=== PATIENT | male | born 1950 | race Native Hawaiian/Other Pacific Islander ===

== ENCOUNTER 2017-07-02 14:35 | Inpatient (IN) | payer MEDICARE ==
[2017-07-02] MEDS ORDERED: Enalaprilat 2.5 MG/2 ML ONE (14:59)
[2017-07-02] MEDS ORDERED: Enalaprilat 2.5 MG/2 ML IVP STA (15:03)
[2017-07-02 15:20] LABS: BASO % 0.3 % (0.0-2.0); EOS # 0.1 K/uL (0.0-0.7); HEMATOCRIT 36.4 % (35.0-51.0); LYMPH # 1.5 K/uL (1.0-4.3); LYMPH % 13.2 % (20.0-40.0); MEAN CELL VOLUME 86.8 fL (80.0-94.0); MEAN CORPUSCULAR HEMOGLOBIN 27.5 pg (27.0-31.0); MEAN CORPUSCULAR HGB CONC 31.7 g/dL (33.0-37.0); MEAN PLATELET VOLUME 8.4 fL (7.2-11.7); MONO # 0.5 K/uL (0.0-0.8); MONO % 4.7 % (0.0-10.0); NRBC % 0.1 % (0.0-2.0)
[2017-07-02 15:27] LABS: INR 1.1; POTASSIUM 4.2 mmol/L (3.6-5.2)
[2017-07-02 15:29] LABS: ALB/GLOB RATIO 0.9 (1.0-2.1); BILIRUBIN,TOTAL 0.6 mg/dL (0.2-1.3); TOTAL PROTEIN 7.6 g/dL (6.3-8.3)
[2017-07-02 15:30] LABS: CALCIUM 8.3 mg/dl (8.6-10.4)
--- NOTE | 2017-07-02 15:38 | RAD ---
HISTORY: SOB COMPARISON: None available. TECHNIQUE: Chest, one view. FINDINGS: Examination limited by habitus, hypoinflation, and patient obliquity. LUNGS: Interstitial prominence may reflect infection or edema. Mild biapical pleural thickening. Please note that chest x-ray has limited sensitivity for the detection of pulmonary masses. PLEURA: Small bilateral pleural effusions. No definite pneumothorax . CARDIOVASCULAR: Enlargement of the cardiomediastinal silhouette. Ectatic aorta. Atherosclerotic calcifications. Median sternotomy wires with evidence of CABG. OSSEOUS STRUCTURES: Degenerative changes. VISUALIZED UPPER ABDOMEN: Unremarkable. OTHER FINDINGS: None. IMPRESSION: Interstitial prominence may reflect infection or edema. Small bilateral pleural effusions. Mild biapical pleural thickening. Enlarged of the cardiomediastinal silhouette. Ectatic aorta. Atherosclerotic calcifications. Median sternotomy wires with evidence of CABG.
[2017-07-02 15:43] LABS: TROPONIN I 0.11 ng/mL (0.00-0.120)
[2017-07-02 16:46] LABS: DRAW SITE RB
[2017-07-02] MEDS ORDERED: Dextrose 50% SYRINGE Inj (50 ml) IV STA ×2 (16:51→21:29)
[2017-07-02] MEDS ORDERED: Dextrose 50% SYRINGE Inj (50 ml) ONE ×3 (16:56→21:26)
[2017-07-02] MEDS ORDERED: Nitroglycerin 2% Ointment Foilpak UD TOP STA (17:00)
[2017-07-02] MEDS ORDERED: Nitroglycerin 2% Ointment Foilpak UD TOP ONE ×2 (17:04→17:09)
[2017-07-02 18:45] LABS: ABG ALLEN TEST POS; DRAW SITE RR
[2017-07-02] MEDS ORDERED: Dextrose 50% SYRINGE Inj (50 ml) IVP STA (18:56)
--- NOTE | 2017-07-02 20:47 | C.PDOC ---
Time Seen by Provider: 07/02/17 14:49 Chief Complaint (Nursing): Respiratory Distress History Per: Patient, Family () History/Exam Limitations: clinical condition Onset/Duration Of Symptoms: Days (about 1 week) Current Symptoms Are (Timing): Worse Current Respiratory Medications: See Home Med List Severity: Severe Associated Symptoms: Chest Pain, Ankle/Leg Swelling, Light-headedness Reports Recently: Treated By A Physician Additional History Per: Prior Records Past Medical History Reviewed: Historical Data, Nursing Documentation, Vital Signs Vital Signs: Last Vital Signs Temp 97.8 F 07/02/17 15:12 Pulse 78 07/02/17 18:57 Resp 26 H 07/02/17 15:52 BP 157/95 H 07/02/17 15:52 Pulse Ox 100 07/02/17 15:52 - Medical History PMH: CHF, Diabetes, HTN, Hypercholesterolemia Other PMH: Cerebral aneurysm Family History: States: Unknown Family Hx - Social History Hx Alcohol Use: No Hx Substance Use: No - Immunization History Hx Tetanus Toxoid Vaccination: No Hx Influenza Vaccination: No Hx Pneumococcal Vaccination: Yes Review Of Systems Constitutional: Positive for: Weakness. Negative for: Fever Cardiovascular: Positive for: Chest Pain, Edema Respiratory: Positive for: Shortness of Breath. Negative for: Hemoptysis Gastrointestinal: Negative for: Vomiting, Abdominal Pain Musculoskeletal: Negative for: Neck Pain Skin: Negative for: Rash Neurological: Positive for: Altered Mental Status. Negative for: Weakness, Seizures, Headache Physical Exam - Physical Exam Appears: In Acute Distress, Chronically Ill Skin: Normal Color, Warm, Dry Head: Atraumatic, Normacephalic Eye(s): bilateral: PERRL Neck: Normal ROM, Supple Cardiovascular: Rhythm Regular Respiratory: Rales Gastrointestinal/Abdominal: Soft, No Tenderness, Distention Extremity: Normal ROM, Pedal Edema Neurological/Psych: Eyes Open With Command, Slow To Respond With Command, Other (Moving all extremities) ED Course And Treatment - Laboratory Results Result Diagrams: 07/02/17 15:14 07/02/17 15:14 Lab Interpretation: Abnormal Interpretation Of Abnormal: Elevated Bun/Cr and BNP ECG: Interpreted By Me, Viewed By Me ECG Rhythm: Sinus Rhythm, R BBB, PVC ECG Interpretation: Abnormal Rate From EC O2 Sat by Pulse Oximetry: 85 Pulse Ox Interpretation: Abnormal Interpretation Of Abnormal: Hypoxia on RA - Radiology CXR: Viewed By Me, Read By Radiologist CXR Interpretation: Yes: Other (CHF) Progress Note: Pt had two hypoglycemic episodes while in the ED that were treated with D50 IV. Pt was also found to be retaining CO2 and was started on BiPAP. - Physician Consult Information Physician Contacted: Cedrick Geronimo (ICU) Outcome Of Conversation: He evaluated pt in the ED and admitted to ICU. Progress - Interventions Interventions:: Observation, Oxygen - Medications Administered Intravenous: Antihypertensive, Diuretic, Other (D50) - Data Reviewed Data Reviewed: Lab, Diagnostic imaging, EKG, Old records - Patient Status Patient status: Partially improved - Critical Care Citical Care: Excluding Proc Time Critical Care Time: 60 minutes - Continuity of Care Discussed patient case with:: Patient, Family-HIPPA compliant, ED Nurse, PMD Discussed pt. case with senior professional services consultant/specialty: Pulmonary/Crit. Care - Patient Plan Patient Plan: Admission, ICU Disposition Discussed With : Paola Adams Comment: She accepted pt on her service. Doctor Will See Patient In The: Hospital Counseled Patient/Family Regarding: Studies Performed, Diagnosis - Disposition Disposition: HOSPITALIZED Disposition Time: 20:51 Condition: SERIOUS - Clinical Impression Clinical Impression: Pulmonary edema, Anasarca, Hypoglycemia
[2017-07-02 21:33] LABS: RBC URINE < 1 /hpf (0-3); URINE BACTERIA RARE (<OCC); URINE BILIRUBIN NEGATIVE (NEGATIVE); URINE BLOOD 1+ (NEGATIVE); URINE COLOR Yellow (YELLOW); URINE GLUCOSE (UA) NORMAL (Normal); URINE HYALINE CAST 0-2 /lpf (0-2); URINE KETONE NEGATIVE (NEGATIVE); URINE LEUKOCYTE ESTERASE NEG Leu/uL (Negative); URINE PROTEIN 3+ mg/dL (NEGATIVE); URINE UROBILINOGEN NORMAL mg/dL (0.2-1.0); WBC URINE < 1 /hpf (0-5)
--- NOTE | 2017-07-02 21:42 | CP.PCM.HP ---
History of Present Illness - History of Present Illness History of Present Illness: 67 yo with IDDM2, Hypertension, CAD s/p CABG ,TIA [place], [place], was sent to ER due to abnormal breathing, low sugar, change in mental status reports that patient has injected insulin more than usual dose today, and sugar went low and had brief change in mental status but patient refused ER , patient came to senses and came to clinic ambulatory, and patient was found to have fluid overload, uncontrolled hypertension and was advised to go to ER . in ER patient CXR confirmed fluid overload and was placed on BIPAP, given D50 for hypoglycemia, and patient was admitted to ICU for further evaluation and management Present on Admission - Present on Admission Any Indicators Present on Admission: Yes History of DVT/PE: No History of Uncontrolled Diabetes: Yes Urinary Catheter: No Decubitus Ulcer Present: No Review of Systems - Review of Systems Systems not reviewed;Unavailable: Respiratory Distress - Constitutional Constitutional: Lethargy, Weakness - EENT Eyes: Other Visual Disturbances Nose/Mouth/Throat: Epistaxis, Nasal Congestion - Cardiovascular Cardiovascular: Dyspnea, Dyspnea on Exertion - Respiratory Respiratory: absent: Cough, Hemoptysis, Wheezing - Gastrointestinal Gastrointestinal: absent: Abdominal Pain, Diarrhea, Vomiting - Genitourinary Genitourinary: absent: Dysuria - Integumentary Integumentary: absent: Rash, Unusual Bruising - Psychiatric Psychiatric: Behavioral Changes, Confusion. absent: Hallucinations - Endocrine Endocrine: Fatigue. absent: Polydipsia, Polyphagia, Polyuria - Hematologic/Lymphatic Hematologic: absent: Easy Bleeding, Easy Bruising Past Patient History - Infectious Disease Hx of Infectious Diseases: None - Past Medical History & Family History Past Medical History?: Yes - Past Social History Smoking Status: Never Smoked - CARDIAC Hx Cardiac Disorders: Yes Hx Congestive Heart Failure: Yes Hx Hypercholesterolemia: Yes Hx Hypertension: Yes - NEUROLOGICAL Other/Comment: stroke 2011 - ENDOCRINE/METABOLIC Hx Diabetes Mellitus Type 2: Yes - PSYCHIATRIC Hx Substance Use: No - SURGICAL HISTORY Other/Comment: triple by pass 2005 - ANESTHESIA Hx Anesthesia: Yes Meds Allergies/Adverse Reactions: Allergies Allergy/AdvReac Type Severity Reaction Status Date / Time No Known Allergies Allergy Verified 07/02/17 14:39 Physical Exam - Constitutional Appears: In Acute Distress (when seen initially was breathng though mouth episodically but is conversant and ambulatory) - Head Exam Head Exam: ATRAUMATIC, NORMOCEPHALIC - Eye Exam Eye Exam: Normal appearance. absent: Nystagmus - ENT Exam ENT Exam: Mucous Membranes Moist - Respiratory Exam Respiratory Exam: Decreased Breath Sounds, NORMAL BREATHING PATTERN. absent: Wheezes - Cardiovascular Exam Cardiovascular Exam: REGULAR RHYTHM - GI/Abdominal Exam GI & Abdominal Exam: Normal Bowel Sounds, Soft. absent: Tenderness - Extremities Exam Extremities exam: Positive for: full ROM, pedal edema (pitting no redness non tender), pedal pulses present (hard to feel due to edema ) - Back Exam Back exam: absent: rash noted, tenderness - Neurological Exam Neurological exam: Alert (with alternating altered mental status ), Normal Gait , Oriented x3 - Psychiatric Exam Psychiatric exam: Normal Affect (quiet follows command) - Skin Skin Exam: Intact, Normal Color Results - Vital Signs Recent Vital Signs: Last Vital Signs Temp 97.6 F 07/02/17 21:18 Pulse 67 07/02/17 21:18 Resp 26 H 07/02/17 15:52 BP 151/99 H 07/02/17 21:18 Pulse Ox 18 L 07/02/17 21:18 - Labs Result Diagrams: 07/03/17 06:04 07/03/17 06:04 Labs: Laboratory Results - last 24 hr 07/02/17 07/02/17 07/02/17 15:14 15:14 15:14 WBC 11.0 H RBC 4.19 L Hgb 11.5 L Hct 36.4 MCV 86.8 MCH 27.5 MCHC 31.7 L RDW 18.0 H Plt Count 249 MPV 8.4 Neut % (Auto) 80.8 H Lymph % (Auto) 13.2 L [place] % (Auto) 4.7 Eos % (Auto) 1.0 Baso % (Auto) 0.3 Neut # 8.9 H Lymph # 1.5 [place] # 0.5 Eos # 0.1 Baso # 0.0 PT 12.4 H INR 1.1 APTT 34 Puncture Site pCO2 pO2 HCO3 ABG pH ABG Total CO2 ABG O2 Saturation ABG Base Excess [place] Test ABG Potassium A-a O2 Difference Respiratory Index Glucose Lactate Liter Flow FiO2 Inspiratory BiPAP Expiratory BiPAP Sodium 135 Potassium 4.2 Chloride 99 Carbon Dioxide 28 Anion Gap 12 BUN 33 H Creatinine 1.9 H Est GFR ( Amer) 43 Est GFR (Non-Af Amer) 36 POC Glucose (mg/dL) Random Glucose 93 Calcium 8.3 L Magnesium 2.0 Total Bilirubin 0.6 AST 46 ALT 72 Alkaline Phosphatase 108 Troponin I 0.1100 NT-Pro-B Natriuret Pep 6460 H Total Protein 7.6 Albumin 3.5 Globulin 4.1 H Albumin/Globulin Ratio 0.9 L Arterial Blood Potassium Urine Color Urine Clarity Urine pH Ur Specific [place] Urine Protein Urine Glucose (UA) Urine Ketones Urine Blood Urine Nitrate Urine Bilirubin Urine Urobilinogen Ur Leukocyte Esterase Urine WBC (Auto) Urine RBC (Auto) Urine Bacteria Hyaline Casts 07/02/17 07/02/17 07/02/17 16:40 17:32 18:36 WBC RBC Hgb Hct MCV MCH MCHC RDW Plt Count MPV Neut % (Auto) Lymph % (Auto) [place] % (Auto) Eos % (Auto) Baso % (Auto) Neut # Lymph # [place] # Eos # Baso # PT INR APTT Puncture Site Rb Rr pCO2 64 H 61 H pO2 88 140 H HCO3 25.6 25.4 ABG pH 7.27 L 7.28 L ABG Total CO2 31.4 H 30.6 H ABG O2 Saturation 96.9 99.3 H ABG Base Excess 0.9 0.5 [place] Test Na Pos ABG Potassium 4.1 4.3 A-a O2 Difference 60.0 69.0 Respiratory Index 0.7 0.5 Glucose 60 L 53 L Lactate 0.5 L 0.6 L Liter Flow 3.0 FiO2 32.0 40.0 Inspiratory BiPAP 12 Expiratory BiPAP 6 Sodium 139.0 136.0 Potassium Chloride 108.0 H 108.0 H Carbon Dioxide Anion Gap BUN Creatinine Est GFR ( Amer) Est GFR (Non-Af Amer) POC Glucose (mg/dL) 110 Random Glucose Calcium Magnesium Total Bilirubin AST ALT Alkaline Phosphatase Troponin I NT-Pro-B Natriuret Pep Total Protein Albumin Globulin Albumin/Globulin Ratio Arterial Blood Potassium 4.1 4.3 Urine Color Urine Clarity Urine pH Ur Specific [place] Urine Protein Urine Glucose (UA) Urine Ketones Urine Blood Urine Nitrate Urine Bilirubin Urine Urobilinogen Ur Leukocyte Esterase Urine WBC (Auto) Urine RBC (Auto) Urine Bacteria Hyaline Casts 07/02/17 07/02/17 07/02/17 18:55 20:01 21:12 WBC RBC Hgb Hct MCV MCH MCHC RDW Plt Count MPV Neut % (Auto) Lymph % (Auto) [place] % (Auto) Eos % (Auto) Baso % (Auto) Neut # Lymph # [place] # Eos # Baso # PT INR APTT Puncture Site pCO2 pO2 HCO3 ABG pH ABG Total CO2 ABG O2 Saturation ABG Base Excess [place] Test ABG Potassium A-a O2 Difference Respiratory Index Glucose Lactate Liter Flow FiO2 Inspiratory BiPAP Expiratory BiPAP Sodium Potassium Chloride Carbon Dioxide Anion Gap BUN Creatinine Est GFR ( Amer) Est GFR (Non-Af Amer) POC Glucose (mg/dL) 47 L 92 Random Glucose Calcium Magnesium Total Bilirubin AST ALT Alkaline Phosphatase Troponin I NT-Pro-B Natriuret Pep Total Protein Albumin Globulin Albumin/Globulin Ratio Arterial Blood Potassium Urine Color Yellow Urine Clarity Clear Urine pH 5.0 Ur Specific [place] 1.011 Urine Protein 3+ H Urine Glucose (UA) Normal Urine Ketones Negative Urine Blood 1+ H Urine Nitrate Negative Urine Bilirubin Negative Urine Urobilinogen Normal Ur Leukocyte Esterase Neg Urine WBC (Auto) < 1 Urine RBC (Auto) < 1 Urine Bacteria Rare Hyaline Casts 0-2 07/02/17 21:20 WBC RBC Hgb Hct MCV MCH MCHC RDW Plt Count MPV Neut % (Auto) Lymph % (Auto) [place] % (Auto) Eos % (Auto) Baso % (Auto) Neut # Lymph # [place] # Eos # Baso # PT INR APTT Puncture Site pCO2 pO2 HCO3 ABG pH ABG Total CO2 ABG O2 Saturation ABG Base Excess [place] Test ABG Potassium A-a O2 Difference Respiratory Index Glucose Lactate Liter Flow FiO2 Inspiratory BiPAP Expiratory BiPAP Sodium Potassium Chloride Carbon Dioxide Anion Gap BUN Creatinine Est GFR ( Amer) Est GFR (Non-Af Amer) POC Glucose (mg/dL) 48 L Random Glucose Calcium Magnesium Total Bilirubin AST ALT Alkaline Phosphatase Troponin I NT-Pro-B Natriuret Pep Total Protein Albumin Globulin Albumin/Globulin Ratio Arterial Blood Potassium Urine Color Urine Clarity Urine pH Ur Specific [place] Urine Protein Urine Glucose (UA) Urine Ketones Urine Blood Urine Nitrate Urine Bilirubin Urine Urobilinogen Ur Leukocyte Esterase Urine WBC (Auto) Urine RBC (Auto) Urine Bacteria Hyaline Casts Assessment & Plan - Assessment and Plan (Free Text) Assessment: Patient with Chronic Uncontrolled IDDM2- with poor compliance to food and medications- had injected extra dose of insulin with brief altered mental status Pulmonary Edema/fluid overload, ICU care, cardiac consult Altered mental status- most likely metabolic-and from hypoglycemia-from Insulin overdose , rule out neuro further evaluation IDDM with hypoglycemia dus to extra insulin dose Respiratory distress- ICU care ,Pulmonary Dr Alves notified History of TIA -further neuro evaluation CAD,CRI-renal, with fluid overload- will consult renal ZOFIA to check further evaluation and management - Date & Time Date: 07/02/17 Time: 09:00
[2017-07-02] MEDS ORDERED: Dexamethasone 4 mg/1 ml IVP ONE (21:45)
--- NOTE | 2017-07-02 22:05 | CT ---
EXAM: CT Head Without Intravenous Contrast CLINICAL HISTORY: 67 years old, male; Signs and symptoms; Other: Lethargy TECHNIQUE: Axial computed tomography images of the head/brain without intravenous contrast. All CT scans at this facility use one or more dose reduction techniques, viz.: automated exposure control; ma/kV adjustment per patient size (including targeted exams where dose is matched to indication; i.e. head); or iterative reconstruction technique. Coronal and sagittal reformatted images were created and reviewed. COMPARISON: No relevant prior studies available. FINDINGS: Limitations: Motion artifact - mild. Brain: Mild atrophy. No definite intracranial hemorrhage. No mass. Few scattered foci of decreased attenuation within periventricular/subcortical white matter. Probable chronic lacunar infarct within LEFT frontal region. Chronic lacunar infarct within RIGHT thalamus. No definite edema. Ventricles: No hydrocephalus. Bones/joints: No acute fracture. Soft tissues: Unremarkable. Vasculature: Atherosclerotic disease of intracranial arteries. Sinuses: Scattered mild mucosal thickening. Mastoid air cells: No mastoid effusion. Orbits: Unremarkable as visualized. Dental: Dental crystal. Other findings: Probable sebaceous cyst within posterior neck. IMPRESSION: 1. Nonspecific white matter changes. Acute infarction may be CT occult within first 24 hours. If a focal deficit persists, consider followup CT or MRI for further evaluation. 2. Incidental/non-acute findings are described above.
--- NOTE | 2017-07-02 22:21 | CT ---
EXAM: CT Chest Without Intravenous Contrast CLINICAL HISTORY: 67 years old, male; Signs and symptoms; Bloating; Shortness of breath; Additional info: Anasarca, possible right infiltrate, SOB TECHNIQUE: Axial computed tomography images of the chest without intravenous contrast. All CT scans at this facility use one or more dose reduction techniques, viz.: automated exposure control; ma/kV adjustment per patient size (including targeted exams where dose is matched to indication; i.e. head); or iterative reconstruction technique. Coronal and sagittal reformatted images were created and reviewed. COMPARISON: No relevant prior studies available. FINDINGS: Limitations: Motion artifact - mild. Lack of intravenous contrast. Lungs: Mild peripheral consolidation with associated volume loss within LEFT lower lobe. Mild mosaic pattern of lung parenchyma. Scattered mild groundglass opacities. Mild interlobular septal thickening. Mild linear atelectasis/scarring. Pleural space: Small RIGHT pleural effusion. Small to moderate LEFT pleural effusion. No pneumothorax. Heart: Moderate to severe cardiomegaly. No significant pericardial effusion. Coronary artery calcifications. Bones/joints: Median sternotomy. Several chronic RIGHT rib deformities. Postsurgical changes of upper thoracic spine with fusion. Soft tissues: Mild stranding within subcutaneous tissues. Vasculature: Ectasia of ascending thoracic aorta, up to 4.2 cm in diameter. Moderate atherosclerotic disease. Lymph nodes: No pathologically enlarged lymph nodes. IMPRESSION: 1. Findings compatible with pulmonary edema. Superimposed pneumonia not excluded. Clinical correlation is needed. 2. Incidental/non-acute findings are described above. EXAM: CT Abdomen and Pelvis Without Intravenous Contrast CLINICAL HISTORY: 67 years old, male; Signs and symptoms; Bloating; Shortness of breath; Additional info: Anasarca, possible right infiltrate, SOB TECHNIQUE: Axial computed tomography images of the abdomen and pelvis without intravenous contrast. All CT scans at this facility use one or more dose reduction techniques, viz.: automated exposure control; ma/kV adjustment per patient size (including targeted exams where dose is matched to indication; i.e. head); or iterative reconstruction technique. Coronal and sagittal reformatted images were created and reviewed. COMPARISON: No relevant prior studies available. FINDINGS: Limitations: Motion artifact - mild. Lack of intravenous contrast. ABDOMEN: Liver: Unremarkable. Gallbladder and bile ducts: Calcified gallstone. No ductal dilation. Pancreas: Unremarkable. No ductal dilation. Spleen: No splenomegaly. Adrenals: Mild hypertrophy of adrenal glands. Kidneys and ureters: Few probable renal cysts. No renal calculi. No hydronephrosis. Stomach and bowel: No definite mural thickening. No obstruction. Appendix: Normal caliber. No inflammation. PELVIS: Bladder: Unremarkable. No stones. Reproductive: Mildly enlarged prostate. ABDOMEN and PELVIS: Intraperitoneal space: No significant fluid collection. No free air. Bones/joints: Mild degenerative changes of spine. Chronic L5 pars defects. Soft tissues: Mild stranding within subcutaneous tissues. Mild skin thickening about umbilicus. Tiny umbilical hernia containing fat. Vasculature: Moderate atherosclerotic disease. No aneurysm. Lymph nodes: No pathologically enlarged lymph nodes. IMPRESSION: 1. Cholelithiasis. 2. Incidental/non-acute findings are described above.
--- NOTE | 2017-07-02 22:58 | CP.PCM.CON ---
History of Present Illness - History of Present Illness History of Present Illness: 67 M with h/o CAD, CABG, stroke about 5 yrs back, ? h/o aneurysm with attempt to treat in [facility], labile DM on OHA/insulin both long and short acting, CRI vs DAWN, gout was noticed by for last 3 days had been lethargic, gradually worsening edema in the body, irratic way of breathing, and refusing to be seen by physician. Patient was brought to PMD office noticed above and referred urgent to ER. He was found hyptensive, lethargic hypoglycemic , with retaining CO2, needing very minimal O2. Patient needed dextrose 50% 3 times, iv enalpril, subq ntg, iv lasix in ER. Patient at the time of eval sleepy but arosable with moving all ext on command, trying to remove bipap mask. provided above information. As per the he might have taken extra insulin, has not been eating enough. PMH as above Allergies NKDA Family history not contributory Meds reviewed including Jardiance, metformin, arb, plavix, asa, metoprolol, glipizide, it's unclear if patient took all the meds today Social history lives with , retired, has 5 children 4 live with family, denied any smoking, occasional wine, denied any drugs BOU[facility] CT ordered by me including Head, chest/abd/pelvis Head CT shows old left and right basal ganglia strokes, Chest, interstitial edema, area of alveolar infiltrates, b/l effusion, CMG, abd CT shows skin edema , calcified artery, gb stone. Review of Systems - Review of Systems All systems: reviewed and no additional remarkable complaints except (HPI) Past Patient History - Infectious Disease Hx of Infectious Diseases: None - Past Medical History & Family History Past Medical History?: Yes - Past Social History Smoking Status: Never Smoked Alcohol: Occasional Home Situation {Lives}: With Family Domestic Violence: Negative - CARDIAC Hx Cardiac Disorders: Yes Hx Congestive Heart Failure: Yes Hx Hypercholesterolemia: Yes Hx Hypertension: Yes - NEUROLOGICAL Other/Comment: stroke 2011 - ENDOCRINE/METABOLIC Hx Diabetes Mellitus Type 2: Yes - PSYCHIATRIC Hx Substance Use: No - SURGICAL HISTORY Other/Comment: triple by pass 2006 - ANESTHESIA Hx Anesthesia: Yes Meds Allergies/Adverse Reactions: Allergies Allergy/AdvReac Type Severity Reaction Status Date / Time No Known Allergies Allergy Verified 07/02/17 14:39 - Medications Medications: Current Medications Dextrose (Dextrose 10% In Water) 1,000 mls @ 100 mls/hr IV .Q10H RANDOLPH Last Admin: 07/02/17 21:44 Dose: 100 mls/hr Pantoprazole Sodium (Protonix Ec Tab) 40 mg PO DAILY RANDOLPH Physical Exam - Additional Findings Additional findings: * HEENT slow reacting pupils * Neck short, wide * Chest reduced air entry in both basis * CVS regular, no gallop or rub * PA soft, distended, non tender, bs present * Ext cold all 4, reduced pulses, edema 3+ both lower legs up till mid thigh, arms skin edematous * RN BABY arouasble, moving all ext on command, does not other tran communicate, plantar down going * skin increased turgur suggesting volume overload. Results - Vital Signs Recent Vital Signs: Last Vital Signs Temp 97.6 F 07/02/17 21:18 Pulse 80 07/02/17 22:09 Resp 26 H 07/02/17 15:52 BP 151/99 H 07/02/17 21:18 Pulse Ox 18 L 07/02/17 21:18 - Labs Result Diagrams: 07/02/17 15:14 07/02/17 15:14 Labs: Laboratory Results - last 24 hr 07/02/17 07/02/17 07/02/17 15:14 15:14 15:14 WBC 11.0 H RBC 4.19 L Hgb 11.5 L Hct 36.4 MCV 86.8 MCH 27.5 MCHC 31.7 L RDW 18.0 H Plt Count 249 MPV 8.4 Neut % (Auto) 80.8 H Lymph % (Auto) 13.2 L Winkler % (Auto) 4.7 Eos % (Auto) 1.0 Baso % (Auto) 0.3 Neut # 8.9 H Lymph # 1.5 Winkler # 0.5 Eos # 0.1 Baso # 0.0 PT 12.4 H INR 1.1 APTT 34 Puncture Site pCO2 pO2 HCO3 ABG pH ABG Total CO2 ABG O2 Saturation ABG Base Excess Luis [place] Test ABG Potassium A-a O2 Difference Respiratory Index Glucose Lactate Liter Flow FiO2 Inspiratory BiPAP Expiratory BiPAP Sodium 135 Potassium 4.2 Chloride 99 Carbon Dioxide 28 Anion Gap 12 BUN 33 H Creatinine 1.9 H Est GFR ( Amer) 43 Est GFR (Non-Af Amer) 36 POC Glucose (mg/dL) Random Glucose 93 Calcium 8.3 L Magnesium 2.0 Total Bilirubin 0.6 AST 46 ALT 72 Alkaline Phosphatase 108 Troponin I 0.1100 NT-Pro-B Natriuret Pep 6460 H Total Protein 7.6 Albumin 3.5 Globulin 4.1 H Albumin/Globulin Ratio 0.9 L Arterial Blood Potassium Urine Color Urine Clarity Urine pH Ur Specific [place] Urine Protein Urine Glucose (UA) Urine Ketones Urine Blood Urine Nitrate Urine Bilirubin Urine Urobilinogen Ur Leukocyte Esterase Urine WBC (Auto) Urine RBC (Auto) Urine Bacteria Hyaline Casts 07/02/17 07/02/17 07/02/17 16:40 17:32 18:36 WBC RBC Hgb Hct MCV MCH MCHC RDW Plt Count MPV Neut % (Auto) Lymph % (Auto) Winkler % (Auto) Eos % (Auto) Baso % (Auto) Neut # Lymph # Winkler # Eos # Baso # PT INR APTT Puncture Site Rb Rr pCO2 64 H 61 H pO2 88 140 H HCO3 25.6 25.4 ABG pH 7.27 L 7.28 L ABG Total CO2 31.4 H 30.6 H ABG O2 Saturation 96.9 99.3 H ABG Base Excess 0.9 0.5 Luis Carlos Test Na Pos ABG Potassium 4.1 4.3 A-a O2 Difference 60.0 69.0 Respiratory Index 0.7 0.5 Glucose 60 L 53 L Lactate 0.5 L 0.6 L Liter Flow 3.0 FiO2 32.0 40.0 Inspiratory BiPAP 12 Expiratory BiPAP 6 Sodium 139.0 136.0 Potassium Chloride 108.0 H 108.0 H Carbon Dioxide Anion Gap BUN Creatinine Est GFR ( Amer) Est GFR (Non-Af Amer) POC Glucose (mg/dL) 110 Random Glucose Calcium Magnesium Total Bilirubin AST ALT Alkaline Phosphatase Troponin I NT-Pro-B Natriuret Pep Total Protein Albumin Globulin Albumin/Globulin Ratio Arterial Blood Potassium 4.1 4.3 Urine Color Urine Clarity Urine pH Ur Specific [place] Urine Protein Urine Glucose (UA) Urine Ketones Urine Blood Urine Nitrate Urine Bilirubin Urine Urobilinogen Ur Leukocyte Esterase Urine WBC (Auto) Urine RBC (Auto) Urine Bacteria Hyaline Casts 07/02/17 07/02/17 07/02/17 18:55 20:01 21:12 WBC RBC Hgb Hct MCV MCH MCHC RDW Plt Count MPV Neut % (Auto) Lymph % (Auto) Winkler % (Auto) Eos % (Auto) Baso % (Auto) Neut # Lymph # Winkler # Eos # Baso # PT INR APTT Puncture Site pCO2 pO2 HCO3 ABG pH ABG Total CO2 ABG O2 Saturation ABG Base Excess [place] Test ABG Potassium A-a O2 Difference Respiratory Index Glucose Lactate Liter Flow FiO2 Inspiratory BiPAP Expiratory BiPAP Sodium Potassium Chloride Carbon Dioxide Anion Gap BUN Creatinine Est GFR ( Amer) Est GFR (Non-Af Amer) POC Glucose (mg/dL) 47 L 92 Random Glucose Calcium Magnesium Total Bilirubin AST ALT Alkaline Phosphatase Troponin I NT-Pro-B Natriuret Pep Total Protein Albumin Globulin Albumin/Globulin Ratio Arterial Blood Potassium Urine Color Yellow Urine Clarity Clear Urine pH 5.0 Ur Specific [place] 1.011 Urine Protein 3+ H Urine Glucose (UA) Normal Urine Ketones Negative Urine Blood 1+ H Urine Nitrate Negative Urine Bilirubin Negative Urine Urobilinogen Normal Ur Leukocyte Esterase Neg Urine WBC (Auto) < 1 Urine RBC (Auto) < 1 Urine Bacteria Rare Hyaline Casts 0-2 07/02/17 07/02/17 07/02/17 21:20 21:27 22:29 WBC RBC Hgb Hct MCV MCH MCHC RDW Plt Count MPV Neut % (Auto) Lymph % (Auto) Winkler % (Auto) Eos % (Auto) Baso % (Auto) Neut # Lymph # Winkler # Eos # Baso # PT INR APTT Puncture Site pCO2 pO2 HCO3 ABG pH ABG Total CO2 ABG O2 Saturation ABG Base Excess [place] Test ABG Potassium A-a O2 Difference Respiratory Index Glucose Lactate Liter Flow FiO2 Inspiratory BiPAP Expiratory BiPAP Sodium Potassium Chloride Carbon Dioxide Anion Gap BUN Creatinine Est GFR ( Amer) Est GFR (Non-Af Amer) POC Glucose (mg/dL) 48 L 49 L 105 Random Glucose Calcium Magnesium Total Bilirubin AST ALT Alkaline Phosphatase Troponin I NT-Pro-B Natriuret Pep Total Protein Albumin Globulin Albumin/Globulin Ratio Arterial Blood Potassium Urine Color Urine Clarity Urine pH Ur Specific [place] Urine Protein Urine Glucose (UA) Urine Ketones Urine Blood Urine Nitrate Urine Bilirubin Urine Urobilinogen Ur Leukocyte Esterase Urine WBC (Auto) Urine RBC (Auto) Urine Bacteria Hyaline Casts Assessment & Plan - Assessment and Plan (Free Text) Assessment: 67 M with h/o CAD, CABG, stroke about 5 yrs back, ? h/o aneurysm with attempt to treat in [facility], labile DM on OHA/insulin both long and short acting, CRI vs DAWN, gout was noticed by for last 3 days had been lethargic, gradually worsening edema in the body, irratic way of breathing, and refusing to be seen by physician. Patient was brought to PMD office noticed above and referred urgent to ER. He was found hyptensive, lethargic hypoglycemic , with retaining CO2, needing very minimal O2. Patient needed dextrose 50% 3 times, iv enalpril, subq ntg, iv lasix in ER. * Lethargy probably form acute metabolic ecephalopathy from prolonged and/or recurrent hypoglycemia * HTN urgency likely due to above from sympathetic response * DAWN vs CRI will need prior chemistries will obtain from PMD, UA does not show significant RBC, 3+ protien is noticed which could be acute as serum protein still 3.5 in normal range * CHF likely the cause of anasraca more of right side then left, with htn urgency * Plan: * Monitor, maintain euglycemia on D10 at 100ml/hr, given a dose of iv decadron to increase glyconeogensis * Continue BIPAP monitory ph and CO2, needing minimum o2 currently 25%FIO2 * IV diuresis, control bp * Monitor renal function, prot/creat ordered for spot urine but could be from acute stress as well, hold ACEI/ARB, metformin, OHA, prn control of bp with hydralazine, metoprolol, nitrates, glucose control mainly by insulin * Echo * Prior records * Emperic abx, blood cultures ordered, procalcitonin ordered, could be discontinued if further test lean towards pulm/interstitial edema * GI/DVT prophylaxis * See orders for detail.
[2017-07-02 23:10] LABS: VENOUS BLOOD GAS BASE EXCESS 0.1 mmol/L (0.0-2.0); VENOUS BLOOD GAS PCO2 58 mmHg (40-60); VENOUS BLOOD PH 7.29 (7.32-7.43)
[2017-07-03 06:13] LABS: BASO % 0.3 % (0.0-2.0); EOS % 0.1 % (0.0-4.0); HEMATOCRIT 35.8 % (35.0-51.0); LYMPH # 0.6 K/uL (1.0-4.3); LYMPH % 5.8 % (20.0-40.0); MEAN CELL VOLUME 87.6 fL (80.0-94.0); MEAN CORPUSCULAR HEMOGLOBIN 27.6 pg (27.0-31.0); MEAN CORPUSCULAR HGB CONC 31.5 g/dL (33.0-37.0); MEAN PLATELET VOLUME 8.4 fL (7.2-11.7); MONO # 0.2 K/uL (0.0-0.8); MONO % 1.5 % (0.0-10.0); NRBC % 0.2 % (0.0-2.0); PLATELET COUNT 246 K/uL (130-400); RED CELL DISTRIBUTION WIDTH 18.3 % (11.5-14.5); WHITE BLOOD COUNT 10.3 K/uL (4.8-10.8)
[2017-07-03 06:43] LABS: POTASSIUM 4.3 mmol/L (3.6-5.2)
[2017-07-03 06:45] LABS: ALB/GLOB RATIO 0.8 (1.0-2.1); BILIRUBIN,TOTAL 0.6 mg/dL (0.2-1.3); TOTAL PROTEIN 7.6 g/dL (6.3-8.3)
[2017-07-03 06:46] LABS: CALCIUM 8.6 mg/dl (8.6-10.4); MAGNESIUM 2.1 mg/dL (1.6-2.3)
[2017-07-03 07:17] LABS: THYROID STIMULATING HORMONE 0.65 mIU/L (0.46-4.68)
--- NOTE | 2017-07-03 07:17 | CP.PCM.PN ---
Subjective - Date & Time of Evaluation Date of Evaluation: 07/03/17 Time of Evaluation: 09:00 - Subjective Subjective: Patient seen- in ICU by bedside, further discussion of patient's condition patient seems lethargic Laboratory noted- fortROMI slightly elevated afebrile no cough discussion with ICU staff on D10 drip for prolonged hypoglycemia Objective - Vital Signs/Intake and Output Vital Signs (last 24 hours): Temp Pulse Resp BP Pulse Ox 97.6 F 77 23 132/79 99 07/03/17 01:00 07/03/17 06:01 07/03/17 06:01 07/03/17 06:01 07/03/17 06:00 Intake and Output: 07/03/17 07/03/17 06:59 18:59 Intake Total 700 Output Total 800 Balance -100 - Medications Medications: Current Medications Allopurinol (Zyloprim) 100 mg PO DAILY RANDOLPH Furosemide (Lasix) 40 mg IVP Q12 RANDOLPH Heparin Sodium (Porcine) (Heparin) 5,000 units SC Q12 RANDOLPH Hydralazine HCl (Apresoline) 10 mg IVP Q6H RANDOLPH Last Admin: 07/03/17 05:50 Dose: 10 mg Dextrose (Dextrose 10% In Water) 1,000 mls @ 100 mls/hr IV .Q10H RANDOLPH Last Admin: 07/03/17 03:00 Dose: 100 mls/hr Insulin Human Regular (Novolin R) 0 unit SC ACHS [facility] PRN Reason: Protocol Metoprolol Tartrate (Lopressor) 25 mg PO BID RANDOLPH Pantoprazole Sodium (Protonix Ec Tab) 40 mg PO DAILY RANDOLPH - Labs Labs: 07/03/17 06:04 07/03/17 06:04 PT 12.4 SECONDS (9.7-12.2) H 07/02/17 15:14 INR 1.1 07/02/17 15:14 APTT 34 SECONDS (21-34) 07/02/17 15:14 - Constitutional Appears: Other (lethargic, opens eyes and falls back to sleep , not intubated) - Head Exam Head Exam: ATRAUMATIC, NORMOCEPHALIC - Eye Exam Eye Exam: Normal appearance. absent: Nystagmus - ENT Exam ENT Exam: Mucous Membranes Moist - Neck Exam Neck Exam: absent: Meningismus - Respiratory Exam Respiratory Exam: Decreased Breath Sounds, NORMAL BREATHING PATTERN. absent: Wheezes - Cardiovascular Exam Cardiovascular Exam: REGULAR RHYTHM - GI/Abdominal Exam GI & Abdominal Exam: Soft (obese), Normal Bowel Sounds. absent: Tenderness - Extremities Exam Extremities Exam: Pedal Edema - Neurological Exam Neurological Exam: Altered (no paralysis) - Skin Skin Exam: Intact, Normal Color Assessment and Plan - Assessment and Plan (Free Text) Plan: Patient with history of Hypertension CAD s/p CABG CRI, Stroke admitted for Fluid overload, altered mental status with persistent hypoglycemia , respiratory distress on ICU care, no electrolyte abnormality slight ZOFIA elevation further evalution and ICU care
--- NOTE | 2017-07-03 07:29 | CP.PCM.CON ---
History of Present Illness - History of Present Illness History of Present Illness: CONSULT DICTATED BILATERAL CEREBRAL DYSFUNCTION ?? PARTIAL COMPLEX SEIZURE TOXIC Vs METABOLIC OHS/MARCIE TO BE WORKED UP WOURK UP PER ORDER Past Patient History - Infectious Disease Hx of Infectious Diseases: None - Past Medical History & Family History Past Medical History?: Yes - Past Social History Smoking Status: Never Smoked - CARDIAC Hx Cardiac Disorders: Yes Hx Congestive Heart Failure: Yes Hx Hypercholesterolemia: Yes Hx Hypertension: Yes - PULMONARY Hx Respiratory Disorders: No - NEUROLOGICAL Other/Comment: stroke 2011 - HEENT Hx HEENT Problems: No - RENAL Hx Chronic Kidney Disease: Yes Other/Comment: CRI - ENDOCRINE/METABOLIC Hx Diabetes Mellitus Type 2: Yes - HEMATOLOGICAL/ONCOLOGICAL Hx Blood Disorders: No - INTEGUMENTARY Hx Dermatological Problems: No - MUSCULOSKELETAL/RHEUMATOLOGICAL Hx Musculoskeletal Disorders: No Hx Falls: Yes - GASTROINTESTINAL Hx Gastrointestinal Disorders: No - GENITOURINARY/GYNECOLOGICAL Hx Genitourinary Disorders: No - PSYCHIATRIC Hx Substance Use: No - SURGICAL HISTORY Other/Comment: triple by pass 2005 - ANESTHESIA Hx Anesthesia: Yes Meds Allergies/Adverse Reactions: Allergies Allergy/AdvReac Type Severity Reaction Status Date / Time No Known Allergies Allergy Verified 07/02/17 14:39 - Medications Medications: Current Medications Allopurinol (Zyloprim) 100 mg PO DAILY [facility] Furosemide (Lasix) 40 mg IVP Q12 [facility] Heparin Sodium (Porcine) (Heparin) 5,000 units SC Q12 [facility] Hydralazine HCl (Apresoline) 10 mg IVP Q6H [facility] Last Admin: 07/03/17 05:50 Dose: 10 mg Dextrose (Dextrose 10% In Water) 1,000 mls @ 100 mls/hr IV .Q10H [facility] Last Admin: 07/03/17 03:00 Dose: 100 mls/hr Insulin Human Regular (Novolin R) 0 unit SC ACHS [facility] PRN Reason: Protocol Metoprolol Tartrate (Lopressor) 25 mg PO BID [facility] Pantoprazole Sodium (Protonix Ec Tab) 40 mg PO DAILY [facility] Results - Vital Signs Recent Vital Signs: Last Vital Signs Temp 97.6 F 07/03/17 01:00 Pulse 77 07/03/17 06:01 Resp 23 07/03/17 06:01 BP 132/79 07/03/17 06:01 Pulse Ox 99 07/03/17 06:00 - Labs Result Diagrams: 07/03/17 06:04 07/03/17 06:04 Labs: Laboratory Results - last 24 hr 07/02/17 07/02/17 07/02/17 15:14 15:14 15:14 WBC 11.0 H RBC 4.19 L Hgb 11.5 L Hct 36.4 MCV 86.8 MCH 27.5 MCHC 31.7 L RDW 18.0 H Plt Count 249 MPV 8.4 Neut % (Auto) 80.8 H Lymph % (Auto) 13.2 L [place] % (Auto) 4.7 Eos % (Auto) 1.0 Baso % (Auto) 0.3 Neut # 8.9 H Lymph # 1.5 [place] # 0.5 Eos # 0.1 Baso # 0.0 PT 12.4 H INR 1.1 APTT 34 Puncture Site pCO2 pO2 HCO3 ABG pH ABG Total CO2 ABG O2 Saturation ABG Base Excess [place] Test ABG Potassium VBG pH VBG pCO2 VBG HCO3 VBG Total CO2 VBG O2 Sat (Calc) VBG Base Excess VBG Potassium A-a O2 Difference Respiratory Index Glucose Lactate Liter Flow FiO2 Inspiratory BiPAP Expiratory BiPAP Crit Value Called To Crit Value Called By Crit Value Read Back Blood Gas Notified Time Sodium 135 Potassium 4.2 Chloride 99 Carbon Dioxide 28 Anion Gap 12 BUN 33 H Creatinine 1.9 H Est GFR ( Amer) 43 Est GFR (Non-Af Amer) 36 POC Glucose (mg/dL) Random Glucose 93 Hemoglobin A1c Calcium 8.3 L Magnesium 2.0 Total Bilirubin 0.6 AST 46 ALT 72 Alkaline Phosphatase 108 Total Creatine Kinase CK-MB (Mass) Troponin I 0.1100 Troponin I, Quant NT-Pro-B Natriuret Pep 6460 H Total Protein 7.6 Albumin 3.5 Globulin 4.1 H Albumin/Globulin Ratio 0.9 L TSH 3rd Generation Arterial Blood Potassium Venous Blood Potassium Urine Color Urine Clarity Urine pH Ur Specific [place] Urine Protein Urine Glucose (UA) Urine Ketones Urine Blood Urine Nitrate Urine Bilirubin Urine Urobilinogen Ur Leukocyte Esterase Urine WBC (Auto) Urine RBC (Auto) Urine Bacteria Hyaline Casts Ur Random Creatinine U Random Total Protein 07/02/17 07/02/17 07/02/17 16:40 17:32 18:36 WBC RBC Hgb Hct MCV MCH MCHC RDW Plt Count MPV Neut % (Auto) Lymph % (Auto) [place] % (Auto) Eos % (Auto) Baso % (Auto) Neut # Lymph # [place] # Eos # Baso # PT INR APTT Puncture Site Rb Rr pCO2 64 H 61 H pO2 88 140 H HCO3 25.6 25.4 ABG pH 7.27 L 7.28 L ABG Total CO2 31.4 H 30.6 H ABG O2 Saturation 96.9 99.3 H ABG Base Excess 0.9 0.5 Luis Carlos Test Na Pos ABG Potassium 4.1 4.3 VBG pH VBG pCO2 VBG HCO3 VBG Total CO2 VBG O2 Sat (Calc) VBG Base Excess VBG Potassium A-a O2 Difference 60.0 69.0 Respiratory Index 0.7 0.5 Glucose 60 L 53 L Lactate 0.5 L 0.6 L Liter Flow 3.0 FiO2 32.0 40.0 Inspiratory BiPAP 12 Expiratory BiPAP 6 Crit Value Called To Crit Value Called By Crit Value Read Back Blood Gas Notified Time Sodium 139.0 136.0 Potassium Chloride 108.0 H 108.0 H Carbon Dioxide Anion Gap BUN Creatinine Est GFR ( Amer) Est GFR (Non-Af Amer) POC Glucose (mg/dL) 110 Random Glucose Hemoglobin A1c Calcium Magnesium Total Bilirubin AST ALT Alkaline Phosphatase Total Creatine Kinase CK-MB (Mass) Troponin I Troponin I, Quant NT-Pro-B Natriuret Pep Total Protein Albumin Globulin Albumin/Globulin Ratio TSH 3rd Generation Arterial Blood Potassium 4.1 4.3 Venous Blood Potassium Urine Color Urine Clarity Urine pH Ur Specific [place] Urine Protein Urine Glucose (UA) Urine Ketones Urine Blood Urine Nitrate Urine Bilirubin Urine Urobilinogen Ur Leukocyte Esterase Urine WBC (Auto) Urine RBC (Auto) Urine Bacteria Hyaline Casts Ur Random Creatinine U Random Total Protein 07/02/17 07/02/17 07/02/17 18:55 20:01 21:12 WBC RBC Hgb Hct MCV MCH MCHC RDW Plt Count MPV Neut % (Auto) Lymph % (Auto) [place] % (Auto) Eos % (Auto) Baso % (Auto) Neut # Lymph # [place] # Eos # Baso # PT INR APTT Puncture Site pCO2 pO2 HCO3 ABG pH ABG Total CO2 ABG O2 Saturation ABG Base Excess [place] Test ABG Potassium VBG pH VBG pCO2 VBG HCO3 VBG Total CO2 VBG O2 Sat (Calc) VBG Base Excess VBG Potassium A-a O2 Difference Respiratory Index Glucose Lactate Liter Flow FiO2 Inspiratory BiPAP Expiratory BiPAP Crit Value Called To Crit Value Called By Crit Value Read Back Blood Gas Notified Time Sodium Potassium Chloride Carbon Dioxide Anion Gap BUN Creatinine Est GFR ( Amer) Est GFR (Non-Af Amer) POC Glucose (mg/dL) 47 L 92 Random Glucose Hemoglobin A1c Calcium Magnesium Total Bilirubin AST ALT Alkaline Phosphatase Total Creatine Kinase CK-MB (Mass) Troponin I Troponin I, Quant NT-Pro-B Natriuret Pep Total Protein Albumin Globulin Albumin/Globulin Ratio TSH 3rd Generation Arterial Blood Potassium Venous Blood Potassium Urine Color Yellow Urine Clarity Clear Urine pH 5.0 Ur Specific [place] 1.011 Urine Protein 3+ H Urine Glucose (UA) Normal Urine Ketones Negative Urine Blood 1+ H Urine Nitrate Negative Urine Bilirubin Negative Urine Urobilinogen Normal Ur Leukocyte Esterase Neg Urine WBC (Auto) < 1 Urine RBC (Auto) < 1 Urine Bacteria Rare Hyaline Casts 0-2 Ur Random Creatinine U Random Total Protein 07/02/17 07/02/17 07/02/17 21:20 21:27 22:29 WBC RBC Hgb Hct MCV MCH MCHC RDW Plt Count MPV Neut % (Auto) Lymph % (Auto) [place] % (Auto) Eos % (Auto) Baso % (Auto) Neut # Lymph # [place] # Eos # Baso # PT INR APTT Puncture Site pCO2 pO2 HCO3 ABG pH ABG Total CO2 ABG O2 Saturation ABG Base Excess [place] Test ABG Potassium VBG pH VBG pCO2 VBG HCO3 VBG Total CO2 VBG O2 Sat (Calc) VBG Base Excess VBG Potassium A-a O2 Difference Respiratory Index Glucose Lactate Liter Flow FiO2 Inspiratory BiPAP Expiratory BiPAP Crit Value Called To Crit Value Called By Crit Value Read Back Blood Gas Notified Time Sodium Potassium Chloride Carbon Dioxide Anion Gap BUN Creatinine Est GFR ( Amer) Est GFR (Non-Af Amer) POC Glucose (mg/dL) 48 L 49 L 105 Random Glucose Hemoglobin A1c Calcium Magnesium Total Bilirubin AST ALT Alkaline Phosphatase Total Creatine Kinase CK-MB (Mass) Troponin I Troponin I, Quant NT-Pro-B Natriuret Pep Total Protein Albumin Globulin Albumin/Globulin Ratio TSH 3rd Generation Arterial Blood Potassium Venous Blood Potassium Urine Color Urine Clarity Urine pH Ur Specific [place] Urine Protein Urine Glucose (UA) Urine Ketones Urine Blood Urine Nitrate Urine Bilirubin Urine Urobilinogen Ur Leukocyte Esterase Urine WBC (Auto) Urine RBC (Auto) Urine Bacteria Hyaline Casts Ur Random Creatinine U Random Total Protein 07/02/17 07/02/17 07/02/17 22:57 23:22 23:22 WBC RBC Hgb Hct MCV MCH MCHC RDW Plt Count MPV Neut % (Auto) Lymph % (Auto) [place] % (Auto) Eos % (Auto) Baso % (Auto) Neut # Lymph # [place] # Eos # Baso # PT INR APTT Puncture Site pCO2 pO2 27 L HCO3 ABG pH ABG Total CO2 ABG O2 Saturation ABG Base Excess [place] Test ABG Potassium VBG pH 7.29 L VBG pCO2 58 VBG HCO3 23.5 VBG Total CO2 29.7 H VBG O2 Sat (Calc) 58.3 VBG Base Excess 0.1 VBG Potassium 4.1 A-a O2 Difference Respiratory Index Glucose > 750 H* D Lactate 1.0 Liter Flow FiO2 Inspiratory BiPAP Expiratory BiPAP Crit Value Called To Richard ipnto icu Crit Value Called By Kathleen Crit Value Read Back N Blood Gas Notified Time 2308 Sodium 129.0 L Potassium Chloride 92.0 L Carbon Dioxide Anion Gap BUN Creatinine Est GFR ( Amer) Est GFR (Non-Af Amer) POC Glucose (mg/dL) Random Glucose Hemoglobin A1c 6.8 H Calcium Magnesium Total Bilirubin AST ALT Alkaline Phosphatase Total Creatine Kinase 131 CK-MB (Mass) 3.66 H Troponin I Troponin I, Quant 0.1250 H* NT-Pro-B Natriuret Pep Total Protein Albumin Globulin Albumin/Globulin Ratio TSH 3rd Generation Arterial Blood Potassium Venous Blood Potassium 4.1 Urine Color Urine Clarity Urine pH Ur Specific [place] Urine Protein Urine Glucose (UA) Urine Ketones Urine Blood Urine Nitrate Urine Bilirubin Urine Urobilinogen Ur Leukocyte Esterase Urine WBC (Auto) Urine RBC (Auto) Urine Bacteria Hyaline Casts Ur Random Creatinine U Random Total Protein 07/02/17 07/02/17 07/02/17 23:23 23:23 23:42 WBC RBC Hgb Hct MCV MCH MCHC RDW Plt Count MPV Neut % (Auto) Lymph % (Auto) [place] % (Auto) Eos % (Auto) Baso % (Auto) Neut # Lymph # [place] # Eos # Baso # PT INR APTT Puncture Site pCO2 pO2 HCO3 ABG pH ABG Total CO2 ABG O2 Saturation ABG Base Excess [place] Test ABG Potassium VBG pH VBG pCO2 VBG HCO3 VBG Total CO2 VBG O2 Sat (Calc) VBG Base Excess VBG Potassium A-a O2 Difference Respiratory Index Glucose Lactate Liter Flow FiO2 Inspiratory BiPAP Expiratory BiPAP Crit Value Called To Crit Value Called By Crit Value Read Back Blood Gas Notified Time Sodium Potassium Chloride Carbon Dioxide Anion Gap BUN Creatinine Est GFR ( Amer) Est GFR (Non-Af Amer) POC Glucose (mg/dL) 75 Random Glucose Hemoglobin A1c Calcium Magnesium Total Bilirubin AST ALT Alkaline Phosphatase Total Creatine Kinase CK-MB (Mass) Troponin I Troponin I, Quant NT-Pro-B Natriuret Pep Total Protein Albumin Globulin Albumin/Globulin Ratio TSH 3rd Generation Arterial Blood Potassium Venous Blood Potassium Urine Color Urine Clarity Urine pH Ur Specific [place] Urine Protein Urine Glucose (UA) Urine Ketones Urine Blood Urine Nitrate Urine Bilirubin Urine Urobilinogen Ur Leukocyte Esterase Urine WBC (Auto) Urine RBC (Auto) Urine Bacteria Hyaline Casts Ur Random Creatinine 118.6 U Random Total Protein Cancelled 434.0 H 07/03/17 07/03/17 07/03/17 02:17 04:18 06:04 WBC RBC Hgb Hct MCV MCH MCHC RDW Plt Count MPV Neut % (Auto) Lymph % (Auto) [place] % (Auto) Eos % (Auto) Baso % (Auto) Neut # Lymph # [place] # Eos # Baso # PT INR APTT Puncture Site pCO2 pO2 HCO3 ABG pH ABG Total CO2 ABG O2 Saturation ABG Base Excess [place] Test ABG Potassium VBG pH VBG pCO2 VBG HCO3 VBG Total CO2 VBG O2 Sat (Calc) VBG Base Excess VBG Potassium A-a O2 Difference Respiratory Index Glucose Lactate Liter Flow FiO2 Inspiratory BiPAP Expiratory BiPAP Crit Value Called To Crit Value Called By Crit Value Read Back Blood Gas Notified Time Sodium Potassium Chloride Carbon Dioxide Anion Gap BUN Creatinine Est GFR ( Amer) Est GFR (Non-Af Amer) POC Glucose (mg/dL) 89 123 H Random Glucose Hemoglobin A1c Calcium Magnesium Total Bilirubin AST ALT Alkaline Phosphatase Total Creatine Kinase 107 CK-MB (Mass) 3.76 H Troponin I Troponin I, Quant 0.1030 NT-Pro-B Natriuret Pep Total Protein Albumin Globulin Albumin/Globulin Ratio TSH 3rd Generation Arterial Blood Potassium Venous Blood Potassium Urine Color Urine Clarity Urine pH Ur Specific [place] Urine Protein Urine Glucose (UA) Urine Ketones Urine Blood Urine Nitrate Urine Bilirubin Urine Urobilinogen Ur Leukocyte Esterase Urine WBC (Auto) Urine RBC (Auto) Urine Bacteria Hyaline Casts Ur Random Creatinine U Random Total Protein 07/03/17 07/03/17 07/03/17 06:04 06:04 06:17 WBC 10.3 RBC 4.09 L Hgb 11.3 L Hct 35.8 MCV 87.6 MCH 27.6 MCHC 31.5 L RDW 18.3 H Plt Count 246 MPV 8.4 Neut % (Auto) 92.3 H Lymph % (Auto) 5.8 L [place] % (Auto) 1.5 Eos % (Auto) 0.1 Baso % (Auto) 0.3 Neut # 9.5 H Lymph # 0.6 L [place] # 0.2 Eos # 0.0 Baso # 0.0 PT INR APTT Puncture Site pCO2 pO2 HCO3 ABG pH ABG Total CO2 ABG O2 Saturation ABG Base Excess [place] Test ABG Potassium VBG pH VBG pCO2 VBG HCO3 VBG Total CO2 VBG O2 Sat (Calc) VBG Base Excess VBG Potassium A-a O2 Difference Respiratory Index Glucose Lactate Liter Flow FiO2 Inspiratory BiPAP Expiratory BiPAP Crit Value Called To Crit Value Called By Crit Value Read Back Blood Gas Notified Time Sodium 137 Potassium 4.3 Chloride 99 Carbon Dioxide 28 Anion Gap 14 BUN 29 H Creatinine 1.8 H Est GFR ( Amer) 46 Est GFR (Non-Af Amer) 38 POC Glucose (mg/dL) 131 H Random Glucose 121 H Hemoglobin A1c Calcium 8.6 Magnesium 2.1 Total Bilirubin 0.6 AST 33 ALT 70 Alkaline Phosphatase 95 Total Creatine Kinase CK-MB (Mass) Troponin I Troponin I, Quant NT-Pro-B Natriuret Pep Total Protein 7.6 Albumin 3.3 L Globulin 4.2 H Albumin/Globulin Ratio 0.8 L TSH 3rd Generation 0.65 Arterial Blood Potassium Venous Blood Potassium Urine Color Urine Clarity Urine pH Ur Specific [place] Urine Protein Urine Glucose (UA) Urine Ketones Urine Blood Urine Nitrate Urine Bilirubin Urine Urobilinogen Ur Leukocyte Esterase Urine WBC (Auto) Urine RBC (Auto) Urine Bacteria Hyaline Casts Ur Random Creatinine U Random Total Protein
--- NOTE | 2017-07-03 08:03 | CP.PCM.CON ---
Addendum entered and electronically signed by Maurilio Lr DO 07/03/17 14 :35: Mildly Elevated Troponin 2nd ZOFIA elevated likely secondarily due to CHF exacerbation. No ST segment changes appreciated in contiguous leads. 3rd decreased EKG showed occasional PVCs with bundle branch blocks. 2nd EKG rhythm was sinus rhythm Cont to monitor Original Note: <Maurilio Lr - Last Filed: 07/03/17 13:29> History of Present Illness - History of Present Illness History of Present Illness: Cardiology Consult Note- Dr. Butler's service Information provided by patient's : Leigha العراقي. She can be reached at [phone] CC: Dyspnea and increased leg swelling HPI: 67 year old male with past medical history significant for Diabetes, CAD, CABG, Hypercholesterolemia, and TIA presents after a hypoglycemic event at home earlier. Per , patient recently returned from [facility] in April; but has been jet-lagged since then. reported that patient has been taking more than the needed antihyperglycemic medications without necessarily correlating with glucometer readings. Patient had a brief period of altered mentation but then became more alert later on. also concerned because patient's legs have been swelling over the past couple of weeks. An ROS could not be obtained because of patient's somnolence. 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 Allergies- NKDA Review of Systems - Review of Systems Systems not reviewed;Unavailable: Other Review of Systems: could not be obtained due to somnolence Past Patient History - Infectious Disease Hx of Infectious Diseases: None - Past Medical History & Family History Past Medical History?: Yes - Past Social History Smoking Status: Never Smoked - CARDIAC Hx Cardiac Disorders: Yes Hx Congestive Heart Failure: Yes Hx Hypercholesterolemia: Yes Hx Hypertension: Yes - PULMONARY Hx Respiratory Disorders: No - NEUROLOGICAL Other/Comment: stroke 2012 - HEENT Hx HEENT Problems: No - RENAL Hx Chronic Kidney Disease: Yes Other/Comment: CRI - ENDOCRINE/METABOLIC Hx Diabetes Mellitus Type 2: Yes - HEMATOLOGICAL/ONCOLOGICAL Hx Blood Disorders: No - INTEGUMENTARY Hx Dermatological Problems: No - MUSCULOSKELETAL/RHEUMATOLOGICAL Hx Musculoskeletal Disorders: No Hx Falls: Yes - GASTROINTESTINAL Hx Gastrointestinal Disorders: No - GENITOURINARY/GYNECOLOGICAL Hx Genitourinary Disorders: No - PSYCHIATRIC Hx Substance Use: No - SURGICAL HISTORY Other/Comment: triple by pass 2006 - ANESTHESIA Hx Anesthesia: Yes Meds Allergies/Adverse Reactions: Allergies Allergy/AdvReac Type Severity Reaction Status Date / Time No Known Allergies Allergy Verified 07/02/17 14:39 - Medications Medications: Current Medications Allopurinol (Zyloprim) 100 mg PO DAILY [facility] Furosemide (Lasix) 40 mg IVP Q12 [facility] Heparin Sodium (Porcine) (Heparin) 5,000 units SC Q12 [facility] Hydralazine HCl (Apresoline) 10 mg IVP Q6H [facility] Last Admin: 07/03/17 05:50 Dose: 10 mg Dextrose (Dextrose 10% In Water) 1,000 mls @ 100 mls/hr IV .Q10H [facility] Last Admin: 07/03/17 03:00 Dose: 100 mls/hr Insulin Human Regular (Novolin R) 0 unit SC ACHS [facility] PRN Reason: Protocol Metoprolol Tartrate (Lopressor) 25 mg PO BID [facility] Pantoprazole Sodium (Protonix Ec Tab) 40 mg PO DAILY [facility] Physical Exam - Constitutional Appears: Non-toxic, No Acute Distress - Head Exam Head Exam: ATRAUMATIC - Eye Exam Eye Exam: EOMI, Normal appearance Pupil Exam: PERRL - ENT Exam ENT Exam: Mucous Membranes Moist - Respiratory Exam Respiratory Exam: NORMAL BREATHING PATTERN - Cardiovascular Exam Cardiovascular Exam: JVD, +S1, +S2 - GI/Abdominal Exam GI & Abdominal Exam: Soft - Extremities Exam Extremities exam: Positive for: full ROM, pedal edema - Psychiatric Exam Psychiatric exam: Flat Affect - Skin Skin Exam: Dry, Normal Color, Warm Results - Vital Signs Recent Vital Signs: Last Vital Signs Temp 97.6 F 07/03/17 01:00 Pulse 86 07/03/17 08:02 Resp 22 07/03/17 08:02 BP 141/89 07/03/17 08:02 Pulse Ox 98 07/03/17 08:02 - Labs Result Diagrams: 07/03/17 06:04 07/03/17 06:04 Labs: Laboratory Results - last 24 hr 10/12/17 10/12/17 10/12/17 15:14 15:14 15:14 WBC 11.0 H RBC 4.19 L Hgb 11.5 L Hct 36.4 MCV 86.8 MCH 27.5 MCHC 31.7 L RDW 18.0 H Plt Count 249 MPV 8.4 Neut % (Auto) 80.8 H Lymph % (Auto) 13.2 L Ford % (Auto) 4.7 Eos % (Auto) 1.0 Baso % (Auto) 0.3 Neut # 8.9 H Lymph # 1.5 Ford # 0.5 Eos # 0.1 Baso # 0.0 PT 12.4 H INR 1.1 APTT 34 Puncture Site pCO2 pO2 HCO3 ABG pH ABG Total CO2 ABG O2 Saturation ABG Base Excess Luis Carlos Test ABG Potassium VBG pH VBG pCO2 VBG HCO3 VBG Total CO2 VBG O2 Sat (Calc) VBG Base Excess VBG Potassium A-a O2 Difference Respiratory Index Glucose Lactate Liter Flow FiO2 Inspiratory BiPAP Expiratory BiPAP Crit Value Called To Crit Value Called By Crit Value Read Back Blood Gas Notified Time Sodium 135 Potassium 4.2 Chloride 99 Carbon Dioxide 28 Anion Gap 12 BUN 33 H Creatinine 1.9 H Est GFR ( Amer) 43 Est GFR (Non-Af Amer) 36 POC Glucose (mg/dL) Random Glucose 93 Hemoglobin A1c Calcium 8.3 L Magnesium 2.0 Total Bilirubin 0.6 AST 46 ALT 72 Alkaline Phosphatase 108 Total Creatine Kinase CK-MB (Mass) Troponin I 0.1100 Troponin I, Quant NT-Pro-B Natriuret Pep 6460 H Total Protein 7.6 Albumin 3.5 Globulin 4.1 H Albumin/Globulin Ratio 0.9 L Vitamin B12 TSH 3rd Generation Arterial Blood Potassium Venous Blood Potassium Urine Color Urine Clarity Urine pH Ur Specific [place] Urine Protein Urine Glucose (UA) Urine Ketones Urine Blood Urine Nitrate Urine Bilirubin Urine Urobilinogen Ur Leukocyte Esterase Urine WBC (Auto) Urine RBC (Auto) Urine Bacteria Hyaline Casts Ur Random Creatinine U Random Total Protein 07/02/17 07/02/17 07/02/17 16:40 17:32 18:36 WBC RBC Hgb Hct MCV MCH MCHC RDW Plt Count MPV Neut % (Auto) Lymph % (Auto) Ford % (Auto) Eos % (Auto) Baso % (Auto) Neut # Lymph # Ford # Eos # Baso # PT INR APTT Puncture Site Rb Rr pCO2 64 H 61 H pO2 88 140 H HCO3 25.6 25.4 ABG pH 7.27 L 7.28 L ABG Total CO2 31.4 H 30.6 H ABG O2 Saturation 96.9 99.3 H ABG Base Excess 0.9 0.5 Luis Carlos Test Na Pos ABG Potassium 4.1 4.3 VBG pH VBG pCO2 VBG HCO3 VBG Total CO2 VBG O2 Sat (Calc) VBG Base Excess VBG Potassium A-a O2 Difference 60.0 69.0 Respiratory Index 0.7 0.5 Glucose 60 L 53 L Lactate 0.5 L 0.6 L Liter Flow 3.0 FiO2 32.0 40.0 Inspiratory BiPAP 12 Expiratory BiPAP 6 Crit Value Called To Crit Value Called By Crit Value Read Back Blood Gas Notified Time Sodium 139.0 136.0 Potassium Chloride 108.0 H 108.0 H Carbon Dioxide Anion Gap BUN Creatinine Est GFR ( Amer) Est GFR (Non-Af Amer) POC Glucose (mg/dL) 110 Random Glucose Hemoglobin A1c Calcium Magnesium Total Bilirubin AST ALT Alkaline Phosphatase Total Creatine Kinase CK-MB (Mass) Troponin I Troponin I, Quant NT-Pro-B Natriuret Pep Total Protein Albumin Globulin Albumin/Globulin Ratio Vitamin B12 TSH 3rd Generation Arterial Blood Potassium 4.1 4.3 Venous Blood Potassium Urine Color Urine Clarity Urine pH Ur Specific [place] Urine Protein Urine Glucose (UA) Urine Ketones Urine Blood Urine Nitrate Urine Bilirubin Urine Urobilinogen Ur Leukocyte Esterase Urine WBC (Auto) Urine RBC (Auto) Urine Bacteria Hyaline Casts Ur Random Creatinine U Random Total Protein 07/02/17 07/02/17 07/02/17 18:55 20:01 21:12 WBC RBC Hgb Hct MCV MCH MCHC RDW Plt Count MPV Neut % (Auto) Lymph % (Auto) Ford % (Auto) Eos % (Auto) Baso % (Auto) Neut # Lymph # Ford # Eos # Baso # PT INR APTT Puncture Site pCO2 pO2 HCO3 ABG pH ABG Total CO2 ABG O2 Saturation ABG Base Excess Luis Carlos Test ABG Potassium VBG pH VBG pCO2 VBG HCO3 VBG Total CO2 VBG O2 Sat (Calc) VBG Base Excess VBG Potassium A-a O2 Difference Respiratory Index Glucose Lactate Liter Flow FiO2 Inspiratory BiPAP Expiratory BiPAP Crit Value Called To Crit Value Called By Crit Value Read Back Blood Gas Notified Time Sodium Potassium Chloride Carbon Dioxide Anion Gap BUN Creatinine Est GFR ( Amer) Est GFR (Non-Af Amer) POC Glucose (mg/dL) 47 L 92 Random Glucose Hemoglobin A1c Calcium Magnesium Total Bilirubin AST ALT Alkaline Phosphatase Total Creatine Kinase CK-MB (Mass) Troponin I Troponin I, Quant NT-Pro-B Natriuret Pep Total Protein Albumin Globulin Albumin/Globulin Ratio Vitamin B12 TSH 3rd Generation Arterial Blood Potassium Venous Blood Potassium Urine Color Yellow Urine Clarity Clear Urine pH 5.0 Ur Specific [place] 1.011 Urine Protein 3+ H Urine Glucose (UA) Normal Urine Ketones Negative Urine Blood 1+ H Urine Nitrate Negative Urine Bilirubin Negative Urine Urobilinogen Normal Ur Leukocyte Esterase Neg Urine WBC (Auto) < 1 Urine RBC (Auto) < 1 Urine Bacteria Rare Hyaline Casts 0-2 Ur Random Creatinine U Random Total Protein 07/02/17 07/02/17 07/02/17 21:20 21:27 22:29 WBC RBC Hgb Hct MCV MCH MCHC RDW Plt Count MPV Neut % (Auto) Lymph % (Auto) Ford % (Auto) Eos % (Auto) Baso % (Auto) Neut # Lymph # Ford # Eos # Baso # PT INR APTT Puncture Site pCO2 pO2 HCO3 ABG pH ABG Total CO2 ABG O2 Saturation ABG Base Excess Luis Carlos Test ABG Potassium VBG pH VBG pCO2 VBG HCO3 VBG Total CO2 VBG O2 Sat (Calc) VBG Base Excess VBG Potassium A-a O2 Difference Respiratory Index Glucose Lactate Liter Flow FiO2 Inspiratory BiPAP Expiratory BiPAP Crit Value Called To Crit Value Called By Crit Value Read Back Blood Gas Notified Time Sodium Potassium Chloride Carbon Dioxide Anion Gap BUN Creatinine Est GFR ( Amer) Est GFR (Non-Af Amer) POC Glucose (mg/dL) 48 L 49 L 105 Random Glucose Hemoglobin A1c Calcium Magnesium Total Bilirubin AST ALT Alkaline Phosphatase Total Creatine Kinase CK-MB (Mass) Troponin I Troponin I, Quant NT-Pro-B Natriuret Pep Total Protein Albumin Globulin Albumin/Globulin Ratio Vitamin B12 TSH 3rd Generation Arterial Blood Potassium Venous Blood Potassium Urine Color Urine Clarity Urine pH Ur Specific [place] Urine Protein Urine Glucose (UA) Urine Ketones Urine Blood Urine Nitrate Urine Bilirubin Urine Urobilinogen Ur Leukocyte Esterase Urine WBC (Auto) Urine RBC (Auto) Urine Bacteria Hyaline Casts Ur Random Creatinine U Random Total Protein 07/02/17 07/02/17 07/02/17 22:57 23:22 23:22 WBC RBC Hgb Hct MCV MCH MCHC RDW Plt Count MPV Neut % (Auto) Lymph % (Auto) Ford % (Auto) Eos % (Auto) Baso % (Auto) Neut # Lymph # Ford # Eos # Baso # PT INR APTT Puncture Site pCO2 pO2 27 L HCO3 ABG pH ABG Total CO2 ABG O2 Saturation ABG Base Excess Luis Carlos Test ABG Potassium VBG pH 7.29 L VBG pCO2 58 VBG HCO3 23.5 VBG Total CO2 29.7 H VBG O2 Sat (Calc) 58.3 VBG Base Excess 0.1 VBG Potassium 4.1 A-a O2 Difference Respiratory Index Glucose > 750 H* D Lactate 1.0 Liter Flow FiO2 Inspiratory BiPAP Expiratory BiPAP Crit Value Called To Richard pinto icu Crit Value Called By Kathleen Crit Value Read Back N Blood Gas Notified Time 2308 Sodium 129.0 L Potassium Chloride 92.0 L Carbon Dioxide Anion Gap BUN Creatinine Est GFR ( Amer) Est GFR (Non-Af Amer) POC Glucose (mg/dL) Random Glucose Hemoglobin A1c 6.8 H Calcium Magnesium Total Bilirubin AST ALT Alkaline Phosphatase Total Creatine Kinase 131 CK-MB (Mass) 3.66 H Troponin I Troponin I, Quant 0.1250 H* NT-Pro-B Natriuret Pep Total Protein Albumin Globulin Albumin/Globulin Ratio Vitamin B12 TSH 3rd Generation Arterial Blood Potassium Venous Blood Potassium 4.1 Urine Color Urine Clarity Urine pH Ur Specific [place] Urine Protein Urine Glucose (UA) Urine Ketones Urine Blood Urine Nitrate Urine Bilirubin Urine Urobilinogen Ur Leukocyte Esterase Urine WBC (Auto) Urine RBC (Auto) Urine Bacteria Hyaline Casts Ur Random Creatinine U Random Total Protein 07/02/17 07/02/17 07/02/17 23:23 23:23 23:42 WBC RBC Hgb Hct MCV MCH MCHC RDW Plt Count MPV Neut % (Auto) Lymph % (Auto) Ford % (Auto) Eos % (Auto) Baso % (Auto) Neut # Lymph # Ford # Eos # Baso # PT INR APTT Puncture Site pCO2 pO2 HCO3 ABG pH ABG Total CO2 ABG O2 Saturation ABG Base Excess Luis Carlos Test ABG Potassium VBG pH VBG pCO2 VBG HCO3 VBG Total CO2 VBG O2 Sat (Calc) VBG Base Excess VBG Potassium A-a O2 Difference Respiratory Index Glucose Lactate Liter Flow FiO2 Inspiratory BiPAP Expiratory BiPAP Crit Value Called To Crit Value Called By Crit Value Read Back Blood Gas Notified Time Sodium Potassium Chloride Carbon Dioxide Anion Gap BUN Creatinine Est GFR ( Amer) Est GFR (Non-Af Amer) POC Glucose (mg/dL) 75 Random Glucose Hemoglobin A1c Calcium Magnesium Total Bilirubin AST ALT Alkaline Phosphatase Total Creatine Kinase CK-MB (Mass) Troponin I Troponin I, Quant NT-Pro-B Natriuret Pep Total Protein Albumin Globulin Albumin/Globulin Ratio Vitamin B12 TSH 3rd Generation Arterial Blood Potassium Venous Blood Potassium Urine Color Urine Clarity Urine pH Ur Specific [place] Urine Protein Urine Glucose (UA) Urine Ketones Urine Blood Urine Nitrate Urine Bilirubin Urine Urobilinogen Ur Leukocyte Esterase Urine WBC (Auto) Urine RBC (Auto) Urine Bacteria Hyaline Casts Ur Random Creatinine 118.6 U Random Total Protein Cancelled 434.0 H 07/03/17 07/03/17 07/03/17 02:17 04:18 06:04 WBC RBC Hgb Hct MCV MCH MCHC RDW Plt Count MPV Neut % (Auto) Lymph % (Auto) Ford % (Auto) Eos % (Auto) Baso % (Auto) Neut # Lymph # Ford # Eos # Baso # PT INR APTT Puncture Site pCO2 pO2 HCO3 ABG pH ABG Total CO2 ABG O2 Saturation ABG Base Excess Luis Carlos Test ABG Potassium VBG pH VBG pCO2 VBG HCO3 VBG Total CO2 VBG O2 Sat (Calc) VBG Base Excess VBG Potassium A-a O2 Difference Respiratory Index Glucose Lactate Liter Flow FiO2 Inspiratory BiPAP Expiratory BiPAP Crit Value Called To Crit Value Called By Crit Value Read Back Blood Gas Notified Time Sodium Potassium Chloride Carbon Dioxide Anion Gap BUN Creatinine Est GFR ( Amer) Est GFR (Non-Af Amer) POC Glucose (mg/dL) 89 123 H Random Glucose Hemoglobin A1c Calcium Magnesium Total Bilirubin AST ALT Alkaline Phosphatase Total Creatine Kinase 107 CK-MB (Mass) 3.76 H Troponin I Troponin I, Quant 0.1030 NT-Pro-B Natriuret Pep Total Protein Albumin Globulin Albumin/Globulin Ratio Vitamin B12 TSH 3rd Generation Arterial Blood Potassium Venous Blood Potassium Urine Color Urine Clarity Urine pH Ur Specific [place] Urine Protein Urine Glucose (UA) Urine Ketones Urine Blood Urine Nitrate Urine Bilirubin Urine Urobilinogen Ur Leukocyte Esterase Urine WBC (Auto) Urine RBC (Auto) Urine Bacteria Hyaline Casts Ur Random Creatinine U Random Total Protein 07/03/17 07/03/17 07/03/17 06:04 06:04 06:17 WBC 10.3 RBC 4.09 L Hgb 11.3 L Hct 35.8 MCV 87.6 MCH 27.6 MCHC 31.5 L RDW 18.3 H Plt Count 246 MPV 8.4 Neut % (Auto) 92.3 H Lymph % (Auto) 5.8 L Ford % (Auto) 1.5 Eos % (Auto) 0.1 Baso % (Auto) 0.3 Neut # 9.5 H Lymph # 0.6 L Ford # 0.2 Eos # 0.0 Baso # 0.0 PT INR APTT Puncture Site pCO2 pO2 HCO3 ABG pH ABG Total CO2 ABG O2 Saturation ABG Base Excess Luis Carlos Test ABG Potassium VBG pH VBG pCO2 VBG HCO3 VBG Total CO2 VBG O2 Sat (Calc) VBG Base Excess VBG Potassium A-a O2 Difference Respiratory Index Glucose Lactate Liter Flow FiO2 Inspiratory BiPAP Expiratory BiPAP Crit Value Called To Crit Value Called By Crit Value Read Back Blood Gas Notified Time Sodium 137 Potassium 4.3 Chloride 99 Carbon Dioxide 28 Anion Gap 14 BUN 29 H Creatinine 1.8 H Est GFR ( Amer) 46 Est GFR (Non-Af Amer) 38 POC Glucose (mg/dL) 131 H Random Glucose 121 H Hemoglobin A1c Calcium 8.6 Magnesium 2.1 Total Bilirubin 0.6 AST 33 ALT 70 Alkaline Phosphatase 95 Total Creatine Kinase CK-MB (Mass) Troponin I Troponin I, Quant NT-Pro-B Natriuret Pep Total Protein 7.6 Albumin 3.3 L Globulin 4.2 H Albumin/Globulin Ratio 0.8 L Vitamin B12 478 TSH 3rd Generation 0.65 Arterial Blood Potassium Venous Blood Potassium Urine Color Urine Clarity Urine pH Ur Specific [place] Urine Protein Urine Glucose (UA) Urine Ketones Urine Blood Urine Nitrate Urine Bilirubin Urine Urobilinogen Ur Leukocyte Esterase Urine WBC (Auto) Urine RBC (Auto) Urine Bacteria Hyaline Casts Ur Random Creatinine U Random Total Protein 07/03/17 07:42 WBC RBC Hgb Hct MCV MCH MCHC RDW Plt Count MPV Neut % (Auto) Lymph % (Auto) Ford % (Auto) Eos % (Auto) Baso % (Auto) Neut # Lymph # Ford # Eos # Baso # PT INR APTT Puncture Site pCO2 pO2 HCO3 ABG pH ABG Total CO2 ABG O2 Saturation ABG Base Excess Luis Carlos Test ABG Potassium VBG pH VBG pCO2 VBG HCO3 VBG Total CO2 VBG O2 Sat (Calc) VBG Base Excess VBG Potassium A-a O2 Difference Respiratory Index Glucose Lactate Liter Flow FiO2 Inspiratory BiPAP Expiratory BiPAP Crit Value Called To Crit Value Called By Crit Value Read Back Blood Gas Notified Time Sodium Potassium Chloride Carbon Dioxide Anion Gap BUN Creatinine Est GFR ( Amer) Est GFR (Non-Af Amer) POC Glucose (mg/dL) 238 H Random Glucose Hemoglobin A1c Calcium Magnesium Total Bilirubin AST ALT Alkaline Phosphatase Total Creatine Kinase CK-MB (Mass) Troponin I Troponin I, Quant NT-Pro-B Natriuret Pep Total Protein Albumin Globulin Albumin/Globulin Ratio Vitamin B12 TSH 3rd Generation Arterial Blood Potassium Venous Blood Potassium Urine Color Urine Clarity Urine pH Ur Specific [place] Urine Protein Urine Glucose (UA) Urine Ketones Urine Blood Urine Nitrate Urine Bilirubin Urine Urobilinogen Ur Leukocyte Esterase Urine WBC (Auto) Urine RBC (Auto) Urine Bacteria Hyaline Casts Ur Random Creatinine U Random Total Protein Assessment & Plan (1) CHF exacerbation Assessment and Plan: CXR- Interstitial prominence may reflect inection or edema; Small b/l pleural effusions. Mild biapical pleural thickening; cardiomegaly, ectatic aorta. On Lasix IV BID F/U ECHO. BNP 6460 Monitor Ins and outs and measure daily weights Status: Acute (2) Hypertension Assessment and Plan: On Metoprolol and Hydralazine Elevated overnight. Cont to monitor. Avoid IVF Status: Chronic (3) History of coronary artery bypass graft Assessment and Plan: Started Crestor 10 mg PO HS On Metoprolol BID Diet and exercise strongly encouraged Status: Chronic (4) Hypoglycemia Assessment and Plan: Likely the source of altered mentation Patient will need to be counseled on medication administration Parameters in place with sliding scale Status: Acute (5) History of diabetes mellitus Assessment and Plan: Accuchecks Sliding scale Hold Parameters in place A1c 6.8 Status: Chronic (6) History of TIA (transient ischemic attack) Assessment and Plan: Head CT- Refer to report Neuro on the case Cont to monitor Status: Acute (7) Hypercholesteremia Assessment and Plan: On Crestor Would benefit from diet and exercise Status: Chronic (8) Family history of cerebral aneurysm Assessment and Plan: Strong family history. Patient's counseled on the importance of testing children to rule out aneursyms. Head CT did not appear to show signs of aneurysmal disease. Neuro on case for AMS Status: Acute (9) Prophylactic measure Assessment and Plan: SCDs contraindicated due to swelling Heparin SC Q12 Pepcid 20 mg IV daily Status: Acute <Corey Butler - Last Filed: 07/03/17 23:22> Meds - Medications Medications: Current Medications Allopurinol (Zyloprim) 100 mg PO DAILY [facility] Last Admin: 07/03/17 12:13 Dose: Not Given Famotidine (Pepcid) 20 mg IVP DAILY [facility] Last Admin: 07/03/17 11:09 Dose: 20 mg Furosemide (Lasix) 40 mg IVP Q12 [facility] Last Admin: 07/03/17 21:04 Dose: 40 mg Heparin Sodium (Porcine) (Heparin) 5,000 units SC Q12 [facility] Last Admin: 07/03/17 21:04 Dose: 5,000 units Hydralazine HCl (Apresoline) 10 mg IVP Q6H [facility] Last Admin: 07/03/17 22:20 Dose: 10 mg Dextrose (Dextrose 10% In Water) 1,000 mls @ 50 mls/hr IV .Q20H [facility] Last Admin: 07/03/17 22:22 Dose: Not Given Insulin Human Regular (Novolin R) 0 unit SC ACHS [facility] PRN Reason: Protocol Last Admin: 07/03/17 17:37 Dose: Not Given Metoprolol Tartrate (Lopressor) 25 mg PO BID [facility] Last Admin: 07/03/17 18:11 Dose: Not Given Rosuvastatin Calcium (Crestor) 10 mg PO HS [facility] Last Admin: 07/03/17 21:04 Dose: 10 mg Results - Vital Signs Recent Vital Signs: Last Vital Signs Temp 97.4 F L 07/03/17 08:00 Pulse 83 07/03/17 22:18 Resp 19 07/03/17 21:02 BP 118/73 07/03/17 21:04 Pulse Ox 97 07/03/17 21:02 - Labs Result Diagrams: 07/03/17 06:04 07/03/17 06:04 Labs: Laboratory Results - last 24 hr 07/02/17 07/02/17 07/02/17 23:22 23:22 23:22 WBC RBC Hgb Hct MCV MCH MCHC RDW Plt Count MPV Neut % (Auto) Lymph % (Auto) Ford % (Auto) Eos % (Auto) Baso % (Auto) Neut # Lymph # Ford # Eos # Baso # Neutrophils % (Manual) Band Neutrophils % Lymphocytes % (Manual) Monocytes % (Manual) Platelet Estimate Large Platelets Giant Platelets Hypochromasia (manual) Poikilocytosis (manual Anisocytosis (manual) Puncture Site pCO2 pO2 HCO3 ABG pH ABG Total CO2 ABG O2 Saturation ABG Base Excess ABG Hemoglobin ABG Carboxyhemoglobin POC ABG HHb (Measured) ABG Methemoglobin Luis Carlos Test ABG Potassium A-a O2 Difference Respiratory Index Hgb O2 Saturation Glucose Lactate Liter Flow Vent Mode FiO2 Inspiratory BiPAP Expiratory BiPAP Sodium Potassium Chloride Carbon Dioxide Anion Gap BUN Creatinine Est GFR ( Amer) Est GFR (Non-Af Amer) POC Glucose (mg/dL) Random Glucose Hemoglobin A1c 6.8 H Calcium Magnesium Total Bilirubin AST ALT Alkaline Phosphatase Total Creatine Kinase 131 CK-MB (Mass) 3.66 H Troponin I, Quant 0.1250 H* Total Protein Albumin Globulin Albumin/Globulin Ratio Vitamin B12 Procalcitonin 0.22 TSH 3rd Generation Prolactin Arterial Blood Potassium Ur Random Creatinine U Random Total Protein RPR 07/02/17 07/02/17 07/02/17 23:23 23:23 23:42 WBC RBC Hgb Hct MCV MCH MCHC RDW Plt Count MPV Neut % (Auto) Lymph % (Auto) Ford % (Auto) Eos % (Auto) Baso % (Auto) Neut # Lymph # Ford # Eos # Baso # Neutrophils % (Manual) Band Neutrophils % Lymphocytes % (Manual) Monocytes % (Manual) Platelet Estimate Large Platelets Giant Platelets Hypochromasia (manual) Poikilocytosis (manual Anisocytosis (manual) Puncture Site pCO2 pO2 HCO3 ABG pH ABG Total CO2 ABG O2 Saturation ABG Base Excess ABG Hemoglobin ABG Carboxyhemoglobin POC ABG HHb (Measured) ABG Methemoglobin Luis Carlos Test ABG Potassium A-a O2 Difference Respiratory Index Hgb O2 Saturation Glucose Lactate Liter Flow Vent Mode FiO2 Inspiratory BiPAP Expiratory BiPAP Sodium Potassium Chloride Carbon Dioxide Anion Gap BUN Creatinine Est GFR ( Amer) Est GFR (Non-Af Amer) POC Glucose (mg/dL) 75 Random Glucose Hemoglobin A1c Calcium Magnesium Total Bilirubin AST ALT Alkaline Phosphatase Total Creatine Kinase CK-MB (Mass) Troponin I, Quant Total Protein Albumin Globulin Albumin/Globulin Ratio Vitamin B12 Procalcitonin TSH 3rd Generation Prolactin Arterial Blood Potassium Ur Random Creatinine 118.6 U Random Total Protein Cancelled 434.0 H RPR 07/03/17 07/03/17 07/03/17 02:17 04:18 06:04 WBC RBC Hgb Hct MCV MCH MCHC RDW Plt Count MPV Neut % (Auto) Lymph % (Auto) Ford % (Auto) Eos % (Auto) Baso % (Auto) Neut # Lymph # Ford # Eos # Baso # Neutrophils % (Manual) Band Neutrophils % Lymphocytes % (Manual) Monocytes % (Manual) Platelet Estimate Large Platelets Giant Platelets Hypochromasia (manual) Poikilocytosis (manual Anisocytosis (manual) Puncture Site pCO2 pO2 HCO3 ABG pH ABG Total CO2 ABG O2 Saturation ABG Base Excess ABG Hemoglobin ABG Carboxyhemoglobin POC ABG HHb (Measured) ABG Methemoglobin Luis Carlos Test ABG Potassium A-a O2 Difference Respiratory Index Hgb O2 Saturation Glucose Lactate Liter Flow Vent Mode FiO2 Inspiratory BiPAP Expiratory BiPAP Sodium Potassium Chloride Carbon Dioxide Anion Gap BUN Creatinine Est GFR ( Amer) Est GFR (Non-Af Amer) POC Glucose (mg/dL) 89 123 H Random Glucose Hemoglobin A1c Calcium Magnesium Total Bilirubin AST ALT Alkaline Phosphatase Total Creatine Kinase 107 CK-MB (Mass) 3.76 H Troponin I, Quant 0.1030 Total Protein Albumin Globulin Albumin/Globulin Ratio Vitamin B12 Procalcitonin TSH 3rd Generation Prolactin Arterial Blood Potassium Ur Random Creatinine U Random Total Protein RPR 07/03/17 07/03/17 07/03/17 06:04 06:04 06:17 WBC 10.3 RBC 4.09 L Hgb 11.3 L Hct 35.8 MCV 87.6 MCH 27.6 MCHC 31.5 L RDW 18.3 H Plt Count 246 MPV 8.4 Neut % (Auto) 92.3 H Lymph % (Auto) 5.8 L Ford % (Auto) 1.5 Eos % (Auto) 0.1 Baso % (Auto) 0.3 Neut # 9.5 H Lymph # 0.6 L Ford # 0.2 Eos # 0.0 Baso # 0.0 Neutrophils % (Manual) 90 H Band Neutrophils % 5 H Lymphocytes % (Manual) 4 L Monocytes % (Manual) 1 Platelet Estimate Normal Large Platelets Present Giant Platelets Present Hypochromasia (manual) Slight Poikilocytosis (manual Slight Anisocytosis (manual) Slight Puncture Site pCO2 pO2 HCO3 ABG pH ABG Total CO2 ABG O2 Saturation ABG Base Excess ABG Hemoglobin ABG Carboxyhemoglobin POC ABG HHb (Measured) ABG Methemoglobin Luis Carlos Test ABG Potassium A-a O2 Difference Respiratory Index Hgb O2 Saturation Glucose Lactate Liter Flow Vent Mode FiO2 Inspiratory BiPAP Expiratory BiPAP Sodium 137 Potassium 4.3 Chloride 99 Carbon Dioxide 28 Anion Gap 14 BUN 29 H Creatinine 1.8 H Est GFR ( Amer) 46 Est GFR (Non-Af Amer) 38 POC Glucose (mg/dL) 131 H Random Glucose 121 H Hemoglobin A1c Calcium 8.6 Magnesium 2.1 Total Bilirubin 0.6 AST 33 ALT 70 Alkaline Phosphatase 95 Total Creatine Kinase CK-MB (Mass) Troponin I, Quant Total Protein 7.6 Albumin 3.3 L Globulin 4.2 H Albumin/Globulin Ratio 0.8 L Vitamin B12 478 Procalcitonin TSH 3rd Generation 0.65 Prolactin Arterial Blood Potassium Ur Random Creatinine U Random Total Protein RPR 07/03/17 07/03/17 07/03/17 07:42 08:07 08:14 WBC RBC Hgb Hct MCV MCH MCHC RDW Plt Count MPV Neut % (Auto) Lymph % (Auto) Ford % (Auto) Eos % (Auto) Baso % (Auto) Neut # Lymph # Ford # Eos # Baso # Neutrophils % (Manual) Band Neutrophils % Lymphocytes % (Manual) Monocytes % (Manual) Platelet Estimate Large Platelets Giant Platelets Hypochromasia (manual) Poikilocytosis (manual Anisocytosis (manual) Puncture Site Rr pCO2 55 H pO2 85 HCO3 26.4 ABG pH 7.33 L ABG Total CO2 30.7 H ABG O2 Saturation 97.2 ABG Base Excess 1.9 ABG Hemoglobin ABG Carboxyhemoglobin POC ABG HHb (Measured) ABG Methemoglobin Luis Carlos Test Pos ABG Potassium 4.3 A-a O2 Difference 39.0 Respiratory Index 0.5 Hgb O2 Saturation Glucose 232 H Lactate 0.5 L Liter Flow 2.0 Vent Mode FiO2 27.0 Inspiratory BiPAP Expiratory BiPAP Sodium 135.0 Potassium Chloride 106.0 Carbon Dioxide Anion Gap BUN Creatinine Est GFR ( Amer) Est GFR (Non-Af Amer) POC Glucose (mg/dL) 238 H Random Glucose Hemoglobin A1c Calcium Magnesium Total Bilirubin AST ALT Alkaline Phosphatase Total Creatine Kinase CK-MB (Mass) Troponin I, Quant Total Protein Albumin Globulin Albumin/Globulin Ratio Vitamin B12 Procalcitonin TSH 3rd Generation Prolactin 7.1 Arterial Blood Potassium 4.3 Ur Random Creatinine U Random Total Protein RPR 07/03/17 07/03/17 07/03/17 08:14 12:15 15:23 WBC RBC Hgb Hct MCV MCH MCHC RDW Plt Count MPV Neut % (Auto) Lymph % (Auto) Ford % (Auto) Eos % (Auto) Baso % (Auto) Neut # Lymph # Ford # Eos # Baso # Neutrophils % (Manual) Band Neutrophils % Lymphocytes % (Manual) Monocytes % (Manual) Platelet Estimate Large Platelets Giant Platelets Hypochromasia (manual) Poikilocytosis (manual Anisocytosis (manual) Puncture Site pCO2 pO2 HCO3 ABG pH ABG Total CO2 ABG O2 Saturation ABG Base Excess ABG Hemoglobin ABG Carboxyhemoglobin POC ABG HHb (Measured) ABG Methemoglobin Luis Carlos Test ABG Potassium A-a O2 Difference Respiratory Index Hgb O2 Saturation Glucose Lactate Liter Flow Vent Mode FiO2 Inspiratory BiPAP Expiratory BiPAP Sodium Potassium Chloride Carbon Dioxide Anion Gap BUN Creatinine Est GFR ( Amer) Est GFR (Non-Af Amer) POC Glucose (mg/dL) 273 H Random Glucose Hemoglobin A1c Calcium Magnesium Total Bilirubin AST ALT Alkaline Phosphatase Total Creatine Kinase 105 CK-MB (Mass) 3.22 Troponin I, Quant 0.1320 H* Total Protein Albumin Globulin Albumin/Globulin Ratio Vitamin B12 Procalcitonin TSH 3rd Generation Prolactin Arterial Blood Potassium Ur Random Creatinine U Random Total Protein RPR Nonreactive 07/03/17 07/03/17 07/03/17 16:34 17:06 21:30 WBC RBC Hgb Hct MCV MCH MCHC RDW Plt Count MPV Neut % (Auto) Lymph % (Auto) Ford % (Auto) Eos % (Auto) Baso % (Auto) Neut # Lymph # Ford # Eos # Baso # Neutrophils % (Manual) Band Neutrophils % Lymphocytes % (Manual) Monocytes % (Manual) Platelet Estimate Large Platelets Giant Platelets Hypochromasia (manual) Poikilocytosis (manual Anisocytosis (manual) Puncture Site Rr pCO2 48 H pO2 96 HCO3 28.8 H ABG pH 7.41 ABG Total CO2 31.9 H ABG O2 Saturation 98.7 H ABG Base Excess 5.0 H ABG Hemoglobin 10.5 L ABG Carboxyhemoglobin 2.8 H POC ABG HHb (Measured) 1.2 ABG Methemoglobin 1.2 Luis Carlos Test Po ABG Potassium A-a O2 Difference 22.0 Respiratory Index 0.2 Hgb O2 Saturation 94.7 L Glucose Lactate Liter Flow Vent Mode Bipap FiO2 25.0 Inspiratory BiPAP 14 Expiratory BiPAP 6 Sodium Potassium Chloride Carbon Dioxide Anion Gap BUN Creatinine Est GFR ( Amer) Est GFR (Non-Af Amer) POC Glucose (mg/dL) 177 H 120 H Random Glucose Hemoglobin A1c Calcium Magnesium Total Bilirubin AST ALT Alkaline Phosphatase Total Creatine Kinase CK-MB (Mass) Troponin I, Quant Total Protein Albumin Globulin Albumin/Globulin Ratio Vitamin B12 Procalcitonin TSH 3rd Generation Prolactin Arterial Blood Potassium Ur Random Creatinine U Random Total Protein RPR Assessment & Plan - Assessment and Plan (Free Text) Assessment: Patient seen and evaluated with the medical authorization specialist Plan of care as documenetd
[2017-07-03 08:10] LABS: ABG ALLEN TEST POS; DRAW SITE RR
[2017-07-03] MEDS: (Novolin R) Insulin Human Regular 100 units/ml vial SC SCH ×3 (08:49→17:37)
[2017-07-03 08:54] LABS: TOTAL CELLS COUNTED 100
[2017-07-03 08:55] LABS: NEUTROPHIL 90 % (50-75)
[2017-07-03 08:56] LABS: LARGE PLATELETS PRESENT
[2017-07-03 09:02] LABS: GIANT PLATELETS PRESENT
[2017-07-03] MEDS ORDERED: Pantoprazole 40 mg EC Tab PO SCH (10:00)
--- NOTE | 2017-07-03 10:07 | CP.CCUPN ---
<Gwen Rodriguez E - Last Filed: 07/03/17 17:25> CCU Subjective - Physician Review Subjective (Free Text): Patient was seen and examined at bedside. Patient was very lethargic and waxing and waning. Patient's was at bedside. CCU Objective - Vital Signs / Intake & Output Vital Signs (Last 4 hours): Vital Signs Pulse Resp BP Pulse Ox 07/03/17 09:17 143/74 07/03/17 09:01 83 24 143/74 97 07/03/17 09:00 84 24 96 07/03/17 08:02 86 22 141/89 98 07/03/17 08:00 88 23 97 07/03/17 07:02 87 27 H 141/86 97 07/03/17 07:00 82 20 99 Intake and Output (Last 8hrs): Intake & Output 07/02/17 07/03/17 07/03/17 22:59 06:59 14:59 Intake Total 700 300 Output Total 800 100 Balance -100 200 Weight 206 lb Intake: Intake, IV Amount 700 300 Right Antecubital 700 300 Oral 0 0 Output: Urine 800 100 Urine, Voided 800 100 Other: # Voids Urine, Voided 1 # Bowel Movements 0 - Physical Exam Head: Positive for: Atraumatic Respiratory/Chest: Positive for: Rales. Negative for: Good Air Exchange, Accessory Muscle Use Cardiovascular: Positive for: Regular Rate and Rhythm, Normal S1, S2 Abdomen: Positive for: Distention, Normal Bowel Sounds. Negative for: Tenderness Upper Extremity: Positive for: Normal Inspection Lower Extremity: Positive for: Edema Skin: Positive for: Normal Color Psychiatric: Negative for: Alert - Medications Active Medications: Active Medications Generic Name Dose Route Start Last Admin Trade Name Claudioq PRN Reason Stop Dose Admin Allopurinol 100 mg 07/03/17 10:00 Zyloprim PO DAILY RANDOLPH Furosemide 40 mg 07/03/17 10:00 07/03/17 09:17 Lasix IVP 40 mg Q12 RANDOLPH Administration Heparin Sodium (Porcine) 5,000 units 07/03/17 10:00 07/03/17 09:19 Heparin SC 5,000 units Q12 RANDOLPH Administration Hydralazine HCl 10 mg 07/02/17 23:00 07/03/17 05:50 Apresoline IVP 10 mg Q6H RANDOLPH Administration Dextrose 1,000 mls @ 100 mls/hr 07/02/17 21:44 07/03/17 09:04 Dextrose 10% In Water IV Not Given .Q10H [facility] Insulin Human Regular 0 unit 07/03/17 07:30 07/03/17 08:49 Novolin R SC Not Given ACHS [facility] Protocol Metoprolol Tartrate 25 mg 07/03/17 10:00 Lopressor PO BID RANDOLPH Pantoprazole Sodium 40 mg 07/03/17 10:00 Protonix Ec Tab PO DAILY RANDOLPH - Patient Studies Lab Studies: Lab Studies 07/03/17 07/03/17 07/03/17 Range/Units 08:14 08:07 07:42 WBC (4.8-10.8) K/uL RBC (4.40-5.90) Mil/uL Hgb (12.0-18.0) g/dL Hct (35.0-51.0) % MCV (80.0-94.0) fL MCH (27.0-31.0) pg MCHC (33.0-37.0) g/dL RDW (11.5-14.5) % Plt Count (130-400) K/uL MPV (7.2-11.7) fL Neut % (Auto) (50.0-75.0) % Lymph % (Auto) (20.0-40.0) % [place] % (Auto) (0.0-10.0) % Eos % (Auto) (0.0-4.0) % Baso % (Auto) (0.0-2.0) % Neut # (1.8-7.0) K/uL Lymph # (1.0-4.3) K/uL [place] # (0.0-0.8) K/uL Eos # (0.0-0.7) K/uL Baso # (0.0-0.2) K/uL Neutrophils % (Manual) (50-75) % Band Neutrophils % (0-2) % Lymphocytes % (Manual) (20-40) % Monocytes % (Manual) (0-10) % Platelet Estimate (NORMAL) Large Platelets Giant Platelets Hypochromasia (manual) Poikilocytosis (manual Anisocytosis (manual) PT (9.7-12.2) SECONDS INR APTT (21-34) SECONDS Puncture Site Rr pCO2 55 H (35-45) mm/Hg pO2 85 (80-100) mm/Hg HCO3 26.4 (21-28) mmol/L ABG pH 7.33 L (7.35-7.45) ABG Total CO2 30.7 H (22-28) mmol/L ABG O2 Saturation 97.2 (95-98) % ABG Base Excess 1.9 (-2.0-3.0) mmol/L Luis Carlos Test Pos ABG Potassium 4.3 (3.6-5.2) mmol/L VBG pH (7.32-7.43) VBG pCO2 (40-60) mmHg VBG HCO3 mmol/L VBG Total CO2 (22-28) mmol/L VBG O2 Sat (Calc) (40-65) % VBG Base Excess (0.0-2.0) mmol/L VBG Potassium (3.6-5.2) mmol/L A-a O2 Difference 39.0 mm/Hg Respiratory Index 0.5 Glucose 232 H (75-110) mg/dl Lactate 0.5 L (0.7-2.1) mmol/L Liter Flow 2.0 FiO2 27.0 % Inspiratory BiPAP Expiratory BiPAP Crit Value Called To Crit Value Called By Crit Value Read Back Blood Gas Notified Time Sodium 135.0 (132-148) mmol/L Potassium (3.6-5.2) mmol/L Chloride 106.0 (98-107) mmol/L Carbon Dioxide (22-30) mmol/L Anion Gap (10-20) BUN (9-20) mg/dL Creatinine (0.8-1.5) mg/dL Est GFR ( Amer) Est GFR (Non-Af Amer) POC Glucose (mg/dL) 238 H (65-110) mg/dL Random Glucose (75-110) mg/dL Hemoglobin A1c (4.2-6.5) % Calcium (8.6-10.4) mg/dl Magnesium (1.6-2.3) mg/dL Total Bilirubin (0.2-1.3) mg/dL AST (17-59) U/L ALT (21-72) U/L Alkaline Phosphatase (38-126) U/L Total Creatine Kinase (55-170) U/L CK-MB (Mass) (0.0-3.38) ng/mL Troponin I (0.00-0.120) ng/mL Troponin I, Quant (0.00-0.120) ng/mL NT-Pro-B Natriuret Pep (0-900) pg/mL Total Protein (6.3-8.3) g/dL Albumin (3.5-5.0) g/dL Globulin (2.2-3.9) gm/dL Albumin/Globulin Ratio (1.0-2.1) Vitamin B12 (239-931) pg/mL TSH 3rd Generation (0.46-4.68) mIU/L Prolactin 7.1 (3.7-17.9) ng/mL Arterial Blood Potassium 4.3 (3.6-5.2) mmol/L Venous Blood Potassium (3.6-5.2) mmol/L Urine Color (YELLOW) Urine Clarity (Clear) Urine pH (5.0-8.0) Ur Specific [place] (1.003-1.030) Urine Protein (NEGATIVE) mg/dL Urine Glucose (UA) (Normal) mg/dL Urine Ketones (NEGATIVE) mg/dL Urine Blood (NEGATIVE) Urine Nitrate (NEGATIVE) Urine Bilirubin (NEGATIVE) Urine Urobilinogen (0.2-1.0) mg/dL Ur Leukocyte Esterase (Negative) Edy/uL Urine WBC (Auto) (0-5) /hpf Urine RBC (Auto) (0-3) /hpf Urine Bacteria (<OCC) Hyaline Casts (0-2) /lpf Ur Random Creatinine mg/dL U Random Total Protein 07/03/17 07/03/17 07/03/17 Range/Units 06:17 06:04 06:04 WBC 10.3 (4.8-10.8) K/uL RBC 4.09 L (4.40-5.90) Mil/uL Hgb 11.3 L (12.0-18.0) g/dL Hct 35.8 (35.0-51.0) % MCV 87.6 (80.0-94.0) fL MCH 27.6 (27.0-31.0) pg MCHC 31.5 L (33.0-37.0) g/dL RDW 18.3 H (11.5-14.5) % Plt Count 246 (130-400) K/uL MPV 8.4 (7.2-11.7) fL Neut % (Auto) 92.3 H (50.0-75.0) % Lymph % (Auto) 5.8 L (20.0-40.0) % [place] % (Auto) 1.5 (0.0-10.0) % Eos % (Auto) 0.1 (0.0-4.0) % Baso % (Auto) 0.3 (0.0-2.0) % Neut # 9.5 H (1.8-7.0) K/uL Lymph # 0.6 L (1.0-4.3) K/uL [place] # 0.2 (0.0-0.8) K/uL Eos # 0.0 (0.0-0.7) K/uL Baso # 0.0 (0.0-0.2) K/uL Neutrophils % (Manual) 90 H (50-75) % Band Neutrophils % 5 H (0-2) % Lymphocytes % (Manual) 4 L (20-40) % Monocytes % (Manual) 1 (0-10) % Platelet Estimate Normal (NORMAL) Large Platelets Present Giant Platelets Present Hypochromasia (manual) Slight Poikilocytosis (manual Slight Anisocytosis (manual) Slight PT (9.7-12.2) SECONDS INR APTT (21-34) SECONDS Puncture Site pCO2 (35-45) mm/Hg pO2 (80-100) mm/Hg HCO3 (21-28) mmol/L ABG pH (7.35-7.45) ABG Total CO2 (22-28) mmol/L ABG O2 Saturation (95-98) % ABG Base Excess (-2.0-3.0) mmol/L Luis Carlos Test ABG Potassium (3.6-5.2) mmol/L VBG pH (7.32-7.43) VBG pCO2 (40-60) mmHg VBG HCO3 mmol/L VBG Total CO2 (22-28) mmol/L VBG O2 Sat (Calc) (40-65) % VBG Base Excess (0.0-2.0) mmol/L VBG Potassium (3.6-5.2) mmol/L A-a O2 Difference mm/Hg Respiratory Index Glucose (75-110) mg/dl Lactate (0.7-2.1) mmol/L Liter Flow FiO2 % Inspiratory BiPAP Expiratory BiPAP Crit Value Called To Crit Value Called By Crit Value Read Back Blood Gas Notified Time Sodium 137 (132-148) mmol/L Potassium 4.3 (3.6-5.2) mmol/L Chloride 99 (98-107) mmol/L Carbon Dioxide 28 (22-30) mmol/L Anion Gap 14 (10-20) BUN 29 H (9-20) mg/dL Creatinine 1.8 H (0.8-1.5) mg/dL Est GFR ( Amer) 46 Est GFR (Non-Af Amer) 38 POC Glucose (mg/dL) 131 H (65-110) mg/dL Random Glucose 121 H (75-110) mg/dL Hemoglobin A1c (4.2-6.5) % Calcium 8.6 (8.6-10.4) mg/dl Magnesium 2.1 (1.6-2.3) mg/dL Total Bilirubin 0.6 (0.2-1.3) mg/dL AST 33 (17-59) U/L ALT 70 (21-72) U/L Alkaline Phosphatase 95 (38-126) U/L Total Creatine Kinase (55-170) U/L CK-MB (Mass) (0.0-3.38) ng/mL Troponin I (0.00-0.120) ng/mL Troponin I, Quant (0.00-0.120) ng/mL NT-Pro-B Natriuret Pep (0-900) pg/mL Total Protein 7.6 (6.3-8.3) g/dL Albumin 3.3 L (3.5-5.0) g/dL Globulin 4.2 H (2.2-3.9) gm/dL Albumin/Globulin Ratio 0.8 L (1.0-2.1) Vitamin B12 478 (239-931) pg/mL TSH 3rd Generation 0.65 (0.46-4.68) mIU/L Prolactin (3.7-17.9) ng/mL Arterial Blood Potassium (3.6-5.2) mmol/L Venous Blood Potassium (3.6-5.2) mmol/L Urine Color (YELLOW) Urine Clarity (Clear) Urine pH (5.0-8.0) Ur Specific [place] (1.003-1.030) Urine Protein (NEGATIVE) mg/dL Urine Glucose (UA) (Normal) mg/dL Urine Ketones (NEGATIVE) mg/dL Urine Blood (NEGATIVE) Urine Nitrate (NEGATIVE) Urine Bilirubin (NEGATIVE) Urine Urobilinogen (0.2-1.0) mg/dL Ur Leukocyte Esterase (Negative) Edy/uL Urine WBC (Auto) (0-5) /hpf Urine RBC (Auto) (0-3) /hpf Urine Bacteria (<OCC) Hyaline Casts (0-2) /lpf Ur Random Creatinine mg/dL U Random Total Protein 07/03/17 07/03/17 07/03/17 Range/Units 06:04 04:18 02:17 WBC (4.8-10.8) K/uL RBC (4.40-5.90) Mil/uL Hgb (12.0-18.0) g/dL Hct (35.0-51.0) % MCV (80.0-94.0) fL MCH (27.0-31.0) pg MCHC (33.0-37.0) g/dL RDW (11.5-14.5) % Plt Count (130-400) K/uL MPV (7.2-11.7) fL Neut % (Auto) (50.0-75.0) % Lymph % (Auto) (20.0-40.0) % [place] % (Auto) (0.0-10.0) % Eos % (Auto) (0.0-4.0) % Baso % (Auto) (0.0-2.0) % Neut # (1.8-7.0) K/uL Lymph # (1.0-4.3) K/uL [place] # (0.0-0.8) K/uL Eos # (0.0-0.7) K/uL Baso # (0.0-0.2) K/uL Neutrophils % (Manual) (50-75) % Band Neutrophils % (0-2) % Lymphocytes % (Manual) (20-40) % Monocytes % (Manual) (0-10) % Platelet Estimate (NORMAL) Large Platelets Giant Platelets Hypochromasia (manual) Poikilocytosis (manual Anisocytosis (manual) PT (9.7-12.2) SECONDS INR APTT (21-34) SECONDS Puncture Site pCO2 (35-45) mm/Hg pO2 (80-100) mm/Hg HCO3 (21-28) mmol/L ABG pH (7.35-7.45) ABG Total CO2 (22-28) mmol/L ABG O2 Saturation (95-98) % ABG Base Excess (-2.0-3.0) mmol/L Luis Carlos Test ABG Potassium (3.6-5.2) mmol/L VBG pH (7.32-7.43) VBG pCO2 (40-60) mmHg VBG HCO3 mmol/L VBG Total CO2 (22-28) mmol/L VBG O2 Sat (Calc) (40-65) % VBG Base Excess (0.0-2.0) mmol/L VBG Potassium (3.6-5.2) mmol/L A-a O2 Difference mm/Hg Respiratory Index Glucose (75-110) mg/dl Lactate (0.7-2.1) mmol/L Liter Flow FiO2 % Inspiratory BiPAP Expiratory BiPAP Crit Value Called To Crit Value Called By Crit Value Read Back Blood Gas Notified Time Sodium (132-148) mmol/L Potassium (3.6-5.2) mmol/L Chloride (98-107) mmol/L Carbon Dioxide (22-30) mmol/L Anion Gap (10-20) BUN (9-20) mg/dL Creatinine (0.8-1.5) mg/dL Est GFR ( Amer) Est GFR (Non-Af Amer) POC Glucose (mg/dL) 123 H 89 (65-110) mg/dL Random Glucose (75-110) mg/dL Hemoglobin A1c (4.2-6.5) % Calcium (8.6-10.4) mg/dl Magnesium (1.6-2.3) mg/dL Total Bilirubin (0.2-1.3) mg/dL AST (17-59) U/L ALT (21-72) U/L Alkaline Phosphatase (38-126) U/L Total Creatine Kinase 107 (55-170) U/L CK-MB (Mass) 3.76 H (0.0-3.38) ng/mL Troponin I (0.00-0.120) ng/mL Troponin I, Quant 0.1030 (0.00-0.120) ng/mL NT-Pro-B Natriuret Pep (0-900) pg/mL Total Protein (6.3-8.3) g/dL Albumin (3.5-5.0) g/dL Globulin (2.2-3.9) gm/dL Albumin/Globulin Ratio (1.0-2.1) Vitamin B12 (239-931) pg/mL TSH 3rd Generation (0.46-4.68) mIU/L Prolactin (3.7-17.9) ng/mL Arterial Blood Potassium (3.6-5.2) mmol/L Venous Blood Potassium (3.6-5.2) mmol/L Urine Color (YELLOW) Urine Clarity (Clear) Urine pH (5.0-8.0) Ur Specific [place] (1.003-1.030) Urine Protein (NEGATIVE) mg/dL Urine Glucose (UA) (Normal) mg/dL Urine Ketones (NEGATIVE) mg/dL Urine Blood (NEGATIVE) Urine Nitrate (NEGATIVE) Urine Bilirubin (NEGATIVE) Urine Urobilinogen (0.2-1.0) mg/dL Ur Leukocyte Esterase (Negative) Edy/uL Urine WBC (Auto) (0-5) /hpf Urine RBC (Auto) (0-3) /hpf Urine Bacteria (<OCC) Hyaline Casts (0-2) /lpf Ur Random Creatinine mg/dL U Random Total Protein 07/02/17 07/02/17 07/02/17 Range/Units 23:42 23:23 23:23 WBC (4.8-10.8) K/uL RBC (4.40-5.90) Mil/uL Hgb (12.0-18.0) g/dL Hct (35.0-51.0) % MCV (80.0-94.0) fL MCH (27.0-31.0) pg MCHC (33.0-37.0) g/dL RDW (11.5-14.5) % Plt Count (130-400) K/uL MPV (7.2-11.7) fL Neut % (Auto) (50.0-75.0) % Lymph % (Auto) (20.0-40.0) % [place] % (Auto) (0.0-10.0) % Eos % (Auto) (0.0-4.0) % Baso % (Auto) (0.0-2.0) % Neut # (1.8-7.0) K/uL Lymph # (1.0-4.3) K/uL [place] # (0.0-0.8) K/uL Eos # (0.0-0.7) K/uL Baso # (0.0-0.2) K/uL Neutrophils % (Manual) (50-75) % Band Neutrophils % (0-2) % Lymphocytes % (Manual) (20-40) % Monocytes % (Manual) (0-10) % Platelet Estimate (NORMAL) Large Platelets Giant Platelets Hypochromasia (manual) Poikilocytosis (manual Anisocytosis (manual) PT (9.7-12.2) SECONDS INR APTT (21-34) SECONDS Puncture Site pCO2 (35-45) mm/Hg pO2 (80-100) mm/Hg HCO3 (21-28) mmol/L ABG pH (7.35-7.45) ABG Total CO2 (22-28) mmol/L ABG O2 Saturation (95-98) % ABG Base Excess (-2.0-3.0) mmol/L Luis Carlos Test ABG Potassium (3.6-5.2) mmol/L VBG pH (7.32-7.43) VBG pCO2 (40-60) mmHg VBG HCO3 mmol/L VBG Total CO2 (22-28) mmol/L VBG O2 Sat (Calc) (40-65) % VBG Base Excess (0.0-2.0) mmol/L VBG Potassium (3.6-5.2) mmol/L A-a O2 Difference mm/Hg Respiratory Index Glucose (75-110) mg/dl Lactate (0.7-2.1) mmol/L Liter Flow FiO2 % Inspiratory BiPAP Expiratory BiPAP Crit Value Called To Crit Value Called By Crit Value Read Back Blood Gas Notified Time Sodium (132-148) mmol/L Potassium (3.6-5.2) mmol/L Chloride (98-107) mmol/L Carbon Dioxide (22-30) mmol/L Anion Gap (10-20) BUN (9-20) mg/dL Creatinine (0.8-1.5) mg/dL Est GFR ( Amer) Est GFR (Non-Af Amer) POC Glucose (mg/dL) 75 (65-110) mg/dL Random Glucose (75-110) mg/dL Hemoglobin A1c (4.2-6.5) % Calcium (8.6-10.4) mg/dl Magnesium (1.6-2.3) mg/dL Total Bilirubin (0.2-1.3) mg/dL AST (17-59) U/L ALT (21-72) U/L Alkaline Phosphatase (38-126) U/L Total Creatine Kinase (55-170) U/L CK-MB (Mass) (0.0-3.38) ng/mL Troponin I (0.00-0.120) ng/mL Troponin I, Quant (0.00-0.120) ng/mL NT-Pro-B Natriuret Pep (0-900) pg/mL Total Protein (6.3-8.3) g/dL Albumin (3.5-5.0) g/dL Globulin (2.2-3.9) gm/dL Albumin/Globulin Ratio (1.0-2.1) Vitamin B12 (239-931) pg/mL TSH 3rd Generation (0.46-4.68) mIU/L Prolactin (3.7-17.9) ng/mL Arterial Blood Potassium (3.6-5.2) mmol/L Venous Blood Potassium (3.6-5.2) mmol/L Urine Color (YELLOW) Urine Clarity (Clear) Urine pH (5.0-8.0) Ur Specific [place] (1.003-1.030) Urine Protein (NEGATIVE) mg/dL Urine Glucose (UA) (Normal) mg/dL Urine Ketones (NEGATIVE) mg/dL Urine Blood (NEGATIVE) Urine Nitrate (NEGATIVE) Urine Bilirubin (NEGATIVE) Urine Urobilinogen (0.2-1.0) mg/dL Ur Leukocyte Esterase (Negative) Edy/uL Urine WBC (Auto) (0-5) /hpf Urine RBC (Auto) (0-3) /hpf Urine Bacteria (<OCC) Hyaline Casts (0-2) /lpf Ur Random Creatinine 118.6 mg/dL U Random Total Protein 434.0 H Cancelled 10/12/17 10/12/17 10/12/17 Range/Units 23:22 23:22 22:57 WBC (4.8-10.8) K/uL RBC (4.40-5.90) Mil/uL Hgb (12.0-18.0) g/dL Hct (35.0-51.0) % MCV (80.0-94.0) fL MCH (27.0-31.0) pg MCHC (33.0-37.0) g/dL RDW (11.5-14.5) % Plt Count (130-400) K/uL MPV (7.2-11.7) fL Neut % (Auto) (50.0-75.0) % Lymph % (Auto) (20.0-40.0) % [place] % (Auto) (0.0-10.0) % Eos % (Auto) (0.0-4.0) % Baso % (Auto) (0.0-2.0) % Neut # (1.8-7.0) K/uL Lymph # (1.0-4.3) K/uL [place] # (0.0-0.8) K/uL Eos # (0.0-0.7) K/uL Baso # (0.0-0.2) K/uL Neutrophils % (Manual) (50-75) % Band Neutrophils % (0-2) % Lymphocytes % (Manual) (20-40) % Monocytes % (Manual) (0-10) % Platelet Estimate (NORMAL) Large Platelets Giant Platelets Hypochromasia (manual) Poikilocytosis (manual Anisocytosis (manual) PT (9.7-12.2) SECONDS INR APTT (21-34) SECONDS Puncture Site pCO2 (35-45) mm/Hg pO2 27 L (80-100) mm/Hg HCO3 (21-28) mmol/L ABG pH (7.35-7.45) ABG Total CO2 (22-28) mmol/L ABG O2 Saturation (95-98) % ABG Base Excess (-2.0-3.0) mmol/L Luis Carlos Test ABG Potassium (3.6-5.2) mmol/L VBG pH 7.29 L (7.32-7.43) VBG pCO2 58 (40-60) mmHg VBG HCO3 23.5 mmol/L VBG Total CO2 29.7 H (22-28) mmol/L VBG O2 Sat (Calc) 58.3 (40-65) % VBG Base Excess 0.1 (0.0-2.0) mmol/L VBG Potassium 4.1 (3.6-5.2) mmol/L A-a O2 Difference mm/Hg Respiratory Index Glucose > 750 H* D (75-110) mg/dl Lactate 1.0 (0.7-2.1) mmol/L Liter Flow FiO2 % Inspiratory BiPAP Expiratory BiPAP Crit Value Called To Richard pinto icu Crit Value Called By Kathleen Crit Value Read Back N Blood Gas Notified Time 2308 Sodium 129.0 L (132-148) mmol/L Potassium (3.6-5.2) mmol/L Chloride 92.0 L (98-107) mmol/L Carbon Dioxide (22-30) mmol/L Anion Gap (10-20) BUN (9-20) mg/dL Creatinine (0.8-1.5) mg/dL Est GFR ( Amer) Est GFR (Non-Af Amer) POC Glucose (mg/dL) (65-110) mg/dL Random Glucose (75-110) mg/dL Hemoglobin A1c 6.8 H (4.2-6.5) % Calcium (8.6-10.4) mg/dl Magnesium (1.6-2.3) mg/dL Total Bilirubin (0.2-1.3) mg/dL AST (17-59) U/L ALT (21-72) U/L Alkaline Phosphatase (38-126) U/L Total Creatine Kinase 131 (55-170) U/L CK-MB (Mass) 3.66 H (0.0-3.38) ng/mL Troponin I (0.00-0.120) ng/mL Troponin I, Quant 0.1250 H* (0.00-0.120) ng/mL NT-Pro-B Natriuret Pep (0-900) pg/mL Total Protein (6.3-8.3) g/dL Albumin (3.5-5.0) g/dL Globulin (2.2-3.9) gm/dL Albumin/Globulin Ratio (1.0-2.1) Vitamin B12 (239-931) pg/mL TSH 3rd Generation (0.46-4.68) mIU/L Prolactin (3.7-17.9) ng/mL Arterial Blood Potassium (3.6-5.2) mmol/L Venous Blood Potassium 4.1 (3.6-5.2) mmol/L Urine Color (YELLOW) Urine Clarity (Clear) Urine pH (5.0-8.0) Ur Specific [place] (1.003-1.030) Urine Protein (NEGATIVE) mg/dL Urine Glucose (UA) (Normal) mg/dL Urine Ketones (NEGATIVE) mg/dL Urine Blood (NEGATIVE) Urine Nitrate (NEGATIVE) Urine Bilirubin (NEGATIVE) Urine Urobilinogen (0.2-1.0) mg/dL Ur Leukocyte Esterase (Negative) Edy/uL Urine WBC (Auto) (0-5) /hpf Urine RBC (Auto) (0-3) /hpf Urine Bacteria (<OCC) Hyaline Casts (0-2) /lpf Ur Random Creatinine mg/dL U Random Total Protein 07/02/17 07/02/17 07/02/17 Range/Units 22:29 21:27 21:20 WBC (4.8-10.8) K/uL RBC (4.40-5.90) Mil/uL Hgb (12.0-18.0) g/dL Hct (35.0-51.0) % MCV (80.0-94.0) fL MCH (27.0-31.0) pg MCHC (33.0-37.0) g/dL RDW (11.5-14.5) % Plt Count (130-400) K/uL MPV (7.2-11.7) fL Neut % (Auto) (50.0-75.0) % Lymph % (Auto) (20.0-40.0) % [place] % (Auto) (0.0-10.0) % Eos % (Auto) (0.0-4.0) % Baso % (Auto) (0.0-2.0) % Neut # (1.8-7.0) K/uL Lymph # (1.0-4.3) K/uL [place] # (0.0-0.8) K/uL Eos # (0.0-0.7) K/uL Baso # (0.0-0.2) K/uL Neutrophils % (Manual) (50-75) % Band Neutrophils % (0-2) % Lymphocytes % (Manual) (20-40) % Monocytes % (Manual) (0-10) % Platelet Estimate (NORMAL) Large Platelets Giant Platelets Hypochromasia (manual) Poikilocytosis (manual Anisocytosis (manual) PT (9.7-12.2) SECONDS INR APTT (21-34) SECONDS Puncture Site pCO2 (35-45) mm/Hg pO2 (80-100) mm/Hg HCO3 (21-28) mmol/L ABG pH (7.35-7.45) ABG Total CO2 (22-28) mmol/L ABG O2 Saturation (95-98) % ABG Base Excess (-2.0-3.0) mmol/L Luis Carlos Test ABG Potassium (3.6-5.2) mmol/L VBG pH (7.32-7.43) VBG pCO2 (40-60) mmHg VBG HCO3 mmol/L VBG Total CO2 (22-28) mmol/L VBG O2 Sat (Calc) (40-65) % VBG Base Excess (0.0-2.0) mmol/L VBG Potassium (3.6-5.2) mmol/L A-a O2 Difference mm/Hg Respiratory Index Glucose (75-110) mg/dl Lactate (0.7-2.1) mmol/L Liter Flow FiO2 % Inspiratory BiPAP Expiratory BiPAP Crit Value Called To Crit Value Called By Crit Value Read Back Blood Gas Notified Time Sodium (132-148) mmol/L Potassium (3.6-5.2) mmol/L Chloride (98-107) mmol/L Carbon Dioxide (22-30) mmol/L Anion Gap (10-20) BUN (9-20) mg/dL Creatinine (0.8-1.5) mg/dL Est GFR ( Amer) Est GFR (Non-Af Amer) POC Glucose (mg/dL) 105 49 L 48 L (65-110) mg/dL Random Glucose (75-110) mg/dL Hemoglobin A1c (4.2-6.5) % Calcium (8.6-10.4) mg/dl Magnesium (1.6-2.3) mg/dL Total Bilirubin (0.2-1.3) mg/dL AST (17-59) U/L ALT (21-72) U/L Alkaline Phosphatase (38-126) U/L Total Creatine Kinase (55-170) U/L CK-MB (Mass) (0.0-3.38) ng/mL Troponin I (0.00-0.120) ng/mL Troponin I, Quant (0.00-0.120) ng/mL NT-Pro-B Natriuret Pep (0-900) pg/mL Total Protein (6.3-8.3) g/dL Albumin (3.5-5.0) g/dL Globulin (2.2-3.9) gm/dL Albumin/Globulin Ratio (1.0-2.1) Vitamin B12 (239-931) pg/mL TSH 3rd Generation (0.46-4.68) mIU/L Prolactin (3.7-17.9) ng/mL Arterial Blood Potassium (3.6-5.2) mmol/L Venous Blood Potassium (3.6-5.2) mmol/L Urine Color (YELLOW) Urine Clarity (Clear) Urine pH (5.0-8.0) Ur Specific [place] (1.003-1.030) Urine Protein (NEGATIVE) mg/dL Urine Glucose (UA) (Normal) mg/dL Urine Ketones (NEGATIVE) mg/dL Urine Blood (NEGATIVE) Urine Nitrate (NEGATIVE) Urine Bilirubin (NEGATIVE) Urine Urobilinogen (0.2-1.0) mg/dL Ur Leukocyte Esterase (Negative) Edy/uL Urine WBC (Auto) (0-5) /hpf Urine RBC (Auto) (0-3) /hpf Urine Bacteria (<OCC) Hyaline Casts (0-2) /lpf Ur Random Creatinine mg/dL U Random Total Protein 07/02/17 07/02/17 07/02/17 Range/Units 21:12 20:01 18:55 WBC (4.8-10.8) K/uL RBC (4.40-5.90) Mil/uL Hgb (12.0-18.0) g/dL Hct (35.0-51.0) % MCV (80.0-94.0) fL MCH (27.0-31.0) pg MCHC (33.0-37.0) g/dL RDW (11.5-14.5) % Plt Count (130-400) K/uL MPV (7.2-11.7) fL Neut % (Auto) (50.0-75.0) % Lymph % (Auto) (20.0-40.0) % [place] % (Auto) (0.0-10.0) % Eos % (Auto) (0.0-4.0) % Baso % (Auto) (0.0-2.0) % Neut # (1.8-7.0) K/uL Lymph # (1.0-4.3) K/uL [place] # (0.0-0.8) K/uL Eos # (0.0-0.7) K/uL Baso # (0.0-0.2) K/uL Neutrophils % (Manual) (50-75) % Band Neutrophils % (0-2) % Lymphocytes % (Manual) (20-40) % Monocytes % (Manual) (0-10) % Platelet Estimate (NORMAL) Large Platelets Giant Platelets Hypochromasia (manual) Poikilocytosis (manual Anisocytosis (manual) PT (9.7-12.2) SECONDS INR APTT (21-34) SECONDS Puncture Site pCO2 (35-45) mm/Hg pO2 (80-100) mm/Hg HCO3 (21-28) mmol/L ABG pH (7.35-7.45) ABG Total CO2 (22-28) mmol/L ABG O2 Saturation (95-98) % ABG Base Excess (-2.0-3.0) mmol/L Luis Carlos Test ABG Potassium (3.6-5.2) mmol/L VBG pH (7.32-7.43) VBG pCO2 (40-60) mmHg VBG HCO3 mmol/L VBG Total CO2 (22-28) mmol/L VBG O2 Sat (Calc) (40-65) % VBG Base Excess (0.0-2.0) mmol/L VBG Potassium (3.6-5.2) mmol/L A-a O2 Difference mm/Hg Respiratory Index Glucose (75-110) mg/dl Lactate (0.7-2.1) mmol/L Liter Flow FiO2 % Inspiratory BiPAP Expiratory BiPAP Crit Value Called To Crit Value Called By Crit Value Read Back Blood Gas Notified Time Sodium (132-148) mmol/L Potassium (3.6-5.2) mmol/L Chloride (98-107) mmol/L Carbon Dioxide (22-30) mmol/L Anion Gap (10-20) BUN (9-20) mg/dL Creatinine (0.8-1.5) mg/dL Est GFR ( Amer) Est GFR (Non-Af Amer) POC Glucose (mg/dL) 92 47 L (65-110) mg/dL Random Glucose (75-110) mg/dL Hemoglobin A1c (4.2-6.5) % Calcium (8.6-10.4) mg/dl Magnesium (1.6-2.3) mg/dL Total Bilirubin (0.2-1.3) mg/dL AST (17-59) U/L ALT (21-72) U/L Alkaline Phosphatase (38-126) U/L Total Creatine Kinase (55-170) U/L CK-MB (Mass) (0.0-3.38) ng/mL Troponin I (0.00-0.120) ng/mL Troponin I, Quant (0.00-0.120) ng/mL NT-Pro-B Natriuret Pep (0-900) pg/mL Total Protein (6.3-8.3) g/dL Albumin (3.5-5.0) g/dL Globulin (2.2-3.9) gm/dL Albumin/Globulin Ratio (1.0-2.1) Vitamin B12 (239-931) pg/mL TSH 3rd Generation (0.46-4.68) mIU/L Prolactin (3.7-17.9) ng/mL Arterial Blood Potassium (3.6-5.2) mmol/L Venous Blood Potassium (3.6-5.2) mmol/L Urine Color Yellow (YELLOW) Urine Clarity Clear (Clear) Urine pH 5.0 (5.0-8.0) Ur Specific [place] 1.011 (1.003-1.030) Urine Protein 3+ H (NEGATIVE) mg/dL Urine Glucose (UA) Normal (Normal) mg/dL Urine Ketones Negative (NEGATIVE) mg/dL Urine Blood 1+ H (NEGATIVE) Urine Nitrate Negative (NEGATIVE) Urine Bilirubin Negative (NEGATIVE) Urine Urobilinogen Normal (0.2-1.0) mg/dL Ur Leukocyte Esterase Neg (Negative) Edy/uL Urine WBC (Auto) < 1 (0-5) /hpf Urine RBC (Auto) < 1 (0-3) /hpf Urine Bacteria Rare (<OCC) Hyaline Casts 0-2 (0-2) /lpf Ur Random Creatinine mg/dL U Random Total Protein 07/02/17 07/02/17 07/02/17 Range/Units 18:36 17:32 16:40 WBC (4.8-10.8) K/uL RBC (4.40-5.90) Mil/uL Hgb (12.0-18.0) g/dL Hct (35.0-51.0) % MCV (80.0-94.0) fL MCH (27.0-31.0) pg MCHC (33.0-37.0) g/dL RDW (11.5-14.5) % Plt Count (130-400) K/uL MPV (7.2-11.7) fL Neut % (Auto) (50.0-75.0) % Lymph % (Auto) (20.0-40.0) % [place] % (Auto) (0.0-10.0) % Eos % (Auto) (0.0-4.0) % Baso % (Auto) (0.0-2.0) % Neut # (1.8-7.0) K/uL Lymph # (1.0-4.3) K/uL [place] # (0.0-0.8) K/uL Eos # (0.0-0.7) K/uL Baso # (0.0-0.2) K/uL Neutrophils % (Manual) (50-75) % Band Neutrophils % (0-2) % Lymphocytes % (Manual) (20-40) % Monocytes % (Manual) (0-10) % Platelet Estimate (NORMAL) Large Platelets Giant Platelets Hypochromasia (manual) Poikilocytosis (manual Anisocytosis (manual) PT (9.7-12.2) SECONDS INR APTT (21-34) SECONDS Puncture Site Rr Rb pCO2 61 H 64 H (35-45) mm/Hg pO2 140 H 88 (80-100) mm/Hg HCO3 25.4 25.6 (21-28) mmol/L ABG pH 7.28 L 7.27 L (7.35-7.45) ABG Total CO2 30.6 H 31.4 H (22-28) mmol/L ABG O2 Saturation 99.3 H 96.9 (95-98) % ABG Base Excess 0.5 0.9 (-2.0-3.0) mmol/L Luis Carlos Test Pos Na ABG Potassium 4.3 4.1 (3.6-5.2) mmol/L VBG pH (7.32-7.43) VBG pCO2 (40-60) mmHg VBG HCO3 mmol/L VBG Total CO2 (22-28) mmol/L VBG O2 Sat (Calc) (40-65) % VBG Base Excess (0.0-2.0) mmol/L VBG Potassium (3.6-5.2) mmol/L A-a O2 Difference 69.0 60.0 mm/Hg Respiratory Index 0.5 0.7 Glucose 53 L 60 L (75-110) mg/dl Lactate 0.6 L 0.5 L (0.7-2.1) mmol/L Liter Flow 3.0 FiO2 40.0 32.0 % Inspiratory BiPAP 12 Expiratory BiPAP 6 Crit Value Called To Crit Value Called By Crit Value Read Back Blood Gas Notified Time Sodium 136.0 139.0 (132-148) mmol/L Potassium (3.6-5.2) mmol/L Chloride 108.0 H 108.0 H (98-107) mmol/L Carbon Dioxide (22-30) mmol/L Anion Gap (10-20) BUN (9-20) mg/dL Creatinine (0.8-1.5) mg/dL Est GFR ( Amer) Est GFR (Non-Af Amer) POC Glucose (mg/dL) 110 (65-110) mg/dL Random Glucose (75-110) mg/dL Hemoglobin A1c (4.2-6.5) % Calcium (8.6-10.4) mg/dl Magnesium (1.6-2.3) mg/dL Total Bilirubin (0.2-1.3) mg/dL AST (17-59) U/L ALT (21-72) U/L Alkaline Phosphatase (38-126) U/L Total Creatine Kinase (55-170) U/L CK-MB (Mass) (0.0-3.38) ng/mL Troponin I (0.00-0.120) ng/mL Troponin I, Quant (0.00-0.120) ng/mL NT-Pro-B Natriuret Pep (0-900) pg/mL Total Protein (6.3-8.3) g/dL Albumin (3.5-5.0) g/dL Globulin (2.2-3.9) gm/dL Albumin/Globulin Ratio (1.0-2.1) Vitamin B12 (239-931) pg/mL TSH 3rd Generation (0.46-4.68) mIU/L Prolactin (3.7-17.9) ng/mL Arterial Blood Potassium 4.3 4.1 (3.6-5.2) mmol/L Venous Blood Potassium (3.6-5.2) mmol/L Urine Color (YELLOW) Urine Clarity (Clear) Urine pH (5.0-8.0) Ur Specific [place] (1.003-1.030) Urine Protein (NEGATIVE) mg/dL Urine Glucose (UA) (Normal) mg/dL Urine Ketones (NEGATIVE) mg/dL Urine Blood (NEGATIVE) Urine Nitrate (NEGATIVE) Urine Bilirubin (NEGATIVE) Urine Urobilinogen (0.2-1.0) mg/dL Ur Leukocyte Esterase (Negative) Edy/uL Urine WBC (Auto) (0-5) /hpf Urine RBC (Auto) (0-3) /hpf Urine Bacteria (<OCC) Hyaline Casts (0-2) /lpf Ur Random Creatinine mg/dL U Random Total Protein 07/02/17 07/02/17 07/02/17 Range/Units 15:14 15:14 15:14 WBC 11.0 H (4.8-10.8) K/uL RBC 4.19 L (4.40-5.90) Mil/uL Hgb 11.5 L (12.0-18.0) g/dL Hct 36.4 (35.0-51.0) % MCV 86.8 (80.0-94.0) fL MCH 27.5 (27.0-31.0) pg MCHC 31.7 L (33.0-37.0) g/dL RDW 18.0 H (11.5-14.5) % Plt Count 249 (130-400) K/uL MPV 8.4 (7.2-11.7) fL Neut % (Auto) 80.8 H (50.0-75.0) % Lymph % (Auto) 13.2 L (20.0-40.0) % [place] % (Auto) 4.7 (0.0-10.0) % Eos % (Auto) 1.0 (0.0-4.0) % Baso % (Auto) 0.3 (0.0-2.0) % Neut # 8.9 H (1.8-7.0) K/uL Lymph # 1.5 (1.0-4.3) K/uL [place] # 0.5 (0.0-0.8) K/uL Eos # 0.1 (0.0-0.7) K/uL Baso # 0.0 (0.0-0.2) K/uL Neutrophils % (Manual) (50-75) % Band Neutrophils % (0-2) % Lymphocytes % (Manual) (20-40) % Monocytes % (Manual) (0-10) % Platelet Estimate (NORMAL) Large Platelets Giant Platelets Hypochromasia (manual) Poikilocytosis (manual Anisocytosis (manual) PT 12.4 H (9.7-12.2) SECONDS INR 1.1 APTT 34 (21-34) SECONDS Puncture Site pCO2 (35-45) mm/Hg pO2 (80-100) mm/Hg HCO3 (21-28) mmol/L ABG pH (7.35-7.45) ABG Total CO2 (22-28) mmol/L ABG O2 Saturation (95-98) % ABG Base Excess (-2.0-3.0) mmol/L Luis Carlos Test ABG Potassium (3.6-5.2) mmol/L VBG pH (7.32-7.43) VBG pCO2 (40-60) mmHg VBG HCO3 mmol/L VBG Total CO2 (22-28) mmol/L VBG O2 Sat (Calc) (40-65) % VBG Base Excess (0.0-2.0) mmol/L VBG Potassium (3.6-5.2) mmol/L A-a O2 Difference mm/Hg Respiratory Index Glucose (75-110) mg/dl Lactate (0.7-2.1) mmol/L Liter Flow FiO2 % Inspiratory BiPAP Expiratory BiPAP Crit Value Called To Crit Value Called By Crit Value Read Back Blood Gas Notified Time Sodium 135 (132-148) mmol/L Potassium 4.2 (3.6-5.2) mmol/L Chloride 99 (98-107) mmol/L Carbon Dioxide 28 (22-30) mmol/L Anion Gap 12 (10-20) BUN 33 H (9-20) mg/dL Creatinine 1.9 H (0.8-1.5) mg/dL Est GFR ( Amer) 43 Est GFR (Non-Af Amer) 36 POC Glucose (mg/dL) (65-110) mg/dL Random Glucose 93 (75-110) mg/dL Hemoglobin A1c (4.2-6.5) % Calcium 8.3 L (8.6-10.4) mg/dl Magnesium 2.0 (1.6-2.3) mg/dL Total Bilirubin 0.6 (0.2-1.3) mg/dL AST 46 (17-59) U/L ALT 72 (21-72) U/L Alkaline Phosphatase 108 (38-126) U/L Total Creatine Kinase (55-170) U/L CK-MB (Mass) (0.0-3.38) ng/mL Troponin I 0.1100 (0.00-0.120) ng/mL Troponin I, Quant (0.00-0.120) ng/mL NT-Pro-B Natriuret Pep 6460 H (0-900) pg/mL Total Protein 7.6 (6.3-8.3) g/dL Albumin 3.5 (3.5-5.0) g/dL Globulin 4.1 H (2.2-3.9) gm/dL Albumin/Globulin Ratio 0.9 L (1.0-2.1) Vitamin B12 (239-931) pg/mL TSH 3rd Generation (0.46-4.68) mIU/L Prolactin (3.7-17.9) ng/mL Arterial Blood Potassium (3.6-5.2) mmol/L Venous Blood Potassium (3.6-5.2) mmol/L Urine Color (YELLOW) Urine Clarity (Clear) Urine pH (5.0-8.0) Ur Specific [place] (1.003-1.030) Urine Protein (NEGATIVE) mg/dL Urine Glucose (UA) (Normal) mg/dL Urine Ketones (NEGATIVE) mg/dL Urine Blood (NEGATIVE) Urine Nitrate (NEGATIVE) Urine Bilirubin (NEGATIVE) Urine Urobilinogen (0.2-1.0) mg/dL Ur Leukocyte Esterase (Negative) Edy/uL Urine WBC (Auto) (0-5) /hpf Urine RBC (Auto) (0-3) /hpf Urine Bacteria (<OCC) Hyaline Casts (0-2) /lpf Ur Random Creatinine mg/dL U Random Total Protein Laboratory Results - last 24 hr 07/02/17 07/02/17 07/02/17 15:14 15:14 15:14 WBC 11.0 H RBC 4.19 L Hgb 11.5 L Hct 36.4 MCV 86.8 MCH 27.5 MCHC 31.7 L RDW 18.0 H Plt Count 249 MPV 8.4 Neut % (Auto) 80.8 H Lymph % (Auto) 13.2 L [place] % (Auto) 4.7 Eos % (Auto) 1.0 Baso % (Auto) 0.3 Neut # 8.9 H Lymph # 1.5 [place] # 0.5 Eos # 0.1 Baso # 0.0 Neutrophils % (Manual) Band Neutrophils % Lymphocytes % (Manual) Monocytes % (Manual) Platelet Estimate Large Platelets Giant Platelets Hypochromasia (manual) Poikilocytosis (manual Anisocytosis (manual) PT 12.4 H INR 1.1 APTT 34 Puncture Site pCO2 pO2 HCO3 ABG pH ABG Total CO2 ABG O2 Saturation ABG Base Excess Luis Carlos Test ABG Potassium VBG pH VBG pCO2 VBG HCO3 VBG Total CO2 VBG O2 Sat (Calc) VBG Base Excess VBG Potassium A-a O2 Difference Respiratory Index Glucose Lactate Liter Flow FiO2 Inspiratory BiPAP Expiratory BiPAP Crit Value Called To Crit Value Called By Crit Value Read Back Blood Gas Notified Time Sodium 135 Potassium 4.2 Chloride 99 Carbon Dioxide 28 Anion Gap 12 BUN 33 H Creatinine 1.9 H Est GFR ( Amer) 43 Est GFR (Non-Af Amer) 36 POC Glucose (mg/dL) Random Glucose 93 Hemoglobin A1c Calcium 8.3 L Magnesium 2.0 Total Bilirubin 0.6 AST 46 ALT 72 Alkaline Phosphatase 108 Total Creatine Kinase CK-MB (Mass) Troponin I 0.1100 Troponin I, Quant NT-Pro-B Natriuret Pep 6460 H Total Protein 7.6 Albumin 3.5 Globulin 4.1 H Albumin/Globulin Ratio 0.9 L Vitamin B12 TSH 3rd Generation Prolactin Arterial Blood Potassium Venous Blood Potassium Urine Color Urine Clarity Urine pH Ur Specific [place] Urine Protein Urine Glucose (UA) Urine Ketones Urine Blood Urine Nitrate Urine Bilirubin Urine Urobilinogen Ur Leukocyte Esterase Urine WBC (Auto) Urine RBC (Auto) Urine Bacteria Hyaline Casts Ur Random Creatinine U Random Total Protein 07/02/17 07/02/17 07/02/17 16:40 17:32 18:36 WBC RBC Hgb Hct MCV MCH MCHC RDW Plt Count MPV Neut % (Auto) Lymph % (Auto) [place] % (Auto) Eos % (Auto) Baso % (Auto) Neut # Lymph # [place] # Eos # Baso # Neutrophils % (Manual) Band Neutrophils % Lymphocytes % (Manual) Monocytes % (Manual) Platelet Estimate Large Platelets Giant Platelets Hypochromasia (manual) Poikilocytosis (manual Anisocytosis (manual) PT INR APTT Puncture Site Rb Rr pCO2 64 H 61 H pO2 88 140 H HCO3 25.6 25.4 ABG pH 7.27 L 7.28 L ABG Total CO2 31.4 H 30.6 H ABG O2 Saturation 96.9 99.3 H ABG Base Excess 0.9 0.5 Luis Carlos Test Na Pos ABG Potassium 4.1 4.3 VBG pH VBG pCO2 VBG HCO3 VBG Total CO2 VBG O2 Sat (Calc) VBG Base Excess VBG Potassium A-a O2 Difference 60.0 69.0 Respiratory Index 0.7 0.5 Glucose 60 L 53 L Lactate 0.5 L 0.6 L Liter Flow 3.0 FiO2 32.0 40.0 Inspiratory BiPAP 12 Expiratory BiPAP 6 Crit Value Called To Crit Value Called By Crit Value Read Back Blood Gas Notified Time Sodium 139.0 136.0 Potassium Chloride 108.0 H 108.0 H Carbon Dioxide Anion Gap BUN Creatinine Est GFR ( Amer) Est GFR (Non-Af Amer) POC Glucose (mg/dL) 110 Random Glucose Hemoglobin A1c Calcium Magnesium Total Bilirubin AST ALT Alkaline Phosphatase Total Creatine Kinase CK-MB (Mass) Troponin I Troponin I, Quant NT-Pro-B Natriuret Pep Total Protein Albumin Globulin Albumin/Globulin Ratio Vitamin B12 TSH 3rd Generation Prolactin Arterial Blood Potassium 4.1 4.3 Venous Blood Potassium Urine Color Urine Clarity Urine pH Ur Specific [place] Urine Protein Urine Glucose (UA) Urine Ketones Urine Blood Urine Nitrate Urine Bilirubin Urine Urobilinogen Ur Leukocyte Esterase Urine WBC (Auto) Urine RBC (Auto) Urine Bacteria Hyaline Casts Ur Random Creatinine U Random Total Protein 07/02/17 07/02/17 07/02/17 18:55 20:01 21:12 WBC RBC Hgb Hct MCV MCH MCHC RDW Plt Count MPV Neut % (Auto) Lymph % (Auto) [place] % (Auto) Eos % (Auto) Baso % (Auto) Neut # Lymph # [place] # Eos # Baso # Neutrophils % (Manual) Band Neutrophils % Lymphocytes % (Manual) Monocytes % (Manual) Platelet Estimate Large Platelets Giant Platelets Hypochromasia (manual) Poikilocytosis (manual Anisocytosis (manual) PT INR APTT Puncture Site pCO2 pO2 HCO3 ABG pH ABG Total CO2 ABG O2 Saturation ABG Base Excess Luis Carlos Test ABG Potassium VBG pH VBG pCO2 VBG HCO3 VBG Total CO2 VBG O2 Sat (Calc) VBG Base Excess VBG Potassium A-a O2 Difference Respiratory Index Glucose Lactate Liter Flow FiO2 Inspiratory BiPAP Expiratory BiPAP Crit Value Called To Crit Value Called By Crit Value Read Back Blood Gas Notified Time Sodium Potassium Chloride Carbon Dioxide Anion Gap BUN Creatinine Est GFR ( Amer) Est GFR (Non-Af Amer) POC Glucose (mg/dL) 47 L 92 Random Glucose Hemoglobin A1c Calcium Magnesium Total Bilirubin AST ALT Alkaline Phosphatase Total Creatine Kinase CK-MB (Mass) Troponin I Troponin I, Quant NT-Pro-B Natriuret Pep Total Protein Albumin Globulin Albumin/Globulin Ratio Vitamin B12 TSH 3rd Generation Prolactin Arterial Blood Potassium Venous Blood Potassium Urine Color Yellow Urine Clarity Clear Urine pH 5.0 Ur Specific [place] 1.011 Urine Protein 3+ H Urine Glucose (UA) Normal Urine Ketones Negative Urine Blood 1+ H Urine Nitrate Negative Urine Bilirubin Negative Urine Urobilinogen Normal Ur Leukocyte Esterase Neg Urine WBC (Auto) < 1 Urine RBC (Auto) < 1 Urine Bacteria Rare Hyaline Casts 0-2 Ur Random Creatinine U Random Total Protein 07/02/17 07/02/17 07/02/17 21:20 21:27 22:29 WBC RBC Hgb Hct MCV MCH MCHC RDW Plt Count MPV Neut % (Auto) Lymph % (Auto) [place] % (Auto) Eos % (Auto) Baso % (Auto) Neut # Lymph # [place] # Eos # Baso # Neutrophils % (Manual) Band Neutrophils % Lymphocytes % (Manual) Monocytes % (Manual) Platelet Estimate Large Platelets Giant Platelets Hypochromasia (manual) Poikilocytosis (manual Anisocytosis (manual) PT INR APTT Puncture Site pCO2 pO2 HCO3 ABG pH ABG Total CO2 ABG O2 Saturation ABG Base Excess Luis Carlos Test ABG Potassium VBG pH VBG pCO2 VBG HCO3 VBG Total CO2 VBG O2 Sat (Calc) VBG Base Excess VBG Potassium A-a O2 Difference Respiratory Index Glucose Lactate Liter Flow FiO2 Inspiratory BiPAP Expiratory BiPAP Crit Value Called To Crit Value Called By Crit Value Read Back Blood Gas Notified Time Sodium Potassium Chloride Carbon Dioxide Anion Gap BUN Creatinine Est GFR ( Amer) Est GFR (Non-Af Amer) POC Glucose (mg/dL) 48 L 49 L 105 Random Glucose Hemoglobin A1c Calcium Magnesium Total Bilirubin AST ALT Alkaline Phosphatase Total Creatine Kinase CK-MB (Mass) Troponin I Troponin I, Quant NT-Pro-B Natriuret Pep Total Protein Albumin Globulin Albumin/Globulin Ratio Vitamin B12 TSH 3rd Generation Prolactin Arterial Blood Potassium Venous Blood Potassium Urine Color Urine Clarity Urine pH Ur Specific [place] Urine Protein Urine Glucose (UA) Urine Ketones Urine Blood Urine Nitrate Urine Bilirubin Urine Urobilinogen Ur Leukocyte Esterase Urine WBC (Auto) Urine RBC (Auto) Urine Bacteria Hyaline Casts Ur Random Creatinine U Random Total Protein 07/02/17 07/02/17 07/02/17 22:57 23:22 23:22 WBC RBC Hgb Hct MCV MCH MCHC RDW Plt Count MPV Neut % (Auto) Lymph % (Auto) [place] % (Auto) Eos % (Auto) Baso % (Auto) Neut # Lymph # [place] # Eos # Baso # Neutrophils % (Manual) Band Neutrophils % Lymphocytes % (Manual) Monocytes % (Manual) Platelet Estimate Large Platelets Giant Platelets Hypochromasia (manual) Poikilocytosis (manual Anisocytosis (manual) PT INR APTT Puncture Site pCO2 pO2 27 L HCO3 ABG pH ABG Total CO2 ABG O2 Saturation ABG Base Excess Luis Carlos Test ABG Potassium VBG pH 7.29 L VBG pCO2 58 VBG HCO3 23.5 VBG Total CO2 29.7 H VBG O2 Sat (Calc) 58.3 VBG Base Excess 0.1 VBG Potassium 4.1 A-a O2 Difference Respiratory Index Glucose > 750 H* D Lactate 1.0 Liter Flow FiO2 Inspiratory BiPAP Expiratory BiPAP Crit Value Called To Richard pinto icu Crit Value Called By Kathleen Crit Value Read Back N Blood Gas Notified Time 2308 Sodium 129.0 L Potassium Chloride 92.0 L Carbon Dioxide Anion Gap BUN Creatinine Est GFR ( Amer) Est GFR (Non-Af Amer) POC Glucose (mg/dL) Random Glucose Hemoglobin A1c 6.8 H Calcium Magnesium Total Bilirubin AST ALT Alkaline Phosphatase Total Creatine Kinase 131 CK-MB (Mass) 3.66 H Troponin I Troponin I, Quant 0.1250 H* NT-Pro-B Natriuret Pep Total Protein Albumin Globulin Albumin/Globulin Ratio Vitamin B12 TSH 3rd Generation Prolactin Arterial Blood Potassium Venous Blood Potassium 4.1 Urine Color Urine Clarity Urine pH Ur Specific [place] Urine Protein Urine Glucose (UA) Urine Ketones Urine Blood Urine Nitrate Urine Bilirubin Urine Urobilinogen Ur Leukocyte Esterase Urine WBC (Auto) Urine RBC (Auto) Urine Bacteria Hyaline Casts Ur Random Creatinine U Random Total Protein 07/02/17 07/02/17 07/02/17 23:23 23:23 23:42 WBC RBC Hgb Hct MCV MCH MCHC RDW Plt Count MPV Neut % (Auto) Lymph % (Auto) [place] % (Auto) Eos % (Auto) Baso % (Auto) Neut # Lymph # [place] # Eos # Baso # Neutrophils % (Manual) Band Neutrophils % Lymphocytes % (Manual) Monocytes % (Manual) Platelet Estimate Large Platelets Giant Platelets Hypochromasia (manual) Poikilocytosis (manual Anisocytosis (manual) PT INR APTT Puncture Site pCO2 pO2 HCO3 ABG pH ABG Total CO2 ABG O2 Saturation ABG Base Excess Luis Carlos Test ABG Potassium VBG pH VBG pCO2 VBG HCO3 VBG Total CO2 VBG O2 Sat (Calc) VBG Base Excess VBG Potassium A-a O2 Difference Respiratory Index Glucose Lactate Liter Flow FiO2 Inspiratory BiPAP Expiratory BiPAP Crit Value Called To Crit Value Called By Crit Value Read Back Blood Gas Notified Time Sodium Potassium Chloride Carbon Dioxide Anion Gap BUN Creatinine Est GFR ( Amer) Est GFR (Non-Af Amer) POC Glucose (mg/dL) 75 Random Glucose Hemoglobin A1c Calcium Magnesium Total Bilirubin AST ALT Alkaline Phosphatase Total Creatine Kinase CK-MB (Mass) Troponin I Troponin I, Quant NT-Pro-B Natriuret Pep Total Protein Albumin Globulin Albumin/Globulin Ratio Vitamin B12 TSH 3rd Generation Prolactin Arterial Blood Potassium Venous Blood Potassium Urine Color Urine Clarity Urine pH Ur Specific [place] Urine Protein Urine Glucose (UA) Urine Ketones Urine Blood Urine Nitrate Urine Bilirubin Urine Urobilinogen Ur Leukocyte Esterase Urine WBC (Auto) Urine RBC (Auto) Urine Bacteria Hyaline Casts Ur Random Creatinine 118.6 U Random Total Protein Cancelled 434.0 H 07/03/17 07/03/17 07/03/17 02:17 04:18 06:04 WBC RBC Hgb Hct MCV MCH MCHC RDW Plt Count MPV Neut % (Auto) Lymph % (Auto) [place] % (Auto) Eos % (Auto) Baso % (Auto) Neut # Lymph # [place] # Eos # Baso # Neutrophils % (Manual) Band Neutrophils % Lymphocytes % (Manual) Monocytes % (Manual) Platelet Estimate Large Platelets Giant Platelets Hypochromasia (manual) Poikilocytosis (manual Anisocytosis (manual) PT INR APTT Puncture Site pCO2 pO2 HCO3 ABG pH ABG Total CO2 ABG O2 Saturation ABG Base Excess Luis Carlos Test ABG Potassium VBG pH VBG pCO2 VBG HCO3 VBG Total CO2 VBG O2 Sat (Calc) VBG Base Excess VBG Potassium A-a O2 Difference Respiratory Index Glucose Lactate Liter Flow FiO2 Inspiratory BiPAP Expiratory BiPAP Crit Value Called To Crit Value Called By Crit Value Read Back Blood Gas Notified Time Sodium Potassium Chloride Carbon Dioxide Anion Gap BUN Creatinine Est GFR ( Amer) Est GFR (Non-Af Amer) POC Glucose (mg/dL) 89 123 H Random Glucose Hemoglobin A1c Calcium Magnesium Total Bilirubin AST ALT Alkaline Phosphatase Total Creatine Kinase 107 CK-MB (Mass) 3.76 H Troponin I Troponin I, Quant 0.1030 NT-Pro-B Natriuret Pep Total Protein Albumin Globulin Albumin/Globulin Ratio Vitamin B12 TSH 3rd Generation Prolactin Arterial Blood Potassium Venous Blood Potassium Urine Color Urine Clarity Urine pH Ur Specific [place] Urine Protein Urine Glucose (UA) Urine Ketones Urine Blood Urine Nitrate Urine Bilirubin Urine Urobilinogen Ur Leukocyte Esterase Urine WBC (Auto) Urine RBC (Auto) Urine Bacteria Hyaline Casts Ur Random Creatinine U Random Total Protein 07/03/17 07/03/17 07/03/17 06:04 06:04 06:17 WBC 10.3 RBC 4.09 L Hgb 11.3 L Hct 35.8 MCV 87.6 MCH 27.6 MCHC 31.5 L RDW 18.3 H Plt Count 246 MPV 8.4 Neut % (Auto) 92.3 H Lymph % (Auto) 5.8 L [place] % (Auto) 1.5 Eos % (Auto) 0.1 Baso % (Auto) 0.3 Neut # 9.5 H Lymph # 0.6 L [place] # 0.2 Eos # 0.0 Baso # 0.0 Neutrophils % (Manual) 90 H Band Neutrophils % 5 H Lymphocytes % (Manual) 4 L Monocytes % (Manual) 1 Platelet Estimate Normal Large Platelets Present Giant Platelets Present Hypochromasia (manual) Slight Poikilocytosis (manual Slight Anisocytosis (manual) Slight PT INR APTT Puncture Site pCO2 pO2 HCO3 ABG pH ABG Total CO2 ABG O2 Saturation ABG Base Excess Luis Carlos Test ABG Potassium VBG pH VBG pCO2 VBG HCO3 VBG Total CO2 VBG O2 Sat (Calc) VBG Base Excess VBG Potassium A-a O2 Difference Respiratory Index Glucose Lactate Liter Flow FiO2 Inspiratory BiPAP Expiratory BiPAP Crit Value Called To Crit Value Called By Crit Value Read Back Blood Gas Notified Time Sodium 137 Potassium 4.3 Chloride 99 Carbon Dioxide 28 Anion Gap 14 BUN 29 H Creatinine 1.8 H Est GFR ( Amer) 46 Est GFR (Non-Af Amer) 38 POC Glucose (mg/dL) 131 H Random Glucose 121 H Hemoglobin A1c Calcium 8.6 Magnesium 2.1 Total Bilirubin 0.6 AST 33 ALT 70 Alkaline Phosphatase 95 Total Creatine Kinase CK-MB (Mass) Troponin I Troponin I, Quant NT-Pro-B Natriuret Pep Total Protein 7.6 Albumin 3.3 L Globulin 4.2 H Albumin/Globulin Ratio 0.8 L Vitamin B12 478 TSH 3rd Generation 0.65 Prolactin Arterial Blood Potassium Venous Blood Potassium Urine Color Urine Clarity Urine pH Ur Specific [place] Urine Protein Urine Glucose (UA) Urine Ketones Urine Blood Urine Nitrate Urine Bilirubin Urine Urobilinogen Ur Leukocyte Esterase Urine WBC (Auto) Urine RBC (Auto) Urine Bacteria Hyaline Casts Ur Random Creatinine U Random Total Protein 07/03/17 07/03/17 07/03/17 07:42 08:07 08:14 WBC RBC Hgb Hct MCV MCH MCHC RDW Plt Count MPV Neut % (Auto) Lymph % (Auto) [place] % (Auto) Eos % (Auto) Baso % (Auto) Neut # Lymph # [place] # Eos # Baso # Neutrophils % (Manual) Band Neutrophils % Lymphocytes % (Manual) Monocytes % (Manual) Platelet Estimate Large Platelets Giant Platelets Hypochromasia (manual) Poikilocytosis (manual Anisocytosis (manual) PT INR APTT Puncture Site Rr pCO2 55 H pO2 85 HCO3 26.4 ABG pH 7.33 L ABG Total CO2 30.7 H ABG O2 Saturation 97.2 ABG Base Excess 1.9 Luis Carlos Test Pos ABG Potassium 4.3 VBG pH VBG pCO2 VBG HCO3 VBG Total CO2 VBG O2 Sat (Calc) VBG Base Excess VBG Potassium A-a O2 Difference 39.0 Respiratory Index 0.5 Glucose 232 H Lactate 0.5 L Liter Flow 2.0 FiO2 27.0 Inspiratory BiPAP Expiratory BiPAP Crit Value Called To Crit Value Called By Crit Value Read Back Blood Gas Notified Time Sodium 135.0 Potassium Chloride 106.0 Carbon Dioxide Anion Gap BUN Creatinine Est GFR ( Amer) Est GFR (Non-Af Amer) POC Glucose (mg/dL) 238 H Random Glucose Hemoglobin A1c Calcium Magnesium Total Bilirubin AST ALT Alkaline Phosphatase Total Creatine Kinase CK-MB (Mass) Troponin I Troponin I, Quant NT-Pro-B Natriuret Pep Total Protein Albumin Globulin Albumin/Globulin Ratio Vitamin B12 TSH 3rd Generation Prolactin 7.1 Arterial Blood Potassium 4.3 Venous Blood Potassium Urine Color Urine Clarity Urine pH Ur Specific [place] Urine Protein Urine Glucose (UA) Urine Ketones Urine Blood Urine Nitrate Urine Bilirubin Urine Urobilinogen Ur Leukocyte Esterase Urine WBC (Auto) Urine RBC (Auto) Urine Bacteria Hyaline Casts Ur Random Creatinine U Random Total Protein EKG/Cardiology Studies: Cardiology / EKG Studies 07/02/17 14:57 ELECTROCARDIOGRAM Stat Comment: Mode Of Transportation: BED Reason For Exam: SOB 07/03/17 00:35 EKG [ELECTROCARDIOGRAM] Routine Comment: Mode Of Transportation: PORTABLE Reason For Exam: CHEST PAIN Fingerstick Blood Sugar Results: 238 Review of Systems - Review of Systems Review of Systems: Unable to evaluate as patient is very lethargic and waxing and waning. Critical Care Progress Note - Nutrition Nutrition: Nutrition Category Date Time Status Diabetic [Consistent Carbohydrate] [DIET] Diets 07/03/17 Breakfast Active Assessment/Plan - Assessment and Plan (Free Text) Assessment: 67 M with past medical history of for Diabetes, CAD, CABG, Hypercholesterolemia , and TIA, who was noted by his to be lethargic, peripheral edema, difficulty with breathing. Patient was seen by his PMD, who referred him to an urgent care or ER. Patient was found to be hypertensive, lethargic hypoglycemic , with retaining CO2, needing very minimal O2. Today: Plan: Aspiration precautions and bipap Plan: Neuro: Lethargic Cardio: Hypertensive, CHF exacerbation, Hx of CAD/CABG, HLD Mildly elevated Troponin I: 0.1250--->0.1030--->0.1320 Supervisor Ditching Consult, Dr. Butler----> Help appreciated Medication/Management: * Lopressor 25mg PO BID * Hydralazine 10mg IVP Q6H (Hold with SBP <120mm Hg) * Crestor 10mg PO HS Pulm: Respiratory distress secondary to possible CHF exacerbatio n Chest X-ray (07/02/17): Interstitial prominence may reflect infection or edema. Small bilateral pleural effusions. Mild biapical pleural thickening. Medication/Management: * Bipap * Lasix 40mg IVP Q12 GI: No acute issues Endo: Hx of Diabetes Medication/Management: * Accuchecks * ISS (Medium dose protocol) MSK: Hx of Gout Medication/Management: * Allopurinol 100mg PO daily Prophylaxis: DVT: SCDS contraindicated due to B/L LE edema. Heparin 5,000 units SC Q12H GI: Pepcid 20mg IVP daily NPO Aspiration precautions <Hever Dorantes - Last Filed: 07/08/17 00:20> CCU Objective - Vital Signs / Intake & Output Vital Signs (Last 4 hours): Vital Signs Temp Pulse BP Pulse Ox 07/08/17 00:00 98.6 F 85 100 07/07/17 23:48 78 111/60 99 07/07/17 23:00 77 100 07/07/17 22:48 73 113/65 100 10/17/17 22:00 77 100 07/07/17 21:49 75 110/64 07/07/17 21:00 76 100 07/07/17 20:49 75 129/69 100 Intake and Output (Last 8hrs): Intake & Output 07/07/17 07/07/17 07/08/17 14:59 22:59 06:59 Intake Total 527.6 444.4 223.6 Output Total 435 335 40 Balance 92.6 109.4 183.6 Intake: IV 200 100 100 Intake, IV Amount 167.6 184.4 83.6 Left hand # 2 167.6 16.8 Right Distal Port 117.6 33.6 Internal Jugular Right Medial Port 50 50 Internal Jugular Tube Feeding 160 160 40 Output: Urine 435 335 40 Urethral ([place]) 435 335 40 - Medications Active Medications: Active Medications Generic Name Dose Route Start Last Admin Trade Name Freq PRN Reason Stop Dose Admin Acetaminophen 650 mg 07/05/17 16:02 07/06/17 11:58 Tylenol 650mg/20.3ml Solution Ud PO 650 mg Q6 PRN Administration Fever 100.6 and above Aspirin 81 mg 07/07/17 10:00 07/07/17 10:16 Aspirin Chewable PO 81 mg DAILY RANDOLPH Administration Epoetin Pieter 10,000 unit 07/07/17 10:00 07/07/17 10:20 Procrit SC 10,000 unit TTS RANDOLPH Administration Famotidine 20 mg 07/03/17 11:00 07/07/17 10:17 Pepcid IVP 20 mg DAILY RANDOLPH Administration Ferric Sodium Gluconate Complex 125 mg 07/07/17 23:20 07/07/17 23:52 Ferrlecit IVPB 07/15/17 23:21 125 mg DAILY RANDOLPH Administration Heparin Sodium (Porcine) 5,000 units 07/05/17 22:00 07/07/17 21:35 Heparin SC 5,000 units Q12 RANDOLPH Administration Hydralazine HCl 10 mg 07/03/17 11:04 07/07/17 22:48 Apresoline IVP 10 mg Q6H RANDOLPH Administration Piperacillin Sod/Tazobactam Sod 2.25 gm in 50 mls @ 100 mls/hr 07/05/17 17:15 07/07/17 22:48 Zosyn 2.25 Gm Iv Premix IVPB 100 mls/hr Q6H RANDOLPH Administration Propofol 1,000 mg in 100 mls @ 2.79 mls/hr 07/06/17 16:13 07/07/17 23:53 Diprivan IV 30 mcg/kg/min .Q24H PRN 16.737 mls/hr TITRATE PER MD ORDER Administration Protocol 5 MCG/KG/MIN Insulin Human Regular 0 unit 07/05/17 18:00 07/07/17 23:53 Novolin R SC 1 unit Q6H RANDOLPH Administration Protocol Losartan Potassium 50 mg 07/05/17 10:00 07/06/17 09:34 Cozaar PO 50 mg BID RANDOLPH Administration Metoprolol Tartrate 25 mg 07/03/17 10:00 07/07/17 18:13 Lopressor PO 25 mg BID RANDOLPH Administration Rosuvastatin Calcium 10 mg 07/03/17 22:00 07/07/17 22:48 Crestor PO 10 mg HS RANDOLPH Administration Vitamin B Complex/Vit C/Folic Acid 1 tab 07/07/17 10:00 07/07/17 12:41 Nephro-Lc PO 1 tab 0800 RANDOLPH Administration - Patient Studies Lab Studies: Microbiology Studies 07/02/17 23:00 Blood Culture - Final Blood-Venous NO GROWTH AFTER 5 DAYS Gram Stain - Final TEST NOT PERFORMED 07/02/17 22:45 Blood Culture - Final Blood-Venous NO GROWTH AFTER 5 DAYS Gram Stain - Final TEST NOT PERFORMED 07/05/17 16:00 Blood Culture - Preliminary Blood-Venous NO GROWTH AFTER 48 HOURS 07/05/17 15:45 Blood Culture - Preliminary Blood-Venous NO GROWTH AFTER 48 HOURS 07/05/17 16:04 Urine Culture - Preliminary Urine,[place] Gram Positive Cocci 07/05/17 16:04 Gram Stain - Final Trachasp Sputum Culture - Final NORMAL ORAL RICK Lab Studies 07/07/17 07/07/17 07/07/17 Range/Units 23:41 17:43 15:07 WBC (4.8-10.8) K/uL RBC (4.40-5.90) Mil/uL Hgb (12.0-18.0) g/dL Hct (35.0-51.0) % MCV (80.0-94.0) fL MCH (27.0-31.0) pg MCHC (33.0-37.0) g/dL RDW (11.5-14.5) % Plt Count (130-400) K/uL MPV (7.2-11.7) fL Neut % (Auto) (50.0-75.0) % Lymph % (Auto) (20.0-40.0) % [place] % (Auto) (0.0-10.0) % Eos % (Auto) (0.0-4.0) % Baso % (Auto) (0.0-2.0) % Neut # (1.8-7.0) K/uL Lymph # (1.0-4.3) K/uL [place] # (0.0-0.8) K/uL Eos # (0.0-0.7) K/uL Baso # (0.0-0.2) K/uL Neutrophils % (Manual) (50-75) % Lymphocytes % (Manual) (20-40) % Monocytes % (Manual) (0-10) % Eosinophils % (Manual) (0-4) % Platelet Estimate (NORMAL) Polychromasia Hypochromasia (manual) Anisocytosis (manual) Puncture Site pCO2 (35-45) mm/Hg pO2 (80-100) mm/Hg HCO3 (21-28) mmol/L ABG pH (7.35-7.45) ABG Total CO2 (22-28) mmol/L ABG O2 Saturation (95-98) % ABG Base Excess (-2.0-3.0) mmol/L ABG Hemoglobin (11.7-17.4) g/dL ABG Carboxyhemoglobin (0.5-1.5) % POC ABG HHb (Measured) (0.0-5.0) % ABG Methemoglobin (0.0-3.0) % Luis Carlos Test A-a O2 Difference mm/Hg Respiratory Index Hgb O2 Saturation (95.0-98.0) % Vent Mode Mechanical Rate FiO2 % Tidal Volume PEEP Crit Value Called To Crit Value Called By Crit Value Read Back Blood Gas Notified Time Sodium (132-148) mmol/L Potassium (3.6-5.2) mmol/L Chloride (98-107) mmol/L Carbon Dioxide (22-30) mmol/L Anion Gap (10-20) BUN (9-20) mg/dL Creatinine (0.8-1.5) mg/dL Est GFR ( Amer) Est GFR (Non-Af Amer) POC Glucose (mg/dL) 155 H 141 H (65-110) mg/dL Random Glucose (75-110) mg/dL Calcium (8.6-10.4) mg/dl Phosphorus (2.5-4.5) mg/dL Magnesium (1.6-2.3) mg/dL Iron (49-181) ug/dL TIBC (250-450) ug/dL % Saturation (20-55) Ferritin ng/mL Total Bilirubin (0.2-1.3) mg/dL AST (17-59) U/L ALT (21-72) U/L Alkaline Phosphatase (38-126) U/L Total Protein (6.3-8.3) g/dL Albumin (3.5-5.0) g/dL Globulin (2.2-3.9) gm/dL Albumin/Globulin Ratio Jhssq-7-Zwdgdkekv Relative % Peivi-7-Cstglniia Relative % Beta Globulins Relative % Gamma Globulins Relative % Ur Random Creatinine (20-370) mg/dL U Random Total Protein (22-128) mg/g creat Urine Chloride (32-290) mmol/L Urine Albumin (PEP) Relative % Ur Protein Fractions Blood Type B POSITIVE Antibody Screen Negative 07/07/17 07/07/17 07/07/17 Range/Units 15:07 15:07 11:40 WBC (4.8-10.8) K/uL RBC (4.40-5.90) Mil/uL Hgb (12.0-18.0) g/dL Hct (35.0-51.0) % MCV (80.0-94.0) fL MCH (27.0-31.0) pg MCHC (33.0-37.0) g/dL RDW (11.5-14.5) % Plt Count (130-400) K/uL MPV (7.2-11.7) fL Neut % (Auto) (50.0-75.0) % Lymph % (Auto) (20.0-40.0) % [place] % (Auto) (0.0-10.0) % Eos % (Auto) (0.0-4.0) % Baso % (Auto) (0.0-2.0) % Neut # (1.8-7.0) K/uL Lymph # (1.0-4.3) K/uL [place] # (0.0-0.8) K/uL Eos # (0.0-0.7) K/uL Baso # (0.0-0.2) K/uL Neutrophils % (Manual) (50-75) % Lymphocytes % (Manual) (20-40) % Monocytes % (Manual) (0-10) % Eosinophils % (Manual) (0-4) % Platelet Estimate (NORMAL) Polychromasia Hypochromasia (manual) Anisocytosis (manual) Puncture Site Rr pCO2 39 (35-45) mm/Hg pO2 184 H (80-100) mm/Hg HCO3 30.1 H (21-28) mmol/L ABG pH 7.50 H (7.35-7.45) ABG Total CO2 31.6 H (22-28) mmol/L ABG O2 Saturation 99.2 H (95-98) % ABG Base Excess 6.7 H (-2.0-3.0) mmol/L ABG Hemoglobin 10.4 L (11.7-17.4) g/dL ABG Carboxyhemoglobin 2.1 H (0.5-1.5) % POC ABG HHb (Measured) 0.8 (0.0-5.0) % ABG Methemoglobin 1.3 (0.0-3.0) % Luis Carlos Test Pos A-a O2 Difference 124.0 mm/Hg Respiratory Index 0.7 Hgb O2 Saturation 95.8 (95.0-98.0) % Vent Mode Prvc Mechanical Rate 12 FiO2 50.0 % Tidal Volume 450 PEEP 5 Crit Value Called To Crit Value Called By Crit Value Read Back Blood Gas Notified Time Sodium (132-148) mmol/L Potassium (3.6-5.2) mmol/L Chloride (98-107) mmol/L Carbon Dioxide (22-30) mmol/L Anion Gap (10-20) BUN (9-20) mg/dL Creatinine (0.8-1.5) mg/dL Est GFR ( Amer) Est GFR (Non-Af Amer) POC Glucose (mg/dL) (65-110) mg/dL Random Glucose (75-110) mg/dL Calcium (8.6-10.4) mg/dl Phosphorus (2.5-4.5) mg/dL Magnesium (1.6-2.3) mg/dL Iron 12 L (49-181) ug/dL TIBC 208 L (250-450) ug/dL % Saturation 6 L (20-55) Ferritin 368.0 ng/mL Total Bilirubin (0.2-1.3) mg/dL AST (17-59) U/L ALT (21-72) U/L Alkaline Phosphatase (38-126) U/L Total Protein (6.3-8.3) g/dL Albumin (3.5-5.0) g/dL Globulin (2.2-3.9) gm/dL Albumin/Globulin Ratio Yiuvi-6-Fyyontvrk Relative % Rymol-7-Vwpoupgnw Relative % Beta Globulins Relative % Gamma Globulins Relative % Ur Random Creatinine (20-370) mg/dL U Random Total Protein (22-128) mg/g creat Urine Chloride (32-290) mmol/L Urine Albumin (PEP) Relative % Ur Protein Fractions Blood Type Antibody Screen 07/07/17 07/07/17 07/07/17 Range/Units 11:21 06:20 06:20 WBC 9.6 (4.8-10.8) K/uL RBC 3.20 L (4.40-5.90) Mil/uL Hgb 8.8 L (12.0-18.0) g/dL Hct 27.5 L (35.0-51.0) % MCV 86.0 (80.0-94.0) fL MCH 27.6 (27.0-31.0) pg MCHC 32.1 L (33.0-37.0) g/dL RDW 18.7 H (11.5-14.5) % Plt Count 190 (130-400) K/uL MPV 8.6 (7.2-11.7) fL Neut % (Auto) 84.9 H (50.0-75.0) % Lymph % (Auto) 8.5 L (20.0-40.0) % [place] % (Auto) 5.0 (0.0-10.0) % Eos % (Auto) 1.4 (0.0-4.0) % Baso % (Auto) 0.2 (0.0-2.0) % Neut # 8.1 H (1.8-7.0) K/uL Lymph # 0.8 L (1.0-4.3) K/uL [place] # 0.5 (0.0-0.8) K/uL Eos # 0.1 (0.0-0.7) K/uL Baso # 0.0 (0.0-0.2) K/uL Neutrophils % (Manual) 90 H (50-75) % Lymphocytes % (Manual) 5 L (20-40) % Monocytes % (Manual) 4 (0-10) % Eosinophils % (Manual) 1 (0-4) % Platelet Estimate Normal (NORMAL) Polychromasia Slight Hypochromasia (manual) Slight Anisocytosis (manual) Slight Puncture Site pCO2 (35-45) mm/Hg pO2 (80-100) mm/Hg HCO3 (21-28) mmol/L ABG pH (7.35-7.45) ABG Total CO2 (22-28) mmol/L ABG O2 Saturation (95-98) % ABG Base Excess (-2.0-3.0) mmol/L ABG Hemoglobin (11.7-17.4) g/dL ABG Carboxyhemoglobin (0.5-1.5) % POC ABG HHb (Measured) (0.0-5.0) % ABG Methemoglobin (0.0-3.0) % Luis Carlos Test A-a O2 Difference mm/Hg Respiratory Index Hgb O2 Saturation (95.0-98.0) % Vent Mode Mechanical Rate FiO2 % Tidal Volume PEEP Crit Value Called To Crit Value Called By Crit Value Read Back Blood Gas Notified Time Sodium 135 (132-148) mmol/L Potassium 3.5 L (3.6-5.2) mmol/L Chloride 99 (98-107) mmol/L Carbon Dioxide 27 (22-30) mmol/L Anion Gap 13 (10-20) BUN 45 H (9-20) mg/dL Creatinine 2.6 H (0.8-1.5) mg/dL Est GFR ( Amer) 30 Est GFR (Non-Af Amer) 25 POC Glucose (mg/dL) 155 H (65-110) mg/dL Random Glucose 143 H (75-110) mg/dL Calcium 7.9 L (8.6-10.4) mg/dl Phosphorus 4.4 (2.5-4.5) mg/dL Magnesium 2.4 H (1.6-2.3) mg/dL Iron (49-181) ug/dL TIBC (250-450) ug/dL % Saturation (20-55) Ferritin ng/mL Total Bilirubin 0.9 (0.2-1.3) mg/dL AST 16 L D (17-59) U/L ALT 27 (21-72) U/L Alkaline Phosphatase 87 (38-126) U/L Total Protein 6.2 L (6.3-8.3) g/dL Albumin 2.6 L (3.5-5.0) g/dL Globulin 3.6 (2.2-3.9) gm/dL Albumin/Globulin Ratio 0.7 L Nfrij-8-Tlrwfqkay Relative % [place]-9-Ruqnwajcj Relative % Beta Globulins Relative % Gamma Globulins Relative % Ur Random Creatinine (20-370) mg/dL U Random Total Protein (22-128) mg/g creat Urine Chloride (32-290) mmol/L Urine Albumin (PEP) Relative % Ur Protein Fractions Blood Type Antibody Screen 07/07/17 07/07/17 07/07/17 Range/Units 05:55 05:29 00:09 WBC (4.8-10.8) K/uL RBC (4.40-5.90) Mil/uL Hgb (12.0-18.0) g/dL Hct (35.0-51.0) % MCV (80.0-94.0) fL MCH (27.0-31.0) pg MCHC (33.0-37.0) g/dL RDW (11.5-14.5) % Plt Count (130-400) K/uL MPV (7.2-11.7) fL Neut % (Auto) (50.0-75.0) % Lymph % (Auto) (20.0-40.0) % [place] % (Auto) (0.0-10.0) % Eos % (Auto) (0.0-4.0) % Baso % (Auto) (0.0-2.0) % Neut # (1.8-7.0) K/uL Lymph # (1.0-4.3) K/uL [place] # (0.0-0.8) K/uL Eos # (0.0-0.7) K/uL Baso # (0.0-0.2) K/uL Neutrophils % (Manual) (50-75) % Lymphocytes % (Manual) (20-40) % Monocytes % (Manual) (0-10) % Eosinophils % (Manual) (0-4) % Platelet Estimate (NORMAL) Polychromasia Hypochromasia (manual) Anisocytosis (manual) Puncture Site R rad pCO2 19 L* (35-45) mm/Hg pO2 181 H (80-100) mm/Hg HCO3 20.3 L (21-28) mmol/L ABG pH 7.54 H (7.35-7.45) ABG Total CO2 16.8 L (22-28) mmol/L ABG O2 Saturation 99.6 H (95-98) % ABG Base Excess -6.0 L (-2.0-3.0) mmol/L ABG Hemoglobin 5.3 L (11.7-17.4) g/dL ABG Carboxyhemoglobin 2.1 H (0.5-1.5) % POC ABG HHb (Measured) 0.4 (0.0-5.0) % ABG Methemoglobin 1.2 (0.0-3.0) % Luis Carlos Test Pos A-a O2 Difference 152.0 mm/Hg Respiratory Index 0.8 Hgb O2 Saturation 96.3 (95.0-98.0) % Vent Mode Prvc Mechanical Rate 16 FiO2 50.0 % Tidal Volume 500 PEEP 5 Crit Value Called To Jacklyn mari agricultural engineering technician Crit Value Called By Tiffanie benito rt Crit Value Read Back Y Blood Gas Notified Time 545 Sodium (132-148) mmol/L Potassium (3.6-5.2) mmol/L Chloride (98-107) mmol/L Carbon Dioxide (22-30) mmol/L Anion Gap (10-20) BUN (9-20) mg/dL Creatinine (0.8-1.5) mg/dL Est GFR ( Amer) Est GFR (Non-Af Amer) POC Glucose (mg/dL) 163 H 137 H (65-110) mg/dL Random Glucose (75-110) mg/dL Calcium (8.6-10.4) mg/dl Phosphorus (2.5-4.5) mg/dL Magnesium (1.6-2.3) mg/dL Iron (49-181) ug/dL TIBC (250-450) ug/dL % Saturation (20-55) Ferritin ng/mL Total Bilirubin (0.2-1.3) mg/dL AST (17-59) U/L ALT (21-72) U/L Alkaline Phosphatase (38-126) U/L Total Protein (6.3-8.3) g/dL Albumin (3.5-5.0) g/dL Globulin (2.2-3.9) gm/dL Albumin/Globulin Ratio Frqrk-4-Mbidxikzh Relative % Skdjb-4-Lmpselxyk Relative % Beta Globulins Relative % Gamma Globulins Relative % Ur Random Creatinine (20-370) mg/dL U Random Total Protein (22-128) mg/g creat Urine Chloride (32-290) mmol/L Urine Albumin (PEP) Relative % Ur Protein Fractions Blood Type Antibody Screen 07/05/17 07/05/17 Range/Units 06:26 06:26 WBC (4.8-10.8) K/uL RBC (4.40-5.90) Mil/uL Hgb (12.0-18.0) g/dL Hct (35.0-51.0) % MCV (80.0-94.0) fL MCH (27.0-31.0) pg MCHC (33.0-37.0) g/dL RDW (11.5-14.5) % Plt Count (130-400) K/uL MPV (7.2-11.7) fL Neut % (Auto) (50.0-75.0) % Lymph % (Auto) (20.0-40.0) % [place] % (Auto) (0.0-10.0) % Eos % (Auto) (0.0-4.0) % Baso % (Auto) (0.0-2.0) % Neut # (1.8-7.0) K/uL Lymph # (1.0-4.3) K/uL [place] # (0.0-0.8) K/uL Eos # (0.0-0.7) K/uL Baso # (0.0-0.2) K/uL Neutrophils % (Manual) (50-75) % Lymphocytes % (Manual) (20-40) % Monocytes % (Manual) (0-10) % Eosinophils % (Manual) (0-4) % Platelet Estimate (NORMAL) Polychromasia Hypochromasia (manual) Anisocytosis (manual) Puncture Site pCO2 (35-45) mm/Hg pO2 (80-100) mm/Hg HCO3 (21-28) mmol/L ABG pH (7.35-7.45) ABG Total CO2 (22-28) mmol/L ABG O2 Saturation (95-98) % ABG Base Excess (-2.0-3.0) mmol/L ABG Hemoglobin (11.7-17.4) g/dL ABG Carboxyhemoglobin (0.5-1.5) % POC ABG HHb (Measured) (0.0-5.0) % ABG Methemoglobin (0.0-3.0) % Luis Carlos Test A-a O2 Difference mm/Hg Respiratory Index Hgb O2 Saturation (95.0-98.0) % Vent Mode Mechanical Rate FiO2 % Tidal Volume PEEP Crit Value Called To Crit Value Called By Crit Value Read Back Blood Gas Notified Time Sodium (132-148) mmol/L Potassium (3.6-5.2) mmol/L Chloride (98-107) mmol/L Carbon Dioxide (22-30) mmol/L Anion Gap (10-20) BUN (9-20) mg/dL Creatinine (0.8-1.5) mg/dL Est GFR ( Amer) Est GFR (Non-Af Amer) POC Glucose (mg/dL) (65-110) mg/dL Random Glucose (75-110) mg/dL Calcium (8.6-10.4) mg/dl Phosphorus (2.5-4.5) mg/dL Magnesium (1.6-2.3) mg/dL Iron (49-181) ug/dL TIBC (250-450) ug/dL % Saturation (20-55) Ferritin ng/mL Total Bilirubin (0.2-1.3) mg/dL AST (17-59) U/L ALT (21-72) U/L Alkaline Phosphatase (38-126) U/L Total Protein (6.3-8.3) g/dL Albumin (3.5-5.0) g/dL Globulin (2.2-3.9) gm/dL Albumin/Globulin Ratio 1.50 Vasct-5-Wdpuvvlye 6.4 Relative % Pjfmw-6-Kvpoxdrum 7.1 Relative % Beta Globulins 12.7 Relative % Gamma Globulins 13.8 Relative % Ur Random Creatinine 66 (20-370) mg/dL U Random Total Protein 1641 H (22-128) mg/g creat Urine Chloride 79 (32-290) mmol/L Urine Albumin (PEP) 60.1 Relative % Ur Protein Fractions See note Blood Type Antibody Screen Laboratory Results - last 24 hr 07/05/17 07/05/17 07/07/17 06:26 06:26 00:09 WBC RBC Hgb Hct MCV MCH MCHC RDW Plt Count MPV Neut % (Auto) Lymph % (Auto) [place] % (Auto) Eos % (Auto) Baso % (Auto) Neut # Lymph # [place] # Eos # Baso # Neutrophils % (Manual) Lymphocytes % (Manual) Monocytes % (Manual) Eosinophils % (Manual) Platelet Estimate Polychromasia Hypochromasia (manual) Anisocytosis (manual) Puncture Site pCO2 pO2 HCO3 ABG pH ABG Total CO2 ABG O2 Saturation ABG Base Excess ABG Hemoglobin ABG Carboxyhemoglobin POC ABG HHb (Measured) ABG Methemoglobin Luis Carlos Test A-a O2 Difference Respiratory Index Hgb O2 Saturation Vent Mode Mechanical Rate FiO2 Tidal Volume PEEP Crit Value Called To Crit Value Called By Crit Value Read Back Blood Gas Notified Time Sodium Potassium Chloride Carbon Dioxide Anion Gap BUN Creatinine Est GFR ( Amer) Est GFR (Non-Af Amer) POC Glucose (mg/dL) 137 H Random Glucose Calcium Phosphorus Magnesium Iron TIBC % Saturation Ferritin Total Bilirubin AST ALT Alkaline Phosphatase Total Protein Albumin Globulin Albumin/Globulin Ratio 1.50 Vewhe-3-Xsbbfuqut 6.4 Mrwyt-0-Ortyfhibu 7.1 Beta Globulins 12.7 Gamma Globulins 13.8 Ur Random Creatinine 66 U Random Total Protein 1641 H Urine Chloride 79 Urine Albumin (PEP) 60.1 Ur Protein Fractions See note Blood Type Antibody Screen 07/07/17 07/07/17 07/07/17 05:29 05:55 06:20 WBC 9.6 RBC 3.20 L Hgb 8.8 L Hct 27.5 L MCV 86.0 MCH 27.6 MCHC 32.1 L RDW 18.7 H Plt Count 190 MPV 8.6 Neut % (Auto) 84.9 H Lymph % (Auto) 8.5 L [place] % (Auto) 5.0 Eos % (Auto) 1.4 Baso % (Auto) 0.2 Neut # 8.1 H Lymph # 0.8 L [place] # 0.5 Eos # 0.1 Baso # 0.0 Neutrophils % (Manual) 90 H Lymphocytes % (Manual) 5 L Monocytes % (Manual) 4 Eosinophils % (Manual) 1 Platelet Estimate Normal Polychromasia Slight Hypochromasia (manual) Slight Anisocytosis (manual) Slight Puncture Site R rad pCO2 19 L* pO2 181 H HCO3 20.3 L ABG pH 7.54 H ABG Total CO2 16.8 L ABG O2 Saturation 99.6 H ABG Base Excess -6.0 L ABG Hemoglobin 5.3 L ABG Carboxyhemoglobin 2.1 H POC ABG HHb (Measured) 0.4 ABG Methemoglobin 1.2 Luis Carlos Test Pos A-a O2 Difference 152.0 Respiratory Index 0.8 Hgb O2 Saturation 96.3 Vent Mode Prvc Mechanical Rate 16 FiO2 50.0 Tidal Volume 500 PEEP 5 Crit Value Called To Jacklyn mari agricultural engineering technician Crit Value Called By Tiffanie benito rt Crit Value Read Back Y Blood Gas Notified Time 545 Sodium Potassium Chloride Carbon Dioxide Anion Gap BUN Creatinine Est GFR ( Amer) Est GFR (Non-Af Amer) POC Glucose (mg/dL) 163 H Random Glucose Calcium Phosphorus Magnesium Iron TIBC % Saturation Ferritin Total Bilirubin AST ALT Alkaline Phosphatase Total Protein Albumin Globulin Albumin/Globulin Ratio Jgnrg-5-Zhaxmlueo Ufykm-2-Zfjutbbzs Beta Globulins Gamma Globulins Ur Random Creatinine U Random Total Protein Urine Chloride Urine Albumin (PEP) Ur Protein Fractions Blood Type Antibody Screen 07/07/17 07/07/17 07/07/17 06:20 11:21 11:40 WBC RBC Hgb Hct MCV MCH MCHC RDW Plt Count MPV Neut % (Auto) Lymph % (Auto) [place] % (Auto) Eos % (Auto) Baso % (Auto) Neut # Lymph # [place] # Eos # Baso # Neutrophils % (Manual) Lymphocytes % (Manual) Monocytes % (Manual) Eosinophils % (Manual) Platelet Estimate Polychromasia Hypochromasia (manual) Anisocytosis (manual) Puncture Site Rr pCO2 39 pO2 184 H HCO3 30.1 H ABG pH 7.50 H ABG Total CO2 31.6 H ABG O2 Saturation 99.2 H ABG Base Excess 6.7 H ABG Hemoglobin 10.4 L ABG Carboxyhemoglobin 2.1 H POC ABG HHb (Measured) 0.8 ABG Methemoglobin 1.3 Luis Carlos Test Pos A-a O2 Difference 124.0 Respiratory Index 0.7 Hgb O2 Saturation 95.8 Vent Mode Prvc Mechanical Rate 12 FiO2 50.0 Tidal Volume 450 PEEP 5 Crit Value Called To Crit Value Called By Crit Value Read Back Blood Gas Notified Time Sodium 135 Potassium 3.5 L Chloride 99 Carbon Dioxide 27 Anion Gap 13 BUN 45 H Creatinine 2.6 H Est GFR ( Amer) 30 Est GFR (Non-Af Amer) 25 POC Glucose (mg/dL) 155 H Random Glucose 143 H Calcium 7.9 L Phosphorus 4.4 Magnesium 2.4 H Iron TIBC % Saturation Ferritin Total Bilirubin 0.9 AST 16 L D ALT 27 Alkaline Phosphatase 87 Total Protein 6.2 L Albumin 2.6 L Globulin 3.6 Albumin/Globulin Ratio 0.7 L Egiox-0-Kjgqwtkhd Yfhaq-2-Nqgaeaurs Beta Globulins Gamma Globulins Ur Random Creatinine U Random Total Protein Urine Chloride Urine Albumin (PEP) Ur Protein Fractions Blood Type Antibody Screen 07/07/17 07/07/17 07/07/17 15:07 15:07 15:07 WBC RBC Hgb Hct MCV MCH MCHC RDW Plt Count MPV Neut % (Auto) Lymph % (Auto) [place] % (Auto) Eos % (Auto) Baso % (Auto) Neut # Lymph # [place] # Eos # Baso # Neutrophils % (Manual) Lymphocytes % (Manual) Monocytes % (Manual) Eosinophils % (Manual) Platelet Estimate Polychromasia Hypochromasia (manual) Anisocytosis (manual) Puncture Site pCO2 pO2 HCO3 ABG pH ABG Total CO2 ABG O2 Saturation ABG Base Excess ABG Hemoglobin ABG Carboxyhemoglobin POC ABG HHb (Measured) ABG Methemoglobin Luis Carlos Test A-a O2 Difference Respiratory Index Hgb O2 Saturation Vent Mode Mechanical Rate FiO2 Tidal Volume PEEP Crit Value Called To Crit Value Called By Crit Value Read Back Blood Gas Notified Time Sodium Potassium Chloride Carbon Dioxide Anion Gap BUN Creatinine Est GFR ( Amer) Est GFR (Non-Af Amer) POC Glucose (mg/dL) Random Glucose Calcium Phosphorus Magnesium Iron 12 L TIBC 208 L % Saturation 6 L Ferritin 368.0 Total Bilirubin AST ALT Alkaline Phosphatase Total Protein Albumin Globulin Albumin/Globulin Ratio [place]-2-Hgfbwzycq Ibldg-9-Idykuedrr Beta Globulins Gamma Globulins Ur Random Creatinine U Random Total Protein Urine Chloride Urine Albumin (PEP) Ur Protein Fractions Blood Type B POSITIVE Antibody Screen Negative 07/07/17 07/07/17 17:43 23:41 WBC RBC Hgb Hct MCV MCH MCHC RDW Plt Count MPV Neut % (Auto) Lymph % (Auto) [place] % (Auto) Eos % (Auto) Baso % (Auto) Neut # Lymph # [place] # Eos # Baso # Neutrophils % (Manual) Lymphocytes % (Manual) Monocytes % (Manual) Eosinophils % (Manual) Platelet Estimate Polychromasia Hypochromasia (manual) Anisocytosis (manual) Puncture Site pCO2 pO2 HCO3 ABG pH ABG Total CO2 ABG O2 Saturation ABG Base Excess ABG Hemoglobin ABG Carboxyhemoglobin POC ABG HHb (Measured) ABG Methemoglobin Luis Carlos Test A-a O2 Difference Respiratory Index Hgb O2 Saturation Vent Mode Mechanical Rate FiO2 Tidal Volume PEEP Crit Value Called To Crit Value Called By Crit Value Read Back Blood Gas Notified Time Sodium Potassium Chloride Carbon Dioxide Anion Gap BUN Creatinine Est GFR ( Amer) Est GFR (Non-Af Amer) POC Glucose (mg/dL) 141 H 155 H Random Glucose Calcium Phosphorus Magnesium Iron TIBC % Saturation Ferritin Total Bilirubin AST ALT Alkaline Phosphatase Total Protein Albumin Globulin Albumin/Globulin Ratio [place]-0-Swnlbtjud Jmgzr-9-Uqclnsvrx Beta Globulins Gamma Globulins Ur Random Creatinine U Random Total Protein Urine Chloride Urine Albumin (PEP) Ur Protein Fractions Blood Type Antibody Screen Critical Care Progress Note - Nutrition Nutrition: Nutrition Category Date Time Status NPO Diet [DIET] Diets 07/06/17 Breakfast Active Attending/Attestation - Attestation I have personally seen and examined this patient.: Yes I have fully participated in the care of the patient.: Yes I have reviewed all pertinent clinical information: Yes Notes (Text): 07/03/17 Today: Monday, July 03, 2017 The Patient was seen and examined at the bedside, Medical records reviewed, and management issues were discussed and formulated with the house staff. I have reviewed all the relevant clinical, laboratory, hemodynamic, radiographic data and medications Pain issues, skin care, head of the bed elevation, glycemic control were addressed. Continue current ICU management and hemodynamic monitoring. Antibiotics, steroids BIPAP, repeat ABG Cardiology and Pulmonary consult Diuresis B sugar control GI/DVT PPX Code status: Full code I concur with resident's assessment and plan of care as transcribed in Dr. Rodriguez note.
[2017-07-03 17:09] LABS: ABG ALLEN TEST PO; ARTERIAL BLOOD GAS MODE BiPAP; ARTERIAL BLOOD HGB O2 SAT 94.7 % (95.0-98.0); CARBOXYHEMOGLOBIN 2.8 % (0.5-1.5); DRAW SITE RR; HHB 1.2 % (0.0-5.0); METHEMOGLOBIN 1.2 % (0.0-3.0)
--- NOTE | 2017-07-03 18:23 | CP.PCM.CON ---
History of Present Illness - History of Present Illness History of Present Illness: Reason for consultation: Shortness of breath and change in mental status 67-year-old male with history of CVA, history of coronary artery disease status post CABG, diabetes, chronic renal insufficiency was brought in to ER for shortness of breath, generalized swelling and increasing lethargy. In the emergency room patient was found to be hypoglycemic, hypercapnic and hypotensive. Patient was placed on BiPAP and started on dextrose. Chest x-ray showed pulmonary edema. Patient was admitted to intensive care unit. Repeat ABG showed improving hypercapnia. Review of Systems - Review of Systems All systems: reviewed and no additional remarkable complaints except (Shortness of breath and change in mental status, generalized edema) Past Patient History - Infectious Disease Hx of Infectious Diseases: None - Past Medical History & Family History Past Medical History?: Yes - Past Social History Smoking Status: Never Smoked - CARDIAC Hx Cardiac Disorders: Yes Hx Congestive Heart Failure: Yes Hx Hypercholesterolemia: Yes Hx Hypertension: Yes - PULMONARY Hx Respiratory Disorders: No - NEUROLOGICAL Other/Comment: stroke 2012 - HEENT Hx HEENT Problems: No - RENAL Hx Chronic Kidney Disease: Yes Other/Comment: CRI - ENDOCRINE/METABOLIC Hx Diabetes Mellitus Type 2: Yes - HEMATOLOGICAL/ONCOLOGICAL Hx Blood Disorders: No - INTEGUMENTARY Hx Dermatological Problems: No - MUSCULOSKELETAL/RHEUMATOLOGICAL Hx Musculoskeletal Disorders: No Hx Falls: Yes - GASTROINTESTINAL Hx Gastrointestinal Disorders: No - GENITOURINARY/GYNECOLOGICAL Hx Genitourinary Disorders: No - PSYCHIATRIC Hx Substance Use: No - SURGICAL HISTORY Other/Comment: triple by pass 2006 - ANESTHESIA Hx Anesthesia: Yes Meds Allergies/Adverse Reactions: Allergies Allergy/AdvReac Type Severity Reaction Status Date / Time No Known Allergies Allergy Verified 07/02/17 14:39 - Medications Medications: Current Medications Allopurinol (Zyloprim) 100 mg PO DAILY [facility] Last Admin: 07/03/17 12:13 Dose: Not Given Famotidine (Pepcid) 20 mg IVP DAILY [facility] Last Admin: 07/03/17 11:09 Dose: 20 mg Furosemide (Lasix) 40 mg IVP Q12 [facility] Last Admin: 07/03/17 09:17 Dose: 40 mg Heparin Sodium (Porcine) (Heparin) 5,000 units SC Q12 [facility] Last Admin: 07/03/17 09:19 Dose: 5,000 units Hydralazine HCl (Apresoline) 10 mg IVP Q6H [facility] Last Admin: 07/03/17 17:34 Dose: 10 mg Dextrose (Dextrose 10% In Water) 1,000 mls @ 50 mls/hr IV .Q20H [facility] Last Admin: 07/03/17 14:12 Dose: 50 mls/hr Insulin Human Regular (Novolin R) 0 unit SC ACHS [facility] PRN Reason: Protocol Last Admin: 07/03/17 17:37 Dose: Not Given Metoprolol Tartrate (Lopressor) 25 mg PO BID [facility] Last Admin: 07/03/17 18:11 Dose: Not Given Rosuvastatin Calcium (Crestor) 10 mg PO HS [facility] Physical Exam - Head Exam Head Exam: ATRAUMATIC, NORMOCEPHALIC - Eye Exam Eye Exam: PERRL - ENT Exam ENT Exam: Mucous Membranes Moist - Neck Exam Neck exam: Positive for: Normal Inspection - Respiratory Exam Respiratory Exam: Decreased Breath Sounds - Cardiovascular Exam Cardiovascular Exam: REGULAR RHYTHM - GI/Abdominal Exam GI & Abdominal Exam: Normal Bowel Sounds, Soft - Extremities Exam Extremities exam: Positive for: pedal edema - Neurological Exam Neurological exam: Alert Results - Vital Signs Recent Vital Signs: Last Vital Signs Temp 97.4 F L 07/03/17 08:00 Pulse 88 07/03/17 18:01 Resp 23 07/03/17 18:01 BP 124/68 07/03/17 18:01 Pulse Ox 99 07/03/17 18:01 - Labs Result Diagrams: 07/03/17 06:04 07/03/17 06:04 Labs: Laboratory Results - last 24 hr 07/02/17 07/02/17 07/02/17 18:36 18:55 20:01 WBC RBC Hgb Hct MCV MCH MCHC RDW Plt Count MPV Neut % (Auto) Lymph % (Auto) [place] % (Auto) Eos % (Auto) Baso % (Auto) Neut # Lymph # [place] # Eos # Baso # Neutrophils % (Manual) Band Neutrophils % Lymphocytes % (Manual) Monocytes % (Manual) Platelet Estimate Large Platelets Giant Platelets Hypochromasia (manual) Poikilocytosis (manual Anisocytosis (manual) Puncture Site Rr pCO2 61 H pO2 140 H HCO3 25.4 ABG pH 7.28 L ABG Total CO2 30.6 H ABG O2 Saturation 99.3 H ABG Base Excess 0.5 ABG Hemoglobin ABG Carboxyhemoglobin POC ABG HHb (Measured) ABG Methemoglobin Luis Carlos Test Pos ABG Potassium 4.3 VBG pH VBG pCO2 VBG HCO3 VBG Total CO2 VBG O2 Sat (Calc) VBG Base Excess VBG Potassium A-a O2 Difference 69.0 Respiratory Index 0.5 Hgb O2 Saturation Sodium 136.0 Chloride 108.0 H Glucose 53 L Lactate 0.6 L Liter Flow Vent Mode FiO2 40.0 Inspiratory BiPAP 12 Expiratory BiPAP 6 Crit Value Called To Crit Value Called By Crit Value Read Back Blood Gas Notified Time Potassium Carbon Dioxide Anion Gap BUN Creatinine Est GFR ( Amer) Est GFR (Non-Af Amer) POC Glucose (mg/dL) 47 L 92 Random Glucose Hemoglobin A1c Calcium Magnesium Total Bilirubin AST ALT Alkaline Phosphatase Total Creatine Kinase CK-MB (Mass) Troponin I, Quant Total Protein Albumin Globulin Albumin/Globulin Ratio Vitamin B12 Procalcitonin TSH 3rd Generation Prolactin Arterial Blood Potassium 4.3 Venous Blood Potassium Urine Color Urine Clarity Urine pH Ur Specific [place] Urine Protein Urine Glucose (UA) Urine Ketones Urine Blood Urine Nitrate Urine Bilirubin Urine Urobilinogen Ur Leukocyte Esterase Urine WBC (Auto) Urine RBC (Auto) Urine Bacteria Hyaline Casts Ur Random Creatinine U Random Total Protein RPR 07/02/17 07/02/17 07/02/17 21:12 21:20 21:27 WBC RBC Hgb Hct MCV MCH MCHC RDW Plt Count MPV Neut % (Auto) Lymph % (Auto) [place] % (Auto) Eos % (Auto) Baso % (Auto) Neut # Lymph # [place] # Eos # Baso # Neutrophils % (Manual) Band Neutrophils % Lymphocytes % (Manual) Monocytes % (Manual) Platelet Estimate Large Platelets Giant Platelets Hypochromasia (manual) Poikilocytosis (manual Anisocytosis (manual) Puncture Site pCO2 pO2 HCO3 ABG pH ABG Total CO2 ABG O2 Saturation ABG Base Excess ABG Hemoglobin ABG Carboxyhemoglobin POC ABG HHb (Measured) ABG Methemoglobin Luis Carlos Test ABG Potassium VBG pH VBG pCO2 VBG HCO3 VBG Total CO2 VBG O2 Sat (Calc) VBG Base Excess VBG Potassium A-a O2 Difference Respiratory Index Hgb O2 Saturation Sodium Chloride Glucose Lactate Liter Flow Vent Mode FiO2 Inspiratory BiPAP Expiratory BiPAP Crit Value Called To Crit Value Called By Crit Value Read Back Blood Gas Notified Time Potassium Carbon Dioxide Anion Gap BUN Creatinine Est GFR ( Amer) Est GFR (Non-Af Amer) POC Glucose (mg/dL) 48 L 49 L Random Glucose Hemoglobin A1c Calcium Magnesium Total Bilirubin AST ALT Alkaline Phosphatase Total Creatine Kinase CK-MB (Mass) Troponin I, Quant Total Protein Albumin Globulin Albumin/Globulin Ratio Vitamin B12 Procalcitonin TSH 3rd Generation Prolactin Arterial Blood Potassium Venous Blood Potassium Urine Color Yellow Urine Clarity Clear Urine pH 5.0 Ur Specific [place] 1.011 Urine Protein 3+ H Urine Glucose (UA) Normal Urine Ketones Negative Urine Blood 1+ H Urine Nitrate Negative Urine Bilirubin Negative Urine Urobilinogen Normal Ur Leukocyte Esterase Neg Urine WBC (Auto) < 1 Urine RBC (Auto) < 1 Urine Bacteria Rare Hyaline Casts 0-2 Ur Random Creatinine U Random Total Protein RPR 07/02/17 07/02/17 07/02/17 22:29 22:57 23:22 WBC RBC Hgb Hct MCV MCH MCHC RDW Plt Count MPV Neut % (Auto) Lymph % (Auto) [place] % (Auto) Eos % (Auto) Baso % (Auto) Neut # Lymph # [place] # Eos # Baso # Neutrophils % (Manual) Band Neutrophils % Lymphocytes % (Manual) Monocytes % (Manual) Platelet Estimate Large Platelets Giant Platelets Hypochromasia (manual) Poikilocytosis (manual Anisocytosis (manual) Puncture Site pCO2 pO2 27 L HCO3 ABG pH ABG Total CO2 ABG O2 Saturation ABG Base Excess ABG Hemoglobin ABG Carboxyhemoglobin POC ABG HHb (Measured) ABG Methemoglobin Luis Carlos Test ABG Potassium VBG pH 7.29 L VBG pCO2 58 VBG HCO3 23.5 VBG Total CO2 29.7 H VBG O2 Sat (Calc) 58.3 VBG Base Excess 0.1 VBG Potassium 4.1 A-a O2 Difference Respiratory Index Hgb O2 Saturation Sodium 129.0 L Chloride 92.0 L Glucose > 750 H* D Lactate 1.0 Liter Flow Vent Mode FiO2 Inspiratory BiPAP Expiratory BiPAP Crit Value Called To Richard pinto icu Crit Value Called By Kathleen Crit Value Read Back N Blood Gas Notified Time 2308 Potassium Carbon Dioxide Anion Gap BUN Creatinine Est GFR ( Amer) Est GFR (Non-Af Amer) POC Glucose (mg/dL) 105 Random Glucose Hemoglobin A1c Calcium Magnesium Total Bilirubin AST ALT Alkaline Phosphatase Total Creatine Kinase 131 CK-MB (Mass) 3.66 H Troponin I, Quant 0.1250 H* Total Protein Albumin Globulin Albumin/Globulin Ratio Vitamin B12 Procalcitonin TSH 3rd Generation Prolactin Arterial Blood Potassium Venous Blood Potassium 4.1 Urine Color Urine Clarity Urine pH Ur Specific [place] Urine Protein Urine Glucose (UA) Urine Ketones Urine Blood Urine Nitrate Urine Bilirubin Urine Urobilinogen Ur Leukocyte Esterase Urine WBC (Auto) Urine RBC (Auto) Urine Bacteria Hyaline Casts Ur Random Creatinine U Random Total Protein RPR 07/02/17 07/02/17 07/02/17 23:22 23:22 23:23 WBC RBC Hgb Hct MCV MCH MCHC RDW Plt Count MPV Neut % (Auto) Lymph % (Auto) [place] % (Auto) Eos % (Auto) Baso % (Auto) Neut # Lymph # [place] # Eos # Baso # Neutrophils % (Manual) Band Neutrophils % Lymphocytes % (Manual) Monocytes % (Manual) Platelet Estimate Large Platelets Giant Platelets Hypochromasia (manual) Poikilocytosis (manual Anisocytosis (manual) Puncture Site pCO2 pO2 HCO3 ABG pH ABG Total CO2 ABG O2 Saturation ABG Base Excess ABG Hemoglobin ABG Carboxyhemoglobin POC ABG HHb (Measured) ABG Methemoglobin Luis Carlos Test ABG Potassium VBG pH VBG pCO2 VBG HCO3 VBG Total CO2 VBG O2 Sat (Calc) VBG Base Excess VBG Potassium A-a O2 Difference Respiratory Index Hgb O2 Saturation Sodium Chloride Glucose Lactate Liter Flow Vent Mode FiO2 Inspiratory BiPAP Expiratory BiPAP Crit Value Called To Crit Value Called By Crit Value Read Back Blood Gas Notified Time Potassium Carbon Dioxide Anion Gap BUN Creatinine Est GFR ( Amer) Est GFR (Non-Af Amer) POC Glucose (mg/dL) Random Glucose Hemoglobin A1c 6.8 H Calcium Magnesium Total Bilirubin AST ALT Alkaline Phosphatase Total Creatine Kinase CK-MB (Mass) Troponin I, Quant Total Protein Albumin Globulin Albumin/Globulin Ratio Vitamin B12 Procalcitonin 0.22 TSH 3rd Generation Prolactin Arterial Blood Potassium Venous Blood Potassium Urine Color Urine Clarity Urine pH Ur Specific [place] Urine Protein Urine Glucose (UA) Urine Ketones Urine Blood Urine Nitrate Urine Bilirubin Urine Urobilinogen Ur Leukocyte Esterase Urine WBC (Auto) Urine RBC (Auto) Urine Bacteria Hyaline Casts Ur Random Creatinine 118.6 U Random Total Protein Cancelled RPR 07/02/17 07/02/17 07/03/17 23:23 23:42 02:17 WBC RBC Hgb Hct MCV MCH MCHC RDW Plt Count MPV Neut % (Auto) Lymph % (Auto) [place] % (Auto) Eos % (Auto) Baso % (Auto) Neut # Lymph # [place] # Eos # Baso # Neutrophils % (Manual) Band Neutrophils % Lymphocytes % (Manual) Monocytes % (Manual) Platelet Estimate Large Platelets Giant Platelets Hypochromasia (manual) Poikilocytosis (manual Anisocytosis (manual) Puncture Site pCO2 pO2 HCO3 ABG pH ABG Total CO2 ABG O2 Saturation ABG Base Excess ABG Hemoglobin ABG Carboxyhemoglobin POC ABG HHb (Measured) ABG Methemoglobin Luis Carlos Test ABG Potassium VBG pH VBG pCO2 VBG HCO3 VBG Total CO2 VBG O2 Sat (Calc) VBG Base Excess VBG Potassium A-a O2 Difference Respiratory Index Hgb O2 Saturation Sodium Chloride Glucose Lactate Liter Flow Vent Mode FiO2 Inspiratory BiPAP Expiratory BiPAP Crit Value Called To Crit Value Called By Crit Value Read Back Blood Gas Notified Time Potassium Carbon Dioxide Anion Gap BUN Creatinine Est GFR ( Amer) Est GFR (Non-Af Amer) POC Glucose (mg/dL) 75 89 Random Glucose Hemoglobin A1c Calcium Magnesium Total Bilirubin AST ALT Alkaline Phosphatase Total Creatine Kinase CK-MB (Mass) Troponin I, Quant Total Protein Albumin Globulin Albumin/Globulin Ratio Vitamin B12 Procalcitonin TSH 3rd Generation Prolactin Arterial Blood Potassium Venous Blood Potassium Urine Color Urine Clarity Urine pH Ur Specific [place] Urine Protein Urine Glucose (UA) Urine Ketones Urine Blood Urine Nitrate Urine Bilirubin Urine Urobilinogen Ur Leukocyte Esterase Urine WBC (Auto) Urine RBC (Auto) Urine Bacteria Hyaline Casts Ur Random Creatinine U Random Total Protein 434.0 H RPR 07/03/17 07/03/17 07/03/17 04:18 06:04 06:04 WBC 10.3 RBC 4.09 L Hgb 11.3 L Hct 35.8 MCV 87.6 MCH 27.6 MCHC 31.5 L RDW 18.3 H Plt Count 246 MPV 8.4 Neut % (Auto) 92.3 H Lymph % (Auto) 5.[address] [place] % (Auto) 1.5 Eos % (Auto) 0.1 Baso % (Auto) 0.3 Neut # 9.5 H Lymph # 0.[address] [place] # 0.2 Eos # 0.0 Baso # 0.0 Neutrophils % (Manual) 90 H Band Neutrophils % 5 H Lymphocytes % (Manual) 4 L Monocytes % (Manual) 1 Platelet Estimate Normal Large Platelets Present Giant Platelets Present Hypochromasia (manual) Slight Poikilocytosis (manual Slight Anisocytosis (manual) Slight Puncture Site pCO2 pO2 HCO3 ABG pH ABG Total CO2 ABG O2 Saturation ABG Base Excess ABG Hemoglobin ABG Carboxyhemoglobin POC ABG HHb (Measured) ABG Methemoglobin Luis Carlos Test ABG Potassium VBG pH VBG pCO2 VBG HCO3 VBG Total CO2 VBG O2 Sat (Calc) VBG Base Excess VBG Potassium A-a O2 Difference Respiratory Index Hgb O2 Saturation Sodium Chloride Glucose Lactate Liter Flow Vent Mode FiO2 Inspiratory BiPAP Expiratory BiPAP Crit Value Called To Crit Value Called By Crit Value Read Back Blood Gas Notified Time Potassium Carbon Dioxide Anion Gap BUN Creatinine Est GFR ( Amer) Est GFR (Non-Af Amer) POC Glucose (mg/dL) 123 H Random Glucose Hemoglobin A1c Calcium Magnesium Total Bilirubin AST ALT Alkaline Phosphatase Total Creatine Kinase 107 CK-MB (Mass) 3.76 H Troponin I, Quant 0.1030 Total Protein Albumin Globulin Albumin/Globulin Ratio Vitamin B12 Procalcitonin TSH 3rd Generation Prolactin Arterial Blood Potassium Venous Blood Potassium Urine Color Urine Clarity Urine pH Ur Specific [place] Urine Protein Urine Glucose (UA) Urine Ketones Urine Blood Urine Nitrate Urine Bilirubin Urine Urobilinogen Ur Leukocyte Esterase Urine WBC (Auto) Urine RBC (Auto) Urine Bacteria Hyaline Casts Ur Random Creatinine U Random Total Protein RPR 07/03/17 07/03/17 07/03/17 06:04 06:17 07:42 WBC RBC Hgb Hct MCV MCH MCHC RDW Plt Count MPV Neut % (Auto) Lymph % (Auto) [place] % (Auto) Eos % (Auto) Baso % (Auto) Neut # Lymph # [place] # Eos # Baso # Neutrophils % (Manual) Band Neutrophils % Lymphocytes % (Manual) Monocytes % (Manual) Platelet Estimate Large Platelets Giant Platelets Hypochromasia (manual) Poikilocytosis (manual Anisocytosis (manual) Puncture Site pCO2 pO2 HCO3 ABG pH ABG Total CO2 ABG O2 Saturation ABG Base Excess ABG Hemoglobin ABG Carboxyhemoglobin POC ABG HHb (Measured) ABG Methemoglobin Luis Carlos Test ABG Potassium VBG pH VBG pCO2 VBG HCO3 VBG Total CO2 VBG O2 Sat (Calc) VBG Base Excess VBG Potassium A-a O2 Difference Respiratory Index Hgb O2 Saturation Sodium 137 Chloride 99 Glucose Lactate Liter Flow Vent Mode FiO2 Inspiratory BiPAP Expiratory BiPAP Crit Value Called To Crit Value Called By Crit Value Read Back Blood Gas Notified Time Potassium 4.3 Carbon Dioxide 28 Anion Gap 14 BUN 29 H Creatinine 1.8 H Est GFR ( Amer) 46 Est GFR (Non-Af Amer) 38 POC Glucose (mg/dL) 131 H 238 H Random Glucose 121 H Hemoglobin A1c Calcium 8.6 Magnesium 2.1 Total Bilirubin 0.6 AST 33 ALT 70 Alkaline Phosphatase 95 Total Creatine Kinase CK-MB (Mass) Troponin I, Quant Total Protein 7.6 Albumin 3.3 L Globulin 4.2 H Albumin/Globulin Ratio 0.8 L Vitamin B12 478 Procalcitonin TSH 3rd Generation 0.65 Prolactin Arterial Blood Potassium Venous Blood Potassium Urine Color Urine Clarity Urine pH Ur Specific [place] Urine Protein Urine Glucose (UA) Urine Ketones Urine Blood Urine Nitrate Urine Bilirubin Urine Urobilinogen Ur Leukocyte Esterase Urine WBC (Auto) Urine RBC (Auto) Urine Bacteria Hyaline Casts Ur Random Creatinine U Random Total Protein RPR 07/03/17 07/03/17 07/03/17 08:07 08:14 08:14 WBC RBC Hgb Hct MCV MCH MCHC RDW Plt Count MPV Neut % (Auto) Lymph % (Auto) [place] % (Auto) Eos % (Auto) Baso % (Auto) Neut # Lymph # [place] # Eos # Baso # Neutrophils % (Manual) Band Neutrophils % Lymphocytes % (Manual) Monocytes % (Manual) Platelet Estimate Large Platelets Giant Platelets Hypochromasia (manual) Poikilocytosis (manual Anisocytosis (manual) Puncture Site Rr pCO2 55 H pO2 85 HCO3 26.4 ABG pH 7.33 L ABG Total CO2 30.7 H ABG O2 Saturation 97.2 ABG Base Excess 1.9 ABG Hemoglobin ABG Carboxyhemoglobin POC ABG HHb (Measured) ABG Methemoglobin Luis Carlos Test Pos ABG Potassium 4.3 VBG pH VBG pCO2 VBG HCO3 VBG Total CO2 VBG O2 Sat (Calc) VBG Base Excess VBG Potassium A-a O2 Difference 39.0 Respiratory Index 0.5 Hgb O2 Saturation Sodium 135.0 Chloride 106.0 Glucose 232 H Lactate 0.5 L Liter Flow 2.0 Vent Mode FiO2 27.0 Inspiratory BiPAP Expiratory BiPAP Crit Value Called To Crit Value Called By Crit Value Read Back Blood Gas Notified Time Potassium Carbon Dioxide Anion Gap BUN Creatinine Est GFR ( Amer) Est GFR (Non-Af Amer) POC Glucose (mg/dL) Random Glucose Hemoglobin A1c Calcium Magnesium Total Bilirubin AST ALT Alkaline Phosphatase Total Creatine Kinase CK-MB (Mass) Troponin I, Quant Total Protein Albumin Globulin Albumin/Globulin Ratio Vitamin B12 Procalcitonin TSH 3rd Generation Prolactin 7.1 Arterial Blood Potassium 4.3 Venous Blood Potassium Urine Color Urine Clarity Urine pH Ur Specific [place] Urine Protein Urine Glucose (UA) Urine Ketones Urine Blood Urine Nitrate Urine Bilirubin Urine Urobilinogen Ur Leukocyte Esterase Urine WBC (Auto) Urine RBC (Auto) Urine Bacteria Hyaline Casts Ur Random Creatinine U Random Total Protein RPR Nonreactive 07/03/17 07/03/17 07/03/17 12:15 15:23 16:34 WBC RBC Hgb Hct MCV MCH MCHC RDW Plt Count MPV Neut % (Auto) Lymph % (Auto) [place] % (Auto) Eos % (Auto) Baso % (Auto) Neut # Lymph # [place] # Eos # Baso # Neutrophils % (Manual) Band Neutrophils % Lymphocytes % (Manual) Monocytes % (Manual) Platelet Estimate Large Platelets Giant Platelets Hypochromasia (manual) Poikilocytosis (manual Anisocytosis (manual) Puncture Site pCO2 pO2 HCO3 ABG pH ABG Total CO2 ABG O2 Saturation ABG Base Excess ABG Hemoglobin ABG Carboxyhemoglobin POC ABG HHb (Measured) ABG Methemoglobin Luis Carlos Test ABG Potassium VBG pH VBG pCO2 VBG HCO3 VBG Total CO2 VBG O2 Sat (Calc) VBG Base Excess VBG Potassium A-a O2 Difference Respiratory Index Hgb O2 Saturation Sodium Chloride Glucose Lactate Liter Flow Vent Mode FiO2 Inspiratory BiPAP Expiratory BiPAP Crit Value Called To Crit Value Called By Crit Value Read Back Blood Gas Notified Time Potassium Carbon Dioxide Anion Gap BUN Creatinine Est GFR ( Amer) Est GFR (Non-Af Amer) POC Glucose (mg/dL) 273 H 177 H Random Glucose Hemoglobin A1c Calcium Magnesium Total Bilirubin AST ALT Alkaline Phosphatase Total Creatine Kinase 105 CK-MB (Mass) 3.22 Troponin I, Quant 0.1320 H* Total Protein Albumin Globulin Albumin/Globulin Ratio Vitamin B12 Procalcitonin TSH 3rd Generation Prolactin Arterial Blood Potassium Venous Blood Potassium Urine Color Urine Clarity Urine pH Ur Specific [place] Urine Protein Urine Glucose (UA) Urine Ketones Urine Blood Urine Nitrate Urine Bilirubin Urine Urobilinogen Ur Leukocyte Esterase Urine WBC (Auto) Urine RBC (Auto) Urine Bacteria Hyaline Casts Ur Random Creatinine U Random Total Protein RPR 07/03/17 17:06 WBC RBC Hgb Hct MCV MCH MCHC RDW Plt Count MPV Neut % (Auto) Lymph % (Auto) [place] % (Auto) Eos % (Auto) Baso % (Auto) Neut # Lymph # [place] # Eos # Baso # Neutrophils % (Manual) Band Neutrophils % Lymphocytes % (Manual) Monocytes % (Manual) Platelet Estimate Large Platelets Giant Platelets Hypochromasia (manual) Poikilocytosis (manual Anisocytosis (manual) Puncture Site Rr pCO2 48 H pO2 96 HCO3 28.8 H ABG pH 7.41 ABG Total CO2 31.9 H ABG O2 Saturation 98.7 H ABG Base Excess 5.0 H ABG Hemoglobin 10.5 L ABG Carboxyhemoglobin 2.8 H POC ABG HHb (Measured) 1.2 ABG Methemoglobin 1.2 Luis Carlos Test Po ABG Potassium VBG pH VBG pCO2 VBG HCO3 VBG Total CO2 VBG O2 Sat (Calc) VBG Base Excess VBG Potassium A-a O2 Difference 22.0 Respiratory Index 0.2 Hgb O2 Saturation 94.7 L Sodium Chloride Glucose Lactate Liter Flow Vent Mode Bipap FiO2 25.0 Inspiratory BiPAP 14 Expiratory BiPAP 6 Crit Value Called To Crit Value Called By Crit Value Read Back Blood Gas Notified Time Potassium Carbon Dioxide Anion Gap BUN Creatinine Est GFR ( Amer) Est GFR (Non-Af Amer) POC Glucose (mg/dL) Random Glucose Hemoglobin A1c Calcium Magnesium Total Bilirubin AST ALT Alkaline Phosphatase Total Creatine Kinase CK-MB (Mass) Troponin I, Quant Total Protein Albumin Globulin Albumin/Globulin Ratio Vitamin B12 Procalcitonin TSH 3rd Generation Prolactin Arterial Blood Potassium Venous Blood Potassium Urine Color Urine Clarity Urine pH Ur Specific [place] Urine Protein Urine Glucose (UA) Urine Ketones Urine Blood Urine Nitrate Urine Bilirubin Urine Urobilinogen Ur Leukocyte Esterase Urine WBC (Auto) Urine RBC (Auto) Urine Bacteria Hyaline Casts Ur Random Creatinine U Random Total Protein RPR Assessment & Plan (1) Hypercapnic respiratory failure, chronic Status: Acute Comment: Secondary to CHF, obstructive sleep apnea/obesity hypoventilation syndrome. Continue BiPAP. Continue Lasix. Follow-up ABG. Seen by neurology (2) Pulmonary edema Status: Acute
--- NOTE | 2017-07-03 19:11 | CON ---
DATE: ATTENDING PHYSICIAN: Paola Adams MD. LOCATION: The patient is in room number ICU, bed 18. REASON FOR THE CONSULTATION: Change in mental status. CHIEF COMPLAINT: The patient was brought in to [facility] as per the advice from his primary care physician because of change in mental status and blood sugar was too low with respiratory distress. From neurological point of view, I was called in to evaluate him for change in mental status. HISTORY OF PRESENTING ILLNESS: Mr. Haris Flowers is a 67-year-old right-handed moderately obese [place] male. Since March, he is noncompliant with his medications for his blood pressure as well as his sugar while he was in [facility]. He came to [place] in April, still he was not taking any medication as the way he should. noted for the last 2 weeks he has been increasing his sleepiness, not responding the way he should. Sometimes, he becomes disoriented also. No history of loss of consciousness. No history of involuntary movements or bowel and bladder incontinence. No history of focal weakness being documented or witnessed. PAST MEDICAL HISTORY: Significant for coronary artery disease status post bypass surgery 5 years ago, history of aneurysm, been attempted to get treatment in [place]. History of uncontrolled diabetes mellitus, chronic renal failure, gouty arthritis. ALLERGIES: NO KNOWN ALLERGIES. FAMILY HISTORY: Noncontributory. MEDICATIONS: Jardiance, metformin, angiotensin receptor blockers, Plavix, aspirin, metoprolol, glipizide. REVIEW OF SYSTEMS: 12-point system being reviewed; from neuro, change in mental status. PHYSICAL EXAMINATION: VITAL SIGNS: Blood pressure 132/79, mean arterial pressure of 104, respiratory rate 23, temperature afebrile, pulse rate 77. NECK: Supple. No carotid bruit. HEART: Sounds normal. Mild systolic murmur heard. EXTREMITIES: Both extremities are 1+ pitting edema. NEUROLOGIC EXAMINATION: The patient is examined in the presence of his . He is awake, alert, oriented to person, place and time. No sign of confusion. He is complaining he is hungry since yesterday morning, he has not taken any food. No right and left confusion. He follows 2-step commands. Cranial Nerve Examination: Visual field responds to visual threat. Pupils reactive to light. Extraocular movement markedly decreased in all direction. No facial sensory deficit. Mild facial asymmetry noted in both sides. Hearing is normal. Tongue is midline. Good gag. Motor Examination: On outstretched hand with eyes closed, no drift noted. Power asymmetric on either side. Subjective weakness noted in both upper extremities as well as lower extremities. Deep Tendon Reflexes: Absent in both upper and lower extremities shows withdrawal response. Sensory Examination: Responds to pain symmetrically on both sides. No cortical sensory loss. He is presenting with significant bilateral distal symmetric sensory motor neuropathy, which is probably secondary to his underlying metabolic causes. Coordination: [id number] test is intact. Gait is deferred at this time. LABORATORY DATA: Workup: CT of the head is reviewed. No acute pathology is noted. 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 EKG normal sinus rhythm. Blood workup: WBC 10.3, hemoglobin 11.3, hematocrit 35.8, platelet 246, PT 12.4, INR 1.1. PTT 34. The blood gas on room air, pH was 7.28, PCO2 is 61, PO2 140, bicarbonate 30.6 with oxygen saturation of 99.3. Sodium 137, potassium 4.4, chloride 99, bicarbonate is 28, BUN 29, creatinine 1.8. GFR 38. Glucose 131. Calcium 8.6, troponin 0.1030. BMP at the time of admission 6460. Urine shows 3+ proteinuria, 1+ blood. CONCLUSION: Mr. Haris Croweague been presenting with fluctuant change in mental status, this all probably secondary to metabolic causes presenting hypoglycemia versus hypoperfusion stage. From neurological point of view, other possible process including partial complex seizures should be worked up. Considering his physical structure as well as morbid risk factors, the patient definitely has sleep related breathing disorder including mixed sleep apnea versus obesity hypoventilation syndrome. The patient also presenting with bilateral distal asymmetric sensory motor neuropathy. RECOMMENDATIONS: 1. Dementia workup as recommended. 2. MRI of the brain to rule out any structural related causes. 3. Intensive program to rule out electrographic abnormalities. 4. Blood pressure and diabetes should be controlled. 5. The patient definitely need polysomnogram, which can be done as an outpatient to treat his hidden sleep related breathing problem. 6. The patient will be followed closely while he is in the hospital. Arslan Carl MD AMRLON
[2017-07-04 06:26] LABS: BASO # 0.1 K/uL (0.0-0.2); BASO % 0.7 % (0.0-2.0); EOS # 0.1 K/uL (0.0-0.7); EOS % 1.4 % (0.0-4.0); HEMATOCRIT 33.2 % (35.0-51.0); LYMPH % 9.7 % (20.0-40.0); MEAN CELL VOLUME 87.4 fL (80.0-94.0); MEAN CORPUSCULAR HEMOGLOBIN 27.8 pg (27.0-31.0); MEAN CORPUSCULAR HGB CONC 31.8 g/dL (33.0-37.0); MEAN PLATELET VOLUME 8.5 fL (7.2-11.7); MONO # 0.5 K/uL (0.0-0.8); MONO % 5.1 % (0.0-10.0); PLATELET COUNT 264 K/uL (130-400); RED CELL DISTRIBUTION WIDTH 18.1 % (11.5-14.5); WHITE BLOOD COUNT 10.5 K/uL (4.8-10.8)
[2017-07-04 06:32] LABS: POTASSIUM 4.3 mmol/L (3.6-5.2)
[2017-07-04 06:34] LABS: BILIRUBIN,TOTAL 0.8 mg/dL (0.2-1.3)
[2017-07-04 06:35] LABS: ALB/GLOB RATIO 0.7 (1.0-2.1); PHOSPHOROUS 3.8 mg/dL (2.5-4.5); TOTAL PROTEIN 6.6 g/dL (6.3-8.3)
[2017-07-04] MEDS: (Novolin R) Insulin Human Regular 100 units/ml vial SC SCH ×4 (08:03→22:07)
[2017-07-04 08:50] LABS: EOSINOPHIL 3 % (0-4)
[2017-07-04 08:51] LABS: NEUTROPHIL 80 % (50-75); TOTAL CELLS COUNTED 100
[2017-07-04 10:06] LABS: ABG ALLEN TEST POS; ARTERIAL BLOOD HGB O2 SAT 93.7 % (95.0-98.0); CARBOXYHEMOGLOBIN 2.9 % (0.5-1.5); DRAW SITE RR; HHB 2.2 % (0.0-5.0); METHEMOGLOBIN 1.2 % (0.0-3.0)
[2017-07-04 13:07] LABS: INR 1.1
[2017-07-04] MEDS: Heparin25000 units/250ml 1/2NS 25,000 UNITS/250 ML BAG IV PRN (13:45)
--- NOTE | 2017-07-04 14:02 | CP.CCUPN ---
CCU Subjective - Physician Review Events Since Last Encounter (Free Text): 07/04/17 13:52 Patient seen and examined in the intensive care unit. Case discussed with house staff in the morning rounds. breathing much improved Currently on BiPAP for shortness of breath Patient is much more awake and responsive able to swallow Dextrose fluid reduced to 30 mL an hour Awaiting cardiology evaluation for elevated troponins CCU Objective - Vital Signs / Intake & Output Vital Signs (Last 4 hours): Vital Signs Pulse Resp BP Pulse Ox 07/04/17 12:30 89 07/04/17 12:02 77 22 134/77 96 07/04/17 12:00 81 22 97 07/04/17 11:01 81 25 H 143/83 99 07/04/17 11:00 85 23 99 07/04/17 10:02 83 25 H 143/92 H 96 07/04/17 10:00 83 22 98 Intake and Output (Last 8hrs): Intake & Output 07/03/17 07/04/17 07/04/17 22:59 06:59 14:59 Intake Total 400 400 440 Output Total 595 530 490 Balance -195 -130 -50 Weight 207 lb 11.2 oz Intake: Intake, IV Amount 400 400 240 Right Antecubital 400 400 240 Oral 0 200 Output: Urine 595 530 490 Urethral ([place]) 595 530 490 Other: # Bowel Movements 1 - Physical Exam Head: Positive for: Atraumatic, Normocephalic Conjunctiva: Positive for: Normal Mouth: Positive for: Moist Mucous Membranes Neck: Positive for: Normal Range of Motion Respiratory/Chest: Positive for: Rales. Negative for: Good Air Exchange, Accessory Muscle Use Cardiovascular: Positive for: Regular Rate and Rhythm, Normal S1, S2 Abdomen: Positive for: Distention, Normal Bowel Sounds. Negative for: Tenderness Upper Extremity: Positive for: Normal Inspection Lower Extremity: Positive for: Edema Skin: Positive for: Normal Color Psychiatric: Negative for: Alert - Medications Active Medications: Active Medications Generic Name Dose Route Start Last Admin Trade Name Freq PRN Reason Stop Dose Admin Allopurinol 100 mg 07/03/17 10:00 07/04/17 09:09 Zyloprim PO 100 mg DAILY RANDOLPH Administration Aspirin 81 mg 07/04/17 12:30 Ecotrin PO DAILY RANDOLPH Famotidine 20 mg 07/03/17 11:00 07/04/17 09:08 Pepcid IVP 20 mg DAILY RANDOLPH Administration Furosemide 40 mg 07/03/17 10:00 07/04/17 09:09 Lasix IVP 40 mg Q12 RANDOLPH Administration Hydralazine HCl 10 mg 07/03/17 11:04 07/04/17 11:36 Apresoline IVP 10 mg Q6H RANDOLPH Administration Dextrose 1,000 mls @ 30 mls/hr 07/04/17 10:00 07/04/17 10:29 Dextrose 10% In Water IV 30 mls/hr .Q24H RANDOLPH Administration Heparin Sodium/Sodium Chloride 25,000 units in 250 mls @ 11.213 mls/hr 12:23 Heparin 57116 Units/250ml 1/2 Normal Saline IV .[id number] PRN ADJUST RATE PER PROTOCOL Protocol 12 UNITS/KG/HR Insulin Human Regular 0 unit 07/03/17 07:30 07/04/17 12:02 Novolin R SC 1 unit ACHS RANDOLPH Administration Protocol Metoprolol Tartrate 25 mg 07/03/17 10:00 07/04/17 09:09 Lopressor PO 25 mg BID RANDOLPH Administration Rosuvastatin Calcium 10 mg 07/03/17 22:00 07/03/17 21:04 Crestor PO 10 mg HS RANDOLPH Administration - Patient Studies Lab Studies: Microbiology Studies 07/02/17 08:30 MRSA Culture (Admit) - Final Naris MRSA NOT DETECTED 07/02/17 23:00 Blood Culture - Preliminary Blood-Venous NO GROWTH AFTER 24 HOURS 07/02/17 22:45 Blood Culture - Preliminary Blood-Venous NO GROWTH AFTER 24 HOURS Lab Studies 07/04/17 07/04/17 07/04/17 Range/Units 12:46 12:21 11:07 WBC (4.8-10.8) K/uL RBC (4.40-5.90) Mil/uL Hgb (12.0-18.0) g/dL Hct (35.0-51.0) % MCV (80.0-94.0) fL MCH (27.0-31.0) pg MCHC (33.0-37.0) g/dL RDW (11.5-14.5) % Plt Count (130-400) K/uL MPV (7.2-11.7) fL Neut % (Auto) (50.0-75.0) % Lymph % (Auto) (20.0-40.0) % [place] % (Auto) (0.0-10.0) % Eos % (Auto) (0.0-4.0) % Baso % (Auto) (0.0-2.0) % Neut # (1.8-7.0) K/uL Lymph # (1.0-4.3) K/uL [place] # (0.0-0.8) K/uL Eos # (0.0-0.7) K/uL Baso # (0.0-0.2) K/uL Neutrophils % (Manual) (50-75) % Band Neutrophils % (0-2) % Lymphocytes % (Manual) (20-40) % Monocytes % (Manual) (0-10) % Eosinophils % (Manual) (0-4) % Platelet Estimate (NORMAL) Polychromasia Hypochromasia (manual) Poikilocytosis (manual Anisocytosis (manual) Microcytosis (manual) Macrocytosis (manual) Ovalocytes PT 12.0 (9.7-12.2) SECONDS INR 1.1 APTT 31 (21-34) SECONDS Puncture Site pCO2 (35-45) mm/Hg pO2 (80-100) mm/Hg HCO3 (21-28) mmol/L ABG pH (7.35-7.45) ABG Total CO2 (22-28) mmol/L ABG O2 Saturation (95-98) % ABG Base Excess (-2.0-3.0) mmol/L ABG Hemoglobin (11.7-17.4) g/dL ABG Carboxyhemoglobin (0.5-1.5) % POC ABG HHb (Measured) (0.0-5.0) % ABG Methemoglobin (0.0-3.0) % Luis Carlos Test A-a O2 Difference mm/Hg Respiratory Index Hgb O2 Saturation (95.0-98.0) % Liter Flow Vent Mode FiO2 % Inspiratory BiPAP Expiratory BiPAP Sodium (132-148) mmol/L Potassium (3.6-5.2) mmol/L Chloride (98-107) mmol/L Carbon Dioxide (22-30) mmol/L Anion Gap (10-20) BUN (9-20) mg/dL Creatinine (0.8-1.5) mg/dL Est GFR ( Amer) Est GFR (Non-Af Amer) POC Glucose (mg/dL) 197 H (65-110) mg/dL Random Glucose (75-110) mg/dL Calcium (8.6-10.4) mg/dl Phosphorus (2.5-4.5) mg/dL Magnesium (1.6-2.3) mg/dL Total Bilirubin (0.2-1.3) mg/dL AST (17-59) U/L ALT (21-72) U/L Alkaline Phosphatase (38-126) U/L Total Creatine Kinase (55-170) U/L CK-MB (Mass) (0.0-3.38) ng/mL Troponin I, Quant (0.00-0.120) ng/mL Total Protein (6.3-8.3) g/dL Albumin (3.5-5.0) g/dL Globulin (2.2-3.9) gm/dL Albumin/Globulin Ratio (1.0-2.1) Urine Osmolality 322 (300-1000) mosm/kg Ur Random Sodium 32 mmol/L Ur Random Potassium 26.6 mmol/L RPR (NONREACTIVE) 07/04/17 07/04/17 07/04/17 Range/Units 10:00 07:22 06:13 WBC (4.8-10.8) K/uL RBC (4.40-5.90) Mil/uL Hgb (12.0-18.0) g/dL Hct (35.0-51.0) % MCV (80.0-94.0) fL MCH (27.0-31.0) pg MCHC (33.0-37.0) g/dL RDW (11.5-14.5) % Plt Count (130-400) K/uL MPV (7.2-11.7) fL Neut % (Auto) (50.0-75.0) % Lymph % (Auto) (20.0-40.0) % [place] % (Auto) (0.0-10.0) % Eos % (Auto) (0.0-4.0) % Baso % (Auto) (0.0-2.0) % Neut # (1.8-7.0) K/uL Lymph # (1.0-4.3) K/uL [place] # (0.0-0.8) K/uL Eos # (0.0-0.7) K/uL Baso # (0.0-0.2) K/uL Neutrophils % (Manual) (50-75) % Band Neutrophils % (0-2) % Lymphocytes % (Manual) (20-40) % Monocytes % (Manual) (0-10) % Eosinophils % (Manual) (0-4) % Platelet Estimate (NORMAL) Polychromasia Hypochromasia (manual) Poikilocytosis (manual Anisocytosis (manual) Microcytosis (manual) Macrocytosis (manual) Ovalocytes PT (9.7-12.2) SECONDS INR APTT (21-34) SECONDS Puncture Site Rr pCO2 53 H (35-45) mm/Hg pO2 86 (80-100) mm/Hg HCO3 28.1 H (21-28) mmol/L ABG pH 7.37 (7.35-7.45) ABG Total CO2 32.2 H (22-28) mmol/L ABG O2 Saturation 97.7 (95-98) % ABG Base Excess 4.2 H (-2.0-3.0) mmol/L ABG Hemoglobin 12.4 (11.7-17.4) g/dL ABG Carboxyhemoglobin 2.9 H (0.5-1.5) % POC ABG HHb (Measured) 2.2 (0.0-5.0) % ABG Methemoglobin 1.2 (0.0-3.0) % Luis Carlos Test Pos A-a O2 Difference 83.0 mm/Hg Respiratory Index 1.0 Hgb O2 Saturation 93.7 L (95.0-98.0) % Liter Flow 3.0 Vent Mode FiO2 33.0 % Inspiratory BiPAP Expiratory BiPAP Sodium 133 (132-148) mmol/L Potassium 4.3 (3.6-5.2) mmol/L Chloride 99 (98-107) mmol/L Carbon Dioxide 25 (22-30) mmol/L Anion Gap 13 (10-20) BUN 31 H (9-20) mg/dL Creatinine 1.9 H (0.8-1.5) mg/dL Est GFR ( Amer) 43 Est GFR (Non-Af Amer) 36 POC Glucose (mg/dL) 169 H (65-110) mg/dL Random Glucose 199 H (75-110) mg/dL Calcium 8.0 L (8.6-10.4) mg/dl Phosphorus 3.8 (2.5-4.5) mg/dL Magnesium 2.0 (1.6-2.3) mg/dL Total Bilirubin 0.8 (0.2-1.3) mg/dL AST 31 (17-59) U/L ALT 52 (21-72) U/L Alkaline Phosphatase 64 (38-126) U/L Total Creatine Kinase 74 (55-170) U/L CK-MB (Mass) 2.27 (0.0-3.38) ng/mL Troponin I, Quant 0.3280 H* (0.00-0.120) ng/mL Total Protein 6.6 (6.3-8.3) g/dL Albumin 2.8 L (3.5-5.0) g/dL Globulin 3.9 (2.2-3.9) gm/dL Albumin/Globulin Ratio 0.7 L (1.0-2.1) Urine Osmolality (300-1000) mosm/kg Ur Random Sodium mmol/L Ur Random Potassium mmol/L RPR (NONREACTIVE) 07/04/17 07/03/17 07/03/17 Range/Units 06:13 21:30 17:06 WBC 10.5 (4.8-10.8) K/uL RBC 3.79 L (4.40-5.90) Mil/uL Hgb 10.5 L (12.0-18.0) g/dL Hct 33.2 L (35.0-51.0) % MCV 87.4 (80.0-94.0) fL MCH 27.8 (27.0-31.0) pg MCHC 31.8 L (33.0-37.0) g/dL RDW 18.1 H (11.5-14.5) % Plt Count 264 (130-400) K/uL MPV 8.5 (7.2-11.7) fL Neut % (Auto) 83.1 H (50.0-75.0) % Lymph % (Auto) 9.7 L (20.0-40.0) % [place] % (Auto) 5.1 (0.0-10.0) % Eos % (Auto) 1.4 (0.0-4.0) % Baso % (Auto) 0.7 (0.0-2.0) % Neut # 8.8 H (1.8-7.0) K/uL Lymph # 1.0 (1.0-4.3) K/uL [place] # 0.5 (0.0-0.8) K/uL Eos # 0.1 (0.0-0.7) K/uL Baso # 0.1 (0.0-0.2) K/uL Neutrophils % (Manual) 80 H (50-75) % Band Neutrophils % 1 (0-2) % Lymphocytes % (Manual) 10 L (20-40) % Monocytes % (Manual) 6 (0-10) % Eosinophils % (Manual) 3 (0-4) % Platelet Estimate Normal (NORMAL) Polychromasia Slight Hypochromasia (manual) Slight Poikilocytosis (manual Slight Anisocytosis (manual) Slight Microcytosis (manual) Slight Macrocytosis (manual) Slight Ovalocytes Slight PT (9.7-12.2) SECONDS INR APTT (21-34) SECONDS Puncture Site Rr pCO2 48 H (35-45) mm/Hg pO2 96 (80-100) mm/Hg HCO3 28.8 H (21-28) mmol/L ABG pH 7.41 (7.35-7.45) ABG Total CO2 31.9 H (22-28) mmol/L ABG O2 Saturation 98.7 H (95-98) % ABG Base Excess 5.0 H (-2.0-3.0) mmol/L ABG Hemoglobin 10.5 L (11.7-17.4) g/dL ABG Carboxyhemoglobin 2.8 H (0.5-1.5) % POC ABG HHb (Measured) 1.2 (0.0-5.0) % ABG Methemoglobin 1.2 (0.0-3.0) % Luis Carlos Test Po A-a O2 Difference 22.0 mm/Hg Respiratory Index 0.2 Hgb O2 Saturation 94.7 L (95.0-98.0) % Liter Flow Vent Mode Bipap FiO2 25.0 % Inspiratory BiPAP 14 Expiratory BiPAP 6 Sodium (132-148) mmol/L Potassium (3.6-5.2) mmol/L Chloride (98-107) mmol/L Carbon Dioxide (22-30) mmol/L Anion Gap (10-20) BUN (9-20) mg/dL Creatinine (0.8-1.5) mg/dL Est GFR ( Amer) Est GFR (Non-Af Amer) POC Glucose (mg/dL) 120 H (65-110) mg/dL Random Glucose (75-110) mg/dL Calcium (8.6-10.4) mg/dl Phosphorus (2.5-4.5) mg/dL Magnesium (1.6-2.3) mg/dL Total Bilirubin (0.2-1.3) mg/dL AST (17-59) U/L ALT (21-72) U/L Alkaline Phosphatase (38-126) U/L Total Creatine Kinase (55-170) U/L CK-MB (Mass) (0.0-3.38) ng/mL Troponin I, Quant (0.00-0.120) ng/mL Total Protein (6.3-8.3) g/dL Albumin (3.5-5.0) g/dL Globulin (2.2-3.9) gm/dL Albumin/Globulin Ratio (1.0-2.1) Urine Osmolality (300-1000) mosm/kg Ur Random Sodium mmol/L Ur Random Potassium mmol/L RPR (NONREACTIVE) 07/03/17 07/03/17 07/03/17 Range/Units 16:34 15:23 08:14 WBC (4.8-10.8) K/uL RBC (4.40-5.90) Mil/uL Hgb (12.0-18.0) g/dL Hct (35.0-51.0) % MCV (80.0-94.0) fL MCH (27.0-31.0) pg MCHC (33.0-37.0) g/dL RDW (11.5-14.5) % Plt Count (130-400) K/uL MPV (7.2-11.7) fL Neut % (Auto) (50.0-75.0) % Lymph % (Auto) (20.0-40.0) % [place] % (Auto) (0.0-10.0) % Eos % (Auto) (0.0-4.0) % Baso % (Auto) (0.0-2.0) % Neut # (1.8-7.0) K/uL Lymph # (1.0-4.3) K/uL [place] # (0.0-0.8) K/uL Eos # (0.0-0.7) K/uL Baso # (0.0-0.2) K/uL Neutrophils % (Manual) (50-75) % Band Neutrophils % (0-2) % Lymphocytes % (Manual) (20-40) % Monocytes % (Manual) (0-10) % Eosinophils % (Manual) (0-4) % Platelet Estimate (NORMAL) Polychromasia Hypochromasia (manual) Poikilocytosis (manual Anisocytosis (manual) Microcytosis (manual) Macrocytosis (manual) Ovalocytes PT (9.7-12.2) SECONDS INR APTT (21-34) SECONDS Puncture Site pCO2 (35-45) mm/Hg pO2 (80-100) mm/Hg HCO3 (21-28) mmol/L ABG pH (7.35-7.45) ABG Total CO2 (22-28) mmol/L ABG O2 Saturation (95-98) % ABG Base Excess (-2.0-3.0) mmol/L ABG Hemoglobin (11.7-17.4) g/dL ABG Carboxyhemoglobin (0.5-1.5) % POC ABG HHb (Measured) (0.0-5.0) % ABG Methemoglobin (0.0-3.0) % Luis Carlos Test A-a O2 Difference mm/Hg Respiratory Index Hgb O2 Saturation (95.0-98.0) % Liter Flow Vent Mode FiO2 % Inspiratory BiPAP Expiratory BiPAP Sodium (132-148) mmol/L Potassium (3.6-5.2) mmol/L Chloride (98-107) mmol/L Carbon Dioxide (22-30) mmol/L Anion Gap (10-20) BUN (9-20) mg/dL Creatinine (0.8-1.5) mg/dL Est GFR ( Amer) Est GFR (Non-Af Amer) POC Glucose (mg/dL) 177 H (65-110) mg/dL Random Glucose (75-110) mg/dL Calcium (8.6-10.4) mg/dl Phosphorus (2.5-4.5) mg/dL Magnesium (1.6-2.3) mg/dL Total Bilirubin (0.2-1.3) mg/dL AST (17-59) U/L ALT (21-72) U/L Alkaline Phosphatase (38-126) U/L Total Creatine Kinase 105 (55-170) U/L CK-MB (Mass) 3.22 (0.0-3.38) ng/mL Troponin I, Quant 0.1320 H* (0.00-0.120) ng/mL Total Protein (6.3-8.3) g/dL Albumin (3.5-5.0) g/dL Globulin (2.2-3.9) gm/dL Albumin/Globulin Ratio (1.0-2.1) Urine Osmolality (300-1000) mosm/kg Ur Random Sodium mmol/L Ur Random Potassium mmol/L RPR Nonreactive (NONREACTIVE) Laboratory Results - last 24 hr 07/03/17 07/03/17 07/03/17 08:14 15:23 16:34 WBC RBC Hgb Hct MCV MCH MCHC RDW Plt Count MPV Neut % (Auto) Lymph % (Auto) [place] % (Auto) Eos % (Auto) Baso % (Auto) Neut # Lymph # [place] # Eos # Baso # Neutrophils % (Manual) Band Neutrophils % Lymphocytes % (Manual) Monocytes % (Manual) Eosinophils % (Manual) Platelet Estimate Polychromasia Hypochromasia (manual) Poikilocytosis (manual Anisocytosis (manual) Microcytosis (manual) Macrocytosis (manual) Ovalocytes PT INR APTT Puncture Site pCO2 pO2 HCO3 ABG pH ABG Total CO2 ABG O2 Saturation ABG Base Excess ABG Hemoglobin ABG Carboxyhemoglobin POC ABG HHb (Measured) ABG Methemoglobin Luis Carlos Test A-a O2 Difference Respiratory Index Hgb O2 Saturation Liter Flow Vent Mode FiO2 Inspiratory BiPAP Expiratory BiPAP Sodium Potassium Chloride Carbon Dioxide Anion Gap BUN Creatinine Est GFR ( Amer) Est GFR (Non-Af Amer) POC Glucose (mg/dL) 177 H Random Glucose Calcium Phosphorus Magnesium Total Bilirubin AST ALT Alkaline Phosphatase Total Creatine Kinase 105 CK-MB (Mass) 3.22 Troponin I, Quant 0.1320 H* Total Protein Albumin Globulin Albumin/Globulin Ratio Urine Osmolality Ur Random Sodium Ur Random Potassium RPR Nonreactive 07/03/17 07/03/17 07/04/17 17:06 21:30 06:13 WBC 10.5 RBC 3.79 L Hgb 10.5 L Hct 33.2 L MCV 87.4 MCH 27.8 MCHC 31.8 L RDW 18.1 H Plt Count 264 MPV 8.5 Neut % (Auto) 83.1 H Lymph % (Auto) 9.7 L [place] % (Auto) 5.1 Eos % (Auto) 1.4 Baso % (Auto) 0.7 Neut # 8.8 H Lymph # 1.0 [place] # 0.5 Eos # 0.1 Baso # 0.1 Neutrophils % (Manual) 80 H Band Neutrophils % 1 Lymphocytes % (Manual) 10 L Monocytes % (Manual) 6 Eosinophils % (Manual) 3 Platelet Estimate Normal Polychromasia Slight Hypochromasia (manual) Slight Poikilocytosis (manual Slight Anisocytosis (manual) Slight Microcytosis (manual) Slight Macrocytosis (manual) Slight Ovalocytes Slight PT INR APTT Puncture Site Rr pCO2 48 H pO2 96 HCO3 28.8 H ABG pH 7.41 ABG Total CO2 31.9 H ABG O2 Saturation 98.7 H ABG Base Excess 5.0 H ABG Hemoglobin 10.5 L ABG Carboxyhemoglobin 2.8 H POC ABG HHb (Measured) 1.2 ABG Methemoglobin 1.2 Luis Carlos Test Po A-a O2 Difference 22.0 Respiratory Index 0.2 Hgb O2 Saturation 94.7 L Liter Flow Vent Mode Bipap FiO2 25.0 Inspiratory BiPAP 14 Expiratory BiPAP 6 Sodium Potassium Chloride Carbon Dioxide Anion Gap BUN Creatinine Est GFR ( Amer) Est GFR (Non-Af Amer) POC Glucose (mg/dL) 120 H Random Glucose Calcium Phosphorus Magnesium Total Bilirubin AST ALT Alkaline Phosphatase Total Creatine Kinase CK-MB (Mass) Troponin I, Quant Total Protein Albumin Globulin Albumin/Globulin Ratio Urine Osmolality Ur Random Sodium Ur Random Potassium RPR 07/04/17 07/04/17 07/04/17 06:13 07:22 10:00 WBC RBC Hgb Hct MCV MCH MCHC RDW Plt Count MPV Neut % (Auto) Lymph % (Auto) [place] % (Auto) Eos % (Auto) Baso % (Auto) Neut # Lymph # [place] # Eos # Baso # Neutrophils % (Manual) Band Neutrophils % Lymphocytes % (Manual) Monocytes % (Manual) Eosinophils % (Manual) Platelet Estimate Polychromasia Hypochromasia (manual) Poikilocytosis (manual Anisocytosis (manual) Microcytosis (manual) Macrocytosis (manual) Ovalocytes PT INR APTT Puncture Site Rr pCO2 53 H pO2 86 HCO3 28.1 H ABG pH 7.37 ABG Total CO2 32.2 H ABG O2 Saturation 97.7 ABG Base Excess 4.2 H ABG Hemoglobin 12.4 ABG Carboxyhemoglobin 2.9 H POC ABG HHb (Measured) 2.2 ABG Methemoglobin 1.2 Luis Carlos Test Pos A-a O2 Difference 83.0 Respiratory Index 1.0 Hgb O2 Saturation 93.7 L Liter Flow 3.0 Vent Mode FiO2 33.0 Inspiratory BiPAP Expiratory BiPAP Sodium 133 Potassium 4.3 Chloride 99 Carbon Dioxide 25 Anion Gap 13 BUN 31 H Creatinine 1.9 H Est GFR ( Amer) 43 Est GFR (Non-Af Amer) 36 POC Glucose (mg/dL) 169 H Random Glucose 199 H Calcium 8.0 L Phosphorus 3.8 Magnesium 2.0 Total Bilirubin 0.8 AST 31 ALT 52 Alkaline Phosphatase 64 Total Creatine Kinase 74 CK-MB (Mass) 2.27 Troponin I, Quant 0.3280 H* Total Protein 6.6 Albumin 2.8 L Globulin 3.9 Albumin/Globulin Ratio 0.7 L Urine Osmolality Ur Random Sodium Ur Random Potassium RPR 07/04/17 07/04/17 07/04/17 11:07 12:21 12:46 WBC RBC Hgb Hct MCV MCH MCHC RDW Plt Count MPV Neut % (Auto) Lymph % (Auto) [place] % (Auto) Eos % (Auto) Baso % (Auto) Neut # Lymph # [place] # Eos # Baso # Neutrophils % (Manual) Band Neutrophils % Lymphocytes % (Manual) Monocytes % (Manual) Eosinophils % (Manual) Platelet Estimate Polychromasia Hypochromasia (manual) Poikilocytosis (manual Anisocytosis (manual) Microcytosis (manual) Macrocytosis (manual) Ovalocytes PT 12.0 INR 1.1 APTT 31 Puncture Site pCO2 pO2 HCO3 ABG pH ABG Total CO2 ABG O2 Saturation ABG Base Excess ABG Hemoglobin ABG Carboxyhemoglobin POC ABG HHb (Measured) ABG Methemoglobin [place] Test A-a O2 Difference Respiratory Index Hgb O2 Saturation Liter Flow Vent Mode FiO2 Inspiratory BiPAP Expiratory BiPAP Sodium Potassium Chloride Carbon Dioxide Anion Gap BUN Creatinine Est GFR ( Amer) Est GFR (Non-Af Amer) POC Glucose (mg/dL) 197 H Random Glucose Calcium Phosphorus Magnesium Total Bilirubin AST ALT Alkaline Phosphatase Total Creatine Kinase CK-MB (Mass) Troponin I, Quant Total Protein Albumin Globulin Albumin/Globulin Ratio Urine Osmolality 322 Ur Random Sodium 32 Ur Random Potassium 26.6 RPR Fingerstick Blood Sugar Results: 197 Review of Systems - Review of Systems All systems: reviewed and no additional remarkable complaints except Critical Care Progress Note - Nutrition Nutrition: Nutrition Category Date Time Status Heart Healthy Diet [DIET] Diets 07/04/17 Breakfast Active Assessment/Plan (1) Hypercapnic respiratory failure, chronic Assessment and plan: Continue to monitor the ABG BiPAP as needed and at night Sleep study as outpatient Continue Lasix for CHF Cardiology evaluation Renal insufficiency noted Insulin sliding scale Reduce dextrose fluid to 30 mL an hour Swallowing evaluation Case discussed with family at length Current Visit: Yes Status: Acute (2) Pulmonary edema Current Visit: Yes Status: Acute
[2017-07-04] MEDS ORDERED: Labetalol 25mg/5ml Syringe IVP STA (15:21)
--- NOTE | 2017-07-04 15:34 | CP.PCM.PN ---
Subjective - Date & Time of Evaluation Date of Evaluation: 07/04/17 Time of Evaluation: 08:30 - Subjective Subjective: Patient seen, still in ICU on BIPAP, now conversant and oriented tmes 3 at bedside discussion of DM- starting from zero patient aware troponins elevated- discussed Objective - Vital Signs/Intake and Output Vital Signs (last 24 hours): Temp Pulse Resp BP Pulse Ox 98 F 89 22 134/77 96 07/04/17 08:00 07/04/17 12:30 07/04/17 12:02 07/04/17 12:02 07/04/17 12:02 Intake and Output: 07/04/17 07/04/17 06:59 18:59 Intake Total 600 440 Output Total 700 490 Balance -100 -50 - Medications Medications: Current Medications Allopurinol (Zyloprim) 100 mg PO DAILY [facility] Last Admin: 07/04/17 09:09 Dose: 100 mg Aspirin (Ecotrin) 81 mg PO DAILY [facility] Last Admin: 07/04/17 13:58 Dose: 81 mg Famotidine (Pepcid) 20 mg IVP DAILY [facility] Last Admin: 07/04/17 09:08 Dose: 20 mg Furosemide (Lasix) 40 mg IVP Q12 [facility] Last Admin: 07/04/17 09:09 Dose: 40 mg Hydralazine HCl (Apresoline) 10 mg IVP Q6H [facility] Last Admin: 07/04/17 11:36 Dose: 10 mg Dextrose (Dextrose 10% In Water) 1,000 mls @ 30 mls/hr IV .Q24H [facility] Last Admin: 07/04/17 10:29 Dose: 30 mls/hr Heparin Sodium/Sodium Chloride (Heparin 59692 Units/250ml 1/2 Normal Saline) 25 ,000 units in 250 mls @ 11.213 mls/hr IV .[id number] PRN; Protocol; 12 UNITS/KG/HR PRN Reason: ADJUST RATE PER PROTOCOL Last Admin: 07/04/17 13:45 Dose: 12 units/kg/hr, 11.213 mls/hr Insulin Human Regular (Novolin R) 0 unit SC ACHS [facility] PRN Reason: Protocol Last Admin: 07/04/17 12:02 Dose: 1 unit Metoprolol Tartrate (Lopressor) 25 mg PO BID [facility] Last Admin: 10/14/17 09:09 Dose: 25 mg Rosuvastatin Calcium (Crestor) 10 mg PO HS [facility] Last Admin: 07/03/17 21:04 Dose: 10 mg - Labs Labs: 07/04/17 06:13 07/04/17 06:13 PT 12.0 SECONDS (9.7-12.2) 07/04/17 12:46 INR 1.1 07/04/17 12:46 APTT 31 SECONDS (21-34) 07/04/17 12:46 - Constitutional Appears: Other (awake. alert oriented now, ) - Head Exam Head Exam: ATRAUMATIC, NORMOCEPHALIC - Eye Exam Eye Exam: Normal appearance - ENT Exam ENT Exam: Mucous Membranes Moist - Respiratory Exam Respiratory Exam: Clear to Ausculation Bilateral - Cardiovascular Exam Cardiovascular Exam: REGULAR RHYTHM - GI/Abdominal Exam GI & Abdominal Exam: Soft, Normal Bowel Sounds. absent: Tenderness - Back Exam Back Exam: NORMAL INSPECTION - Neurological Exam Neurological Exam: Alert, Awake, Oriented x3 (in ICU bed) - Psychiatric Exam Psychiatric exam: Normal Affect, Normal Mood - Skin Skin Exam: Intact, Normal Color Assessment and Plan - Assessment and Plan (Free Text) Assessment: Patient with IDDM with Hypoglycemia with Pulmonary Edema=lasix fluid control Hypertension Respiratory distress-on BIPAP with improvement CRI - CAD S.p CABG with elevated troponinsfurther evaluation patient and aware of condition and further plan may start feeding continue close monitoring
--- NOTE | 2017-07-04 16:49 | CP.PCM.CON ---
History of Present Illness - History of Present Illness History of Present Illness: pt is seen and examined, full consult is dictated #[id number] Past Patient History - Infectious Disease Hx of Infectious Diseases: None - Past Medical History & Family History Past Medical History?: Yes - Past Social History Smoking Status: Never Smoked - CARDIAC Hx Cardiac Disorders: Yes Hx Congestive Heart Failure: Yes Hx Hypercholesterolemia: Yes Hx Hypertension: Yes - PULMONARY Hx Respiratory Disorders: No - NEUROLOGICAL Other/Comment: stroke 2012 - HEENT Hx HEENT Problems: No - RENAL Hx Chronic Kidney Disease: Yes Other/Comment: CRI - ENDOCRINE/METABOLIC Hx Diabetes Mellitus Type 2: Yes - HEMATOLOGICAL/ONCOLOGICAL Hx Blood Disorders: No - INTEGUMENTARY Hx Dermatological Problems: No - MUSCULOSKELETAL/RHEUMATOLOGICAL Hx Musculoskeletal Disorders: No Hx Falls: Yes - GASTROINTESTINAL Hx Gastrointestinal Disorders: No - GENITOURINARY/GYNECOLOGICAL Hx Genitourinary Disorders: No - PSYCHIATRIC Hx Substance Use: No - SURGICAL HISTORY Other/Comment: triple by pass 2006 - ANESTHESIA Hx Anesthesia: Yes Meds Allergies/Adverse Reactions: Allergies Allergy/AdvReac Type Severity Reaction Status Date / Time No Known Allergies Allergy Verified 07/02/17 14:39 - Medications Medications: Current Medications Allopurinol (Zyloprim) 100 mg PO DAILY [facility] Last Admin: 07/04/17 09:09 Dose: 100 mg Aspirin (Ecotrin) 81 mg PO DAILY [facility] Last Admin: 07/04/17 13:58 Dose: 81 mg Famotidine (Pepcid) 20 mg IVP DAILY [facility] Last Admin: 07/04/17 09:08 Dose: 20 mg Furosemide (Lasix) 40 mg IVP Q12 [facility] Last Admin: 07/04/17 09:09 Dose: 40 mg Hydralazine HCl (Apresoline) 10 mg IVP Q6H [facility] Last Admin: 07/04/17 11:36 Dose: 10 mg Dextrose (Dextrose 10% In Water) 1,000 mls @ 30 mls/hr IV .Q24H [facility] Last Admin: 07/04/17 10:29 Dose: 30 mls/hr Heparin Sodium/Sodium Chloride (Heparin 88484 Units/250ml 1/2 Normal Saline) 25 ,000 units in 250 mls @ 11.213 mls/hr IV .[id number] PRN; Protocol; 12 UNITS/KG/HR PRN Reason: ADJUST RATE PER PROTOCOL Last Admin: 07/04/17 13:45 Dose: 12 units/kg/hr, 11.213 mls/hr Insulin Human Regular (Novolin R) 0 unit SC ACHS [facility] PRN Reason: Protocol Last Admin: 07/04/17 12:02 Dose: 1 unit Metoprolol Tartrate (Lopressor) 25 mg PO BID [facility] Last Admin: 07/04/17 09:09 Dose: 25 mg Rosuvastatin Calcium (Crestor) 10 mg PO HS [facility] Last Admin: 07/03/17 21:04 Dose: 10 mg Results - Vital Signs Recent Vital Signs: Last Vital Signs Temp 98 F 07/04/17 08:00 Pulse 88 07/04/17 15:40 Resp 18 07/04/17 15:40 BP 152/93 H 07/04/17 15:40 Pulse Ox 98 07/04/17 15:40 - Labs Result Diagrams: 07/04/17 06:13 07/04/17 06:13 Labs: Laboratory Results - last 24 hr 07/03/17 07/03/17 07/03/17 08:14 17:06 21:30 WBC RBC Hgb Hct MCV MCH MCHC RDW Plt Count MPV Neut % (Auto) Lymph % (Auto) [place] % (Auto) Eos % (Auto) Baso % (Auto) Neut # Lymph # [place] # Eos # Baso # Neutrophils % (Manual) Band Neutrophils % Lymphocytes % (Manual) Monocytes % (Manual) Eosinophils % (Manual) Platelet Estimate Polychromasia Hypochromasia (manual) Poikilocytosis (manual Anisocytosis (manual) Microcytosis (manual) Macrocytosis (manual) Ovalocytes PT INR APTT Puncture Site Rr pCO2 48 H pO2 96 HCO3 28.8 H ABG pH 7.41 ABG Total CO2 31.9 H ABG O2 Saturation 98.7 H ABG Base Excess 5.0 H ABG Hemoglobin 10.5 L ABG Carboxyhemoglobin 2.8 H POC ABG HHb (Measured) 1.2 ABG Methemoglobin 1.2 [place] Test Po A-a O2 Difference 22.0 Respiratory Index 0.2 Hgb O2 Saturation 94.7 L Liter Flow Vent Mode Bipap FiO2 25.0 Inspiratory BiPAP 14 Expiratory BiPAP 6 Sodium Potassium Chloride Carbon Dioxide Anion Gap BUN Creatinine Est GFR ( Amer) Est GFR (Non-Af Amer) POC Glucose (mg/dL) 120 H Random Glucose Calcium Phosphorus Magnesium Total Bilirubin AST ALT Alkaline Phosphatase Total Creatine Kinase CK-MB (Mass) Troponin I, Quant Total Protein Albumin Globulin Albumin/Globulin Ratio Urine Osmolality Ur Random Sodium Ur Random Potassium RPR Nonreactive 07/04/17 07/04/17 07/04/17 06:13 06:13 07:22 WBC 10.5 RBC 3.79 L Hgb 10.5 L Hct 33.2 L MCV 87.4 MCH 27.8 MCHC 31.8 L RDW 18.1 H Plt Count 264 MPV 8.5 Neut % (Auto) 83.1 H Lymph % (Auto) 9.7 L [place] % (Auto) 5.1 Eos % (Auto) 1.4 Baso % (Auto) 0.7 Neut # 8.8 H Lymph # 1.0 [place] # 0.5 Eos # 0.1 Baso # 0.1 Neutrophils % (Manual) 80 H Band Neutrophils % 1 Lymphocytes % (Manual) 10 L Monocytes % (Manual) 6 Eosinophils % (Manual) 3 Platelet Estimate Normal Polychromasia Slight Hypochromasia (manual) Slight Poikilocytosis (manual Slight Anisocytosis (manual) Slight Microcytosis (manual) Slight Macrocytosis (manual) Slight Ovalocytes Slight PT INR APTT Puncture Site pCO2 pO2 HCO3 ABG pH ABG Total CO2 ABG O2 Saturation ABG Base Excess ABG Hemoglobin ABG Carboxyhemoglobin POC ABG HHb (Measured) ABG Methemoglobin [place] Test A-a O2 Difference Respiratory Index Hgb O2 Saturation Liter Flow Vent Mode FiO2 Inspiratory BiPAP Expiratory BiPAP Sodium 133 Potassium 4.3 Chloride 99 Carbon Dioxide 25 Anion Gap 13 BUN 31 H Creatinine 1.9 H Est GFR ( Amer) 43 Est GFR (Non-Af Amer) 36 POC Glucose (mg/dL) 169 H Random Glucose 199 H Calcium 8.0 L Phosphorus 3.8 Magnesium 2.0 Total Bilirubin 0.8 AST 31 ALT 52 Alkaline Phosphatase 64 Total Creatine Kinase 74 CK-MB (Mass) 2.27 Troponin I, Quant 0.3280 H* Total Protein 6.6 Albumin 2.8 L Globulin 3.9 Albumin/Globulin Ratio 0.7 L Urine Osmolality Ur Random Sodium Ur Random Potassium RPR 07/04/17 07/04/17 07/04/17 10:00 11:07 12:21 WBC RBC Hgb Hct MCV MCH MCHC RDW Plt Count MPV Neut % (Auto) Lymph % (Auto) [place] % (Auto) Eos % (Auto) Baso % (Auto) Neut # Lymph # [place] # Eos # Baso # Neutrophils % (Manual) Band Neutrophils % Lymphocytes % (Manual) Monocytes % (Manual) Eosinophils % (Manual) Platelet Estimate Polychromasia Hypochromasia (manual) Poikilocytosis (manual Anisocytosis (manual) Microcytosis (manual) Macrocytosis (manual) Ovalocytes PT INR APTT Puncture Site Rr pCO2 53 H pO2 86 HCO3 28.1 H ABG pH 7.37 ABG Total CO2 32.2 H ABG O2 Saturation 97.7 ABG Base Excess 4.2 H ABG Hemoglobin 12.4 ABG Carboxyhemoglobin 2.9 H POC ABG HHb (Measured) 2.2 ABG Methemoglobin 1.2 [place] Test Pos A-a O2 Difference 83.0 Respiratory Index 1.0 Hgb O2 Saturation 93.7 L Liter Flow 3.0 Vent Mode FiO2 33.0 Inspiratory BiPAP Expiratory BiPAP Sodium Potassium Chloride Carbon Dioxide Anion Gap BUN Creatinine Est GFR ( Amer) Est GFR (Non-Af Amer) POC Glucose (mg/dL) 197 H Random Glucose Calcium Phosphorus Magnesium Total Bilirubin AST ALT Alkaline Phosphatase Total Creatine Kinase CK-MB (Mass) Troponin I, Quant Total Protein Albumin Globulin Albumin/Globulin Ratio Urine Osmolality 322 Ur Random Sodium 32 Ur Random Potassium 26.6 RPR 07/04/17 07/04/17 12:46 16:32 WBC RBC Hgb Hct MCV MCH MCHC RDW Plt Count MPV Neut % (Auto) Lymph % (Auto) [place] % (Auto) Eos % (Auto) Baso % (Auto) Neut # Lymph # [place] # Eos # Baso # Neutrophils % (Manual) Band Neutrophils % Lymphocytes % (Manual) Monocytes % (Manual) Eosinophils % (Manual) Platelet Estimate Polychromasia Hypochromasia (manual) Poikilocytosis (manual Anisocytosis (manual) Microcytosis (manual) Macrocytosis (manual) Ovalocytes PT 12.0 INR 1.1 APTT 31 Puncture Site pCO2 pO2 HCO3 ABG pH ABG Total CO2 ABG O2 Saturation ABG Base Excess ABG Hemoglobin ABG Carboxyhemoglobin POC ABG HHb (Measured) ABG Methemoglobin [place] Test A-a O2 Difference Respiratory Index Hgb O2 Saturation Liter Flow Vent Mode FiO2 Inspiratory BiPAP Expiratory BiPAP Sodium Potassium Chloride Carbon Dioxide Anion Gap BUN Creatinine Est GFR ( Amer) Est GFR (Non-Af Amer) POC Glucose (mg/dL) 217 H Random Glucose Calcium Phosphorus Magnesium Total Bilirubin AST ALT Alkaline Phosphatase Total Creatine Kinase CK-MB (Mass) Troponin I, Quant Total Protein Albumin Globulin Albumin/Globulin Ratio Urine Osmolality Ur Random Sodium Ur Random Potassium RPR
--- NOTE | 2017-07-04 19:03 | RAD ---
HISTORY: SHORTNESS OF BREATH COMPARISON: Comparison is made to 07/02/2017 FINDINGS: LUNGS: Again seen are patchy opacities in both lungs. The right lung appears smaller than the left which could be due to partial atelectasis. PLEURA: Blunting of the right costophrenic angle suggestive of small pleural effusion CARDIOVASCULAR: The cardiac silhouette is moderately enlarged. Post sternotomy changes are again seen. OSSEOUS STRUCTURES: No significant abnormalities. VISUALIZED UPPER ABDOMEN: Normal. OTHER FINDINGS: None. IMPRESSION: Cardiomegaly. Patchy opacities in the lungs could be due to pulmonary congestion. The possibility of pneumonia is not totally excluded. Small right pleural effusion.
[2017-07-04 20:31] LABS: MEAN CELL VOLUME 87.3 fL (80.0-94.0); MEAN CORPUSCULAR HEMOGLOBIN 27.3 pg (27.0-31.0); MEAN CORPUSCULAR HGB CONC 31.3 g/dL (33.0-37.0); MEAN PLATELET VOLUME 8.5 fL (7.2-11.7); RED CELL DISTRIBUTION WIDTH 19.1 % (11.5-14.5); WHITE BLOOD COUNT 12.1 K/uL (4.8-10.8)
--- NOTE | 2017-07-04 21:00 | CP.PCM.PN ---
Subjective - Date & Time of Evaluation Date of Evaluation: 07/04/17 Time of Evaluation: 16:05 - Subjective Subjective: Patient with abnormal Troponin CAD h/o CABG admitted for chest pain ACS on IV Heparin Cath Thursday Needs renal clearance Physical Exam - Constitutional Appears: Non-toxic, No Acute Distress - Head Exam Head Exam: ATRAUMATIC - Eye Exam Eye Exam: EOMI, Normal appearance Pupil Exam: PERRL - ENT Exam ENT Exam: Mucous Membranes Moist - Respiratory Exam Respiratory Exam: NORMAL BREATHING PATTERN - Cardiovascular Exam Cardiovascular Exam: JVD, +S1, +S2 - GI/Abdominal Exam GI & Abdominal Exam: Soft - Extremities Exam Extremities exam: Positive for: full ROM, pedal edema - Psychiatric Exam Psychiatric exam: Flat Affect - Skin Skin Exam: Dry, Normal Color, Warm Objective - Vital Signs/Intake and Output Vital Signs (last 24 hours): Temp Pulse Resp BP Pulse Ox 98 F 92 H 27 H 163/90 H 98 07/04/17 08:00 07/04/17 20:40 07/04/17 20:40 07/04/17 20:40 07/04/17 20:40 Intake and Output: 07/04/17 07/05/17 18:59 06:59 Intake Total 976.0 82.4 Output Total 770 75 Balance 206.0 7.4 - Medications Medications: Current Medications Allopurinol (Zyloprim) 100 mg PO DAILY [facility] Last Admin: 07/04/17 09:09 Dose: 100 mg Aspirin (Ecotrin) 81 mg PO DAILY [facility] Last Admin: 07/04/17 13:58 Dose: 81 mg Famotidine (Pepcid) 20 mg IVP DAILY [facility] Last Admin: 07/04/17 09:08 Dose: 20 mg Furosemide (Lasix) 40 mg IVP Q12 [facility] Last Admin: 07/04/17 09:09 Dose: 40 mg Hydralazine HCl (Apresoline) 10 mg IVP Q6H [facility] Last Admin: 07/04/17 17:16 Dose: 10 mg Dextrose (Dextrose 10% In Water) 1,000 mls @ 30 mls/hr IV .Q24H [facility] Last Admin: 07/04/17 10:29 Dose: 30 mls/hr Heparin Sodium/Sodium Chloride (Heparin 14300 Units/250ml 1/2 Normal Saline) 25 ,000 units in 250 mls @ 11.213 mls/hr IV .[id number] PRN; Protocol; 12 UNITS/KG/HR PRN Reason: ADJUST RATE PER PROTOCOL Last Admin: 07/04/17 13:45 Dose: 12 units/kg/hr, 11.213 mls/hr Insulin Human Regular (Novolin R) 0 unit SC ACHS [facility] PRN Reason: Protocol Last Admin: 07/04/17 17:15 Dose: 3 unit Metoprolol Tartrate (Lopressor) 25 mg PO BID [facility] Last Admin: 07/04/17 17:19 Dose: 25 mg Rosuvastatin Calcium (Crestor) 10 mg PO HS [facility] Last Admin: 07/03/17 21:04 Dose: 10 mg - Labs Labs: 07/04/17 20:28 07/04/17 06:13 PT 12.0 SECONDS (9.7-12.2) 07/04/17 12:46 INR 1.1 07/04/17 12:46 APTT 31 SECONDS (21-34) 07/04/17 12:46 Assessment and Plan - Assessment and Plan (Free Text) Assessment: (1) CHF exacerbation Assessment and Plan: CXR- Interstitial prominence may reflect inection or edema; Small b/l pleural effusions. Mild biapical pleural thickening; cardiomegaly, ectatic aorta. On Lasix IV BID F/U ECHO. BNP 6460 Monitor Ins and outs and measure daily weights Status: Acute (2) Hypertension Assessment and Plan: On Metoprolol and Hydralazine Elevated overnight. Cont to monitor. Avoid IVF Status: Chronic (3) History of coronary artery bypass graft Assessment and Plan: Started Crestor 10 mg PO HS On Metoprolol BID Diet and exercise strongly encouraged Status: Chronic (4) Hypoglycemia Assessment and Plan: Likely the source of altered mentation Patient will need to be counseled on medication administration Parameters in place with sliding scale Status: Acute (5) History of diabetes mellitus Assessment and Plan: Accuchecks Sliding scale Hold Parameters in place A1c 6.8 Status: Chronic (6) History of TIA (transient ischemic attack) Assessment and Plan: Head CT- Refer to report Neuro on the case Cont to monitor Status: Acute (7) Hypercholesteremia Assessment and Plan: On Crestor Would benefit from diet and exercise Status: Chronic (8) Family history of cerebral aneurysm Assessment and Plan: Strong family history. Patient's counseled on the importance of testing children to rule out aneursyms. Head CT did not appear to show signs of aneurysmal disease. Neuro on case for AMS Status: Acute (9) Prophylactic measure Assessment and Plan: SCDs contraindicated due to swelling Heparin SC Q12 Pepcid 20 mg IV daily Status: Acute
--- NOTE | 2017-07-04 23:01 | PN ---
DATE: 07/04/2017 NEUROLOGIC PROBLEM: Toxic versus metabolic encephalopathy. PHYSICAL EXAMINATION: VITAL SIGNS: Blood pressure 170/95, mean arterial pressure of 118, pulse rate 78, on BiPAP very comfortable. NEUROLOGIC: The patient's mentation is much improved than yesterday. He follows commands. No long tract sign at present. His electroencephalogram have been reviewed, bilateral slow activities without any paroxysmal activities or focal slowing noted. RECOMMENDATION: Continue the present management. I will be followed closely with you. Arslan Carl MD
--- NOTE | 2017-07-05 05:13 | CON ---
DATE: RENAL CONSULTATION: REQUESTED BY: Paola Adams MD REASON FOR CONSULTATION: Increased BUN, creatinine, proteinuria, and CHF. HISTORY OF PRESENT ILLNESS: Mr. Flowers is a 67-year-old obese elderly [place] male with past medical history significant for diabetes, hypertension, hyperlipidemia for more than 20 years, coronary artery disease, status post CABG on 11/06/2005, history of TIA about 5 years ago, history of questionable aneurysm, was admitted with the chief complaints of congestive heart failure and fluid overload. As per the patient, prior to the admission, he was taking insulin overdose and became hypoglycemic, subsequently he regained mental status and went to the PMD office and PMD office was found the patient in fluid overload and sent to the emergency room for further evaluation and the patient was confirmed fluid overload and also hypoglycemic. The patient was given D50 and subsequently admitted to ICU for further management. The patient is receiving IV Lasix since admission and the patient is on BiPAP at this time. Complains feeling much better now, not in distress. Denies any chest pain, palpitation. Denies any fever, cough. Denies any abdominal pain. Denies any nausea, vomiting, diarrhea. Denies any dysuria or frequency. The patient has complaints of generalized body swelling for 2 weeks. As per the patient and the patient's , he was given fluids for the last 2 to 3 weeks, and his previous weight used to be 180 pounds and in the PMD office and in the hospital about 205 to 207 pounds on admission. PAST MEDICAL HISTORY: Significant for longstanding diabetes, hypertension for more than 20 years, hyperlipidemia, TIA and coronary artery disease. PAST SURGICAL HISTORY: Status post CABG on 11/06/2005. ALLERGIES: NO KNOWN DRUG ALLERGIES. FAMILY HISTORY: His father, mother and brother with intracranial aneurysm and 2 aunts on his mother's side and 1 nephew was treated for aneurysm. The patient is following with [facility] for possible aneurysm, no yearly MRI. SOCIAL HISTORY: The patient was a smoker for about 1 year, quit in 1972 and alcohol abuse. He denies any drug abuse. PERSONAL HISTORY: He is and he has 3 sons. CURRENT MEDICATIONS: His current medications include hydralazine 10 mg IV q.6 hours, Crestor 10 mg at bedtime, D10 at 30 mL per hour and aspirin 81 mg daily, IV heparin 12 units per hour and Lasix 40 mg IV q.12 hours, metoprolol 25 mg p.o. b.i.d., and Novolin as per sliding scale and Pepcid 20 mg IV daily, and allopurinol 100 mg p.o. daily. REVIEW OF SYSTEMS: Significant for hypoglycemia, shortness of breath, and fluid overload, weight gain about 25 to 26 pounds. PHYSICAL EXAMINATION: GENERAL: As follows, Mr. Flowers is a 67-year-old obese elderly [place] male, well-built, well-nourished, not in distress, on BiPAP. VITAL SIGNS: Blood pressure 152/93, pulse 88, respirations 18, temperature is 98, saturation is 98%, height 5 feet 6 inches, and weight is 207 pounds. BMI 33. HEENT: Pupils are normal and reactive to light and accommodation. Conjunctiva pink. Sclera anicteric. Tongue is moist. Trachea is midline. On BiPAP. No thyroid enlargement. LUNGS: Symmetric on both sides. Bilateral breath sounds present. Clear on auscultation. CVS: [place] at the fifth intercostal space, midclavicular line. S1 and S2 audible. No murmur or gallop. ABDOMEN: Normal in appearance, protuberant, soft, tympanic. No guarding. No rigidity. No hepatosplenomegaly. No abdominal bruit and the patient had midsternal scar from the previous CABG also. 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 Nonfocal on examination. Cranial nerves II through XII grossly intact. Sensory and motor system is within normal limits. EXTREMITIES: No cyanosis. No clubbing. The patient has trace edema in both lower extremities. Motor and sensory systems is grossly within normal limits. Deep tendon reflexes are normal. LABORATORY DATA: Include as follows as of 07/04/2017; WBC 10.5, hemoglobin 10.5, hematocrit is 33.2 and platelets 264, and pH is 7.37, pCO2 of 53, pO2 is 86, bicarb is 28 and saturation of 97.7. Sodium 133, potassium 4.3, chloride 99, CO2 of 25, BUN 31, creatinine 1.9, glucose 199, calcium 8, phosphorus 3.8, magnesium is 2, total bilirubin 0.8, AST 31, ALT 52, alkaline phosphatase 64, CK-MB 2.27, troponin 0.32, total protein 6.6, albumin is 3.8. Urine osmolality 322. Urine sodium is 32. Urine potassium 26.6. As of 07/03/2017, BUN and creatinine 29/1.8 and troponin 0.103 and also 0.132. CPK is 107 and 105 and RPR was negative. As of 07/02/2017, hemoglobin A1c 6.8 and CPK 131, and troponin 0.125, proBNP was 6460. As of 07/02/2017; BUN and creatinine 33/1.9. Sodium 135, potassium 4.2, chloride 99, CO2 of 28, glucose 93, calcium 8.3, magnesium 2.0. Urinalysis; yellow, clear, pH 5, specific gravity 1.011 and protein 3+ and glucose normal, ketones negative, blood 1+, nitrites negative, bilirubin negative, urobilinogen normal. Leukocyte esterase is negative. Wbc less than 1. Rbc less than 1, bacteria rare, and urine creatinine 118 and urine protein is 434. ASSESSMENT: In summary, Mr. Flowers is a 67-year-old elderly [place] male, obese with hypertension, diabetes, hyperlipidemia, coronary artery disease, questionable aneurysm, intracranial, followed in [facility], who was admitted for shortness of breath and fluid overload, hypoglycemia after taking insulin and increased ProBNP, and also proteinuria and increased BUN and creatinine, on BiPAP. 1. Chronic kidney disease, stage III, mostly likely secondary to diabetic nephropathy, cannot rule out underlying hypertensive nephrosclerosis versus chronic glomerulonephritis. 2. Hypertension. Blood pressure is stable. 3. Fluid overload. 4. Congestive heart failure. 5. Diabetes type 2. Sugars are under control. PLAN: Continue diuretics, continue his current medication, metoprolol and hydralazine. We will check hepatitis B and C serology, JOSY, compliment level C3 and C4, 24-hour urine protein and creatinine and creatinine clearance and also UPEP and ultrasound of the kidneys for size, restrict fluids to 1 liter per day. We will follow with you. Thank you for allowing me to participate in your patient's care. We will consider YOLANDA inhibitors after the workup. Thank you for allowing me to participate in your patient's care. Susana Jones MD [facility]
[2017-07-05 06:42] LABS: BASO % 0.4 % (0.0-2.0); EOS # 0.2 K/uL (0.0-0.7); EOS % 1.9 % (0.0-4.0); HEMATOCRIT 33.6 % (35.0-51.0); LYMPH # 0.9 K/uL (1.0-4.3); LYMPH % 9.2 % (20.0-40.0); MEAN CELL VOLUME 86.7 fL (80.0-94.0); MEAN CORPUSCULAR HEMOGLOBIN 27.2 pg (27.0-31.0); MEAN CORPUSCULAR HGB CONC 31.4 g/dL (33.0-37.0); MEAN PLATELET VOLUME 8.9 fL (7.2-11.7); MONO # 0.6 K/uL (0.0-0.8); MONO % 6.4 % (0.0-10.0); PLATELET COUNT 236 K/uL (130-400); RED CELL DISTRIBUTION WIDTH 18.8 % (11.5-14.5); WHITE BLOOD COUNT 10.1 K/uL (4.8-10.8)
[2017-07-05 06:53] LABS: CHLORIDE 97 mmol/L (98-107); POTASSIUM 3.8 mmol/L (3.6-5.2); SODIUM 132 mmol/L (132-148)
[2017-07-05 06:55] LABS: ALB/GLOB RATIO 0.7 (1.0-2.1); ALKALINE PHOSPHATASE 78 U/L (38-126); AST/SGOT 19 U/L (17-59); CARBON DIOXIDE 28 mmol/L (22-30); GFR AFRICAN-AMERICAN 53; TOTAL PROTEIN 7.2 g/dL (6.3-8.3)
[2017-07-05 06:56] LABS: ALT/SGPT 27 U/L (21-72); BLOOD UREA NITROGEN 29 mg/dL (9-20); CALCIUM 8.2 mg/dl (8.6-10.4); GLUCOSE,RANDOM 255 mg/dL (75-110); PHOSPHOROUS 4.3 mg/dL (2.5-4.5)
[2017-07-05] MEDS: (Novolin R) Insulin Human Regular 100 units/ml vial SC SCH ×4 (07:34→17:54)
--- NOTE | 2017-07-05 08:47 | CP.PCM.PN ---
Subjective - Date & Time of Evaluation Date of Evaluation: 07/05/17 Time of Evaluation: 09:30 - Subjective Subjective: patient seen,feeding self conversant awake alert reports constipation no BM for days, agreed to suppository on lasix , fluid restriction further renal and cardio evaluation Nurse repors BP on the high side Objective - Vital Signs/Intake and Output Vital Signs (last 24 hours): Temp Pulse Resp BP Pulse Ox 98.5 F 98 H 15 170/96 H 97 07/05/17 08:00 07/05/17 08:00 07/05/17 08:00 07/05/17 05:50 07/05/17 08:00 Intake and Output: 07/05/17 07/05/17 06:59 18:59 Intake Total 535.6 41.2 Output Total 1880 100 Balance -1344.4 -58.8 - Medications Medications: Current Medications Allopurinol (Zyloprim) 100 mg PO DAILY [facility] Last Admin: 07/04/17 09:09 Dose: 100 mg Aspirin (Ecotrin) 81 mg PO DAILY [facility] Last Admin: 07/04/17 13:58 Dose: 81 mg Famotidine (Pepcid) 20 mg IVP DAILY [facility] Last Admin: 07/04/17 09:08 Dose: 20 mg Furosemide (Lasix) 40 mg IVP Q12 [facility] Last Admin: 07/04/17 22:10 Dose: 40 mg Hydralazine HCl (Apresoline) 10 mg IVP Q6H [facility] Last Admin: 07/05/17 05:43 Dose: 10 mg Dextrose (Dextrose 10% In Water) 1,000 mls @ 30 mls/hr IV .Q24H [facility] Last Admin: 07/04/17 10:29 Dose: 30 mls/hr Heparin Sodium/Sodium Chloride (Heparin 66510 Units/250ml 1/2 Normal Saline) 25 ,000 units in 250 mls @ 11.213 mls/hr IV .[id number] PRN; Protocol; 12 UNITS/KG/HR PRN Reason: ADJUST RATE PER PROTOCOL Last Admin: 07/04/17 13:45 Dose: 12 units/kg/hr, 11.213 mls/hr Insulin Human Regular (Novolin R) 0 unit SC ACHS [facility] PRN Reason: Protocol Last Admin: 07/05/17 07:34 Dose: 2 unit Metoprolol Tartrate (Lopressor) 25 mg PO BID [facility] Last Admin: 07/04/17 17:19 Dose: 25 mg Rosuvastatin Calcium (Crestor) 10 mg PO HS [facility] Last Admin: 07/04/17 22:09 Dose: 10 mg - Labs Labs: 07/05/17 06:33 07/05/17 06:33 PT 12.0 SECONDS (9.7-12.2) 07/04/17 12:46 INR 1.1 07/04/17 12:46 APTT 93 SECONDS (21-34) H D 07/05/17 03:24 - Constitutional Appears: Well, No Acute Distress (alert awake oriented x 3) - Head Exam Head Exam: ATRAUMATIC, NORMOCEPHALIC - Eye Exam Eye Exam: Normal appearance - ENT Exam ENT Exam: Mucous Membranes Moist - Respiratory Exam Respiratory Exam: Clear to Ausculation Bilateral, NORMAL BREATHING PATTERN - GI/Abdominal Exam GI & Abdominal Exam: Soft, Normal Bowel Sounds. 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
[2017-07-05 08:52] LABS: EOSINOPHIL 1 % (0-4); NEUTROPHIL 81 % (50-75); TOTAL CELLS COUNTED 100
[2017-07-05 11:30] LABS: ABG ALLEN TEST POS; ARTERIAL BLOOD HGB O2 SAT 95.1 % (95.0-98.0); CARBOXYHEMOGLOBIN 2.9 % (0.5-1.5); DRAW SITE RR; HHB 1.2 % (0.0-5.0); METHEMOGLOBIN 0.8 % (0.0-3.0)
[2017-07-05] MEDS: Heparin25000 units/250ml 1/2NS 25,000 UNITS/250 ML BAG IV PRN (11:57)
--- NOTE | 2017-07-05 11:59 | CP.CCUPN ---
CCU Subjective - Physician Review Events Since Last Encounter (Free Text): 07/05/17 11:52 Patient seen and examined in the intensive care unit. Case discussed with house staff in the morning. Patient is alert oriented with periods of confusion Remains on BiPAP Afebrile Good urine output Good appetite CCU Objective - Vital Signs / Intake & Output Vital Signs (Last 4 hours): Vital Signs Temp Pulse Resp BP Pulse Ox 07/05/17 11:00 98 H 94 L 07/05/17 10:51 97 H 24 168/96 H 99 07/05/17 10:00 88 29 H 97 07/05/17 09:38 96 H 30 H 157/93 H 99 07/05/17 09:12 180/96 H 07/05/17 09:11 100 H 20 180/96 H 99 07/05/17 09:00 103 H 16 96 07/05/17 08:38 94 H 24 180/99 H 98 07/05/17 08:00 98.5 F 98 H 15 97 Intake and Output (Last 8hrs): Intake & Output 07/04/17 07/05/17 07/05/17 22:59 06:59 14:59 Intake Total 429.6 370.8 454.8 Output Total 375 1675 640 Balance 54.6 -1304.2 -185.2 Weight 201 lb 204 lb 12.8 oz Intake: Intake, IV Amount 329.6 370.8 104.8 Right Antecubital 89.6 100.8 44.8 right hand 240 270 60 Oral 100 350 Output: Urine 375 1675 640 Urethral ([place]) 375 1675 640 Other: # Bowel Movements 0 - Physical Exam Head: Positive for: Atraumatic, Normocephalic Conjunctiva: Positive for: Normal Mouth: Positive for: Moist Mucous Membranes Neck: Positive for: Normal Range of Motion Respiratory/Chest: Positive for: Rales. Negative for: Good Air Exchange, Accessory Muscle Use Cardiovascular: Positive for: Regular Rate and Rhythm, Normal S1, S2 Abdomen: Positive for: Distention, Normal Bowel Sounds. Negative for: Tenderness Upper Extremity: Positive for: Normal Inspection Lower Extremity: Positive for: Edema Skin: Positive for: Normal Color Psychiatric: Negative for: Alert - Medications Active Medications: Active Medications Generic Name Dose Route Start Last Admin Trade Name Freq PRN Reason Stop Dose Admin Allopurinol 100 mg 07/03/17 10:00 07/05/17 09:08 Zyloprim PO 100 mg DAILY RANDOLPH Administration Aspirin 81 mg 07/04/17 12:30 07/05/17 09:08 Ecotrin PO 81 mg DAILY RANDOLPH Administration Famotidine 20 mg 07/03/17 11:00 07/05/17 09:07 Pepcid IVP 20 mg DAILY RANDOLPH Administration Furosemide 40 mg 07/03/17 10:00 07/05/17 09:12 Lasix IVP 40 mg Q12 RANDOLPH Administration Hydralazine HCl 10 mg 07/03/17 11:04 07/05/17 05:43 Apresoline IVP 10 mg Q6H RANDOLPH Administration Heparin Sodium/Sodium Chloride 25,000 units in 250 mls @ 11.213 mls/hr 12:23 07/04/17 13:45 Heparin 60794 Units/250ml 1/2 Normal Saline IV 12 units/kg/hr .[id number] PRN 11.213 mls/hr ADJUST RATE PER PROTOCOL Administration Protocol 12 UNITS/KG/HR Insulin Human Regular 0 unit 07/03/17 07:30 07/05/17 07:34 Novolin R SC 2 unit ACHS RANDOLPH Administration Protocol Losartan Potassium 50 mg 07/05/17 10:00 07/05/17 09:33 Cozaar PO 50 mg BID RANDOLPH Administration Metoprolol Tartrate 25 mg 07/03/17 10:00 07/05/17 09:12 Lopressor PO 25 mg BID RANDOLPH Administration Rosuvastatin Calcium 10 mg 07/03/17 22:00 07/04/17 22:09 Crestor PO 10 mg HS RANDOLPH Administration - Patient Studies Lab Studies: Microbiology Studies 07/02/17 23:00 Blood Culture - Preliminary Blood-Venous NO GROWTH AFTER 48 HOURS 07/02/17 22:45 Blood Culture - Preliminary Blood-Venous NO GROWTH AFTER 48 HOURS 07/02/17 08:30 MRSA Culture (Admit) - Final Naris MRSA NOT DETECTED Lab Studies 07/05/17 07/05/17 07/05/17 Range/Units 11:26 07:18 06:33 WBC (4.8-10.8) K/uL RBC (4.40-5.90) Mil/uL Hgb (12.0-18.0) g/dL Hct (35.0-51.0) % MCV (80.0-94.0) fL MCH (27.0-31.0) pg MCHC (33.0-37.0) g/dL RDW (11.5-14.5) % Plt Count (130-400) K/uL MPV (7.2-11.7) fL Neut % (Auto) (50.0-75.0) % Lymph % (Auto) (20.0-40.0) % [place] % (Auto) (0.0-10.0) % Eos % (Auto) (0.0-4.0) % Baso % (Auto) (0.0-2.0) % Neut # (1.8-7.0) K/uL Lymph # (1.0-4.3) K/uL [place] # (0.0-0.8) K/uL Eos # (0.0-0.7) K/uL Baso # (0.0-0.2) K/uL Neutrophils % (Manual) (50-75) % Band Neutrophils % (0-2) % Lymphocytes % (Manual) (20-40) % Monocytes % (Manual) (0-10) % Eosinophils % (Manual) (0-4) % Platelet Estimate (NORMAL) Polychromasia Hypochromasia (manual) Poikilocytosis (manual Anisocytosis (manual) Microcytosis (manual) Macrocytosis (manual) Ovalocytes PT (9.7-12.2) SECONDS INR APTT (21-34) SECONDS Puncture Site Rr pCO2 54 H (35-45) mm/Hg pO2 124 H (80-100) mm/Hg HCO3 28.6 H (21-28) mmol/L ABG pH 7.37 (7.35-7.45) ABG Total CO2 32.9 H (22-28) mmol/L ABG O2 Saturation 98.8 H (95-98) % ABG Base Excess 4.8 H (-2.0-3.0) mmol/L ABG Hemoglobin 11.1 L (11.7-17.4) g/dL ABG Carboxyhemoglobin 2.9 H (0.5-1.5) % POC ABG HHb (Measured) 1.2 (0.0-5.0) % ABG Methemoglobin 0.8 (0.0-3.0) % Luis Carlos Test Pos A-a O2 Difference 44.0 mm/Hg Respiratory Index 0.4 Hgb O2 Saturation 95.1 (95.0-98.0) % Liter Flow 4.0 FiO2 33.0 % Sodium (132-148) mmol/L Potassium (3.6-5.2) mmol/L Chloride (98-107) mmol/L Carbon Dioxide (22-30) mmol/L Anion Gap (10-20) BUN (9-20) mg/dL Creatinine (0.8-1.5) mg/dL Est GFR ( Amer) Est GFR (Non-Af Amer) POC Glucose (mg/dL) 188 H (65-110) mg/dL Random Glucose (75-110) mg/dL Calcium (8.6-10.4) mg/dl Phosphorus (2.5-4.5) mg/dL Magnesium (1.6-2.3) mg/dL Total Bilirubin (0.2-1.3) mg/dL AST (17-59) U/L ALT (21-72) U/L Alkaline Phosphatase (38-126) U/L Total Creatine Kinase (55-170) U/L CK-MB (Mass) (0.0-3.38) ng/mL Troponin I, Quant (0.00-0.120) ng/mL Total Protein (6.3-8.3) g/dL Albumin (3.5-5.0) g/dL Globulin (2.2-3.9) gm/dL Albumin/Globulin Ratio (1.0-2.1) Urine Osmolality (300-1000) mosm/kg Ur Random Sodium mmol/L Ur Random Potassium mmol/L Complement C3 129.0 (88.0-165.0) mg/dL Complement C4 22.8 (14.0-44.0) mg/dL Hep Bs Antigen (NEGATIVE) 07/05/17 07/05/17 07/05/17 Range/Units 06:33 06:33 03:24 WBC 10.1 (4.8-10.8) K/uL RBC 3.88 L (4.40-5.90) Mil/uL Hgb 10.6 L (12.0-18.0) g/dL Hct 33.6 L (35.0-51.0) % MCV 86.7 (80.0-94.0) fL MCH 27.2 (27.0-31.0) pg MCHC 31.4 L (33.0-37.0) g/dL RDW 18.8 H (11.5-14.5) % Plt Count 236 (130-400) K/uL MPV 8.9 (7.2-11.7) fL Neut % (Auto) 82.1 H (50.0-75.0) % Lymph % (Auto) 9.2 L (20.0-40.0) % [place] % (Auto) 6.4 (0.0-10.0) % Eos % (Auto) 1.9 (0.0-4.0) % Baso % (Auto) 0.4 (0.0-2.0) % Neut # 8.3 H (1.8-7.0) K/uL Lymph # 0.9 L (1.0-4.3) K/uL [place] # 0.6 (0.0-0.8) K/uL Eos # 0.2 (0.0-0.7) K/uL Baso # 0.0 (0.0-0.2) K/uL Neutrophils % (Manual) 81 H (50-75) % Band Neutrophils % 1 (0-2) % Lymphocytes % (Manual) 11 L (20-40) % Monocytes % (Manual) 6 (0-10) % Eosinophils % (Manual) 1 (0-4) % Platelet Estimate Normal (NORMAL) Polychromasia Slight Hypochromasia (manual) Slight Poikilocytosis (manual Slight Anisocytosis (manual) Slight Microcytosis (manual) Slight Macrocytosis (manual) Slight Ovalocytes Slight PT (9.7-12.2) SECONDS INR APTT 93 H D (21-34) SECONDS Puncture Site pCO2 (35-45) mm/Hg pO2 (80-100) mm/Hg HCO3 (21-28) mmol/L ABG pH (7.35-7.45) ABG Total CO2 (22-28) mmol/L ABG O2 Saturation (95-98) % ABG Base Excess (-2.0-3.0) mmol/L ABG Hemoglobin (11.7-17.4) g/dL ABG Carboxyhemoglobin (0.5-1.5) % POC ABG HHb (Measured) (0.0-5.0) % ABG Methemoglobin (0.0-3.0) % Luis Carlos Test A-a O2 Difference mm/Hg Respiratory Index Hgb O2 Saturation (95.0-98.0) % Liter Flow FiO2 % Sodium 132 (132-148) mmol/L Potassium 3.8 (3.6-5.2) mmol/L Chloride 97 L (98-107) mmol/L Carbon Dioxide 28 (22-30) mmol/L Anion Gap 11 (10-20) BUN 29 H (9-20) mg/dL Creatinine 1.6 H (0.8-1.5) mg/dL Est GFR ( Amer) 53 Est GFR (Non-Af Amer) 44 POC Glucose (mg/dL) (65-110) mg/dL Random Glucose 255 H (75-110) mg/dL Calcium 8.2 L (8.6-10.4) mg/dl Phosphorus 4.3 (2.5-4.5) mg/dL Magnesium 2.0 (1.6-2.3) mg/dL Total Bilirubin 1.0 (0.2-1.3) mg/dL AST 19 (17-59) U/L ALT 27 (21-72) U/L Alkaline Phosphatase 78 (38-126) U/L Total Creatine Kinase (55-170) U/L CK-MB (Mass) (0.0-3.38) ng/mL Troponin I, Quant (0.00-0.120) ng/mL Total Protein 7.2 (6.3-8.3) g/dL Albumin 3.0 L (3.5-5.0) g/dL Globulin 4.2 H (2.2-3.9) gm/dL Albumin/Globulin Ratio 0.7 L (1.0-2.1) Urine Osmolality (300-1000) mosm/kg Ur Random Sodium mmol/L Ur Random Potassium mmol/L Complement C3 (88.0-165.0) mg/dL Complement C4 (14.0-44.0) mg/dL Hep Bs Antigen Negative (NEGATIVE) 07/04/17 07/04/17 07/04/17 Range/Units 22:37 21:38 20:28 WBC (4.8-10.8) K/uL RBC (4.40-5.90) Mil/uL Hgb (12.0-18.0) g/dL Hct (35.0-51.0) % MCV (80.0-94.0) fL MCH (27.0-31.0) pg MCHC (33.0-37.0) g/dL RDW (11.5-14.5) % Plt Count (130-400) K/uL MPV (7.2-11.7) fL Neut % (Auto) (50.0-75.0) % Lymph % (Auto) (20.0-40.0) % [place] % (Auto) (0.0-10.0) % Eos % (Auto) (0.0-4.0) % Baso % (Auto) (0.0-2.0) % Neut # (1.8-7.0) K/uL Lymph # (1.0-4.3) K/uL [place] # (0.0-0.8) K/uL Eos # (0.0-0.7) K/uL Baso # (0.0-0.2) K/uL Neutrophils % (Manual) (50-75) % Band Neutrophils % (0-2) % Lymphocytes % (Manual) (20-40) % Monocytes % (Manual) (0-10) % Eosinophils % (Manual) (0-4) % Platelet Estimate (NORMAL) Polychromasia Hypochromasia (manual) Poikilocytosis (manual Anisocytosis (manual) Microcytosis (manual) Macrocytosis (manual) Ovalocytes PT (9.7-12.2) SECONDS INR APTT 86 H D (21-34) SECONDS Puncture Site pCO2 (35-45) mm/Hg pO2 (80-100) mm/Hg HCO3 (21-28) mmol/L ABG pH (7.35-7.45) ABG Total CO2 (22-28) mmol/L ABG O2 Saturation (95-98) % ABG Base Excess (-2.0-3.0) mmol/L ABG Hemoglobin (11.7-17.4) g/dL ABG Carboxyhemoglobin (0.5-1.5) % POC ABG HHb (Measured) (0.0-5.0) % ABG Methemoglobin (0.0-3.0) % Luis Carlos Test A-a O2 Difference mm/Hg Respiratory Index Hgb O2 Saturation (95.0-98.0) % Liter Flow FiO2 % Sodium (132-148) mmol/L Potassium (3.6-5.2) mmol/L Chloride (98-107) mmol/L Carbon Dioxide (22-30) mmol/L Anion Gap (10-20) BUN (9-20) mg/dL Creatinine (0.8-1.5) mg/dL Est GFR ( Amer) Est GFR (Non-Af Amer) POC Glucose (mg/dL) 194 H (65-110) mg/dL Random Glucose (75-110) mg/dL Calcium (8.6-10.4) mg/dl Phosphorus (2.5-4.5) mg/dL Magnesium (1.6-2.3) mg/dL Total Bilirubin (0.2-1.3) mg/dL AST (17-59) U/L ALT (21-72) U/L Alkaline Phosphatase (38-126) U/L Total Creatine Kinase 77 (55-170) U/L CK-MB (Mass) 1.76 (0.0-3.38) ng/mL Troponin I, Quant 0.2310 H* (0.00-0.120) ng/mL Total Protein (6.3-8.3) g/dL Albumin (3.5-5.0) g/dL Globulin (2.2-3.9) gm/dL Albumin/Globulin Ratio (1.0-2.1) Urine Osmolality (300-1000) mosm/kg Ur Random Sodium mmol/L Ur Random Potassium mmol/L Complement C3 (88.0-165.0) mg/dL Complement C4 (14.0-44.0) mg/dL Hep Bs Antigen (NEGATIVE) 07/04/17 07/04/17 07/04/17 Range/Units 20:28 16:32 12:46 WBC 12.1 H (4.8-10.8) K/uL RBC 3.90 L (4.40-5.90) Mil/uL Hgb 10.6 L (12.0-18.0) g/dL Hct 34.0 L (35.0-51.0) % MCV 87.3 (80.0-94.0) fL MCH 27.3 (27.0-31.0) pg MCHC 31.3 L (33.0-37.0) g/dL RDW 19.1 H (11.5-14.5) % Plt Count 191 (130-400) K/uL MPV 8.5 (7.2-11.7) fL Neut % (Auto) (50.0-75.0) % Lymph % (Auto) (20.0-40.0) % [place] % (Auto) (0.0-10.0) % Eos % (Auto) (0.0-4.0) % Baso % (Auto) (0.0-2.0) % Neut # (1.8-7.0) K/uL Lymph # (1.0-4.3) K/uL [place] # (0.0-0.8) K/uL Eos # (0.0-0.7) K/uL Baso # (0.0-0.2) K/uL Neutrophils % (Manual) (50-75) % Band Neutrophils % (0-2) % Lymphocytes % (Manual) (20-40) % Monocytes % (Manual) (0-10) % Eosinophils % (Manual) (0-4) % Platelet Estimate (NORMAL) Polychromasia Hypochromasia (manual) Poikilocytosis (manual Anisocytosis (manual) Microcytosis (manual) Macrocytosis (manual) Ovalocytes PT 12.0 (9.7-12.2) SECONDS INR 1.1 APTT 31 (21-34) SECONDS Puncture Site pCO2 (35-45) mm/Hg pO2 (80-100) mm/Hg HCO3 (21-28) mmol/L ABG pH (7.35-7.45) ABG Total CO2 (22-28) mmol/L ABG O2 Saturation (95-98) % ABG Base Excess (-2.0-3.0) mmol/L ABG Hemoglobin (11.7-17.4) g/dL ABG Carboxyhemoglobin (0.5-1.5) % POC ABG HHb (Measured) (0.0-5.0) % ABG Methemoglobin (0.0-3.0) % Luis Carlos Test A-a O2 Difference mm/Hg Respiratory Index Hgb O2 Saturation (95.0-98.0) % Liter Flow FiO2 % Sodium (132-148) mmol/L Potassium (3.6-5.2) mmol/L Chloride (98-107) mmol/L Carbon Dioxide (22-30) mmol/L Anion Gap (10-20) BUN (9-20) mg/dL Creatinine (0.8-1.5) mg/dL Est GFR ( Amer) Est GFR (Non-Af Amer) POC Glucose (mg/dL) 217 H (65-110) mg/dL Random Glucose (75-110) mg/dL Calcium (8.6-10.4) mg/dl Phosphorus (2.5-4.5) mg/dL Magnesium (1.6-2.3) mg/dL Total Bilirubin (0.2-1.3) mg/dL AST (17-59) U/L ALT (21-72) U/L Alkaline Phosphatase (38-126) U/L Total Creatine Kinase (55-170) U/L CK-MB (Mass) (0.0-3.38) ng/mL Troponin I, Quant (0.00-0.120) ng/mL Total Protein (6.3-8.3) g/dL Albumin (3.5-5.0) g/dL Globulin (2.2-3.9) gm/dL Albumin/Globulin Ratio (1.0-2.1) Urine Osmolality (300-1000) mosm/kg Ur Random Sodium mmol/L Ur Random Potassium mmol/L Complement C3 (88.0-165.0) mg/dL Complement C4 (14.0-44.0) mg/dL Hep Bs Antigen (NEGATIVE) 07/04/17 Range/Units 12:21 WBC (4.8-10.8) K/uL RBC (4.40-5.90) Mil/uL Hgb (12.0-18.0) g/dL Hct (35.0-51.0) % MCV (80.0-94.0) fL MCH (27.0-31.0) pg MCHC (33.0-37.0) g/dL RDW (11.5-14.5) % Plt Count (130-400) K/uL MPV (7.2-11.7) fL Neut % (Auto) (50.0-75.0) % Lymph % (Auto) (20.0-40.0) % [place] % (Auto) (0.0-10.0) % Eos % (Auto) (0.0-4.0) % Baso % (Auto) (0.0-2.0) % Neut # (1.8-7.0) K/uL Lymph # (1.0-4.3) K/uL [place] # (0.0-0.8) K/uL Eos # (0.0-0.7) K/uL Baso # (0.0-0.2) K/uL Neutrophils % (Manual) (50-75) % Band Neutrophils % (0-2) % Lymphocytes % (Manual) (20-40) % Monocytes % (Manual) (0-10) % Eosinophils % (Manual) (0-4) % Platelet Estimate (NORMAL) Polychromasia Hypochromasia (manual) Poikilocytosis (manual Anisocytosis (manual) Microcytosis (manual) Macrocytosis (manual) Ovalocytes PT (9.7-12.2) SECONDS INR APTT (21-34) SECONDS Puncture Site pCO2 (35-45) mm/Hg pO2 (80-100) mm/Hg HCO3 (21-28) mmol/L ABG pH (7.35-7.45) ABG Total CO2 (22-28) mmol/L ABG O2 Saturation (95-98) % ABG Base Excess (-2.0-3.0) mmol/L ABG Hemoglobin (11.7-17.4) g/dL ABG Carboxyhemoglobin (0.5-1.5) % POC ABG HHb (Measured) (0.0-5.0) % ABG Methemoglobin (0.0-3.0) % Luis Carlos Test A-a O2 Difference mm/Hg Respiratory Index Hgb O2 Saturation (95.0-98.0) % Liter Flow FiO2 % Sodium (132-148) mmol/L Potassium (3.6-5.2) mmol/L Chloride (98-107) mmol/L Carbon Dioxide (22-30) mmol/L Anion Gap (10-20) BUN (9-20) mg/dL Creatinine (0.8-1.5) mg/dL Est GFR ( Amer) Est GFR (Non-Af Amer) POC Glucose (mg/dL) (65-110) mg/dL Random Glucose (75-110) mg/dL Calcium (8.6-10.4) mg/dl Phosphorus (2.5-4.5) mg/dL Magnesium (1.6-2.3) mg/dL Total Bilirubin (0.2-1.3) mg/dL AST (17-59) U/L ALT (21-72) U/L Alkaline Phosphatase (38-126) U/L Total Creatine Kinase (55-170) U/L CK-MB (Mass) (0.0-3.38) ng/mL Troponin I, Quant (0.00-0.120) ng/mL Total Protein (6.3-8.3) g/dL Albumin (3.5-5.0) g/dL Globulin (2.2-3.9) gm/dL Albumin/Globulin Ratio (1.0-2.1) Urine Osmolality 322 (300-1000) mosm/kg Ur Random Sodium 32 mmol/L Ur Random Potassium 26.6 mmol/L Complement C3 (88.0-165.0) mg/dL Complement C4 (14.0-44.0) mg/dL Hep Bs Antigen (NEGATIVE) Laboratory Results - last 24 hr 07/04/17 07/04/17 07/04/17 12:21 12:46 16:32 WBC RBC Hgb Hct MCV MCH MCHC RDW Plt Count MPV Neut % (Auto) Lymph % (Auto) [place] % (Auto) Eos % (Auto) Baso % (Auto) Neut # Lymph # [place] # Eos # Baso # Neutrophils % (Manual) Band Neutrophils % Lymphocytes % (Manual) Monocytes % (Manual) Eosinophils % (Manual) Platelet Estimate Polychromasia Hypochromasia (manual) Poikilocytosis (manual Anisocytosis (manual) Microcytosis (manual) Macrocytosis (manual) Ovalocytes PT 12.0 INR 1.1 APTT 31 Puncture Site pCO2 pO2 HCO3 ABG pH ABG Total CO2 ABG O2 Saturation ABG Base Excess ABG Hemoglobin ABG Carboxyhemoglobin POC ABG HHb (Measured) ABG Methemoglobin Luis Carlos Test A-a O2 Difference Respiratory Index Hgb O2 Saturation Liter Flow FiO2 Sodium Potassium Chloride Carbon Dioxide Anion Gap BUN Creatinine Est GFR ( Amer) Est GFR (Non-Af Amer) POC Glucose (mg/dL) 217 H Random Glucose Calcium Phosphorus Magnesium Total Bilirubin AST ALT Alkaline Phosphatase Total Creatine Kinase CK-MB (Mass) Troponin I, Quant Total Protein Albumin Globulin Albumin/Globulin Ratio Urine Osmolality 322 Ur Random Sodium 32 Ur Random Potassium 26.6 Complement C3 Complement C4 Hep Bs Antigen 07/04/17 07/04/17 07/04/17 20:28 20:28 21:38 WBC 12.1 H RBC 3.90 L Hgb 10.6 L Hct 34.0 L MCV 87.3 MCH 27.3 MCHC 31.3 L RDW 19.1 H Plt Count 191 MPV 8.5 Neut % (Auto) Lymph % (Auto) [place] % (Auto) Eos % (Auto) Baso % (Auto) Neut # Lymph # [place] # Eos # Baso # Neutrophils % (Manual) Band Neutrophils % Lymphocytes % (Manual) Monocytes % (Manual) Eosinophils % (Manual) Platelet Estimate Polychromasia Hypochromasia (manual) Poikilocytosis (manual Anisocytosis (manual) Microcytosis (manual) Macrocytosis (manual) Ovalocytes PT INR APTT 86 H D Puncture Site pCO2 pO2 HCO3 ABG pH ABG Total CO2 ABG O2 Saturation ABG Base Excess ABG Hemoglobin ABG Carboxyhemoglobin POC ABG HHb (Measured) ABG Methemoglobin Luis Carlos Test A-a O2 Difference Respiratory Index Hgb O2 Saturation Liter Flow FiO2 Sodium Potassium Chloride Carbon Dioxide Anion Gap BUN Creatinine Est GFR ( Amer) Est GFR (Non-Af Amer) POC Glucose (mg/dL) 194 H Random Glucose Calcium Phosphorus Magnesium Total Bilirubin AST ALT Alkaline Phosphatase Total Creatine Kinase CK-MB (Mass) Troponin I, Quant Total Protein Albumin Globulin Albumin/Globulin Ratio Urine Osmolality Ur Random Sodium Ur Random Potassium Complement C3 Complement C4 Hep Bs Antigen 07/04/17 07/05/17 07/05/17 22:37 03:24 06:33 WBC RBC Hgb Hct MCV MCH MCHC RDW Plt Count MPV Neut % (Auto) Lymph % (Auto) [place] % (Auto) Eos % (Auto) Baso % (Auto) Neut # Lymph # [place] # Eos # Baso # Neutrophils % (Manual) Band Neutrophils % Lymphocytes % (Manual) Monocytes % (Manual) Eosinophils % (Manual) Platelet Estimate Polychromasia Hypochromasia (manual) Poikilocytosis (manual Anisocytosis (manual) Microcytosis (manual) Macrocytosis (manual) Ovalocytes PT INR APTT 93 H D Puncture Site pCO2 pO2 HCO3 ABG pH ABG Total CO2 ABG O2 Saturation ABG Base Excess ABG Hemoglobin ABG Carboxyhemoglobin POC ABG HHb (Measured) ABG Methemoglobin Luis Carlos Test A-a O2 Difference Respiratory Index Hgb O2 Saturation Liter Flow FiO2 Sodium 132 Potassium 3.8 Chloride 97 L Carbon Dioxide 28 Anion Gap 11 BUN 29 H Creatinine 1.6 H Est GFR ( Amer) 53 Est GFR (Non-Af Amer) 44 POC Glucose (mg/dL) Random Glucose 255 H Calcium 8.2 L Phosphorus 4.3 Magnesium 2.0 Total Bilirubin 1.0 AST 19 ALT 27 Alkaline Phosphatase 78 Total Creatine Kinase 77 CK-MB (Mass) 1.76 Troponin I, Quant 0.2310 H* Total Protein 7.2 Albumin 3.0 L Globulin 4.2 H Albumin/Globulin Ratio 0.7 L Urine Osmolality Ur Random Sodium Ur Random Potassium Complement C3 Complement C4 Hep Bs Antigen Negative 07/05/17 07/05/17 07/05/17 06:33 06:33 07:18 WBC 10.1 RBC 3.88 L Hgb 10.6 L Hct 33.6 L MCV 86.7 MCH 27.2 MCHC 31.4 L RDW 18.8 H Plt Count 236 MPV 8.9 Neut % (Auto) 82.1 H Lymph % (Auto) 9.2 L [place] % (Auto) 6.4 Eos % (Auto) 1.9 Baso % (Auto) 0.4 Neut # 8.3 H Lymph # 0.9 L [place] # 0.6 Eos # 0.2 Baso # 0.0 Neutrophils % (Manual) 81 H Band Neutrophils % 1 Lymphocytes % (Manual) 11 L Monocytes % (Manual) 6 Eosinophils % (Manual) 1 Platelet Estimate Normal Polychromasia Slight Hypochromasia (manual) Slight Poikilocytosis (manual Slight Anisocytosis (manual) Slight Microcytosis (manual) Slight Macrocytosis (manual) Slight Ovalocytes Slight PT INR APTT Puncture Site pCO2 pO2 HCO3 ABG pH ABG Total CO2 ABG O2 Saturation ABG Base Excess ABG Hemoglobin ABG Carboxyhemoglobin POC ABG HHb (Measured) ABG Methemoglobin [place] Test A-a O2 Difference Respiratory Index Hgb O2 Saturation Liter Flow FiO2 Sodium Potassium Chloride Carbon Dioxide Anion Gap BUN Creatinine Est GFR ( Amer) Est GFR (Non-Af Amer) POC Glucose (mg/dL) 188 H Random Glucose Calcium Phosphorus Magnesium Total Bilirubin AST ALT Alkaline Phosphatase Total Creatine Kinase CK-MB (Mass) Troponin I, Quant Total Protein Albumin Globulin Albumin/Globulin Ratio Urine Osmolality Ur Random Sodium Ur Random Potassium Complement C3 129.0 Complement C4 22.8 Hep Bs Antigen 07/05/17 11:26 WBC RBC Hgb Hct MCV MCH MCHC RDW Plt Count MPV Neut % (Auto) Lymph % (Auto) [place] % (Auto) Eos % (Auto) Baso % (Auto) Neut # Lymph # [place] # Eos # Baso # Neutrophils % (Manual) Band Neutrophils % Lymphocytes % (Manual) Monocytes % (Manual) Eosinophils % (Manual) Platelet Estimate Polychromasia Hypochromasia (manual) Poikilocytosis (manual Anisocytosis (manual) Microcytosis (manual) Macrocytosis (manual) Ovalocytes PT INR APTT Puncture Site Rr pCO2 54 H pO2 124 H HCO3 28.6 H ABG pH 7.37 ABG Total CO2 32.9 H ABG O2 Saturation 98.8 H ABG Base Excess 4.8 H ABG Hemoglobin 11.1 L ABG Carboxyhemoglobin 2.9 H POC ABG HHb (Measured) 1.2 ABG Methemoglobin 0.8 [place] Test Pos A-a O2 Difference 44.0 Respiratory Index 0.4 Hgb O2 Saturation 95.1 Liter Flow 4.0 FiO2 33.0 Sodium Potassium Chloride Carbon Dioxide Anion Gap BUN Creatinine Est GFR ( Amer) Est GFR (Non-Af Amer) POC Glucose (mg/dL) Random Glucose Calcium Phosphorus Magnesium Total Bilirubin AST ALT Alkaline Phosphatase Total Creatine Kinase CK-MB (Mass) Troponin I, Quant Total Protein Albumin Globulin Albumin/Globulin Ratio Urine Osmolality Ur Random Sodium Ur Random Potassium Complement C3 Complement C4 Hep Bs Antigen Fingerstick Blood Sugar Results: 188 Critical Care Progress Note - Nutrition Nutrition: Nutrition Category Date Time Status Heart Healthy Diet [DIET] Diets 07/04/17 Breakfast Active Assessment/Plan (1) Hypercapnic respiratory failure, chronic Assessment and plan: Continue to monitor the ABG BiPAP as needed and at night Sleep study as outpatient Continue Lasix for CHF Cardiology evaluation Renal insufficiency noted Insulin sliding scale Reduce dextrose fluid to 30 mL an hour Swallowing evaluation Case discussed with family at length Current Visit: Yes Status: Acute Comment: Hypercapnic respiratory failure secondary to CHF and obstructive sleep apnea Continue Lasix and BiPAP Started on heparin drip by cardiology for elevated troponins Discontinue IV fluid Follow-up ABG and chest x-ray (2) Elevated troponin Current Visit: Yes Status: Acute (3) Pulmonary edema Current Visit: Yes Status: Acute (4) Hypoglycemia Current Visit: Yes Status: Acute
--- NOTE | 2017-07-05 12:31 | US ---
PROCEDURE: Ultrasound of the Kidneys HISTORY: ckd, proteinuria, for kidney size, r/o hydro COMPARISON: None available. TECHNIQUE: Sonogram of the kidneys. FINDINGS: RIGHT KIDNEY: Measures: 9.5 x 5.5 x 5.7 cm. The right kidney is echogenic. No stone, solid mass lesion or hydronephrosis visualized. There are at least 2 large cystic lesions at the right kidney with the largest cyst seen at the upper pole measures 1.6 x 1.2 x 1.4 centimeter. LEFT KIDNEY: Measures: 9.5 x 5.8 x 4.7 cm. The left kidney is also echogenic. No stone, solid mass lesion or hydronephrosis visualized. There is a cyst exophytic from the lower pole of the left kidney measures approximately 2 centimeter in the largest diameter. OTHER FINDINGS: None. IMPRESSION: Echogenic kidneys suggestive of chronic kidney disease. No evidence of hydro nephrosis. An anechoic simple cysts seen in both kidneys
[2017-07-05] MEDS ORDERED: Labetalol 25mg/5ml Syringe ONE (13:30)
[2017-07-05] MEDS ORDERED: Labetalol 25mg/5ml Syringe IV ONE (13:30)
[2017-07-05 14:20] LABS: ABG ALLEN TEST POS; ARTERIAL BLOOD GAS MODE BiPAP; ARTERIAL BLOOD HGB O2 SAT 92.2 % (95.0-98.0); CARBOXYHEMOGLOBIN 3.2 % (0.5-1.5); DRAW SITE RR; HHB 3.6 % (0.0-5.0); METHEMOGLOBIN 1.1 % (0.0-3.0)
[2017-07-05] MEDS: Propofol 10 mg/ml 1,000 MG/100 ML VIAL IV PRN ×2 (15:05→22:00)
[2017-07-05] MEDS ORDERED: Etomidate 20 mg/10ml Inj IV ONE (15:12)
[2017-07-05] MEDS ORDERED: Propofol 10 mg/ml Inj (20 ML) IV ONE (15:18)
--- NOTE | 2017-07-05 15:24 | PCM.PROC ---
Procedures Attestation:: I certify that I have explained the specified Operation(s) or Procedure(s), risks, benefits and reasonable alternatives to the Patient and/or other person responsible. The opportunity was given to ask questions and all questions answered - Intubation Time Out Performed: Yes Sedative: Etomidate, Other (propofol) Mg Given: 20 Laryngoscope: Grecia ET Tube Size: 8.0 ET Tube Secured at Depth: 23 ET Tube Secured [place]: Lips ET Tube Placement Confirmation: Visualized Passing Through Cords, Breath Sounds Equal Bilaterally, No Breath Sounds Over Epigastrum, Confirmation w/Capnometry Patient Tolerated Procedure: Well Procedure Immediate Complications: None
[2017-07-05] MEDS: Acetaminophen 650mg/20.3ml solution UD PO PRN (16:28)
[2017-07-05 16:43] LABS: ABG MECHANICAL RATE 14; ARTERIAL BLOOD GAS MODE PRVC; ARTERIAL BLOOD HGB O2 SAT 96.2 % (95.0-98.0); ATERIAL BLOOD GAS PEEP 5; CARBOXYHEMOGLOBIN 2.5 % (0.5-1.5); DRAW SITE RRA; HHB 0.1 % (0.0-5.0); METHEMOGLOBIN 1.1 % (0.0-3.0)
[2017-07-05] MEDS ORDERED: Vancomycin 1 gm/NS 200 ml 1 GM/200 ML BAG IVPB STA (17:14)
--- NOTE | 2017-07-05 17:26 | RAD ---
HISTORY: s/p intubation COMPARISON: Comparison is made to 07/04/2017 FINDINGS: LUNGS: The patient is status post intubation. The ET tube is seen at appropriate position with the tip at the level of the clavicles. No significant interval change in the lungs noted since the previous exam. PLEURA: Blunting of the right costophrenic angle is noted. CARDIOVASCULAR: Cardiomegaly is again seen. OSSEOUS STRUCTURES: Deformity in the right chest wall is again noted. VISUALIZED UPPER ABDOMEN: Normal. OTHER FINDINGS: None. IMPRESSION: Status post intubation. Otherwise no significant interval change.
[2017-07-05] MEDS: Nitroglycerin 50mg in D5W 50 MG/250 ML BOTTLE IV SCH (17:31)
[2017-07-05] MEDS: Piperacill/Tazo 2.25gm in Dex 2.25 GM/50 ML BAG IVPB SCH ×2 (17:53→22:42)
--- NOTE | 2017-07-05 18:24 | CARD ---
APPROVED REPORT EKG Measurement Heart [id number] [id number] <Conclusion> Sinus rhythm with occasional premature ventricular complexes Right bundle branch block Left anterior fascicular block Bifascicular block Moderate voltage criteria for LVH, may be normal variant Cannot rule out Inferior infarct (masked by fascicular block?), age undetermined Abnormal ECG
[2017-07-05] MEDS ORDERED: Sodium Chloride 0.9% 500 ML IV ONE (18:56)
[2017-07-05 19:11] LABS: RBC URINE 621 /hpf (0-3); URINE BACTERIA MOD (<OCC); URINE BILIRUBIN NEGATIVE (NEGATIVE); URINE BLOOD 3+ (NEGATIVE); URINE COLOR Yellow (YELLOW); URINE GLUCOSE (UA) 1+ mg/dL (Normal); URINE KETONE NEGATIVE (NEGATIVE); URINE LEUKOCYTE ESTERASE TRACE Leu/uL (Negative); URINE PROTEIN 2+ mg/dL (NEGATIVE); URINE UROBILINOGEN NORMAL mg/dL (0.2-1.0); WBC URINE 9 /hpf (0-5)
--- NOTE | 2017-07-05 20:08 | CP.PCM.PN ---
Subjective - Date & Time of Evaluation Date of Evaluation: 07/05/17 Time of Evaluation: 12:05 - Subjective Subjective: Patient seen and evaluated On BiPAP due to hypoxemia Slightly lethargic Physical examination - Constitutional Appears: Well, No Acute Distress (alert awake oriented x 3) - Head Exam Head Exam: ATRAUMATIC, NORMOCEPHALIC - Eye Exam Eye Exam: Normal appearance - ENT Exam ENT Exam: Mucous Membranes Moist - Respiratory Exam Respiratory Exam: Clear to Ausculation Bilateral, NORMAL BREATHING PATTERN - GI/Abdominal Exam GI & Abdominal Exam: Soft, Normal Bowel Sounds. absent: Tenderness - Extremities Exam Extremities Exam: Full ROM, Normal Capillary Refill, Normal Inspection, Pedal Edema (improved) - Back Exam Back Exam: absent: tenderness - Neurological Exam Neurological Exam: Alert, Awake, Oriented x3 - Psychiatric Exam Psychiatric exam: Normal Affect, Normal Mood - Skin Skin Exam: Intact, Normal Color Objective - Vital Signs/Intake and Output Vital Signs (last 24 hours): Temp Pulse Resp BP Pulse Ox 99.4 F 82 15 103/53 L 100 07/05/17 17:28 07/05/17 19:16 07/05/17 19:16 07/05/17 19:17 07/05/17 19:16 Intake and Output: 07/05/17 07/06/17 18:59 06:59 Intake Total 991.2 211.2 Output Total 1580 30 Balance -588.8 181.2 - Medications Medications: Current Medications Acetaminophen (Tylenol 650mg/20.3ml Solution Ud) 650 mg PO Q6 PRN PRN Reason: Fever 100.6 and above Last Admin: 07/05/17 16:28 Dose: 650 mg Allopurinol (Zyloprim) 100 mg PO DAILY [facility] Last Admin: 07/05/17 09:08 Dose: 100 mg Aspirin (Ecotrin) 81 mg PO DAILY [facility] Last Admin: 07/05/17 09:08 Dose: 81 mg Clopidogrel Bisulfate (Plavix) 75 mg PO DAILY [facility] Last Admin: 07/05/17 17:53 Dose: 75 mg Famotidine (Pepcid) 20 mg IVP DAILY [facility] Last Admin: 07/05/17 09:07 Dose: 20 mg Furosemide (Lasix) 40 mg IVP Q12 [facility] Last Admin: 07/05/17 09:12 Dose: 40 mg Heparin Sodium (Porcine) (Heparin) 5,000 units SC Q12 [facility] Hydralazine HCl (Apresoline) 10 mg IVP Q6H [facility] Last Admin: 07/05/17 17:30 Dose: Not Given Nitroglycerin/Dextrose (Nitroglycerin 50 Mg/250 Ml D5w) 50 mg in 250 mls @ 9 mls/hr IV .Q24H [facility]; 30 MCG/MIN PRN Reason: Protocol Last Admin: 07/05/17 17:31 Dose: Not Given Propofol (Diprivan) 1,000 mg in 100 mls @ 2.787 mls/hr IV .Q24H PRN; Protocol; 5 MCG/KG/MIN PRN Reason: TITRATE PER MD ORDER Last Titration: 07/05/17 16:01 Dose: 20 mcg/kg/min, 11.148 mls/hr Piperacillin Sod/Tazobactam Sod (Zosyn 2.25 Gm Iv Premix) 2.25 gm in 50 mls @ 100 mls/hr IVPB Q6H [facility] Last Admin: 07/05/17 17:53 Dose: 100 mls/hr Insulin Human Regular (Novolin R) 0 unit SC Q6H [facility] PRN Reason: Protocol Last Admin: 07/05/17 17:54 Dose: Not Given Losartan Potassium (Cozaar) 50 mg PO BID [facility] Last Admin: 07/05/17 18:26 Dose: Not Given Metoprolol Tartrate (Lopressor) 25 mg PO BID [facility] Last Admin: 07/05/17 18:26 Dose: Not Given Rosuvastatin Calcium (Crestor) 10 mg PO HS [facility] Last Admin: 07/04/17 22:09 Dose: 10 mg - Labs Labs: 07/05/17 06:33 07/05/17 19:01 PT 12.0 SECONDS (9.7-12.2) 07/04/17 12:46 INR 1.1 07/04/17 12:46 APTT 93 SECONDS (21-34) H D 07/05/17 03:24 Assessment and Plan - Assessment and Plan (Free Text) Assessment: (1) CHF exacerbation Assessment and Plan: On IV Lasix and BiPAP now Status: Acute (2) Hypertension Assessment and Plan: On Metoprolol and Hydralazine Elevated overnight. Cont to monitor. Avoid IVF Status: Chronic (3) History of coronary artery bypass graft Assessment and Plan: Started Crestor 10 mg PO HS On Metoprolol BID Status: Chronic (4) History of diabetes mellitus Assessment and Plan: Accuchecks Sliding scale Hold Parameters in place A1c 6.8 Status: Chronic (6) History of TIA (transient ischemic attack) Assessment and Plan: Head CT- Refer to report Neuro on the case Cont to monitor Status: Acute (7) Hypercholesteremia Assessment and Plan: On Crestor Would benefit from diet and exercise Status: Chronic (8) Family history of cerebral aneurysm Assessment and Plan: Strong family history. Patient's counseled on the importance of testing children to rule out aneursyms. Head CT did not appear to show signs of aneurysmal disease. Neuro on case for AMS Status: Acute (9) Prophylactic measure Assessment and Plan: SCDs contraindicated due to swelling Heparin SC Q12 Pepcid 20 mg IV daily Status: Acute
--- NOTE | 2017-07-05 21:40 | CARD ---
APPROVED REPORT EXAM: Two-dimensional and M-mode echocardiogram with Doppler and color Doppler. Other Information Quality : GoodRhythm : NSR INDICATION Congestive Heart Failure PT ON VENT RISK FACTORS Hypertension Hyperlipidemia M-Mode DIMENSIONS RVDd1.81 (2.1-3.2cm)Left Atrium (MM)3.64 (2.5-4.0cm) IVSd1.69 (0.7-1.1cm)Aortic Root4.30 (2.2-3.7cm) LVDd5.36 (4.0-5.6cm)Aortic Cusp Exc.2.17 (1.5-2.0cm) PWd1.52 (0.7-1.1cm)FS (%) 39 % LVDs3.26 (2.0-3.8cm)LVEF (%)69 (>50%) Aortic Valve AI P 1/2 [id number] Mitral Valve MV E Cxhrolqm04.4cm/sMV A Ejdahwms46.4cm/sE/A ratio1.1 TDI E/Lateral E'0.0E/Medial E'0.0 Tricuspid Valve TR Peak Buofscuz126da/sTR Peak Gr.[id number] <Conclusion> Suboptimal study Left ventricle: thickness:mild concentric; size: normal; overall ejection fraction: 65%: diastolic filling pressures: normal Mitral valve: annulus: normal: leaflets: normal: excursion: normal; no significant trans-mitral gradient: no significant incompetence: left atrium: normal Aortic valve: leaflets:mild calcified thickening: excursion: normal; no significant trans-aortic gradient: mild incompetence: aortic root: normal Right sided Structures: Pulmonary valve: normal; no significant incompetence; Tricuspid valve: normal;moderate incompetence: Intra-cardiac hemodynamics: pulmonary systolic pressures: 60mmHg; central venous pressures: normal No pericardial effusion
[2017-07-06] MEDS: (Novolin R) Insulin Human Regular 100 units/ml vial SC SCH ×4 (00:58→18:17)
[2017-07-06] MEDS: Piperacill/Tazo 2.25gm in Dex 2.25 GM/50 ML BAG IVPB SCH ×4 (05:26→22:56)
[2017-07-06 05:44] LABS: ABG ALLEN TEST POS; ABG MECHANICAL RATE 16; ARTERIAL BLOOD GAS MODE PRVC; ATERIAL BLOOD GAS PEEP 5; CARBOXYHEMOGLOBIN 2.2 % (0.5-1.5); DRAW SITE R RAD; HHB 0.6 % (0.0-5.0); METHEMOGLOBIN 1.2 % (0.0-3.0)
[2017-07-06 06:44] LABS: BASO % 0.3 % (0.0-2.0); EOS # 0.1 K/uL (0.0-0.7); EOS % 1.3 % (0.0-4.0); HEMATOCRIT 29.4 % (35.0-51.0); LYMPH % 11.4 % (20.0-40.0); MEAN CELL VOLUME 85.8 fL (80.0-94.0); MEAN CORPUSCULAR HGB CONC 32.7 g/dL (33.0-37.0); MEAN PLATELET VOLUME 8.6 fL (7.2-11.7); MONO # 0.6 K/uL (0.0-0.8); MONO % 6.5 % (0.0-10.0); RED CELL DISTRIBUTION WIDTH 18.5 % (11.5-14.5); WHITE BLOOD COUNT 8.8 K/uL (4.8-10.8)
[2017-07-06 06:45] LABS: INR 1.2
[2017-07-06] MEDS: Propofol 10 mg/ml 1,000 MG/100 ML VIAL IV PRN ×3 (06:55→23:47)
[2017-07-06 07:01] LABS: POTASSIUM 3.7 mmol/L (3.6-5.2)
[2017-07-06 07:03] LABS: ALB/GLOB RATIO 0.7 (1.0-2.1); BILIRUBIN,TOTAL 0.9 mg/dL (0.2-1.3); TOTAL PROTEIN 6.1 g/dL (6.3-8.3)
[2017-07-06 07:04] LABS: CALCIUM 8.1 mg/dl (8.6-10.4); PHOSPHOROUS 3.9 mg/dL (2.5-4.5)
[2017-07-06 07:16] LABS: TROPONIN I 0.256 ng/mL (0.00-0.120)
--- NOTE | 2017-07-06 08:49 | RAD ---
Chest x-ray single frontal view History: Intubated. Comparison: 07/05/2017 Findings: Lines and tubes in stable position. Moderate to severe venous congestion with prominent confluent bibasilar airspace opacities and small bilateral pleural effusions. Cardiomegaly. Status post median sternotomy and CABG. Nodular consolidative changes at the right lung base. Several right-sided rib deformities. Impression: Moderate to severe venous congestion with prominent confluent bibasilar airspace opacities and small bilateral pleural effusions. Cardiomegaly. Status post median sternotomy and CABG. Nodular consolidative changes at the right lung base. Several right-sided rib deformities.
[2017-07-06] MEDS ORDERED: Influenza Vaccine 60 mcg/0.5 mL SYR (4YR UP) IM ONE (10:00)
--- NOTE | 2017-07-06 10:03 | CP.PCM.PN ---
<Maurilio Lr - Last Filed: 07/06/17 15:17> Subjective - Date & Time of Evaluation Date of Evaluation: 07/06/17 Time of Evaluation: 09:45 - Subjective Subjective: Cardiology Progress Note- Dr. Butler's service Pt seen and examined in no acute distress. Patient is s/p intubation yesterday after witnessed increased respiratory distress. Patient spiked a fever yesterday which decreased. Patient was stable overnight with no additional new events per nursing. Patient's present bedside with concerns regarding cath that was to be performed today. She states that patient has a coiled vessel which prevented prior procedures from being performed in the past. An ROS could not be obtained due to patient's clinical status. Objective - Vital Signs/Intake and Output Vital Signs (last 24 hours): Temp Pulse Resp BP Pulse Ox 99.5 F 96 H 13 135/84 100 07/06/17 08:46 07/06/17 09:48 07/06/17 09:48 07/06/17 09:48 07/06/17 09:48 Intake and Output: 07/06/17 07/06/17 06:59 18:59 Intake Total 504.4 63.6 Output Total 400 80 Balance 104.4 -16.4 - Medications Medications: Current Medications Acetaminophen (Tylenol 650mg/20.3ml Solution Ud) 650 mg PO Q6 PRN PRN Reason: Fever 100.6 and above Last Admin: 07/05/17 16:28 Dose: 650 mg Allopurinol (Zyloprim) 100 mg PO DAILY [facility] Last Admin: 07/06/17 09:33 Dose: 100 mg Aspirin (Ecotrin) 81 mg PO DAILY [facility] Last Admin: 07/06/17 09:33 Dose: 81 mg Clopidogrel Bisulfate (Plavix) 75 mg PO DAILY [facility] Last Admin: 07/06/17 09:33 Dose: 75 mg Famotidine (Pepcid) 20 mg IVP DAILY [facility] Last Admin: 07/06/17 09:33 Dose: 20 mg Furosemide (Lasix) 40 mg IVP Q12 [facility] Last Admin: 07/05/17 22:41 Dose: 40 mg Heparin Sodium (Porcine) (Heparin) 5,000 units SC Q12 [facility] Last Admin: 07/06/17 09:33 Dose: 5,000 units Hydralazine HCl (Apresoline) 10 mg IVP Q6H [facility] Last Admin: 07/06/17 05:24 Dose: Not Given Nitroglycerin/Dextrose (Nitroglycerin 50 Mg/250 Ml D5w) 50 mg in 250 mls @ 9 mls/hr IV .Q24H [facility]; 30 MCG/MIN PRN Reason: Protocol Last Admin: 07/05/17 17:31 Dose: Not Given Propofol (Diprivan) 1,000 mg in 100 mls @ 2.787 mls/hr IV .Q24H PRN; Protocol; 5 MCG/KG/MIN PRN Reason: TITRATE PER MD ORDER Last Admin: 07/06/17 06:55 Dose: 20 mcg/kg/min, 11.148 mls/hr Piperacillin Sod/Tazobactam Sod (Zosyn 2.25 Gm Iv Premix) 2.25 gm in 50 mls @ 100 mls/hr IVPB Q6H [facility] Last Admin: 07/06/17 05:26 Dose: 100 mls/hr Insulin Human Regular (Novolin R) 0 unit SC Q6H [facility] PRN Reason: Protocol Last Admin: 07/06/17 05:24 Dose: Not Given Losartan Potassium (Cozaar) 50 mg PO BID [facility] Last Admin: 07/06/17 09:34 Dose: 50 mg Metoprolol Tartrate (Lopressor) 25 mg PO BID [facility] Last Admin: 07/06/17 09:33 Dose: 25 mg Rosuvastatin Calcium (Crestor) 10 mg PO HS [facility] Last Admin: 07/05/17 22:41 Dose: 10 mg - Labs Labs: 07/06/17 06:28 07/06/17 06:28 PT 13.6 SECONDS (9.7-12.2) H 07/06/17 06:28 INR 1.2 07/06/17 06:28 APTT 33 SECONDS (21-34) D 07/06/17 06:28 - Constitutional Appears: Non-toxic, No Acute Distress - Head Exam Head Exam: ATRAUMATIC, NORMAL INSPECTION, NORMOCEPHALIC - Eye Exam Additional comments: eyes were closed - ENT Exam ENT Exam: Mucous Membranes Moist - Neck Exam Neck Exam: Full ROM Additional comments: JVD - Respiratory Exam Respiratory Exam: NORMAL BREATHING PATTERN - Cardiovascular Exam Cardiovascular Exam: JVD, +S1, +S2 - GI/Abdominal Exam GI & Abdominal Exam: Soft, Normal Bowel Sounds - Extremities Exam Extremities Exam: Full ROM, Normal Capillary Refill. absent: Pedal Edema - Neurological Exam Neurological Exam: absent: Alert, Awake - Skin Skin Exam: Dry, Normal Color, Warm Assessment and Plan (1) CHF exacerbation Status: Acute (2) Hypertension Status: Chronic (3) History of coronary artery bypass graft Status: Chronic (4) Hypoglycemia Status: Acute (5) History of diabetes mellitus Status: Chronic (6) History of TIA (transient ischemic attack) Status: Acute (7) Hypercholesteremia Status: Chronic (8) Family history of cerebral aneurysm Status: Acute (9) Prophylactic measure Status: Acute - Assessment and Plan (Free Text) Assessment: Elevated Troponin Assessment and Plan: Mildly elevated but trending down: May be secondarily due to ischemic changes but may also be due to CHF exacerbation as well No ST segment changes appreciated on EKG 07/06 Cont to monitor Status: Acute CHF exacerbation Assessment and Plan: S/P intubation due to resp distress on 07/05 On IV Lasix 40 IV Q12 ECHO: EF 65%, mild calcified thickening of aortic valve. Refer to complete report Status: Acute Hypertension Assessment and Plan: On Metoprolol, Cozaar and Hydralazine Elevated overnight. Cont to monitor. Avoid IVF Status: Chronic History of coronary artery bypass graft Assessment and Plan: Crestor 10 mg PO HS On Metoprolol BID, ASA daily. Stop Plavix Would like Neuro clearance before before cardiac cath is performed. Status: Chronic History of diabetes mellitus Assessment and Plan: Accuchecks Sliding scale Hold Parameters in place A1c 6.8 Status: Chronic History of TIA (transient ischemic attack) Assessment and Plan: 07/[address]- Intracranial arterial calcifications; stable chronic infarcts noted. Refer to full report. Would benefit from MRI of brain. EEG reviewed by Neuro- Slow wave activity noted w/o paroxysmal activity or focal slowing Neuro on the case Cont to monitor Status: Acute Hypercholesterolemia Assessment and Plan: On Crestor Would benefit from diet and exercise modifications following current hospital course Status: Chronic Family history of cerebral aneurysm Assessment and Plan: Strong family history. Patient's counseled on the importance of imaging for children to rule out aneurysms. Head CT did not appear to show signs of aneurysmal disease. Neuro on case for AMS Status: Acute Prophylactic measure Assessment and Plan: SCDs contraindicated due to swelling Heparin SC Q12 Pepcid 20 mg IV daily Status: Acute Discussed with attending. Management and Planning per Dr. Butler. <Corey Butler - Last Filed: 07/06/17 21:22> Objective - Vital Signs/Intake and Output Vital Signs (last 24 hours): Temp Pulse Resp BP Pulse Ox 100 F H 73 16 125/69 100 07/06/17 20:00 07/06/17 20:49 07/06/17 20:49 07/06/17 20:49 07/06/17 20:49 Intake and Output: 07/06/17 07/07/17 18:59 06:59 Intake Total 394.4 112.4 Output Total 365 30 Balance 29.4 82.4 - Medications Medications: Current Medications Acetaminophen (Tylenol 650mg/20.3ml Solution Ud) 650 mg PO Q6 PRN PRN Reason: Fever 100.6 and above Last Admin: 07/06/17 11:58 Dose: 650 mg Aspirin (Ecotrin) 81 mg PO DAILY [facility] Last Admin: 07/06/17 09:33 Dose: 81 mg Famotidine (Pepcid) 20 mg IVP DAILY [facility] Last Admin: 07/06/17 09:33 Dose: 20 mg Furosemide (Lasix) 40 mg IVP Q12 [facility] Last Admin: 07/06/17 10:43 Dose: Not Given Heparin Sodium (Porcine) (Heparin) 5,000 units SC Q12 [facility] Last Admin: 07/06/17 09:33 Dose: 5,000 units Hydralazine HCl (Apresoline) 10 mg IVP Q6H [facility] Last Admin: 07/06/17 17:27 Dose: 10 mg Nitroglycerin/Dextrose (Nitroglycerin 50 Mg/250 Ml D5w) 50 mg in 250 mls @ 9 mls/hr IV .Q24H [facility]; 30 MCG/MIN PRN Reason: Protocol Last Admin: 07/06/17 15:23 Dose: Not Given Piperacillin Sod/Tazobactam Sod (Zosyn 2.25 Gm Iv Premix) 2.25 gm in 50 mls @ 100 mls/hr IVPB Q6H [facility] Last Admin: 07/06/17 17:28 Dose: 100 mls/hr Propofol (Diprivan) 1,000 mg in 100 mls @ 2.79 mls/hr IV .Q24H PRN; Protocol; 5 MCG/KG/MIN PRN Reason: TITRATE PER MD ORDER Last Admin: 07/06/17 16:39 Dose: 20 mcg/kg/min, 11.158 mls/hr Insulin Human Regular (Novolin R) 0 unit SC Q6H [facility] PRN Reason: Protocol Last Admin: 07/06/17 18:17 Dose: 1 unit Losartan Potassium (Cozaar) 50 mg PO BID [facility] Last Admin: 07/06/17 09:34 Dose: 50 mg Metoprolol Tartrate (Lopressor) 25 mg PO BID [facility] Last Admin: 07/06/17 17:27 Dose: 25 mg Rosuvastatin Calcium (Crestor) 10 mg PO HS [facility] Last Admin: 07/05/17 22:41 Dose: 10 mg - Labs Labs: 07/06/17 06:28 07/06/17 06:28 PT 13.6 SECONDS (9.7-12.2) H 07/06/17 06:28 INR 1.2 07/06/17 06:28 APTT 33 SECONDS (21-34) D 07/06/17 06:28 Assessment and Plan - Assessment and Plan (Free Text) Assessment: Patient seen and evaluated with the medical transport specialist Plan of care as documented
--- NOTE | 2017-07-06 10:31 | CP.CCUPN ---
CCU Subjective - Physician Review Subjective (Free Text): Patient was seen and examined at bedside. Patient is currently intubated and on sedation. Patient is responsive to touch stimuli. Patient's was at bedside. Unable to evaluate adequate ROS due to patient's current clinical status. CCU Objective - Vital Signs / Intake & Output Vital Signs (Last 4 hours): Vital Signs Temp Pulse Resp BP Pulse Ox 07/06/17 09:48 96 H 13 135/84 100 07/06/17 09:45 93 H 17 100 07/06/17 09:33 137/83 07/06/17 09:30 85 16 100 07/06/17 09:29 81 16 137/83 100 07/06/17 09:15 82 16 100 07/06/17 09:00 77 16 100 07/06/17 08:48 79 15 120/68 100 07/06/17 08:46 99.5 F 100 07/06/17 08:45 82 16 100 07/06/17 08:30 80 16 100 07/06/17 08:15 84 16 100 07/06/17 08:00 100.3 F H 84 16 100 07/06/17 07:48 86 16 112/69 100 07/06/17 07:45 87 16 100 07/06/17 07:30 91 H 16 117/74 100 07/06/17 07:15 97 H 16 100 07/06/17 07:06 109 H 21 100 Intake and Output (Last 8hrs): Intake & Output 07/05/17 07/06/17 07/06/17 22:59 06:59 14:59 Intake Total 567.6 189.6 63.6 Output Total 440 240 80 Balance 127.6 -50.4 -16.4 Intake: IV 100 100 Intake, IV Amount 367.6 89.6 33.6 Left Hand 250 0 Right Antecubital 44.8 33.6 right hand 72.8 89.6 0 Oral 100 30 Output: Urine 440 240 80 Urethral ([place]) 440 240 80 Other: # Bowel Movements 0 0 - Physical Exam Head: Positive for: Atraumatic, Normocephalic Mouth: Positive for: Moist Mucous Membranes Respiratory/Chest: Positive for: Good Air Exchange, Rales, Other (Currently intubated ). Negative for: Accessory Muscle Use Cardiovascular: Positive for: Regular Rate and Rhythm, Normal S1, S2 Abdomen: Positive for: Distention, Normal Bowel Sounds. Negative for: Tenderness Upper Extremity: Positive for: Normal Inspection Lower Extremity: Positive for: Swelling Neurological: Negative for: GCS=15, Speech Normal Skin: Positive for: Normal Color Psychiatric: Negative for: Alert, Oriented x 3 - Medications Active Medications: Active Medications Generic Name Dose Route Start Last Admin Trade Name Freq PRN Reason Stop Dose Admin Acetaminophen 650 mg 07/05/17 16:02 07/05/17 16:28 Tylenol 650mg/20.3ml Solution Ud PO 650 mg Q6 PRN Administration Fever 100.6 and above Aspirin 81 mg 07/04/17 12:30 07/06/17 09:33 Ecotrin PO 81 mg DAILY RANDOLPH Administration Clopidogrel Bisulfate 75 mg 07/05/17 17:30 07/06/17 09:33 Plavix PO 75 mg DAILY RANDOLPH Administration Colchicine 0.6 mg 07/06/17 11:00 Colocrys PO 07/06/17 11:01 ONCE ONE Famotidine 20 mg 07/03/17 11:00 07/06/17 09:33 Pepcid IVP 20 mg DAILY RANDOLPH Administration Furosemide 40 mg 07/03/17 10:00 07/05/17 22:41 Lasix IVP 40 mg Q12 RANDOLPH Administration Heparin Sodium (Porcine) 5,000 units 07/05/17 22:00 07/06/17 09:33 Heparin SC 5,000 units Q12 RANDOLPH Administration Hydralazine HCl 10 mg 07/03/17 11:04 07/06/17 05:24 Apresoline IVP Not Given Q6H RANDOLPH Nitroglycerin/Dextrose 50 mg in 250 mls @ 9 mls/hr 07/05/17 15:00 07/05/17 17 :31 Nitroglycerin 50 Mg/250 Ml D5w IV Not Given .Q24H RANDOLPH Protocol 30 MCG/MIN Propofol 1,000 mg in 100 mls @ 2.787 mls/hr 07/05/17 14:56 07/06/17 06:55 Diprivan IV 20 mcg/kg/min .Q24H PRN 11.148 mls/hr TITRATE PER MD ORDER Administration Protocol 5 MCG/KG/MIN Piperacillin Sod/Tazobactam Sod 2.25 gm in 50 mls @ 100 mls/hr 07/05/17 17:15 07/06/17 05:26 Zosyn 2.25 Gm Iv Premix IVPB 100 mls/hr Q6H RANDOLPH Administration Insulin Human Regular 0 unit 07/05/17 18:00 07/06/17 05:24 Novolin R SC Not Given Q6H [facility] Protocol Losartan Potassium 50 mg 07/05/17 10:00 07/06/17 09:34 Cozaar PO 50 mg BID RANDOLPH Administration Metoprolol Tartrate 25 mg 07/03/17 10:00 07/06/17 09:33 Lopressor PO 25 mg BID RANDOLPH Administration Rosuvastatin Calcium 10 mg 07/03/17 22:00 07/05/17 22:41 Crestor PO 10 mg HS RANDOLPH Administration - Patient Studies Lab Studies: Microbiology Studies 07/02/17 23:00 Blood Culture - Preliminary Blood-Venous NO GROWTH AFTER 3 DAYS 07/02/17 22:45 Blood Culture - Preliminary Blood-Venous NO GROWTH AFTER 3 DAYS Lab Studies 07/06/17 07/06/17 07/06/17 Range/Units 06:28 06:28 06:28 WBC 8.8 (4.8-10.8) K/uL RBC 3.42 L (4.40-5.90) Mil/uL Hgb 9.6 L (12.0-18.0) g/dL Hct 29.4 L (35.0-51.0) % MCV 85.8 (80.0-94.0) fL MCH 28.0 (27.0-31.0) pg MCHC 32.7 L (33.0-37.0) g/dL RDW 18.5 H (11.5-14.5) % Plt Count 178 (130-400) K/uL MPV 8.6 (7.2-11.7) fL Neut % (Auto) 80.5 H (50.0-75.0) % Lymph % (Auto) 11.4 L (20.0-40.0) % [place] % (Auto) 6.5 (0.0-10.0) % Eos % (Auto) 1.3 (0.0-4.0) % Baso % (Auto) 0.3 (0.0-2.0) % Neut # 7.1 H (1.8-7.0) K/uL Lymph # 1.0 (1.0-4.3) K/uL [place] # 0.6 (0.0-0.8) K/uL Eos # 0.1 (0.0-0.7) K/uL Baso # 0.0 (0.0-0.2) K/uL PT 13.6 H (9.7-12.2) SECONDS INR 1.2 APTT 33 D (21-34) SECONDS Puncture Site pCO2 (35-45) mm/Hg pO2 (80-100) mm/Hg HCO3 (21-28) mmol/L ABG pH (7.35-7.45) ABG Total CO2 (22-28) mmol/L ABG O2 Saturation (95-98) % ABG Base Excess (-2.0-3.0) mmol/L ABG Hemoglobin (11.7-17.4) g/dL ABG Carboxyhemoglobin (0.5-1.5) % POC ABG HHb (Measured) (0.0-5.0) % ABG Methemoglobin (0.0-3.0) % [place] Test A-a O2 Difference mm/Hg Respiratory Index Hgb O2 Saturation (95.0-98.0) % Liter Flow Vent Mode Mechanical Rate FiO2 % Tidal Volume PEEP Inspiratory BiPAP Expiratory BiPAP Sodium 135 (132-148) mmol/L Potassium 3.7 (3.6-5.2) mmol/L Chloride 98 (98-107) mmol/L Carbon Dioxide 30 (22-30) mmol/L Anion Gap 11 (10-20) BUN 35 H (9-20) mg/dL Creatinine 2.3 H (0.8-1.5) mg/dL Est GFR ( Amer) 35 Est GFR (Non-Af Amer) 29 POC Glucose (mg/dL) (65-110) mg/dL Random Glucose 133 H (75-110) mg/dL Calcium 8.1 L (8.6-10.4) mg/dl Phosphorus 3.9 (2.5-4.5) mg/dL Magnesium 2.0 (1.6-2.3) mg/dL Total Bilirubin 0.9 (0.2-1.3) mg/dL AST 11 L D (17-59) U/L ALT 35 (21-72) U/L Alkaline Phosphatase 66 (38-126) U/L Total Creatine Kinase 57 (55-170) U/L CK-MB (Mass) 0.57 (0.0-3.38) ng/mL Troponin I 0.2560 H* (0.00-0.120) ng/mL Troponin I, Quant 0.2560 H* (0.00-0.120) ng/mL NT-Pro-B Natriuret Pep 4360 H (0-900) pg/mL Total Protein 6.1 L (6.3-8.3) g/dL Albumin 2.5 L (3.5-5.0) g/dL Globulin 3.6 (2.2-3.9) gm/dL Albumin/Globulin Ratio 0.7 L (1.0-2.1) Urine Color (YELLOW) Urine Clarity (Clear) Urine pH (5.0-8.0) Ur Specific [place] (1.003-1.030) Urine Protein (NEGATIVE) mg/dL Urine Glucose (UA) (Normal) mg/dL Urine Ketones (NEGATIVE) mg/dL Urine Blood (NEGATIVE) Urine Nitrate (NEGATIVE) Urine Bilirubin (NEGATIVE) Urine Urobilinogen (0.2-1.0) mg/dL Ur Leukocyte Esterase (Negative) Edy/uL Urine WBC (Auto) (0-5) /hpf Urine RBC (Auto) (0-3) /hpf Ur Squamous Epith Cells (0-5) /hpf Urine Bacteria (<OCC) Urine Collection Time HRS Urine Total Volume mL Ur Creatinine 24 Hour (800-2800) mg/24hr Creatinine Clearance (107-139) mL/min Ur Protein 24 Hr Calc (42-225) mg/24hr Hep Bs Antibody (NEGATIVE) Hepatitis C Antibody (NEGATIVE) 07/06/17 07/06/17 07/05/17 Range/Units 05:56 05:30 19:01 WBC (4.8-10.8) K/uL RBC (4.40-5.90) Mil/uL Hgb (12.0-18.0) g/dL Hct (35.0-51.0) % MCV (80.0-94.0) fL MCH (27.0-31.0) pg MCHC (33.0-37.0) g/dL RDW (11.5-14.5) % Plt Count (130-400) K/uL MPV (7.2-11.7) fL Neut % (Auto) (50.0-75.0) % Lymph % (Auto) (20.0-40.0) % [place] % (Auto) (0.0-10.0) % Eos % (Auto) (0.0-4.0) % Baso % (Auto) (0.0-2.0) % Neut # (1.8-7.0) K/uL Lymph # (1.0-4.3) K/uL [place] # (0.0-0.8) K/uL Eos # (0.0-0.7) K/uL Baso # (0.0-0.2) K/uL PT (9.7-12.2) SECONDS INR APTT (21-34) SECONDS Puncture Site R rad pCO2 38 (35-45) mm/Hg pO2 140 H (80-100) mm/Hg HCO3 32.8 H (21-28) mmol/L ABG pH 7.55 H (7.35-7.45) ABG Total CO2 34.4 H (22-28) mmol/L ABG O2 Saturation 99.4 H (95-98) % ABG Base Excess 10.1 H (-2.0-3.0) mmol/L ABG Hemoglobin 9.5 L (11.7-17.4) g/dL ABG Carboxyhemoglobin 2.2 H (0.5-1.5) % POC ABG HHb (Measured) 0.6 (0.0-5.0) % ABG Methemoglobin 1.2 (0.0-3.0) % [place] Test Pos A-a O2 Difference 169.0 mm/Hg Respiratory Index 1.2 Hgb O2 Saturation 96.0 (95.0-98.0) % Liter Flow Vent Mode Prvc Mechanical Rate 16 FiO2 50.0 % Tidal Volume 500 PEEP 5 Inspiratory BiPAP Expiratory BiPAP Sodium (132-148) mmol/L Potassium (3.6-5.2) mmol/L Chloride (98-107) mmol/L Carbon Dioxide (22-30) mmol/L Anion Gap (10-20) BUN (9-20) mg/dL Creatinine (0.8-1.5) mg/dL Est GFR ( Amer) Est GFR (Non-Af Amer) POC Glucose (mg/dL) 151 H (65-110) mg/dL Random Glucose (75-110) mg/dL Calcium (8.6-10.4) mg/dl Phosphorus (2.5-4.5) mg/dL Magnesium (1.6-2.3) mg/dL Total Bilirubin (0.2-1.3) mg/dL AST (17-59) U/L ALT (21-72) U/L Alkaline Phosphatase (38-126) U/L Total Creatine Kinase (55-170) U/L CK-MB (Mass) (0.0-3.38) ng/mL Troponin I (0.00-0.120) ng/mL Troponin I, Quant (0.00-0.120) ng/mL NT-Pro-B Natriuret Pep (0-900) pg/mL Total Protein (6.3-8.3) g/dL Albumin (3.5-5.0) g/dL Globulin (2.2-3.9) gm/dL Albumin/Globulin Ratio (1.0-2.1) Urine Color Yellow (YELLOW) Urine Clarity Hazy (Clear) Urine pH 5.0 (5.0-8.0) Ur Specific [place] 1.012 (1.003-1.030) Urine Protein 2+ H (NEGATIVE) mg/dL Urine Glucose (UA) 1+ H (Normal) mg/dL Urine Ketones Negative (NEGATIVE) mg/dL Urine Blood 3+ H (NEGATIVE) Urine Nitrate Negative (NEGATIVE) Urine Bilirubin Negative (NEGATIVE) Urine Urobilinogen Normal (0.2-1.0) mg/dL Ur Leukocyte Esterase Trace (Negative) Edy/uL Urine WBC (Auto) 9 H (0-5) /hpf Urine RBC (Auto) 621 H (0-3) /hpf Ur Squamous Epith Cells < 1 (0-5) /hpf Urine Bacteria Mod H (<OCC) Urine Collection Time HRS Urine Total Volume mL Ur Creatinine 24 Hour (800-2800) mg/24hr Creatinine Clearance (107-139) mL/min Ur Protein 24 Hr Calc (42-225) mg/24hr Hep Bs Antibody (NEGATIVE) Hepatitis C Antibody (NEGATIVE) 10/15/17 10/15/17 10/15/17 Range/Units 19:01 17:52 16:39 WBC (4.8-10.8) K/uL RBC (4.40-5.90) Mil/uL Hgb (12.0-18.0) g/dL Hct (35.0-51.0) % MCV (80.0-94.0) fL MCH (27.0-31.0) pg MCHC (33.0-37.0) g/dL RDW (11.5-14.5) % Plt Count (130-400) K/uL MPV (7.2-11.7) fL Neut % (Auto) (50.0-75.0) % Lymph % (Auto) (20.0-40.0) % [place] % (Auto) (0.0-10.0) % Eos % (Auto) (0.0-4.0) % Baso % (Auto) (0.0-2.0) % Neut # (1.8-7.0) K/uL Lymph # (1.0-4.3) K/uL [place] # (0.0-0.8) K/uL Eos # (0.0-0.7) K/uL Baso # (0.0-0.2) K/uL PT (9.7-12.2) SECONDS INR APTT (21-34) SECONDS Puncture Site Rra pCO2 58 H (35-45) mm/Hg pO2 321 H (80-100) mm/Hg HCO3 29.8 H (21-28) mmol/L ABG pH 7.37 (7.35-7.45) ABG Total CO2 35.3 H (22-28) mmol/L ABG O2 Saturation 99.9 H (95-98) % ABG Base Excess 6.3 H (-2.0-3.0) mmol/L ABG Hemoglobin 14.3 (11.7-17.4) g/dL ABG Carboxyhemoglobin 2.5 H (0.5-1.5) % POC ABG HHb (Measured) 0.1 (0.0-5.0) % ABG Methemoglobin 1.1 (0.0-3.0) % [place] Test Na A-a O2 Difference 320.0 mm/Hg Respiratory Index 1.0 Hgb O2 Saturation 96.2 (95.0-98.0) % Liter Flow Vent Mode Prvc Mechanical Rate 14 FiO2 100.0 % Tidal Volume 500 PEEP 5 Inspiratory BiPAP Expiratory BiPAP Sodium (132-148) mmol/L Potassium (3.6-5.2) mmol/L Chloride (98-107) mmol/L Carbon Dioxide (22-30) mmol/L Anion Gap (10-20) BUN (9-20) mg/dL Creatinine 1.6 H (0.8-1.5) mg/dL Est GFR ( Amer) Est GFR (Non-Af Amer) POC Glucose (mg/dL) 170 H (65-110) mg/dL Random Glucose (75-110) mg/dL Calcium (8.6-10.4) mg/dl Phosphorus (2.5-4.5) mg/dL Magnesium (1.6-2.3) mg/dL Total Bilirubin (0.2-1.3) mg/dL AST (17-59) U/L ALT (21-72) U/L Alkaline Phosphatase (38-126) U/L Total Creatine Kinase (55-170) U/L CK-MB (Mass) (0.0-3.38) ng/mL Troponin I (0.00-0.120) ng/mL Troponin I, Quant (0.00-0.120) ng/mL NT-Pro-B Natriuret Pep (0-900) pg/mL Total Protein (6.3-8.3) g/dL Albumin (3.5-5.0) g/dL Globulin (2.2-3.9) gm/dL Albumin/Globulin Ratio (1.0-2.1) Urine Color (YELLOW) Urine Clarity (Clear) Urine pH (5.0-8.0) Ur Specific [place] (1.003-1.030) Urine Protein (NEGATIVE) mg/dL Urine Glucose (UA) (Normal) mg/dL Urine Ketones (NEGATIVE) mg/dL Urine Blood (NEGATIVE) Urine Nitrate (NEGATIVE) Urine Bilirubin (NEGATIVE) Urine Urobilinogen (0.2-1.0) mg/dL Ur Leukocyte Esterase (Negative) Edy/uL Urine WBC (Auto) (0-5) /hpf Urine RBC (Auto) (0-3) /hpf Ur Squamous Epith Cells (0-5) /hpf Urine Bacteria (<OCC) Urine Collection Time 24 HRS Urine Total Volume 3700 mL Ur Creatinine 24 Hour 1239.5 (800-2800) mg/24hr Creatinine Clearance 52.0 L (107-139) mL/min Ur Protein 24 Hr Calc 2553.0 H (42-225) mg/24hr Hep Bs Antibody (NEGATIVE) Hepatitis C Antibody (NEGATIVE) 07/05/17 07/05/17 07/05/17 Range/Units 14:16 12:02 11:26 WBC (4.8-10.8) K/uL RBC (4.40-5.90) Mil/uL Hgb (12.0-18.0) g/dL Hct (35.0-51.0) % MCV (80.0-94.0) fL MCH (27.0-31.0) pg MCHC (33.0-37.0) g/dL RDW (11.5-14.5) % Plt Count (130-400) K/uL MPV (7.2-11.7) fL Neut % (Auto) (50.0-75.0) % Lymph % (Auto) (20.0-40.0) % [place] % (Auto) (0.0-10.0) % Eos % (Auto) (0.0-4.0) % Baso % (Auto) (0.0-2.0) % Neut # (1.8-7.0) K/uL Lymph # (1.0-4.3) K/uL [place] # (0.0-0.8) K/uL Eos # (0.0-0.7) K/uL Baso # (0.0-0.2) K/uL PT (9.7-12.2) SECONDS INR APTT (21-34) SECONDS Puncture Site Rr Rr pCO2 52 H 54 H (35-45) mm/Hg pO2 73 L 124 H (80-100) mm/Hg HCO3 30.4 H 28.6 H (21-28) mmol/L ABG pH 7.41 7.37 (7.35-7.45) ABG Total CO2 34.6 H 32.9 H (22-28) mmol/L ABG O2 Saturation 96.2 98.8 H (95-98) % ABG Base Excess 7.1 H 4.8 H (-2.0-3.0) mmol/L ABG Hemoglobin 11.5 L 11.1 L (11.7-17.4) g/dL ABG Carboxyhemoglobin 3.2 H 2.9 H (0.5-1.5) % POC ABG HHb (Measured) 3.6 1.2 (0.0-5.0) % ABG Methemoglobin 1.1 0.8 (0.0-3.0) % [place] Test Pos Pos A-a O2 Difference 40.0 44.0 mm/Hg Respiratory Index 0.5 0.4 Hgb O2 Saturation 92.2 L 95.1 (95.0-98.0) % Liter Flow 4.0 Vent Mode Bipap Mechanical Rate FiO2 25.0 33.0 % Tidal Volume PEEP Inspiratory BiPAP 14 Expiratory BiPAP 6 Sodium (132-148) mmol/L Potassium (3.6-5.2) mmol/L Chloride (98-107) mmol/L Carbon Dioxide (22-30) mmol/L Anion Gap (10-20) BUN (9-20) mg/dL Creatinine (0.8-1.5) mg/dL Est GFR ( Amer) Est GFR (Non-Af Amer) POC Glucose (mg/dL) 283 H (65-110) mg/dL Random Glucose (75-110) mg/dL Calcium (8.6-10.4) mg/dl Phosphorus (2.5-4.5) mg/dL Magnesium (1.6-2.3) mg/dL Total Bilirubin (0.2-1.3) mg/dL AST (17-59) U/L ALT (21-72) U/L Alkaline Phosphatase (38-126) U/L Total Creatine Kinase (55-170) U/L CK-MB (Mass) (0.0-3.38) ng/mL Troponin I (0.00-0.120) ng/mL Troponin I, Quant (0.00-0.120) ng/mL NT-Pro-B Natriuret Pep (0-900) pg/mL Total Protein (6.3-8.3) g/dL Albumin (3.5-5.0) g/dL Globulin (2.2-3.9) gm/dL Albumin/Globulin Ratio (1.0-2.1) Urine Color (YELLOW) Urine Clarity (Clear) Urine pH (5.0-8.0) Ur Specific [place] (1.003-1.030) Urine Protein (NEGATIVE) mg/dL Urine Glucose (UA) (Normal) mg/dL Urine Ketones (NEGATIVE) mg/dL Urine Blood (NEGATIVE) Urine Nitrate (NEGATIVE) Urine Bilirubin (NEGATIVE) Urine Urobilinogen (0.2-1.0) mg/dL Ur Leukocyte Esterase (Negative) Edy/uL Urine WBC (Auto) (0-5) /hpf Urine RBC (Auto) (0-3) /hpf Ur Squamous Epith Cells (0-5) /hpf Urine Bacteria (<OCC) Urine Collection Time HRS Urine Total Volume mL Ur Creatinine 24 Hour (800-2800) mg/24hr Creatinine Clearance (107-139) mL/min Ur Protein 24 Hr Calc (42-225) mg/24hr Hep Bs Antibody (NEGATIVE) Hepatitis C Antibody (NEGATIVE) 07/05/17 07/05/17 Range/Units 06:33 06:33 WBC (4.8-10.8) K/uL RBC (4.40-5.90) Mil/uL Hgb (12.0-18.0) g/dL Hct (35.0-51.0) % MCV (80.0-94.0) fL MCH (27.0-31.0) pg MCHC (33.0-37.0) g/dL RDW (11.5-14.5) % Plt Count (130-400) K/uL MPV (7.2-11.7) fL Neut % (Auto) (50.0-75.0) % Lymph % (Auto) (20.0-40.0) % [place] % (Auto) (0.0-10.0) % Eos % (Auto) (0.0-4.0) % Baso % (Auto) (0.0-2.0) % Neut # (1.8-7.0) K/uL Lymph # (1.0-4.3) K/uL [place] # (0.0-0.8) K/uL Eos # (0.0-0.7) K/uL Baso # (0.0-0.2) K/uL PT (9.7-12.2) SECONDS INR APTT (21-34) SECONDS Puncture Site pCO2 (35-45) mm/Hg pO2 (80-100) mm/Hg HCO3 (21-28) mmol/L ABG pH (7.35-7.45) ABG Total CO2 (22-28) mmol/L ABG O2 Saturation (95-98) % ABG Base Excess (-2.0-3.0) mmol/L ABG Hemoglobin (11.7-17.4) g/dL ABG Carboxyhemoglobin (0.5-1.5) % POC ABG HHb (Measured) (0.0-5.0) % ABG Methemoglobin (0.0-3.0) % [place] Test A-a O2 Difference mm/Hg Respiratory Index Hgb O2 Saturation (95.0-98.0) % Liter Flow Vent Mode Mechanical Rate FiO2 % Tidal Volume PEEP Inspiratory BiPAP Expiratory BiPAP Sodium (132-148) mmol/L Potassium (3.6-5.2) mmol/L Chloride (98-107) mmol/L Carbon Dioxide (22-30) mmol/L Anion Gap (10-20) BUN (9-20) mg/dL Creatinine (0.8-1.5) mg/dL Est GFR ( Amer) Est GFR (Non-Af Amer) POC Glucose (mg/dL) (65-110) mg/dL Random Glucose (75-110) mg/dL Calcium (8.6-10.4) mg/dl Phosphorus (2.5-4.5) mg/dL Magnesium (1.6-2.3) mg/dL Total Bilirubin (0.2-1.3) mg/dL AST (17-59) U/L ALT (21-72) U/L Alkaline Phosphatase (38-126) U/L Total Creatine Kinase (55-170) U/L CK-MB (Mass) (0.0-3.38) ng/mL Troponin I (0.00-0.120) ng/mL Troponin I, Quant (0.00-0.120) ng/mL NT-Pro-B Natriuret Pep (0-900) pg/mL Total Protein (6.3-8.3) g/dL Albumin (3.5-5.0) g/dL Globulin (2.2-3.9) gm/dL Albumin/Globulin Ratio (1.0-2.1) Urine Color (YELLOW) Urine Clarity (Clear) Urine pH (5.0-8.0) Ur Specific [place] (1.003-1.030) Urine Protein (NEGATIVE) mg/dL Urine Glucose (UA) (Normal) mg/dL Urine Ketones (NEGATIVE) mg/dL Urine Blood (NEGATIVE) Urine Nitrate (NEGATIVE) Urine Bilirubin (NEGATIVE) Urine Urobilinogen (0.2-1.0) mg/dL Ur Leukocyte Esterase (Negative) Edy/uL Urine WBC (Auto) (0-5) /hpf Urine RBC (Auto) (0-3) /hpf Ur Squamous Epith Cells (0-5) /hpf Urine Bacteria (<OCC) Urine Collection Time HRS Urine Total Volume mL Ur Creatinine 24 Hour (800-2800) mg/24hr Creatinine Clearance (107-139) mL/min Ur Protein 24 Hr Calc (42-225) mg/24hr Hep Bs Antibody Negative (NEGATIVE) Hepatitis C Antibody Negative (NEGATIVE) Laboratory Results - last 24 hr 07/05/17 07/05/17 07/05/17 06:33 06:33 11:26 WBC RBC Hgb Hct MCV MCH MCHC RDW Plt Count MPV Neut % (Auto) Lymph % (Auto) [place] % (Auto) Eos % (Auto) Baso % (Auto) Neut # Lymph # [place] # Eos # Baso # PT INR APTT Puncture Site Rr pCO2 54 H pO2 124 H HCO3 28.6 H ABG pH 7.37 ABG Total CO2 32.9 H ABG O2 Saturation 98.8 H ABG Base Excess 4.8 H ABG Hemoglobin 11.1 L ABG Carboxyhemoglobin 2.9 H POC ABG HHb (Measured) 1.2 ABG Methemoglobin 0.8 [place] Test Pos A-a O2 Difference 44.0 Respiratory Index 0.4 Hgb O2 Saturation 95.1 Liter Flow 4.0 Vent Mode Mechanical Rate FiO2 33.0 Tidal Volume PEEP Inspiratory BiPAP Expiratory BiPAP Sodium Potassium Chloride Carbon Dioxide Anion Gap BUN Creatinine Est GFR ( Amer) Est GFR (Non-Af Amer) POC Glucose (mg/dL) Random Glucose Calcium Phosphorus Magnesium Total Bilirubin AST ALT Alkaline Phosphatase Total Creatine Kinase CK-MB (Mass) Troponin I Troponin I, Quant NT-Pro-B Natriuret Pep Total Protein Albumin Globulin Albumin/Globulin Ratio Urine Color Urine Clarity Urine pH Ur Specific [place] Urine Protein Urine Glucose (UA) Urine Ketones Urine Blood Urine Nitrate Urine Bilirubin Urine Urobilinogen Ur Leukocyte Esterase Urine WBC (Auto) Urine RBC (Auto) Ur Squamous Epith Cells Urine Bacteria Urine Collection Time Urine Total Volume Ur Creatinine 24 Hour Creatinine Clearance Ur Protein 24 Hr Calc Hep Bs Antibody Negative Hepatitis C Antibody Negative 07/05/17 07/05/17 07/05/17 12:02 14:16 16:39 WBC RBC Hgb Hct MCV MCH MCHC RDW Plt Count MPV Neut % (Auto) Lymph % (Auto) [place] % (Auto) Eos % (Auto) Baso % (Auto) Neut # Lymph # [place] # Eos # Baso # PT INR APTT Puncture Site Rr Rra pCO2 52 H 58 H pO2 73 L 321 H HCO3 30.4 H 29.8 H ABG pH 7.41 7.37 ABG Total CO2 34.6 H 35.3 H ABG O2 Saturation 96.2 99.9 H ABG Base Excess 7.1 H 6.3 H ABG Hemoglobin 11.5 L 14.3 ABG Carboxyhemoglobin 3.2 H 2.5 H POC ABG HHb (Measured) 3.6 0.1 ABG Methemoglobin 1.1 1.1 [place] Test Pos Na A-a O2 Difference 40.0 320.0 Respiratory Index 0.5 1.0 Hgb O2 Saturation 92.2 L 96.2 Liter Flow Vent Mode Bipap Prvc Mechanical Rate 14 FiO2 25.0 100.0 Tidal Volume 500 PEEP 5 Inspiratory BiPAP 14 Expiratory BiPAP 6 Sodium Potassium Chloride Carbon Dioxide Anion Gap BUN Creatinine Est GFR ( Amer) Est GFR (Non-Af Amer) POC Glucose (mg/dL) 283 H Random Glucose Calcium Phosphorus Magnesium Total Bilirubin AST ALT Alkaline Phosphatase Total Creatine Kinase CK-MB (Mass) Troponin I Troponin I, Quant NT-Pro-B Natriuret Pep Total Protein Albumin Globulin Albumin/Globulin Ratio Urine Color Urine Clarity Urine pH Ur Specific [place] Urine Protein Urine Glucose (UA) Urine Ketones Urine Blood Urine Nitrate Urine Bilirubin Urine Urobilinogen Ur Leukocyte Esterase Urine WBC (Auto) Urine RBC (Auto) Ur Squamous Epith Cells Urine Bacteria Urine Collection Time Urine Total Volume Ur Creatinine 24 Hour Creatinine Clearance Ur Protein 24 Hr Calc Hep Bs Antibody Hepatitis C Antibody 07/05/17 07/05/17 07/05/17 17:52 19:01 19:01 WBC RBC Hgb Hct MCV MCH MCHC RDW Plt Count MPV Neut % (Auto) Lymph % (Auto) [place] % (Auto) Eos % (Auto) Baso % (Auto) Neut # Lymph # [place] # Eos # Baso # PT INR APTT Puncture Site pCO2 pO2 HCO3 ABG pH ABG Total CO2 ABG O2 Saturation ABG Base Excess ABG Hemoglobin ABG Carboxyhemoglobin POC ABG HHb (Measured) ABG Methemoglobin [place] Test A-a O2 Difference Respiratory Index Hgb O2 Saturation Liter Flow Vent Mode Mechanical Rate FiO2 Tidal Volume PEEP Inspiratory BiPAP Expiratory BiPAP Sodium Potassium Chloride Carbon Dioxide Anion Gap BUN Creatinine 1.6 H Est GFR ( Amer) Est GFR (Non-Af Amer) POC Glucose (mg/dL) 170 H Random Glucose Calcium Phosphorus Magnesium Total Bilirubin AST ALT Alkaline Phosphatase Total Creatine Kinase CK-MB (Mass) Troponin I Troponin I, Quant NT-Pro-B Natriuret Pep Total Protein Albumin Globulin Albumin/Globulin Ratio Urine Color Yellow Urine Clarity Hazy Urine pH 5.0 Ur Specific [place] 1.012 Urine Protein 2+ H Urine Glucose (UA) 1+ H Urine Ketones Negative Urine Blood 3+ H Urine Nitrate Negative Urine Bilirubin Negative Urine Urobilinogen Normal Ur Leukocyte Esterase Trace Urine WBC (Auto) 9 H Urine RBC (Auto) 621 H Ur Squamous Epith Cells < 1 Urine Bacteria Mod H Urine Collection Time 24 Urine Total Volume 3700 Ur Creatinine 24 Hour 1239.5 Creatinine Clearance 52.0 L Ur Protein 24 Hr Calc 2553.0 H Hep Bs Antibody Hepatitis C Antibody 07/06/17 07/06/17 07/06/17 05:30 05:56 06:28 WBC 8.8 RBC 3.42 L Hgb 9.6 L Hct 29.4 L MCV 85.8 MCH 28.0 MCHC 32.7 L RDW 18.5 H Plt Count 178 MPV 8.6 Neut % (Auto) 80.5 H Lymph % (Auto) 11.4 L [place] % (Auto) 6.5 Eos % (Auto) 1.3 Baso % (Auto) 0.3 Neut # 7.1 H Lymph # 1.0 [place] # 0.6 Eos # 0.1 Baso # 0.0 PT INR APTT Puncture Site R rad pCO2 38 pO2 140 H HCO3 32.8 H ABG pH 7.55 H ABG Total CO2 34.4 H ABG O2 Saturation 99.4 H ABG Base Excess 10.1 H ABG Hemoglobin 9.5 L ABG Carboxyhemoglobin 2.2 H POC ABG HHb (Measured) 0.6 ABG Methemoglobin 1.2 [place] Test Pos A-a O2 Difference 169.0 Respiratory Index 1.2 Hgb O2 Saturation 96.0 Liter Flow Vent Mode Prvc Mechanical Rate 16 FiO2 50.0 Tidal Volume 500 PEEP 5 Inspiratory BiPAP Expiratory BiPAP Sodium Potassium Chloride Carbon Dioxide Anion Gap BUN Creatinine Est GFR ( Amer) Est GFR (Non-Af Amer) POC Glucose (mg/dL) 151 H Random Glucose Calcium Phosphorus Magnesium Total Bilirubin AST ALT Alkaline Phosphatase Total Creatine Kinase CK-MB (Mass) Troponin I Troponin I, Quant NT-Pro-B Natriuret Pep Total Protein Albumin Globulin Albumin/Globulin Ratio Urine Color Urine Clarity Urine pH Ur Specific [place] Urine Protein Urine Glucose (UA) Urine Ketones Urine Blood Urine Nitrate Urine Bilirubin Urine Urobilinogen Ur Leukocyte Esterase Urine WBC (Auto) Urine RBC (Auto) Ur Squamous Epith Cells Urine Bacteria Urine Collection Time Urine Total Volume Ur Creatinine 24 Hour Creatinine Clearance Ur Protein 24 Hr Calc Hep Bs Antibody Hepatitis C Antibody 07/06/17 07/06/17 06:28 06:28 WBC RBC Hgb Hct MCV MCH MCHC RDW Plt Count MPV Neut % (Auto) Lymph % (Auto) [place] % (Auto) Eos % (Auto) Baso % (Auto) Neut # Lymph # [place] # Eos # Baso # PT 13.6 H INR 1.2 APTT 33 D Puncture Site pCO2 pO2 HCO3 ABG pH ABG Total CO2 ABG O2 Saturation ABG Base Excess ABG Hemoglobin ABG Carboxyhemoglobin POC ABG HHb (Measured) ABG Methemoglobin [place] Test A-a O2 Difference Respiratory Index Hgb O2 Saturation Liter Flow Vent Mode Mechanical Rate FiO2 [place] Volume PEEP Inspiratory BiPAP Expiratory BiPAP Sodium 135 Potassium 3.7 Chloride 98 Carbon Dioxide 30 Anion Gap 11 BUN 35 H Creatinine 2.3 H Est GFR ( Amer) 35 Est GFR (Non-Af Amer) 29 POC Glucose (mg/dL) Random Glucose 133 H Calcium 8.1 L Phosphorus 3.9 Magnesium 2.0 Total Bilirubin 0.9 AST 11 L D ALT 35 Alkaline Phosphatase 66 Total Creatine Kinase 57 CK-MB (Mass) 0.57 Troponin I 0.2560 H* Troponin I, Quant 0.2560 H* NT-Pro-B Natriuret Pep 4360 H Total Protein 6.1 L Albumin 2.5 L Globulin 3.6 Albumin/Globulin Ratio 0.7 L Urine Color Urine Clarity Urine pH Ur Specific [place] Urine Protein Urine Glucose (UA) Urine Ketones Urine Blood Urine Nitrate Urine Bilirubin Urine Urobilinogen Ur Leukocyte Esterase Urine WBC (Auto) Urine RBC (Auto) Ur Squamous Epith Cells Urine Bacteria Urine Collection Time Urine Total Volume Ur Creatinine 24 Hour Creatinine Clearance Ur Protein 24 Hr Calc Hep Bs Antibody Hepatitis C Antibody EKG/Cardiology Studies: Cardiology / EKG Studies 07/05/17 17:24 ELECTROCARDIOGRAM Routine Comment: Mode Of Transportation: PORTABLE Reason For Exam: R/O OR 07/06/17 08:00 ELECTROCARDIOGRAM Routine Comment: Mode Of Transportation: PORTABLE Reason For Exam: R/O OR Fingerstick Blood Sugar Results: 170 Review of Systems - Review of Systems Review of Systems: Unable to evaluate adequate ROS due to patient's current clinical status Critical Care Progress Note - Ventilator Checklist Daily Sedation Vacation: Yes Daily Assessment of Readiness to Wean: No Daily Spontaneous Breathing Trial: No PUD Prophalyxis: Yes DVT Prophylaxis: Yes - Nutrition Nutrition: Nutrition Category Date Time Status NPO Diet [DIET] Diets 07/06/17 Breakfast Active Assessment/Plan - Assessment and Plan (Free Text) Assessment: 67 M with past medical history of for Diabetes, CAD, CABG, Hypercholesterolemia , and TIA, who was noted by his to be lethargic, peripheral edema, difficulty with breathing. Patient was seen by his PMD, who referred him to an urgent care or ER. Patient was found to be hypertensive, lethargic hypoglycemic , with retaining CO2, needing very minimal O2. 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 Butler----> Help appreciated Medication/Management: * Lopressor 25mg PO BID * Hydralazine 10mg IVP Q6H (Hold with SBP <120mm Hg) * Crestor 10mg PO HS * Aspirin 81mg PO daily Pulm: Respiratory distress secondary to possible CHF exacerbation Chest X-ray (07/06/17): Moderate to severe venous congestion with prominent confluent bibasilar airspace opacities and small bilateral pleural effusions and Nodular consolidative changes at the right lung base Medication/Management: * Intubated * Lasix 40mg IVP Q12 ( held due to acute GOUT exacerbation) GI: No acute issues Endo: Hx of Diabetes Medication/Management: * Accuchecks * ISS (Medium dose protocol) MSK: Acute gout exacerbation, hx of GOUT Medication/Management: * Allopurinol 100mg PO daily ( Discontinued 07/06/17) * Colchicine 0.6mg PO ONCE ID: Fever (Tmax: 100.6), No leukocytosis Sputum culture: Gram stain ( Few Gram Positive Cocci), pending culture Chest X-ray (07/06/17): Moderate to severe venous congestion with prominent confluent bibasilar airspace opacities and small bilateral pleural effusions and Nodular consolidative changes at the right lung base Medication/Management: * Zosyn 2.25 gm IV premix Q6H (started 07/05/17) * Tylenol 650mg PO Q6 prn for fever> 100.6 Prophylaxis: DVT: SCDS contraindicated due to B/L LE edema. Heparin 5,000 units SC Q12H GI: Pepcid 20mg IVP daily NPO Aspiration precautions
[2017-07-06 10:44] LABS: ANA TITER 1:40
--- NOTE | 2017-07-06 11:50 | CP.PCM.PN ---
Objective - Vital Signs/Intake and Output Vital Signs (last 24 hours): Temp Pulse Resp BP Pulse Ox 99.5 F 96 H 13 135/84 100 07/06/17 08:46 07/06/17 09:48 07/06/17 09:48 07/06/17 09:48 07/06/17 09:48 Intake and Output: 07/06/17 07/06/17 06:59 18:59 Intake Total 504.4 63.6 Output Total 400 80 Balance 104.4 -16.4 - Medications Medications: Current Medications Acetaminophen (Tylenol 650mg/20.3ml Solution Ud) 650 mg PO Q6 PRN PRN Reason: Fever 100.6 and above Last Admin: 07/05/17 16:28 Dose: 650 mg Aspirin (Ecotrin) [address] [facility] Last Admin: 07/06/17 09:33 Dose: 81 mg Clopidogrel Bisulfate (Plavix) [address] [facility] Last Admin: 07/06/17 09:33 Dose: 75 mg Famotidine (Pepcid) [address] [facility] Last Admin: 07/06/17 09:33 Dose: 20 mg Furosemide (Lasix) 40 mg IVP Q12 [facility] Last Admin: 07/06/17 10:43 Dose: Not Given Heparin Sodium (Porcine) (Heparin) 5,000 units SC Q12 [facility] Last Admin: 07/06/17 09:33 Dose: 5,000 units Hydralazine HCl (Apresoline) 10 mg IVP Q6H [facility] Last Admin: 07/06/17 10:47 Dose: 10 mg Nitroglycerin/Dextrose (Nitroglycerin 50 Mg/250 Ml D5w) 50 mg in 250 mls @ 9 mls/hr IV .Q24H [facility]; 30 MCG/MIN PRN Reason: Protocol Last Admin: 07/05/17 17:31 Dose: Not Given Propofol (Diprivan) 1,000 mg in 100 mls @ 2.787 mls/hr IV .Q24H PRN; Protocol; 5 MCG/KG/MIN PRN Reason: TITRATE PER MD ORDER Last Admin: 07/06/17 06:55 Dose: 20 mcg/kg/min, 11.148 mls/hr Piperacillin Sod/Tazobactam Sod (Zosyn 2.25 Gm Iv Premix) 2.25 gm in 50 mls @ 100 mls/hr IVPB Q6H [facility] Last Admin: 07/06/17 10:47 Dose: 100 mls/hr Insulin Human Regular (Novolin R) [address] [facility] PRN Reason: Protocol Last Admin: 07/06/17 05:24 Dose: Not Given Losartan Potassium (Cozaar) [address] [facility] Last Admin: 07/06/17 09:34 Dose: 50 mg Metoprolol Tartrate (Lopressor) [address] [facility] Last Admin: 07/06/17 09:33 Dose: 25 mg Rosuvastatin Calcium (Crestor) [address] [facility] Last Admin: 07/05/17 22:41 Dose: 10 mg - Labs Labs: 07/06/17 06:28 07/06/17 06:28 PT 13.6 SECONDS (9.7-12.2) H 07/06/17 06:28 INR 1.2 07/06/17 06:28 APTT 33 SECONDS (21-34) D 07/06/17 06:28 Assessment and Plan (1) Hypercapnic respiratory failure, chronic Status: Acute (2) Elevated troponin Status: Acute (3) Pulmonary edema Status: Acute (4) Hypoglycemia Status: Acute
--- NOTE | 2017-07-06 11:53 | CT ---
PROCEDURE: CT HEAD WITHOUT CONTRAST. HISTORY: Altered mental status COMPARISON: None available. TECHNIQUE: Axial computed tomography images were obtained through the head/brain without intravenous contrast. Radiation dose: Total exam DLP = 1208 mGy-cm. This CT exam was performed using one or more of the following dose reduction techniques: Automated exposure control, adjustment of the mA and/or kV according to patient size, and/or use of iterative reconstruction technique. FINDINGS: HEMORRHAGE: No intracranial hemorrhage. BRAIN: Scattered focal lucencies in the subcortical and periventricular white matter suggestive for chronic microvascular ischemic change. Stable focal hypodensity in the anterior left frontal periventricular region measuring 6.7 millimeters which may represent chronic lacunar infarct. Additional stable chronic thalamic infarct measuring 5.4 millimeters. Stable chronic infarct in the lateral right cerebellum measuring 8 millimeters. VENTRICLES: Unremarkable. No hydrocephalus. CALVARIUM: Unremarkable. PARANASAL SINUSES: Mucosal thickening of the ethmoid air cells. MASTOID AIR CELLS: Unremarkable as visualized. No inflammatory changes. OTHER FINDINGS: Intracranial arterial calcifications. IMPRESSION: No acute intracranial abnormality. 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 If focal neurologic deficit persists, consider MRI.
[2017-07-06] MEDS: Acetaminophen 650mg/20.3ml solution UD PO PRN (11:58)
--- NOTE | 2017-07-06 12:33 | CARD ---
APPROVED REPORT EKG Measurement Heart [id number] <Conclusion> Normal sinus rhythm with sinus arrhythmia Right bundle branch block Left anterior fascicular block Bifascicular block Abnormal ECG
--- NOTE | 2017-07-06 14:56 | CP.PCM.PN ---
Subjective - Date & Time of Evaluation Date of Evaluation: 07/06/17 Time of Evaluation: 08:45 - Subjective Subjective: patient seen Intubated yesterday for respiratory distress currently sedated intubated, no ther unussual event no bleeding had blood cultures that are negative at bedside -further discussion , reports caoritd stenosis- will follow up Objective - Vital Signs/Intake and Output Vital Signs (last 24 hours): Temp Pulse Resp BP Pulse Ox 100.6 F H 79 16 94/48 L 100 07/06/17 12:00 07/06/17 13:00 07/06/17 13:00 07/06/17 12:49 07/06/17 13:00 Intake and Output: 07/06/17 07/06/17 06:59 18:59 Intake Total 504.4 208.4 Output Total 400 185 Balance 104.4 23.4 - Medications Medications: Current Medications Acetaminophen (Tylenol 650mg/20.3ml Solution Ud) 650 mg PO Q6 PRN PRN Reason: Fever 100.6 and above Last Admin: 07/06/17 11:58 Dose: 650 mg Aspirin (Ecotrin) 81 mg PO DAILY [facility] Last Admin: 07/06/17 09:33 Dose: 81 mg Clopidogrel Bisulfate (Plavix) 75 mg PO DAILY [facility] Last Admin: 07/06/17 09:33 Dose: 75 mg Famotidine (Pepcid) 20 mg IVP DAILY [facility] Last Admin: 07/06/17 09:33 Dose: 20 mg Furosemide (Lasix) 40 mg IVP Q12 [facility] Last Admin: 07/06/17 10:43 Dose: Not Given Heparin Sodium (Porcine) (Heparin) 5,000 units SC Q12 [facility] Last Admin: 07/06/17 09:33 Dose: 5,000 units Hydralazine HCl (Apresoline) 10 mg IVP Q6H [facility] Last Admin: 07/06/17 10:47 Dose: 10 mg Nitroglycerin/Dextrose (Nitroglycerin 50 Mg/250 Ml D5w) 50 mg in 250 mls @ 9 mls/hr IV .Q24H [facility]; 30 MCG/MIN PRN Reason: Protocol Last Admin: 07/05/17 17:31 Dose: Not Given Propofol (Diprivan) 1,000 mg in 100 mls @ 2.787 mls/hr IV .Q24H PRN; Protocol; 5 MCG/KG/MIN PRN Reason: TITRATE PER MD ORDER Last Admin: 07/06/17 06:55 Dose: 20 mcg/kg/min, 11.148 mls/hr Piperacillin Sod/Tazobactam Sod (Zosyn 2.25 Gm Iv Premix) 2.25 gm in 50 mls @ 100 mls/hr IVPB Q6H [facility] Last Admin: 07/06/17 10:47 Dose: 100 mls/hr Insulin Human Regular (Novolin R) 0 unit SC Q6H [facility] PRN Reason: Protocol Last Admin: 07/06/17 11:58 Dose: Not Given Losartan Potassium (Cozaar) 50 mg PO BID [facility] Last Admin: 07/06/17 09:34 Dose: 50 mg Metoprolol Tartrate (Lopressor) 25 mg PO BID [facility] Last Admin: 07/06/17 09:33 Dose: 25 mg Rosuvastatin Calcium (Crestor) 10 mg PO HS [facility] Last Admin: 07/05/17 22:41 Dose: 10 mg - Labs Labs: 07/06/17 06:28 07/06/17 06:28 PT 13.6 SECONDS (9.7-12.2) H 07/06/17 06:28 INR 1.2 07/06/17 06:28 APTT 33 SECONDS (21-34) D 07/06/17 06:28 - Constitutional Appears: Other (sedated intubated ) - Head Exam Head Exam: ATRAUMATIC, NORMOCEPHALIC - Eye Exam Eye Exam: absent: Nystagmus, Periorbital swelling - ENT Exam ENT Exam: Mucous Membranes Moist - Neck Exam Neck Exam: absent: Meningismus - Respiratory Exam Respiratory Exam: Decreased Breath Sounds, NORMAL BREATHING PATTERN. absent: Wheezes - Cardiovascular Exam Cardiovascular Exam: REGULAR RHYTHM - GI/Abdominal Exam GI & Abdominal Exam: Soft, Normal Bowel Sounds - Extremities Exam Extremities Exam: Pedal Edema (but much less than admission) - Neurological Exam Neurological Exam: Altered (sedated) - Skin Skin Exam: Intact, Normal Color Assessment and Plan - Assessment and Plan (Free Text) Assessment: Patient with Pulmonary Edema, elevated troponins CAD, improved sugar , went into respiratory distress-intubated, worsened CRI, Anemia with no grss bleeding , further evaluation and ICU care
[2017-07-06] MEDS: Nitroglycerin 50mg in D5W 50 MG/250 ML BOTTLE IV SCH (15:23)
--- NOTE | 2017-07-06 18:42 | PN ---
DATE: 07/06/2017 NEUROLOGIC PROBLEM: Metabolic encephalopathy, superimposed respiratory failure. PHYSICAL EXAMINATION: VITAL SIGNS: Blood pressure 128/71, mean artery pressure of 86, respiratory rate is 16, temperature afebrile with a pulse rate of 80. The patient is under sedation with intubation. On forcibly opening eyelids, pupils are reactive to light. Good corneal reflex. Gag is present on manipulating the ET tube. Mild response to the noxious stimuli. The patient had hypoxic insult from respiratory failure. Continue the present management. If any change in neuro status, the patient may need repeat CT of the head and intensive program to be done again. We will follow closely. Arslan Carl MD
[2017-07-07] MEDS: (Novolin R) Insulin Human Regular 100 units/ml vial SC SCH ×5 (00:13→23:53)
[2017-07-07 04:25] LABS: CREATININE, RANDOM URINE 66 mg/dL (20-370)
[2017-07-07] MEDS: Piperacill/Tazo 2.25gm in Dex 2.25 GM/50 ML BAG IVPB SCH ×4 (05:17→22:48)
[2017-07-07 05:44] LABS: ABG ALLEN TEST POS; ABG MECHANICAL RATE 16; ARTERIAL BLOOD GAS MODE PRVC; ARTERIAL BLOOD HGB O2 SAT 96.3 % (95.0-98.0); ATERIAL BLOOD GAS PEEP 5; CARBOXYHEMOGLOBIN 2.1 % (0.5-1.5); DRAW SITE R RAD; HHB 0.4 % (0.0-5.0); METHEMOGLOBIN 1.2 % (0.0-3.0)
[2017-07-07 06:36] LABS: BASO % 0.2 % (0.0-2.0); EOS # 0.1 K/uL (0.0-0.7); EOS % 1.4 % (0.0-4.0); HEMATOCRIT 27.5 % (35.0-51.0); LYMPH # 0.8 K/uL (1.0-4.3); LYMPH % 8.5 % (20.0-40.0); MEAN CORPUSCULAR HEMOGLOBIN 27.6 pg (27.0-31.0); MEAN CORPUSCULAR HGB CONC 32.1 g/dL (33.0-37.0); MEAN PLATELET VOLUME 8.6 fL (7.2-11.7); MONO # 0.5 K/uL (0.0-0.8); PLATELET COUNT 190 K/uL (130-400); RED CELL DISTRIBUTION WIDTH 18.7 % (11.5-14.5); WHITE BLOOD COUNT 9.6 K/uL (4.8-10.8)
[2017-07-07 06:37] LABS: POTASSIUM 3.5 mmol/L (3.6-5.2)
[2017-07-07 06:40] LABS: ALB/GLOB RATIO 0.7 (1.0-2.1); BILIRUBIN,TOTAL 0.9 mg/dL (0.2-1.3); CALCIUM 7.9 mg/dl (8.6-10.4); PHOSPHOROUS 4.4 mg/dL (2.5-4.5); TOTAL PROTEIN 6.2 g/dL (6.3-8.3)
[2017-07-07 06:41] LABS: MAGNESIUM 2.4 mg/dL (1.6-2.3)
--- NOTE | 2017-07-07 07:50 | CP.PCM.PN ---
Subjective - Date & Time of Evaluation Date of Evaluation: 07/07/17 Time of Evaluation: 09:00 - Subjective Subjective: patient remained intubated by bedside disussed drop in H/h- no gross bleeding -for further bleeding evaluation type and cross and transfusion discussed no unusual event Renal by bedside discussion Objective - Vital Signs/Intake and Output Vital Signs (last 24 hours): Temp Pulse Resp BP Pulse Ox 97.5 F L 69 16 125/66 100 07/07/17 04:00 07/07/17 06:00 07/07/17 06:00 07/07/17 04:48 07/07/17 06:00 Intake and Output: 07/07/17 07/07/17 06:59 18:59 Intake Total 524.4 Output Total 370 Balance 154.4 - Medications Medications: Current Medications Acetaminophen (Tylenol 650mg/20.3ml Solution Ud) 650 mg PO Q6 PRN PRN Reason: Fever 100.6 and above Last Admin: 07/06/17 11:58 Dose: 650 mg Aspirin (Ecotrin) 81 mg PO DAILY [facility] Last Admin: 07/06/17 09:33 Dose: 81 mg Famotidine (Pepcid) 20 mg IVP DAILY [facility] Last Admin: 07/06/17 09:33 Dose: 20 mg Furosemide (Lasix) 40 mg IVP Q12 [facility] Last Admin: 07/06/17 10:43 Dose: Not Given Heparin Sodium (Porcine) (Heparin) 5,000 units SC Q12 [facility] Last Admin: 07/06/17 21:56 Dose: 5,000 units Hydralazine HCl (Apresoline) 10 mg IVP Q6H [facility] Last Admin: 07/07/17 05:17 Dose: 10 mg Nitroglycerin/Dextrose (Nitroglycerin 50 Mg/250 Ml D5w) 50 mg in 250 mls @ 9 mls/hr IV .Q24H [facility]; 30 MCG/MIN PRN Reason: Protocol Last Admin: 07/06/17 15:23 Dose: Not Given Piperacillin Sod/Tazobactam Sod (Zosyn 2.25 Gm Iv Premix) 2.25 gm in 50 mls @ 100 mls/hr IVPB Q6H [facility] Last Admin: 07/07/17 05:17 Dose: 100 mls/hr Propofol (Diprivan) 1,000 mg in 100 mls @ 2.79 mls/hr IV .Q24H PRN; Protocol; 5 MCG/KG/MIN PRN Reason: TITRATE PER MD ORDER Last Admin: 07/06/17 23:47 Dose: 20 mcg/kg/min, 11.158 mls/hr Insulin Human Regular (Novolin R) 0 unit SC Q6H [facility] PRN Reason: Protocol Last Admin: 07/07/17 06:30 Dose: Not Given Losartan Potassium (Cozaar) 50 mg PO BID [facility] Last Admin: 07/06/17 09:34 Dose: 50 mg Metoprolol Tartrate (Lopressor) 25 mg PO BID [facility] Last Admin: 07/06/17 17:27 Dose: 25 mg Rosuvastatin Calcium (Crestor) 10 mg PO HS [facility] Last Admin: 07/06/17 21:57 Dose: 10 mg - Labs Labs: 07/07/17 06:20 07/07/17 06:20 PT 13.6 SECONDS (9.7-12.2) H 07/06/17 06:28 INR 1.2 07/06/17 06:28 APTT 33 SECONDS (21-34) D 07/06/17 06:28 - Constitutional Appears: Other (intubated sedated) - Head Exam Head Exam: ATRAUMATIC, NORMOCEPHALIC - Eye Exam Eye Exam: absent: Periorbital swelling - ENT Exam ENT Exam: Mucous Membranes Moist - Neck Exam Neck Exam: absent: Meningismus - Respiratory Exam Respiratory Exam: Decreased Breath Sounds, NORMAL BREATHING PATTERN. absent: Wheezes - Cardiovascular Exam Cardiovascular Exam: REGULAR RHYTHM - GI/Abdominal Exam GI & Abdominal Exam: Soft, Normal Bowel Sounds - Extremities Exam Extremities Exam: Pedal Edema (but is better than admission) - Neurological Exam Neurological Exam: Altered (due to sedation /intubation, episodes of communication with ) - Skin Skin Exam: Intact, Normal Color Assessment and Plan - Assessment and Plan (Free Text) Assessment: Patient with Pulmonary Edema,fluid overload ,CAD with respiratory distress- intubated elevated Troponins plan for further cardiac eval with dropp in H/H- on PPI, bleeding eval ongoing transfusion accordingly, discussed with Hypokalemia in the setting of CRI and patient will receive transfusion- check labs after
[2017-07-07 07:55] LABS: EOSINOPHIL 1 % (0-4); NEUTROPHIL 90 % (50-75); TOTAL CELLS COUNTED 100
[2017-07-07] MEDS: Propofol 10 mg/ml 1,000 MG/100 ML VIAL IV PRN ×4 (08:01→23:53)
--- NOTE | 2017-07-07 08:48 | RAD ---
Chest x-ray single frontal view History: Intubation. Comparison: 07/06/2017 Findings: Lines and tubes stable position. Moderate to severe venous congestion. Confluent airspace opacification in the mid to lower lung zones bilaterally with associated moderate bilateral pleural effusions. Cardiomegaly. Enlarged ectatic aorta. Status post median sternotomy and CABG. Degenerative changes in the spine and shoulders. Impression: Lines and tubes stable position. Moderate to severe venous congestion. Confluent airspace opacification in the mid to lower lung zones bilaterally with associated moderate bilateral pleural effusions. Cardiomegaly. Enlarged ectatic aorta. Status post median sternotomy and CABG.
--- NOTE | 2017-07-07 09:05 | CP.PCM.PN ---
Subjective - Date & Time of Evaluation Date of Evaluation: 07/07/17 Time of Evaluation: 09:03 - Subjective Subjective: pt is seen and examined, follow up consult is dictated #[id number] 1. Acute resp. alkalosis sec to hyperventilation 2. Jean Carlos on ckd 3. anemia 4. chf try to adjust vent settings, add epogen [id number] units sc tiw, check fe,tibc, ferritin level, consider gentle diuresis once vent setting is adjusted Objective - Vital Signs/Intake and Output Vital Signs (last 24 hours): Temp Pulse Resp BP Pulse Ox 97.5 F L 69 16 125/66 100 07/07/17 04:00 07/07/17 06:00 07/07/17 06:00 07/07/17 04:48 07/07/17 06:00 Intake and Output: 07/07/17 07/07/17 06:59 18:59 Intake Total 524.4 100 Output Total 370 Balance 154.4 100 - Medications Medications: Current Medications Acetaminophen (Tylenol 650mg/20.3ml Solution Ud) 650 mg PO Q6 PRN PRN Reason: Fever 100.6 and above Last Admin: 07/06/17 11:58 Dose: 650 mg Aspirin (Ecotrin) 81 mg PO DAILY [facility] Last Admin: 07/06/17 09:33 Dose: 81 mg Famotidine (Pepcid) 20 mg IVP DAILY [facility] Last Admin: 07/06/17 09:33 Dose: 20 mg Heparin Sodium (Porcine) (Heparin) 5,000 units SC Q12 [facility] Last Admin: 07/06/17 21:56 Dose: 5,000 units Hydralazine HCl (Apresoline) 10 mg IVP Q6H [facility] Last Admin: 07/07/17 05:17 Dose: 10 mg Nitroglycerin/Dextrose (Nitroglycerin 50 Mg/250 Ml D5w) 50 mg in 250 mls @ 9 mls/hr IV .Q24H [facility]; 30 MCG/MIN PRN Reason: Protocol Last Admin: 07/06/17 15:23 Dose: Not Given Piperacillin Sod/Tazobactam Sod (Zosyn 2.25 Gm Iv Premix) 2.25 gm in 50 mls @ 100 mls/hr IVPB Q6H [facility] Last Admin: 07/07/17 05:17 Dose: 100 mls/hr Propofol (Diprivan) 1,000 mg in 100 mls @ 2.79 mls/hr IV .Q24H PRN; Protocol; 5 MCG/KG/MIN PRN Reason: TITRATE PER MD ORDER Last Admin: 07/07/17 08:01 Dose: 20 mcg/kg/min, 11.158 mls/hr Potassium Chloride (Potassium Chloride 20 Meq/100 Ml) 20 meq in 100 mls @ 50 mls/hr IVPB ONCE ONE Stop: 07/07/17 11:00 Insulin Human Regular (Novolin R) 0 unit SC Q6H [facility] PRN Reason: Protocol Last Admin: 07/07/17 06:30 Dose: Not Given Losartan Potassium (Cozaar) 50 mg PO BID [facility] Last Admin: 07/06/17 09:34 Dose: 50 mg Metoprolol Tartrate (Lopressor) 25 mg PO BID [facility] Last Admin: 07/06/17 17:27 Dose: 25 mg Rosuvastatin Calcium (Crestor) 10 mg PO HS [facility] Last Admin: 07/06/17 21:57 Dose: 10 mg - Labs Labs: 07/07/17 06:20 07/07/17 06:20 PT 13.6 SECONDS (9.7-12.2) H 07/06/17 06:28 INR 1.2 07/06/17 06:28 APTT 33 SECONDS (21-34) D 07/06/17 06:28
[2017-07-07] MEDS ORDERED: Potassium Chloride 20 mEq ER Tab PO ONE (09:37)
[2017-07-07] MEDS ORDERED: Potassium Chloride 20 mEq/15 ml LIQ UD PO ONE (09:49)
[2017-07-07] MEDS: EPOETIN ALFA 10,000 UNIT/ML ML SC SCH (10:20)
[2017-07-07 10:40] LABS: CHLORIDE URINE 79 mmol/L (32-290)
[2017-07-07 11:43] LABS: ABG ALLEN TEST POS; ABG MECHANICAL RATE 12; ARTERIAL BLOOD GAS MODE PRVC; ARTERIAL BLOOD HGB O2 SAT 95.8 % (95.0-98.0); ATERIAL BLOOD GAS PEEP 5; CARBOXYHEMOGLOBIN 2.1 % (0.5-1.5); DRAW SITE RR; HHB 0.8 % (0.0-5.0); METHEMOGLOBIN 1.3 % (0.0-3.0)
[2017-07-07] MEDS: Multivitamin Vitamin B Complex (Nephro-Vite) Tab PO SCH (12:41)
--- NOTE | 2017-07-07 12:59 | PN ---
DATE: 07/07/2017 SUBJECTIVE: The patient is comfortably sleeping. The patient is intubated. VITAL SIGNS: 125/66, mean arterial pressure of 82, respiratory rate of 16, temperature afebrile with pulse rate of 69 and regular. The patient is sedated. On noxious stimuli, he shows appropriate movement. He moves all 4 extremities. Eyes are forcibly closed, did have significant blepharospasm. On forcibly opening d eyelid, rowing conjugate gaze noted. The patient has been presenting with hypoxic encephalopathy secondary to respiratory failure. The patient is under sedation. When medically stable, the patient definitely needs MRI of the brain which can be done after extubation. The patient will be followed closely with you. Please continue the current treatment. Arslan Carl MD [facility]
[2017-07-07 14:38] LABS: GAMMA GLOBULIN 13.8 Relative %
--- NOTE | 2017-07-07 15:06 | RAD ---
HISTORY: s/p triple lumen catheter venous access COMPARISON: Portable chest 07/07/2017 07:02 a.m.. FINDINGS: Endotracheal tube and nasogastric tube are unchanged in position in the interval. A right center venous lines in place by an apparent right internal jugular approach with the tip terminating at the superior vena cava. Sternotomy wires again evident. LUNGS: Limited medial basilar airspace disease is stable bilaterally. PLEURA: Trace right pleural effusions not excluded. No prominent left pleural effusion is evident however the left costophrenic sulcus is excluded from this exam. No pneumothorax bilaterally. CARDIOVASCULAR: Cardiomegaly appears stable. Significantly diminished pulmonary vascular congestion is noted. Aortic ectasis again evident. Rotation of the patient to the right limits evaluation of the mediastinal anatomy including the thoracic aorta. OSSEOUS STRUCTURES: No significant abnormalities. VISUALIZED UPPER ABDOMEN: Normal. OTHER FINDINGS: None. IMPRESSION: 1. Diminishing CHF pattern. 2. Persistent bilateral medial basilar airspace disease without significant interval change. Trace right pleural effusion question. None is clearly evident the left. 3. Interval right central venous line placement. No pneumothorax bilaterally.
--- NOTE | 2017-07-07 15:27 | CP.CCUPN ---
<Gwen Rodriguez E - Last Filed: 07/07/17 15:27> CCU Subjective - Physician Review Subjective (Free Text): Patient was seen and examined at bedside. Patient is currently intubated and on sedation. Patient is responsive to touch stimuli. Patient's was at bedside. Unable to evaluate adequate ROS due to patient's current clinical status. CCU Objective - Vital Signs / Intake & Output Vital Signs (Last 4 hours): Vital Signs Temp Pulse Resp BP Pulse Ox 07/07/17 15:00 69 18 100 07/07/17 14:48 74 16 129/81 100 07/07/17 13:48 79 13 130/72 100 07/07/17 12:48 72 20 132/70 100 07/07/17 12:28 77 16 119/78 100 07/07/17 12:00 99.1 F 78 15 100 07/07/17 11:49 79 19 122/89 98 Intake and Output (Last 8hrs): Intake & Output 07/07/17 07/07/17 07/07/17 06:59 14:59 22:59 Intake Total 349.6 527.6 36.8 Output Total 250 435 30 Balance 99.6 92.6 6.8 Intake: IV 100 200 Intake, IV Amount 89.6 167.6 16.8 Left hand # 2 89.6 167.6 16.8 right hand 0 Tube Feeding 160 160 20 Output: Urine 250 435 30 Urethral ([place]) 250 435 30 - Physical Exam Head: Positive for: Atraumatic, Normocephalic Conjunctiva: Positive for: Normal Mouth: Positive for: Moist Mucous Membranes Neck: Positive for: Normal Range of Motion Respiratory/Chest: Positive for: Good Air Exchange, Rales, Other (Currently intubated ). Negative for: Accessory Muscle Use Cardiovascular: Positive for: Regular Rate and Rhythm, Normal S1, S2 Abdomen: Positive for: Distention, Normal Bowel Sounds. Negative for: Tenderness Upper Extremity: Positive for: Normal Inspection Lower Extremity: Positive for: Swelling Neurological: Negative for: GCS=15, Speech Normal Skin: Positive for: Normal Color Psychiatric: Negative for: Alert, Oriented x 3 - Medications Active Medications: Active Medications Generic Name Dose Route Start Last Admin Trade Name Freq PRN Reason Stop Dose Admin Acetaminophen 650 mg 07/05/17 16:02 07/06/17 11:58 Tylenol 650mg/20.3ml Solution Ud PO 650 mg Q6 PRN Administration Fever 100.6 and above Aspirin 81 mg 07/07/17 10:00 07/07/17 10:16 Aspirin Chewable PO 81 mg DAILY RANDOLPH Administration Epoetin Pieter 10,000 unit 07/07/17 10:00 07/07/17 10:20 Procrit SC 10,000 unit TTS RANDOLPH Administration Famotidine 20 mg 07/03/17 11:00 07/07/17 10:17 Pepcid IVP 20 mg DAILY RANDOLPH Administration Heparin Sodium (Porcine) 5,000 units 07/05/17 22:00 07/07/17 10:16 Heparin SC 5,000 units Q12 RANDOLPH Administration Hydralazine HCl 10 mg 07/03/17 11:04 07/07/17 10:15 Apresoline IVP 10 mg Q6H RANDOLPH Administration Piperacillin Sod/Tazobactam Sod 2.25 gm in 50 mls @ 100 mls/hr 07/05/17 17:15 07/07/17 10:17 Zosyn 2.25 Gm Iv Premix IVPB 100 mls/hr Q6H RANDOLPH Administration Propofol 1,000 mg in 100 mls @ 2.79 mls/hr 07/06/17 16:13 07/07/17 12:43 Diprivan IV 30 mcg/kg/min .Q24H PRN 16.737 mls/hr TITRATE PER MD ORDER Titration Protocol 5 MCG/KG/MIN Insulin Human Regular 0 unit 07/05/17 18:00 07/07/17 12:41 Novolin R SC 1 unit Q6H RANDOLPH Administration Protocol Losartan Potassium 50 mg 07/05/17 10:00 07/06/17 09:34 Cozaar PO 50 mg BID RANDOLPH Administration Metoprolol Tartrate 25 mg 07/03/17 10:00 07/07/17 10:16 Lopressor PO 25 mg BID RANDOLPH Administration Rosuvastatin Calcium 10 mg 07/03/17 22:00 07/06/17 21:57 Crestor PO 10 mg HS RANDOLPH Administration Vitamin B Complex/Vit C/Folic Acid 1 tab 07/07/17 10:00 07/07/17 12:41 Nephro-Lc PO 1 tab 0800 RANDOLPH Administration - Patient Studies Lab Studies: Microbiology Studies 07/05/17 16:04 Urine Culture - Preliminary Urine,[place] Gram Positive Cocci 07/05/17 16:04 Gram Stain - Final Trachasp Sputum Culture - Final NORMAL ORAL RICK 07/02/17 23:00 Blood Culture - Preliminary Blood-Venous NO GROWTH AFTER 4 DAYS 07/02/17 22:45 Blood Culture - Preliminary Blood-Venous NO GROWTH AFTER 4 DAYS 07/05/17 16:00 Blood Culture - Preliminary Blood-Venous NO GROWTH AFTER 24 HOURS 07/05/17 15:45 Blood Culture - Preliminary Blood-Venous NO GROWTH AFTER 24 HOURS Lab Studies 07/07/17 07/07/17 07/07/17 Range/Units 11:40 11:21 06:20 WBC (4.8-10.8) K/uL RBC (4.40-5.90) Mil/uL Hgb (12.0-18.0) g/dL Hct (35.0-51.0) % MCV (80.0-94.0) fL MCH (27.0-31.0) pg MCHC (33.0-37.0) g/dL RDW (11.5-14.5) % Plt Count (130-400) K/uL MPV (7.2-11.7) fL Neut % (Auto) (50.0-75.0) % Lymph % (Auto) (20.0-40.0) % [place] % (Auto) (0.0-10.0) % Eos % (Auto) (0.0-4.0) % Baso % (Auto) (0.0-2.0) % Neut # (1.8-7.0) K/uL Lymph # (1.0-4.3) K/uL [place] # (0.0-0.8) K/uL Eos # (0.0-0.7) K/uL Baso # (0.0-0.2) K/uL Neutrophils % (Manual) (50-75) % Lymphocytes % (Manual) (20-40) % Monocytes % (Manual) (0-10) % Eosinophils % (Manual) (0-4) % Platelet Estimate (NORMAL) Polychromasia Hypochromasia (manual) Anisocytosis (manual) Puncture Site Rr pCO2 39 (35-45) mm/Hg pO2 184 H (80-100) mm/Hg HCO3 30.1 H (21-28) mmol/L ABG pH 7.50 H (7.35-7.45) ABG Total CO2 31.6 H (22-28) mmol/L ABG O2 Saturation 99.2 H (95-98) % ABG Base Excess 6.7 H (-2.0-3.0) mmol/L ABG Hemoglobin 10.4 L (11.7-17.4) g/dL ABG Carboxyhemoglobin 2.1 H (0.5-1.5) % POC ABG HHb (Measured) 0.8 (0.0-5.0) % ABG Methemoglobin 1.3 (0.0-3.0) % Luis Carlos Test Pos A-a O2 Difference 124.0 mm/Hg Respiratory Index 0.7 Hgb O2 Saturation 95.8 (95.0-98.0) % Vent Mode Prvc Mechanical Rate 12 FiO2 50.0 % Tidal Volume 450 PEEP 5 Crit Value Called To Crit Value Called By Crit Value Read Back Blood Gas Notified Time Sodium 135 (132-148) mmol/L Potassium 3.5 L (3.6-5.2) mmol/L Chloride 99 (98-107) mmol/L Carbon Dioxide 27 (22-30) mmol/L Anion Gap 13 (10-20) BUN 45 H (9-20) mg/dL Creatinine 2.6 H (0.8-1.5) mg/dL Est GFR ( Amer) 30 Est GFR (Non-Af Amer) 25 POC Glucose (mg/dL) 155 H (65-110) mg/dL Random Glucose 143 H (75-110) mg/dL Calcium 7.9 L (8.6-10.4) mg/dl Phosphorus 4.4 (2.5-4.5) mg/dL Magnesium 2.4 H (1.6-2.3) mg/dL Total Bilirubin 0.9 (0.2-1.3) mg/dL AST 16 L D (17-59) U/L ALT 27 (21-72) U/L Alkaline Phosphatase 87 (38-126) U/L Total Protein 6.2 L (6.3-8.3) g/dL Albumin 2.6 L (3.5-5.0) g/dL Globulin 3.6 (2.2-3.9) gm/dL Albumin/Globulin Ratio 0.7 L Ohgsz-3-Crzegpgjo Relative % Jkpki-1-Xpkhjlcdd Relative % Beta Globulins Relative % Gamma Globulins Relative % Ur Random Creatinine (20-370) mg/dL U Random Total Protein (22-128) mg/g creat Urine Chloride (32-290) mmol/L Urine Albumin (PEP) Relative % Ur Protein Fractions 07/07/17 07/07/17 07/07/17 Range/Units 06:20 05:55 05:29 WBC 9.6 (4.8-10.8) K/uL RBC 3.20 L (4.40-5.90) Mil/uL Hgb 8.8 L (12.0-18.0) g/dL Hct 27.5 L (35.0-51.0) % MCV 86.0 (80.0-94.0) fL MCH 27.6 (27.0-31.0) pg MCHC 32.1 L (33.0-37.0) g/dL RDW 18.7 H (11.5-14.5) % Plt Count 190 (130-400) K/uL MPV 8.6 (7.2-11.7) fL Neut % (Auto) 84.9 H (50.0-75.0) % Lymph % (Auto) 8.5 L (20.0-40.0) % [place] % (Auto) 5.0 (0.0-10.0) % Eos % (Auto) 1.4 (0.0-4.0) % Baso % (Auto) 0.2 (0.0-2.0) % Neut # 8.1 H (1.8-7.0) K/uL Lymph # 0.8 L (1.0-4.3) K/uL [place] # 0.5 (0.0-0.8) K/uL Eos # 0.1 (0.0-0.7) K/uL Baso # 0.0 (0.0-0.2) K/uL Neutrophils % (Manual) 90 H (50-75) % Lymphocytes % (Manual) 5 L (20-40) % Monocytes % (Manual) 4 (0-10) % Eosinophils % (Manual) 1 (0-4) % Platelet Estimate Normal (NORMAL) Polychromasia Slight Hypochromasia (manual) Slight Anisocytosis (manual) Slight Puncture Site R rad pCO2 19 L* (35-45) mm/Hg pO2 181 H (80-100) mm/Hg HCO3 20.3 L (21-28) mmol/L ABG pH 7.54 H (7.35-7.45) ABG Total CO2 16.8 L (22-28) mmol/L ABG O2 Saturation 99.6 H (95-98) % ABG Base Excess -6.0 L (-2.0-3.0) mmol/L ABG Hemoglobin 5.3 L (11.7-17.4) g/dL ABG Carboxyhemoglobin 2.1 H (0.5-1.5) % POC ABG HHb (Measured) 0.4 (0.0-5.0) % ABG Methemoglobin 1.2 (0.0-3.0) % Luis Carlos Test Pos A-a O2 Difference 152.0 mm/Hg Respiratory Index 0.8 Hgb O2 Saturation 96.3 (95.0-98.0) % Vent Mode Prvc Mechanical Rate 16 FiO2 50.0 % Tidal Volume 500 PEEP 5 Crit Value Called To Jacklyn mari agricultural research engineer Crit Value Called By Tiffanie benito rt Crit Value Read Back Y Blood Gas Notified Time 545 Sodium (132-148) mmol/L Potassium (3.6-5.2) mmol/L Chloride (98-107) mmol/L Carbon Dioxide (22-30) mmol/L Anion Gap (10-20) BUN (9-20) mg/dL Creatinine (0.8-1.5) mg/dL Est GFR ( Amer) Est GFR (Non-Af Amer) POC Glucose (mg/dL) 163 H (65-110) mg/dL Random Glucose (75-110) mg/dL Calcium (8.6-10.4) mg/dl Phosphorus (2.5-4.5) mg/dL Magnesium (1.6-2.3) mg/dL Total Bilirubin (0.2-1.3) mg/dL AST (17-59) U/L ALT (21-72) U/L Alkaline Phosphatase (38-126) U/L Total Protein (6.3-8.3) g/dL Albumin (3.5-5.0) g/dL Globulin (2.2-3.9) gm/dL Albumin/Globulin Ratio Vnszq-0-Aevpevmkj Relative % Ewero-4-Uyxmtrwjw Relative % Beta Globulins Relative % Gamma Globulins Relative % Ur Random Creatinine (20-370) mg/dL U Random Total Protein (22-128) mg/g creat Urine Chloride (32-290) mmol/L Urine Albumin (PEP) Relative % Ur Protein Fractions 07/07/17 07/06/17 07/05/17 Range/Units 00:09 17:57 06:26 WBC (4.8-10.8) K/uL RBC (4.40-5.90) Mil/uL Hgb (12.0-18.0) g/dL Hct (35.0-51.0) % MCV (80.0-94.0) fL MCH (27.0-31.0) pg MCHC (33.0-37.0) g/dL RDW (11.5-14.5) % Plt Count (130-400) K/uL MPV (7.2-11.7) fL Neut % (Auto) (50.0-75.0) % Lymph % (Auto) (20.0-40.0) % [place] % (Auto) (0.0-10.0) % Eos % (Auto) (0.0-4.0) % Baso % (Auto) (0.0-2.0) % Neut # (1.8-7.0) K/uL Lymph # (1.0-4.3) K/uL [place] # (0.0-0.8) K/uL Eos # (0.0-0.7) K/uL Baso # (0.0-0.2) K/uL Neutrophils % (Manual) (50-75) % Lymphocytes % (Manual) (20-40) % Monocytes % (Manual) (0-10) % Eosinophils % (Manual) (0-4) % Platelet Estimate (NORMAL) Polychromasia Hypochromasia (manual) Anisocytosis (manual) Puncture Site pCO2 (35-45) mm/Hg pO2 (80-100) mm/Hg HCO3 (21-28) mmol/L ABG pH (7.35-7.45) ABG Total CO2 (22-28) mmol/L ABG O2 Saturation (95-98) % ABG Base Excess (-2.0-3.0) mmol/L ABG Hemoglobin (11.7-17.4) g/dL ABG Carboxyhemoglobin (0.5-1.5) % POC ABG HHb (Measured) (0.0-5.0) % ABG Methemoglobin (0.0-3.0) % Luis Carlos Test A-a O2 Difference mm/Hg Respiratory Index Hgb O2 Saturation (95.0-98.0) % Vent Mode Mechanical Rate FiO2 % Tidal Volume PEEP Crit Value Called To Crit Value Called By Crit Value Read Back Blood Gas Notified Time Sodium (132-148) mmol/L Potassium (3.6-5.2) mmol/L Chloride (98-107) mmol/L Carbon Dioxide (22-30) mmol/L Anion Gap (10-20) BUN (9-20) mg/dL Creatinine (0.8-1.5) mg/dL Est GFR ( Amer) Est GFR (Non-Af Amer) POC Glucose (mg/dL) 137 H 153 H (65-110) mg/dL Random Glucose (75-110) mg/dL Calcium (8.6-10.4) mg/dl Phosphorus (2.5-4.5) mg/dL Magnesium (1.6-2.3) mg/dL Total Bilirubin (0.2-1.3) mg/dL AST (17-59) U/L ALT (21-72) U/L Alkaline Phosphatase (38-126) U/L Total Protein (6.3-8.3) g/dL Albumin (3.5-5.0) g/dL Globulin (2.2-3.9) gm/dL Albumin/Globulin Ratio 1.50 Hstfx-8-Atxrihrrt 6.4 Relative % Zipdv-4-Hkhjspdwb 7.1 Relative % Beta Globulins 12.7 Relative % Gamma Globulins 13.8 Relative % Ur Random Creatinine 66 (20-370) mg/dL U Random Total Protein 1641 H (22-128) mg/g creat Urine Chloride (32-290) mmol/L Urine Albumin (PEP) 60.1 Relative % Ur Protein Fractions See note 07/05/17 Range/Units 06:26 WBC (4.8-10.8) K/uL RBC (4.40-5.90) Mil/uL Hgb (12.0-18.0) g/dL Hct (35.0-51.0) % MCV (80.0-94.0) fL MCH (27.0-31.0) pg MCHC (33.0-37.0) g/dL RDW (11.5-14.5) % Plt Count (130-400) K/uL MPV (7.2-11.7) fL Neut % (Auto) (50.0-75.0) % Lymph % (Auto) (20.0-40.0) % [place] % (Auto) (0.0-10.0) % Eos % (Auto) (0.0-4.0) % Baso % (Auto) (0.0-2.0) % Neut # (1.8-7.0) K/uL Lymph # (1.0-4.3) K/uL [place] # (0.0-0.8) K/uL Eos # (0.0-0.7) K/uL Baso # (0.0-0.2) K/uL Neutrophils % (Manual) (50-75) % Lymphocytes % (Manual) (20-40) % Monocytes % (Manual) (0-10) % Eosinophils % (Manual) (0-4) % Platelet Estimate (NORMAL) Polychromasia Hypochromasia (manual) Anisocytosis (manual) Puncture Site pCO2 (35-45) mm/Hg pO2 (80-100) mm/Hg HCO3 (21-28) mmol/L ABG pH (7.35-7.45) ABG Total CO2 (22-28) mmol/L ABG O2 Saturation (95-98) % ABG Base Excess (-2.0-3.0) mmol/L ABG Hemoglobin (11.7-17.4) g/dL ABG Carboxyhemoglobin (0.5-1.5) % POC ABG HHb (Measured) (0.0-5.0) % ABG Methemoglobin (0.0-3.0) % Luis Carlos Test A-a O2 Difference mm/Hg Respiratory Index Hgb O2 Saturation (95.0-98.0) % Vent Mode Mechanical Rate FiO2 % Tidal Volume PEEP Crit Value Called To Crit Value Called By Crit Value Read Back Blood Gas Notified Time Sodium (132-148) mmol/L Potassium (3.6-5.2) mmol/L Chloride (98-107) mmol/L Carbon Dioxide (22-30) mmol/L Anion Gap (10-20) BUN (9-20) mg/dL Creatinine (0.8-1.5) mg/dL Est GFR ( Amer) Est GFR (Non-Af Amer) POC Glucose (mg/dL) (65-110) mg/dL Random Glucose (75-110) mg/dL Calcium (8.6-10.4) mg/dl Phosphorus (2.5-4.5) mg/dL Magnesium (1.6-2.3) mg/dL Total Bilirubin (0.2-1.3) mg/dL AST (17-59) U/L ALT (21-72) U/L Alkaline Phosphatase (38-126) U/L Total Protein (6.3-8.3) g/dL Albumin (3.5-5.0) g/dL Globulin (2.2-3.9) gm/dL Albumin/Globulin Ratio Gogpe-6-Yrqgzbmtm Relative % Bmakz-5-Qhtwywlkx Relative % Beta Globulins Relative % Gamma Globulins Relative % Ur Random Creatinine (20-370) mg/dL U Random Total Protein (22-128) mg/g creat Urine Chloride 79 (32-290) mmol/L Urine Albumin (PEP) Relative % Ur Protein Fractions Laboratory Results - last 24 hr 07/05/17 07/05/17 07/06/17 06:26 06:26 17:57 WBC RBC Hgb Hct MCV MCH MCHC RDW Plt Count MPV Neut % (Auto) Lymph % (Auto) [place] % (Auto) Eos % (Auto) Baso % (Auto) Neut # Lymph # [place] # Eos # Baso # Neutrophils % (Manual) Lymphocytes % (Manual) Monocytes % (Manual) Eosinophils % (Manual) Platelet Estimate Polychromasia Hypochromasia (manual) Anisocytosis (manual) Puncture Site pCO2 pO2 HCO3 ABG pH ABG Total CO2 ABG O2 Saturation ABG Base Excess ABG Hemoglobin ABG Carboxyhemoglobin POC ABG HHb (Measured) ABG Methemoglobin Luis Carlos Test A-a O2 Difference Respiratory Index Hgb O2 Saturation Vent Mode Mechanical Rate FiO2 Tidal Volume PEEP Crit Value Called To Crit Value Called By Crit Value Read Back Blood Gas Notified Time Sodium Potassium Chloride Carbon Dioxide Anion Gap BUN Creatinine Est GFR ( Amer) Est GFR (Non-Af Amer) POC Glucose (mg/dL) 153 H Random Glucose Calcium Phosphorus Magnesium Total Bilirubin AST ALT Alkaline Phosphatase Total Protein Albumin Globulin Albumin/Globulin Ratio 1.50 Fckhb-9-Oiwelqgsy 6.4 Xdbag-3-Tgjjzgcvf 7.1 Beta Globulins 12.7 Gamma Globulins 13.8 Ur Random Creatinine 66 U Random Total Protein 1641 H Urine Chloride 79 Urine Albumin (PEP) 60.1 Ur Protein Fractions See note 07/07/17 07/07/17 07/07/17 00:09 05:29 05:55 WBC RBC Hgb Hct MCV MCH MCHC RDW Plt Count MPV Neut % (Auto) Lymph % (Auto) [place] % (Auto) Eos % (Auto) Baso % (Auto) Neut # Lymph # [place] # Eos # Baso # Neutrophils % (Manual) Lymphocytes % (Manual) Monocytes % (Manual) Eosinophils % (Manual) Platelet Estimate Polychromasia Hypochromasia (manual) Anisocytosis (manual) Puncture Site R rad pCO2 19 L* pO2 181 H HCO3 20.3 L ABG pH 7.54 H ABG Total CO2 16.8 L ABG O2 Saturation 99.6 H ABG Base Excess -6.0 L ABG Hemoglobin 5.3 L ABG Carboxyhemoglobin 2.1 H POC ABG HHb (Measured) 0.4 ABG Methemoglobin 1.2 Luis Carlos Test Pos A-a O2 Difference 152.0 Respiratory Index 0.8 Hgb O2 Saturation 96.3 Vent Mode Prvc Mechanical Rate 16 FiO2 50.0 Tidal Volume 500 PEEP 5 Crit Value Called To Jacklyn mari agricultural research engineer Crit Value Called By Tiffanie benito rt Crit Value Read Back Y Blood Gas Notified Time 545 Sodium Potassium Chloride Carbon Dioxide Anion Gap BUN Creatinine Est GFR ( Amer) Est GFR (Non-Af Amer) POC Glucose (mg/dL) 137 H 163 H Random Glucose Calcium Phosphorus Magnesium Total Bilirubin AST ALT Alkaline Phosphatase Total Protein Albumin Globulin Albumin/Globulin Ratio Syqjy-9-Txbziwzfo Obndr-3-Ntvxklftt Beta Globulins Gamma Globulins Ur Random Creatinine U Random Total Protein Urine Chloride Urine Albumin (PEP) Ur Protein Fractions 07/07/17 07/07/17 07/07/17 06:20 06:20 11:21 WBC 9.6 RBC 3.20 L Hgb 8.8 L Hct 27.5 L MCV 86.0 MCH 27.6 MCHC 32.1 L RDW 18.7 H Plt Count 190 MPV 8.6 Neut % (Auto) 84.9 H Lymph % (Auto) 8.5 L [place] % (Auto) 5.0 Eos % (Auto) 1.4 Baso % (Auto) 0.2 Neut # 8.1 H Lymph # 0.8 L [place] # 0.5 Eos # 0.1 Baso # 0.0 Neutrophils % (Manual) 90 H Lymphocytes % (Manual) 5 L Monocytes % (Manual) 4 Eosinophils % (Manual) 1 Platelet Estimate Normal Polychromasia Slight Hypochromasia (manual) Slight Anisocytosis (manual) Slight Puncture Site pCO2 pO2 HCO3 ABG pH ABG Total CO2 ABG O2 Saturation ABG Base Excess ABG Hemoglobin ABG Carboxyhemoglobin POC ABG HHb (Measured) ABG Methemoglobin Luis Carlos Test A-a O2 Difference Respiratory Index Hgb O2 Saturation Vent Mode Mechanical Rate FiO2 Tidal Volume PEEP Crit Value Called To Crit Value Called By Crit Value Read Back Blood Gas Notified Time Sodium 135 Potassium 3.5 L Chloride 99 Carbon Dioxide 27 Anion Gap 13 BUN 45 H Creatinine 2.6 H Est GFR ( Amer) 30 Est GFR (Non-Af Amer) 25 POC Glucose (mg/dL) 155 H Random Glucose 143 H Calcium 7.9 L Phosphorus 4.4 Magnesium 2.4 H Total Bilirubin 0.9 AST 16 L D ALT 27 Alkaline Phosphatase 87 Total Protein 6.2 L Albumin 2.6 L Globulin 3.6 Albumin/Globulin Ratio 0.7 L Luybi-7-Ueebhkqgr Iihth-2-Yjyiesgiq Beta Globulins Gamma Globulins Ur Random Creatinine U Random Total Protein Urine Chloride Urine Albumin (PEP) Ur Protein Fractions 07/07/17 11:40 WBC RBC Hgb Hct MCV MCH MCHC RDW Plt Count MPV Neut % (Auto) Lymph % (Auto) [place] % (Auto) Eos % (Auto) Baso % (Auto) Neut # Lymph # [place] # Eos # Baso # Neutrophils % (Manual) Lymphocytes % (Manual) Monocytes % (Manual) Eosinophils % (Manual) Platelet Estimate Polychromasia Hypochromasia (manual) Anisocytosis (manual) Puncture Site Rr pCO2 39 pO2 184 H HCO3 30.1 H ABG pH 7.50 H ABG Total CO2 31.6 H ABG O2 Saturation 99.2 H ABG Base Excess 6.7 H ABG Hemoglobin 10.4 L ABG Carboxyhemoglobin 2.1 H POC ABG HHb (Measured) 0.8 ABG Methemoglobin 1.3 Luis Carlos Test Pos A-a O2 Difference 124.0 Respiratory Index 0.7 Hgb O2 Saturation 95.8 Vent Mode Prvc Mechanical Rate 12 FiO2 50.0 Tidal Volume 450 PEEP 5 Crit Value Called To Crit Value Called By Crit Value Read Back Blood Gas Notified Time Sodium Potassium Chloride Carbon Dioxide Anion Gap BUN Creatinine Est GFR ( Amer) Est GFR (Non-Af Amer) POC Glucose (mg/dL) Random Glucose Calcium Phosphorus Magnesium Total Bilirubin AST ALT Alkaline Phosphatase Total Protein Albumin Globulin Albumin/Globulin Ratio Jvoxi-3-Fqhvhpfwv Ndlcy-6-Ctmqmoopd Beta Globulins Gamma Globulins Ur Random Creatinine U Random Total Protein Urine Chloride Urine Albumin (PEP) Ur Protein Fractions Fingerstick Blood Sugar Results: 155 Critical Care Progress Note - Nutrition Nutrition: Nutrition Category Date Time Status NPO Diet [DIET] Diets 07/06/17 Breakfast Active <Atul Alves S - Last Filed: 07/07/17 18:31> CCU Objective - Vital Signs / Intake & Output Vital Signs (Last 4 hours): Vital Signs Temp Pulse Resp BP Pulse Ox 07/07/17 18:13 143/76 07/07/17 17:48 78 15 143/76 100 07/07/17 16:49 79 19 140/79 100 07/07/17 16:00 99.5 F 78 15 100 07/07/17 15:48 75 16 143/83 100 07/07/17 15:00 69 18 100 07/07/17 14:48 74 16 129/81 100 Intake and Output (Last 8hrs): Intake & Output 07/07/17 07/07/17 07/07/17 06:59 14:59 22:59 Intake Total 349.6 527.6 297.2 Output Total 250 435 195 Balance 99.6 92.6 102.2 Intake: IV 100 200 100 Intake, IV Amount 89.6 167.6 117.2 Left hand # 2 89.6 167.6 16.8 Right Distal Port 50.4 Internal Jugular Right Medial Port 50 Internal Jugular right hand 0 Tube Feeding 160 160 80 Output: Urine 250 435 195 Urethral ([place]) 250 435 195 - Medications Active Medications: Active Medications Generic Name Dose Route Start Last Admin Trade Name Freq PRN Reason Stop Dose Admin Acetaminophen 650 mg 07/05/17 16:02 07/06/17 11:58 Tylenol 650mg/20.3ml Solution Ud PO 650 mg Q6 PRN Administration Fever 100.6 and above Aspirin 81 mg 07/07/17 10:00 07/07/17 10:16 Aspirin Chewable PO 81 mg DAILY RANDOLPH Administration Epoetin Pieter 10,000 unit 07/07/17 10:00 07/07/17 10:20 Procrit SC 10,000 unit TTS RANDOLPH Administration Famotidine 20 mg 07/03/17 11:00 07/07/17 10:17 Pepcid IVP 20 mg DAILY RANDOLPH Administration Heparin Sodium (Porcine) 5,000 units 07/05/17 22:00 07/07/17 10:16 Heparin SC 5,000 units Q12 RANDOLPH Administration Hydralazine HCl 10 mg 07/03/17 11:04 07/07/17 18:12 Apresoline IVP 10 mg Q6H RANDOLPH Administration Piperacillin Sod/Tazobactam Sod 2.25 gm in 50 mls @ 100 mls/hr 07/05/17 17:15 07/07/17 18:14 Zosyn 2.25 Gm Iv Premix IVPB 100 mls/hr Q6H RANDOLPH Administration Propofol 1,000 mg in 100 mls @ 2.79 mls/hr 07/06/17 16:13 07/07/17 18:17 Diprivan IV 30 mcg/kg/min .Q24H PRN 16.737 mls/hr TITRATE PER MD ORDER Administration Protocol 5 MCG/KG/MIN Insulin Human Regular 0 unit 07/05/17 18:00 07/07/17 18:09 Novolin R SC Not Given Q6H RANDOLPH Protocol Losartan Potassium 50 mg 07/05/17 10:00 07/06/17 09:34 Cozaar PO 50 mg BID RANDOLPH Administration Metoprolol Tartrate 25 mg 07/03/17 10:00 07/07/17 18:13 Lopressor PO 25 mg BID RANDOLPH Administration Rosuvastatin Calcium 10 mg 07/03/17 22:00 07/06/17 21:57 Crestor PO 10 mg HS RANDOLPH Administration Vitamin B Complex/Vit C/Folic Acid 1 tab 07/07/17 10:00 07/07/17 12:41 Nephro-Lc PO 1 tab 0800 RANDOLPH Administration - Patient Studies Lab Studies: Microbiology Studies 07/05/17 16:00 Blood Culture - Preliminary Blood-Venous NO GROWTH AFTER 48 HOURS 07/05/17 15:45 Blood Culture - Preliminary Blood-Venous NO GROWTH AFTER 48 HOURS 07/05/17 16:04 Urine Culture - Preliminary Urine,[place] Gram Positive Cocci 07/05/17 16:04 Gram Stain - Final Trachasp Sputum Culture - Final NORMAL ORAL RICK 07/02/17 23:00 Blood Culture - Preliminary Blood-Venous NO GROWTH AFTER 4 DAYS 07/02/17 22:45 Blood Culture - Preliminary Blood-Venous NO GROWTH AFTER 4 DAYS Lab Studies 07/07/17 07/07/17 07/07/17 Range/Units 17:43 15:07 15:07 WBC (4.8-10.8) K/uL RBC (4.40-5.90) Mil/uL Hgb (12.0-18.0) g/dL Hct (35.0-51.0) % MCV (80.0-94.0) fL MCH (27.0-31.0) pg MCHC (33.0-37.0) g/dL RDW (11.5-14.5) % Plt Count (130-400) K/uL MPV (7.2-11.7) fL Neut % (Auto) (50.0-75.0) % Lymph % (Auto) (20.0-40.0) % [place] % (Auto) (0.0-10.0) % Eos % (Auto) (0.0-4.0) % Baso % (Auto) (0.0-2.0) % Neut # (1.8-7.0) K/uL Lymph # (1.0-4.3) K/uL [place] # (0.0-0.8) K/uL Eos # (0.0-0.7) K/uL Baso # (0.0-0.2) K/uL Neutrophils % (Manual) (50-75) % Lymphocytes % (Manual) (20-40) % Monocytes % (Manual) (0-10) % Eosinophils % (Manual) (0-4) % Platelet Estimate (NORMAL) Polychromasia Hypochromasia (manual) Anisocytosis (manual) Puncture Site pCO2 (35-45) mm/Hg pO2 (80-100) mm/Hg HCO3 (21-28) mmol/L ABG pH (7.35-7.45) ABG Total CO2 (22-28) mmol/L ABG O2 Saturation (95-98) % ABG Base Excess (-2.0-3.0) mmol/L ABG Hemoglobin (11.7-17.4) g/dL ABG Carboxyhemoglobin (0.5-1.5) % POC ABG HHb (Measured) (0.0-5.0) % ABG Methemoglobin (0.0-3.0) % [place] Test A-a O2 Difference mm/Hg Respiratory Index Hgb O2 Saturation (95.0-98.0) % Vent Mode Mechanical Rate FiO2 % Tidal Volume PEEP Crit Value Called To Crit Value Called By Crit Value Read Back Blood Gas Notified Time Sodium (132-148) mmol/L Potassium (3.6-5.2) mmol/L Chloride (98-107) mmol/L Carbon Dioxide (22-30) mmol/L Anion Gap (10-20) BUN (9-20) mg/dL Creatinine (0.8-1.5) mg/dL Est GFR ( Amer) Est GFR (Non-Af Amer) POC Glucose (mg/dL) 141 H (65-110) mg/dL Random Glucose (75-110) mg/dL Calcium (8.6-10.4) mg/dl Phosphorus (2.5-4.5) mg/dL Magnesium (1.6-2.3) mg/dL Iron (49-181) ug/dL TIBC (250-450) ug/dL % Saturation (20-55) Ferritin 368.0 ng/mL Total Bilirubin (0.2-1.3) mg/dL AST (17-59) U/L ALT (21-72) U/L Alkaline Phosphatase (38-126) U/L Total Protein (6.3-8.3) g/dL Albumin (3.5-5.0) g/dL Globulin (2.2-3.9) gm/dL Albumin/Globulin Ratio [id number] Relative % [id number] Relative % Beta Globulins Relative % Gamma Globulins Relative % Ur Random Creatinine (20-370) mg/dL U Random Total Protein (22-128) mg/g creat Urine Chloride (32-290) mmol/L Urine Albumin (PEP) Relative % Ur Protein Fractions Blood Type B POSITIVE Antibody Screen Negative 07/07/17 07/07/17 07/07/17 Range/Units 15:07 11:40 11:21 WBC (4.8-10.8) K/uL RBC (4.40-5.90) Mil/uL Hgb (12.0-18.0) g/dL Hct (35.0-51.0) % MCV (80.0-94.0) fL MCH (27.0-31.0) pg MCHC (33.0-37.0) g/dL RDW (11.5-14.5) % Plt Count (130-400) K/uL MPV (7.2-11.7) fL Neut % (Auto) (50.0-75.0) % Lymph % (Auto) (20.0-40.0) % [place] % (Auto) (0.0-10.0) % Eos % (Auto) (0.0-4.0) % Baso % (Auto) (0.0-2.0) % Neut # (1.8-7.0) K/uL Lymph # (1.0-4.3) K/uL [place] # (0.0-0.8) K/uL Eos # (0.0-0.7) K/uL Baso # (0.0-0.2) K/uL Neutrophils % (Manual) (50-75) % Lymphocytes % (Manual) (20-40) % Monocytes % (Manual) (0-10) % Eosinophils % (Manual) (0-4) % Platelet Estimate (NORMAL) Polychromasia Hypochromasia (manual) Anisocytosis (manual) Puncture Site Rr pCO2 39 (35-45) mm/Hg pO2 184 H (80-100) mm/Hg HCO3 30.1 H (21-28) mmol/L ABG pH 7.50 H (7.35-7.45) ABG Total CO2 31.6 H (22-28) mmol/L ABG O2 Saturation 99.2 H (95-98) % ABG Base Excess 6.7 H (-2.0-3.0) mmol/L ABG Hemoglobin 10.4 L (11.7-17.4) g/dL ABG Carboxyhemoglobin 2.1 H (0.5-1.5) % POC ABG HHb (Measured) 0.8 (0.0-5.0) % ABG Methemoglobin 1.3 (0.0-3.0) % Luis Carlos Test Pos A-a O2 Difference 124.0 mm/Hg Respiratory Index 0.7 Hgb O2 Saturation 95.8 (95.0-98.0) % Vent Mode Prvc Mechanical Rate 12 FiO2 50.0 % Tidal Volume 450 PEEP 5 Crit Value Called To Crit Value Called By Crit Value Read Back Blood Gas Notified Time Sodium (132-148) mmol/L Potassium (3.6-5.2) mmol/L Chloride (98-107) mmol/L Carbon Dioxide (22-30) mmol/L Anion Gap (10-20) BUN (9-20) mg/dL Creatinine (0.8-1.5) mg/dL Est GFR ( Amer) Est GFR (Non-Af Amer) POC Glucose (mg/dL) 155 H (65-110) mg/dL Random Glucose (75-110) mg/dL Calcium (8.6-10.4) mg/dl Phosphorus (2.5-4.5) mg/dL Magnesium (1.6-2.3) mg/dL Iron 12 L (49-181) ug/dL TIBC 208 L (250-450) ug/dL % Saturation 6 L (20-55) Ferritin ng/mL Total Bilirubin (0.2-1.3) mg/dL AST (17-59) U/L ALT (21-72) U/L Alkaline Phosphatase (38-126) U/L Total Protein (6.3-8.3) g/dL Albumin (3.5-5.0) g/dL Globulin (2.2-3.9) gm/dL Albumin/Globulin Ratio Hbgkk-4-Xkgffzgfx Relative % Pjczb-3-Zphsnicqv Relative % Beta Globulins Relative % Gamma Globulins Relative % Ur Random Creatinine (20-370) mg/dL U Random Total Protein (22-128) mg/g creat Urine Chloride (32-290) mmol/L Urine Albumin (PEP) Relative % Ur Protein Fractions Blood Type Antibody Screen 07/07/17 07/07/17 07/07/17 Range/Units 06:20 06:20 05:55 WBC 9.6 (4.8-10.8) K/uL RBC 3.20 L (4.40-5.90) Mil/uL Hgb 8.8 L (12.0-18.0) g/dL Hct 27.5 L (35.0-51.0) % MCV 86.0 (80.0-94.0) fL MCH 27.6 (27.0-31.0) pg MCHC 32.1 L (33.0-37.0) g/dL RDW 18.7 H (11.5-14.5) % Plt Count 190 (130-400) K/uL MPV 8.6 (7.2-11.7) fL Neut % (Auto) 84.9 H (50.0-75.0) % Lymph % (Auto) 8.5 L (20.0-40.0) % [place] % (Auto) 5.0 (0.0-10.0) % Eos % (Auto) 1.4 (0.0-4.0) % Baso % (Auto) 0.2 (0.0-2.0) % Neut # 8.1 H (1.8-7.0) K/uL Lymph # 0.8 L (1.0-4.3) K/uL [place] # 0.5 (0.0-0.8) K/uL Eos # 0.1 (0.0-0.7) K/uL Baso # 0.0 (0.0-0.2) K/uL Neutrophils % (Manual) 90 H (50-75) % Lymphocytes % (Manual) 5 L (20-40) % Monocytes % (Manual) 4 (0-10) % Eosinophils % (Manual) 1 (0-4) % Platelet Estimate Normal (NORMAL) Polychromasia Slight Hypochromasia (manual) Slight Anisocytosis (manual) Slight Puncture Site pCO2 (35-45) mm/Hg pO2 (80-100) mm/Hg HCO3 (21-28) mmol/L ABG pH (7.35-7.45) ABG Total CO2 (22-28) mmol/L ABG O2 Saturation (95-98) % ABG Base Excess (-2.0-3.0) mmol/L ABG Hemoglobin (11.7-17.4) g/dL ABG Carboxyhemoglobin (0.5-1.5) % POC ABG HHb (Measured) (0.0-5.0) % ABG Methemoglobin (0.0-3.0) % Luis Carlos Test A-a O2 Difference mm/Hg Respiratory Index Hgb O2 Saturation (95.0-98.0) % Vent Mode Mechanical Rate FiO2 % Tidal Volume PEEP Crit Value Called To Crit Value Called By Crit Value Read Back Blood Gas Notified Time Sodium 135 (132-148) mmol/L Potassium 3.5 L (3.6-5.2) mmol/L Chloride 99 (98-107) mmol/L Carbon Dioxide 27 (22-30) mmol/L Anion Gap 13 (10-20) BUN 45 H (9-20) mg/dL Creatinine 2.6 H (0.8-1.5) mg/dL Est GFR ( Amer) 30 Est GFR (Non-Af Amer) 25 POC Glucose (mg/dL) 163 H (65-110) mg/dL Random Glucose 143 H (75-110) mg/dL Calcium 7.9 L (8.6-10.4) mg/dl Phosphorus 4.4 (2.5-4.5) mg/dL Magnesium 2.4 H (1.6-2.3) mg/dL Iron (49-181) ug/dL TIBC (250-450) ug/dL % Saturation (20-55) Ferritin ng/mL Total Bilirubin 0.9 (0.2-1.3) mg/dL AST 16 L D (17-59) U/L ALT 27 (21-72) U/L Alkaline Phosphatase 87 (38-126) U/L Total Protein 6.2 L (6.3-8.3) g/dL Albumin 2.6 L (3.5-5.0) g/dL Globulin 3.6 (2.2-3.9) gm/dL Albumin/Globulin Ratio 0.7 L Kcvio-5-Ogdnymjev Relative % Drtgj-9-Veibtrvww Relative % Beta Globulins Relative % Gamma Globulins Relative % Ur Random Creatinine (20-370) mg/dL U Random Total Protein (22-128) mg/g creat Urine Chloride (32-290) mmol/L Urine Albumin (PEP) Relative % Ur Protein Fractions Blood Type Antibody Screen 07/07/17 07/07/17 07/05/17 Range/Units 05:29 00:09 06:26 WBC (4.8-10.8) K/uL RBC (4.40-5.90) Mil/uL Hgb (12.0-18.0) g/dL Hct (35.0-51.0) % MCV (80.0-94.0) fL MCH (27.0-31.0) pg MCHC (33.0-37.0) g/dL RDW (11.5-14.5) % Plt Count (130-400) K/uL MPV (7.2-11.7) fL Neut % (Auto) (50.0-75.0) % Lymph % (Auto) (20.0-40.0) % [place] % (Auto) (0.0-10.0) % Eos % (Auto) (0.0-4.0) % Baso % (Auto) (0.0-2.0) % Neut # (1.8-7.0) K/uL Lymph # (1.0-4.3) K/uL [place] # (0.0-0.8) K/uL Eos # (0.0-0.7) K/uL Baso # (0.0-0.2) K/uL Neutrophils % (Manual) (50-75) % Lymphocytes % (Manual) (20-40) % Monocytes % (Manual) (0-10) % Eosinophils % (Manual) (0-4) % Platelet Estimate (NORMAL) Polychromasia Hypochromasia (manual) Anisocytosis (manual) Puncture Site R rad pCO2 19 L* (35-45) mm/Hg pO2 181 H (80-100) mm/Hg HCO3 20.3 L (21-28) mmol/L ABG pH 7.54 H (7.35-7.45) ABG Total CO2 16.8 L (22-28) mmol/L ABG O2 Saturation 99.6 H (95-98) % ABG Base Excess -6.0 L (-2.0-3.0) mmol/L ABG Hemoglobin 5.3 L (11.7-17.4) g/dL ABG Carboxyhemoglobin 2.1 H (0.5-1.5) % POC ABG HHb (Measured) 0.4 (0.0-5.0) % ABG Methemoglobin 1.2 (0.0-3.0) % Luis Carlos Test Pos A-a O2 Difference 152.0 mm/Hg Respiratory Index 0.8 Hgb O2 Saturation 96.3 (95.0-98.0) % Vent Mode Prvc Mechanical Rate 16 FiO2 50.0 % Tidal Volume 500 PEEP 5 Crit Value Called To Jacklyn mari agricultural research engineer Crit Value Called By Tiffanie benito rt Crit Value Read Back Y Blood Gas Notified Time 545 Sodium (132-148) mmol/L Potassium (3.6-5.2) mmol/L Chloride (98-107) mmol/L Carbon Dioxide (22-30) mmol/L Anion Gap (10-20) BUN (9-20) mg/dL Creatinine (0.8-1.5) mg/dL Est GFR ( Amer) Est GFR (Non-Af Amer) POC Glucose (mg/dL) 137 H (65-110) mg/dL Random Glucose (75-110) mg/dL Calcium (8.6-10.4) mg/dl Phosphorus (2.5-4.5) mg/dL Magnesium (1.6-2.3) mg/dL Iron (49-181) ug/dL TIBC (250-450) ug/dL % Saturation (20-55) Ferritin ng/mL Total Bilirubin (0.2-1.3) mg/dL AST (17-59) U/L ALT (21-72) U/L Alkaline Phosphatase (38-126) U/L Total Protein (6.3-8.3) g/dL Albumin (3.5-5.0) g/dL Globulin (2.2-3.9) gm/dL Albumin/Globulin Ratio 1.50 Ixqap-0-Zkndvzyik 6.4 Relative % Labnm-3-Lyxpltzhc 7.1 Relative % Beta Globulins 12.7 Relative % Gamma Globulins 13.8 Relative % Ur Random Creatinine 66 (20-370) mg/dL U Random Total Protein 1641 H (22-128) mg/g creat Urine Chloride (32-290) mmol/L Urine Albumin (PEP) 60.1 Relative % Ur Protein Fractions See note Blood Type Antibody Screen 07/05/17 Range/Units 06:26 WBC (4.8-10.8) K/uL RBC (4.40-5.90) Mil/uL Hgb (12.0-18.0) g/dL Hct (35.0-51.0) % MCV (80.0-94.0) fL MCH (27.0-31.0) pg MCHC (33.0-37.0) g/dL RDW (11.5-14.5) % Plt Count (130-400) K/uL MPV (7.2-11.7) fL Neut % (Auto) (50.0-75.0) % Lymph % (Auto) (20.0-40.0) % [place] % (Auto) (0.0-10.0) % Eos % (Auto) (0.0-4.0) % Baso % (Auto) (0.0-2.0) % Neut # (1.8-7.0) K/uL Lymph # (1.0-4.3) K/uL [place] # (0.0-0.8) K/uL Eos # (0.0-0.7) K/uL Baso # (0.0-0.2) K/uL Neutrophils % (Manual) (50-75) % Lymphocytes % (Manual) (20-40) % Monocytes % (Manual) (0-10) % Eosinophils % (Manual) (0-4) % Platelet Estimate (NORMAL) Polychromasia Hypochromasia (manual) Anisocytosis (manual) Puncture Site pCO2 (35-45) mm/Hg pO2 (80-100) mm/Hg HCO3 (21-28) mmol/L ABG pH (7.35-7.45) ABG Total CO2 (22-28) mmol/L ABG O2 Saturation (95-98) % ABG Base Excess (-2.0-3.0) mmol/L ABG Hemoglobin (11.7-17.4) g/dL ABG Carboxyhemoglobin (0.5-1.5) % POC ABG HHb (Measured) (0.0-5.0) % ABG Methemoglobin (0.0-3.0) % Luis Carlos Test A-a O2 Difference mm/Hg Respiratory Index Hgb O2 Saturation (95.0-98.0) % Vent Mode Mechanical Rate FiO2 % Tidal Volume PEEP Crit Value Called To Crit Value Called By Crit Value Read Back Blood Gas Notified Time Sodium (132-148) mmol/L Potassium (3.6-5.2) mmol/L Chloride (98-107) mmol/L Carbon Dioxide (22-30) mmol/L Anion Gap (10-20) BUN (9-20) mg/dL Creatinine (0.8-1.5) mg/dL Est GFR ( Amer) Est GFR (Non-Af Amer) POC Glucose (mg/dL) (65-110) mg/dL Random Glucose (75-110) mg/dL Calcium (8.6-10.4) mg/dl Phosphorus (2.5-4.5) mg/dL Magnesium (1.6-2.3) mg/dL Iron (49-181) ug/dL TIBC (250-450) ug/dL % Saturation (20-55) Ferritin ng/mL Total Bilirubin (0.2-1.3) mg/dL AST (17-59) U/L ALT (21-72) U/L Alkaline Phosphatase (38-126) U/L Total Protein (6.3-8.3) g/dL Albumin (3.5-5.0) g/dL Globulin (2.2-3.9) gm/dL Albumin/Globulin Ratio Uixkj-1-Iobqyzuaw Relative % Gqzva-9-Ennfxqepc Relative % Beta Globulins Relative % Gamma Globulins Relative % Ur Random Creatinine (20-370) mg/dL U Random Total Protein (22-128) mg/g creat Urine Chloride 79 (32-290) mmol/L Urine Albumin (PEP) Relative % Ur Protein Fractions Blood Type Antibody Screen Laboratory Results - last 24 hr 07/05/17 07/05/17 07/07/17 06:26 06:26 00:09 WBC RBC Hgb Hct MCV MCH MCHC RDW Plt Count MPV Neut % (Auto) Lymph % (Auto) [place] % (Auto) Eos % (Auto) Baso % (Auto) Neut # Lymph # [place] # Eos # Baso # Neutrophils % (Manual) Lymphocytes % (Manual) Monocytes % (Manual) Eosinophils % (Manual) Platelet Estimate Polychromasia Hypochromasia (manual) Anisocytosis (manual) Puncture Site pCO2 pO2 HCO3 ABG pH ABG Total CO2 ABG O2 Saturation ABG Base Excess ABG Hemoglobin ABG Carboxyhemoglobin POC ABG HHb (Measured) ABG Methemoglobin Luis Carlos Test A-a O2 Difference Respiratory Index Hgb O2 Saturation Vent Mode Mechanical Rate FiO2 Tidal Volume PEEP Crit Value Called To Crit Value Called By Crit Value Read Back Blood Gas Notified Time Sodium Potassium Chloride Carbon Dioxide Anion Gap BUN Creatinine Est GFR ( Amer) Est GFR (Non-Af Amer) POC Glucose (mg/dL) 137 H Random Glucose Calcium Phosphorus Magnesium Iron TIBC % Saturation Ferritin Total Bilirubin AST ALT Alkaline Phosphatase Total Protein Albumin Globulin Albumin/Globulin Ratio 1.50 Snudh-6-Dtgsxeatr 6.4 Dkogu-4-Bxyzclnzb 7.1 Beta Globulins 12.7 Gamma Globulins 13.8 Ur Random Creatinine 66 U Random Total Protein 1641 H Urine Chloride 79 Urine Albumin (PEP) 60.1 Ur Protein Fractions See note Blood Type Antibody Screen 07/07/17 07/07/17 07/07/17 05:29 05:55 06:20 WBC 9.6 RBC 3.20 L Hgb 8.8 L Hct 27.5 L MCV 86.0 MCH 27.6 MCHC 32.1 L RDW 18.7 H Plt Count 190 MPV 8.6 Neut % (Auto) 84.9 H Lymph % (Auto) 8.5 L [place] % (Auto) 5.0 Eos % (Auto) 1.4 Baso % (Auto) 0.2 Neut # 8.1 H Lymph # 0.8 L [place] # 0.5 Eos # 0.1 Baso # 0.0 Neutrophils % (Manual) 90 H Lymphocytes % (Manual) 5 L Monocytes % (Manual) 4 Eosinophils % (Manual) 1 Platelet Estimate Normal Polychromasia Slight Hypochromasia (manual) Slight Anisocytosis (manual) Slight Puncture Site R rad pCO2 19 L* pO2 181 H HCO3 20.3 L ABG pH 7.54 H ABG Total CO2 16.8 L ABG O2 Saturation 99.6 H ABG Base Excess -6.0 L ABG Hemoglobin 5.3 L ABG Carboxyhemoglobin 2.1 H POC ABG HHb (Measured) 0.4 ABG Methemoglobin 1.2 Luis Carlos Test Pos A-a O2 Difference 152.0 Respiratory Index 0.8 Hgb O2 Saturation 96.3 Vent Mode Prvc Mechanical Rate 16 FiO2 50.0 Tidal Volume 500 PEEP 5 Crit Value Called To Jacklyn mari agricultural research engineer Crit Value Called By Tiffanie benito rt Crit Value Read Back Y Blood Gas Notified Time 545 Sodium Potassium Chloride Carbon Dioxide Anion Gap BUN Creatinine Est GFR ( Amer) Est GFR (Non-Af Amer) POC Glucose (mg/dL) 163 H Random Glucose Calcium Phosphorus Magnesium Iron TIBC % Saturation Ferritin Total Bilirubin AST ALT Alkaline Phosphatase Total Protein Albumin Globulin Albumin/Globulin Ratio Nnovn-9-Nreiazafy Jvtlh-1-Pupqnewyc Beta Globulins Gamma Globulins Ur Random Creatinine U Random Total Protein Urine Chloride Urine Albumin (PEP) Ur Protein Fractions Blood Type Antibody Screen 07/07/17 07/07/17 07/07/17 06:20 11:21 11:40 WBC RBC Hgb Hct MCV MCH MCHC RDW Plt Count MPV Neut % (Auto) Lymph % (Auto) [place] % (Auto) Eos % (Auto) Baso % (Auto) Neut # Lymph # [place] # Eos # Baso # Neutrophils % (Manual) Lymphocytes % (Manual) Monocytes % (Manual) Eosinophils % (Manual) Platelet Estimate Polychromasia Hypochromasia (manual) Anisocytosis (manual) Puncture Site Rr pCO2 39 pO2 184 H HCO3 30.1 H ABG pH 7.50 H ABG Total CO2 31.6 H ABG O2 Saturation 99.2 H ABG Base Excess 6.7 H ABG Hemoglobin 10.4 L ABG Carboxyhemoglobin 2.1 H POC ABG HHb (Measured) 0.8 ABG Methemoglobin 1.3 Luis Carlos Test Pos A-a O2 Difference 124.0 Respiratory Index 0.7 Hgb O2 Saturation 95.8 Vent Mode Prvc Mechanical Rate 12 FiO2 50.0 Tidal Volume 450 PEEP 5 Crit Value Called To Crit Value Called By Crit Value Read Back Blood Gas Notified Time Sodium 135 Potassium 3.5 L Chloride 99 Carbon Dioxide 27 Anion Gap 13 BUN 45 H Creatinine 2.6 H Est GFR ( Amer) 30 Est GFR (Non-Af Amer) 25 POC Glucose (mg/dL) 155 H Random Glucose 143 H Calcium 7.9 L Phosphorus 4.4 Magnesium 2.4 H Iron TIBC % Saturation Ferritin Total Bilirubin 0.9 AST 16 L D ALT 27 Alkaline Phosphatase 87 Total Protein 6.2 L Albumin 2.6 L Globulin 3.6 Albumin/Globulin Ratio 0.7 L Azjpw-2-Zarwpgsgn Zgvar-6-Yaaelyego Beta Globulins Gamma Globulins Ur Random Creatinine U Random Total Protein Urine Chloride Urine Albumin (PEP) Ur Protein Fractions Blood Type Antibody Screen 07/07/17 07/07/17 07/07/17 15:07 15:07 15:07 WBC RBC Hgb Hct MCV MCH MCHC RDW Plt Count MPV Neut % (Auto) Lymph % (Auto) [place] % (Auto) Eos % (Auto) Baso % (Auto) Neut # Lymph # [place] # Eos # Baso # Neutrophils % (Manual) Lymphocytes % (Manual) Monocytes % (Manual) Eosinophils % (Manual) Platelet Estimate Polychromasia Hypochromasia (manual) Anisocytosis (manual) Puncture Site pCO2 pO2 HCO3 ABG pH ABG Total CO2 ABG O2 Saturation ABG Base Excess ABG Hemoglobin ABG Carboxyhemoglobin POC ABG HHb (Measured) ABG Methemoglobin Luis Carlos Test A-a O2 Difference Respiratory Index Hgb O2 Saturation Vent Mode Mechanical Rate FiO2 Tidal Volume PEEP Crit Value Called To Crit Value Called By Crit Value Read Back Blood Gas Notified Time Sodium Potassium Chloride Carbon Dioxide Anion Gap BUN Creatinine Est GFR ( Amer) Est GFR (Non-Af Amer) POC Glucose (mg/dL) Random Glucose Calcium Phosphorus Magnesium Iron 12 L TIBC 208 L % Saturation 6 L Ferritin 368.0 Total Bilirubin AST ALT Alkaline Phosphatase Total Protein Albumin Globulin Albumin/Globulin Ratio Fyodi-1-Pxsrgonaj Lpwzz-7-Rqvmzmews Beta Globulins Gamma Globulins Ur Random Creatinine U Random Total Protein Urine Chloride Urine Albumin (PEP) Ur Protein Fractions Blood Type B POSITIVE Antibody Screen Negative 07/07/17 17:43 WBC RBC Hgb Hct MCV MCH MCHC RDW Plt Count MPV Neut % (Auto) Lymph % (Auto) [place] % (Auto) Eos % (Auto) Baso % (Auto) Neut # Lymph # [place] # Eos # Baso # Neutrophils % (Manual) Lymphocytes % (Manual) Monocytes % (Manual) Eosinophils % (Manual) Platelet Estimate Polychromasia Hypochromasia (manual) Anisocytosis (manual) Puncture Site pCO2 pO2 HCO3 ABG pH ABG Total CO2 ABG O2 Saturation ABG Base Excess ABG Hemoglobin ABG Carboxyhemoglobin POC ABG HHb (Measured) ABG Methemoglobin [place] Test A-a O2 Difference Respiratory Index Hgb O2 Saturation Vent Mode Mechanical Rate FiO2 Tidal Volume PEEP Crit Value Called To Crit Value Called By Crit Value Read Back Blood Gas Notified Time Sodium Potassium Chloride Carbon Dioxide Anion Gap BUN Creatinine Est GFR ( Amer) Est GFR (Non-Af Amer) POC Glucose (mg/dL) 141 H Random Glucose Calcium Phosphorus Magnesium Iron TIBC % Saturation Ferritin Total Bilirubin AST ALT Alkaline Phosphatase Total Protein Albumin Globulin Albumin/Globulin Ratio Jjkfv-5-Xuqwikfcb Nusap-4-Kgdztwvsy Beta Globulins Gamma Globulins Ur Random Creatinine U Random Total Protein Urine Chloride Urine Albumin (PEP) Ur Protein Fractions Blood Type Antibody Screen Critical Care Progress Note - Nutrition Nutrition: Nutrition Category Date Time Status NPO Diet [DIET] Diets 07/06/17 Breakfast Active Assessment/Plan (1) Hypercapnic respiratory failure, chronic Current Visit: Yes Status: Acute Comment: Hypercapnic respiratory failure secondary to CHF and obstructive sleep apnea Continue Lasix and BiPAP Started on heparin drip by cardiology for elevated troponins Discontinue IV fluid Follow-up ABG and chest x-ray (2) Elevated troponin Current Visit: Yes Status: Acute (3) Pulmonary edema Current Visit: Yes Status: Acute (4) Hypoglycemia Current Visit: Yes Status: Acute Attending/Attestation - Attestation I have personally seen and examined this patient.: Yes Notes (Text): 07/07/17 18:29 patient seen and examined in the intensive care unit. Case discussed with house staff in the morning. Patient remains intubated on ventilatory support and sedated on Diprivan FiO2 reduced to 50% saturation 100% On Lasix ABG consistent with respiratory alkalosis, vent changes made with improving ABG On antibiotics Seen by neurology Triple-lumen catheter inserted and right internal jugular vein under aseptic condition
--- NOTE | 2017-07-07 15:32 | VASCLAB ---
PROCEDURE: Lower Extremity Venous Duplex Exam. HISTORY: LE pain PRIORS: None. TECHNIQUE: Bilateral common femoral, femoral, popliteal and posterior tibial, peroneal and great saphenous veins were evaluated. Flow was assessed with color Doppler, compressibility, assessment of phasic flow and augmentation response. Report prepared by NORTH Banda, RVT FINDINGS: RIGHT: 1. Common Femoral Vein: 1.1. Compressibility - Fully compressible: Thrombus - None : Flow - Phasic: Augmentation -Normal: Reflux - None. 2. Femoral Vein: 2.1. Compressibility - Fully compressible: Thrombus - None : Flow - Phasic: Augmentation -Normal: Reflux - None. 3. Popliteal Vein: 3.1. Compressibility - Fully compressible: Thrombus - None : Flow - Phasic: Augmentation -Normal: Reflux - None. 4. Posterior Tibial Vein: 4.1. Compressibility - Fully compressible: Thrombus - None: Flow - Phasic: Augmentation -Normal: Reflux - None. 5. Peroneal Vein: 5.1. Compressibility - Fully compressible: Thrombus - None: Flow - Phasic: Augmentation -Normal: Reflux - None. 6. Great Saphenous Vein: 6.1. Compressibility - Fully compressible: Thrombus - None: Flow - Phasic: Augmentation - Normal: Reflux - None. LEFT: 1. Common Femoral Vein: 1.1. Compressibility - Fully compressible: Thrombus - None: Flow - Phasic: Augmentation -Normal: Reflux - None. 2. Femoral Vein: 2.1. Compressibility - Fully compressible: Thrombus - None: Flow - Phasic: Augmentation -Normal: Reflux - None. 3. Popliteal Vein: 3.1. Compressibility - Fully compressible: Thrombus - None : Flow - Phasic: Augmentation -Normal: Reflux - None. 4. Posterior Tibial Vein: 4.1. Compressibility - Fully compressible: Thrombus - None: Flow - Phasic: Augmentation -Normal: Reflux - None. 5. Peroneal Vein: 5.1. Compressibility - Fully compressible: Thrombus - None: Flow - Phasic: Augmentation -Normal: Reflux - None. 6. Great Saphenous Vein: 6.1. Compressibility - Fully compressible: Thrombus - None: Flow - Phasic: Augmentation - Normal: Reflux - None. OTHER FINDINGS: Right: None significant. Left: None significant. IMPRESSION: Right: No evidence of deep or superficial vein thrombosis of the right lower extremity. Normal valve function noted of the right side. Left: No evidence of deep or superficial vein thrombosis of the left lower extremity. Normal valve function noted of the left side.
[2017-07-07 15:39] LABS: IRON 12 ug/dL (49-181)
--- NOTE | 2017-07-07 19:13 | CARD ---
APPROVED REPORT EKG Measurement Heart [id number] <Conclusion> Sinus rhythm with premature atrial complexes Right bundle branch block Left anterior fascicular block Bifascicular block Abnormal ECG
--- NOTE | 2017-07-07 21:22 | CP.PCM.PN ---
Subjective - Date & Time of Evaluation Date of Evaluation: 07/07/17 Time of Evaluation: 16:10 - Subjective Subjective: Pt seen and examined in no acute distress. Patient on Mechanical ventilation Physical Examination - Constitutional Appears: Non-toxic, No Acute Distress - Head Exam Head Exam: ATRAUMATIC, NORMAL INSPECTION, NORMOCEPHALIC - Eye Exam Additional comments: PERRLA - ENT Exam ENT Exam: Mucous Membranes Moist - Neck Exam Neck Exam: Full ROM Additional comments: JVD - Respiratory Exam Respiratory Exam: NORMAL BREATHING PATTERN - Cardiovascular Exam Cardiovascular Exam: JVD, +S1, +S2 - GI/Abdominal Exam GI & Abdominal Exam: Soft, Normal Bowel Sounds - Extremities Exam Extremities Exam: Full ROM, Normal Capillary Refill. absent: Pedal Edema - Neurological Exam Neurological Exam: absent: Alert, Awake - Skin Skin Exam: Dry, Normal Color, Warm Objective - Vital Signs/Intake and Output Vital Signs (last 24 hours): Temp Pulse Resp BP Pulse Ox 99.5 F 72 16 137/76 100 07/07/17 20:00 07/07/17 20:00 07/07/17 20:00 07/07/17 19:48 07/07/17 20:00 Intake and Output: 07/07/17 07/08/17 18:59 06:59 Intake Total 824.8 73.6 Output Total 630 60 Balance 194.8 13.6 - Medications Medications: Current Medications Acetaminophen (Tylenol 650mg/20.3ml Solution Ud) 650 mg PO Q6 PRN PRN Reason: Fever 100.6 and above Last Admin: 07/06/17 11:58 Dose: 650 mg Aspirin (Aspirin Chewable) 81 mg PO DAILY [facility] Last Admin: 07/07/17 10:16 Dose: 81 mg Epoetin Pieter (Procrit) 10,000 unit SC TTS [facility] Last Admin: 07/07/17 10:20 Dose: 10,000 unit Famotidine (Pepcid) 20 mg IVP DAILY [facility] Last Admin: 07/07/17 10:17 Dose: 20 mg Heparin Sodium (Porcine) (Heparin) 5,000 units SC Q12 [facility] Last Admin: 07/07/17 10:16 Dose: 5,000 units Hydralazine HCl (Apresoline) 10 mg IVP Q6H [facility] Last Admin: 07/07/17 18:12 Dose: 10 mg Piperacillin Sod/Tazobactam Sod (Zosyn 2.25 Gm Iv Premix) 2.25 gm in 50 mls @ 100 mls/hr IVPB Q6H [facility] Last Admin: 07/07/17 18:14 Dose: 100 mls/hr Propofol (Diprivan) 1,000 mg in 100 mls @ 2.79 mls/hr IV .Q24H PRN; Protocol; 5 MCG/KG/MIN PRN Reason: TITRATE PER MD ORDER Last Admin: 07/07/17 18:17 Dose: 30 mcg/kg/min, 16.737 mls/hr Insulin Human Regular (Novolin R) 0 unit SC Q6H [facility] PRN Reason: Protocol Last Admin: 07/07/17 18:09 Dose: Not Given Losartan Potassium (Cozaar) 50 mg PO BID [facility] Last Admin: 07/06/17 09:34 Dose: 50 mg Metoprolol Tartrate (Lopressor) 25 mg PO BID [facility] Last Admin: 07/07/17 18:13 Dose: 25 mg Rosuvastatin Calcium (Crestor) 10 mg PO HS [facility] Last Admin: 07/06/17 21:57 Dose: 10 mg Vitamin B Complex/Vit C/Folic Acid (Nephro-Lc) 1 tab PO 0800 [facility] Last Admin: 07/07/17 12:41 Dose: 1 tab - Labs Labs: 07/07/17 06:20 07/07/17 06:20 PT 13.6 SECONDS (9.7-12.2) H 07/06/17 06:28 INR 1.2 07/06/17 06:28 APTT 33 SECONDS (21-34) D 07/06/17 06:28 Assessment and Plan - Assessment and Plan (Free Text) Assessment: Elevated Troponin Assessment and Plan: Mildly elevated but trending down: May be secondarily due to ischemic changes but may also be due to CHF exacerbation as well No ST segment changes appreciated on EKG 07/06 Cont to monitor Status: Acute CHF exacerbation Assessment and Plan: S/P intubation due to resp distress on 07/05 On IV Lasix 40 IV Q12 ECHO: EF 65%, mild calcified thickening of aortic valve. Refer to complete report Status: Acute Hypertension Assessment and Plan: On Metoprolol, Cozaar and Hydralazine Elevated overnight. Cont to monitor. Avoid IVF Status: Chronic History of coronary artery bypass graft Assessment and Plan: Crestor 10 mg PO HS On Metoprolol BID, ASA daily. Stop Plavix Would like Neuro clearance before before cardiac cath is performed. Status: Chronic History of diabetes mellitus Assessment and Plan: Accuchecks Sliding scale Hold Parameters in place A1c 6.8 Status: Chronic History of TIA (transient ischemic attack) Assessment and Plan: 07/[address]- Intracranial arterial calcifications; stable chronic infarcts noted. Refer to full report. Would benefit from MRI of brain. EEG reviewed by Neuro- Slow wave activity noted w/o paroxysmal activity or focal slowing Neuro on the case Cont to monitor Status: Acute Hypercholesterolemia Assessment and Plan: On Crestor Would benefit from diet and exercise modifications following current hospital course Status: Chronic Family history of cerebral aneurysm Assessment and Plan: Strong family history. Patient's counseled on the importance of imaging for children to rule out aneurysms. Head CT did not appear to show signs of aneurysmal disease. Neuro on case for AMS Status: Acute Prophylactic measure Assessment and Plan: SCDs contraindicated due to swelling Heparin SC Q12 Pepcid 20 mg IV daily
[2017-07-07] MEDS: Ferric Sodium Gluconat Complex 62.5 mg/5 ml Vial IVPB SCH (23:52)
[2017-07-08 04:15] LABS: ABG MECHANICAL RATE 12; ARTERIAL BLOOD GAS MODE PRVC; ARTERIAL BLOOD HGB O2 SAT 96.9 % (95.0-98.0); ATERIAL BLOOD GAS PEEP 5; CARBOXYHEMOGLOBIN 1.8 % (0.5-1.5); DRAW SITE RBA; HHB 0.4 % (0.0-5.0); METHEMOGLOBIN 0.9 % (0.0-3.0)
[2017-07-08] MEDS: Piperacill/Tazo 2.25gm in Dex 2.25 GM/50 ML BAG IVPB SCH ×4 (04:52→22:40)
[2017-07-08] MEDS: (Novolin R) Insulin Human Regular 100 units/ml vial SC SCH ×3 (06:09→18:15)
[2017-07-08 06:23] LABS: BASO % 0.6 % (0.0-2.0); EOS # 0.2 K/uL (0.0-0.7); EOS % 3.3 % (0.0-4.0); HEMATOCRIT 28.7 % (35.0-51.0); LYMPH # 0.8 K/uL (1.0-4.3); LYMPH % 11.3 % (20.0-40.0); MEAN CELL VOLUME 87.7 fL (80.0-94.0); MEAN CORPUSCULAR HEMOGLOBIN 27.2 pg (27.0-31.0); MEAN PLATELET VOLUME 8.7 fL (7.2-11.7); MONO # 0.4 K/uL (0.0-0.8); MONO % 5.6 % (0.0-10.0); RED CELL DISTRIBUTION WIDTH 18.7 % (11.5-14.5); WHITE BLOOD COUNT 7.2 K/uL (4.8-10.8)
[2017-07-08 06:41] LABS: POTASSIUM 3.8 mmol/L (3.6-5.2)
[2017-07-08 06:43] LABS: ALB/GLOB RATIO 0.7 (1.0-2.1); BILIRUBIN,TOTAL 0.7 mg/dL (0.2-1.3); TOTAL PROTEIN 6.6 g/dL (6.3-8.3)
[2017-07-08 06:44] LABS: CALCIUM 8.2 mg/dl (8.6-10.4); MAGNESIUM 2.9 mg/dL (1.6-2.3); PHOSPHOROUS 5.8 mg/dL (2.5-4.5)
--- NOTE | 2017-07-08 07:44 | RAD ---
HISTORY: Intubation COMPARISON: Frontal chest radiograph 07/07/2017. FINDINGS: Endotracheal tube is unchanged in position as well as right central venous line and nasogastric tube. Sternotomy wires are again identified. LUNGS: Medial basilar airspace disease is stable bilaterally head remain somewhat more prominent the left and right sides. PLEURA: No significant pleural effusion identified, no pneumothorax apparent. CARDIOVASCULAR: Cardiomegaly stable with a mild increase in pulmonary vascular congestion. OSSEOUS STRUCTURES: No significant abnormalities. VISUALIZED UPPER ABDOMEN: Normal. OTHER FINDINGS: None. IMPRESSION: Mild worsening in pulmonary vascular congestion. Medial bibasilar airspace disease is unchanged remaining greater the left and right sides.
--- NOTE | 2017-07-08 08:34 | PN ---
DATE: 07/08/2017 NEUROLOGICAL PROBLEM: Metabolic encephalopathy, status post respiratory failure. PHYSICAL EXAMINATION: VITAL SIGNS: Blood pressure 123/71, mean arterial pressure of 86, respiratory rate 18 on vent, and pulse rate 80 and regular. NEUROLOGICAL EXAMINATION: The patient is examined in the presence of his . The patient is sedated. Not arousable calling his name. Response appropriately to noxious stimuli on either side. He moves all four extremities on noxious stimuli. On forcibly opening the eyelids, pupils reactive to light, rolling conjugate gaze noted. Good corneal reflex. The patient is neurologically stable. Continue present management. Arslan Carl MD
--- NOTE | 2017-07-08 08:38 | CON ---
RENAL CONSULTATION DATE: LOCATION: The patient is located in ICU, bed 18 in [facility] REQUESTED BY: Paola Adams MD SUBJECTIVE: Mr. Flowers is a 67-year-old elderly obese [place]ian male with a past medical history significant for long-standing hypertension, diabetes, hyperlipidemia, chronic kidney disease, proteinuria, CABG, and questionable aneurysm intracranial, who was admitted with chief complaints of weight gain about 20 to 25 pounds in the last few weeks and shortness of breath and hypoglycemia. After taking excess amount of insulin in the house, the patient was having respiratory difficulty on Thursday, and the patient was intubated, now the patient is on ventilator. The patient is under sedation, arousable, not in distress. PHYSICAL EXAMINATION: His vital signs and physical exam this morning as follows; VITAL SIGNS: Blood pressure 138/76, pulse 60, respirations 16, temperature 98.7, saturations 100%, height 5 feet 6 inches, and weight is 205 pounds. GENERAL: Mr. Flowers is a 67-year-old elderly [place] male, well-built, well-nourished, on ventilator, under sedation. HEENT: Pupils are normally reactive to light and accommodation. Conjunctivae are pink. Sclerae are anicteric. Trachea is midline. No thyroid enlargement. LUNGS: Symmetric on both sides. Bilateral breath sounds present. Bilateral basal crackles present. CARDIOVASCULAR: [place] at the fifth intercostal space, midclavicular line, S1 and S2 audible. No murmur. No gallop. The patient has a midsternal scar present from the previous CABG. ABDOMEN: Slightly protuberant. Soft and tympanic. No guarding, no rigidity, and no hepatosplenomegaly. PROJECT CONTROLLER: The patient is on ventilator under sedation. Moving all extremities. Sensory and motor system is grossly within normal limits, able to move all the extremities with painful stimuli. EXTREMITIES: No cyanosis. No clubbing. The patient has 1 to 2+ edema in both lower extremities. CURRENT MEDICATIONS: Include as follows; hydralazine 10 mg IV q. 6 hours p.r.n., aspirin 81 mg daily, Cozaar 50 mg b.i.d., Crestor 10 mg at bedtime, propofol, heparin 5000 units subcutaneous q. 12 hours, metoprolol 25 mg p.o. b.i.d., Nephro-Lc one tablet daily, NovoLog on sliding scale, Pepcid 20 mg IV daily, Procrit 10,000 units three times a week subcutaneous, Tylenol, and Zosyn 2.25 g IV q. 6 hours. LABORATORY DATA: Includes as follows; as of 07/07/2017, WBC 9.6, hemoglobin 8.8, hematocrit is 27.5, and platelets 190. ABG: pH 7.54, pCO2 of 19, pO2 of 181, bicarbonate is 20.3, and saturation 99.6. Ventilator settings, AC 16, tidal volume 500, FiO2 of 50%, PEEP of 5. Chem 7: Sodium 135, potassium 3.5, chloride 99, CO2 of 27, BUN 45, creatinine 2.6 and glucose 123. Calcium 7.9, phosphorus 4.4, and magnesium 2.4, total bilirubin 0.9, AST 16, ALT 29, and alkaline phosphatase 87. Iron is 12, TIBC 208, saturation is 6%, and serum ferritin is 368. Chest x-ray as of 07/07/2017; impression, diminishing CHF pattern, persistent bilateral medial basilar airspace disease without significant interval change, trace right pleural effusion question, none is clearly evident on the left, interval right central venous line placement, no pneumothorax bilaterally. ASSESSMENT AND PLAN: In summary, Mr. Flowers is a 67-year-old obese elderly [place]ian male with a history of hypertension, diabetes, proteinuria, coronary artery disease status post coronary artery bypass graft. Negative serology, hepatitis B and C, and RPR, JOSY 1:40 homogenous and the complement levels are normal, C3, C4. A 24-hour urine protein about 2.5 grams and the creatinine clearance about 52 mL on admission 07/05/2017 with the serum creatinine 1.6. 1. [id number] kidney disease, most likely secondary to vigorous diuresis. 2. Proteinuria, most likely secondary to diabetic nephropathy. 3. Congestive heart failure. 4. Pneumonia. 5. Acute respiratory failure. 6. Anemia secondary to chronic kidney disease and gastrointestinal bleed and also iron-deficiency anemia. We will continue Procrit and Nephrocaps, and also we will add Venofer and Ferrlecit daily times total 1 gram in multiple doses. 7. Acute respiratory alkalosis secondary to hyperventilation. Case discussed with Dr. Mathias, who is planning to adjust the vent settings as per the ABG. We will follow with you. Thank you for allowing me to participate in your patient's care, and also case discussed with Dr. Paola Adams in rounds this morning at the patient's bedside. Susana Jones MD MTDColleen
[2017-07-08] MEDS: Ferric Sodium Gluconat Complex 62.5 mg/5 ml Vial IVPB SCH (09:28)
[2017-07-08] MEDS: Multivitamin Vitamin B Complex (Nephro-Vite) Tab PO SCH (09:29)
--- NOTE | 2017-07-08 11:42 | CP.PCM.PN ---
<Maurilio Lr - Last Filed: 07/08/17 17:39> Subjective - Date & Time of Evaluation Date of Evaluation: 07/08/17 Time of Evaluation: 10:02 - Subjective Subjective: Cardiology Progress Note- Dr. Butler's service Pt seen and examined in no acute distress. Patient is intubated but off sedation. He is able to shake his head no denying chest pain, palpitations, headaches at this time. Objective - Vital Signs/Intake and Output Vital Signs (last 24 hours): Temp Pulse Resp BP Pulse Ox 98.6 F 77 19 136/80 100 07/08/17 08:00 07/08/17 11:00 07/08/17 04:00 07/08/17 10:48 07/08/17 11:00 Intake and Output: 07/08/17 07/08/17 06:59 18:59 Intake Total 784.8 40 Output Total 550 170 Balance 234.8 -130 - Medications Medications: Current Medications Acetaminophen (Tylenol 650mg/20.3ml Solution Ud) 650 mg PO Q6 PRN PRN Reason: Fever 100.6 and above Last Admin: 07/06/17 11:58 Dose: 650 mg Aspirin (Aspirin Chewable) 81 mg PO DAILY [facility] Last Admin: 07/08/17 09:27 Dose: 81 mg Epoetin Pieter (Procrit) 10,000 unit SC TTS [facility] Last Admin: 07/07/17 10:20 Dose: 10,000 unit Famotidine (Pepcid) 20 mg IVP DAILY [facility] Last Admin: 07/08/17 09:29 Dose: 20 mg Ferric Sodium Gluconate Complex (Ferrlecit) 125 mg IVPB DAILY [facility] Stop: 07/15/17 23:21 Last Admin: 07/08/17 09:28 Dose: 125 mg Heparin Sodium (Porcine) (Heparin) 5,000 units SC Q12 [facility] Last Admin: 07/08/17 09:28 Dose: 5,000 units Hydralazine HCl (Apresoline) 10 mg IVP Q6H [facility] Last Admin: 07/08/17 10:35 Dose: 10 mg Piperacillin Sod/Tazobactam Sod (Zosyn 2.25 Gm Iv Premix) 2.25 gm in 50 mls @ 100 mls/hr IVPB Q6H [facility] Last Admin: 07/08/17 10:34 Dose: 100 mls/hr Propofol (Diprivan) 1,000 mg in 100 mls @ 2.79 mls/hr IV .Q24H PRN; Protocol; 5 MCG/KG/MIN PRN Reason: TITRATE PER MD ORDER Last Titration: 07/08/17 01:00 Dose: 20 mcg/kg/min, 11.158 mls/hr Insulin Human Regular (Novolin R) 0 unit SC Q6H [facility] PRN Reason: Protocol Last Admin: 07/08/17 06:09 Dose: Not Given Losartan Potassium (Cozaar) 50 mg PO BID [facility] Last Admin: 07/06/17 09:34 Dose: 50 mg Metoprolol Tartrate (Lopressor) 25 mg PO BID [facility] Last Admin: 07/08/17 09:28 Dose: 25 mg Rosuvastatin Calcium (Crestor) 10 mg PO HS [facility] Last Admin: 07/07/17 22:48 Dose: 10 mg Vitamin B Complex/Vit C/Folic Acid (Nephro-Lc) 1 tab PO 0800 [facility] Last Admin: 07/08/17 09:29 Dose: 1 tab - Labs Labs: 07/08/17 06:14 07/08/17 06:14 PT 13.6 SECONDS (9.7-12.2) H 07/06/17 06:28 INR 1.2 07/06/17 06:28 APTT 33 SECONDS (21-34) D 07/06/17 06:28 - Constitutional Appears: Non-toxic, No Acute Distress, Other (large body habitus) - Head Exam Head Exam: ATRAUMATIC, NORMAL INSPECTION - Eye Exam Eye Exam: EOMI, Normal appearance, PERRL - ENT Exam ENT Exam: Mucous Membranes Moist - Neck Exam Neck Exam: Full ROM - Respiratory Exam Respiratory Exam: NORMAL BREATHING PATTERN. absent: Wheezes - Cardiovascular Exam Cardiovascular Exam: +S1, +S2 - GI/Abdominal Exam GI & Abdominal Exam: Soft, Normal Bowel Sounds - Extremities Exam Extremities Exam: Full ROM. absent: Pedal Edema - Back Exam Back Exam: Full ROM - Neurological Exam Neurological Exam: Alert, Awake - Psychiatric Exam Psychiatric exam: Normal Affect, Normal Mood - Skin Skin Exam: Dry, Normal Color, Warm Assessment and Plan (1) CHF exacerbation Status: Acute (2) Hypertension Status: Chronic (3) History of coronary artery bypass graft Status: Chronic (4) Hypoglycemia Status: Acute (5) History of diabetes mellitus Status: Chronic (6) History of TIA (transient ischemic attack) Status: Acute (7) Hypercholesteremia Status: Chronic (8) Family history of cerebral aneurysm Status: Acute (9) Prophylactic measure Status: Acute - Assessment and Plan (Free Text) Assessment: Elevated Troponin Assessment and Plan: Mildly elevated but later trended down: It could have been due to ischemic changes but may also be due to CHF exacerbation as well No ST segment changes appreciated on EKG 07/06 Cont to monitor Status: Acute CHF exacerbation Assessment and Plan: S/P intubation due to resp distress on 07/05. Will likely be extubated soon. On IV Lasix 40 IV Q12 ECHO: EF 65%, mild calcified thickening of aortic valve. Refer to complete report Status: Acute Hypertension Assessment and Plan: On Metoprolol, Cozaar and Hydralazine Elevated overnight. Cont to monitor. Avoid IVF Status: Chronic History of coronary artery bypass graft Assessment and Plan: Crestor 10 mg PO HS On Metoprolol BID, ASA daily. Would like Neuro clearance before cardiac cath is performed. Patient would benefit from MRI/MRA to visualize cerebral vasculature. Status: Chronic History of diabetes mellitus Assessment and Plan: Accuchecks Sliding scale Hold Parameters in place A1c 6.8 Status: Chronic History of TIA (transient ischemic attack) Assessment and Plan: 07/[address]- Intracranial arterial calcifications; stable chronic infarcts noted. Refer to full report. Would benefit from MRI of brain. EEG reviewed by Neuro- Slow wave activity noted w/o paroxysmal activity or focal slowing Neuro on the case. See above. Cont to monitor Status: Acute Hypercholesterolemia Assessment and Plan: On Crestor Would benefit from diet and exercise modifications following current hospital course Status: Chronic Family history of cerebral aneurysm Assessment and Plan: Strong family history. Patient's counseled on the importance of imaging for children to rule out aneurysms. Head CT did not appear to show signs of aneurysmal disease. Neuro on case for AMS Status: Acute Prophylactic measure Assessment and Plan: SCDs contraindicated due to swelling Heparin SC Q12 Pepcid 20 mg IV daily Status: Acute Discussed with attending. Management and Planning per Dr. Butler. <Corey Butler - Last Filed: 07/08/17 20:19> Objective - Vital Signs/Intake and Output Vital Signs (last 24 hours): Temp Pulse Resp BP Pulse Ox 98.7 F 88 23 161/96 H 88 L 07/08/17 20:00 07/08/17 20:00 07/08/17 20:00 07/08/17 19:48 07/08/17 20:00 Intake and Output: 07/08/17 07/09/17 18:59 06:59 Intake Total 280 Output Total 785 150 Balance -505 -150 - Medications Medications: Current Medications Acetaminophen (Tylenol 650mg/20.3ml Solution Ud) 650 mg PO Q6 PRN PRN Reason: Fever 100.6 and above Last Admin: 07/06/17 11:58 Dose: 650 mg Aspirin (Aspirin Chewable) 81 mg PO DAILY [facility] Last Admin: 07/08/17 09:27 Dose: 81 mg Epoetin Pieter (Procrit) 10,000 unit SC TTS [facility] Last Admin: 07/07/17 10:20 Dose: 10,000 unit Famotidine (Pepcid) 20 mg IVP DAILY [facility] Last Admin: 07/08/17 09:29 Dose: 20 mg Ferric Sodium Gluconate Complex (Ferrlecit) 125 mg IVPB DAILY [facility] Stop: 07/15/17 23:21 Last Admin: 07/08/17 09:28 Dose: 125 mg Furosemide (Lasix) 40 mg IVP Q12 [facility] Last Admin: 07/08/17 12:56 Dose: 40 mg Heparin Sodium (Porcine) (Heparin) 5,000 units SC Q12 [facility] Last Admin: 07/08/17 09:28 Dose: 5,000 units Hydralazine HCl (Apresoline) 10 mg IVP Q6H [facility] Last Admin: 07/08/17 17:01 Dose: 10 mg Piperacillin Sod/Tazobactam Sod (Zosyn 2.25 Gm Iv Premix) 2.25 gm in 50 mls @ 100 mls/hr IVPB Q6H [facility] Last Admin: 07/08/17 17:02 Dose: 100 mls/hr Propofol (Diprivan) 1,000 mg in 100 mls @ 2.79 mls/hr IV .Q24H PRN; Protocol; 5 MCG/KG/MIN PRN Reason: TITRATE PER MD ORDER Last Titration: 07/08/17 08:00 Dose: 0 mcg/kg/min, 0 mls/hr Insulin Human Regular (Novolin R) 0 unit SC Q6H [facility] PRN Reason: Protocol Last Admin: 07/08/17 18:15 Dose: Not Given Losartan Potassium (Cozaar) 50 mg PO BID [facility] Last Admin: 07/06/17 09:34 Dose: 50 mg Metoprolol Tartrate (Lopressor) 25 mg PO BID [facility] Last Admin: 07/08/17 18:17 Dose: 25 mg Rosuvastatin Calcium (Crestor) 10 mg PO HS [facility] Last Admin: 07/07/17 22:48 Dose: 10 mg Vitamin B Complex/Vit C/Folic Acid (Nephro-Lc) 1 tab PO 0800 [facility] Last Admin: 07/08/17 09:29 Dose: 1 tab - Labs Labs: 07/08/17 06:14 07/08/17 06:14 PT 13.6 SECONDS (9.7-12.2) H 07/06/17 06:28 INR 1.2 07/06/17 06:28 APTT 33 SECONDS (21-34) D 07/06/17 06:28 Assessment and Plan - Assessment and Plan (Free Text) Assessment: Patient seen and evaluated with the medical receptionist medical assistant Plan of care as documented Possible cath prior to discharge
--- NOTE | 2017-07-08 12:03 | CP.PCM.PN ---
Subjective - Date & Time of Evaluation Date of Evaluation: 07/08/17 Time of Evaluation: 12:30 - Subjective Subjective: Patient seen- patient is intubated but awake, follows command, moves extremeties - discusssion with ICU- for extubation today clarification of lasix discussed with Renal and ICU currently no unususal events Objective - Vital Signs/Intake and Output Vital Signs (last 24 hours): Temp Pulse Resp BP Pulse Ox 98.6 F 77 19 136/80 100 07/08/17 08:00 07/08/17 11:00 07/08/17 04:00 07/08/17 10:48 07/08/17 11:00 Intake and Output: 07/08/17 07/08/17 06:59 18:59 Intake Total 784.8 40 Output Total 550 170 Balance 234.8 -130 - Medications Medications: Current Medications Acetaminophen (Tylenol 650mg/20.3ml Solution Ud) 650 mg PO Q6 PRN PRN Reason: Fever 100.6 and above Last Admin: 07/06/17 11:58 Dose: 650 mg Aspirin (Aspirin Chewable) 81 mg PO DAILY [facility] Last Admin: 07/08/17 09:27 Dose: 81 mg Epoetin Pieter (Procrit) 10,000 unit SC TTS [facility] Last Admin: 07/07/17 10:20 Dose: 10,000 unit Famotidine (Pepcid) 20 mg IVP DAILY [facility] Last Admin: 07/08/17 09:29 Dose: 20 mg Ferric Sodium Gluconate Complex (Ferrlecit) 125 mg IVPB DAILY [facility] Stop: 07/15/17 23:21 Last Admin: 07/08/17 09:28 Dose: 125 mg Heparin Sodium (Porcine) (Heparin) 5,000 units SC Q12 [facility] Last Admin: 07/08/17 09:28 Dose: 5,000 units Hydralazine HCl (Apresoline) 10 mg IVP Q6H [facility] Last Admin: 07/08/17 10:35 Dose: 10 mg Piperacillin Sod/Tazobactam Sod (Zosyn 2.25 Gm Iv Premix) 2.25 gm in 50 mls @ 100 mls/hr IVPB Q6H [facility] Last Admin: 07/08/17 10:34 Dose: 100 mls/hr Propofol (Diprivan) 1,000 mg in 100 mls @ 2.79 mls/hr IV .Q24H PRN; Protocol; 5 MCG/KG/MIN PRN Reason: TITRATE PER MD ORDER Last Titration: 07/08/17 01:00 Dose: 20 mcg/kg/min, 11.158 mls/hr Insulin Human Regular (Novolin R) 0 unit SC Q6H [facility] PRN Reason: Protocol Last Admin: 07/08/17 06:09 Dose: Not Given Losartan Potassium (Cozaar) 50 mg PO BID [facility] Last Admin: 07/06/17 09:34 Dose: 50 mg Metoprolol Tartrate (Lopressor) 25 mg PO BID [facility] Last Admin: 07/08/17 09:28 Dose: 25 mg Rosuvastatin Calcium (Crestor) 10 mg PO HS [facility] Last Admin: 07/07/17 22:48 Dose: 10 mg Vitamin B Complex/Vit C/Folic Acid (Nephro-Lc) 1 tab PO 0800 [facility] Last Admin: 07/08/17 09:29 Dose: 1 tab - Labs Labs: 07/08/17 06:14 07/08/17 06:14 PT 13.6 SECONDS (9.7-12.2) H 07/06/17 06:28 INR 1.2 07/06/17 06:28 APTT 33 SECONDS (21-34) D 07/06/17 06:28 - Constitutional Appears: No Acute Distress (intubated but awake , off sedtaion ) - Head Exam Head Exam: ATRAUMATIC, NORMOCEPHALIC - Eye Exam Eye Exam: Normal appearance - ENT Exam ENT Exam: Mucous Membranes Moist - Neck Exam Neck Exam: absent: Tenderness - Respiratory Exam Respiratory Exam: Decreased Breath Sounds (congested), NORMAL BREATHING PATTERN - Cardiovascular Exam Cardiovascular Exam: REGULAR RHYTHM - GI/Abdominal Exam GI & Abdominal Exam: Soft. absent: Tenderness - Extremities Exam Extremities Exam: Pedal Edema - Neurological Exam Neurological Exam: Alert, Awake (intubated) - Skin Skin Exam: Intact, Normal Color Assessment and Plan - Assessment and Plan (Free Text) Assessment: Patient with CRI with Fluid overload- with increasing creatinine- but with recurrent fluid retention- discussion with renal and ICU- to resume IV lasix Respiratory distress intubated- improved- for extubation today IDDM, been NPO- monitoring sliding scale CAD with history of CABG_ for further cardiac evaluation Anemia- stable with no gross bleeding - stable- was started on procrit - occult blood is negative Debility- plan for PT
--- NOTE | 2017-07-08 12:03 | EEG ---
DATE: 07/03/2017 This is a 16-channel electroencephalogram of awake and drowsy adult. During the study, photic stimulation was performed. Hyperventilation was not performed. The resting electroencephalogram consists of diffuse 5 to 7 Hz theta activities noted in bilateral parietal and occipital leads. Anteriorly, fast activity superimposed with 2 to 3 Hz delta activities seen. Thumb movement artifact noted intermittently. The photic stimulation did not evoke driving response noted at 2-25 Hz. IMPRESSION: This is an abnormal electroencephalogram because of persistent slowing throughout the record suggestive of bilateral cerebral dysfunction. This is probably secondary to metabolic, vascular or degenerative process. Please correlate the findings with the Neurological and Radiological studies. Arslan Carl MD
--- NOTE | 2017-07-08 14:57 | CP.CCUPN ---
<Gwen Rodriguez E - Last Filed: 07/08/17 15:24> CCU Subjective - Physician Review Subjective (Free Text): Patient was seen and examined at bedside. Patient is currently intubated and on light sedation. Patient is responsive to touch stimuli. Patient's was at bedside. Patient denies any discomfort. Unable to evaluate adequate ROS due to patient's current clinical status. CCU Objective - Vital Signs / Intake & Output Vital Signs (Last 4 hours): Vital Signs Pulse BP Pulse Ox 07/08/17 13:48 89 155/89 H 100 07/08/17 13:00 93 H 98 07/08/17 12:56 160/88 H 07/08/17 12:49 93 H 160/88 H 97 07/08/17 12:00 75 100 07/08/17 11:49 89 153/88 H 97 07/08/17 11:00 77 100 Intake and Output (Last 8hrs): Intake & Output 07/07/17 07/08/17 07/08/17 22:59 06:59 14:59 Intake Total 444.4 637.6 190 Output Total 335 410 260 Balance 109.4 227.6 -70 Weight 201 lb Intake: IV 100 140 Intake, IV Amount 184.4 317.6 150 Left hand # 2 16.8 Right Distal Port 117.6 117.6 Internal Jugular Right Medial Port 50 200 150 Internal Jugular Tube Feeding 160 180 40 Output: Urine 335 410 260 Urethral ([place]) 335 410 260 Other: # Bowel Movements 1 - Physical Exam Head: Positive for: Atraumatic, Normocephalic Conjunctiva: Positive for: Normal Mouth: Positive for: Moist Mucous Membranes Neck: Positive for: Normal Range of Motion Respiratory/Chest: Positive for: Good Air Exchange, Rales, Other (Currently intubated with plans to extubate ). Negative for: Accessory Muscle Use Cardiovascular: Positive for: Regular Rate and Rhythm, Normal S1, S2 Abdomen: Positive for: Distention, Normal Bowel Sounds. Negative for: Tenderness, Peritoneal Signs, Rebound, Guarding Upper Extremity: Positive for: Normal Inspection Lower Extremity: Positive for: Swelling Neurological: Positive for: GCS=15, Speech Normal Skin: Positive for: Normal Color Psychiatric: Positive for: Alert. Negative for: Oriented x 3 - Medications Active Medications: Active Medications Generic Name Dose Route Start Last Admin Trade Name Freq PRN Reason Stop Dose Admin Acetaminophen 650 mg 07/05/17 16:02 07/06/17 11:58 Tylenol 650mg/20.3ml Solution Ud PO 650 mg Q6 PRN Administration Fever 100.6 and above Aspirin 81 mg 07/07/17 10:00 07/08/17 09:27 Aspirin Chewable PO 81 mg DAILY RANDOLPH Administration Epoetin Pieter 10,000 unit 07/07/17 10:00 07/07/17 10:20 Procrit SC 10,000 unit TTS RANDOLPH Administration Famotidine 20 mg 07/03/17 11:00 07/08/17 09:29 Pepcid IVP 20 mg DAILY RANDOLPH Administration Ferric Sodium Gluconate Complex 125 mg 07/07/17 23:20 07/08/17 09:28 Ferrlecit IVPB 07/15/17 23:21 125 mg DAILY RANDOLPH Administration Furosemide 40 mg 07/08/17 12:51 07/08/17 12:56 Lasix IVP 40 mg Q12 RANDOLPH Administration Heparin Sodium (Porcine) 5,000 units 07/05/17 22:00 07/08/17 09:28 Heparin SC 5,000 units Q12 RANDOLPH Administration Hydralazine HCl 10 mg 07/03/17 11:04 07/08/17 10:35 Apresoline IVP 10 mg Q6H RANDOLPH Administration Piperacillin Sod/Tazobactam Sod 2.25 gm in 50 mls @ 100 mls/hr 07/05/17 17:15 07/08/17 10:34 Zosyn 2.25 Gm Iv Premix IVPB 100 mls/hr Q6H RANDOLPH Administration Propofol 1,000 mg in 100 mls @ 2.79 mls/hr 07/06/17 16:13 07/08/17 01:00 Diprivan IV 20 mcg/kg/min .Q24H PRN 11.158 mls/hr TITRATE PER MD ORDER Titration Protocol 5 MCG/KG/MIN Insulin Human Regular 0 unit 07/05/17 18:00 07/08/17 12:54 Novolin R SC 1 unit Q6H RANDOLPH Administration Protocol Losartan Potassium 50 mg 07/05/17 10:00 07/06/17 09:34 Cozaar PO 50 mg BID RANDOLPH Administration Metoprolol Tartrate 25 mg 07/03/17 10:00 07/08/17 09:28 Lopressor PO 25 mg BID RANDOLPH Administration Rosuvastatin Calcium 10 mg 07/03/17 22:00 07/07/17 22:48 Crestor PO 10 mg HS RANDOLPH Administration Vitamin B Complex/Vit C/Folic Acid 1 tab 07/07/17 10:00 07/08/17 09:29 Nephro-Lc PO 1 tab 0800 RANDOLPH Administration - Patient Studies Lab Studies: Microbiology Studies 07/05/17 16:04 Urine Culture - Final Urine,[place] Coagulase Neg Staphylococcus 07/02/17 23:00 Blood Culture - Final Blood-Venous NO GROWTH AFTER 5 DAYS Gram Stain - Final TEST NOT PERFORMED 07/02/17 22:45 Blood Culture - Final Blood-Venous NO GROWTH AFTER 5 DAYS Gram Stain - Final TEST NOT PERFORMED 07/05/17 16:00 Blood Culture - Preliminary Blood-Venous NO GROWTH AFTER 48 HOURS 07/05/17 15:45 Blood Culture - Preliminary Blood-Venous NO GROWTH AFTER 48 HOURS 07/05/17 16:04 Gram Stain - Final Trachasp Sputum Culture - Final NORMAL ORAL RICK Lab Studies 07/08/17 07/08/17 07/08/17 Range/Units 11:45 06:14 06:14 WBC 7.2 (4.8-10.8) K/uL RBC 3.27 L (4.40-5.90) Mil/uL Hgb 8.9 L (12.0-18.0) g/dL Hct 28.7 L (35.0-51.0) % MCV 87.7 (80.0-94.0) fL MCH 27.2 (27.0-31.0) pg MCHC 31.0 L (33.0-37.0) g/dL RDW 18.7 H (11.5-14.5) % Plt Count 202 (130-400) K/uL MPV 8.7 (7.2-11.7) fL Neut % (Auto) 79.2 H (50.0-75.0) % Lymph % (Auto) 11.3 L (20.0-40.0) % Dawes % (Auto) 5.6 (0.0-10.0) % Eos % (Auto) 3.3 (0.0-4.0) % Baso % (Auto) 0.6 (0.0-2.0) % Neut # 5.7 (1.8-7.0) K/uL Lymph # 0.8 L (1.0-4.3) K/uL Dawes # 0.4 (0.0-0.8) K/uL Eos # 0.2 (0.0-0.7) K/uL Baso # 0.0 (0.0-0.2) K/uL Puncture Site pCO2 (35-45) mm/Hg pO2 (80-100) mm/Hg HCO3 (21-28) mmol/L ABG pH (7.35-7.45) ABG Total CO2 (22-28) mmol/L ABG O2 Saturation (95-98) % ABG Base Excess (-2.0-3.0) mmol/L ABG Hemoglobin (11.7-17.4) g/dL ABG Carboxyhemoglobin (0.5-1.5) % POC ABG HHb (Measured) (0.0-5.0) % ABG Methemoglobin (0.0-3.0) % Luis Carlos Test A-a O2 Difference mm/Hg Respiratory Index Hgb O2 Saturation (95.0-98.0) % Vent Mode Mechanical Rate FiO2 % Tidal Volume PEEP Sodium 140 (132-148) mmol/L Potassium 3.8 (3.6-5.2) mmol/L Chloride 100 (98-107) mmol/L Carbon Dioxide 31 H (22-30) mmol/L Anion Gap 13 (10-20) BUN 48 H (9-20) mg/dL Creatinine 2.9 H (0.8-1.5) mg/dL Est GFR ( Amer) 27 Est GFR (Non-Af Amer) 22 POC Glucose (mg/dL) 153 H (65-110) mg/dL Random Glucose 108 (75-110) mg/dL Calcium 8.2 L (8.6-10.4) mg/dl Phosphorus 5.8 H (2.5-4.5) mg/dL Magnesium 2.9 H (1.6-2.3) mg/dL Iron (49-181) ug/dL TIBC (250-450) ug/dL % Saturation (20-55) Ferritin ng/mL Total Bilirubin 0.7 (0.2-1.3) mg/dL AST 15 L (17-59) U/L ALT 25 (21-72) U/L Alkaline Phosphatase 136 H D (38-126) U/L Total Protein 6.6 (6.3-8.3) g/dL Albumin 2.8 L (3.5-5.0) g/dL Globulin 3.8 (2.2-3.9) gm/dL Albumin/Globulin Ratio 0.7 L (1.0-2.1) Stool Occult Blood (NEGATIVE) Blood Type Antibody Screen 07/08/17 07/08/17 07/08/17 Range/Units 05:16 04:12 00:00 WBC (4.8-10.8) K/uL RBC (4.40-5.90) Mil/uL Hgb (12.0-18.0) g/dL Hct (35.0-51.0) % MCV (80.0-94.0) fL MCH (27.0-31.0) pg MCHC (33.0-37.0) g/dL RDW (11.5-14.5) % Plt Count (130-400) K/uL MPV (7.2-11.7) fL Neut % (Auto) (50.0-75.0) % Lymph % (Auto) (20.0-40.0) % Dawes % (Auto) (0.0-10.0) % Eos % (Auto) (0.0-4.0) % Baso % (Auto) (0.0-2.0) % Neut # (1.8-7.0) K/uL Lymph # (1.0-4.3) K/uL Dawes # (0.0-0.8) K/uL Eos # (0.0-0.7) K/uL Baso # (0.0-0.2) K/uL Puncture Site Rba pCO2 48 H (35-45) mm/Hg pO2 214 H (80-100) mm/Hg HCO3 28.3 H (21-28) mmol/L ABG pH 7.41 (7.35-7.45) ABG Total CO2 31.9 H (22-28) mmol/L ABG O2 Saturation 99.6 H (95-98) % ABG Base Excess 4.4 H (-2.0-3.0) mmol/L ABG Hemoglobin 18.8 H (11.7-17.4) g/dL ABG Carboxyhemoglobin 1.8 H (0.5-1.5) % POC ABG HHb (Measured) 0.4 (0.0-5.0) % ABG Methemoglobin 0.9 (0.0-3.0) % Luis Carlos Test Na A-a O2 Difference 83.0 mm/Hg Respiratory Index 0.4 Hgb O2 Saturation 96.9 (95.0-98.0) % Vent Mode Prvc Mechanical Rate 12 FiO2 50.0 % Tidal Volume 400 PEEP 5 Sodium (132-148) mmol/L Potassium (3.6-5.2) mmol/L Chloride (98-107) mmol/L Carbon Dioxide (22-30) mmol/L Anion Gap (10-20) BUN (9-20) mg/dL Creatinine (0.8-1.5) mg/dL Est GFR ( Amer) Est GFR (Non-Af Amer) POC Glucose (mg/dL) 143 H (65-110) mg/dL Random Glucose (75-110) mg/dL Calcium (8.6-10.4) mg/dl Phosphorus (2.5-4.5) mg/dL Magnesium (1.6-2.3) mg/dL Iron (49-181) ug/dL TIBC (250-450) ug/dL % Saturation (20-55) Ferritin ng/mL Total Bilirubin (0.2-1.3) mg/dL AST (17-59) U/L ALT (21-72) U/L Alkaline Phosphatase (38-126) U/L Total Protein (6.3-8.3) g/dL Albumin (3.5-5.0) g/dL Globulin (2.2-3.9) gm/dL Albumin/Globulin Ratio (1.0-2.1) Stool Occult Blood Negative (NEGATIVE) Blood Type Antibody Screen 07/07/17 07/07/17 07/07/17 Range/Units 23:41 17:43 15:07 WBC (4.8-10.8) K/uL RBC (4.40-5.90) Mil/uL Hgb (12.0-18.0) g/dL Hct (35.0-51.0) % MCV (80.0-94.0) fL MCH (27.0-31.0) pg MCHC (33.0-37.0) g/dL RDW (11.5-14.5) % Plt Count (130-400) K/uL MPV (7.2-11.7) fL Neut % (Auto) (50.0-75.0) % Lymph % (Auto) (20.0-40.0) % Dawes % (Auto) (0.0-10.0) % Eos % (Auto) (0.0-4.0) % Baso % (Auto) (0.0-2.0) % Neut # (1.8-7.0) K/uL Lymph # (1.0-4.3) K/uL Dawes # (0.0-0.8) K/uL Eos # (0.0-0.7) K/uL Baso # (0.0-0.2) K/uL Puncture Site pCO2 (35-45) mm/Hg pO2 (80-100) mm/Hg HCO3 (21-28) mmol/L ABG pH (7.35-7.45) ABG Total CO2 (22-28) mmol/L ABG O2 Saturation (95-98) % ABG Base Excess (-2.0-3.0) mmol/L ABG Hemoglobin (11.7-17.4) g/dL ABG Carboxyhemoglobin (0.5-1.5) % POC ABG HHb (Measured) (0.0-5.0) % ABG Methemoglobin (0.0-3.0) % Luis Carlos Test A-a O2 Difference mm/Hg Respiratory Index Hgb O2 Saturation (95.0-98.0) % Vent Mode Mechanical Rate FiO2 % Tidal Volume PEEP Sodium (132-148) mmol/L Potassium (3.6-5.2) mmol/L Chloride (98-107) mmol/L Carbon Dioxide (22-30) mmol/L Anion Gap (10-20) BUN (9-20) mg/dL Creatinine (0.8-1.5) mg/dL Est GFR ( Amer) Est GFR (Non-Af Amer) POC Glucose (mg/dL) 155 H 141 H (65-110) mg/dL Random Glucose (75-110) mg/dL Calcium (8.6-10.4) mg/dl Phosphorus (2.5-4.5) mg/dL Magnesium (1.6-2.3) mg/dL Iron (49-181) ug/dL TIBC (250-450) ug/dL % Saturation (20-55) Ferritin ng/mL Total Bilirubin (0.2-1.3) mg/dL AST (17-59) U/L ALT (21-72) U/L Alkaline Phosphatase (38-126) U/L Total Protein (6.3-8.3) g/dL Albumin (3.5-5.0) g/dL Globulin (2.2-3.9) gm/dL Albumin/Globulin Ratio (1.0-2.1) Stool Occult Blood (NEGATIVE) Blood Type B POSITIVE Antibody Screen Negative 07/07/17 07/07/17 Range/Units 15:07 15:07 WBC (4.8-10.8) K/uL RBC (4.40-5.90) Mil/uL Hgb (12.0-18.0) g/dL Hct (35.0-51.0) % MCV (80.0-94.0) fL MCH (27.0-31.0) pg MCHC (33.0-37.0) g/dL RDW (11.5-14.5) % Plt Count (130-400) K/uL MPV (7.2-11.7) fL Neut % (Auto) (50.0-75.0) % Lymph % (Auto) (20.0-40.0) % Dawes % (Auto) (0.0-10.0) % Eos % (Auto) (0.0-4.0) % Baso % (Auto) (0.0-2.0) % Neut # (1.8-7.0) K/uL Lymph # (1.0-4.3) K/uL Dawes # (0.0-0.8) K/uL Eos # (0.0-0.7) K/uL Baso # (0.0-0.2) K/uL Puncture Site pCO2 (35-45) mm/Hg pO2 (80-100) mm/Hg HCO3 (21-28) mmol/L ABG pH (7.35-7.45) ABG Total CO2 (22-28) mmol/L ABG O2 Saturation (95-98) % ABG Base Excess (-2.0-3.0) mmol/L ABG Hemoglobin (11.7-17.4) g/dL ABG Carboxyhemoglobin (0.5-1.5) % POC ABG HHb (Measured) (0.0-5.0) % ABG Methemoglobin (0.0-3.0) % Luis Carlos Test A-a O2 Difference mm/Hg Respiratory Index Hgb O2 Saturation (95.0-98.0) % Vent Mode Mechanical Rate FiO2 % Tidal Volume PEEP Sodium (132-148) mmol/L Potassium (3.6-5.2) mmol/L Chloride (98-107) mmol/L Carbon Dioxide (22-30) mmol/L Anion Gap (10-20) BUN (9-20) mg/dL Creatinine (0.8-1.5) mg/dL Est GFR ( Amer) Est GFR (Non-Af Amer) POC Glucose (mg/dL) (65-110) mg/dL Random Glucose (75-110) mg/dL Calcium (8.6-10.4) mg/dl Phosphorus (2.5-4.5) mg/dL Magnesium (1.6-2.3) mg/dL Iron 12 L (49-181) ug/dL TIBC 208 L (250-450) ug/dL % Saturation 6 L (20-55) Ferritin 368.0 ng/mL Total Bilirubin (0.2-1.3) mg/dL AST (17-59) U/L ALT (21-72) U/L Alkaline Phosphatase (38-126) U/L Total Protein (6.3-8.3) g/dL Albumin (3.5-5.0) g/dL Globulin (2.2-3.9) gm/dL Albumin/Globulin Ratio (1.0-2.1) Stool Occult Blood (NEGATIVE) Blood Type Antibody Screen Laboratory Results - last 24 hr 07/07/17 07/07/17 07/07/17 15:07 15:07 15:07 WBC RBC Hgb Hct MCV MCH MCHC RDW Plt Count MPV Neut % (Auto) Lymph % (Auto) Dawes % (Auto) Eos % (Auto) Baso % (Auto) Neut # Lymph # Dawes # Eos # Baso # Puncture Site pCO2 pO2 HCO3 ABG pH ABG Total CO2 ABG O2 Saturation ABG Base Excess ABG Hemoglobin ABG Carboxyhemoglobin POC ABG HHb (Measured) ABG Methemoglobin Luis Carlos Test A-a O2 Difference Respiratory Index Hgb O2 Saturation Vent Mode Mechanical Rate FiO2 Tidal Volume PEEP Sodium Potassium Chloride Carbon Dioxide Anion Gap BUN Creatinine Est GFR ( Amer) Est GFR (Non-Af Amer) POC Glucose (mg/dL) Random Glucose Calcium Phosphorus Magnesium Iron 12 L TIBC 208 L % Saturation 6 L Ferritin 368.0 Total Bilirubin AST ALT Alkaline Phosphatase Total Protein Albumin Globulin Albumin/Globulin Ratio Stool Occult Blood Blood Type B POSITIVE Antibody Screen Negative 07/07/17 07/07/17 07/08/17 17:43 23:41 00:00 WBC RBC Hgb Hct MCV MCH MCHC RDW Plt Count MPV Neut % (Auto) Lymph % (Auto) Dawes % (Auto) Eos % (Auto) Baso % (Auto) Neut # Lymph # Dawes # Eos # Baso # Puncture Site pCO2 pO2 HCO3 ABG pH ABG Total CO2 ABG O2 Saturation ABG Base Excess ABG Hemoglobin ABG Carboxyhemoglobin POC ABG HHb (Measured) ABG Methemoglobin Luis Carlos Test A-a O2 Difference Respiratory Index Hgb O2 Saturation Vent Mode Mechanical Rate FiO2 Tidal Volume PEEP Sodium Potassium Chloride Carbon Dioxide Anion Gap BUN Creatinine Est GFR ( Amer) Est GFR (Non-Af Amer) POC Glucose (mg/dL) 141 H 155 H Random Glucose Calcium Phosphorus Magnesium Iron TIBC % Saturation Ferritin Total Bilirubin AST ALT Alkaline Phosphatase Total Protein Albumin Globulin Albumin/Globulin Ratio Stool Occult Blood Negative Blood Type Antibody Screen 07/08/17 07/08/17 07/08/17 04:12 05:16 06:14 WBC 7.2 RBC 3.27 L Hgb 8.9 L Hct 28.7 L MCV 87.7 MCH 27.2 MCHC 31.0 L RDW 18.7 H Plt Count 202 MPV 8.7 Neut % (Auto) 79.2 H Lymph % (Auto) 11.3 L Dawes % (Auto) 5.6 Eos % (Auto) 3.3 Baso % (Auto) 0.6 Neut # 5.7 Lymph # 0.8 L Dawes # 0.4 Eos # 0.2 Baso # 0.0 Puncture Site Rba pCO2 48 H pO2 214 H HCO3 28.3 H ABG pH 7.41 ABG Total CO2 31.9 H ABG O2 Saturation 99.6 H ABG Base Excess 4.4 H ABG Hemoglobin 18.8 H ABG Carboxyhemoglobin 1.8 H POC ABG HHb (Measured) 0.4 ABG Methemoglobin 0.9 Luis Carlos Test Na A-a O2 Difference 83.0 Respiratory Index 0.4 Hgb O2 Saturation 96.9 Vent Mode Prvc Mechanical Rate 12 FiO2 50.0 Tidal Volume 400 PEEP 5 Sodium Potassium Chloride Carbon Dioxide Anion Gap BUN Creatinine Est GFR ( Amer) Est GFR (Non-Af Amer) POC Glucose (mg/dL) 143 H Random Glucose Calcium Phosphorus Magnesium Iron TIBC % Saturation Ferritin Total Bilirubin AST ALT Alkaline Phosphatase Total Protein Albumin Globulin Albumin/Globulin Ratio Stool Occult Blood Blood Type Antibody Screen 07/08/17 07/08/17 06:14 11:45 WBC RBC Hgb Hct MCV MCH MCHC RDW Plt Count MPV Neut % (Auto) Lymph % (Auto) Dawes % (Auto) Eos % (Auto) Baso % (Auto) Neut # Lymph # Dawes # Eos # Baso # Puncture Site pCO2 pO2 HCO3 ABG pH ABG Total CO2 ABG O2 Saturation ABG Base Excess ABG Hemoglobin ABG Carboxyhemoglobin POC ABG HHb (Measured) ABG Methemoglobin Luis Carlos Test A-a O2 Difference Respiratory Index Hgb O2 Saturation Vent Mode Mechanical Rate FiO2 Tidal Volume PEEP Sodium 140 Potassium 3.8 Chloride 100 Carbon Dioxide 31 H Anion Gap 13 BUN 48 H Creatinine 2.9 H Est GFR ( Amer) 27 Est GFR (Non-Af Amer) 22 POC Glucose (mg/dL) 153 H Random Glucose 108 Calcium 8.2 L Phosphorus 5.8 H Magnesium 2.9 H Iron TIBC % Saturation Ferritin Total Bilirubin 0.7 AST 15 L ALT 25 Alkaline Phosphatase 136 H D Total Protein 6.6 Albumin 2.8 L Globulin 3.8 Albumin/Globulin Ratio 0.7 L Stool Occult Blood Blood Type Antibody Screen Fingerstick Blood Sugar Results: 157 Review of Systems - Review of Systems Review of Systems: Unable to evaluate adequate ROS as the patient was lightly sedated and intubated Critical Care Progress Note - Ventilator Checklist Daily Sedation Vacation: No Daily Assessment of Readiness to Wean: No Daily Spontaneous Breathing Trial: No PUD Prophalyxis: Yes DVT Prophylaxis: Yes - Nutrition Nutrition: Nutrition Category Date Time Status NPO Diet [DIET] Diets 07/06/17 Breakfast Active Assessment/Plan - Assessment and Plan (Free Text) Assessment: 67 M with past medical history of for Diabetes, CAD, CABG, Hypercholesterolemia , and TIA, who was noted by his to be lethargic, peripheral edema, difficulty with breathing. Patient was seen by his PMD, who referred him to an urgent care or ER. Patient was found to be hypertensive, lethargic hypoglycemic , with retaining CO2, needing very minimal O2. Patient was intubated (07/05/17) due to respiratory distress and unresponsive to BiPAP Today: Plan: Continue current management and plans for extubation Plan: Neuro: Intubated, Alert and awake Medication/Management: * Plans for extubation today Cardio: Hypertensive, CHF exacerbation, Hx of CAD/CABG, HLD Mildly elevated Troponin I: 0.1250--->0.1030--->0.1320 [facility] [employer] Consult, Dr. Butler----> Help appreciated * Management as per recommendation Medication/Management: * Lopressor 25mg PO BID * Hydralazine 10mg IVP Q6H (Hold with SBP <120mm Hg) * Crestor 10mg PO HS * Aspirin 81mg PO daily Pulm: Respiratory distress secondary to possible CHF exacerbation Chest X-ray (07/06/17): Moderate to severe venous congestion with prominent confluent bibasilar airspace opacities and small bilateral pleural effusions and Nodular consolidative changes at the right lung base Medication/Management: * Intubated * Lasix 40mg IVP Q12H GI: No acute issues Endo: Hx of Diabetes Medication/Management: * Accuchecks * ISS (Medium dose protocol) Heme: Anemia Medication/Management: * Ferric sodium gluconate 125mg IVPB daily * Epocrit 10,000 unit SC TTS Renal: DAWN Lime Slaker, Dr. Jones----> Help appreciated * Management as per recommendation MSK: Acute gout exacerbation, hx of GOUT Medication/Management: * Allopurinol 100mg PO daily ( Discontinued 07/06/17) * Colchicine 0.6mg PO ONCE ID: Fever (Tmax: 100.6), No leukocytosis Sputum culture: Gram stain ( Few Gram Positive Cocci), pending culture Chest X-ray (07/06/17): Moderate to severe venous congestion with prominent confluent bibasilar airspace opacities and small bilateral pleural effusions and Nodular consolidative changes at the right lung base Medication/Management: * Zosyn 2.25 gm IV premix Q6H (started 07/05/17) * Tylenol 650mg PO Q6 prn for fever> 100.6 Prophylaxis: DVT: SCDS contraindicated due to B/L LE edema. Heparin 5,000 units SC Q12H GI: Pepcid 20mg IVP daily Nephrovite 1 Tab po daily NPO Aspiration precautions <Atul lAves - Last Filed: 07/08/17 16:36> CCU Objective - Vital Signs / Intake & Output Vital Signs (Last 4 hours): Vital Signs Pulse Resp BP Pulse Ox 07/08/17 15:00 92 H 25 H 100 07/08/17 14:48 90 12 161/85 H 100 07/08/17 13:48 89 155/89 H 100 07/08/17 13:00 93 H 98 07/08/17 12:56 160/88 H 07/08/17 12:49 93 H 160/88 H 97 Intake and Output (Last 8hrs): Intake & Output 07/08/17 07/08/17 07/08/17 06:59 14:59 22:59 Intake Total 637.6 230 Output Total 410 335 75 Balance 227.6 -105 -75 Weight 201 lb Intake: IV 140 40 Intake, IV Amount 317.6 150 Right Distal Port 117.6 Internal Jugular Right Medial Port 200 150 Internal Jugular Tube Feeding 180 40 Output: Urine 410 335 75 Urethral ([place]) 410 335 75 Other: # Bowel Movements 1 - Medications Active Medications: Active Medications Generic Name Dose Route Start Last Admin Trade Name Freq PRN Reason Stop Dose Admin Acetaminophen 650 mg 07/05/17 16:02 07/06/17 11:58 Tylenol 650mg/20.3ml Solution Ud PO 650 mg Q6 PRN Administration Fever 100.6 and above Aspirin 81 mg 07/07/17 10:00 07/08/17 09:27 Aspirin Chewable PO 81 mg DAILY RANDOLPH Administration Epoetin Pieter 10,000 unit 07/07/17 10:00 07/07/17 10:20 Procrit SC 10,000 unit TTS RANDOLPH Administration Famotidine 20 mg 07/03/17 11:00 07/08/17 09:29 Pepcid IVP 20 mg DAILY RANDOLPH Administration Ferric Sodium Gluconate Complex 125 mg 07/07/17 23:20 07/08/17 09:28 Ferrlecit IVPB 07/15/17 23:21 125 mg DAILY RANDOLPH Administration Furosemide 40 mg 07/08/17 12:51 07/08/17 12:56 Lasix IVP 40 mg Q12 RANDOLPH Administration Heparin Sodium (Porcine) 5,000 units 07/05/17 22:00 07/08/17 09:28 Heparin SC 5,000 units Q12 RANDOLPH Administration Hydralazine HCl 10 mg 07/03/17 11:04 07/08/17 10:35 Apresoline IVP 10 mg Q6H RANDOLPH Administration Piperacillin Sod/Tazobactam Sod 2.25 gm in 50 mls @ 100 mls/hr 07/05/17 17:15 07/08/17 10:34 Zosyn 2.25 Gm Iv Premix IVPB 100 mls/hr Q6H RANDOLPH Administration Propofol 1,000 mg in 100 mls @ 2.79 mls/hr 07/06/17 16:13 07/08/17 08:00 Diprivan IV 0 mcg/kg/min .Q24H PRN 0 mls/hr TITRATE PER MD ORDER Titration Protocol 5 MCG/KG/MIN Insulin Human Regular 0 unit 07/05/17 18:00 07/08/17 12:54 Novolin R SC 1 unit Q6H RANDOLPH Administration Protocol Losartan Potassium 50 mg 07/05/17 10:00 07/06/17 09:34 Cozaar PO 50 mg BID RANDOLPH Administration Metoprolol Tartrate 25 mg 07/03/17 10:00 07/08/17 09:28 Lopressor PO 25 mg BID RANDOLPH Administration Rosuvastatin Calcium 10 mg 07/03/17 22:00 07/07/17 22:48 Crestor PO 10 mg HS RANDOLPH Administration Vitamin B Complex/Vit C/Folic Acid 1 tab 07/07/17 10:00 07/08/17 09:29 Nephro-Lc PO 1 tab 0800 RADNOLPH Administration - Patient Studies Lab Studies: Microbiology Studies 07/05/17 16:04 Urine Culture - Final Urine,[place] Coagulase Neg Staphylococcus 07/02/17 23:00 Blood Culture - Final Blood-Venous NO GROWTH AFTER 5 DAYS Gram Stain - Final TEST NOT PERFORMED 07/02/17 22:45 Blood Culture - Final Blood-Venous NO GROWTH AFTER 5 DAYS Gram Stain - Final TEST NOT PERFORMED 07/05/17 16:00 Blood Culture - Preliminary Blood-Venous NO GROWTH AFTER 48 HOURS 07/05/17 15:45 Blood Culture - Preliminary Blood-Venous NO GROWTH AFTER 48 HOURS Lab Studies 07/08/17 07/08/17 07/08/17 Range/Units 11:45 06:14 06:14 WBC 7.2 (4.8-10.8) K/uL RBC 3.27 L (4.40-5.90) Mil/uL Hgb 8.9 L (12.0-18.0) g/dL Hct 28.7 L (35.0-51.0) % MCV 87.7 (80.0-94.0) fL MCH 27.2 (27.0-31.0) pg MCHC 31.0 L (33.0-37.0) g/dL RDW 18.7 H (11.5-14.5) % Plt Count 202 (130-400) K/uL MPV 8.7 (7.2-11.7) fL Neut % (Auto) 79.2 H (50.0-75.0) % Lymph % (Auto) 11.3 L (20.0-40.0) % Dawes % (Auto) 5.6 (0.0-10.0) % Eos % (Auto) 3.3 (0.0-4.0) % Baso % (Auto) 0.6 (0.0-2.0) % Neut # 5.7 (1.8-7.0) K/uL Lymph # 0.8 L (1.0-4.3) K/uL Dawes # 0.4 (0.0-0.8) K/uL Eos # 0.2 (0.0-0.7) K/uL Baso # 0.0 (0.0-0.2) K/uL Puncture Site pCO2 (35-45) mm/Hg pO2 (80-100) mm/Hg HCO3 (21-28) mmol/L ABG pH (7.35-7.45) ABG Total CO2 (22-28) mmol/L ABG O2 Saturation (95-98) % ABG Base Excess (-2.0-3.0) mmol/L ABG Hemoglobin (11.7-17.4) g/dL ABG Carboxyhemoglobin (0.5-1.5) % POC ABG HHb (Measured) (0.0-5.0) % ABG Methemoglobin (0.0-3.0) % Luis Carlos Test A-a O2 Difference mm/Hg Respiratory Index Hgb O2 Saturation (95.0-98.0) % Vent Mode Mechanical Rate FiO2 % Tidal Volume PEEP Sodium 140 (132-148) mmol/L Potassium 3.8 (3.6-5.2) mmol/L Chloride 100 (98-107) mmol/L Carbon Dioxide 31 H (22-30) mmol/L Anion Gap 13 (10-20) BUN 48 H (9-20) mg/dL Creatinine 2.9 H (0.8-1.5) mg/dL Est GFR ( Amer) 27 Est GFR (Non-Af Amer) 22 POC Glucose (mg/dL) 153 H (65-110) mg/dL Random Glucose 108 (75-110) mg/dL Calcium 8.2 L (8.6-10.4) mg/dl Phosphorus 5.8 H (2.5-4.5) mg/dL Magnesium 2.9 H (1.6-2.3) mg/dL Total Bilirubin 0.7 (0.2-1.3) mg/dL AST 15 L (17-59) U/L ALT 25 (21-72) U/L Alkaline Phosphatase 136 H D (38-126) U/L Total Protein 6.6 (6.3-8.3) g/dL Albumin 2.8 L (3.5-5.0) g/dL Globulin 3.8 (2.2-3.9) gm/dL Albumin/Globulin Ratio 0.7 L (1.0-2.1) Stool Occult Blood (NEGATIVE) Blood Type Antibody Screen 07/08/17 07/08/17 07/08/17 Range/Units 05:16 04:12 00:00 WBC (4.8-10.8) K/uL RBC (4.40-5.90) Mil/uL Hgb (12.0-18.0) g/dL Hct (35.0-51.0) % MCV (80.0-94.0) fL MCH (27.0-31.0) pg MCHC (33.0-37.0) g/dL RDW (11.5-14.5) % Plt Count (130-400) K/uL MPV (7.2-11.7) fL Neut % (Auto) (50.0-75.0) % Lymph % (Auto) (20.0-40.0) % Dawes % (Auto) (0.0-10.0) % Eos % (Auto) (0.0-4.0) % Baso % (Auto) (0.0-2.0) % Neut # (1.8-7.0) K/uL Lymph # (1.0-4.3) K/uL Dawes # (0.0-0.8) K/uL Eos # (0.0-0.7) K/uL Baso # (0.0-0.2) K/uL Puncture Site Rba pCO2 48 H (35-45) mm/Hg pO2 214 H (80-100) mm/Hg HCO3 28.3 H (21-28) mmol/L ABG pH 7.41 (7.35-7.45) ABG Total CO2 31.9 H (22-28) mmol/L ABG O2 Saturation 99.6 H (95-98) % ABG Base Excess 4.4 H (-2.0-3.0) mmol/L ABG Hemoglobin 18.8 H (11.7-17.4) g/dL ABG Carboxyhemoglobin 1.8 H (0.5-1.5) % POC ABG HHb (Measured) 0.4 (0.0-5.0) % ABG Methemoglobin 0.9 (0.0-3.0) % Luis Carlos Test Na A-a O2 Difference 83.0 mm/Hg Respiratory Index 0.4 Hgb O2 Saturation 96.9 (95.0-98.0) % Vent Mode Prvc Mechanical Rate 12 FiO2 50.0 % Tidal Volume 400 PEEP 5 Sodium (132-148) mmol/L Potassium (3.6-5.2) mmol/L Chloride (98-107) mmol/L Carbon Dioxide (22-30) mmol/L Anion Gap (10-20) BUN (9-20) mg/dL Creatinine (0.8-1.5) mg/dL Est GFR ( Amer) Est GFR (Non-Af Amer) POC Glucose (mg/dL) 143 H (65-110) mg/dL Random Glucose (75-110) mg/dL Calcium (8.6-10.4) mg/dl Phosphorus (2.5-4.5) mg/dL Magnesium (1.6-2.3) mg/dL Total Bilirubin (0.2-1.3) mg/dL AST (17-59) U/L ALT (21-72) U/L Alkaline Phosphatase (38-126) U/L Total Protein (6.3-8.3) g/dL Albumin (3.5-5.0) g/dL Globulin (2.2-3.9) gm/dL Albumin/Globulin Ratio (1.0-2.1) Stool Occult Blood Negative (NEGATIVE) Blood Type Antibody Screen 07/07/17 07/07/17 07/07/17 Range/Units 23:41 17:43 15:07 WBC (4.8-10.8) K/uL RBC (4.40-5.90) Mil/uL Hgb (12.0-18.0) g/dL Hct (35.0-51.0) % MCV (80.0-94.0) fL MCH (27.0-31.0) pg MCHC (33.0-37.0) g/dL RDW (11.5-14.5) % Plt Count (130-400) K/uL MPV (7.2-11.7) fL Neut % (Auto) (50.0-75.0) % Lymph % (Auto) (20.0-40.0) % Dawes % (Auto) (0.0-10.0) % Eos % (Auto) (0.0-4.0) % Baso % (Auto) (0.0-2.0) % Neut # (1.8-7.0) K/uL Lymph # (1.0-4.3) K/uL Dawes # (0.0-0.8) K/uL Eos # (0.0-0.7) K/uL Baso # (0.0-0.2) K/uL Puncture Site pCO2 (35-45) mm/Hg pO2 (80-100) mm/Hg HCO3 (21-28) mmol/L ABG pH (7.35-7.45) ABG Total CO2 (22-28) mmol/L ABG O2 Saturation (95-98) % ABG Base Excess (-2.0-3.0) mmol/L ABG Hemoglobin (11.7-17.4) g/dL ABG Carboxyhemoglobin (0.5-1.5) % POC ABG HHb (Measured) (0.0-5.0) % ABG Methemoglobin (0.0-3.0) % Luis Carlos Test A-a O2 Difference mm/Hg Respiratory Index Hgb O2 Saturation (95.0-98.0) % Vent Mode Mechanical Rate FiO2 % Tidal Volume PEEP Sodium (132-148) mmol/L Potassium (3.6-5.2) mmol/L Chloride (98-107) mmol/L Carbon Dioxide (22-30) mmol/L Anion Gap (10-20) BUN (9-20) mg/dL Creatinine (0.8-1.5) mg/dL Est GFR ( Amer) Est GFR (Non-Af Amer) POC Glucose (mg/dL) 155 H 141 H (65-110) mg/dL Random Glucose (75-110) mg/dL Calcium (8.6-10.4) mg/dl Phosphorus (2.5-4.5) mg/dL Magnesium (1.6-2.3) mg/dL Total Bilirubin (0.2-1.3) mg/dL AST (17-59) U/L ALT (21-72) U/L Alkaline Phosphatase (38-126) U/L Total Protein (6.3-8.3) g/dL Albumin (3.5-5.0) g/dL Globulin (2.2-3.9) gm/dL Albumin/Globulin Ratio (1.0-2.1) Stool Occult Blood (NEGATIVE) Blood Type B POSITIVE Antibody Screen Negative Laboratory Results - last 24 hr 07/07/17 07/07/17 07/07/17 15:07 17:43 23:41 WBC RBC Hgb Hct MCV MCH MCHC RDW Plt Count MPV Neut % (Auto) Lymph % (Auto) Dawes % (Auto) Eos % (Auto) Baso % (Auto) Neut # Lymph # Dawes # Eos # Baso # Puncture Site pCO2 pO2 HCO3 ABG pH ABG Total CO2 ABG O2 Saturation ABG Base Excess ABG Hemoglobin ABG Carboxyhemoglobin POC ABG HHb (Measured) ABG Methemoglobin Luis Carlos Test A-a O2 Difference Respiratory Index Hgb O2 Saturation Vent Mode Mechanical Rate FiO2 Tidal Volume PEEP Sodium Potassium Chloride Carbon Dioxide Anion Gap BUN Creatinine Est GFR ( Amer) Est GFR (Non-Af Amer) POC Glucose (mg/dL) 141 H 155 H Random Glucose Calcium Phosphorus Magnesium Total Bilirubin AST ALT Alkaline Phosphatase Total Protein Albumin Globulin Albumin/Globulin Ratio Stool Occult Blood Blood Type B POSITIVE Antibody Screen Negative 07/08/17 07/08/17 07/08/17 00:00 04:12 05:16 WBC RBC Hgb Hct MCV MCH MCHC RDW Plt Count MPV Neut % (Auto) Lymph % (Auto) Dawes % (Auto) Eos % (Auto) Baso % (Auto) Neut # Lymph # Dawes # Eos # Baso # Puncture Site Rba pCO2 48 H pO2 214 H HCO3 28.3 H ABG pH 7.41 ABG Total CO2 31.9 H ABG O2 Saturation 99.6 H ABG Base Excess 4.4 H ABG Hemoglobin 18.8 H ABG Carboxyhemoglobin 1.8 H POC ABG HHb (Measured) 0.4 ABG Methemoglobin 0.9 Luis Carlos Test Na A-a O2 Difference 83.0 Respiratory Index 0.4 Hgb O2 Saturation 96.9 Vent Mode Prvc Mechanical Rate 12 FiO2 50.0 Tidal Volume 400 PEEP 5 Sodium Potassium Chloride Carbon Dioxide Anion Gap BUN Creatinine Est GFR ( Amer) Est GFR (Non-Af Amer) POC Glucose (mg/dL) 143 H Random Glucose Calcium Phosphorus Magnesium Total Bilirubin AST ALT Alkaline Phosphatase Total Protein Albumin Globulin Albumin/Globulin Ratio Stool Occult Blood Negative Blood Type Antibody Screen 07/08/17 07/08/17 07/08/17 06:14 06:14 11:45 WBC 7.2 RBC 3.27 L Hgb 8.9 L Hct 28.7 L MCV 87.7 MCH 27.2 MCHC 31.0 L RDW 18.7 H Plt Count 202 MPV 8.7 Neut % (Auto) 79.2 H Lymph % (Auto) 11.3 L Dawes % (Auto) 5.6 Eos % (Auto) 3.3 Baso % (Auto) 0.6 Neut # 5.7 Lymph # 0.8 L Dawes # 0.4 Eos # 0.2 Baso # 0.0 Puncture Site pCO2 pO2 HCO3 ABG pH ABG Total CO2 ABG O2 Saturation ABG Base Excess ABG Hemoglobin ABG Carboxyhemoglobin POC ABG HHb (Measured) ABG Methemoglobin Luis Carlos Test A-a O2 Difference Respiratory Index Hgb O2 Saturation Vent Mode Mechanical Rate FiO2 Tidal Volume PEEP Sodium 140 Potassium 3.8 Chloride 100 Carbon Dioxide 31 H Anion Gap 13 BUN 48 H Creatinine 2.9 H Est GFR ( Amer) 27 Est GFR (Non-Af Amer) 22 POC Glucose (mg/dL) 153 H Random Glucose 108 Calcium 8.2 L Phosphorus 5.8 H Magnesium 2.9 H Total Bilirubin 0.7 AST 15 L ALT 25 Alkaline Phosphatase 136 H D Total Protein 6.6 Albumin 2.8 L Globulin 3.8 Albumin/Globulin Ratio 0.7 L Stool Occult Blood Blood Type Antibody Screen Critical Care Progress Note - Nutrition Nutrition: Nutrition Category Date Time Status NPO Diet [DIET] Diets 07/06/17 Breakfast Active Assessment/Plan (1) Hypercapnic respiratory failure, chronic Current Visit: Yes Status: Acute Comment: Hypercapnic respiratory failure secondary to CHF and obstructive sleep apnea Continue Lasix and BiPAP Started on heparin drip by cardiology for elevated troponins Discontinue IV fluid Follow-up ABG and chest x-ray (2) Elevated troponin Current Visit: Yes Status: Acute (3) Pulmonary edema Current Visit: Yes Status: Acute (4) Hypoglycemia Current Visit: Yes Status: Acute Attending/Attestation - Attestation I have personally seen and examined this patient.: Yes I have fully participated in the care of the patient.: Yes I have reviewed all pertinent clinical information: Yes Notes (Text): 07/08/17 16:33 Patient seen and examined in the intensive care unit. Case discussed with house staff in the morning. Patient extubated after weaning trial Patient is alert and oriented 3 Continue antibiotics On Lasix at 40 mg twice a day Swallowing evaluation Worsening renal function noted
[2017-07-09] MEDS: (Novolin R) Insulin Human Regular 100 units/ml vial SC SCH ×4 (02:25→17:07)
[2017-07-09] MEDS: Piperacill/Tazo 2.25gm in Dex 2.25 GM/50 ML BAG IVPB SCH ×4 (05:20→22:15)
[2017-07-09 06:37] LABS: BASO % 0.3 % (0.0-2.0); EOS # 0.1 K/uL (0.0-0.7); EOS % 1.7 % (0.0-4.0); HEMATOCRIT 29.4 % (35.0-51.0); LYMPH # 0.6 K/uL (1.0-4.3); LYMPH % 9.9 % (20.0-40.0); MEAN CELL VOLUME 87.5 fL (80.0-94.0); MEAN CORPUSCULAR HEMOGLOBIN 27.7 pg (27.0-31.0); MEAN CORPUSCULAR HGB CONC 31.7 g/dL (33.0-37.0); MEAN PLATELET VOLUME 8.7 fL (7.2-11.7); MONO # 0.5 K/uL (0.0-0.8); MONO % 7.1 % (0.0-10.0); PLATELET COUNT 223 K/uL (130-400); RED CELL DISTRIBUTION WIDTH 18.6 % (11.5-14.5); WHITE BLOOD COUNT 6.5 K/uL (4.8-10.8)
[2017-07-09 06:50] LABS: ALB/GLOB RATIO 0.7 (1.0-2.1); BILIRUBIN,TOTAL 0.8 mg/dL (0.2-1.3); PHOSPHOROUS 6.3 mg/dL (2.5-4.5); TOTAL PROTEIN 7.7 g/dL (6.3-8.3)
[2017-07-09 06:51] LABS: CALCIUM 8.6 mg/dl (8.6-10.4); MAGNESIUM 2.8 mg/dL (1.6-2.3)
[2017-07-09 08:36] LABS: EOSINOPHIL 2 % (0-4); NEUTROPHIL 84 % (50-75); TOTAL CELLS COUNTED 100
[2017-07-09] MEDS: Multivitamin Vitamin B Complex (Nephro-Vite) Tab PO SCH (09:00)
--- NOTE | 2017-07-09 09:20 | CP.CCUPN ---
<Juan Flores - Last Filed: 07/09/17 16:29> CCU Objective - Vital Signs / Intake & Output Vital Signs (Last 4 hours): Vital Signs Pulse Resp BP Pulse Ox 07/09/17 15:00 91 H 21 166/92 H 99 07/09/17 14:00 88 20 149/99 H 99 07/09/17 13:00 90 19 176/98 H 98 07/09/17 12:56 176/98 H Intake and Output (Last 8hrs): Intake & Output 07/09/17 07/09/17 07/09/17 06:59 14:59 22:59 Intake Total 50 330 0 Output Total 825 60 Balance -775 270 0 Weight 200 lb 200 lb 8 oz Intake: Intake, IV Amount 50 100 Right Distal Port 100 Internal Jugular Right Medial Port 50 Internal Jugular Oral 230 0 Output: Urine 825 60 Urethral ([place]) 825 60 - Medications Active Medications: Active Medications Generic Name Dose Route Start Last Admin Trade Name Freq PRN Reason Stop Dose Admin Acetaminophen 650 mg 07/05/17 16:02 07/06/17 11:58 Tylenol 650mg/20.3ml Solution Ud PO 650 mg Q6 PRN Administration Fever 100.6 and above Albuterol/Ipratropium 3 ml 07/09/17 14:00 Duoneb 3 Mg/0.5 Mg (3 Ml) Ud INH RQ6 RANDOLPH Aspirin 81 mg 07/07/17 10:00 07/09/17 09:28 Aspirin Chewable PO 81 mg DAILY RANDOLPH Administration Epoetin Pieter 10,000 unit 07/07/17 10:00 07/09/17 09:43 Procrit SC 10,000 unit TTS RANDOLPH Administration Famotidine 20 mg 07/03/17 11:00 07/09/17 09:29 Pepcid IVP 20 mg DAILY RANDOLPH Administration Ferric Sodium Gluconate Complex 125 mg 07/07/17 23:20 07/09/17 09:27 Ferrlecit IVPB 07/15/17 23:21 125 mg DAILY RANDOLPH Administration Furosemide 40 mg 07/09/17 12:15 07/09/17 12:56 Lasix PO 40 mg DAILY RANDOLPH Administration Heparin Sodium (Porcine) 5,000 units 07/05/17 22:00 07/09/17 10:00 Heparin SC 5,000 units Q12 RANDOLPH Administration Hydralazine HCl 10 mg 07/03/17 11:04 07/09/17 10:49 Apresoline IVP 10 mg Q6H RANDOLPH Administration Piperacillin Sod/Tazobactam Sod 2.25 gm in 50 mls @ 100 mls/hr 07/05/17 17:15 07/09/17 10:48 Zosyn 2.25 Gm Iv Premix IVPB 100 mls/hr Q6H RANDOLPH Administration Insulin Human Regular 0 unit 07/05/17 18:00 07/09/17 12:46 Novolin R SC 2 unit Q6H RANDOLPH Administration Protocol Losartan Potassium 50 mg 07/05/17 10:00 07/06/17 09:34 Cozaar PO 50 mg BID RANDOLPH Administration Metoprolol Tartrate 25 mg 07/03/17 10:00 07/09/17 09:28 Lopressor PO 25 mg BID RANDOLPH Administration Rosuvastatin Calcium 10 mg 07/03/17 22:00 07/08/17 21:14 Crestor PO 10 mg HS RANDOLPH Administration Vitamin B Complex/Vit C/Folic Acid 1 tab 07/07/17 10:00 07/09/17 09:00 Nephro-Lc PO 1 tab 0800 RANDOLPH Administration - Patient Studies Lab Studies: Microbiology Studies 07/05/17 16:00 Blood Culture - Preliminary Blood-Venous NO GROWTH AFTER 3 DAYS 07/05/17 15:45 Blood Culture - Preliminary Blood-Venous NO GROWTH AFTER 3 DAYS Lab Studies 07/09/17 07/09/17 07/09/17 Range/Units 11:57 06:23 06:23 WBC 6.5 (4.8-10.8) K/uL RBC 3.35 L (4.40-5.90) Mil/uL Hgb 9.3 L (12.0-18.0) g/dL Hct 29.4 L (35.0-51.0) % MCV 87.5 (80.0-94.0) fL MCH 27.7 (27.0-31.0) pg MCHC 31.7 L (33.0-37.0) g/dL RDW 18.6 H (11.5-14.5) % Plt Count 223 (130-400) K/uL MPV 8.7 (7.2-11.7) fL Neut % (Auto) 81.0 H (50.0-75.0) % Lymph % (Auto) 9.9 L (20.0-40.0) % [place] % (Auto) 7.1 (0.0-10.0) % Eos % (Auto) 1.7 (0.0-4.0) % Baso % (Auto) 0.3 (0.0-2.0) % Neut # 5.2 (1.8-7.0) K/uL Lymph # 0.6 L (1.0-4.3) K/uL [place] # 0.5 (0.0-0.8) K/uL Eos # 0.1 (0.0-0.7) K/uL Baso # 0.0 (0.0-0.2) K/uL Neutrophils % (Manual) 84 H (50-75) % Band Neutrophils % 3 H (0-2) % Lymphocytes % (Manual) 5 L (20-40) % Monocytes % (Manual) 6 (0-10) % Eosinophils % (Manual) 2 (0-4) % Platelet Estimate Normal (NORMAL) Hypochromasia (manual) Slight Anisocytosis (manual) Slight Sodium 142 (132-148) mmol/L Potassium 4.0 (3.6-5.2) mmol/L Chloride 101 (98-107) mmol/L Carbon Dioxide 32 H (22-30) mmol/L Anion Gap 13 (10-20) BUN 51 H (9-20) mg/dL Creatinine 2.9 H (0.8-1.5) mg/dL Est GFR ( Amer) 27 Est GFR (Non-Af Amer) 22 POC Glucose (mg/dL) 200 H (65-110) mg/dL Random Glucose 139 H (75-110) mg/dL Calcium 8.6 (8.6-10.4) mg/dl Phosphorus 6.3 H (2.5-4.5) mg/dL Magnesium 2.8 H (1.6-2.3) mg/dL Total Bilirubin 0.8 (0.2-1.3) mg/dL AST 21 (17-59) U/L ALT 27 (21-72) U/L Alkaline Phosphatase 148 H (38-126) U/L Total Protein 7.7 (6.3-8.3) g/dL Albumin 3.2 L (3.5-5.0) g/dL Globulin 4.5 H (2.2-3.9) gm/dL Albumin/Globulin Ratio 0.7 L (1.0-2.1) 07/09/17 07/08/17 07/08/17 Range/Units 05:06 23:54 17:39 WBC (4.8-10.8) K/uL RBC (4.40-5.90) Mil/uL Hgb (12.0-18.0) g/dL Hct (35.0-51.0) % MCV (80.0-94.0) fL MCH (27.0-31.0) pg MCHC (33.0-37.0) g/dL RDW (11.5-14.5) % Plt Count (130-400) K/uL MPV (7.2-11.7) fL Neut % (Auto) (50.0-75.0) % Lymph % (Auto) (20.0-40.0) % [place] % (Auto) (0.0-10.0) % Eos % (Auto) (0.0-4.0) % Baso % (Auto) (0.0-2.0) % Neut # (1.8-7.0) K/uL Lymph # (1.0-4.3) K/uL [place] # (0.0-0.8) K/uL Eos # (0.0-0.7) K/uL Baso # (0.0-0.2) K/uL Neutrophils % (Manual) (50-75) % Band Neutrophils % (0-2) % Lymphocytes % (Manual) (20-40) % Monocytes % (Manual) (0-10) % Eosinophils % (Manual) (0-4) % Platelet Estimate (NORMAL) Hypochromasia (manual) Anisocytosis (manual) Sodium (132-148) mmol/L Potassium (3.6-5.2) mmol/L Chloride (98-107) mmol/L Carbon Dioxide (22-30) mmol/L Anion Gap (10-20) BUN (9-20) mg/dL Creatinine (0.8-1.5) mg/dL Est GFR ( Amer) Est GFR (Non-Af Amer) POC Glucose (mg/dL) 221 H 144 H 162 H (65-110) mg/dL Random Glucose (75-110) mg/dL Calcium (8.6-10.4) mg/dl Phosphorus (2.5-4.5) mg/dL Magnesium (1.6-2.3) mg/dL Total Bilirubin (0.2-1.3) mg/dL AST (17-59) U/L ALT (21-72) U/L Alkaline Phosphatase (38-126) U/L Total Protein (6.3-8.3) g/dL Albumin (3.5-5.0) g/dL Globulin (2.2-3.9) gm/dL Albumin/Globulin Ratio (1.0-2.1) Laboratory Results - last 24 hr 07/08/17 07/08/17 07/09/17 17:39 23:54 05:06 WBC RBC Hgb Hct MCV MCH MCHC RDW Plt Count MPV Neut % (Auto) Lymph % (Auto) [place] % (Auto) Eos % (Auto) Baso % (Auto) Neut # Lymph # [place] # Eos # Baso # Neutrophils % (Manual) Band Neutrophils % Lymphocytes % (Manual) Monocytes % (Manual) Eosinophils % (Manual) Platelet Estimate Hypochromasia (manual) Anisocytosis (manual) Sodium Potassium Chloride Carbon Dioxide Anion Gap BUN Creatinine Est GFR ( Amer) Est GFR (Non-Af Amer) POC Glucose (mg/dL) 162 H 144 H 221 H Random Glucose Calcium Phosphorus Magnesium Total Bilirubin AST ALT Alkaline Phosphatase Total Protein Albumin Globulin Albumin/Globulin Ratio 07/09/17 07/09/17 07/09/17 06:23 06:23 11:57 WBC 6.5 RBC 3.35 L Hgb 9.3 L Hct 29.4 L MCV 87.5 MCH 27.7 MCHC 31.7 L RDW 18.6 H Plt Count 223 MPV 8.7 Neut % (Auto) 81.0 H Lymph % (Auto) 9.9 L [place] % (Auto) 7.1 Eos % (Auto) 1.7 Baso % (Auto) 0.3 Neut # 5.2 Lymph # 0.6 L [place] # 0.5 Eos # 0.1 Baso # 0.0 Neutrophils % (Manual) 84 H Band Neutrophils % 3 H Lymphocytes % (Manual) 5 L Monocytes % (Manual) 6 Eosinophils % (Manual) 2 Platelet Estimate Normal Hypochromasia (manual) Slight Anisocytosis (manual) Slight Sodium 142 Potassium 4.0 Chloride 101 Carbon Dioxide 32 H Anion Gap 13 BUN 51 H Creatinine 2.9 H Est GFR ( Amer) 27 Est GFR (Non-Af Amer) 22 POC Glucose (mg/dL) 200 H Random Glucose 139 H Calcium 8.6 Phosphorus 6.3 H Magnesium 2.8 H Total Bilirubin 0.8 AST 21 ALT 27 Alkaline Phosphatase 148 H Total Protein 7.7 Albumin 3.2 L Globulin 4.5 H Albumin/Globulin Ratio 0.7 L Critical Care Progress Note - Nutrition Nutrition: Nutrition Category Date Time Status Heart Healthy Diet [DIET] Diets 07/09/17 Lunch Active Attending/Attestation - Attestation I have personally seen and examined this patient.: Yes I have fully participated in the care of the patient.: Yes I have reviewed all pertinent clinical information: Yes Notes (Text): 07/09/17 16:27 I have seen and examined the patient. Medical records, lab studies, and imaging were reviewed by me and a management plan was formulated on multidisciplinary rounds with resident Dr. Rodriguez. I agree with their above documented assessment and plan. Patient is breathing well. Continue diuresis, decreasing to oral dosage for continued treatment of patient's Heart Failure with preserved EF. PAtient is clinically stable for downgrade to floors. Critical Care Time 35 minutes. Multi-disciplinary rounds were performed with house staff, nursing, speech therapy, respiratory therapy, pharmacy and nutrition with integrated input from the primary team/attending and other consulting services. The documented time is cumulative and includes review of patient data/exams/labs/chart review and examination of the patient on rounds and throughout the day; time is exclusive of any procedures or teaching time. 07/09/17 16:29 07/09/17 16:29 <Gwen Rodriguez E - Last Filed: 07/09/17 19:10> CCU Subjective - Physician Review Subjective (Free Text): Patient was seen and examined at bedside. Patient is alert, awake and oriented. Patient's was at bedside. Patient denies any discomfort; chest pain, palpitations, SOB, fever, chills, nausea, vomiting, abdominal pain but admits to right great toe pain due to gout exacerbation. CCU Objective - Vital Signs / Intake & Output Vital Signs (Last 4 hours): Vital Signs Temp Pulse Resp BP Pulse Ox 07/09/17 08:00 98.1 F 88 22 176/95 H 98 07/09/17 07:00 95 H 21 98 07/09/17 06:49 90 22 177/85 H 98 07/09/17 06:00 92 H 13 95 07/09/17 05:49 89 24 168/91 H 93 L Intake and Output (Last 8hrs): Intake & Output 07/08/17 07/09/17 07/09/17 22:59 06:59 14:59 Intake Total 50 50 0 Output Total 785 825 60 Balance -735 -775 -60 Weight 200 lb Intake: Intake, IV Amount 50 50 Right Medial Port 50 50 Internal Jugular Oral 0 Output: Urine 785 825 60 Urethral ([place]) 785 825 60 - Physical Exam Head: Positive for: Atraumatic, Normocephalic Conjunctiva: Positive for: Normal Mouth: Positive for: Moist Mucous Membranes Neck: Positive for: Normal Range of Motion Respiratory/Chest: Positive for: Good Air Exchange, Rales. Negative for: Accessory Muscle Use Cardiovascular: Positive for: Regular Rate and Rhythm, Normal S1, S2 Abdomen: Positive for: Distention, Normal Bowel Sounds. Negative for: Tenderness, Peritoneal Signs, Rebound, Guarding Upper Extremity: Positive for: Normal Inspection Lower Extremity: Positive for: Swelling Neurological: Positive for: GCS=15, Speech Normal Skin: Positive for: Normal Color Psychiatric: Positive for: Alert. Negative for: Oriented x 3 - Medications Active Medications: Active Medications Generic Name Dose Route Start Last Admin Trade Name Claudioq PRN Reason Stop Dose Admin Acetaminophen 650 mg 07/05/17 16:02 07/06/17 11:58 Tylenol 650mg/20.3ml Solution Ud PO 650 mg Q6 PRN Administration Fever 100.6 and above Aspirin 81 mg 07/07/17 10:00 07/08/17 09:27 Aspirin Chewable PO 81 mg DAILY RANDOLPH Administration Epoetin Pieter 10,000 unit 07/07/17 10:00 07/07/17 10:20 Procrit SC 10,000 unit TTS RANDOLPH Administration Famotidine 20 mg 07/03/17 11:00 07/08/17 09:29 Pepcid IVP 20 mg DAILY RANDOLPH Administration Ferric Sodium Gluconate Complex 125 mg 07/07/17 23:20 07/08/17 09:28 Ferrlecit IVPB 07/15/17 23:21 125 mg DAILY RANDOLPH Administration Furosemide 40 mg 07/08/17 12:51 07/08/17 21:14 Lasix IVP 40 mg Q12 RANDOLPH Administration Heparin Sodium (Porcine) 5,000 units 07/05/17 22:00 07/08/17 21:14 Heparin SC 5,000 units Q12 RANDOLPH Administration Hydralazine HCl 10 mg 07/03/17 11:04 07/09/17 05:19 Apresoline IVP 10 mg Q6H RANDOLPH Administration Piperacillin Sod/Tazobactam Sod 2.25 gm in 50 mls @ 100 mls/hr 07/05/17 17:15 07/09/17 05:20 Zosyn 2.25 Gm Iv Premix IVPB 100 mls/hr Q6H RANDOLPH Administration Propofol 1,000 mg in 100 mls @ 2.79 mls/hr 07/06/17 16:13 07/08/17 08:00 Diprivan IV 0 mcg/kg/min .Q24H PRN 0 mls/hr TITRATE PER MD ORDER Titration Protocol 5 MCG/KG/MIN Insulin Human Regular 0 unit 07/05/17 18:00 07/09/17 05:20 Novolin R SC Not Given Q6H [facility] Protocol Losartan Potassium 50 mg 07/05/17 10:00 07/06/17 09:34 Cozaar PO 50 mg BID RANDOLPH Administration Metoprolol Tartrate 25 mg 07/03/17 10:00 07/08/17 18:17 Lopressor PO 25 mg BID RANDOLPH Administration Rosuvastatin Calcium 10 mg 07/03/17 22:00 07/08/17 21:14 Crestor PO 10 mg HS RANDOLPH Administration Vitamin B Complex/Vit C/Folic Acid 1 tab 07/07/17 10:00 07/08/17 09:29 Nephro-Lc PO 1 tab 0800 RANDOLPH Administration - Patient Studies Lab Studies: Microbiology Studies 07/05/17 16:00 Blood Culture - Preliminary Blood-Venous NO GROWTH AFTER 3 DAYS 07/05/17 15:45 Blood Culture - Preliminary Blood-Venous NO GROWTH AFTER 3 DAYS 07/05/17 16:04 Urine Culture - Final Urine,[place] Coagulase Neg Staphylococcus Lab Studies 1007/09/17 07/09/17 Range/Units 06:23 06:23 05:06 WBC 6.5 (4.8-10.8) K/uL RBC 3.35 L (4.40-5.90) Mil/uL Hgb 9.3 L (12.0-18.0) g/dL Hct 29.4 L (35.0-51.0) % MCV 87.5 (80.0-94.0) fL MCH 27.7 (27.0-31.0) pg MCHC 31.7 L (33.0-37.0) g/dL RDW 18.6 H (11.5-14.5) % Plt Count 223 (130-400) K/uL MPV 8.7 (7.2-11.7) fL Neut % (Auto) 81.0 H (50.0-75.0) % Lymph % (Auto) 9.9 L (20.0-40.0) % [place] % (Auto) 7.1 (0.0-10.0) % Eos % (Auto) 1.7 (0.0-4.0) % Baso % (Auto) 0.3 (0.0-2.0) % Neut # 5.2 (1.8-7.0) K/uL Lymph # 0.6 L (1.0-4.3) K/uL [place] # 0.5 (0.0-0.8) K/uL Eos # 0.1 (0.0-0.7) K/uL Baso # 0.0 (0.0-0.2) K/uL Neutrophils % (Manual) 84 H (50-75) % Band Neutrophils % 3 H (0-2) % Lymphocytes % (Manual) 5 L (20-40) % Monocytes % (Manual) 6 (0-10) % Eosinophils % (Manual) 2 (0-4) % Platelet Estimate Normal (NORMAL) Hypochromasia (manual) Slight Anisocytosis (manual) Slight Sodium 142 (132-148) mmol/L Potassium 4.0 (3.6-5.2) mmol/L Chloride 101 (98-107) mmol/L Carbon Dioxide 32 H (22-30) mmol/L Anion Gap 13 (10-20) BUN 51 H (9-20) mg/dL Creatinine 2.9 H (0.8-1.5) mg/dL Est GFR ( Amer) 27 Est GFR (Non-Af Amer) 22 POC Glucose (mg/dL) 221 H (65-110) mg/dL Random Glucose 139 H (75-110) mg/dL Calcium 8.6 (8.6-10.4) mg/dl Phosphorus 6.3 H (2.5-4.5) mg/dL Magnesium 2.8 H (1.6-2.3) mg/dL Total Bilirubin 0.8 (0.2-1.3) mg/dL AST 21 (17-59) U/L ALT 27 (21-72) U/L Alkaline Phosphatase 148 H (38-126) U/L Total Protein 7.7 (6.3-8.3) g/dL Albumin 3.2 L (3.5-5.0) g/dL Globulin 4.5 H (2.2-3.9) gm/dL Albumin/Globulin Ratio 0.7 L (1.0-2.1) 07/08/17 07/08/17 07/08/17 Range/Units 23:54 17:39 11:45 WBC (4.8-10.8) K/uL RBC (4.40-5.90) Mil/uL Hgb (12.0-18.0) g/dL Hct (35.0-51.0) % MCV (80.0-94.0) fL MCH (27.0-31.0) pg MCHC (33.0-37.0) g/dL RDW (11.5-14.5) % Plt Count (130-400) K/uL MPV (7.2-11.7) fL Neut % (Auto) (50.0-75.0) % Lymph % (Auto) (20.0-40.0) % [place] % (Auto) (0.0-10.0) % Eos % (Auto) (0.0-4.0) % Baso % (Auto) (0.0-2.0) % Neut # (1.8-7.0) K/uL Lymph # (1.0-4.3) K/uL [place] # (0.0-0.8) K/uL Eos # (0.0-0.7) K/uL Baso # (0.0-0.2) K/uL Neutrophils % (Manual) (50-75) % Band Neutrophils % (0-2) % Lymphocytes % (Manual) (20-40) % Monocytes % (Manual) (0-10) % Eosinophils % (Manual) (0-4) % Platelet Estimate (NORMAL) Hypochromasia (manual) Anisocytosis (manual) Sodium (132-148) mmol/L Potassium (3.6-5.2) mmol/L Chloride (98-107) mmol/L Carbon Dioxide (22-30) mmol/L Anion Gap (10-20) BUN (9-20) mg/dL Creatinine (0.8-1.5) mg/dL Est GFR ( Amer) Est GFR (Non-Af Amer) POC Glucose (mg/dL) 144 H 162 H 153 H (65-110) mg/dL Random Glucose (75-110) mg/dL Calcium (8.6-10.4) mg/dl Phosphorus (2.5-4.5) mg/dL Magnesium (1.6-2.3) mg/dL Total Bilirubin (0.2-1.3) mg/dL AST (17-59) U/L ALT (21-72) U/L Alkaline Phosphatase (38-126) U/L Total Protein (6.3-8.3) g/dL Albumin (3.5-5.0) g/dL Globulin (2.2-3.9) gm/dL Albumin/Globulin Ratio (1.0-2.1) Laboratory Results - last 24 hr 07/08/17 07/08/17 07/08/17 11:45 17:39 23:54 WBC RBC Hgb Hct MCV MCH MCHC RDW Plt Count MPV Neut % (Auto) Lymph % (Auto) [place] % (Auto) Eos % (Auto) Baso % (Auto) Neut # Lymph # [place] # Eos # Baso # Neutrophils % (Manual) Band Neutrophils % Lymphocytes % (Manual) Monocytes % (Manual) Eosinophils % (Manual) Platelet Estimate Hypochromasia (manual) Anisocytosis (manual) Sodium Potassium Chloride Carbon Dioxide Anion Gap BUN Creatinine Est GFR ( Amer) Est GFR (Non-Af Amer) POC Glucose (mg/dL) 153 H 162 H 144 H Random Glucose Calcium Phosphorus Magnesium Total Bilirubin AST ALT Alkaline Phosphatase Total Protein Albumin Globulin Albumin/Globulin Ratio 07/09/17 07/09/17 07/09/17 05:06 06:23 06:23 WBC 6.5 RBC 3.35 L Hgb 9.3 L Hct 29.4 L MCV 87.5 MCH 27.7 MCHC 31.7 L RDW 18.6 H Plt Count 223 MPV 8.7 Neut % (Auto) 81.0 H Lymph % (Auto) 9.9 L [place] % (Auto) 7.1 Eos % (Auto) 1.7 Baso % (Auto) 0.3 Neut # 5.2 Lymph # 0.6 L [place] # 0.5 Eos # 0.1 Baso # 0.0 Neutrophils % (Manual) 84 H Band Neutrophils % 3 H Lymphocytes % (Manual) 5 L Monocytes % (Manual) 6 Eosinophils % (Manual) 2 Platelet Estimate Normal Hypochromasia (manual) Slight Anisocytosis (manual) Slight Sodium 142 Potassium 4.0 Chloride 101 Carbon Dioxide 32 H Anion Gap 13 BUN 51 H Creatinine 2.9 H Est GFR ( Amer) 27 Est GFR (Non-Af Amer) 22 POC Glucose (mg/dL) 221 H Random Glucose 139 H Calcium 8.6 Phosphorus 6.3 H Magnesium 2.8 H Total Bilirubin 0.8 AST 21 ALT 27 Alkaline Phosphatase 148 H Total Protein 7.7 Albumin 3.2 L Globulin 4.5 H Albumin/Globulin Ratio 0.7 L Fingerstick Blood Sugar Results: 221 Review of Systems - Constitutional Constitutional: absent: Fever, Chills, Weakness - EENT Eyes: absent: Blurred Vision, Change in Vision Ears: absent: Dizziness - Cardiovascular Cardiovascular: absent: Chest Pain, Diaphoresis, Dyspnea, Lightheadedness, Syncope - Respiratory Respiratory: absent: Cough, Dyspnea, Wheezing - Gastrointestinal Gastrointestinal: absent: Abdominal Pain, Nausea, Vomiting - Neurological Neurological: absent: Headaches, Paresthesias, Tingling, Weakness - Endocrine Endocrine: absent: Fatigue, Palpitations Critical Care Progress Note - Ventilator Checklist Daily Sedation Vacation: No Daily Assessment of Readiness to Wean: No Daily Spontaneous Breathing Trial: No PUD Prophalyxis: Yes DVT Prophylaxis: Yes - Nutrition Nutrition: Nutrition Category Date Time Status NPO Diet [DIET] Diets 07/06/17 Breakfast Active Assessment/Plan - Assessment and Plan (Free Text) Assessment: 67 M with past medical history of for Diabetes, CAD, CABG, Hypercholesterolemia , and TIA, who was noted by his to be lethargic, peripheral edema, difficulty with breathing. Patient was seen by his PMD, who referred him to an urgent care or ER. Patient was found to be hypertensive, lethargic hypoglycemic , with retaining CO2, needing very minimal O2. Today: Plan: Transfer to telemetry Plan: Neuro: extubated, Alert, awake, oriented and agitated Cardio: Hypertensive, CHF exacerbation, Hx of CAD/CABG, HLD Mildly elevated Troponin I: 0.1250--->0.1030--->0.1320 Manager Trust Consult, Dr. Butler----> Help appreciated * Management as per recommendation Medication/Management: * Lopressor 25mg PO BID * Hydralazine 10mg IVP Q6H (Hold with SBP <120mm Hg) * Crestor 10mg PO HS * Aspirin 81mg PO daily Pulm: Respiratory distress secondary to possible CHF exacerbation Chest X-ray (07/06/17): Moderate to severe venous congestion with prominent confluent bibasilar airspace opacities and small bilateral pleural effusions and Nodular consolidative changes at the right lung base Medication/Management: * Intubated * Lasix 40mg PO daily GI: No acute issues Endo: Hx of Diabetes Medication/Management: * Accuchecks * ISS (Medium dose protocol) Heme: Anemia Medication/Management: * Ferric sodium gluconate 125mg IVPB daily * Epocrit 10,000 unit SC TTS Renal: DAWN Supervisor Functional Testing, Dr. Jones----> Help appreciated * Management as per recommendation MSK: Acute gout exacerbation, hx of GOUT Medication/Management: * Allopurinol 100mg PO daily ( Discontinued 07/06/17) * Colchicine 0.6mg PO ONCE ID: Fever (Tmax: 100.6), No leukocytosis Sputum culture: Gram stain ( Few Gram Positive Cocci), pending culture Chest X-ray (07/06/17): Moderate to severe venous congestion with prominent confluent bibasilar airspace opacities and small bilateral pleural effusions and Nodular consolidative changes at the right lung base Medication/Management: * Zosyn 2.25 gm IV premix Q6H (started 07/05/17) * Tylenol 650mg PO Q6 prn for fever> 100.6 Prophylaxis: DVT: SCDS contraindicated due to B/L LE edema. Heparin 5,000 units SC Q12H GI: Pepcid 20mg IVP daily Swallow evaluation: Passed, thus, Heart healthy diet with moderate carbohydrate and low sodium Aspiration precautions Transfer to telemetry
[2017-07-09] MEDS: Ferric Sodium Gluconat Complex 62.5 mg/5 ml Vial IVPB SCH (09:27)
[2017-07-09] MEDS: EPOETIN ALFA 10,000 UNIT/ML ML SC SCH (09:43)
--- NOTE | 2017-07-09 10:28 | PN ---
DATE: 07/09/2017 NEUROLOGICAL PROBLEM: Metabolic encephalopathy. PHYSICAL EXAMINATION: VITAL SIGNS : Blood pressure 177/85, mean arterial pressure of 115, respiratory rate 16, temperature afebrile, and pulse rate 95 and regular. The patient is examined in the presence of his , status post extubation. The patient is more awake, alert. Following commands. Speech is intact. Still is having throat irritation secondary to his tube placed in the past. The patient back to his mental status as usual. Moves all 4 extremities. Neurologically, he is stable. No further workup is needed while he is in the hospital; however, the patient definitely need polysomnogram, which can be done as an outpatient to get a proper treatment for his either obstructive sleep apnea or obesity hypoventilation syndrome. Arslan Carl MD
--- NOTE | 2017-07-09 10:31 | RAD ---
HISTORY: s/p intubation COMPARISON: 07/08/2017 FINDINGS: Previously noted ETT has been removed. No change right IJ central venous line LUNGS: Previously noted mild vascular congestive changes improved. There appears to be small small residual bilateral lower lobe alveolar-type infiltrates and bilateral effusions right larger than left. PLEURA: As above. No apparent pneumothorax. . CARDIOVASCULAR: Sternotomy wires and CABG clips again noted. Cardiomegaly. OSSEOUS STRUCTURES: No significant abnormalities. VISUALIZED UPPER ABDOMEN: Normal. OTHER FINDINGS: None. IMPRESSION: Interval removal ETT. No change right-sided IJ central venous line with tip in the SVC. Mild improvement pulmonary vascular congestion with residual but also improved patchy bilateral lower lobe alveolar-type infiltrates and small bilateral effusions
--- NOTE | 2017-07-09 16:17 | CP.PCM.PN ---
Subjective - Date & Time of Evaluation Date of Evaluation: 07/09/17 Time of Evaluation: 12:30 - Subjective Subjective: Patient seen in ICU- extubated sitting in chair- talking to reports issues of- very suspicious of her and becoming uncooperative , restless otherwise breathing okay . coughing Objective - Vital Signs/Intake and Output Vital Signs (last 24 hours): Temp Pulse Resp BP Pulse Ox 98.6 F 91 H 21 166/92 H 99 07/09/17 12:00 07/09/17 15:00 07/09/17 15:00 07/09/17 15:00 07/09/17 15:00 Intake and Output: 07/09/17 07/09/17 06:59 18:59 Intake Total 50 330 Output Total 1160 60 Balance -1110 270 - Medications Medications: Current Medications Acetaminophen (Tylenol 650mg/20.3ml Solution Ud) 650 mg PO Q6 PRN PRN Reason: Fever 100.6 and above Last Admin: 07/06/17 11:58 Dose: 650 mg Albuterol/Ipratropium (Duoneb 3 Mg/0.5 Mg (3 Ml) Ud) 3 ml INH RQ6 [facility] Aspirin (Aspirin Chewable) 81 mg PO DAILY [facility] Last Admin: 07/09/17 09:28 Dose: 81 mg Epoetin Pieter (Procrit) 10,000 unit SC TTS [facility] Last Admin: 07/09/17 09:43 Dose: 10,000 unit Famotidine (Pepcid) 20 mg IVP DAILY [facility] Last Admin: 07/09/17 09:29 Dose: 20 mg Ferric Sodium Gluconate Complex (Ferrlecit) 125 mg IVPB DAILY [facility] Stop: 07/15/17 23:21 Last Admin: 07/09/17 09:27 Dose: 125 mg Furosemide (Lasix) 40 mg PO DAILY [facility] Last Admin: 07/09/17 12:56 Dose: 40 mg Heparin Sodium (Porcine) (Heparin) 5,000 units SC Q12 [facility] Last Admin: 07/09/17 10:00 Dose: 5,000 units Hydralazine HCl (Apresoline) 10 mg IVP Q6H [facility] Last Admin: 07/09/17 10:49 Dose: 10 mg Piperacillin Sod/Tazobactam Sod (Zosyn 2.25 Gm Iv Premix) 2.25 gm in 50 mls @ 100 mls/hr IVPB Q6H [facility] Last Admin: 07/09/17 10:48 Dose: 100 mls/hr Insulin Human Regular (Novolin R) 0 unit SC Q6H [facility] PRN Reason: Protocol Last Admin: 07/09/17 12:46 Dose: 2 unit Losartan Potassium (Cozaar) 50 mg PO BID [facility] Last Admin: 07/06/17 09:34 Dose: 50 mg Metoprolol Tartrate (Lopressor) 25 mg PO BID [facility] Last Admin: 07/09/17 09:28 Dose: 25 mg Rosuvastatin Calcium (Crestor) 10 mg PO HS [facility] Last Admin: 07/08/17 21:14 Dose: 10 mg Vitamin B Complex/Vit C/Folic Acid (Nephro-Lc) 1 tab PO 0800 [facility] Last Admin: 07/09/17 09:00 Dose: 1 tab - Labs Labs: 07/09/17 06:23 07/09/17 06:23 PT 13.6 SECONDS (9.7-12.2) H 07/06/17 06:28 INR 1.2 07/06/17 06:28 APTT 33 SECONDS (21-34) D 07/06/17 06:28 - Constitutional Appears: Non-toxic (post extubation) - Head Exam Head Exam: ATRAUMATIC, NORMOCEPHALIC - Eye Exam Eye Exam: absent: Nystagmus - ENT Exam ENT Exam: Mucous Membranes Moist - Respiratory Exam Respiratory Exam: Decreased Breath Sounds (but no rhonchi no congestion today ) , NORMAL BREATHING PATTERN - Cardiovascular Exam Cardiovascular Exam: REGULAR RHYTHM - GI/Abdominal Exam GI & Abdominal Exam: Soft, Normal Bowel Sounds. absent: Tenderness - Extremities Exam Extremities Exam: Pedal Edema - Neurological Exam Neurological Exam: Alert, Awake, Oriented x3 (was ambulatory ) - Psychiatric Exam Psychiatric exam: Normal Affect, Normal Mood (for being suspicious of up to the point of not being cooperative) - Skin Skin Exam: Intact, Normal Color Assessment and Plan - Assessment and Plan (Free Text) Assessment: Patient with CRI with fluid overload- on lasix , monitoring renal on case Post respiratory distress post intubation- breathing good CAD -ogoing evalaution Psycholgical paranoia- to the point of becoming uncooperative - discussion with psyche Hypertension DM- off medication further monitoring
--- NOTE | 2017-07-09 17:12 | CP.PCM.PN ---
Objective - Vital Signs/Intake and Output Vital Signs (last 24 hours): Temp Pulse Resp BP Pulse Ox 98.6 F 91 H 21 180/90 H 99 07/09/17 12:00 07/09/17 15:00 07/09/17 15:00 07/09/17 17:10 07/09/17 15:00 Intake and Output: 07/09/17 07/09/17 06:59 18:59 Intake Total 50 330 Output Total 1160 60 Balance -1110 270 - Medications Medications: Current Medications Acetaminophen (Tylenol 650mg/20.3ml Solution Ud) 650 mg PO Q6 PRN PRN Reason: Fever 100.6 and above Last Admin: 07/06/17 11:58 Dose: 650 mg Albuterol/Ipratropium (Duoneb 3 Mg/0.5 Mg (3 Ml) Ud) 3 ml INH RQ6 [facility] Aspirin (Aspirin Chewable) 81 mg PO DAILY [facility] Last Admin: 07/09/17 09:28 Dose: 81 mg Epoetin Pieter (Procrit) 10,000 unit SC TTS [facility] Last Admin: 07/09/17 09:43 Dose: 10,000 unit Famotidine (Pepcid) 20 mg IVP DAILY [facility] Last Admin: 07/09/17 09:29 Dose: 20 mg Ferric Sodium Gluconate Complex (Ferrlecit) 125 mg IVPB DAILY [facility] Stop: 07/15/17 23:21 Last Admin: 07/09/17 09:27 Dose: 125 mg Furosemide (Lasix) 40 mg PO DAILY [facility] Last Admin: 07/09/17 12:56 Dose: 40 mg Heparin Sodium (Porcine) (Heparin) 5,000 units SC Q12 [facility] Last Admin: 07/09/17 10:00 Dose: 5,000 units Hydralazine HCl (Apresoline) 10 mg IVP Q6H [facility] Last Admin: 07/09/17 17:10 Dose: 10 mg Piperacillin Sod/Tazobactam Sod (Zosyn 2.25 Gm Iv Premix) 2.25 gm in 50 mls @ 100 mls/hr IVPB Q6H [facility] Last Admin: 07/09/17 10:48 Dose: 100 mls/hr Insulin Human Regular (Novolin R) 0 unit SC Q6H [facility] PRN Reason: Protocol Last Admin: 07/09/17 17:07 Dose: 3 unit Losartan Potassium (Cozaar) 50 mg PO BID [facility] Last Admin: 07/06/17 09:34 Dose: 50 mg Metoprolol Tartrate (Lopressor) 25 mg PO BID [facility] Last Admin: 07/09/17 17:10 Dose: 25 mg Rosuvastatin Calcium (Crestor) 10 mg PO HS [facility] Last Admin: 07/08/17 21:14 Dose: 10 mg Vitamin B Complex/Vit C/Folic Acid (Nephro-Lc) 1 tab PO 0800 [facility] Last Admin: 07/09/17 09:00 Dose: 1 tab - Labs Labs: 07/09/17 06:23 07/09/17 06:23 PT 13.6 SECONDS (9.7-12.2) H 07/06/17 06:28 INR 1.2 07/06/17 06:28 APTT 33 SECONDS (21-34) D 07/06/17 06:28 Assessment and Plan (1) Hypercapnic respiratory failure, chronic Status: Acute (2) Elevated troponin Status: Acute (3) Pulmonary edema Status: Acute (4) Hypoglycemia Status: Acute
[2017-07-09] MEDS: Albuterol-Ipratrop 3 mg / 0.5 (3 ml) UD INH SCH (19:06)
--- NOTE | 2017-07-09 20:27 | CP.PCM.PN ---
Subjective - Date & Time of Evaluation Date of Evaluation: 07/09/17 Time of Evaluation: 20:27 - Subjective Subjective: pt is seen and examined, follow up consult is dictated #[id number] Objective - Vital Signs/Intake and Output Vital Signs (last 24 hours): Temp Pulse Resp BP Pulse Ox 98 F 83 20 154/91 H 98 07/09/17 16:00 07/09/17 19:09 07/09/17 19:00 07/09/17 19:00 07/09/17 19:00 Intake and Output: 07/09/17 07/10/17 18:59 06:59 Intake Total 610 0 Output Total 1710 Balance -1100 0 - Medications Medications: Current Medications Acetaminophen (Tylenol 650mg/20.3ml Solution Ud) 650 mg PO Q6 PRN PRN Reason: Fever 100.6 and above Last Admin: 07/06/17 11:58 Dose: 650 mg Albuterol/Ipratropium (Duoneb 3 Mg/0.5 Mg (3 Ml) Ud) 3 ml INH RQ6 [facility] Last Admin: 07/09/17 19:06 Dose: 3 ml Aspirin (Aspirin Chewable) 81 mg PO DAILY [facility] Last Admin: 07/09/17 09:28 Dose: 81 mg Epoetin Pieter (Procrit) 10,000 unit SC TTS [facility] Last Admin: 07/09/17 09:43 Dose: 10,000 unit Famotidine (Pepcid) 20 mg IVP DAILY [facility] Last Admin: 07/09/17 09:29 Dose: 20 mg Ferric Sodium Gluconate Complex (Ferrlecit) 125 mg IVPB DAILY [facility] Stop: 07/15/17 23:21 Last Admin: 07/09/17 09:27 Dose: 125 mg Furosemide (Lasix) 40 mg PO DAILY [facility] Last Admin: 07/09/17 12:56 Dose: 40 mg Heparin Sodium (Porcine) (Heparin) 5,000 units SC Q12 [facility] Last Admin: 07/09/17 10:00 Dose: 5,000 units Hydralazine HCl (Apresoline) 10 mg IVP Q6H [facility] Last Admin: 07/09/17 17:10 Dose: 10 mg Piperacillin Sod/Tazobactam Sod (Zosyn 2.25 Gm Iv Premix) 2.25 gm in 50 mls @ 100 mls/hr IVPB Q6H [facility] Last Admin: 10/19/17 17:12 Dose: 100 mls/hr Insulin Human Regular (Novolin R) 0 unit SC Q6H [facility] PRN Reason: Protocol Last Admin: 07/09/17 17:07 Dose: 3 unit Lorazepam (Ativan) 1 mg PO Q6H PRN PRN Reason: Anxiety Losartan Potassium (Cozaar) 50 mg PO BID [facility] Last Admin: 07/06/17 09:34 Dose: 50 mg Metoprolol Tartrate (Lopressor) 25 mg PO BID [facility] Last Admin: 07/09/17 17:10 Dose: 25 mg Rosuvastatin Calcium (Crestor) 10 mg PO HS [facility] Last Admin: 07/08/17 21:14 Dose: 10 mg Vitamin B Complex/Vit C/Folic Acid (Nephro-Lc) 1 tab PO 0800 [facility] Last Admin: 07/09/17 09:00 Dose: 1 tab - Labs Labs: 07/09/17 06:23 07/09/17 06:23 PT 13.6 SECONDS (9.7-12.2) H 07/06/17 06:28 INR 1.2 07/06/17 06:28 APTT 33 SECONDS (21-34) D 07/06/17 06:28
--- NOTE | 2017-07-09 21:38 | CON ---
PSYCHIATRIC CONSULTATION CHIEF COMPLAINT AND REASON FOR CONSULTATION: The patient is referred by Dr. Paola Adams. The patient has chronic paranoid delusion that his is cheating him. The patient has been constantly following his , constantly looking for her and making accusations that his is having an affair. HISTORY OF PRESENT ILLNESS: Case is a 67-year-old male of [place] descent with history of diabetes, hypertension, history of CABG, history of CRI, history of TIA. The patient was brought in here for respiratory problems, change in mental status with low blood sugar. The patient was noted to have in the emergency room fluid overload and was admitted to the ICU. The patient was referred for co-management as the patient has been noted to be constantly looking for his because he thinks of cheating and of infidelity. The patient is also very anxious and restless and he was exhibiting some changes of behavior. According to the who gave some collateral information, the patient has been having this problem for the last 6 years, especially when he retired. The patient has been stalking his at the job, the patient has been calling the at least 10 times a day checking her and gets upset if the do not answer the phone, he has been also stalking her and gets very anxious when the is out of sight for few minutes. The patient also reports that he has been at times at home, he has been threatening her and also, at times he was having a knife when they are sleeping. The patient's family has been trying to take the knives in the house and securing them in a locked place for safety.The patient is seen today, in ICU and not in acute respiratory distress, but anxious, but chronic delusion that the is cheating him. 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 PAST MEDICAL HISTORY: Stated history of hypertension, diabetes, CAD, TIA, CRI. The patient has history of CABG in the past. ALLERGIES: THE PATIENT HAS NO ALLERGIES. DRUG AND ALCOHOL HISTORY: Denies any. PSYCHOSOCIAL HISTORY: The patient lives with his , they have 3 children, they have been for more than 20 years. The patient is now retired. CURRENT MEDICATIONS: List of current medications include hydralazine, aspirin, Cozaar, Crestor, heparin, Lasix, Lopressor, Novolin, Procrit and Zosyn. REVIEW OF SYSTEMS: The patient was seen today in ICU bed #18, he was going up to the sixth floor. The patient is constantly looking for his , I did made an order that may stay overnight as the patient gets very nervous if the is taken away from him for 5 minutes. PHYSICAL EXAMINATION: VITAL SIGNS: Temperature is 98, pulse rate is 83, blood pressure 154/91, respiration is 20 and oxygen saturation 98%. GENERAL: The patient is alert, verbal, conversing with the girls in his room. He is constantly looking for his . The was seen at bedside. SKIN: No diaphoresis. HEENT: No headache or dizziness. NECK: Supple. RESPIRATORY: Off and on dyspnea. CARDIOVASCULAR: No chest pain. GASTROINTESTINAL: No nausea. No vomiting. EXTREMITIES: The patient is moving extremities. MUSCULOSKELETAL: Feels weak. NEUROLOGIC: Alert with periods of confusion. The patient also seems to have off and on periods of confusion. MENTAL STATUS EXAMINATION: An obese male of [place] descent who is about 5 feet 6 inches and weighs 200 pounds, oriented x3. Mood is anxious. Affect is reactive. Speech is spontaneous. Thought process is confused at times. Thought content: The patient has chronic delusions of infidelity that his is cheating on him. No suicidal ideation, hallucination. Attention and memory seem to be limited. Insight and judgment limited. Impulse control is fair at this time. 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 PLAN AND RECOMMENDATIONS: The patient is seen, meds reviewed, continue present management. We will give Ativan 1 mg q. 6 p.r.n. for agitation. Due to the patient's current unstable medical condition, we will hold off any neuroleptic for now as well as to treat his chronic delusion, but may have the Ativan p.r.n. for anxiety. The patient's may stay also with the patient tonight as the patient is very nervous and looking for his all the time. Continue treatment plan as outlined. Once the patient is transferred to the floor, the patient may need a sitter to monitor him. The patient also gets confused and tries to get up out of bed and needs to be monitored. Ren Kyle MD [facility]
--- NOTE | 2017-07-09 22:41 | CP.PCM.PN ---
Subjective - Date & Time of Evaluation Date of Evaluation: 07/09/17 Time of Evaluation: 09:05 - Subjective Subjective: Patient seen and evaluated No additional cardiac events Pt seen and examined in no acute distress. Patient somnolent and had to be roused from sleep. Patient tolerating BIPAP therapy. Patient able to shake his head no to a review of symptoms. He denies chest pain, shortness of breath, palpitations or headaches at this time. Physical Examination - Constitutional Appears: Non-toxic, No Acute Distress - Head Exam Head Exam: ATRAUMATIC, NORMAL INSPECTION, NORMOCEPHALIC - Eye Exam Eye Exam: EOMI, PERRL - ENT Exam ENT Exam: Mucous Membranes Moist - Neck Exam Neck Exam: Full ROM - Respiratory Exam Respiratory Exam: absent: Wheezes - Cardiovascular Exam Cardiovascular Exam: +S1, +S2 - GI/Abdominal Exam GI & Abdominal Exam: Soft, Normal Bowel Sounds - Extremities Exam Extremities Exam: Normal Capillary Refill, Pedal Edema (1+ pitting). absent: Tenderness - Psychiatric Exam Psychiatric exam: Flat Affect - Skin Skin Exam: Dry, Normal Color, Warm Objective - Vital Signs/Intake and Output Vital Signs (last 24 hours): Temp Pulse Resp BP Pulse Ox 98.4 F 83 18 163/94 H 99 07/09/17 20:00 07/09/17 20:00 07/09/17 20:00 07/09/17 20:00 07/09/17 20:00 Intake and Output: 07/09/17 07/10/17 18:59 06:59 Intake Total 610 0 Output Total 1710 Balance -1100 0 - Medications Medications: Current Medications Acetaminophen (Tylenol 650mg/20.3ml Solution Ud) 650 mg PO Q6 PRN PRN Reason: Fever 100.6 and above Last Admin: 07/06/17 11:58 Dose: 650 mg Albuterol/Ipratropium (Duoneb 3 Mg/0.5 Mg (3 Ml) Ud) 3 ml INH RQ6 [facility] Last Admin: 07/09/17 19:06 Dose: 3 ml Aspirin (Aspirin Chewable) 81 mg PO DAILY [facility] Last Admin: 07/09/17 09:28 Dose: 81 mg Epoetin Pieter (Procrit) 10,000 unit SC TTS [facility] Last Admin: 07/09/17 09:43 Dose: 10,000 unit Famotidine (Pepcid) 20 mg IVP DAILY [facility] Last Admin: 07/09/17 09:29 Dose: 20 mg Ferric Sodium Gluconate Complex (Ferrlecit) 125 mg IVPB DAILY [facility] Stop: 07/15/17 23:21 Last Admin: 07/09/17 09:27 Dose: 125 mg Furosemide (Lasix) 40 mg PO DAILY [facility] Last Admin: 07/09/17 12:56 Dose: 40 mg Heparin Sodium (Porcine) (Heparin) 5,000 units SC Q12 [facility] Last Admin: 07/09/17 22:02 Dose: 5,000 units Hydralazine HCl (Apresoline) 10 mg IVP Q6H [facility] Last Admin: 07/09/17 22:03 Dose: 10 mg Piperacillin Sod/Tazobactam Sod (Zosyn 2.25 Gm Iv Premix) 2.25 gm in 50 mls @ 100 mls/hr IVPB Q6H [facility] Last Admin: 07/09/17 22:15 Dose: 100 mls/hr Insulin Human Regular (Novolin R) 0 unit SC Q6H [facility] PRN Reason: Protocol Last Admin: 07/09/17 17:07 Dose: 3 unit Lorazepam (Ativan) 1 mg PO Q6H PRN PRN Reason: Anxiety Losartan Potassium (Cozaar) 50 mg PO BID [facility] Last Admin: 07/06/17 09:34 Dose: 50 mg Metoprolol Tartrate (Lopressor) 25 mg PO BID [facility] Last Admin: 07/09/17 17:10 Dose: 25 mg Rosuvastatin Calcium (Crestor) 10 mg PO HS [facility] Last Admin: 07/09/17 22:02 Dose: 10 mg Vitamin B Complex/Vit C/Folic Acid (Nephro-Lc) 1 tab PO 0800 [facility] Last Admin: 07/09/17 09:00 Dose: 1 tab - Labs Labs: 07/09/17 06:23 07/09/17 06:23 PT 13.6 SECONDS (9.7-12.2) H 07/06/17 06:28 INR 1.2 07/06/17 06:28 APTT 33 SECONDS (21-34) D 07/06/17 06:28 Assessment and Plan - Assessment and Plan (Free Text) Assessment: Elevated Troponin Assessment and Plan: Mildly elevated but later trended down: It could have been due to ischemic changes but may also be due to CHF exacerbation as well No ST segment changes appreciated on EKG 07/06 Cont to monitor Status: Acute CHF exacerbation Assessment and Plan: S/P intubation due to resp distress on 07/05. Will likely be extubated soon. On IV Lasix 40 IV Q12 ECHO: EF 65%, mild calcified thickening of aortic valve. Refer to complete report Status: Acute Hypertension Assessment and Plan: On Metoprolol, Cozaar and Hydralazine Elevated overnight. Cont to monitor. Avoid IVF Status: Chronic History of coronary artery bypass graft Assessment and Plan: Crestor 10 mg PO HS On Metoprolol BID, ASA daily. Would like Neuro clearance before cardiac cath is performed. Patient would benefit from MRI/MRA to visualize cerebral vasculature. Status: Chronic History of diabetes mellitus Assessment and Plan: Accuchecks Sliding scale Hold Parameters in place A1c 6.8 Status: Chronic History of TIA (transient ischemic attack) Assessment and Plan: 07/[address]- Intracranial arterial calcifications; stable chronic infarcts noted. Refer to full report. Would benefit from MRI of brain. EEG reviewed by Neuro- Slow wave activity noted w/o paroxysmal activity or focal slowing Neuro on the case. See above. Cont to monitor Status: Acute Hypercholesterolemia Assessment and Plan: On Crestor Would benefit from diet and exercise modifications following current hospital course Status: Chronic Family history of cerebral aneurysm Assessment and Plan: Strong family history. Patient's counseled on the importance of imaging for children to rule out aneurysms. Head CT did not appear to show signs of aneurysmal disease. Neuro on case for AMS Status: Acute Prophylactic measure Assessment and Plan: SCDs contraindicated due to swelling Heparin SC Q12 Pepcid 20 mg IV daily Status: Acute
[2017-07-10] MEDS: (Novolin R) Insulin Human Regular 100 units/ml vial SC SCH ×4 (00:35→18:40)
[2017-07-10] MEDS: Albuterol-Ipratrop 3 mg / 0.5 (3 ml) UD INH SCH ×4 (01:18→19:21)
[2017-07-10] MEDS: Piperacill/Tazo 2.25gm in Dex 2.25 GM/50 ML BAG IVPB SCH ×4 (05:09→22:58)
--- NOTE | 2017-07-10 05:31 | CON ---
DATE: FOLLOWUP RENAL CONSULTATION: LOCATION: The patient is located in Room 663, Bed A. REQUESTED BY: Paola Adams MD REASON FOR FOLLOWUP: Acute renal failure, chronic kidney disease, and CHF. HISTORY OF PRESENT ILLNESS: Mr. Flowers is a 67-year-old obese [place] male with past medical history significant for long-standing hypertension, diabetes, coronary artery disease, status post CABG, and multiple CVAs, proteinuria, chronic kidney disease, was admitted with markedly fluid overload and hypoglycemia after taking insulin. Subsequently, his hospital course complicated by respiratory failure, requiring intubation, status post extubation yesterday. The patient is feeling better. The patient is not in any acute distress. Denies chest pain, palpitation. Denies any fever, cough. Denies any abdominal pain. No nausea, vomiting, diarrhea. The patient is on one-to-one. PHYSICAL EXAMINATION: GENERAL: Mr. Flowers is a 67-year-old elderly [place]ian male, well built, well nourished, not in acute distress. VITAL SIGNS: As follows: Blood pressure 163/94, pulse 83, respirations 18, temperature is 98.4, saturation is 99%, height 5 feet 6 inches, and weight is 200 pounds. HEENT: Pupils normal, reactive to light and accommodation. Conjunctiva pink. Sclerae anicteric. Tongue is moist. Trachea is midline. LUNGS: Symmetric on both sides. Bilateral breath sounds present. Bilateral expiratory rhonchi present. No crackles. CARDIOVASCULAR: [place] at the fifth intercostal space, midclavicular. S1 and S2 audible. No murmur or gallop. ABDOMEN: Normal in appearance, soft, tympanic. No guarding. No rigidity. No hepatosplenomegaly. CENTRAL NERVOUS SYSTEM: The patient is alert, awake, oriented x3. Nonfocal on examination. Cranial nerves II through XII grossly intact. Sensory and motor system is within normal limits. EXTREMITIES: No cyanosis. No clubbing. No edema. CURRENT MEDICATIONS: His current medications include as follows; hydralazine 10 mg IV q.6 hours, aspirin 81 mg daily, Ativan 1 mg p.o. q.6 hours, Cozaar 50 mg p.o. b.i.d. on hold, Crestor 10 mg at bedtime, DuoNeb inhaler q. 6 hours, and Ferrlecit 125 mg IV daily, subcutaneous heparin 5000 units q. 12 hours, and Lasix 40 mg p.o. b.i.d., and Lopressor 25 p.o. b.i.d., Nephro-Lc one tablet daily, and insulin per sliding scale 20 mg IV daily, Epogen 10,000 units 3 times a week, Tylenol, and Zosyn 2.25 g IV q.6 hours. LABORATORY DATA: Include as follows: As of 07/09/2017, WBC 6.5, hemoglobin 9.3, hematocrit 29.4, and platelets 223, neutrophils 84, bands 3, lymphocytes 5, monocytes 6, eosinophils 2. Sodium 142, potassium is 4, chloride 101, CO2 of 32, BUN 51, creatinine 2.9, glucose 139, calcium 8.6, phosphorus 6.3, magnesium 2.8, alkaline phosphatase 148, total protein 7.7, albumin is 3.2. ASSESSMENT: Mr. Flowers is a 67-year-old elderly male with a history of hypertension, diabetes, congestive heart failure; coronary artery disease, status post coronary artery bypass graft; multiple cardiovascular accidents, and proteinuria, increased BUN and creatinine, low hemoglobin and hematocrit, and congestive heart failure, status post extubation, and pneumonia. 1. Renal failure, acute on chronic kidney disease secondary to diuresis. 2. Anemia secondary to renal failure and iron-deficiency anemia. 3. Congestive heart failure. 4. Pneumonia. 5. Hypertension. 6. Diabetes. PLAN: Continue gentle diuresis, continue Ferrlecit, and continue Epogen 3 times a week and we will add RenaGel 800 mg p.o. t.i.d. We will check PH and PTH if it is not done. Thank you for allowing me to participate in your patient's care. Susana Jones MD
[2017-07-10 06:44] LABS: BASO % 0.3 % (0.0-2.0); EOS # 0.1 K/uL (0.0-0.7); EOS % 1.5 % (0.0-4.0); HEMATOCRIT 32.3 % (35.0-51.0); LYMPH # 0.8 K/uL (1.0-4.3); MEAN CELL VOLUME 87.3 fL (80.0-94.0); MEAN CORPUSCULAR HEMOGLOBIN 27.3 pg (27.0-31.0); MEAN CORPUSCULAR HGB CONC 31.3 g/dL (33.0-37.0); MEAN PLATELET VOLUME 8.7 fL (7.2-11.7); MONO # 0.7 K/uL (0.0-0.8); MONO % 6.9 % (0.0-10.0); PLATELET COUNT 247 K/uL (130-400); RED CELL DISTRIBUTION WIDTH 18.8 % (11.5-14.5); WHITE BLOOD COUNT 9.4 K/uL (4.8-10.8)
--- NOTE | 2017-07-10 07:44 | CP.PCM.PN ---
<Maurilio Lr - Last Filed: 07/10/17 13:16> Subjective - Date & Time of Evaluation Date of Evaluation: 07/10/17 Time of Evaluation: 08:11 - Subjective Subjective: Cardiology Progress Note- Dr. Butler's service Pt seen and examined in no acute distress. Patient somnolent and had to be roused from sleep. Patient tolerating BIPAP therapy. Patient able to shake his head no to a review of symptoms. He denies chest pain, shortness of breath, palpitations or headaches at this time. Objective - Vital Signs/Intake and Output Vital Signs (last 24 hours): Temp Pulse Resp BP Pulse Ox 98.1 F 90 22 175/90 H 96 07/09/17 23:10 07/10/17 07:14 07/10/17 01:00 07/10/17 01:00 07/10/17 01:00 Intake and Output: 07/10/17 07/10/17 06:59 18:59 Intake Total 0 Output Total 300 Balance -300 - Medications Medications: Current Medications Acetaminophen (Tylenol 650mg/20.3ml Solution Ud) 650 mg PO Q6 PRN PRN Reason: Fever 100.6 and above Last Admin: 07/06/17 11:58 Dose: 650 mg Albuterol/Ipratropium (Duoneb 3 Mg/0.5 Mg (3 Ml) Ud) 3 ml INH RQ6 [facility] Last Admin: 07/10/17 07:13 Dose: 3 ml Aspirin (Aspirin Chewable) 81 mg PO DAILY [facility] Last Admin: 07/09/17 09:28 Dose: 81 mg Epoetin Pieter (Procrit) 10,000 unit SC TTS [facility] Last Admin: 07/09/17 09:43 Dose: 10,000 unit Famotidine (Pepcid) 20 mg IVP DAILY [facility] Last Admin: 07/09/17 09:29 Dose: 20 mg Ferric Sodium Gluconate Complex (Ferrlecit) 125 mg IVPB DAILY [facility] Stop: 07/15/17 23:21 Last Admin: 07/09/17 09:27 Dose: 125 mg Furosemide (Lasix) 40 mg PO DAILY [facility] Last Admin: 07/09/17 12:56 Dose: 40 mg Heparin Sodium (Porcine) (Heparin) 5,000 units SC Q12 [facility] Last Admin: 07/09/17 22:02 Dose: 5,000 units Hydralazine HCl (Apresoline) 10 mg IVP Q6H [facility] Last Admin: 07/10/17 05:05 Dose: 10 mg Piperacillin Sod/Tazobactam Sod (Zosyn 2.25 Gm Iv Premix) 2.25 gm in 50 mls @ 100 mls/hr IVPB Q6H [facility] Last Admin: 07/10/17 05:09 Dose: 100 mls/hr Insulin Human Regular (Novolin R) 0 unit SC Q6H [facility] PRN Reason: Protocol Last Admin: 07/10/17 00:35 Dose: Not Given Lorazepam (Ativan) 1 mg PO Q6H PRN PRN Reason: Anxiety Last Admin: 07/10/17 05:05 Dose: 1 mg Losartan Potassium (Cozaar) 50 mg PO BID [facility] Last Admin: 07/06/17 09:34 Dose: 50 mg Metoprolol Tartrate (Lopressor) 25 mg PO BID [facility] Last Admin: 07/09/17 17:10 Dose: 25 mg Rosuvastatin Calcium (Crestor) 10 mg PO HS [facility] Last Admin: 07/09/17 22:02 Dose: 10 mg Vitamin B Complex/Vit C/Folic Acid (Nephro-Lc) 1 tab PO 0800 [facility] Last Admin: 07/09/17 09:00 Dose: 1 tab - Labs Labs: 07/10/17 06:22 07/09/17 06:23 PT 13.6 SECONDS (9.7-12.2) H 07/06/17 06:28 INR 1.2 07/06/17 06:28 APTT 33 SECONDS (21-34) D 07/06/17 06:28 - Constitutional Appears: Non-toxic, No Acute Distress - Head Exam Head Exam: ATRAUMATIC, NORMAL INSPECTION, NORMOCEPHALIC - Eye Exam Eye Exam: EOMI, PERRL - ENT Exam ENT Exam: Mucous Membranes Moist - Neck Exam Neck Exam: Full ROM - Respiratory Exam Respiratory Exam: absent: Wheezes - Cardiovascular Exam Cardiovascular Exam: +S1, +S2 - GI/Abdominal Exam GI & Abdominal Exam: Soft, Normal Bowel Sounds - Extremities Exam Extremities Exam: Normal Capillary Refill, Pedal Edema (1+ pitting). absent: Tenderness - Psychiatric Exam Psychiatric exam: Flat Affect - Skin Skin Exam: Dry, Normal Color, Warm Assessment and Plan (1) CHF exacerbation Status: Acute (2) Hypertension Status: Chronic (3) History of coronary artery bypass graft Status: Chronic (4) Hypoglycemia Status: Acute (5) History of diabetes mellitus Status: Chronic (6) History of TIA (transient ischemic attack) Status: Acute (7) Hypercholesteremia Status: Chronic (8) Family history of cerebral aneurysm Status: Acute (9) Prophylactic measure Status: Acute - Assessment and Plan (Free Text) Assessment: Elevated Troponin Assessment and Plan: Early in the treatment course: Mildly elevated but later trended down: It could have been due to ischemic changes but may also be due to CHF exacerbation as well No ST segment changes appreciated on EKG 07/06 Cont to monitor Status: Acute CHF exacerbation Assessment and Plan: Likely pulmonary congestion Patient is retaining some fluid in the LE. He will benefit from Lasix increased to IV BID. ECHO: EF 65%, mild calcified thickening of aortic valve. Refer to complete report Status: Acute Hypertension Assessment and Plan: Elevated Received one stat dose of IV Hydralazine On Metoprolol, Cozaar and Hydralazine Cont to monitor. Avoid IVF Status: Chronic History of coronary artery bypass graft Assessment and Plan: Crestor 10 mg PO HS On Metoprolol BID, ASA daily. Would like Neuro clearance before cardiac cath is performed. Patient would benefit from MRI/MRA to visualize cerebral vasculature. Status: Chronic History of diabetes mellitus Assessment and Plan: Accuchecks Sliding scale Hold Parameters in place A1c 6.8 Status: Chronic History of TIA (transient ischemic attack) Assessment and Plan: 07/[address]- Intracranial arterial calcifications; stable chronic infarcts noted. Refer to full report. Would benefit from MRI of brain. EEG reviewed by Neuro- Slow wave activity noted w/o paroxysmal activity or focal slowing Neuro on the case. See above. Cont to monitor Status: Acute Hypercholesterolemia Assessment and Plan: On Crestor Would benefit from diet and exercise modifications following current hospital course Status: Chronic Family history of cerebral aneurysm Assessment and Plan: Strong family history. Patient's counseled on the importance of imaging for children to rule out aneurysms. Head CT did not appear to show signs of aneurysmal disease. Neuro on case for AMS Status: Acute Prophylactic measure Assessment and Plan: SCDs contraindicated due to swelling Heparin SC Q12 Pepcid 20 mg IV daily Status: Acute Discussed with attending. Management and Planning per Dr. Butler. Corey Muro Last Filed: 07/11/17 00:05> Objective - Vital Signs/Intake and Output Vital Signs (last 24 hours): Temp Pulse Resp BP Pulse Ox 97.7 F 81 20 169/95 H 97 07/10/17 23:05 07/10/17 23:05 07/10/17 23:05 07/10/17 23:05 07/10/17 23:05 Intake and Output: 07/10/17 07/11/17 18:59 06:59 Intake Total 411 Output Total 975 Balance -564 - Medications Medications: Current Medications Acetaminophen (Tylenol 650mg/20.3ml Solution Ud) 650 mg PO Q6 PRN PRN Reason: Fever 100.6 and above Last Admin: 07/06/17 11:58 Dose: 650 mg Albuterol/Ipratropium (Duoneb 3 Mg/0.5 Mg (3 Ml) Ud) 3 ml INH RQ6 [facility] Last Admin: 07/10/17 19:21 Dose: 3 ml Aspirin (Aspirin Chewable) 81 mg PO DAILY [facility] Last Admin: 07/10/17 09:52 Dose: Not Given Clonidine HCl (Catapres) 0.1 mg PO TID [facility] Last Admin: 07/10/17 18:40 Dose: 0.1 mg Epoetin Pieter (Procrit) 10,000 unit SC TTS [facility] Last Admin: 07/09/17 09:43 Dose: 10,000 unit Famotidine (Pepcid) 20 mg IVP DAILY [facility] Last Admin: 07/10/17 09:53 Dose: 20 mg Ferric Sodium Gluconate Complex (Ferrlecit) 125 mg IVPB DAILY [facility] Stop: 07/15/17 23:21 Last Admin: 07/10/17 10:01 Dose: 125 mg Furosemide (Lasix) 40 mg IVP Q12 [facility] Last Admin: 07/10/17 22:58 Dose: 40 mg Heparin Sodium (Porcine) (Heparin) 5,000 units SC Q12 [facility] Last Admin: 07/10/17 22:57 Dose: 5,000 units Hydralazine HCl (Apresoline) 10 mg IVP Q6H [facility] Last Admin: 07/10/17 22:57 Dose: 10 mg Piperacillin Sod/Tazobactam Sod (Zosyn 2.25 Gm Iv Premix) 2.25 gm in 50 mls @ 100 mls/hr IVPB Q6H [facility] Last Admin: 07/10/17 22:58 Dose: 100 mls/hr Insulin Human Regular (Novolin R) 0 unit SC Q6H [facility] PRN Reason: Protocol Last Admin: 07/10/17 18:40 Dose: 3 unit Losartan Potassium (Cozaar) 50 mg PO BID [facility] Last Admin: 07/06/17 09:34 Dose: 50 mg Methylprednisolone (Solu-Medrol) 40 mg IV Q8 [facility] Last Admin: 07/10/17 22:57 Dose: 40 mg Metoprolol Tartrate (Lopressor) 50 mg PO BID [facility] Last Admin: 07/10/17 18:41 Dose: 50 mg Rosuvastatin Calcium (Crestor) 10 mg PO HS [facility] Last Admin: 07/10/17 22:57 Dose: 10 mg Fluticasone/Salmeterol (Advair Diskus 250/50) 1 puff INH RQ12 [facility] Last Admin: 07/10/17 19:21 Dose: 1 puff Tiotropium [place] (Spiriva) 18 mcg INH RQ24 [facility] Vitamin B Complex/Vit C/Folic Acid (Nephro-Lc) 1 tab PO 0800 [facility] Last Admin: 07/10/17 09:52 Dose: Not Given - Labs Labs: 07/10/17 06:22 07/09/17 06:23 PT 13.6 SECONDS (9.7-12.2) H 07/06/17 06:28 INR 1.2 07/06/17 06:28 APTT 33 SECONDS (21-34) D 07/06/17 06:28 Assessment and Plan - Assessment and Plan (Free Text) Assessment: Patient seen and evaluated with the medical records technician Plan of care as documented
[2017-07-10 09:01] LABS: NEUTROPHIL 88 % (50-75); TOTAL CELLS COUNTED 100
[2017-07-10] MEDS ORDERED: MethylPREDNISolone 40 mg Vial IM STA (09:06)
--- NOTE | 2017-07-10 09:10 | CP.PCM.PN ---
Subjective - Date & Time of Evaluation Date of Evaluation: 07/10/17 Time of Evaluation: 08:30 - Subjective Subjective: PATIENT SEEN ON BIPAP, TURNS HEAD DURING DISCUSSION OF CONDITION, IS COUGHING EPISODICALLY, Objective - Vital Signs/Intake and Output Vital Signs (last 24 hours): Temp Pulse Resp BP Pulse Ox 97.8 F 90 20 192/108 H 94 L 07/10/17 07:10 07/10/17 07:14 07/10/17 07:10 07/10/17 07:10 07/10/17 07:10 Intake and Output: 07/10/17 07/10/17 06:59 18:59 Intake Total 0 Output Total 300 Balance -300 - Medications Medications: Current Medications Acetaminophen (Tylenol 650mg/20.3ml Solution Ud) 650 mg PO Q6 PRN PRN Reason: Fever 100.6 and above Last Admin: 07/06/17 11:58 Dose: 650 mg Albuterol/Ipratropium (Duoneb 3 Mg/0.5 Mg (3 Ml) Ud) 3 ml INH RQ6 [facility] Last Admin: 07/10/17 07:13 Dose: 3 ml Aspirin (Aspirin Chewable) 81 mg PO DAILY [facility] Last Admin: 07/09/17 09:28 Dose: 81 mg Epoetin Pieter (Procrit) 10,000 unit SC TTS [facility] Last Admin: 07/09/17 09:43 Dose: 10,000 unit Famotidine (Pepcid) 20 mg IVP DAILY [facility] Last Admin: 07/09/17 09:29 Dose: 20 mg Ferric Sodium Gluconate Complex (Ferrlecit) 125 mg IVPB DAILY [facility] Stop: 07/15/17 23:21 Last Admin: 07/09/17 09:27 Dose: 125 mg Furosemide (Lasix) 40 mg PO DAILY [facility] Last Admin: 07/09/17 12:56 Dose: 40 mg Heparin Sodium (Porcine) (Heparin) 5,000 units SC Q12 [facility] Last Admin: 07/09/17 22:02 Dose: 5,000 units Hydralazine HCl (Apresoline) 10 mg IVP Q6H [facility] Last Admin: 07/10/17 05:05 Dose: 10 mg Piperacillin Sod/Tazobactam Sod (Zosyn 2.25 Gm Iv Premix) 2.25 gm in 50 mls @ 100 mls/hr IVPB Q6H [facility] Last Admin: 07/10/17 05:09 Dose: 100 mls/hr Insulin Human Regular (Novolin R) 0 unit SC Q6H [facility] PRN Reason: Protocol Last Admin: 07/10/17 07:54 Dose: 2 unit Lorazepam (Ativan) 1 mg PO Q6H PRN PRN Reason: Anxiety Last Admin: 07/10/17 05:05 Dose: 1 mg Losartan Potassium (Cozaar) 50 mg PO BID [facility] Last Admin: 07/06/17 09:34 Dose: 50 mg Methylprednisolone (Solu-Medrol) 40 mg IM Q8 [facility] Metoprolol Tartrate (Lopressor) 25 mg PO BID [facility] Last Admin: 07/09/17 17:10 Dose: 25 mg Rosuvastatin Calcium (Crestor) 10 mg PO HS [facility] Last Admin: 07/09/17 22:02 Dose: 10 mg Fluticasone/Salmeterol (Advair Diskus 250/50) 1 puff INH RQ12 [facility] Vitamin B Complex/Vit C/Folic Acid (Nephro-Lc) 1 tab PO 0800 [facility] Last Admin: 07/09/17 09:00 Dose: 1 tab - Labs Labs: 07/10/17 06:22 07/09/17 06:23 PT 13.6 SECONDS (9.7-12.2) H 07/06/17 06:28 INR 1.2 07/06/17 06:28 APTT 33 SECONDS (21-34) D 07/06/17 06:28 - Constitutional Appears: Chronically Ill (QUIET , ON BIPAP) - Head Exam Head Exam: ATRAUMATIC, NORMOCEPHALIC - Eye Exam Eye Exam: Normal appearance. absent: Nystagmus - ENT Exam ENT Exam: Mucous Membranes Moist - Neck Exam Neck Exam: absent: Meningismus (TURNS HEAD) - Respiratory Exam Respiratory Exam: Decreased Breath Sounds, Wheezes, NORMAL BREATHING PATTERN - Cardiovascular Exam Cardiovascular Exam: REGULAR RHYTHM - GI/Abdominal Exam GI & Abdominal Exam: Soft, Normal Bowel Sounds. absent: Tenderness - Neurological Exam Neurological Exam: Awake (QUIET, JUST NOD TURNS HEAD USING BIPAP) - Psychiatric Exam Psychiatric exam: Normal Affect - Skin Skin Exam: Intact, Normal Color Assessment and Plan - Assessment and Plan (Free Text) Assessment: PATIENT WITH CRI FLUID OVERLOAD POST INTUBATION FOR RESPIRATORY DISTRESS CURRENTLY ON BIPAP- WITH WHEEZING WILL START STEROID, RESPIRATORY TREATMENT, CONTINUE ANTIBIOTIC HYPERTENSION- UNCONTROLLED- MEDICATION ADJUSTMENT IDDM2- MONITORING POST HYPOGLYCEMIA- CONTINUE MONITORING- COVERAGE ACCORDINGLY COPD-OBESITY- ABOVE
[2017-07-10] MEDS ORDERED: MethylPREDNISolone 40 mg Vial IM SCH (09:15)
--- NOTE | 2017-07-10 09:23 | PN ---
DATE: 07/10/2017 SUBJECTIVE: The patient was moved to the telemetry. The patient did have agitation, and the patient was given Ativan. The patient seems to be in labored breathing and sedated. The patient responded to pain symmetrically on both sides. PHYSICAL EXAMINATION: VITAL SIGNS: His vital signs have been recorded. Blood pressure 177/90, mean arterial pressure of 118, respiratory rate of labored breathing with 28, pulse rate 92, temperature 98.1. The patient is requested to have a BiPAP with set up of 12/6 with 40% oxygen. The patient's condition is being discussed with Dr. Butler as well as the patient's , been evaluated earlier in [facility] for possible aneurysm intracranially, which is not diagnosed where it is and how old is the status at present. The patient is also scheduled to have an MRI of the brain and MR angiogram to rule out any intracranial aneurysm. The patient did have a followup MRI and MR angiogram, which was done more than 2 years ago as per the patient's . The patient should be followed closely because of his respiratory status. If his condition to worse, the patient should be moved back to the unit. Arslan Carl MD MTDD
[2017-07-10] MEDS: MethylPREDNISolone 40 mg Vial IV SCH ×3 (09:39→22:57)
[2017-07-10] MEDS: Multivitamin Vitamin B Complex (Nephro-Vite) Tab PO SCH (09:52)
[2017-07-10] MEDS: Ferric Sodium Gluconat Complex 62.5 mg/5 ml Vial IVPB SCH (10:01)
[2017-07-10 11:42] LABS: ABG ALLEN TEST POS; ARTERIAL BLOOD GAS MODE BiPAP; ARTERIAL BLOOD HGB O2 SAT 95.5 % (95.0-98.0); CARBOXYHEMOGLOBIN 2.4 % (0.5-1.5); DRAW SITE RRA; HHB 0.9 % (0.0-5.0); METHEMOGLOBIN 1.2 % (0.0-3.0)
--- NOTE | 2017-07-10 13:14 | CP.PCM.PN ---
Subjective - Date & Time of Evaluation Date of Evaluation: 07/10/17 Time of Evaluation: 09:45 - Subjective Subjective: patient seen and examined Appears lethargic and received Ativan in the morning On BiPAP for shortness of breath Hypertensive Afebrile Objective - Vital Signs/Intake and Output Vital Signs (last 24 hours): Temp Pulse Resp BP Pulse Ox 97.8 F 93 H 20 209/107 H 94 L 07/10/17 07:10 07/10/17 11:30 07/10/17 07:10 07/10/17 13:08 07/10/17 07:10 Intake and Output: 07/10/17 07/10/17 06:59 18:59 Intake Total 0 Output Total 300 Balance -300 - Medications Medications: Current Medications Acetaminophen (Tylenol 650mg/20.3ml Solution Ud) 650 mg PO Q6 PRN PRN Reason: Fever 100.6 and above Last Admin: 07/06/17 11:58 Dose: 650 mg Albuterol/Ipratropium (Duoneb 3 Mg/0.5 Mg (3 Ml) Ud) 3 ml INH RQ6 [facility] Last Admin: 07/10/17 07:13 Dose: 3 ml Aspirin (Aspirin Chewable) 81 mg PO DAILY [facility] Last Admin: 07/10/17 09:52 Dose: Not Given Epoetin Pieter (Procrit) 10,000 unit SC TTS [facility] Last Admin: 07/09/17 09:43 Dose: 10,000 unit Famotidine (Pepcid) 20 mg IVP DAILY [facility] Last Admin: 07/10/17 09:53 Dose: 20 mg Ferric Sodium Gluconate Complex (Ferrlecit) 125 mg IVPB DAILY [facility] Stop: 07/15/17 23:21 Last Admin: 07/10/17 10:01 Dose: 125 mg Furosemide (Lasix) 40 mg IVP Q12 [facility] Last Admin: 07/10/17 11:10 Dose: Not Given Heparin Sodium (Porcine) (Heparin) 5,000 units SC Q12 [facility] Last Admin: 07/10/17 10:03 Dose: 5,000 units Hydralazine HCl (Apresoline) 10 mg IVP Q6H [facility] Last Admin: 07/10/17 11:43 Dose: 10 mg Piperacillin Sod/Tazobactam Sod (Zosyn 2.25 Gm Iv Premix) 2.25 gm in 50 mls @ 100 mls/hr IVPB Q6H [facility] Last Admin: 07/10/17 11:52 Dose: 100 mls/hr Insulin Human Regular (Novolin R) 0 unit SC Q6H [facility] PRN Reason: Protocol Last Admin: 07/10/17 12:24 Dose: 1 unit Losartan Potassium (Cozaar) 50 mg PO BID [facility] Last Admin: 07/06/17 09:34 Dose: 50 mg Methylprednisolone (Solu-Medrol) 40 mg IV Q8 [facility] Last Admin: 07/10/17 13:08 Dose: 40 mg Metoprolol Tartrate (Lopressor) 25 mg PO BID [facility] Last Admin: 07/10/17 13:08 Dose: 25 mg Rosuvastatin Calcium (Crestor) 10 mg PO HS [facility] Last Admin: 07/09/17 22:02 Dose: 10 mg Fluticasone/Salmeterol (Advair Diskus 250/50) 1 puff INH RQ12 [facility] Tiotropium [place] (Spiriva) 18 mcg INH RQ24 [facility] Vitamin B Complex/Vit C/Folic Acid (Nephro-Lc) 1 tab PO 0800 [facility] Last Admin: 07/10/17 09:52 Dose: Not Given - Labs Labs: 07/10/17 06:22 07/09/17 06:23 PT 13.6 SECONDS (9.7-12.2) H 07/06/17 06:28 INR 1.2 07/06/17 06:28 APTT 33 SECONDS (21-34) D 07/06/17 06:28 - Head Exam Head Exam: ATRAUMATIC, NORMOCEPHALIC - ENT Exam ENT Exam: Mucous Membranes Moist - Neck Exam Neck Exam: Normal Inspection - Respiratory Exam Respiratory Exam: Decreased Breath Sounds - Cardiovascular Exam Cardiovascular Exam: REGULAR RHYTHM - GI/Abdominal Exam GI & Abdominal Exam: Soft, Normal Bowel Sounds - Extremities Exam Extremities Exam: Pedal Edema - Neurological Exam Neurological Exam: Altered Assessment and Plan (1) Hypercapnic respiratory failure, chronic Assessment & Plan: patient appears lethargic Followup ABG Continue BiPAP Lasix twice daily Continue nebulizer treatment and steroids ICU evaluation Status: Acute (2) Elevated troponin Status: Acute (3) Pulmonary edema Status: Acute (4) Hypoglycemia Status: Acute
--- NOTE | 2017-07-10 16:23 | RAD ---
HISTORY: verify right PICC COMPARISON: Portable chest 07/09/2017. FINDINGS: Right center venous lines unchanged in position with right PICC insertion now identified placed terminating the superior vena cava. LUNGS: No definite delete alveolar disease appreciable PLEURA: No significant pleural effusion identified, no pneumothorax apparent. CARDIOVASCULAR: Cardiomegaly and mild pulmonary vascular congestion are identified with vascularity slightly increased suggesting interval slight worsening of CHF. OSSEOUS STRUCTURES: Sternotomy wires again noted as well as CABG related surgical clips in the mediastinum. VISUALIZED UPPER ABDOMEN: Normal. OTHER FINDINGS: None. IMPRESSION: 1. Mild interval worsening of CHF. 2. Stable right cm line with interval right upper extremity PICC terminating in the superior vena cava.
--- NOTE | 2017-07-10 18:12 | PN ---
DATE: 07/10/2017 SUBJECTIVE: The patient is seen. The patient is more alert and verbal today but according to the nurse, he has been very lethargic and somnolent earlier. The patient was given Ativan 1 mg earlier this morning and became so somnolent. We will discontinue the Ativan as the patient seems to be very sensitive. He has anxiety related to his chronic delusion about his , but his went home. The patient reports that he does not like the food here and has very poor appetite. He is also in mittens as he was trying to pull his lines earlier. The patient is on close monitoring as one-to-one watching him. Other than that, he seems to be managing well conversing in Tagalog. PHYSICAL EXAMINATION VITAL SIGNS: Temperature is 97.8, pulse is 92, blood pressure is still elevated at 209/107, respirations 20, oxygen saturation is 94% on BiPAP . GENERAL: The patient is alert, verbal, conversing in Tag[place], still feels weak. Skin- no pruritus. HEENT- no headache or dizziness.. NECK: Supple. RESPIRATORY: Not in acute respiratory distress. CARDIOVASCULAR: No chest pain. GASTROINTESTINAL: Appetite is poor, no nausea, no vomiting. EXTREMITIES: He has mittens. The patient is moving extremities. MUSCULOSKELETAL: Feels weak. NEUROLOGIC: Alert and oriented x3 GENITOURINARY: Complaining of dysuria. MENTAL STATUS EXAMINATION: Elderly male of [place] descend, weak, oriented x3. He is drowsy from the after effects of the Ativan. Mood is still dysphoric, anxious. Affect, constricted. Speech, spontaneous. Thought process, coherent. Thought content, no overt psychosis, no suicidal ideation. Attention and memory seem to be fair. Insight and judgement, fair. Impulse control is fair. 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 RECOMMENDATIONS: The patient is seen, medications reviewed. We will discontinue the Ativan p.r.n. as the patient became very lethargic with it and to avoid more respiratory problems. Redirect the patient as needed. The patient is verbally redirectable. Continue treatment. Plan is outlined. Concerning his chronic delusions, obviously about his , we will hold off his psychiatric medications for now until the patient is more medically stable. Ren Kyle MD [facility]
[2017-07-10] MEDS: Fluticasone-Salmeterol 250-50mcg Diskus INH SCH (19:21)
[2017-07-11] MEDS: (Novolin R) Insulin Human Regular 100 units/ml vial SC SCH ×4 (00:44→17:34)
[2017-07-11] MEDS: Albuterol-Ipratrop 3 mg / 0.5 (3 ml) UD INH SCH ×3 (02:01→19:54)
[2017-07-11] MEDS: Piperacill/Tazo 2.25gm in Dex 2.25 GM/50 ML BAG IVPB SCH ×3 (04:50→17:26)
[2017-07-11] MEDS: MethylPREDNISolone 40 mg Vial IV SCH ×3 (05:52→22:00)
[2017-07-11 06:20] LABS: BASO % 0.1 % (0.0-2.0); HEMATOCRIT 30.7 % (35.0-51.0); LYMPH # 0.4 K/uL (1.0-4.3); LYMPH % 8.1 % (20.0-40.0); MEAN CORPUSCULAR HEMOGLOBIN 27.6 pg (27.0-31.0); MEAN CORPUSCULAR HGB CONC 31.8 g/dL (33.0-37.0); MONO # 0.1 K/uL (0.0-0.8); MONO % 2.4 % (0.0-10.0); NRBC % 0.1 % (0.0-2.0); PLATELET COUNT 227 K/uL (130-400); RED CELL DISTRIBUTION WIDTH 18.2 % (11.5-14.5); WHITE BLOOD COUNT 4.9 K/uL (4.8-10.8)
[2017-07-11] MEDS: Fluticasone-Salmeterol 250-50mcg Diskus INH SCH ×2 (07:37→19:53)
[2017-07-11] MEDS: Multivitamin Vitamin B Complex (Nephro-Vite) Tab PO SCH (08:15)
[2017-07-11 08:36] LABS: NEUTROPHIL 88 % (50-75); TOTAL CELLS COUNTED 100
[2017-07-11 08:37] LABS: LARGE PLATELETS PRESENT
[2017-07-11] MEDS: Ferric Sodium Gluconat Complex 62.5 mg/5 ml Vial IVPB SCH (10:48)
[2017-07-11] MEDS: EPOETIN ALFA 10,000 UNIT/ML ML SC SCH (10:50)
--- NOTE | 2017-07-11 12:15 | CP.PCM.PN ---
Subjective - Date & Time of Evaluation Date of Evaluation: 07/11/17 Time of Evaluation: 03:30 - Subjective Subjective: patient seen - in bed- conversant . on room air by bedside, , no breathing complaints- on steroid, antibiotic respiratory treatment - discussed subacute Objective - Vital Signs/Intake and Output Vital Signs (last 24 hours): Temp Pulse Resp BP Pulse Ox 97.8 F 87 22 184/98 H 96 07/11/17 07:35 07/11/17 07:35 07/11/17 07:35 07/11/17 10:49 07/11/17 04:22 Intake and Output: 07/11/17 07/11/17 06:59 18:59 Intake Total 340 Balance 340 - Medications Medications: Current Medications Acetaminophen (Tylenol 650mg/20.3ml Solution Ud) 650 mg PO Q6 PRN PRN Reason: Fever 100.6 and above Last Admin: 07/06/17 11:58 Dose: 650 mg Albuterol/Ipratropium (Duoneb 3 Mg/0.5 Mg (3 Ml) Ud) 3 ml INH RQ6 [facility] Last Admin: 07/11/17 07:35 Dose: 3 ml Aspirin (Aspirin Chewable) 81 mg PO DAILY [facility] Last Admin: 07/11/17 10:48 Dose: 81 mg Clonidine HCl (Catapres) 0.1 mg PO TID [facility] Last Admin: 07/11/17 10:48 Dose: 0.1 mg Epoetin [place]eter (Procrit) 10,000 unit SC TTS [facility] Last Admin: 07/11/17 10:50 Dose: 10,000 unit Famotidine (Pepcid) 20 mg IVP DAILY [facility] Last Admin: 07/11/17 10:50 Dose: 20 mg Ferric Sodium Gluconate Complex (Ferrlecit) 125 mg IVPB DAILY [facility] Stop: 07/15/17 23:21 Last Admin: 07/11/17 10:48 Dose: 125 mg Furosemide (Lasix) 40 mg IVP Q12 [facility] Last Admin: 07/11/17 10:49 Dose: 40 mg Heparin Sodium (Porcine) (Heparin) 5,000 units SC Q12 [facility] Last Admin: 07/11/17 10:49 Dose: 5,000 units Hydralazine HCl (Apresoline) 10 mg IVP Q6H [facility] Last Admin: 10/21/17 10:48 Dose: 10 mg Piperacillin Sod/Tazobactam Sod (Zosyn 2.25 Gm Iv Premix) 2.25 gm in 50 mls @ 100 mls/hr IVPB Q6H [facility] Last Admin: 07/11/17 10:52 Dose: 100 mls/hr Insulin Glargine (Lantus) 10 unit SC DAILY [facility] Insulin Human Regular (Novolin R) 0 unit SC Q6H [facility] PRN Reason: Protocol Last Admin: 07/11/17 05:54 Dose: 5 unit Losartan Potassium (Cozaar) 50 mg PO BID [facility] Last Admin: 07/06/17 09:34 Dose: 50 mg Methylprednisolone (Solu-Medrol) 40 mg IV Q8 [facility] Last Admin: 07/11/17 05:52 Dose: 40 mg Metoprolol Tartrate (Lopressor) 50 mg PO BID [facility] Last Admin: 07/11/17 10:50 Dose: 50 mg Rosuvastatin Calcium (Crestor) 10 mg PO HS [facility] Last Admin: 07/10/17 22:57 Dose: 10 mg Fluticasone/Salmeterol (Advair Diskus 250/50) 1 puff INH RQ12 [facility] Last Admin: 07/11/17 07:37 Dose: 1 puff Tiotropium [place] (Spiriva) 18 mcg INH RQ24 [facility] Vitamin B Complex/Vit C/Folic Acid (Nephro-Lc) 1 tab PO 0800 [facility] Last Admin: 07/11/17 08:15 Dose: 1 tab - Labs Labs: 07/11/17 06:07 07/09/17 06:23 PT 13.6 SECONDS (9.7-12.2) H 07/06/17 06:28 INR 1.2 07/06/17 06:28 APTT 33 SECONDS (21-34) D 07/06/17 06:28 - Constitutional Appears: Non-toxic (conversant oriented awake ) - Head Exam Head Exam: ATRAUMATIC, NORMOCEPHALIC - Eye Exam Eye Exam: Normal appearance - ENT Exam ENT Exam: Mucous Membranes Moist - Neck Exam Neck Exam: Full ROM. absent: Tenderness - Respiratory Exam Respiratory Exam: Decreased Breath Sounds, Clear to Ausculation Bilateral, NORMAL BREATHING PATTERN - Cardiovascular Exam Cardiovascular Exam: REGULAR RHYTHM - GI/Abdominal Exam GI & Abdominal Exam: Soft, Normal Bowel Sounds. absent: Tenderness - Extremities Exam Extremities Exam: Full ROM, Pedal Edema (mild) - Neurological Exam Neurological Exam: Alert, Awake, Oriented x3 - Psychiatric Exam Psychiatric exam: Normal Affect, Normal Mood - Skin Skin Exam: Intact, Normal Color Assessment and Plan - Assessment and Plan (Free Text) Assessment: Patient post hypoglycemia- now with increasing sugar- ofelia now on steroid- will star insulin and monitor Post respiratory distress- on room air- on respiratory treatment and steroid and antibiotic Uncontrolled hypertension- adjusting medication Debility- evaluate for subacute- patient and family agreed CRI- monitoring cleared by psychiatry to go
[2017-07-11] MEDS: Tiotropium 18 mcg Cap For Inhalation INH SCH (12:23)
[2017-07-11] MEDS: (Lantus) Insulin Glargine, Recombinant SC SCH (12:41)
--- NOTE | 2017-07-11 16:15 | CP.PCM.PN ---
Subjective - Date & Time of Evaluation Date of Evaluation: 07/11/17 Time of Evaluation: 16:15 - Subjective Subjective: pt is seen and examined, follow up consult is dictated #[id number] Objective - Vital Signs/Intake and Output Vital Signs (last 24 hours): Temp Pulse Resp BP Pulse Ox 98 F 84 20 172/94 H 99 07/11/17 16:00 07/11/17 16:00 07/11/17 16:00 07/11/17 16:00 07/11/17 16:00 Intake and Output: 07/11/17 07/11/17 06:59 18:59 Intake Total 340 Output Total 700 Balance 340 -700 - Medications Medications: Current Medications Acetaminophen (Tylenol 650mg/20.3ml Solution Ud) 650 mg PO Q6 PRN PRN Reason: Fever 100.6 and above Last Admin: 07/06/17 11:58 Dose: 650 mg Albuterol/Ipratropium (Duoneb 3 Mg/0.5 Mg (3 Ml) Ud) 3 ml INH RQ6 [facility] Last Admin: 07/11/17 07:35 Dose: 3 ml Amlodipine Besylate (Norvasc) 10 mg PO DAILY [facility] Last Admin: 07/11/17 12:40 Dose: 10 mg Aspirin (Aspirin Chewable) 81 mg PO DAILY [facility] Last Admin: 07/11/17 10:48 Dose: 81 mg Clonidine HCl (Catapres) 0.1 mg PO TID [facility] Last Admin: 07/11/17 13:44 Dose: 0.1 mg Epoetin Pieter (Procrit) 10,000 unit SC TTS [facility] Last Admin: 07/11/17 10:50 Dose: 10,000 unit Famotidine (Pepcid) 20 mg IVP DAILY [facility] Last Admin: 07/11/17 10:50 Dose: 20 mg Ferric Sodium Gluconate Complex (Ferrlecit) 125 mg IVPB DAILY [facility] Stop: 07/15/17 23:21 Last Admin: 07/11/17 10:48 Dose: 125 mg Furosemide (Lasix) 40 mg IVP Q12 [facility] Last Admin: 07/11/17 10:49 Dose: 40 mg Hydralazine HCl (Apresoline) 10 mg IVP Q6H [facility] Last Admin: 07/11/17 10:48 Dose: 10 mg Piperacillin Sod/Tazobactam Sod (Zosyn 2.25 Gm Iv Premix) 2.25 gm in 50 mls @ 100 mls/hr IVPB Q6H [facility] Last Admin: 07/11/17 10:52 Dose: 100 mls/hr Insulin Glargine (Lantus) 10 unit SC DAILY [facility] Last Admin: 07/11/17 12:41 Dose: 10 u Insulin Human Regular (Novolin R) 0 unit SC Q6H [facility] PRN Reason: Protocol Last Admin: 07/11/17 12:40 Dose: 6 unit Losartan Potassium (Cozaar) 50 mg PO BID [facility] Last Admin: 07/06/17 09:34 Dose: 50 mg Methylprednisolone (Solu-Medrol) 40 mg IV Q8 [facility] Last Admin: 07/11/17 13:45 Dose: 40 mg Metoprolol Tartrate (Lopressor) 50 mg PO BID [facility] Last Admin: 07/11/17 10:50 Dose: 50 mg Rosuvastatin Calcium (Crestor) 10 mg PO HS [facility] Last Admin: 07/10/17 22:57 Dose: 10 mg Fluticasone/Salmeterol (Advair Diskus 250/50) 1 puff INH RQ12 [facility] Last Admin: 07/11/17 07:37 Dose: 1 puff Tiotropium [place] (Spiriva) 18 mcg INH RQ24 [facility] Last Admin: 07/11/17 12:23 Dose: 18 mcg Vitamin B Complex/Vit C/Folic Acid (Nephro-Lc) 1 tab PO 0800 [facility] Last Admin: 07/11/17 08:15 Dose: 1 tab - Labs Labs: 07/11/17 06:07 07/09/17 06:23 PT 13.6 SECONDS (9.7-12.2) H 07/06/17 06:28 INR 1.2 07/06/17 06:28 APTT 33 SECONDS (21-34) D 07/06/17 06:28
--- NOTE | 2017-07-11 16:40 | CP.PCM.PN ---
Subjective - Date & Time of Evaluation Date of Evaluation: 07/11/17 Time of Evaluation: 13:35 - Subjective Subjective: patient seen and examined. Much more awake and responsive No shortness of breath Afebrile Objective - Vital Signs/Intake and Output Vital Signs (last 24 hours): Temp Pulse Resp BP Pulse Ox 98 F 84 20 172/94 H 99 07/11/17 16:00 07/11/17 16:00 07/11/17 16:00 07/11/17 16:00 07/11/17 16:00 Intake and Output: 07/11/17 07/11/17 06:59 18:59 Intake Total 340 Output Total 700 Balance 340 -700 - Medications Medications: Current Medications Acetaminophen (Tylenol 650mg/20.3ml Solution Ud) 650 mg PO Q6 PRN PRN Reason: Fever 100.6 and above Last Admin: 07/06/17 11:58 Dose: 650 mg Albuterol/Ipratropium (Duoneb 3 Mg/0.5 Mg (3 Ml) Ud) 3 ml INH RQ6 [facility] Last Admin: 07/11/17 07:35 Dose: 3 ml Amlodipine Besylate (Norvasc) 10 mg PO DAILY [facility] Last Admin: 07/11/17 12:40 Dose: 10 mg Aspirin (Aspirin Chewable) 81 mg PO DAILY [facility] Last Admin: 07/11/17 10:48 Dose: 81 mg Clonidine HCl (Catapres) 0.1 mg PO TID [facility] Last Admin: 07/11/17 13:44 Dose: 0.1 mg Epoetin [place] (Procrit) 10,000 unit SC TTS [facility] Last Admin: 07/11/17 10:50 Dose: 10,000 unit Famotidine (Pepcid) 20 mg IVP DAILY [facility] Last Admin: 07/11/17 10:50 Dose: 20 mg Ferric Sodium Gluconate Complex (Ferrlecit) 125 mg IVPB DAILY [facility] Stop: 07/15/17 23:21 Last Admin: 07/11/17 10:48 Dose: 125 mg Furosemide (Lasix) 40 mg IVP Q12 [facility] Last Admin: 07/11/17 10:49 Dose: 40 mg Hydralazine HCl (Apresoline) 10 mg IVP Q6H [facility] Last Admin: 07/11/17 10:48 Dose: 10 mg Piperacillin Sod/Tazobactam Sod (Zosyn 2.25 Gm Iv Premix) 2.25 gm in 50 mls @ 100 mls/hr IVPB Q6H [facility] Last Admin: 07/11/17 10:52 Dose: 100 mls/hr Insulin Glargine (Lantus) 10 unit SC DAILY [facility] Last Admin: 07/11/17 12:41 Dose: 10 u Insulin Human Regular (Novolin R) 0 unit SC Q6H [facility] PRN Reason: Protocol Last Admin: 07/11/17 12:40 Dose: 6 unit Losartan Potassium (Cozaar) 50 mg PO BID [facility] Last Admin: 07/06/17 09:34 Dose: 50 mg Methylprednisolone (Solu-Medrol) 40 mg IV Q8 [facility] Last Admin: 07/11/17 13:45 Dose: 40 mg Metoprolol Tartrate (Lopressor) 50 mg PO BID [facility] Last Admin: 07/11/17 10:50 Dose: 50 mg Rosuvastatin Calcium (Crestor) 10 mg PO HS [facility] Last Admin: 07/10/17 22:57 Dose: 10 mg Fluticasone/Salmeterol (Advair Diskus 250/50) 1 puff INH RQ12 [facility] Last Admin: 07/11/17 07:37 Dose: 1 puff Tiotropium [place] (Spiriva) 18 mcg INH RQ24 [facility] Last Admin: 07/11/17 12:23 Dose: 18 mcg Vitamin B Complex/Vit C/Folic Acid (Nephro-Lc) 1 tab PO 0800 [facility] Last Admin: 07/11/17 08:15 Dose: 1 tab - Labs Labs: 07/11/17 06:07 07/09/17 06:23 PT 13.6 SECONDS (9.7-12.2) H 07/06/17 06:28 INR 1.2 07/06/17 06:28 APTT 33 SECONDS (21-34) D 07/06/17 06:28 - Head Exam Head Exam: ATRAUMATIC, NORMOCEPHALIC - Eye Exam Eye Exam: Normal appearance - ENT Exam ENT Exam: Mucous Membranes Moist - Neck Exam Neck Exam: Normal Inspection - Respiratory Exam Respiratory Exam: Decreased Breath Sounds - Cardiovascular Exam Cardiovascular Exam: REGULAR RHYTHM - GI/Abdominal Exam GI & Abdominal Exam: Soft, Normal Bowel Sounds - Extremities Exam Extremities Exam: Full ROM, Pedal Edema Assessment and Plan (1) Hypercapnic respiratory failure, chronic Assessment & Plan: Continue IV steroids and nebulize treatment BiPAP as needed Continue diuretics Physical therapy Status: Acute (2) Elevated troponin Status: Acute (3) Pulmonary edema Status: Acute (4) Hypoglycemia Status: Acute
[2017-07-11 17:24] LABS: POTASSIUM 4.5 mmol/L (3.6-5.2)
[2017-07-11 17:28] LABS: CALCIUM 8.5 mg/dl (8.6-10.4)
--- NOTE | 2017-07-11 23:15 | CP.PCM.PN ---
Subjective - Date & Time of Evaluation Date of Evaluation: 07/11/17 Time of Evaluation: 12:10 - Subjective Subjective: Patient seen and evaluated Off BiPAP Not in distress Still confused Physical Examination - Constitutional Appears: Non-toxic, No Acute Distress - Head Exam Head Exam: ATRAUMATIC, NORMAL INSPECTION, NORMOCEPHALIC - Eye Exam Eye Exam: EOMI, PERRL - ENT Exam ENT Exam: Mucous Membranes Moist - Neck Exam Neck Exam: Full ROM - Respiratory Exam Respiratory Exam: absent: Wheezes - Cardiovascular Exam Cardiovascular Exam: +S1, +S2 - GI/Abdominal Exam GI & Abdominal Exam: Soft, Normal Bowel Sounds - Extremities Exam Extremities Exam: Normal Capillary Refill, Pedal Edema (1+ pitting). absent: Tenderness - Psychiatric Exam Psychiatric exam: Flat Affect - Skin Skin Exam: Dry, Normal Color, Warm Objective - Vital Signs/Intake and Output Vital Signs (last 24 hours): Temp Pulse Resp BP Pulse Ox 98 F 99 H 20 172/94 H 99 07/11/17 16:00 07/11/17 16:44 07/11/17 16:00 07/11/17 22:00 07/11/17 16:44 Intake and Output: 07/11/17 07/12/17 18:59 06:59 Output Total 700 Balance -700 - Medications Medications: Current Medications Acetaminophen (Tylenol 650mg/20.3ml Solution Ud) 650 mg PO Q6 PRN PRN Reason: Fever 100.6 and above Last Admin: 07/06/17 11:58 Dose: 650 mg Albuterol/Ipratropium (Duoneb 3 Mg/0.5 Mg (3 Ml) Ud) 3 ml INH RQ6 [facility] Last Admin: 07/11/17 19:54 Dose: 3 ml Alprazolam (Xanax) 0.25 mg PO DAILY [facility] PRN Reason: Anxiety Stop: 07/19/17 10:01 Last Admin: 07/11/17 21:48 Dose: 0.25 mg Amlodipine Besylate (Norvasc) 10 mg PO DAILY [facility] Last Admin: 07/11/17 12:40 Dose: 10 mg Aspirin (Aspirin Chewable) 81 mg PO DAILY [facility] Last Admin: 07/11/17 10:48 Dose: 81 mg Clonidine HCl (Catapres) 0.1 mg PO TID [facility] Last Admin: 07/11/17 17:25 Dose: 0.1 mg Epoetin [place] (Procrit) 10,000 unit SC TTS [facility] Last Admin: 07/11/17 10:50 Dose: 10,000 unit Famotidine (Pepcid) 20 mg IVP DAILY [facility] Last Admin: 07/11/17 10:50 Dose: 20 mg Ferric Sodium Gluconate Complex (Ferrlecit) 125 mg IVPB DAILY [facility] Stop: 07/15/17 23:21 Last Admin: 07/11/17 10:48 Dose: 125 mg Furosemide (Lasix) 40 mg IVP Q12 [facility] Last Admin: 07/11/17 22:00 Dose: 40 mg Hydralazine HCl (Apresoline) 10 mg IVP Q6H [facility] Last Admin: 07/11/17 23:04 Dose: 10 mg Insulin Glargine (Lantus) 10 unit SC DAILY [facility] Last Admin: 07/11/17 12:41 Dose: 10 u Insulin Human Regular (Novolin R) 0 unit SC Q6H [facility] PRN Reason: Protocol Last Admin: 07/11/17 17:34 Dose: 6 unit Losartan Potassium (Cozaar) 50 mg PO BID [facility] Last Admin: 07/06/17 09:34 Dose: 50 mg Methylprednisolone (Solu-Medrol) 40 mg IV Q8 [facility] Last Admin: 07/11/17 22:00 Dose: 40 mg Metoprolol Tartrate (Lopressor) 50 mg PO BID [facility] Last Admin: 07/11/17 17:25 Dose: 50 mg Rosuvastatin Calcium (Crestor) 10 mg PO HS [facility] Last Admin: 07/11/17 21:48 Dose: 10 mg Fluticasone/Salmeterol (Advair Diskus 250/50) 1 puff INH RQ12 [facility] Last Admin: 07/11/17 19:53 Dose: 1 puff Tiotropium [place] (Spiriva) 18 mcg INH RQ24 [facility] Last Admin: 07/11/17 12:23 Dose: 18 mcg Vitamin B Complex/Vit C/Folic Acid (Nephro-Lc) 1 tab PO 0800 [facility] Last Admin: 07/11/17 08:15 Dose: 1 tab - Labs Labs: 07/11/17 06:07 07/11/17 17:14 PT 13.6 SECONDS (9.7-12.2) H 07/06/17 06:28 INR 1.2 07/06/17 06:28 APTT 33 SECONDS (21-34) D 07/06/17 06:28 Assessment and Plan - Assessment and Plan (Free Text) Assessment: Elevated Troponin Assessment and Plan: Mildly elevated but later trended down: It could have been due to ischemic changes but may also be due to CHF exacerbation as well No ST segment changes appreciated on EKG 07/06 Cont to monitor Status: Acute CHF exacerbation Assessment and Plan: S/P intubation due to resp distress on 07/05. Will likely be extubated soon. On IV Lasix 40 IV Q12 ECHO: EF 65%, mild calcified thickening of aortic valve. Refer to complete report Status: Acute Hypertension Assessment and Plan: On Metoprolol, Cozaar and Hydralazine Elevated overnight. Cont to monitor. Avoid IVF Status: Chronic History of coronary artery bypass graft Assessment and Plan: Crestor 10 mg PO HS On Metoprolol BID, ASA daily. Would like Neuro clearance before cardiac cath is performed. Patient would benefit from MRI/MRA to visualize cerebral vasculature. Status: Chronic History of diabetes mellitus Assessment and Plan: Accuchecks Sliding scale Hold Parameters in place A1c 6.8 Status: Chronic History of TIA (transient ischemic attack) Assessment and Plan: 07/[address]- Intracranial arterial calcifications; stable chronic infarcts noted. Refer to full report. Would benefit from MRI of brain. EEG reviewed by Neuro- Slow wave activity noted w/o paroxysmal activity or focal slowing Neuro on the case. See above. Cont to monitor Status: Acute Hypercholesterolemia Assessment and Plan: On Crestor Would benefit from diet and exercise modifications following current hospital course Status: Chronic Family history of cerebral aneurysm Assessment and Plan: Strong family history. Patient's counseled on the importance of imaging for children to rule out aneurysms. Head CT did not appear to show signs of aneurysmal disease. Neuro on case for AMS Status: Acute Prophylactic measure Assessment and Plan: SCDs contraindicated due to swelling Heparin SC Q12 Pepcid 20 mg IV daily Status: Acute
--- NOTE | 2017-07-11 23:47 | PN ---
DATE: FOLLOWUP RENAL CONSULTATION LOCATION: The patient is located in room number 663, bed A. REQUESTED BY: Paola Adams MD REASON FOR FOLLOWUP: Increased BUN and creatinine and . HISTORY OF PRESENT ILLNESS: Mr. Haris Flowers is a 67-year-old elderly obese [place] male with past medical history significant for long-standing hypertension, diabetes, hyperlipidemia, coronary artery disease, status post CABG, and multiple CVA, was admitted with chief complaints of altered mental status, hypoglycemia, shortness of breath, and fluid overload. Initially, the patient was admitted to ICU for management of hypoglycemia. Subsequently, his hospital course complicated by respiratory failure requiring intubation. The patient was extubation three days ago. The patient is now feeling better, not in acute distress and denies chest pain or palpitation. Denies any fever or cough. No abdominal pain and no nausea, vomiting, or diarrhea. No edema of the legs today. PHYSICAL EXAMINATION: VITAL SIGNS: As follows: Blood pressure of 172/94, pulse of 84, respirations of 20, temperature of 98, and oxygen saturation of 99%. Height is 5 feet 6 inches and weight is 186 pounds. GENERAL: Mr. Haris Flowers is a 67-year-old elderly obese [place] male, well built and well nourished, not in distress. HEENT: Pupils are normally reactive to light and accommodation. Conjunctivae are pink. Sclerae are anicteric. Tongue is moist. Trachea is midline. LUNGS: Symmetric on both sides. Bilateral breath sounds present. Clear to auscultation. CARDIOVASCULAR SYSTEM: Left Hand at the fifth intercostal space, midclavicular. S1 and S2 audible. No murmur or gallop. The patient has a midsternal scar present from the previous CABG. ABDOMEN: Normal in appearance, soft, and tympanic. No guarding. No rigidity. No hepatosplenomegaly. CENTRAL NERVOUS SYSTEM: The patient is alert, awake, and oriented x3. Nonfocal on examination. Cranial nerves II through XII grossly intact. Sensory and motor system grossly within normal limits. EXTREMITIES: No cyanosis. No clubbing. No edema. MEDICATIONS: His current medications include Advair inhaler one puff q. 12 hours, hydralazine 10 mg IV q. 6 hours., aspirin 81 mg daily, clonidine 0.1 mg p.o. t.i.d., losartan on hold and Crestor 10 mg at bedtime, DuoNeb inhaler, ferrous gluconate 125 mg daily, and Lasix 40 mg q. 12 hours., metoprolol 50 mg p.o. b.i.d., amlodipine 10 mg daily, and famotidine 20 mg IV daily, and Epogen 10,000 units 3 times a week, and methylprednisolone 40 mg IV q. 8 hours., and Spiriva and acetaminophen 650 mg p.o. q. 6 hours. LABORATORY DATA: Include as follows: As of 07/11/2017, WBC of 4.9, hemoglobin of 9.7, hematocrit is 30.7, and platelets of 227, neutrophils of 88, bands of 2, lymphocytes of 7, and monocytes of 3. BMP: Sodium of 134, potassium of 4.5, chloride of 95, CO2 of 30, BUN of 62, creatinine of 2.4, glucose is 585, and calcium of 8.5. ASSESSMENT: In summary, Mr. Flowers is a 67-year-old elderly obese [place] male with a history of hypertension, diabetes, coronary artery disease, status post coronary artery bypass graft, hyperlipidemia, and cerebrovascular accident who was admitted with altered mental status and hypoglycemia after taking insulin and shortness of breath, increased BUN and creatinine, and low hemoglobin and hematocrit. 1. Renal failure, acute on chronic kidney disease most likely secondary to vigorous diuresis. Renal function is slowly improving. 2. Chronic kidney disease stage III most likely secondary to diabetic nephropathy. 3. Hypertension. Blood pressure is still high. Increase clonidine to 0.2 mg p.o. q. 8 hours. 4. Anemia secondary to iron deficiency anemia. Continue ferrous gluconate and Epogen and also continue low sodium diet 2 g per day. Thank you for allowing me to participate in your patient's care. Susana Jones MD
[2017-07-12] MEDS: (Novolin R) Insulin Human Regular 100 units/ml vial SC SCH ×4 (00:26→17:37)
[2017-07-12] MEDS: Albuterol-Ipratrop 3 mg / 0.5 (3 ml) UD INH SCH ×4 (01:41→19:34)
[2017-07-12] MEDS: MethylPREDNISolone 40 mg Vial IV SCH ×2 (06:32→13:56)
[2017-07-12] MEDS: Tiotropium 18 mcg Cap For Inhalation INH SCH (07:30)
[2017-07-12] MEDS: Fluticasone-Salmeterol 250-50mcg Diskus INH SCH ×2 (07:30→19:35)
[2017-07-12] MEDS: Multivitamin Vitamin B Complex (Nephro-Vite) Tab PO SCH (07:53)
[2017-07-12] MEDS: Ferric Sodium Gluconat Complex 62.5 mg/5 ml Vial IVPB SCH (10:37)
[2017-07-12] MEDS: (Lantus) Insulin Glargine, Recombinant SC SCH (10:38)
--- NOTE | 2017-07-12 12:33 | PN ---
DATE: SUBJECTIVE: The patient was seen. The patient was very restless. According to the nurse, he was taking Ativan but the patient was trying to get out of bed, where he was trying to leave. We gave him Xanax 0.25 mg p.o. b.i.d., tolerating it without any worsening of his respiratory function. He was resting comfortably in his room still with close monitoring. The patient is able to eat his breakfast. PHYSICAL EXAMINATION: VITAL SIGNS: Temperature is 97.6, pulse rate is 86, blood pressure is 174/92, respirations 20, and oxygen saturations is 96%. GENERAL: The patient is sleepy, but arousable, oriented x3, conversing in Tag[place]. He said he is feeling better. SKIN: No diaphoresis. HEENT: No headache. No dizziness. NECK: Supple. RESPIRATORY: No dyspnea. CARDIOVASCULAR: No chest pain. GASTROINTESTINAL: Appetite is fair. EXTREMITIES: The patient is moving extremities. MUSCULOSKELETAL: Still feels weak. NEUROLOGIC: Alert and oriented x3. MENTAL STATUS EXAMINATION: Elderly [place] male, obese. Seen in his room. Oriented x3. Somewhat drowsy. Speech spontaneous. Affect is reactive. Mood is anxious at times. Thought process coherent. Thought content, no overt psychosis. No suicidal or homicidal ideation. The patient is preoccupied to go home. Still looking for his . Attention and memory seems to be improving. Insight and judgment improving. Impulse control is fair at this time. 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 RECOMMENDATIONS: The patient is seen. Medications reviewed. Continue present management. We will keep the patient on Xanax 0.25 mg p.o. b.i.d. p.r.n. for severe anxiety and restlessness. The patient seems to tolerate better than the Ativan. He was given last night Xanax to calm him down. The patient had been given two doses and seems to tolerate it. Continue treatment plan as outlined. Ren Kyle MD
[2017-07-12] MEDS ORDERED: (Lantus) Insulin Glargine, Recombinant SC SCH ×2 (18:32→22:30)
--- NOTE | 2017-07-12 18:34 | CP.PCM.PN ---
Subjective - Date & Time of Evaluation Date of Evaluation: 07/12/17 Time of Evaluation: 09:40 - Subjective Subjective: Patient seen, in bed- has one on one - was agitated in the morning - currently quiet, had received xanax earlier , breathing room air Objective - Vital Signs/Intake and Output Vital Signs (last 24 hours): Temp Pulse Resp BP Pulse Ox 97.6 F 75 20 140/91 H 96 07/12/17 08:22 07/12/17 18:09 07/12/17 08:22 07/12/17 14:03 07/12/17 08:22 - Medications Medications: Current Medications Acetaminophen (Tylenol 650mg/20.3ml Solution Ud) 650 mg PO Q6 PRN PRN Reason: Fever 100.6 and above Last Admin: 07/06/17 11:58 Dose: 650 mg Albuterol/Ipratropium (Duoneb 3 Mg/0.5 Mg (3 Ml) Ud) 3 ml INH RQ6 [facility] Last Admin: 07/12/17 13:42 Dose: Not Given Alprazolam (Xanax) 0.25 mg PO BID PRN PRN Reason: Anxiety Stop: 07/19/17 00:01 Last Admin: 07/12/17 00:17 Dose: 0.25 mg Amlodipine Besylate (Norvasc) 10 mg PO DAILY [facility] Last Admin: 07/12/17 10:39 Dose: 10 mg Aspirin (Aspirin Chewable) 81 mg PO DAILY [facility] Last Admin: 07/12/17 10:37 Dose: 81 mg Clonidine HCl (Catapres) 0.1 mg PO TID [facility] Last Admin: 07/12/17 17:17 Dose: 0.1 mg Epoetin Pieter (Procrit) 10,000 unit SC TTS [facility] Last Admin: 07/11/17 10:50 Dose: 10,000 unit Famotidine (Pepcid) 20 mg IVP DAILY [facility] Last Admin: 07/12/17 10:39 Dose: 20 mg Ferric Sodium Gluconate Complex (Ferrlecit) 125 mg IVPB DAILY [facility] Stop: 07/15/17 23:21 Last Admin: 07/12/17 10:37 Dose: 125 mg Furosemide (Lasix) 40 mg IVP Q12 [facility] Last Admin: 07/12/17 10:38 Dose: 40 mg Hydralazine HCl (Apresoline) 10 mg IVP Q6H [facility] Last Admin: 07/12/17 17:17 Dose: 10 mg Insulin Human Regular (Novolin R) 0 unit SC Q6H [facility] PRN Reason: Protocol Last Admin: 07/12/17 17:37 Dose: 4 unit Losartan Potassium (Cozaar) 50 mg PO BID [facility] Last Admin: 07/06/17 09:34 Dose: 50 mg Metoprolol Tartrate (Lopressor) 50 mg PO BID [facility] Last Admin: 07/12/17 17:17 Dose: 50 mg Prednisone (Prednisone Tab) 40 mg PO DAILY [facility] Rosuvastatin Calcium (Crestor) 10 mg PO HS [facility] Last Admin: 07/11/17 21:48 Dose: 10 mg Fluticasone/Salmeterol (Advair Diskus 250/50) 1 puff INH RQ12 [facility] Last Admin: 07/12/17 07:30 Dose: 1 puff Tiotropium [place] (Spiriva) 18 mcg INH RQ24 [facility] Last Admin: 07/12/17 07:30 Dose: Not Given Vitamin B Complex/Vit C/Folic Acid (Nephro-Lc) 1 tab PO 0800 [facility] Last Admin: 07/12/17 07:53 Dose: 1 tab - Labs Labs: 07/11/17 06:07 07/11/17 17:14 PT 13.6 SECONDS (9.7-12.2) H 07/06/17 06:28 INR 1.2 07/06/17 06:28 APTT 33 SECONDS (21-34) D 07/06/17 06:28 - Constitutional Appears: No Acute Distress (quit sleepy drowsy- post medication) - Head Exam Head Exam: ATRAUMATIC, NORMOCEPHALIC - Eye Exam Eye Exam: absent: Nystagmus, Periorbital swelling - ENT Exam ENT Exam: Mucous Membranes Moist - Neck Exam Neck Exam: Full ROM. absent: Tenderness - Respiratory Exam Respiratory Exam: Decreased Breath Sounds, NORMAL BREATHING PATTERN. absent: Rhonchi, Wheezes - Cardiovascular Exam Cardiovascular Exam: REGULAR RHYTHM - GI/Abdominal Exam GI & Abdominal Exam: Soft, Normal Bowel Sounds. absent: Tenderness - Extremities Exam Extremities Exam: Pedal Edema - Neurological Exam Neurological Exam: Altered (post medication) - Skin Skin Exam: Intact, Normal Color Assessment and Plan - Assessment and Plan (Free Text) Assessment: Patient with IDDM2- with increasing sugar- secondary to steroid fo COPD- will shift steroid to PO-and taper, and adjust insulin CRI CHF on Lasix IV CAD CABG Elevated TROPONINS CHF - further cardiac evaluation HYpertension monitoring adjust meds accordingly Debility- PT and plan for subacute accordingly
--- NOTE | 2017-07-12 22:14 | CP.PCM.PN ---
Subjective - Date & Time of Evaluation Date of Evaluation: 07/12/17 Time of Evaluation: 20:10 - Subjective Subjective: Patient seen and evaluated Improved breathing Not in distress Physical Examination - Constitutional Appears: Non-toxic, No Acute Distress - Head Exam Head Exam: ATRAUMATIC, NORMAL INSPECTION, NORMOCEPHALIC - Eye Exam Eye Exam: EOMI, PERRL - ENT Exam ENT Exam: Mucous Membranes Moist - Neck Exam Neck Exam: Full ROM - Respiratory Exam Respiratory Exam: absent: Wheezes - Cardiovascular Exam Cardiovascular Exam: +S1, +S2 - GI/Abdominal Exam GI & Abdominal Exam: Soft, Normal Bowel Sounds - Extremities Exam Extremities Exam: Normal Capillary Refill, Pedal Edema (1+ pitting). absent: Tenderness - Psychiatric Exam Psychiatric exam: Flat Affect - Skin Skin Exam: Dry, Normal Color, Warm Objective - Vital Signs/Intake and Output Vital Signs (last 24 hours): Temp Pulse Resp BP Pulse Ox 98.2 F 68 20 142/85 100 07/12/17 15:30 07/12/17 20:00 07/12/17 15:30 07/12/17 21:18 07/12/17 15:30 - Medications Medications: Current Medications Acetaminophen (Tylenol 650mg/20.3ml Solution Ud) 650 mg PO Q6 PRN PRN Reason: Fever 100.6 and above Last Admin: 07/06/17 11:58 Dose: 650 mg Albuterol/Ipratropium (Duoneb 3 Mg/0.5 Mg (3 Ml) Ud) 3 ml INH RQ6 [facility] Last Admin: 07/12/17 19:34 Dose: 3 ml Alprazolam (Xanax) 0.25 mg PO BID PRN PRN Reason: Anxiety Stop: 07/19/17 00:01 Last Admin: 07/12/17 00:17 Dose: 0.25 mg Amlodipine Besylate (Norvasc) 10 mg PO DAILY [facility] Last Admin: 07/12/17 10:39 Dose: 10 mg Aspirin (Aspirin Chewable) 81 mg PO DAILY [facility] Last Admin: 07/12/17 10:37 Dose: 81 mg Clonidine HCl (Catapres) 0.1 mg PO TID [facility] Last Admin: 07/12/17 17:17 Dose: 0.1 mg Epoetin Pieter (Procrit) 10,000 unit SC TTS [facility] Last Admin: 07/11/17 10:50 Dose: 10,000 unit Famotidine (Pepcid) 20 mg IVP DAILY [facility] Last Admin: 07/12/17 10:39 Dose: 20 mg Ferric Sodium Gluconate Complex (Ferrlecit) 125 mg IVPB DAILY [facility] Stop: 07/15/17 23:21 Last Admin: 07/12/17 10:37 Dose: 125 mg Furosemide (Lasix) 40 mg IVP Q12 [facility] Last Admin: 07/12/17 21:18 Dose: 40 mg Hydralazine HCl (Apresoline) 10 mg IVP Q6H [facility] Last Admin: 07/12/17 17:17 Dose: 10 mg Insulin Glargine (Lantus) 12 unit SC DAILY [facility] Insulin Human Regular (Novolin R) 0 unit SC Q6H [facility] PRN Reason: Protocol Last Admin: 07/12/17 17:37 Dose: 4 unit Losartan Potassium (Cozaar) 50 mg PO BID [facility] Last Admin: 07/06/17 09:34 Dose: 50 mg Metoprolol Tartrate (Lopressor) 50 mg PO BID [facility] Last Admin: 07/12/17 17:17 Dose: 50 mg Prednisone (Prednisone Tab) 40 mg PO DAILY [facility] Rosuvastatin Calcium (Crestor) 10 mg PO HS [facility] Last Admin: 07/12/17 21:21 Dose: Not Given Fluticasone/Salmeterol (Advair Diskus 250/50) 1 puff INH RQ12 [facility] Last Admin: 07/12/17 19:35 Dose: Not Given Tiotropium [place] (Spiriva) 18 mcg INH RQ24 [facility] Last Admin: 07/12/17 07:30 Dose: Not Given Vitamin B Complex/Vit C/Folic Acid (Nephro-Lc) 1 tab PO 0800 [facility] Last Admin: 07/12/17 07:53 Dose: 1 tab - Labs Labs: 07/11/17 06:07 07/11/17 17:14 PT 13.6 SECONDS (9.7-12.2) H 07/06/17 06:28 INR 1.2 07/06/17 06:28 APTT 33 SECONDS (21-34) D 07/06/17 06:28 Assessment and Plan - Assessment and Plan (Free Text) Assessment: Elevated Troponin Assessment and Plan: Mildly elevated but later trended down: It could have been due to ischemic changes but may also be due to CHF exacerbation as well No ST segment changes appreciated on EKG 07/06 Cont to monitor Status: Acute CHF exacerbation Assessment and Plan: S/P intubation due to resp distress on 07/05. Will likely be extubated soon. On IV Lasix 40 IV Q12 ECHO: EF 65%, mild calcified thickening of aortic valve. Refer to complete report Status: Acute Hypertension Assessment and Plan: On Metoprolol, Cozaar and Hydralazine Elevated overnight. Cont to monitor. Avoid IVF Status: Chronic History of coronary artery bypass graft Assessment and Plan: Crestor 10 mg PO HS On Metoprolol BID, ASA daily. Would like Neuro clearance before cardiac cath is performed. Patient would benefit from MRI/MRA to visualize cerebral vasculature. Status: Chronic History of diabetes mellitus Assessment and Plan: Accuchecks Sliding scale Hold Parameters in place A1c 6.8 Status: Chronic History of TIA (transient ischemic attack) Assessment and Plan: 07/[address]- Intracranial arterial calcifications; stable chronic infarcts noted. Refer to full report. Would benefit from MRI of brain. EEG reviewed by Neuro- Slow wave activity noted w/o paroxysmal activity or focal slowing Neuro on the case. See above. Cont to monitor Status: Acute Hypercholesterolemia Assessment and Plan: On Crestor Would benefit from diet and exercise modifications following current hospital course Status: Chronic Family history of cerebral aneurysm Assessment and Plan: Strong family history. Patient's counseled on the importance of imaging for children to rule out aneurysms. Head CT did not appear to show signs of aneurysmal disease. Neuro on case for AMS Status: Acute Prophylactic measure Assessment and Plan: SCDs contraindicated due to swelling Heparin SC Q12 Pepcid 20 mg IV daily Status: Acute
[2017-07-13] MEDS: (Novolin R) Insulin Human Regular 100 units/ml vial SC SCH ×4 (00:46→18:11)
[2017-07-13] MEDS: Albuterol-Ipratrop 3 mg / 0.5 (3 ml) UD INH SCH ×4 (01:15→19:15)
--- NOTE | 2017-07-13 06:48 | PN ---
DATE: 07/11/2017 SUBJECTIVE: The patient is seen. The patient is more alert and verbal today. He was eating food. His brought him some food from home. The patient was taking Ativan and he became very lethargic with it. It seems like the patient is very sensitive to anxiolytic, but he has been re-directable at this time. According to the , the patient is constantly calling for and asking the whereabouts of his , but this is a chronic problem. The patient is generally manageable. He is also expressing desire to go home, but I told him he might benefit from subacute rehab and his as well as the patient is willing if there is a need for him to go for subacute rehab. No major behavioral problems noted, but then staff has been monitoring closely for behavior. PHYSICAL EXAMINATION: VITAL SIGNS: Temperature is 97.8, pulse is 87, blood pressure 176/107, respirations 20, and oxygen saturation 96%. GENERAL: Alert and oriented x3, seen in his room, resting, not in acute respiratory distress, conversing in Tagalog, seen with . SKIN: No diaphoresis. HEENT: No headache or dizziness. NECK: Supple. RESPIRATORY: Not in acute respiratory distress. CARDIOVASCULAR: No chest pain. GASTROINTESTINAL: Eating much better compared to yesterday. The patient was eating some home made food. EXTREMITIES: The patient has been bed bound but moving extremities. NEUROLOGIC: Alert and oriented x3. GENITOURINARY: No dysuria. MENTAL STATUS EXAMINATION: A [place] male elderly who is about 5 feet 6 inches and 186 pounds, somewhat obese. Mood is brighter. Affect is reactive. Speech spontaneous. Thought process coherent. Thought content, no overt psychosis. The patient also expressing desire if he can be discharged to home, but he is willing to go for subacute rehab. As stated, no psychosis. No suicidal or homicidal ideation. Attention and memory seems to be improving. Insight and judgement improving. Impulse control is fair at this time. 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 PLAN AND RECOMMENDATIONS: The patient is seen, medications reviewed. Continue present management. We will keep the patient off psych medications for now. Considering he is quite delusional, we will deal with this once the patient is more medically stable. The patient also is amendable to go for subacute rehab, but the patient's is requesting to any rehab that is more accessible to public transportation as she does not drive. She wants something that is close, easier for her to visit the patient, especially the patient has delusion that the is having an affair and wants the to be with him most of the time. Ren Kyle MD [facility]
[2017-07-13] MEDS: Tiotropium 18 mcg Cap For Inhalation INH SCH (07:21)
[2017-07-13] MEDS: Fluticasone-Salmeterol 250-50mcg Diskus INH SCH ×2 (07:22→19:15)
[2017-07-13] MEDS: Multivitamin Vitamin B Complex (Nephro-Vite) Tab PO SCH (08:31)
--- NOTE | 2017-07-13 09:27 | PN ---
DATE: 07/13/2017 SUBJECTIVE: The patient is stable, awake, comfortably lying down with BiPAP and oxygen supplementation. The patient examination is unchanged. Cranial nerve examination is good. Motor examination is good. Deep tendon reflexes are absent, plantars are downgoing. From neurostatus, the patient regained his back baseline activities and neurostatus. Recommended MRI of the brain and MRA is still pending. The patient will be followed closely while he is in the hospital. Arslan Carl MD
[2017-07-13] MEDS: Ferric Sodium Gluconat Complex 62.5 mg/5 ml Vial IVPB SCH (09:34)
--- NOTE | 2017-07-13 09:35 | CP.PCM.PN ---
<Augusta Madison - Last Filed: 07/13/17 11:43> Subjective - Date & Time of Evaluation Date of Evaluation: 07/13/17 Time of Evaluation: 09:00 - Subjective Subjective: Pulmonology Note for Dr. Alves's Service Patient was seen and examined at bedside. He was sitting up in the chair with 2L NC on. Patient was able to speak in full sentences which is a drastic improvement from when he was seen last Thursday. Patient reports he is able to lay down flat, ambulate to the bathroom without becoming SOB. Denied fever, chills, headache, chest pain, SOB, cough abdominal pain, n/v/d/c, or urinary symptoms. Objective - Vital Signs/Intake and Output Vital Signs (last 24 hours): Temp Pulse Resp BP Pulse Ox 97.0 F L 92 H 18 171/89 H 97 07/13/17 07:20 07/13/17 08:34 07/13/17 07:20 07/13/17 07:20 07/13/17 07:20 Intake and Output: 07/13/17 07/13/17 06:59 18:59 Intake Total 400 Balance 400 - Medications Medications: Current Medications Acetaminophen (Tylenol 650mg/20.3ml Solution Ud) 650 mg PO Q6 PRN PRN Reason: Fever 100.6 and above Last Admin: 07/06/17 11:58 Dose: 650 mg Albuterol/Ipratropium (Duoneb 3 Mg/0.5 Mg (3 Ml) Ud) 3 ml INH RQ6 [facility] Last Admin: 07/13/17 07:21 Dose: 3 ml Alprazolam (Xanax) 0.25 mg PO BID PRN PRN Reason: Anxiety Stop: 07/19/17 00:01 Last Admin: 07/12/17 00:17 Dose: 0.25 mg Amlodipine Besylate (Norvasc) 10 mg PO DAILY [facility] Last Admin: 07/12/17 10:39 Dose: 10 mg Aspirin (Aspirin Chewable) 81 mg PO DAILY [facility] Last Admin: 07/12/17 10:37 Dose: 81 mg Clonidine HCl (Catapres) 0.1 mg PO TID [facility] Last Admin: 07/12/17 17:17 Dose: 0.1 mg Epoetin Pieter (Procrit) 10,000 unit SC TTS [facility] Last Admin: 07/11/17 10:50 Dose: 10,000 unit Famotidine (Pepcid) 20 mg PO DAILY [facility] Ferric Sodium Gluconate Complex (Ferrlecit) 125 mg IVPB DAILY [facility] Stop: 07/15/17 23:21 Last Admin: 07/12/17 10:37 Dose: 125 mg Furosemide (Lasix) 40 mg IVP Q12 [facility] Last Admin: 07/12/17 21:18 Dose: 40 mg Hydralazine HCl (Apresoline) 10 mg IVP Q6H [facility] Last Admin: 07/13/17 06:20 Dose: 10 mg Insulin Glargine (Lantus) 12 unit SC HS [facility] Last Admin: 07/12/17 22:32 Dose: 12 units Insulin Human Regular (Novolin R) 0 unit SC Q6H [facility] PRN Reason: Protocol Last Admin: 07/13/17 06:21 Dose: 4 unit Losartan Potassium (Cozaar) 50 mg PO BID [facility] Last Admin: 07/06/17 09:34 Dose: 50 mg Metoprolol Tartrate (Lopressor) 50 mg PO BID [facility] Last Admin: 07/12/17 17:17 Dose: 50 mg Prednisone (Prednisone Tab) 40 mg PO DAILY [facility] Rosuvastatin Calcium (Crestor) 10 mg PO HS [facility] Last Admin: 07/12/17 21:21 Dose: Not Given Fluticasone/Salmeterol (Advair Diskus 250/50) 1 puff INH RQ12 [facility] Last Admin: 07/13/17 07:22 Dose: Not Given Tiotropium [place] (Spiriva) 18 mcg INH RQ24 [facility] Last Admin: 07/13/17 07:21 Dose: Not Given Vitamin B Complex/Vit C/Folic Acid (Nephro-Lc) 1 tab PO 0800 [facility] Last Admin: 07/13/17 08:31 Dose: 1 tab - Labs Labs: 07/11/17 06:07 07/11/17 17:14 PT 13.6 SECONDS (9.7-12.2) H 07/06/17 06:28 INR 1.2 07/06/17 06:28 APTT 33 SECONDS (21-34) D 07/06/17 06:28 - Constitutional Appears: No Acute Distress - Head Exam Head Exam: NORMAL INSPECTION, NORMOCEPHALIC - Eye Exam Eye Exam: EOMI, Normal appearance, PERRL Pupil Exam: NORMAL ACCOMODATION - ENT Exam ENT Exam: Mucous Membranes Moist, Normal Exam, Normal Oropharynx. absent: Mucous Membranes Dry - Neck Exam Neck Exam: Normal Inspection. absent: Lymphadenopathy, Thyromegaly - Respiratory Exam Respiratory Exam: Clear to Ausculation Bilateral, NORMAL BREATHING PATTERN. absent: Rales, Rhonchi, Wheezes - Cardiovascular Exam Cardiovascular Exam: REGULAR RHYTHM, RRR, +S1, +S2 - GI/Abdominal Exam GI & Abdominal Exam: Soft, Normal Bowel Sounds. absent: Distended, Tenderness - Extremities Exam Extremities Exam: Normal Inspection. absent: Pedal Edema, Tenderness - Neurological Exam Neurological Exam: Alert, Awake, Oriented x3 - Psychiatric Exam Psychiatric exam: Normal Affect, Normal Mood - Skin Skin Exam: Dry, Intact, Normal Color, Warm Assessment and Plan - Assessment and Plan (Free Text) Plan: Hypercapnic respiratory failure, chronic On admission patient was hypoglycemic, hypercapnic and hypotensive. Chest x-ray showed pulmonary edema. Patient was placed on BiPAP, repeat ABG improving hypercapnia. BiPAP PRN Duonebs Q6H Lasix 40mg IVP daily starting tomorrow 07/13/17 Prednisone 40mg PO daily --> will need to be tapered Spiriva 18mcg INH QD Advair 250/50 Q12H Hx of CHF ECHO 07/02/17: EF 65%, mild calcified thickening of aortic valve. Refer to complete report Episodes of VTACH Dr. Butler on consult Recommend EP consult - Dr. Wisdom - help appreciated Hx Obstructive sleep apnea/obesity hypoventilation syndrome History of TIA (transient ischemic attack) Family history of cerebral aneurysm AMS 07/[address]- Intracranial arterial calcifications; stable chronic infarcts noted. Refer to full report. Would benefit from MRI of brain. Head CT did not appear to show signs of aneurysmal disease. Neuro on case for AMS -brain MRI and head MRA ordered EEG reviewed by Neuro- Slow wave activity noted w/o paroxysmal activity or focal slowing As per neurology- brain MRI and head MRA ordered Cont to monitor DW Gricelda Barahona DO, PGY-1 <Atul Alves - Last Filed: 07/13/17 13:15> Objective - Vital Signs/Intake and Output Vital Signs (last 24 hours): Temp Pulse Resp BP Pulse Ox 97.0 F L 63 18 143/85 97 07/13/17 07:20 07/13/17 12:23 07/13/17 07:20 07/13/17 12:23 07/13/17 07:20 Intake and Output: 07/13/17 07/13/17 06:59 18:59 Intake Total 400 Balance 400 - Medications Medications: Current Medications Acetaminophen (Tylenol 650mg/20.3ml Solution Ud) 650 mg PO Q6 PRN PRN Reason: Fever 100.6 and above Last Admin: 07/06/17 11:58 Dose: 650 mg Albuterol/Ipratropium (Duoneb 3 Mg/0.5 Mg (3 Ml) Ud) 3 ml INH RQ6 [facility] Last Admin: 07/13/17 07:21 Dose: 3 ml Alprazolam (Xanax) 0.25 mg PO BID PRN PRN Reason: Anxiety Stop: 07/19/17 00:01 Last Admin: 07/12/17 00:17 Dose: 0.25 mg Amlodipine Besylate (Norvasc) 10 mg PO DAILY [facility] Last Admin: 07/13/17 09:34 Dose: 10 mg Aspirin (Aspirin Chewable) 81 mg PO DAILY [facility] Last Admin: 07/13/17 09:34 Dose: 81 mg Clonidine HCl (Catapres) 0.1 mg PO TID [facility] Last Admin: 07/13/17 09:34 Dose: 0.1 mg Epoetin [place] (Procrit) 10,000 unit SC TTS [facility] Last Admin: 07/11/17 10:50 Dose: 10,000 unit Famotidine (Pepcid) 20 mg PO DAILY [facility] Last Admin: 07/13/17 09:34 Dose: 20 mg Ferric Sodium Gluconate Complex (Ferrlecit) 125 mg IVPB DAILY [facility] Stop: 07/15/17 23:21 Last Admin: 07/13/17 09:34 Dose: 125 mg Furosemide (Lasix) 40 mg IVP DAILY [facility] Hydralazine HCl (Apresoline) 10 mg IVP Q6H [facility] Last Admin: 07/13/17 12:20 Dose: 10 mg Insulin Glargine (Lantus) 15 unit SC HS [facility] Insulin Human Regular (Novolin R) 0 unit SC Q6H [facility] PRN Reason: Protocol Last Admin: 07/13/17 12:29 Dose: 5 unit Losartan Potassium (Cozaar) 50 mg PO BID [facility] Last Admin: 07/06/17 09:34 Dose: 50 mg Metoprolol Tartrate (Lopressor) 50 mg PO BID [facility] Last Admin: 07/13/17 09:34 Dose: 50 mg Prednisone (Prednisone Tab) 40 mg PO DAILY [facility] Last Admin: 07/13/17 09:34 Dose: 40 mg Rosuvastatin Calcium (Crestor) 10 mg PO HS [facility] Last Admin: 07/12/17 21:21 Dose: Not Given Fluticasone/Salmeterol (Advair Diskus 250/50) 1 puff INH RQ12 [facility] Last Admin: 07/13/17 07:22 Dose: Not Given Tiotropium [place] (Spiriva) 18 mcg INH RQ24 [facility] Last Admin: 07/13/17 07:21 Dose: Not Given Vitamin B Complex/Vit C/Folic Acid (Nephro-Lc) 1 tab PO 0800 [facility] Last Admin: 07/13/17 08:31 Dose: 1 tab - Labs Labs: 07/13/17 12:39 07/13/17 12:39 PT 13.6 SECONDS (9.7-12.2) H 07/06/17 06:28 INR 1.2 07/06/17 06:28 APTT 33 SECONDS (21-34) D 07/06/17 06:28 Assessment and Plan (1) Hypercapnic respiratory failure, chronic Status: Acute (2) Elevated troponin Status: Acute (3) Pulmonary edema Status: Acute (4) Hypoglycemia Status: Acute Attending/Attestation - Attestation I have personally seen and examined this patient.: Yes I have fully participated in the care of the patient.: Yes I have reviewed all pertinent clinical information, including history, physical exam and plan: Yes Notes (Text): 07/13/17 13:14 patient seen and examined. Case discussed with resident Sameer calvo Comfortable sitting on chair in no respiratory distress Continue steroids and nebulizer treat Cardiology followup Continue diuretics Followup electrolytes and mag
--- NOTE | 2017-07-13 10:13 | MRI ---
PROCEDURE: MRI BRAIN WITHOUT CONTRAST HISTORY: brain stem stroke? COMPARISON: Head CT 07/06/2017. TECHNIQUE: Multiplanar, multisequence MR images of the brain were obtained without intravenous contrast enhancement. FINDINGS: The examination is heavily motion artifacted. HEMORRHAGE: None DWI: An acute or subacute lacunar infarction is identified at the right centrum semiovale region. No acute or subacute lobar infarction is identified at this time. BRAIN PARENCHYMA: Diffuse expansion of the ventriculosulcal and cisternal spaces is appreciated with white matter signal changes compatible with diffuse cerebral atrophy and chronic microangiopathy. There is no definite mass effect or suspicious extra-axial collection identified. Chronic lacunar infarcts are identified at the left basal ganglia anterior superiorly as well as of the right thalamus anteromedially, and at the right cerebellum inferiorly. VENTRICLES: Unremarkable. No hydrocephalus. CRANIUM: Unremarkable. ORBITS: Grossly unremarkable. PARANASAL SINUSES/MASTOIDS: Prominent left and mild right mastoid effusions are identified. VASCULAR SYSTEM: Skull base flow voids intact. OTHER FINDINGS: 1.4 cm sebaceous cyst is identified at the right occipital scalp inferiorly. IMPRESSION: 1. An acute subacute lacune or infarct is identified at the right centrum semiovale. No acute or subacute lobar brain infarction is identified throughout the exam. Chronic lacune infarcts are infrequent identified as discussed above and below the tentorium. 2. Mild age related neuro degenerative changes are identified. 3. Incidental prominent left mastoid effusions are identified with mild similar changes at the right side.
--- NOTE | 2017-07-13 10:27 | MRI ---
PROCEDURE: Magnetic Resonance Angiography Brain HISTORY: R/O intracranial aneurysm COMPARISON: None available. TECHNIQUE: 3D time of flight MR angiography of the intracranial arteries was performed. Rotating maximum intensity projection images were generated. FINDINGS: INTERNAL CAROTID ARTERIES: Unremarkable. The skull base and petrous segments are bilaterally widely patient. However, there is a length the moderate stenosis beginning at the intra canalicular segment of the right ICA which persists into the cavernous segment through the bifurcation. The left ICA appears widely patent. ANTERIOR CEREBRAL ARTERIES: There is a high-grade stenosis of the origin of the right A1 anterior cerebral artery with the left A1 segment appearing widely patent. No additional significant stenosis appreciated bilaterally. The anterior communicating artery appears widely patent. MIDDLE CEREBRAL ARTERIES: Unremarkable. M1 and M2 segments are widely patent. Perisylvian branches grossly symmetric. 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 Distal Vertebral Arteries: The distal right vertebral artery appears unremarkable however the distal left vertebral artery may be congenitally absent or persistent origin. The latter is favored based on source images. Posterior Cerebral Arteries: The bilateral posterior arteries appear small but patent high-grade stenoses is questioned at the mid to distal left P1 segment. Patent but persistent origin bilateral posterior communicating arteries identified. Posterior Inferior Cerebellar Arteries: Unremarkable. ANEURYSM/ VASCULAR MALFORMATIONS: Proximal basilar aneurysm as above. OTHER FINDINGS: None. IMPRESSION: 1. Moderately lengthy stenosis identified at the proximal intra canalicular through cavernous right ICA segment without occlusion. Left ICA appears widely patent. A few high-grade stenosis are suspected at the P1 RN GYNECOLOGY segment with patent but persistent origin bilateral posterior communicating arteries identified. 2. High-grade stenosis of the proximal right A1 anterior cerebral artery suspected with the left A1 segment widely patent as well as the anterior communicating artery. 3. 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
[2017-07-13] MEDS ORDERED: (Lantus) Insulin Glargine, Recombinant SC SCH (12:16)
--- NOTE | 2017-07-13 12:46 | CP.PCM.PN ---
Subjective - Date & Time of Evaluation Date of Evaluation: 07/13/17 Time of Evaluation: 12:45 - Subjective Subjective: pt i seen and examined, follow up consult is dictated #[id number] Objective - Vital Signs/Intake and Output Vital Signs (last 24 hours): Temp Pulse Resp BP Pulse Ox 97.0 F L 63 18 143/85 97 07/13/17 07:20 07/13/17 12:23 07/13/17 07:20 07/13/17 12:23 07/13/17 07:20 Intake and Output: 07/13/17 07/13/17 06:59 18:59 Intake Total 400 Balance 400 - Medications Medications: Current Medications Acetaminophen (Tylenol 650mg/20.3ml Solution Ud) 650 mg PO Q6 PRN PRN Reason: Fever 100.6 and above Last Admin: 07/06/17 11:58 Dose: 650 mg Albuterol/Ipratropium (Duoneb 3 Mg/0.5 Mg (3 Ml) Ud) 3 ml INH RQ6 ON LICENSE OF [facility] Last Admin: 07/13/17 07:21 Dose: 3 ml Alprazolam (Xanax) 0.25 mg PO BID PRN PRN Reason: Anxiety Stop: 07/19/17 00:01 Last Admin: 07/12/17 00:17 Dose: 0.25 mg Amlodipine Besylate (Norvasc) 10 mg PO DAILY ON [facility] OF [facility] Last Admin: 07/13/17 09:34 Dose: 10 mg Aspirin (Aspirin Chewable) 81 mg PO DAILY ON LICENSE OF [facility] Last Admin: 07/13/17 09:34 Dose: 81 mg Clonidine HCl (Catapres) 0.1 mg PO TID ON LICENSE OF [facility] Last Admin: 07/13/17 09:34 Dose: 0.1 mg Epoetin Pieter (Procrit) 10,000 unit SC TTS ON LICENSE OF [facility] Last Admin: 07/11/17 10:50 Dose: 10,000 unit Famotidine (Pepcid) 20 mg PO DAILY ON [facility] OF [facility] Last Admin: 07/13/17 09:34 Dose: 20 mg Ferric Sodium Gluconate Complex (Ferrlecit) 125 mg IVPB DAILY ON [facility] OF [facility] Stop: 07/15/17 23:21 Last Admin: 07/13/17 09:34 Dose: 125 mg Furosemide (Lasix) 40 mg IVP DAILY ON [facility] OF [facility] Hydralazine HCl (Apresoline) 10 mg IVP Q6H ON LICENSE OF [facility] Last Admin: 07/13/17 12:20 Dose: 10 mg Insulin Glargine (Lantus) 15 unit SC HS [facility] Insulin Human Regular (Novolin R) 0 unit SC Q6H ON LICENSE OF [facility] PRN Reason: Protocol Last Admin: 07/13/17 12:29 Dose: 5 unit Losartan Potassium (Cozaar) 50 mg PO BID ON [facility] OF [facility] Last Admin: 07/06/17 09:34 Dose: 50 mg Metoprolol Tartrate (Lopressor) 50 mg PO BID ON [facility] Last Admin: 07/13/17 09:34 Dose: 50 mg Prednisone (Prednisone Tab) 40 mg PO DAILY ON [facility] Last Admin: 07/13/17 09:34 Dose: 40 mg Rosuvastatin Calcium (Crestor) 10 mg PO HS ON [facility] OF [facility] Last Admin: 07/12/17 21:21 Dose: Not Given Fluticasone/Salmeterol (Advair Diskus 250/50) 1 puff INH RQ12 ON LICENSE OF [facility] Last Admin: 07/13/17 07:22 Dose: Not Given Tiotropium [place] (Spiriva) 18 mcg INH RQ24 ON LICENSE OF [facility] Last Admin: 07/13/17 07:21 Dose: Not Given Vitamin B Complex/Vit C/Folic Acid (Nephro-Lc) 1 tab PO 0800 ON LICENSE OF [facility] Last Admin: 07/13/17 08:31 Dose: 1 tab - Labs Labs: 07/11/17 06:07 07/11/17 17:14 PT 13.6 SECONDS (9.7-12.2) H 07/06/17 06:28 INR 1.2 07/06/17 06:28 APTT 33 SECONDS (21-34) D 07/06/17 06:28
[2017-07-13 12:50] LABS: BASO % 0.2 % (0.0-2.0); EOS % 0.3 % (0.0-4.0); LYMPH # 0.9 K/uL (1.0-4.3); LYMPH % 7.3 % (20.0-40.0); MEAN CELL VOLUME 87.8 fL (80.0-94.0); MEAN CORPUSCULAR HGB CONC 30.8 g/dL (33.0-37.0); MONO # 0.7 K/uL (0.0-0.8); MONO % 6.2 % (0.0-10.0); NRBC % 0.1 % (0.0-2.0); PLATELET COUNT 295 K/uL (130-400); RED CELL DISTRIBUTION WIDTH 18.1 % (11.5-14.5)
[2017-07-13 12:53] LABS: POTASSIUM 4.3 mmol/L (3.6-5.2); WHITE BLOOD COUNT 11.7 K/uL (4.8-10.8)
[2017-07-13 12:55] LABS: ALB/GLOB RATIO 0.8 (1.0-2.1); BILIRUBIN,TOTAL 0.4 mg/dL (0.2-1.3); TOTAL PROTEIN 7.4 g/dL (6.3-8.3)
[2017-07-13 12:56] LABS: CALCIUM 8.4 mg/dl (8.6-10.4); MAGNESIUM 2.5 mg/dL (1.6-2.3); PHOSPHOROUS 4.5 mg/dL (2.5-4.5)
[2017-07-13 13:22] LABS: EOSINOPHIL 1 % (0-4); NEUTROPHIL 85 % (50-75); TOTAL CELLS COUNTED 100
--- NOTE | 2017-07-13 16:38 | CP.PCM.PN ---
Subjective - Date & Time of Evaluation Date of Evaluation: 07/13/17 Time of Evaluation: 10:40 - Subjective Subjective: patient seen- had MRI/MRA earlier nurse repprts better patient's condition patient is conversant, out of bed to chair, ambulates , jokes no respiratory complaints is oriented and condition is discussed Objective - Vital Signs/Intake and Output Vital Signs (last 24 hours): Temp Pulse Resp BP Pulse Ox 97.6 F 75 20 139/85 96 07/13/17 15:38 07/13/17 15:38 07/13/17 15:38 07/13/17 15:38 07/13/17 15:38 Intake and Output: 07/13/17 07/13/17 06:59 18:59 Intake Total 400 595 Output Total 350 Balance 400 245 - Medications Medications: Current Medications Acetaminophen (Tylenol 650mg/20.3ml Solution Ud) 650 mg PO Q6 PRN PRN Reason: Fever 100.6 and above Last Admin: 07/06/17 11:58 Dose: 650 mg Albuterol/Ipratropium (Duoneb 3 Mg/0.5 Mg (3 Ml) Ud) 3 ml INH RQ6 [facility] Last Admin: 07/13/17 13:21 Dose: Not Given Alprazolam (Xanax) 0.25 mg PO BID PRN PRN Reason: Anxiety Stop: 07/19/17 00:01 Last Admin: 07/12/17 00:17 Dose: 0.25 mg Amlodipine Besylate (Norvasc) 10 mg PO DAILY [facility] Last Admin: 07/13/17 09:34 Dose: 10 mg Aspirin (Aspirin Chewable) 81 mg PO DAILY [facility] Last Admin: 07/13/17 09:34 Dose: 81 mg Clonidine HCl (Catapres) 0.1 mg PO TID [facility] Last Admin: 07/13/17 14:55 Dose: 0.1 mg Epoetin Pieter (Procrit) 10,000 unit SC TTS [facility] Last Admin: 07/11/17 10:50 Dose: 10,000 unit Famotidine (Pepcid) 20 mg PO DAILY [facility] Last Admin: 07/13/17 09:34 Dose: 20 mg Ferric Sodium Gluconate Complex (Ferrlecit) 125 mg IVPB DAILY [facility] Stop: 07/15/17 23:21 Last Admin: 07/13/17 09:34 Dose: 125 mg Furosemide (Lasix) 40 mg IVP DAILY [facility] Hydralazine HCl (Apresoline) 10 mg IVP Q6H [facility] Last Admin: 07/13/17 12:20 Dose: 10 mg Insulin Glargine (Lantus) 15 unit SC HS [facility] Insulin Human Regular (Novolin R) 0 unit SC Q6H [facility] PRN Reason: Protocol Last Admin: 07/13/17 12:29 Dose: 5 unit Losartan Potassium (Cozaar) 50 mg PO BID [facility] Last Admin: 07/06/17 09:34 Dose: 50 mg Metoprolol Tartrate (Lopressor) 50 mg PO BID [facility] Last Admin: 07/13/17 09:34 Dose: 50 mg Prednisone (Prednisone Tab) 40 mg PO DAILY [facility] Last Admin: 07/13/17 09:34 Dose: 40 mg Rosuvastatin Calcium (Crestor) 10 mg PO HS [facility] Last Admin: 07/12/17 21:21 Dose: Not Given Fluticasone/Salmeterol (Advair Diskus 250/50) 1 puff INH RQ12 [facility] Last Admin: 07/13/17 07:22 Dose: Not Given Tiotropium [place] (Spiriva) 18 mcg INH RQ24 [facility] Last Admin: 07/13/17 07:21 Dose: Not Given Vitamin B Complex/Vit C/Folic Acid (Nephro-Lc) 1 tab PO 0800 [facility] Last Admin: 07/13/17 08:31 Dose: 1 tab - Labs Labs: 07/13/17 12:39 07/13/17 12:39 PT 13.6 SECONDS (9.7-12.2) H 07/06/17 06:28 INR 1.2 07/06/17 06:28 APTT 33 SECONDS (21-34) D 07/06/17 06:28 - Constitutional Appears: Non-toxic, No Acute Distress - Head Exam Head Exam: ATRAUMATIC, NORMOCEPHALIC - Eye Exam Eye Exam: Normal appearance. absent: Nystagmus - ENT Exam ENT Exam: Mucous Membranes Moist - Neck Exam Neck Exam: Full ROM - Respiratory Exam Respiratory Exam: Clear to Ausculation Bilateral, NORMAL BREATHING PATTERN - GI/Abdominal Exam GI & Abdominal Exam: Soft, Normal Bowel Sounds. absent: Tenderness - Extremities Exam Extremities Exam: Full ROM (less edema of lower extremeties ) - Neurological Exam Neurological Exam: Alert, Awake, Normal Gait, Oriented x3 - Psychiatric Exam Psychiatric exam: Normal Affect, Normal Mood - Skin Skin Exam: Intact, Normal Color Assessment and Plan - Assessment and Plan (Free Text) Assessment: Patiet with respiratory failure post intubation- pst BIPAP- is improving breathing in room air Stenosis of cerebral artery Aneurysm- Neuro on case on toprol , to control BP runs of non sustained vtachs- discussed with cardio- - continue medical care IDDM- adjusting Insulin , dietary Debility- PT /sub acute
[2017-07-13 18:16] LABS: TROPONIN I 0.086 ng/mL (0.00-0.120)
--- NOTE | 2017-07-13 19:02 | PN ---
DATE: 07/13/2017 SUBJECTIVE: The patient was seen, was resting comfortably, sleeping. According to the staff, the patient cooperated with physical therapy. He also ate. Mental status tran, much better. No bouts of agitation. The patient is currently given Xanax 0.25 mg p.o. b.i.d. p.r.n. for anxiety. The patient is tolerating Xanax now without any problems with his breathing. PHYSICAL EXAMINATION: VITAL SIGNS: Temperature is 97, pulse rate is 63, blood pressure is 143/85, respiration is 18, and oxygen saturation is 100%. REVIEW OF SYSTEMS: GENERAL: The patient is resting comfortably, not in acute respiratory distress, behavior is much better. SKIN: No diaphoresis. HEENT: No headache. No dizziness. NECK: Supple. RESPIRATORY: No dyspnea. CARDIOVASCULAR: No chest pain. GASTROINTESTINAL: Eating well. EXTREMITIES: The patient moving extremities. MUSCULOSKELETAL: Feels weak. NEUROLOGIC: Alert, the patient is sleeping in bed, cognitively intact. MENTAL STATUS EXAMINATION: The patient is an elderly male of [place] descent, sleeping, but arousable. Mood is calm. Affect is reactive. Speech is daze. Though process, coherent. Though content, no psychosis. No suicidal ideation. Attention and memory seem to be fair. Insight and judgment are fair. Impulse control is fair. IMPRESSION: History of metabolic encephalopathy, delirium, as well as history of delusion of morbid jealousy, also known as Pete syndrome. PLAN AND RECOMMENDATIONS: The patient is seen. Medications reviewed. Continue present management. Continue Xanax p.r.n. as ordered. The patient may benefit from subacute rehab once medically cleared. For his chronic delusion, we will hold off his psych medications for now as the patient is still medically unstable. Ren Kyle MD
--- NOTE | 2017-07-13 22:39 | CP.PCM.PN ---
Subjective - Date & Time of Evaluation Date of Evaluation: 07/13/17 Time of Evaluation: 18:10 - Subjective Subjective: Patient seen and evaluated Non sustained V T runs Not a candidate for cath due to Cerebral aneurysm and Acute on Chronic CKD Increase Lopressor to 75 mg po bid Physical Examination - Constitutional Appears: Non-toxic, No Acute Distress - Head Exam Head Exam: ATRAUMATIC, NORMAL INSPECTION, NORMOCEPHALIC - Eye Exam Eye Exam: EOMI, PERRL - ENT Exam ENT Exam: Mucous Membranes Moist - Neck Exam Neck Exam: Full ROM - Respiratory Exam Respiratory Exam: absent: Wheezes - Cardiovascular Exam Cardiovascular Exam: +S1, +S2 - GI/Abdominal Exam GI & Abdominal Exam: Soft, Normal Bowel Sounds - Extremities Exam Extremities Exam: Normal Capillary Refill, Pedal Edema (1+ pitting). absent: Tenderness - Psychiatric Exam Psychiatric exam: Flat Affect - Skin Skin Exam: Dry, Normal Color, Warm Objective - Vital Signs/Intake and Output Vital Signs (last 24 hours): Temp Pulse Resp BP Pulse Ox 97.6 F 65 20 139/85 96 07/13/17 15:38 07/13/17 16:00 07/13/17 15:38 07/13/17 15:38 07/13/17 15:38 Intake and Output: 07/13/17 07/14/17 18:59 06:59 Intake Total 595 Output Total 350 Balance 245 - Medications Medications: Current Medications Acetaminophen (Tylenol 650mg/20.3ml Solution Ud) 650 mg PO Q6 PRN PRN Reason: Fever 100.6 and above Last Admin: 07/06/17 11:58 Dose: 650 mg Albuterol/Ipratropium (Duoneb 3 Mg/0.5 Mg (3 Ml) Ud) 3 ml INH RQ6 [facility] Last Admin: 07/13/17 19:15 Dose: 3 ml Alprazolam (Xanax) 0.25 mg PO BID PRN PRN Reason: Anxiety Stop: 07/19/17 00:01 Last Admin: 07/12/17 00:17 Dose: 0.25 mg Amlodipine Besylate (Norvasc) 10 mg PO DAILY [facility] Last Admin: 07/13/17 09:34 Dose: 10 mg Aspirin (Aspirin Chewable) 81 mg PO DAILY [facility] Last Admin: 07/13/17 09:34 Dose: 81 mg Clonidine HCl (Catapres) 0.1 mg PO TID [facility] Last Admin: 07/13/17 18:10 Dose: 0.1 mg Clopidogrel Bisulfate (Plavix) 75 mg PO DAILY [facility] Epoetin Pieter (Procrit) 10,000 unit SC TTS [facility] Last Admin: 07/11/17 10:50 Dose: 10,000 unit Famotidine (Pepcid) 20 mg PO DAILY [facility] Last Admin: 07/13/17 09:34 Dose: 20 mg Ferric Sodium Gluconate Complex (Ferrlecit) 125 mg IVPB DAILY [facility] Stop: 07/15/17 23:21 Last Admin: 07/13/17 09:34 Dose: 125 mg Furosemide (Lasix) 40 mg IVP DAILY [facility] Hydralazine HCl (Apresoline) 10 mg IVP Q6H [facility] Last Admin: 07/13/17 22:04 Dose: 10 mg Insulin Glargine (Lantus) 15 unit SC HS [facility] Last Admin: 07/13/17 21:33 Dose: 15 units Insulin Human Regular (Novolin R) 0 unit SC Q6H [facility] PRN Reason: Protocol Last Admin: 07/13/17 18:11 Dose: 6 unit Losartan Potassium (Cozaar) 50 mg PO BID [facility] Last Admin: 07/06/17 09:34 Dose: 50 mg Prednisone (Prednisone Tab) 40 mg PO DAILY [facility] Last Admin: 07/13/17 09:34 Dose: 40 mg Rosuvastatin Calcium (Crestor) 10 mg PO HS [facility] Last Admin: 07/13/17 21:32 Dose: 10 mg Fluticasone/Salmeterol (Advair Diskus 250/50) 1 puff INH RQ12 [facility] Last Admin: 07/13/17 19:15 Dose: 1 puff Tiotropium [place] (Spiriva) 18 mcg INH RQ24 [facility] Last Admin: 07/13/17 07:21 Dose: Not Given Vitamin B Complex/Vit C/Folic Acid (Nephro-Lc) 1 tab PO 0800 [facility] Last Admin: 07/13/17 08:31 Dose: 1 tab - Labs Labs: 07/13/17 12:39 07/13/17 12:39 PT 13.6 SECONDS (9.7-12.2) H 07/06/17 06:28 INR 1.2 07/06/17 06:28 APTT 33 SECONDS (21-34) D 07/06/17 06:28 Assessment and Plan - Assessment and Plan (Free Text) Assessment: Elevated Troponin Assessment and Plan: Mildly elevated but later trended down: It could have been due to ischemic changes but may also be due to CHF exacerbation as well No ST segment changes appreciated on EKG 07/06 Cont to monitor Status: Acute CHF exacerbation Assessment and Plan: S/P intubation due to resp distress on 07/05. Will likely be extubated soon. On IV Lasix 40 IV Q12 ECHO: EF 65%, mild calcified thickening of aortic valve. Refer to complete report Status: Acute Hypertension Assessment and Plan: On Metoprolol, Cozaar and Hydralazine Elevated overnight. Cont to monitor. Avoid IVF Status: Chronic History of coronary artery bypass graft Assessment and Plan: Crestor 10 mg PO HS On Metoprolol BID, ASA daily. Would like Neuro clearance before cardiac cath is performed. Patient would benefit from MRI/MRA to visualize cerebral vasculature. Status: Chronic History of diabetes mellitus Assessment and Plan: Accuchecks Sliding scale Hold Parameters in place A1c 6.8 Status: Chronic History of TIA (transient ischemic attack) Assessment and Plan: 07/[address]- Intracranial arterial calcifications; stable chronic infarcts noted. Refer to full report. Would benefit from MRI of brain. EEG reviewed by Neuro- Slow wave activity noted w/o paroxysmal activity or focal slowing Neuro on the case. See above. Cont to monitor Status: Acute Hypercholesterolemia Assessment and Plan: On Crestor Would benefit from diet and exercise modifications following current hospital course Status: Chronic Family history of cerebral aneurysm Assessment and Plan: Strong family history. Patient's counseled on the importance of imaging for children to rule out aneurysms. Head CT did not appear to show signs of aneurysmal disease. Neuro on case for AMS Status: Acute Prophylactic measure Assessment and Plan: SCDs contraindicated due to swelling Heparin SC Q12 Pepcid 20 mg IV daily Status: Acute
[2017-07-13] MEDS ORDERED: (Lantus) Insulin Glargine, Recombinant SC STA (22:50)
--- NOTE | 2017-07-14 00:59 | PN ---
DATE: FOLLOWUP RENAL CONSULTATION LOCATION: The patient is located in room number 663, bed A. REQUESTED BY: Paola Adams MD REASON FOR FOLLOWUP: Acute renal failure, chronic kidney disease for further evaluation. HISTORY OF PRESENT ILLNESS: Mr. Flowers is a 67-year-old obese elderly [place] male with past medical history significant for long-standing hypertension, diabetes, hyperlipidemia, coronary artery disease, status post CABG, multiple CVA, was admitted with hypoglycemia, shortness of breath and hospital course complicated by respiratory failure, anemia, status post intubation. The patient is on the medical floor. The patient is not in distress, resting comfortably. No complaints this morning. PHYSICAL EXAMINATION VITAL SIGNS: As follows, blood pressure 143/85, pulse 63, respirations 20, temperature 97.6, saturation 96%. Height 5 feet 6 inches and weight is 186 pounds. GENERAL: Mr. Flowers is a 67-year-old elderly obese male, well built and well nourished, not in acute distress. HEENT: Pupils are normally reactive to light and accommodation. Conjunctivae are pink. Sclerae are anicteric. Tongue is moist. Trachea is midline. LUNGS: Symmetric on both sides. Bilateral breath sounds present. Clear to auscultation. CARDIOVASCULAR SYSTEM: Carr at the fifth intercostal space, midclavicular. S1 and S2 audible. No murmur or gallop. The patient has a midsternal scar present from the previous coronary artery bypass grafting. ABDOMEN: Normal in appearance, soft, and tympanic. No guarding. No rigidity. No hepatosplenomegaly. CENTRAL NERVOUS SYSTEM: The patient is alert, awake, and oriented x3. Nonfocal on examination. Cranial nerves II through XII grossly intact. Sensory and motor system is within normal limits. EXTREMITIES: No cyanosis. No clubbing. No edema. CURRENT MEDICATIONS: Include as follows, Advair inhaler 1 puff q. 12 hours, hydralazine 10 mg IV q. 6 hours p.r.n., aspirin 81 mg daily, clonidine 0.1 mg p.o. t.i.d., Losartan 50 mg p.o. b.i.d. on hold and Crestor 10 mg at bedtime, DuoNeb inhaler 3 mL q. 6 hours and Ferrlecit 125 mg IV daily, Lantus 17 units subcu at bedtime, and Lasix 40 mg IV daily, metoprolol 75 mg p.o. b.i.d., Nephro-Lc 1 tablet daily, amlodipine 10 mg daily and Pepcid 20 mg daily, Plavix 75 mg daily, prednisone 40 mg p.o. daily, Epogen 10,000 units 3 times a week, Spiriva and Xanax. LABORATORY DATA: His current laboratory data as of 07/13/2017, WBC 11.7, hemoglobin 9.9, hematocrit 32, platelets 295. Sodium 134, potassium 4.3, chloride 96, CO2 31, BUN 70, creatinine 3.0, glucose is 384, calcium 8.4, phosphorus 4.5, magnesium 2.5, total bilirubin 0.4, AST 20, ALT 30, alkaline phosphatase 96, troponin is 0.086 and proBNP is 7950 and total protein 7.4, albumin is 3.3. Blood culture as of 07/02/2017, negative x2, negative day 5. As of 07/05/2017, blood culture x2 sets negative, again day #5 and so the sputum culture was normal julianne and as of 07/05/2017, urine culture is positive for staph coag negative and MRSA screening was negative as of 07/09/2017. Urine culture positive for more than 100,000 colony forming units and staph coag negative. Resistant to Cipro, erythromycin, levofloxacin and tetracycline. ASSESSMENT: Mr. Flowers is a 67-year-old elderly obese [place] male with hypertension, diabetes, hyperlipidemia, coronary artery disease, status post coronary artery bypass grafting, multiple CVA, was admitted with hypoglycemia, shortness of breath, increased BUN, creatinine, low hemoglobin and hematocrit and urine protein, electrophoresis positive for monoclonal protein. 1. Acute renal failure on chronic kidney disease. 2. Anemia. 3. Hypertension. 4. Chronic obstructive pulmonary disease. PLAN: Continue his current medications. Check urine for immunofixation and serum immunofixation and continue taper of the steroids and continue gentle diuresis. We will follow with you. Thank you for allowing me to participating in your patient's care. Susana Jones MD
[2017-07-14] MEDS: Albuterol-Ipratrop 3 mg / 0.5 (3 ml) UD INH SCH ×4 (01:50→19:17)
[2017-07-14] MEDS: (Novolin R) Insulin Human Regular 100 units/ml vial SC SCH ×4 (06:28→18:41)
[2017-07-14 07:52] LABS: BASO % 0.1 % (0.0-2.0); EOS % 0.4 % (0.0-4.0); HEMATOCRIT 32.4 % (35.0-51.0); LYMPH # 1.1 K/uL (1.0-4.3); LYMPH % 12.2 % (20.0-40.0); MEAN CELL VOLUME 87.3 fL (80.0-94.0); MEAN CORPUSCULAR HEMOGLOBIN 27.4 pg (27.0-31.0); MEAN CORPUSCULAR HGB CONC 31.4 g/dL (33.0-37.0); MEAN PLATELET VOLUME 9.1 fL (7.2-11.7); MONO # 0.6 K/uL (0.0-0.8); MONO % 6.8 % (0.0-10.0); NRBC % 0.3 % (0.0-2.0); RED CELL DISTRIBUTION WIDTH 18.4 % (11.5-14.5); WHITE BLOOD COUNT 9.4 K/uL (4.8-10.8)
[2017-07-14] MEDS: Multivitamin Vitamin B Complex (Nephro-Vite) Tab PO SCH (08:00)
[2017-07-14] MEDS: Fluticasone-Salmeterol 250-50mcg Diskus INH SCH ×2 (08:05→19:17)
[2017-07-14 08:21] LABS: POTASSIUM 4.1 mmol/L (3.6-5.2)
--- NOTE | 2017-07-14 08:22 | CP.PCM.PN ---
<Augusta Madison - Last Filed: 07/14/17 11:09> Subjective - Date & Time of Evaluation Date of Evaluation: 07/14/17 Time of Evaluation: 09:00 - Subjective Subjective: Pulmonology Note for Dr. Alves's Service Patient was seen and examined at bedside. He reports he feels well. Denied fever , chills, headache, chest pain, SOB, cough abdominal pain, n/v/d/c, or urinary symptoms. Objective - Vital Signs/Intake and Output Vital Signs (last 24 hours): Temp Pulse Resp BP Pulse Ox 97.6 F 62 20 147/75 95 07/13/17 23:15 07/14/17 05:59 07/13/17 23:15 07/13/17 23:15 07/13/17 23:15 Intake and Output: 07/14/17 07/14/17 06:59 18:59 Intake Total 480 Balance 480 - Medications Medications: Current Medications Acetaminophen (Tylenol 650mg/20.3ml Solution Ud) 650 mg PO Q6 PRN PRN Reason: Fever 100.6 and above Last Admin: 07/06/17 11:58 Dose: 650 mg Albuterol/Ipratropium (Duoneb 3 Mg/0.5 Mg (3 Ml) Ud) 3 ml INH RQ6 [facility] Last Admin: 07/14/17 08:05 Dose: 3 ml Alprazolam (Xanax) 0.25 mg PO BID PRN PRN Reason: Anxiety Stop: 07/19/17 00:01 Last Admin: 07/12/17 00:17 Dose: 0.25 mg Amlodipine Besylate (Norvasc) 10 mg PO DAILY [facility] Last Admin: 07/13/17 09:34 Dose: 10 mg Aspirin (Aspirin Chewable) 81 mg PO DAILY [facility] Last Admin: 07/13/17 09:34 Dose: 81 mg Clonidine HCl (Catapres) 0.1 mg PO TID [facility] Last Admin: 07/13/17 18:10 Dose: 0.1 mg Clopidogrel Bisulfate (Plavix) 75 mg PO DAILY [facility] Epoetin Pieter (Procrit) 10,000 unit SC TTS [facility] Last Admin: 07/11/17 10:50 Dose: 10,000 unit Famotidine (Pepcid) 20 mg PO DAILY [facility] Last Admin: 07/13/17 09:34 Dose: 20 mg Ferric Sodium Gluconate Complex (Ferrlecit) 125 mg IVPB DAILY [facility] Stop: 07/15/17 23:21 Last Admin: 07/13/17 09:34 Dose: 125 mg Furosemide (Lasix) 40 mg IVP DAILY [facility] Hydralazine HCl (Apresoline) 10 mg IVP Q6H [facility] Last Admin: 07/14/17 07:01 Dose: 10 mg Insulin Glargine (Lantus) 17 unit SC HS [facility] Insulin Human Regular (Novolin R) 0 unit SC Q6H [facility] PRN Reason: Protocol Last Admin: 07/13/17 18:11 Dose: 6 unit Losartan Potassium (Cozaar) 50 mg PO BID [facility] Last Admin: 07/06/17 09:34 Dose: 50 mg Metoprolol Tartrate (Lopressor) 75 mg PO BID [facility] Prednisone (Prednisone Tab) 40 mg PO DAILY [facility] Last Admin: 07/13/17 09:34 Dose: 40 mg Rosuvastatin Calcium (Crestor) 10 mg PO HS [facility] Last Admin: 07/13/17 21:32 Dose: 10 mg Fluticasone/Salmeterol (Advair Diskus 250/50) 1 puff INH RQ12 [facility] Last Admin: 07/14/17 08:05 Dose: 1 puff Tiotropium [place] (Spiriva) 18 mcg INH RQ24 [facility] Last Admin: 07/13/17 07:21 Dose: Not Given Vitamin B Complex/Vit C/Folic Acid (Nephro-Lc) 1 tab PO 0800 [facility] Last Admin: 07/13/17 08:31 Dose: 1 tab - Labs Labs: 07/14/17 07:05 07/14/17 07:05 PT 13.6 SECONDS (9.7-12.2) H 07/06/17 06:28 INR 1.2 07/06/17 06:28 APTT 33 SECONDS (21-34) D 07/06/17 06:28 - Additional Findings Additional findings: - Constitutional Appears: No Acute Distress - Head Exam Head Exam: NORMAL INSPECTION, NORMOCEPHALIC - Eye Exam Eye Exam: EOMI, Normal appearance, PERRL Pupil Exam: NORMAL ACCOMODATION - ENT Exam ENT Exam: Mucous Membranes Moist, Normal Exam, Normal Oropharynx. absent: Mucous Membranes Dry - Neck Exam Neck Exam: Normal Inspection. absent: Lymphadenopathy, Thyromegaly - Respiratory Exam Respiratory Exam: Clear to Ausculation Bilateral, NORMAL BREATHING PATTERN. absent: Rales, Rhonchi, Wheezes - Cardiovascular Exam Cardiovascular Exam: REGULAR RHYTHM, RRR, +S1, +S2 - GI/Abdominal Exam GI & Abdominal Exam: Soft, Normal Bowel Sounds. absent: Distended, Tenderness - Extremities Exam Extremities Exam: Normal Inspection. absent: Pedal Edema, Tenderness - Neurological Exam Neurological Exam: Alert, Awake, Oriented x3 - Psychiatric Exam Psychiatric exam: Normal Affect, Normal Mood - Skin Skin Exam: Dry, Intact, Normal Color, Warm Assessment and Plan - Assessment and Plan (Free Text) Plan: Hypercapnic respiratory failure, chronic On admission patient was hypoglycemic, hypercapnic and hypotensive. Chest x-ray showed pulmonary edema. Patient was placed on BiPAP, repeat ABG improving hypercapnia. Continue current management BiPAP PRN Duonebs Q6H Lasix 40mg IVP daily Prednisone 40mg PO daily --> will need to be tapered Spiriva 18mcg INH QD Advair 250/50 Q12H Hx of CHF ECHO 07/02/17: EF 65%, mild calcified thickening of aortic valve. Refer to complete report Episodes of VTACH Dr. Butler on consult Recommend EP consult - Dr. Wisdom - help appreciated Not a candidate for cath due to Cerebral Aneurysm and Acute on Chronic CKD Increase Lopressor to 75 mg po bid Acute on Chronic CKD Hx Obstructive sleep apnea/obesity hypoventilation syndrome History of TIA (transient ischemic attack) Family history of cerebral aneurysm AMS 07/[address]- Intracranial arterial calcifications; stable chronic infarcts noted. Refer to full report. Would benefit from MRI of brain. Head CT did not appear to show signs of aneurysmal disease. EEG reviewed by Neuro- Slow wave activity noted w/o paroxysmal activity or focal slowing Neuro on case for AMS -brain MRI and head MRA ordered, noted to have a Cerebral Aneurysm Cont to monitor DW Gricelda Barahona DO, PGY-1 <Atul Alves - Last Filed: 07/14/17 16:07> Objective - Vital Signs/Intake and Output Vital Signs (last 24 hours): Temp Pulse Resp BP Pulse Ox 97.6 F 62 20 159/84 H 95 07/13/17 23:15 07/14/17 05:59 07/13/17 23:15 07/14/17 09:14 07/13/17 23:15 Intake and Output: 07/14/17 07/14/17 06:59 18:59 Intake Total 480 Balance 480 - Medications Medications: Current Medications Acetaminophen (Tylenol 650mg/20.3ml Solution Ud) 650 mg PO Q6 PRN PRN Reason: Fever 100.6 and above Last Admin: 07/06/17 11:58 Dose: 650 mg Albuterol/Ipratropium (Duoneb 3 Mg/0.5 Mg (3 Ml) Ud) 3 ml INH RQ6 [facility] Last Admin: 07/14/17 14:09 Dose: 3 ml Alprazolam (Xanax) 0.25 mg PO BID PRN PRN Reason: Anxiety Stop: 07/19/17 00:01 Last Admin: 07/12/17 00:17 Dose: 0.25 mg Amlodipine Besylate (Norvasc) 10 mg PO DAILY [facility] Last Admin: 07/14/17 09:13 Dose: 10 mg Aspirin (Aspirin Chewable) 81 mg PO DAILY [facility] Last Admin: 07/14/17 09:12 Dose: 81 mg Clonidine HCl (Catapres) 0.1 mg PO TID [facility] Last Admin: 07/14/17 14:53 Dose: 0.1 mg Clopidogrel Bisulfate (Plavix) 75 mg PO DAILY [facility] Last Admin: 07/14/17 09:12 Dose: 75 mg Epoetin Pieter (Procrit) 10,000 unit SC TTS [facility] Last Admin: 07/11/17 10:50 Dose: 10,000 unit Famotidine (Pepcid) 20 mg PO DAILY [facility] Last Admin: 07/14/17 09:13 Dose: 20 mg Ferric Sodium Gluconate Complex (Ferrlecit) 125 mg IVPB DAILY [facility] Stop: 07/15/17 23:21 Last Admin: 07/14/17 09:15 Dose: 125 mg Furosemide (Lasix) 40 mg IVP DAILY [facility] Last Admin: 07/14/17 09:14 Dose: 40 mg Hydralazine HCl (Apresoline) 10 mg IVP Q6H [facility] Last Admin: 07/14/17 14:49 Dose: 10 mg Insulin Glargine (Lantus) 19 unit SC HS [facility] Insulin Human Regular (Novolin R) 0 unit SC Q6H [facility] PRN Reason: Protocol Last Admin: 07/14/17 12:00 Dose: 5 unit Losartan Potassium (Cozaar) 50 mg PO BID [facility] Last Admin: 07/06/17 09:34 Dose: 50 mg Metoprolol Tartrate (Lopressor) 75 mg PO BID [facility] Last Admin: 07/14/17 09:13 Dose: 75 mg Prednisone (Prednisone Tab) 40 mg PO DAILY [facility] PRN Reason: Taper Stop: 07/21/17 09:59 Last Admin: 07/14/17 09:12 Dose: 40 mg Rosuvastatin Calcium (Crestor) 10 mg PO HS [facility] Last Admin: 07/13/17 21:32 Dose: 10 mg Fluticasone/Salmeterol (Advair Diskus 250/50) 1 puff INH RQ12 [facility] Last Admin: 07/14/17 08:05 Dose: 1 puff Tiotropium [place] (Spiriva) 18 mcg INH RQ24 [facility] Last Admin: 07/13/17 07:21 Dose: Not Given Vitamin B Complex/Vit C/Folic Acid (Nephro-Lc) 1 tab PO 0800 [facility] Last Admin: 07/14/17 08:00 Dose: 1 tab - Labs Labs: 07/14/17 07:05 07/14/17 07:05 PT 13.6 SECONDS (9.7-12.2) H 07/06/17 06:28 INR 1.2 07/06/17 06:28 APTT 33 SECONDS (21-34) D 07/06/17 06:28 Assessment and Plan (1) Hypercapnic respiratory failure, chronic Status: Acute (2) Elevated troponin Status: Acute (3) Pulmonary edema Status: Acute (4) Hypoglycemia Status: Acute Attending/Attestation - Attestation I have personally seen and examined this patient.: Yes I have fully participated in the care of the patient.: Yes I have reviewed all pertinent clinical information, including history, physical exam and plan: Yes Notes (Text): 07/14/17 16:06 Patient seen and examined. Case discussed with house staff during morning rounds No further V. tach and patient seen by EPS Sitting comfortably in no acute distress Continue nebulizer treatment and taper off steroid BiPAP at night Sleep study as outpatient
[2017-07-14 08:23] LABS: ALB/GLOB RATIO 0.8 (1.0-2.1); BILIRUBIN,TOTAL 0.4 mg/dL (0.2-1.3); TOTAL PROTEIN 7.1 g/dL (6.3-8.3)
[2017-07-14 08:24] LABS: CALCIUM 8.7 mg/dl (8.6-10.4); MAGNESIUM 2.6 mg/dL (1.6-2.3); PHOSPHOROUS 4.6 mg/dL (2.5-4.5)
--- NOTE | 2017-07-14 08:55 | CP.PCM.PN ---
Subjective - Date & Time of Evaluation Date of Evaluation: 07/14/17 Time of Evaluation: 10:00 - Subjective Subjective: patient seen, very vocal, said he cannot remember what happened- tried to discuss condition and events and findings patient feels comfortable will check with cardio for other plans Sugar noted - patient with IDDM2 post hyperglycemia- currently on steroid- Objective - Vital Signs/Intake and Output Vital Signs (last 24 hours): Temp Pulse Resp BP Pulse Ox 97.6 F 62 20 147/75 95 07/13/17 23:15 07/14/17 05:59 07/13/17 23:15 07/13/17 23:15 07/13/17 23:15 Intake and Output: 07/14/17 07/14/17 06:59 18:59 Intake Total 480 Balance 480 - Medications Medications: Current Medications Acetaminophen (Tylenol 650mg/20.3ml Solution Ud) 650 mg PO Q6 PRN PRN Reason: Fever 100.6 and above Last Admin: 07/06/17 11:58 Dose: 650 mg Albuterol/Ipratropium (Duoneb 3 Mg/0.5 Mg (3 Ml) Ud) 3 ml INH RQ6 [facility] Last Admin: 07/14/17 08:05 Dose: 3 ml Alprazolam (Xanax) 0.25 mg PO BID PRN PRN Reason: Anxiety Stop: 07/19/17 00:01 Last Admin: 07/12/17 00:17 Dose: 0.25 mg Amlodipine Besylate (Norvasc) 10 mg PO DAILY [facility] Last Admin: 07/13/17 09:34 Dose: 10 mg Aspirin (Aspirin Chewable) 81 mg PO DAILY [facility] Last Admin: 07/13/17 09:34 Dose: 81 mg Clonidine HCl (Catapres) 0.1 mg PO TID [facility] Last Admin: 07/13/17 18:10 Dose: 0.1 mg Clopidogrel Bisulfate (Plavix) 75 mg PO DAILY [facility] Epoetin Pieter (Procrit) 10,000 unit SC TTS [facility] Last Admin: 07/11/17 10:50 Dose: 10,000 unit Famotidine (Pepcid) 20 mg PO DAILY [facility] Last Admin: 07/13/17 09:34 Dose: 20 mg Ferric Sodium Gluconate Complex (Ferrlecit) 125 mg IVPB DAILY [facility] Stop: 07/15/17 23:21 Last Admin: 07/13/17 09:34 Dose: 125 mg Furosemide (Lasix) 40 mg IVP DAILY [facility] Hydralazine HCl (Apresoline) 10 mg IVP Q6H [facility] Last Admin: 07/14/17 07:01 Dose: 10 mg Insulin Glargine (Lantus) 19 unit SC HS [facility] Insulin Human Regular (Novolin R) 0 unit SC Q6H [facility] PRN Reason: Protocol Last Admin: 07/13/17 18:11 Dose: 6 unit Losartan Potassium (Cozaar) 50 mg PO BID [facility] Last Admin: 07/06/17 09:34 Dose: 50 mg Metoprolol Tartrate (Lopressor) 75 mg PO BID [facility] Prednisone (Prednisone Tab) 40 mg PO DAILY [facility] Last Admin: 07/13/17 09:34 Dose: 40 mg Rosuvastatin Calcium (Crestor) 10 mg PO HS [facility] Last Admin: 07/13/17 21:32 Dose: 10 mg Fluticasone/Salmeterol (Advair Diskus 250/50) 1 puff INH RQ12 [facility] Last Admin: 07/14/17 08:05 Dose: 1 puff Tiotropium [place] (Spiriva) 18 mcg INH RQ24 [facility] Last Admin: 07/13/17 07:21 Dose: Not Given Vitamin B Complex/Vit C/Folic Acid (Nephro-Lc) 1 tab PO 0800 [facility] Last Admin: 07/13/17 08:31 Dose: 1 tab - Labs Labs: 07/14/17 07:05 07/14/17 07:05 PT 13.6 SECONDS (9.7-12.2) H 07/06/17 06:28 INR 1.2 07/06/17 06:28 APTT 33 SECONDS (21-34) D 07/06/17 06:28 - Constitutional Appears: Well, Non-toxic, Confused (conversant but somewhat confused or cannot remeber what happened ) - Head Exam Head Exam: ATRAUMATIC, NORMOCEPHALIC - Eye Exam Eye Exam: Normal appearance. absent: Nystagmus - ENT Exam ENT Exam: Mucous Membranes Moist - Neck Exam Neck Exam: Full ROM. absent: Tenderness - Respiratory Exam Respiratory Exam: Clear to Ausculation Bilateral, NORMAL BREATHING PATTERN - Cardiovascular Exam Cardiovascular Exam: REGULAR RHYTHM - GI/Abdominal Exam GI & Abdominal Exam: Soft, Normal Bowel Sounds. absent: Tenderness - Extremities Exam Extremities Exam: Full ROM, Normal Inspection, Pedal Edema (slight) - Neurological Exam Neurological Exam: Alert, Awake, Normal Gait, Oriented x3 - Psychiatric Exam Psychiatric exam: Normal Affect, Normal Mood - Skin Skin Exam: Intact, Normal Color Assessment and Plan - Assessment and Plan (Free Text) Assessment: IDDM2 post hypoglycemia-currently on tapering steroid, Accucheck readings on the high reading - will keep monitoring and adjusting insulin dose accordingly . Dietary education Add low dose oral hypog CRI- stable- Post respiratory distress-improved Hypertension- stable and controllled MRA finding Cerebral Aneyurysm,-discuussed with cardio- cannot cath= due to possible effect of blood thinner on aneurysm stable- will plan for subacute -
--- NOTE | 2017-07-14 09:07 | CP.PCM.PN ---
Subjective - Date & Time of Evaluation Date of Evaluation: 07/14/17 Time of Evaluation: 09:06 - Subjective Subjective: pt is seen and examined, follow up consult is dictated #[id number] renal function is improving check UIF andSIF consider hematology consult to r/o Myeloma Objective - Vital Signs/Intake and Output Vital Signs (last 24 hours): Temp Pulse Resp BP Pulse Ox 97.6 F 62 20 147/75 95 07/13/17 23:15 07/14/17 05:59 07/13/17 23:15 07/13/17 23:15 07/13/17 23:15 Intake and Output: 07/14/17 07/14/17 06:59 18:59 Intake Total 480 Balance 480 - Medications Medications: Current Medications Acetaminophen (Tylenol 650mg/20.3ml Solution Ud) 650 mg PO Q6 PRN PRN Reason: Fever 100.6 and above Last Admin: 07/06/17 11:58 Dose: 650 mg Albuterol/Ipratropium (Duoneb 3 Mg/0.5 Mg (3 Ml) Ud) 3 ml INH RQ6 [facility] Last Admin: 07/14/17 08:05 Dose: 3 ml Alprazolam (Xanax) 0.25 mg PO BID PRN PRN Reason: Anxiety Stop: 07/19/17 00:01 Last Admin: 07/12/17 00:17 Dose: 0.25 mg Amlodipine Besylate (Norvasc) 10 mg PO DAILY [facility] Last Admin: 07/13/17 09:34 Dose: 10 mg Aspirin (Aspirin Chewable) 81 mg PO DAILY [facility] Last Admin: 07/13/17 09:34 Dose: 81 mg Clonidine HCl (Catapres) 0.1 mg PO TID [facility] Last Admin: 07/13/17 18:10 Dose: 0.1 mg Clopidogrel Bisulfate (Plavix) 75 mg PO DAILY [facility] Epoetin Pieter (Procrit) 10,000 unit SC TTS [facility] Last Admin: 07/11/17 10:50 Dose: 10,000 unit Famotidine (Pepcid) 20 mg PO DAILY [facility] Last Admin: 07/13/17 09:34 Dose: 20 mg Ferric Sodium Gluconate Complex (Ferrlecit) 125 mg IVPB DAILY [facility] Stop: 07/15/17 23:21 Last Admin: 07/13/17 09:34 Dose: 125 mg Furosemide (Lasix) 40 mg IVP DAILY [facility] Hydralazine HCl (Apresoline) 10 mg IVP Q6H [facility] Last Admin: 07/14/17 07:01 Dose: 10 mg Insulin Glargine (Lantus) 19 unit SC HS [facility] Insulin Human Regular (Novolin R) 0 unit SC Q6H [facility] PRN Reason: Protocol Last Admin: 07/14/17 08:55 Dose: 4 unit Losartan Potassium (Cozaar) 50 mg PO BID [facility] Last Admin: 07/06/17 09:34 Dose: 50 mg Metoprolol Tartrate (Lopressor) 75 mg PO BID [facility] Prednisone (Prednisone Tab) 40 mg PO DAILY [facility] PRN Reason: Taper Stop: 07/21/17 09:59 Rosuvastatin Calcium (Crestor) 10 mg PO HS [facility] Last Admin: 07/13/17 21:32 Dose: 10 mg Fluticasone/Salmeterol (Advair Diskus 250/50) 1 puff INH RQ12 [facility] Last Admin: 07/14/17 08:05 Dose: 1 puff Tiotropium [place] (Spiriva) 18 mcg INH RQ24 [facility] Last Admin: 07/13/17 07:21 Dose: Not Given Vitamin B Complex/Vit C/Folic Acid (Nephro-Lc) 1 tab PO 0800 [facility] Last Admin: 07/13/17 08:31 Dose: 1 tab - Labs Labs: 07/14/17 07:05 07/14/17 07:05 PT 13.6 SECONDS (9.7-12.2) H 07/06/17 06:28 INR 1.2 07/06/17 06:28 APTT 33 SECONDS (21-34) D 07/06/17 06:28
[2017-07-14] MEDS: Ferric Sodium Gluconat Complex 62.5 mg/5 ml Vial IVPB SCH (09:15)
--- NOTE | 2017-07-14 10:36 | CP.PCM.CON ---
History of Present Illness - History of Present Illness History of Present Illness: Chart reviewed Re: 'ventricular tachycardia" 67 year old with history of congestive heart failure coronary artery disease and coronary artery pass graft surgery presented with dyspnea and symptoms suggestive of heart failure Hospital course marked by resolution of hemodynamic instability blood gas optimization and runs of non sustained broad complex tachycardia Past Patient History - Infectious Disease Hx of Infectious Diseases: None - Past Medical History & Family History Past Medical History?: Yes - Past Social History Smoking Status: Never Smoked - CARDIAC Hx Cardiac Disorders: Yes (CAD) Hx Congestive Heart Failure: Yes Hx Hypertension: Yes - PULMONARY Hx Respiratory Disorders: No - NEUROLOGICAL HX Cerebrovascular Accident: Yes (5 YEARS BACK) - HEENT Hx HEENT Problems: No - RENAL Hx Chronic Kidney Disease: Yes Other/Comment: CRI - ENDOCRINE/METABOLIC Hx Diabetes Mellitus Type 2: Yes - HEMATOLOGICAL/ONCOLOGICAL Hx Blood Disorders: No - INTEGUMENTARY Hx Dermatological Problems: No - MUSCULOSKELETAL/RHEUMATOLOGICAL Hx Musculoskeletal Disorders: No Hx Falls: Yes - GASTROINTESTINAL Hx Gastrointestinal Disorders: No - GENITOURINARY/GYNECOLOGICAL Hx Genitourinary Disorders: No - PSYCHIATRIC Hx Substance Use: No - SURGICAL HISTORY Other/Comment: triple by pass 2006 - ANESTHESIA Hx Anesthesia: Yes Meds Allergies/Adverse Reactions: Allergies Allergy/AdvReac Type Severity Reaction Status Date / Time No Known Allergies Allergy Verified 07/02/17 14:39 - Medications Medications: Current Medications Acetaminophen (Tylenol 650mg/20.3ml Solution Ud) 650 mg PO Q6 PRN PRN Reason: Fever 100.6 and above Last Admin: 07/06/17 11:58 Dose: 650 mg Albuterol/Ipratropium (Duoneb 3 Mg/0.5 Mg (3 Ml) Ud) 3 ml INH RQ6 [facility] Last Admin: 07/14/17 08:05 Dose: 3 ml Alprazolam (Xanax) 0.25 mg PO BID PRN PRN Reason: Anxiety Stop: 07/19/17 00:01 Last Admin: 07/12/17 00:17 Dose: 0.25 mg Amlodipine Besylate (Norvasc) 10 mg PO DAILY [facility] Last Admin: 07/14/17 09:13 Dose: 10 mg Aspirin (Aspirin Chewable) 81 mg PO DAILY [facility] Last Admin: 07/14/17 09:12 Dose: 81 mg Clonidine HCl (Catapres) 0.1 mg PO TID [facility] Last Admin: 07/14/17 09:13 Dose: 0.1 mg Clopidogrel Bisulfate (Plavix) 75 mg PO DAILY [facility] Last Admin: 07/14/17 09:12 Dose: 75 mg Epoetin Pieter (Procrit) 10,000 unit SC TTS [facility] Last Admin: 07/11/17 10:50 Dose: 10,000 unit Famotidine (Pepcid) 20 mg PO DAILY [facility] Last Admin: 07/14/17 09:13 Dose: 20 mg Ferric Sodium Gluconate Complex (Ferrlecit) 125 mg IVPB DAILY [facility] Stop: 07/15/17 23:21 Last Admin: 07/14/17 09:15 Dose: 125 mg Furosemide (Lasix) 40 mg IVP DAILY [facility] Last Admin: 07/14/17 09:14 Dose: 40 mg Hydralazine HCl (Apresoline) 10 mg IVP Q6H [facility] Last Admin: 07/14/17 07:01 Dose: 10 mg Insulin Glargine (Lantus) 19 unit SC [facility] Insulin Human Regular (Novolin R) 0 unit SC Q6H [facility] PRN Reason: Protocol Last Admin: 07/14/17 08:55 Dose: 4 unit Losartan Potassium (Cozaar) 50 mg PO BID [facility] Last Admin: 07/06/17 09:34 Dose: 50 mg Metoprolol Tartrate (Lopressor) 75 mg PO BID [facility] Last Admin: 07/14/17 09:13 Dose: 75 mg Prednisone (Prednisone Tab) 40 mg PO DAILY [facility] PRN Reason: Taper Stop: 07/21/17 09:59 Last Admin: 07/14/17 09:12 Dose: 40 mg Rosuvastatin Calcium (Crestor) 10 mg PO HS [facility] Last Admin: 07/13/17 21:32 Dose: 10 mg Fluticasone/Salmeterol (Advair Diskus 250/50) 1 puff INH RQ12 [facility] Last Admin: 07/14/17 08:05 Dose: 1 puff Tiotropium [place] (Spiriva) 18 mcg INH RQ24 [facility] Last Admin: 07/13/17 07:21 Dose: Not Given Vitamin B Complex/Vit C/Folic Acid (Nephro-Lc) 1 tab PO 0800 [facility] Last Admin: 07/14/17 08:00 Dose: 1 tab Results - Vital Signs Recent Vital Signs: Last Vital Signs Temp 97.6 F 07/13/17 23:15 Pulse 62 07/14/17 05:59 Resp 20 07/13/17 23:15 BP 159/84 H 07/14/17 09:14 Pulse Ox 95 07/13/17 23:15 - Labs Result Diagrams: 07/14/17 07:05 07/14/17 07:05 Labs: Laboratory Results - last 24 hr 07/13/17 07/13/17 07/13/17 12:08 12:39 12:39 WBC 11.7 H D RBC 3.65 L Hgb 9.9 L Hct 32.0 L MCV 87.8 MCH 27.0 MCHC 30.8 L RDW 18.1 H Plt Count 295 MPV 9.0 Neut % (Auto) 86.0 H Lymph % (Auto) 7.3 L [place] % (Auto) 6.2 Eos % (Auto) 0.3 Baso % (Auto) 0.2 Neut # 10.0 H Lymph # 0.9 L [place] # 0.7 Eos # 0.0 Baso # 0.0 Neutrophils % (Manual) 85 H Band Neutrophils % 1 Lymphocytes % (Manual) 9 L Monocytes % (Manual) 4 Eosinophils % (Manual) 1 Platelet Estimate Normal Hypochromasia (manual) Slight Poikilocytosis (manual Slight Anisocytosis (manual) Slight Target Cells Slight Sodium 134 Potassium 4.3 Chloride 96 L Carbon Dioxide 31 H Anion Gap 11 BUN 70 H Creatinine 3.0 H Est GFR ( Amer) 26 Est GFR (Non-Af Amer) 21 POC Glucose (mg/dL) 358 H Random Glucose 384 H Calcium 8.4 L Phosphorus 4.5 Magnesium 2.5 H Total Bilirubin 0.4 AST 20 ALT 33 Alkaline Phosphatase 96 Troponin I 0.0860 NT-Pro-B Natriuret Pep 7950 H Total Protein 7.4 Albumin 3.3 L Globulin 4.1 H Albumin/Globulin Ratio 0.8 L 07/13/17 07/13/17 07/14/17 17:00 21:06 06:42 WBC RBC Hgb Hct MCV MCH MCHC RDW Plt Count MPV Neut % (Auto) Lymph % (Auto) [place] % (Auto) Eos % (Auto) Baso % (Auto) Neut # Lymph # [place] # Eos # Baso # Neutrophils % (Manual) Band Neutrophils % Lymphocytes % (Manual) Monocytes % (Manual) Eosinophils % (Manual) Platelet Estimate Hypochromasia (manual) Poikilocytosis (manual Anisocytosis (manual) Target Cells Sodium Potassium Chloride Carbon Dioxide Anion Gap BUN Creatinine Est GFR ( Amer) Est GFR (Non-Af Amer) POC Glucose (mg/dL) 408 H* 454 H* 334 H Random Glucose Calcium Phosphorus Magnesium Total Bilirubin AST ALT Alkaline Phosphatase Troponin I NT-Pro-B Natriuret Pep Total Protein Albumin Globulin Albumin/Globulin Ratio 07/14/17 07/14/17 07:05 07:05 WBC 9.4 RBC 3.71 L Hgb 10.2 L Hct 32.4 L MCV 87.3 MCH 27.4 MCHC 31.4 L RDW 18.4 H Plt Count 269 MPV 9.1 Neut % (Auto) 80.5 H Lymph % (Auto) 12.2 L [place] % (Auto) 6.8 Eos % (Auto) 0.4 Baso % (Auto) 0.1 Neut # 7.6 H Lymph # 1.1 [place] # 0.6 Eos # 0.0 Baso # 0.0 Neutrophils % (Manual) Band Neutrophils % Lymphocytes % (Manual) Monocytes % (Manual) Eosinophils % (Manual) Platelet Estimate Hypochromasia (manual) Poikilocytosis (manual Anisocytosis (manual) Target Cells Sodium 137 Potassium 4.1 Chloride 98 Carbon Dioxide 29 Anion Gap 13 BUN 73 H Creatinine 2.3 H Est GFR ( Amer) 35 Est GFR (Non-Af Amer) 29 POC Glucose (mg/dL) Random Glucose 381 H Calcium 8.7 Phosphorus 4.6 H Magnesium 2.6 H Total Bilirubin 0.4 AST 17 ALT 38 Alkaline Phosphatase 95 Troponin I NT-Pro-B Natriuret Pep Total Protein 7.1 Albumin 3.2 L Globulin 4.0 H Albumin/Globulin Ratio 0.8 L Assessment & Plan - Assessment and Plan (Free Text) Assessment: 67 year old with history of congestive heart failure coronary artery disease and coronary artery pass graft surgery presented with dyspnea and symptoms suggestive of heart failure;Hospital course marked by resolution of hemodynamic instability blood gas optimization and runs of non sustained broad complex tachycardia EKG showed a bifascicular block and left ventricular hypertrophy; echo showed LV thickening diastolic dysfunction and pulmonary hypertension The significance of the monomorphic ventricular tachyarrhythmia (presumed, doubt aberration) in a setting of hypertensive heart disease with preserved LV systolic function is unclear would exclude coronary disease (of note azotemia) and revascularize if needed and then revisit the tachycardia In the interim would optimize fluid s blood gasses and electrolytes and maximize beta blockade ( bifascicular block noted) Plan: see above
--- NOTE | 2017-07-14 12:57 | PN ---
DATE: 07/14/2017 TIME OF EVALUATION: 06:40 a.m. NEUROLOGICAL PROBLEM: Metabolic encephalopathy complicated with incidental acute stroke in right centrum semiovale as per MRI. History of cerebral aneurysm. PHYSICAL EXAMINATION: VITAL SIGNS: Blood pressure 147/75, mean arterial pressure 99, respiratory rate 16, and temperature 97.6 with a pulse rate 62. The patient did have MRI of the brain showed right acute stroke at diffusion-weighted images in right centrum ovale, which is incidental finding. MRI showed tight stenosis over right intracranial cavernous part of the MCA region (cavernous part of the right internal parotid artery). 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 RECOMMENDATIONS: 1. From new stroke, the patient should be on dual antiplatelets for now. The patient should control his blood pressure, diabetes, and weight. The patient should be on proper pressures for his BiPAP during sleep. 2. Followup MRA, which is consistent with 3.5 mm aneurysm at the basilar artery as discussed with his earlier. Because of the complicated location, I will leave this alone unless the patient is symptomatic or increasing in size in the near future; however, when medically stable, the patient should have neurovascular surgical consultation to assess his status. If medically cleared at that point as mentioned the patient can get intravascular coiling, if medically permissible. 3. Continue the present management. The patient should have polysomnogram to assess his obstructive sleep apnea status in order to get proper pressure in his BiPAP setting. 4. The patient will be followed while he is in the hospital. Arslan Carl MD
[2017-07-14] MEDS ORDERED: (Lantus) Insulin Glargine, Recombinant SC SCH ×2 (22:00)
--- NOTE | 2017-07-14 23:42 | CP.PCM.PN ---
Subjective - Date & Time of Evaluation Date of Evaluation: 07/14/17 Time of Evaluation: 19:40 - Subjective Subjective: Patient seen and evaluated EP inocencia appreciated Not a candidate for cath now (Acute on Chronic CKD, New stroke, Brain aneurysm) Medical mgt for now Physical Examination - Constitutional Appears: Non-toxic, No Acute Distress - Head Exam Head Exam: ATRAUMATIC, NORMAL INSPECTION, NORMOCEPHALIC - Eye Exam Eye Exam: EOMI, PERRL - ENT Exam ENT Exam: Mucous Membranes Moist - Neck Exam Neck Exam: Full ROM - Respiratory Exam Respiratory Exam: absent: Wheezes - Cardiovascular Exam Cardiovascular Exam: +S1, +S2 - GI/Abdominal Exam GI & Abdominal Exam: Soft, Normal Bowel Sounds - Extremities Exam Extremities Exam: Normal Capillary Refill, Pedal Edema (1+ pitting). absent: Tenderness - Psychiatric Exam Psychiatric exam: Flat Affect - Skin Skin Exam: Dry, Normal Color, Warm Objective - Vital Signs/Intake and Output Vital Signs (last 24 hours): Temp Pulse Resp BP Pulse Ox 97.9 F 75 20 156/87 H 98 07/14/17 15:18 07/14/17 16:00 07/14/17 15:18 07/14/17 18:43 07/14/17 15:18 - Medications Medications: Current Medications Acetaminophen (Tylenol 650mg/20.3ml Solution Ud) 650 mg PO Q6 PRN PRN Reason: Fever 100.6 and above Last Admin: 07/06/17 11:58 Dose: 650 mg Albuterol/Ipratropium (Duoneb 3 Mg/0.5 Mg (3 Ml) Ud) 3 ml INH RQ6 [facility] Last Admin: 07/14/17 19:17 Dose: 3 ml Alprazolam (Xanax) 0.25 mg PO BID PRN PRN Reason: Anxiety Stop: 07/19/17 00:01 Last Admin: 07/14/17 21:39 Dose: 0.25 mg Amlodipine Besylate (Norvasc) 10 mg PO DAILY [facility] Last Admin: 07/14/17 09:13 Dose: 10 mg Aspirin (Aspirin Chewable) 81 mg PO DAILY [facility] Last Admin: 07/14/17 09:12 Dose: 81 mg Clonidine HCl (Catapres) 0.1 mg PO TID [facility] Last Admin: 07/14/17 18:43 Dose: 0.1 mg Clopidogrel Bisulfate (Plavix) 75 mg PO DAILY [facility] Last Admin: 07/14/17 09:12 Dose: 75 mg Epoetin Pieter (Procrit) 10,000 unit SC TTS [facility] Last Admin: 07/11/17 10:50 Dose: 10,000 unit Famotidine (Pepcid) 20 mg PO DAILY [facility] Last Admin: 07/14/17 09:13 Dose: 20 mg Ferric Sodium Gluconate Complex (Ferrlecit) 125 mg IVPB DAILY [facility] Stop: 07/15/17 23:21 Last Admin: 07/14/17 09:15 Dose: 125 mg Furosemide (Lasix) 40 mg IVP DAILY [facility] Last Admin: 07/14/17 09:14 Dose: 40 mg Hydralazine HCl (Apresoline) 10 mg IVP Q6H [facility] Last Admin: 07/14/17 22:04 Dose: 10 mg Insulin Glargine (Lantus) 19 unit SC [facility] Last Admin: 07/14/17 21:40 Dose: 19 units Insulin Human Regular (Novolin R) 0 unit SC Q6H [facility] PRN Reason: Protocol Last Admin: 07/14/17 18:41 Dose: 5 unit Losartan Potassium (Cozaar) 50 mg PO BID [facility] Last Admin: 07/06/17 09:34 Dose: 50 mg Metoprolol Tartrate (Lopressor) 75 mg PO BID [facility] Last Admin: 07/14/17 18:43 Dose: 75 mg Prednisone (Prednisone Tab) 40 mg PO DAILY [facility] PRN Reason: Taper Stop: 07/21/17 09:59 Last Admin: 07/14/17 09:12 Dose: 40 mg Rosuvastatin Calcium (Crestor) 10 mg PO HS [facility] Last Admin: 07/14/17 21:39 Dose: 10 mg Fluticasone/Salmeterol (Advair Diskus 250/50) 1 puff INH RQ12 [facility] Last Admin: 07/14/17 19:17 Dose: 1 puff Tiotropium [place] (Spiriva) 18 mcg INH RQ24 [facility] Last Admin: 07/13/17 07:21 Dose: Not Given Vitamin B Complex/Vit C/Folic Acid (Nephro-Lc) 1 tab PO 0800 [facility] Last Admin: 07/14/17 08:00 Dose: 1 tab - Labs Labs: 07/14/17 07:05 07/14/17 07:05 PT 13.6 SECONDS (9.7-12.2) H 07/06/17 06:28 INR 1.2 07/06/17 06:28 APTT 33 SECONDS (21-34) D 07/06/17 06:28 Assessment and Plan - Assessment and Plan (Free Text) Assessment: Elevated Troponin Assessment and Plan: Mildly elevated but later trended down: It could have been due to ischemic changes but may also be due to CHF exacerbation as well No ST segment changes appreciated on EKG 07/06 Cont to monitor Status: Acute CHF exacerbation Assessment and Plan: S/P intubation due to resp distress on 07/05. Will likely be extubated soon. On IV Lasix 40 IV Q12 ECHO: EF 65%, mild calcified thickening of aortic valve. Refer to complete report Status: Acute Hypertension Assessment and Plan: On Metoprolol, Cozaar and Hydralazine Elevated overnight. Cont to monitor. Avoid IVF Status: Chronic History of coronary artery bypass graft Assessment and Plan: Crestor 10 mg PO HS On Metoprolol BID, ASA daily. Would like Neuro clearance before cardiac cath is performed. Patient would benefit from MRI/MRA to visualize cerebral vasculature. Status: Chronic History of diabetes mellitus Assessment and Plan: Accuchecks Sliding scale Hold Parameters in place A1c 6.8 Status: Chronic History of TIA (transient ischemic attack) Assessment and Plan: 07/[address]- Intracranial arterial calcifications; stable chronic infarcts noted. Refer to full report. Would benefit from MRI of brain. EEG reviewed by Neuro- Slow wave activity noted w/o paroxysmal activity or focal slowing Neuro on the case. See above. Cont to monitor Status: Acute Hypercholesterolemia Assessment and Plan: On Crestor Would benefit from diet and exercise modifications following current hospital course Status: Chronic Family history of cerebral aneurysm Assessment and Plan: Strong family history. Patient's counseled on the importance of imaging for children to rule out aneurysms. Head CT did not appear to show signs of aneurysmal disease. Neuro on case for AMS Status: Acute Prophylactic measure Assessment and Plan: SCDs contraindicated due to swelling Heparin SC Q12 Pepcid 20 mg IV daily Status: Acute
--- NOTE | 2017-07-14 23:56 | PN ---
FOLLOWUP RENAL CONSULTATION DATE: LOCATION: Room 663, bed A. REQUESTED BY: Paola Adams MD REASON FOR RENAL FOLLOWUP: Acute renal failure, chronic kidney disease, anemia for further evaluation. SUBJECTIVE: Mr. Flowers is a 67-year-old elderly obese [place]e male with history of longstanding hypertension, diabetes, hyperlipidemia, coronary artery disease status post CABG, also multiple CVA, intracranial aneurysm, chronic kidney disease, who was admitted with altered mental status, hypoglycemia and shortness of breath. Subsequently, his hospital course complicated by respiratory failure and requiring intubation. The patient is feeling much better, not in acute distress. Denies any headache, dizziness. Denies any chest pain or palpitation. Denies any fever or cough. Complaints of feeling thirsty. PHYSICAL EXAMINATION: GENERAL: Mr. Flowers is a 67-year-old elderly obese male, well built, well nourished not in distress. VITAL SIGNS: As follows; this morning, blood pressure 159/84, pulse 66, respirations 20, temperature 97.9, saturation 98%, height 5 feet 6 inches, weight is 186 pounds. HEENT: Pupils normal reactive to light and accommodation. Conjunctivae pink. Sclerae anicteric. Tongue is moist. Trachea is midline. LUNGS: Symmetric on both sides. Bilateral breath sounds present. Clear on auscultation. CARDIOVASCULAR: [place] at the fifth intercostal space, midclavicular. S1 and S2 audible. No murmur and no gallop. ABDOMEN: Normal in appearance, soft, tympanic. No guarding. No rigidity. No hepatosplenomegaly. No abdominal bruit. The patient has mid sternal scar present. CENTRAL NERVOUS SYSTEM: The patient is alert, awake, and oriented x3. Sensory and motor system is grossly within normal limits. EXTREMITIES: No cyanosis. No clubbing. No edema. LABORATORY DATA: Include as follows as of 07/14/2017, WBC 9.4, hemoglobin 10.8, hematocrit is 32.4, and platelets 269. Sodium 137, potassium 4.1, chloride 98, CO2 of 29, BUN 73, creatinine 2.3 and glucose 381. Calcium 8.7, phosphorus 4.6, and magnesium 2.6, total protein 7.1, albumin is 3.2. CURRENT MEDICATIONS: Include as follows: Advair inhaler 1 puff q. 12 hours, hydralazine 10 mg IV q. 6 hours p.r.n., aspirin 81 mg daily, clonidine 0.1 mg t.i.d., Crestor 10 mg at bedtime, DuoNeb inhaler, ferrous gluconate 125 mg IV daily, Lantus 19 units subcutaneous at bedtime, Lasix 40 mg IV daily, metoprolol tartrate 75 mg p.o. b.i.d., Nephro-Lc 1 tablet daily, insulin per sliding scale and Pepcid 20 mg p.o, daily, Plavix 75 mg daily, prednisone 40 mg p.o. daily, Epogen 10,000 units 3 times a week, Spiriva, Tylenol and Xanax. ASSESSMENT AND PLAN: In summary, Mr. Flowers is a 67-year-old elderly [place]e male with hypertension, diabetes, coronary artery disease status post coronary artery bypass graft, multiple infarcts with intracranial 3.5 mm aneurysm suggested at the left side of the proximal basal artery, consider correlation with conventional CT angiography by MRA report, with increased BUN and creatinine. 1. Acute renal failure on chronic kidney disease. Renal function is slightly better today. 2. Anemia secondary to chronic kidney disease and iron deficiency anemia, rule out multiple myeloma. 3. Uncontrolled diabetes. 4. Hypertension. Continue his current blood pressure medication and try to keep blood pressure below 130/80. Titrate antihypertensive medications as needed. Also we will get the urine immunofixation and serum immunofixation to rule out multiple myeloma. Consider hematology consult as inpatient or outpatient once urine immunofixation and serum immunofixation labs are available. We will follow with you. Thank you for allowing me to participate in our patient's care. Susana Jones MD
[2017-07-15] MEDS: (Novolin R) Insulin Human Regular 100 units/ml vial SC SCH ×5 (00:28→18:17)
[2017-07-15] MEDS ORDERED: (Lantus) Insulin Glargine, Recombinant SC SCH ×2 (00:37→22:00)
--- NOTE | 2017-07-15 01:27 | PN ---
DATE: 07/14/2017 SUBJECTIVE: The patient seen. The patient is more alert, verbal, conversing in Tagalog. The patient seen with his . The patient is sleeping better. He is more manageable; however, his blood sugar level seems to be markedly elevated in 300 to 400 range. His last blood sugar was 391, but the patient is currently taking prednisone, which enforces blood sugar to go up. PHYSICAL EXAMINATION: VITAL SIGNS: Temperature is 97.9, pulse rate is 75, blood pressure is 156/87, respirations 20, oxygen saturation 98% on room air. REVIEW OF SYSTEMS: GENERAL: The patient is alert and oriented x3, conversing in Tagalog, seen with his . SKIN: No diaphoresis. HEENT: No headache. No dizziness. NECK: Supple. RESPIRATORY: No dyspnea. CARDIOVASCULAR: No chest pain. GASTROINTESTINAL: He is eating better. EXTREMITIES: Moving extremities. MUSCULOSKELETAL: Feels week. NEUROLOGIC: Alert and oriented x3. GENITOURINARY: No dysuria. MENTAL STATUS EXAMINATION: An elderly male, looks stated age, oriented x3. Mood is irritable at times. Affect is reactive. Speech spontaneous. Thought process coherent. Thought content, the patient wants to go home, but has agreed to go for subacute rehab. He is anxious to leave the hospital, but the patient is amenable for treatment for now. The patient is only taking Xanax p.r.n., which he is tolerating for anxiety; however, the patient is chronically having delusions of morbid jealousy to his . According to the , the patient gave a dirty look when she came today. He is constantly asking about his 's whereabouts, but this is a chronic problem. Attention and memory seem to be fair. Insight and judgement fair. Impulse control is fair. The patient has no suicidal ideation or psychosis. 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 PLAN AND RECOMMENDATIONS: The patient is seen and medications reviewed. Continue present management. The patient is for possible subacute rehab, but not medically stable at this time. We will continue the Xanax 0.25 mg p.o. b.i.d. for anxiety. The patient also to continue treatment plan as outlined. Ren Kyle MD MTDColleen
[2017-07-15] MEDS: Albuterol-Ipratrop 3 mg / 0.5 (3 ml) UD INH SCH ×4 (02:37→21:17)
--- NOTE | 2017-07-15 08:57 | CP.PCM.PN ---
Subjective - Date & Time of Evaluation Date of Evaluation: 07/15/17 Time of Evaluation: 00:00 - Subjective Subjective: patient seen, is more vocal- some confusion, saying he cannot remember why he is in the hospital again discussion of evenets patient remained on one on one staff reports - disoriented at times, trying to get out of bed afebrile. on Nasal canula no t in distress discussion with neuro and cardiology Review of laboratory Sugar remains high despite adjusting Insulin and adding 1 mg glimepirde TLC dietary discussed Objective - Vital Signs/Intake and Output Vital Signs (last 24 hours): Temp Pulse Resp BP Pulse Ox 98.3 F 70 20 157/87 H 100 07/14/17 23:44 07/15/17 05:38 07/14/17 23:44 07/14/17 23:44 07/14/17 23:44 Intake and Output: 07/15/17 07/15/17 06:59 18:59 Intake Total 600 Balance 600 - Medications Medications: Current Medications Acetaminophen (Tylenol 650mg/20.3ml Solution Ud) 650 mg PO Q6 PRN PRN Reason: Fever 100.6 and above Last Admin: 07/06/17 11:58 Dose: 650 mg Albuterol/Ipratropium (Duoneb 3 Mg/0.5 Mg (3 Ml) Ud) 3 ml INH RQ6 [facility] Last Admin: 07/15/17 07:21 Dose: 3 ml Alprazolam (Xanax) 0.25 mg PO BID PRN PRN Reason: Anxiety Stop: 07/19/17 00:01 Last Admin: 07/14/17 21:39 Dose: 0.25 mg Amlodipine Besylate (Norvasc) 10 mg PO DAILY [facility] Last Admin: 07/14/17 09:13 Dose: 10 mg Aspirin (Aspirin Chewable) 81 mg PO DAILY [facility] Last Admin: 07/14/17 09:12 Dose: 81 mg Clonidine HCl (Catapres) 0.1 mg PO TID [facility] Last Admin: 07/14/17 18:43 Dose: 0.1 mg Clopidogrel Bisulfate (Plavix) 75 mg PO DAILY [facility] Last Admin: 07/14/17 09:12 Dose: 75 mg Epoetin Pieter (Procrit) 10,000 unit SC TTS [facility] Last Admin: 07/11/17 10:50 Dose: 10,000 unit Famotidine (Pepcid) 20 mg PO DAILY [facility] Last Admin: 07/14/17 09:13 Dose: 20 mg Ferric Sodium Gluconate Complex (Ferrlecit) 125 mg IVPB DAILY [facility] Stop: 07/15/17 23:21 Last Admin: 07/14/17 09:15 Dose: 125 mg Furosemide (Lasix) 40 mg IVP DAILY [facility] Last Admin: 07/14/17 09:14 Dose: 40 mg Glimepiride (Amaryl) 1 mg PO DAILY [facility] Hydralazine HCl (Apresoline) 10 mg IVP Q6H [facility] Last Admin: 07/15/17 05:11 Dose: 10 mg Insulin Glargine (Lantus) 22 unit SC HS [facility] Insulin Human Regular (Novolin R) 0 unit SC Q6H [facility] PRN Reason: Protocol Last Admin: 07/15/17 05:20 Dose: 2 unit Losartan Potassium (Cozaar) 50 mg PO BID [facility] Last Admin: 07/06/17 09:34 Dose: 50 mg Metoprolol Tartrate (Lopressor) 75 mg PO BID [facility] Last Admin: 07/14/17 18:43 Dose: 75 mg Prednisone (Prednisone Tab) 40 mg PO DAILY [facility] PRN Reason: Taper Stop: 07/21/17 09:59 Last Admin: 07/14/17 09:12 Dose: 40 mg Rosuvastatin Calcium (Crestor) 10 mg PO HS [facility] Last Admin: 07/14/17 21:39 Dose: 10 mg Fluticasone/Salmeterol (Advair Diskus 250/50) 1 puff INH RQ12 [facility] Last Admin: 07/14/17 19:17 Dose: 1 puff Tiotropium [place] (Spiriva) 18 mcg INH RQ24 [facility] Last Admin: 07/13/17 07:21 Dose: Not Given Vitamin B Complex/Vit C/Folic Acid (Nephro-Lc) 1 tab PO 0800 [facility] Last Admin: 07/14/17 08:00 Dose: 1 tab - Labs Labs: 07/14/17 07:05 07/14/17 07:05 PT 13.6 SECONDS (9.7-12.2) H 07/06/17 06:28 INR 1.2 07/06/17 06:28 APTT 33 SECONDS (21-34) D 07/06/17 06:28 - Constitutional Appears: Non-toxic, Confused - Head Exam Head Exam: ATRAUMATIC, NORMOCEPHALIC - Eye Exam Eye Exam: Normal appearance. absent: Nystagmus - ENT Exam ENT Exam: Mucous Membranes Moist - Neck Exam Neck Exam: Full ROM. absent: Tenderness - Respiratory Exam Respiratory Exam: Clear to Ausculation Bilateral, NORMAL BREATHING PATTERN. absent: Wheezes - Cardiovascular Exam Cardiovascular Exam: REGULAR RHYTHM - GI/Abdominal Exam GI & Abdominal Exam: Soft, Normal Bowel Sounds. absent: Tenderness - Extremities Exam Extremities Exam: Full ROM, Normal Inspection. absent: Pedal Edema - Neurological Exam Neurological Exam: Alert, Awake, Oriented x3 (in bed moves all extremeties , can ambulate) - Psychiatric Exam Psychiatric exam: Normal Mood (very vocal trying to make conversation) - Skin Skin Exam: Intact, Normal Color Assessment and Plan - Assessment and Plan (Free Text) Assessment: Patent with CAD with Cerebral aneuysm- no further neuro and cardio work up at this time as discussed with cardio and neuro IDDM2 - adjusting insulin and medication- steroid is being tapered CRI stable Continue Lasix for fluid overload which is currently controlled Debility for subacute with episodes of disorientation, agitation- needs one on one- discussed if candidate for other supervisor intermediates care will discuss with family
[2017-07-15] MEDS: Multivitamin Vitamin B Complex (Nephro-Vite) Tab PO SCH (09:30)
[2017-07-15] MEDS: Tiotropium 18 mcg Cap For Inhalation INH SCH (09:32)
[2017-07-15] MEDS: Ferric Sodium Gluconat Complex 62.5 mg/5 ml Vial IVPB SCH (09:32)
[2017-07-15] MEDS: Fluticasone-Salmeterol 250-50mcg Diskus INH SCH ×2 (09:36→21:17)
--- NOTE | 2017-07-15 10:01 | CP.PCM.PN ---
<Augusta Madison - Last Filed: 07/15/17 13:54> Subjective - Date & Time of Evaluation Date of Evaluation: 07/15/17 Time of Evaluation: 09:00 - Subjective Subjective: Pulmonology Note for Dr. Alves's Service Patient was seen and examined at bedside. He reports he feels well. No more episodes of VTACH. Denied fever, chills, headache, chest pain, SOB, cough abdominal pain, n/v/d/c, or urinary symptoms. Objective - Vital Signs/Intake and Output Vital Signs (last 24 hours): Temp Pulse Resp BP Pulse Ox 97.5 F L 68 20 174/95 H 100 07/15/17 07:30 07/15/17 07:30 07/15/17 07:30 07/15/17 09:31 07/14/17 23:44 Intake and Output: 07/15/17 07/15/17 06:59 18:59 Intake Total 600 Balance 600 - Medications Medications: Current Medications Acetaminophen (Tylenol 650mg/20.3ml Solution Ud) 650 mg PO Q6 PRN PRN Reason: Fever 100.6 and above Last Admin: 07/06/17 11:58 Dose: 650 mg Albuterol/Ipratropium (Duoneb 3 Mg/0.5 Mg (3 Ml) Ud) 3 ml INH RQ6 [facility] Last Admin: 07/15/17 07:21 Dose: 3 ml Alprazolam (Xanax) 0.25 mg PO BID PRN PRN Reason: Anxiety Stop: 07/19/17 00:01 Last Admin: 07/14/17 21:39 Dose: 0.25 mg Amlodipine Besylate (Norvasc) 10 mg PO DAILY [facility] Last Admin: 07/14/17 09:13 Dose: 10 mg Aspirin (Aspirin Chewable) 81 mg PO DAILY [facility] Last Admin: 07/15/17 09:29 Dose: 81 mg Clonidine HCl (Catapres) 0.1 mg PO QID [facility] Last Admin: 07/15/17 09:31 Dose: 0.1 mg Clopidogrel Bisulfate (Plavix) 75 mg PO DAILY [facility] Last Admin: 07/15/17 09:29 Dose: 75 mg Epoetin Pieter (Procrit) 10,000 unit SC TTS [facility] Last Admin: 07/11/17 10:50 Dose: 10,000 unit Famotidine (Pepcid) 20 mg PO DAILY [facility] Last Admin: 07/15/17 09:29 Dose: 20 mg Ferric Sodium Gluconate Complex (Ferrlecit) 125 mg IVPB DAILY [facility] Stop: 07/15/17 23:21 Last Admin: 07/15/17 09:32 Dose: 125 mg Furosemide (Lasix) 40 mg IVP DAILY [facility] Last Admin: 07/15/17 09:31 Dose: 40 mg Glimepiride (Amaryl) 1 mg PO BIDAC [facility] Last Admin: 07/15/17 09:29 Dose: 1 mg Hydralazine HCl (Apresoline) 10 mg IVP Q6H [facility] Last Admin: 07/15/17 05:11 Dose: 10 mg Insulin Glargine (Lantus) 24 unit SC [facility] Insulin Human Regular (Novolin R) 0 unit SC Q6H [facility] PRN Reason: Protocol Last Admin: 07/15/17 05:20 Dose: 2 unit Losartan Potassium (Cozaar) 50 mg PO BID [facility] Last Admin: 07/06/17 09:34 Dose: 50 mg Metoprolol Tartrate (Lopressor) 75 mg PO BID [facility] Last Admin: 07/15/17 09:29 Dose: 75 mg Prednisone (Prednisone Tab) 40 mg PO DAILY [facility] PRN Reason: Taper Stop: 07/21/17 09:59 Last Admin: 07/15/17 09:30 Dose: 30 mg Rosuvastatin Calcium (Crestor) 10 mg PO HS [facility] Last Admin: 07/14/17 21:39 Dose: 10 mg Fluticasone/Salmeterol (Advair Diskus 250/50) 1 puff INH RQ12 [facility] Last Admin: 07/14/17 19:17 Dose: 1 puff Tiotropium [place] (Spiriva) 18 mcg INH RQ24 [facility] Last Admin: 07/15/17 09:32 Dose: Not Given Vitamin B Complex/Vit C/Folic Acid (Nephro-Lc) 1 tab PO 0800 [facility] Last Admin: 07/15/17 09:30 Dose: 1 tab - Labs Labs: 07/14/17 07:05 07/14/17 07:05 PT 13.6 SECONDS (9.7-12.2) H 07/06/17 06:28 INR 1.2 07/06/17 06:28 APTT 33 SECONDS (21-34) D 07/06/17 06:28 - Additional Findings Additional findings: - Constitutional Appears: No Acute Distress - Head Exam Head Exam: NORMAL INSPECTION, NORMOCEPHALIC - Eye Exam Eye Exam: EOMI, Normal appearance, PERRL Pupil Exam: NORMAL ACCOMODATION - ENT Exam ENT Exam: Mucous Membranes Moist, Normal Exam, Normal Oropharynx. absent: Mucous Membranes Dry - Neck Exam Neck Exam: Normal Inspection. absent: Lymphadenopathy, Thyromegaly - Respiratory Exam Respiratory Exam: Clear to Ausculation Bilateral, NORMAL BREATHING PATTERN. absent: Rales, Rhonchi, Wheezes - Cardiovascular Exam Cardiovascular Exam: REGULAR RHYTHM, RRR, +S1, +S2 - GI/Abdominal Exam GI & Abdominal Exam: Soft, Normal Bowel Sounds. absent: Distended, Tenderness - Extremities Exam Extremities Exam: Normal Inspection. absent: Pedal Edema, Tenderness - Neurological Exam Neurological Exam: Alert, Awake, Oriented x3 - Psychiatric Exam Psychiatric exam: Normal Affect, Normal Mood - Skin Skin Exam: Dry, Intact, Normal Color, Warm Assessment and Plan - Assessment and Plan (Free Text) Plan: Hypercapnic respiratory failure, chronic On admission patient was hypoglycemic, hypercapnic and hypotensive. Chest x-ray showed pulmonary edema. Patient was placed on BiPAP, repeat ABG improving hypercapnia. Continue current management - recommend outpatient sleep study BiPAP PRN Duonebs Q6H Lasix 40mg IVP daily Prednisone 40mg PO daily --> Continue with taper as per primary Spiriva 18mcg INH QD Advair 250/50 Q12H Episodes of VTACH Dr. Butler on consult Recommend EP consult - Dr. Wisdom - help appreciated Not a candidate for cath due to Cerebral Aneurysm and Acute on Chronic CKD Increase Lopressor to 75 mg po bid Hx of HTN Current management as per primary team Hx of CHF ECHO 07/02/17: EF 65%, mild calcified thickening of aortic valve. Refer to complete report Acute on Chronic CKD Hx Obstructive sleep apnea/obesity hypoventilation syndrome History of TIA (transient ischemic attack) Family history of cerebral aneurysm AMS 07/[address]- Intracranial arterial calcifications; stable chronic infarcts noted. Refer to full report. Would benefit from MRI of brain. Head CT did not appear to show signs of aneurysmal disease. EEG reviewed by Neuro- Slow wave activity noted w/o paroxysmal activity or focal slowing Neuro on case for AMS -brain MRI and head MRA ordered, noted to have a Cerebral Aneurysm Cont to monitor DW Gricelda Barahona DO, PGY-1 <Atul Alves - Last Filed: 07/15/17 14:53> Objective - Vital Signs/Intake and Output Vital Signs (last 24 hours): Temp Pulse Resp BP Pulse Ox 97.5 F L 66 20 174/95 H 100 07/15/17 07:30 07/15/17 09:00 07/15/17 07:30 07/15/17 09:31 07/14/17 23:44 Intake and Output: 07/15/17 07/15/17 06:59 18:59 Intake Total 600 Balance 600 - Medications Medications: Current Medications Acetaminophen (Tylenol 650mg/20.3ml Solution Ud) 650 mg PO Q6 PRN PRN Reason: Fever 100.6 and above Last Admin: 07/06/17 11:58 Dose: 650 mg Albuterol/Ipratropium (Duoneb 3 Mg/0.5 Mg (3 Ml) Ud) 3 ml INH RQ6 [facility] Last Admin: 07/15/17 13:37 Dose: 3 ml Alprazolam (Xanax) 0.25 mg PO BID PRN PRN Reason: Anxiety Stop: 07/19/17 00:01 Last Admin: 07/14/17 21:39 Dose: 0.25 mg Amlodipine Besylate (Norvasc) 10 mg PO DAILY [facility] Last Admin: 07/15/17 09:30 Dose: 10 mg Aspirin (Aspirin Chewable) 81 mg PO DAILY [facility] Last Admin: 07/15/17 09:29 Dose: 81 mg Clonidine HCl (Catapres) 0.1 mg PO QID [facility] Last Admin: 07/15/17 09:31 Dose: 0.1 mg Clopidogrel Bisulfate (Plavix) 75 mg PO DAILY [facility] Last Admin: 07/15/17 09:29 Dose: 75 mg Epoetin [place] (Procrit) 10,000 unit SC TTS [facility] Last Admin: 07/11/17 10:50 Dose: 10,000 unit Famotidine (Pepcid) 20 mg PO DAILY [facility] Last Admin: 07/15/17 09:29 Dose: 20 mg Ferric Sodium Gluconate Complex (Ferrlecit) 125 mg IVPB DAILY [facility] Stop: 07/15/17 23:21 Last Admin: 07/15/17 09:32 Dose: 125 mg Furosemide (Lasix) 40 mg IVP DAILY [facility] Last Admin: 07/15/17 09:31 Dose: 40 mg Glimepiride (Amaryl) 1 mg PO BIDAC [facility] Last Admin: 07/15/17 09:29 Dose: 1 mg Hydralazine HCl (Apresoline) 10 mg IVP Q6H [facility] Last Admin: 07/15/17 13:07 Dose: 10 mg Insulin Glargine (Lantus) 24 unit SC HS [facility] Insulin Human Regular (Novolin R) 0 unit SC Q6H [facility] PRN Reason: Protocol Last Admin: 07/15/17 13:07 Dose: 4 unit Losartan Potassium (Cozaar) 50 mg PO BID [facility] Last Admin: 07/06/17 09:34 Dose: 50 mg Metoprolol Tartrate (Lopressor) 75 mg PO BID [facility] Last Admin: 07/15/17 09:29 Dose: 75 mg Prednisone (Prednisone Tab) 30 mg PO DAILY [facility] PRN Reason: Taper Stop: 07/21/17 09:59 Last Admin: 07/15/17 09:30 Dose: 30 mg Rosuvastatin Calcium (Crestor) 10 mg PO HS [facility] Last Admin: 07/14/17 21:39 Dose: 10 mg Fluticasone/Salmeterol (Advair Diskus 250/50) 1 puff INH RQ12 [facility] Last Admin: 07/15/17 09:36 Dose: Not Given Tiotropium [place] (Spiriva) 18 mcg INH RQ24 [facility] Last Admin: 07/15/17 09:32 Dose: Not Given Vitamin B Complex/Vit C/Folic Acid (Nephro-Lc) 1 tab PO 0800 [facility] Last Admin: 07/15/17 09:30 Dose: 1 tab - Labs Labs: 07/14/17 07:05 07/14/17 07:05 PT 13.6 SECONDS (9.7-12.2) H 07/06/17 06:28 INR 1.2 07/06/17 06:28 APTT 33 SECONDS (21-34) D 07/06/17 06:28 Assessment and Plan (1) Hypercapnic respiratory failure, chronic Status: Acute (2) Elevated troponin Status: Acute (3) Pulmonary edema Status: Acute (4) Hypoglycemia Status: Acute Attending/Attestation - Attestation I have personally seen and examined this patient.: Yes I have fully participated in the care of the patient.: Yes I have reviewed all pertinent clinical information, including history, physical exam and plan: Yes Notes (Text): 07/15/17 14:52 Patient seen and examined. Sitting comfortably in no acute distress Continue BiPAP as needed and at night Taper steroids Continue nebulizer treatment Diuretics Physical therapy
--- NOTE | 2017-07-15 18:26 | CP.PCM.PN ---
Subjective - Date & Time of Evaluation Date of Evaluation: 07/15/17 Time of Evaluation: 18:25 - Subjective Subjective: pt is seen and examined, follow up consult is dictated #[id number] sif is positive, need hematology conult to r/o mm Objective - Vital Signs/Intake and Output Vital Signs (last 24 hours): Temp Pulse Resp BP Pulse Ox 97.9 F 78 20 177/98 H 95 07/15/17 16:00 07/15/17 16:00 07/15/17 16:00 07/15/17 18:15 07/15/17 16:00 Intake and Output: 07/15/17 07/15/17 06:59 18:59 Intake Total 600 Balance 600 - Medications Medications: Current Medications Acetaminophen (Tylenol 650mg/20.3ml Solution Ud) 650 mg PO Q6 PRN PRN Reason: Fever 100.6 and above Last Admin: 07/06/17 11:58 Dose: 650 mg Albuterol/Ipratropium (Duoneb 3 Mg/0.5 Mg (3 Ml) Ud) 3 ml INH RQ6 [facility] Last Admin: 07/15/17 13:37 Dose: 3 ml Alprazolam (Xanax) 0.25 mg PO BID PRN PRN Reason: Anxiety Stop: 07/19/17 00:01 Last Admin: 07/14/17 21:39 Dose: 0.25 mg Amlodipine Besylate (Norvasc) 10 mg PO DAILY [facility] Last Admin: 07/15/17 09:30 Dose: 10 mg Aspirin (Aspirin Chewable) 81 mg PO DAILY [facility] Last Admin: 07/15/17 09:29 Dose: 81 mg Clonidine HCl (Catapres) 0.1 mg PO QID [facility] Last Admin: 07/15/17 18:16 Dose: 0.1 mg Clopidogrel Bisulfate (Plavix) 75 mg PO DAILY [facility] Last Admin: 07/15/17 09:29 Dose: 75 mg Epoetin [place] (Procrit) 10,000 unit SC TTS [facility] Last Admin: 07/11/17 10:50 Dose: 10,000 unit Famotidine (Pepcid) 20 mg PO DAILY [facility] Last Admin: 07/15/17 09:29 Dose: 20 mg Ferric Sodium Gluconate Complex (Ferrlecit) 125 mg IVPB DAILY [facility] Stop: 07/15/17 23:21 Last Admin: 07/15/17 09:32 Dose: 125 mg Furosemide (Lasix) 40 mg IVP DAILY [facility] Last Admin: 07/15/17 09:31 Dose: 40 mg Glimepiride (Amaryl) 1 mg PO BIDAC [facility] Last Admin: 07/15/17 17:00 Dose: 1 mg Hydralazine HCl (Apresoline) 10 mg IVP Q6H [facility] Last Admin: 07/15/17 18:00 Dose: 10 mg Insulin Glargine (Lantus) 24 unit SC HS [facility] Insulin Human Regular (Novolin R) 0 unit SC Q6H [facility] PRN Reason: Protocol Last Admin: 07/15/17 18:17 Dose: 6 unit Losartan Potassium (Cozaar) 50 mg PO BID [facility] Last Admin: 07/06/17 09:34 Dose: 50 mg Metoprolol Tartrate (Lopressor) 75 mg PO BID [facility] Last Admin: 07/15/17 18:15 Dose: 75 mg Prednisone (Prednisone Tab) 30 mg PO DAILY [facility] PRN Reason: Taper Stop: 07/21/17 09:59 Last Admin: 07/15/17 09:30 Dose: 30 mg Rosuvastatin Calcium (Crestor) 10 mg PO HS [facility] Last Admin: 07/14/17 21:39 Dose: 10 mg Fluticasone/Salmeterol (Advair Diskus 250/50) 1 puff INH RQ12 [facility] Last Admin: 07/15/17 09:36 Dose: Not Given Tiotropium [place] (Spiriva) 18 mcg INH RQ24 [facility] Last Admin: 07/15/17 09:32 Dose: Not Given Vitamin B Complex/Vit C/Folic Acid (Nephro-Lc) 1 tab PO 0800 [facility] Last Admin: 07/15/17 09:30 Dose: 1 tab - Labs Labs: 07/14/17 07:05 07/14/17 07:05 PT 13.6 SECONDS (9.7-12.2) H 07/06/17 06:28 INR 1.2 07/06/17 06:28 APTT 33 SECONDS (21-34) D 07/06/17 06:28
--- NOTE | 2017-07-15 19:13 | PN ---
DATE: 07/15/2017 SUBJECTIVE: The patient was seen, is more alert and verbal, although his blood sugar level seems to be still elevated in the 300-400 range. According to the , the patient is drinking a lot of juice. The patient also is on prednisone, this can make his blood sugar go up. The patient seems to be noncompliant to his diet restriction even though he is diabetic. The patient has been taking Xanax 0.25 mg p.o. b.i.d. p.r.n., this seems to work with him over Ativan. PHYSICAL EXAMINATION VITAL SIGNS: Temperature is 97.5, pulse rate is 66, blood pressure 174/95, respirations 20, oxygen saturation is 100%. GENERAL: The patient is seen with his today, is more verbal, resting. The patient is still amenable to go for subacute rehab once medically cleared. The patient is aware his blood sugar is still elevated, I advised to watch his diet. The patient has been drinking a lot of juice in the hospital according to the , drinking a lot of apple juice and cranberry juice. SKIN: No diaphoresis. HEENT: No headache. No dizziness. NECK: Supple. RESPIRATORY: No dyspnea. CARDIOVASCULAR: No chest pain. GASTROINTESTINAL: He is eating very well. EXTREMITIES: Gait is steady. MUSCULOSKELETAL: Reviewed. NEUROLOGIC: Alert and oriented x3. GENITOURINARY: No dysuria. MENTAL STATUS EXAMINATION: Elderly male of [place] descend, oriented x3. Mood is calmer, affect is reactive, speech spontaneous. Thought process coherent. Thought content, no overt psychosis. No suicidal or homicidal ideations. Attention and memory seems to be fair. Insight and judgement is fair. Impulse control is fair. IMPRESSION: History of delirium, metabolic encephalopathy, multifactorial as well as history of delusion of morbid obesity. PLAN AND RECOMMENDATIONS: The patient is seen. Medications reviewed. The patient is awaiting medical clearance. The patient is to go for subacute rehab. His has made a choice that they wish to go to [facility] or to [facility] once medically cleared. Psych tran, he may continue to take Xanax 0.5 mg p.o. b.i.d. p.r.n. for anxiety. Continue treatment plan as outlined. Ren Kyle MD [facility] # [id number]
--- NOTE | 2017-07-15 23:47 | CP.PCM.PN ---
Subjective - Date & Time of Evaluation Date of Evaluation: 07/15/17 Time of Evaluation: 10:30 - Subjective Subjective: Patient seen and evaluated No cardiac complains Continue current management Medical mgt for CAD Physical Examination - Constitutional Appears: Non-toxic, No Acute Distress - Head Exam Head Exam: ATRAUMATIC, NORMAL INSPECTION, NORMOCEPHALIC - Eye Exam Eye Exam: EOMI, PERRL - ENT Exam ENT Exam: Mucous Membranes Moist - Neck Exam Neck Exam: Full ROM - Respiratory Exam Respiratory Exam: absent: Wheezes - Cardiovascular Exam Cardiovascular Exam: +S1, +S2 - GI/Abdominal Exam GI & Abdominal Exam: Soft, Normal Bowel Sounds - Extremities Exam Extremities Exam: Normal Capillary Refill, Pedal Edema (1+ pitting). absent: Tenderness - Psychiatric Exam Psychiatric exam: Flat Affect - Skin Skin Exam: Dry, Normal Color, Warm Objective - Vital Signs/Intake and Output Vital Signs (last 24 hours): Temp Pulse Resp BP Pulse Ox 97.9 F 78 20 177/98 H 95 07/15/17 16:00 07/15/17 16:00 07/15/17 16:00 07/15/17 18:15 07/15/17 16:00 Intake and Output: 07/15/17 07/16/17 18:59 06:59 Intake Total 600 Balance 600 - Medications Medications: Current Medications Acetaminophen (Tylenol 650mg/20.3ml Solution Ud) 650 mg PO Q6 PRN PRN Reason: Fever 100.6 and above Last Admin: 07/06/17 11:58 Dose: 650 mg Albuterol/Ipratropium (Duoneb 3 Mg/0.5 Mg (3 Ml) Ud) 3 ml INH RQ6 [facility] Last Admin: 07/15/17 21:17 Dose: 3 ml Alprazolam (Xanax) 0.25 mg PO BID PRN PRN Reason: Anxiety Stop: 07/19/17 00:01 Last Admin: 07/14/17 21:39 Dose: 0.25 mg Amlodipine Besylate (Norvasc) 10 mg PO DAILY [facility] Last Admin: 07/15/17 09:30 Dose: 10 mg Aspirin (Aspirin Chewable) 81 mg PO DAILY [facility] Last Admin: 07/15/17 09:29 Dose: 81 mg Clonidine HCl (Catapres) 0.1 mg PO QID [facility] Last Admin: 07/15/17 22:24 Dose: 0.1 mg Clopidogrel Bisulfate (Plavix) 75 mg PO DAILY [facility] Last Admin: 07/15/17 09:29 Dose: 75 mg Epoetin Pieter (Procrit) 10,000 unit SC TTS [facility] Last Admin: 07/11/17 10:50 Dose: 10,000 unit Famotidine (Pepcid) 20 mg PO DAILY [facility] Last Admin: 07/15/17 09:29 Dose: 20 mg Furosemide (Lasix) 40 mg IVP DAILY [facility] Last Admin: 07/15/17 09:31 Dose: 40 mg Glimepiride (Amaryl) 1 mg PO BIDAC [facility] Last Admin: 07/15/17 17:00 Dose: 1 mg Hydralazine HCl (Apresoline) 10 mg IVP Q6H [facility] Last Admin: 07/15/17 22:25 Dose: 10 mg Insulin Glargine (Lantus) 24 unit SC HS [facility] Last Admin: 07/15/17 22:25 Dose: 24 units Insulin Human Regular (Novolin R) 0 unit SC Q6H [facility] PRN Reason: Protocol Last Admin: 07/15/17 18:17 Dose: 6 unit Losartan Potassium (Cozaar) 50 mg PO BID [facility] Last Admin: 07/06/17 09:34 Dose: 50 mg Metoprolol Tartrate (Lopressor) 75 mg PO BID [facility] Last Admin: 07/15/17 18:15 Dose: 75 mg Prednisone (Prednisone Tab) 30 mg PO DAILY [facility] PRN Reason: Taper Stop: 07/21/17 09:59 Last Admin: 07/15/17 09:30 Dose: 30 mg Rosuvastatin Calcium (Crestor) 10 mg PO HS [facility] Last Admin: 07/15/17 22:25 Dose: 10 mg Fluticasone/Salmeterol (Advair Diskus 250/50) 1 puff INH RQ12 [facility] Last Admin: 07/15/17 21:17 Dose: 1 puff Tiotropium [place] (Spiriva) 18 mcg INH RQ24 [facility] Last Admin: 07/15/17 09:32 Dose: Not Given Vitamin B Complex/Vit C/Folic Acid (Nephro-Lc) 1 tab PO 0800 [facility] Last Admin: 07/15/17 09:30 Dose: 1 tab - Labs Labs: 07/14/17 07:05 07/14/17 07:05 PT 13.6 SECONDS (9.7-12.2) H 07/06/17 06:28 INR 1.2 07/06/17 06:28 APTT 33 SECONDS (21-34) D 07/06/17 06:28 Assessment and Plan - Assessment and Plan (Free Text) Assessment: Elevated Troponin Assessment and Plan: Mildly elevated but later trended down: It could have been due to ischemic changes but may also be due to CHF exacerbation as well No ST segment changes appreciated on EKG 07/06 Cont to monitor Status: Acute CHF exacerbation Assessment and Plan: S/P intubation due to resp distress on 07/05. Will likely be extubated soon. On IV Lasix 40 IV Q12 ECHO: EF 65%, mild calcified thickening of aortic valve. Refer to complete report Status: Acute Hypertension Assessment and Plan: On Metoprolol, Cozaar and Hydralazine Elevated overnight. Cont to monitor. Avoid IVF Status: Chronic History of coronary artery bypass graft Assessment and Plan: Crestor 10 mg PO HS On Metoprolol BID, ASA daily. Would like Neuro clearance before cardiac cath is performed. Patient would benefit from MRI/MRA to visualize cerebral vasculature. Status: Chronic History of diabetes mellitus Assessment and Plan: Accuchecks Sliding scale Hold Parameters in place A1c 6.8 Status: Chronic History of TIA (transient ischemic attack) Assessment and Plan: 07/[address]- Intracranial arterial calcifications; stable chronic infarcts noted. Refer to full report. Would benefit from MRI of brain. EEG reviewed by Neuro- Slow wave activity noted w/o paroxysmal activity or focal slowing Neuro on the case. See above. Cont to monitor Status: Acute Hypercholesterolemia Assessment and Plan: On Crestor Would benefit from diet and exercise modifications following current hospital course Status: Chronic Family history of cerebral aneurysm Assessment and Plan: Strong family history. Patient's counseled on the importance of imaging for children to rule out aneurysms. Head CT did not appear to show signs of aneurysmal disease. Neuro on case for AMS Status: Acute Prophylactic measure Assessment and Plan: SCDs contraindicated due to swelling Heparin SC Q12 Pepcid 20 mg IV daily Status: Acute
[2017-07-16] MEDS: (Novolin R) Insulin Human Regular 100 units/ml vial SC SCH ×4 (00:50→18:32)
[2017-07-16] MEDS: Albuterol-Ipratrop 3 mg / 0.5 (3 ml) UD INH SCH ×4 (01:30→20:16)
--- NOTE | 2017-07-16 05:18 | CON ---
FOLLOWUP RENAL CONSULTATION DATE: LOCATION: The patient is located in room 662, bed A. REQUESTED BY: Paola Adams MD. REASON FOR FOLLOWUP: Acute renal failure, chronic kidney disease, anemia, and for further evaluation. HISTORY OF PRESENT ILLNESS: Mr. Flowers is a 67-year-old obese, elderly [place] male with a past medical history significant for longstanding hypertension, diabetes, coronary artery disease, status CABG, multiple CVA, and intracranial aneurysm who was admitted initially with hypoglycemia after taking insulin and shortness of breath. The patient was admitted to ICU and subsequently his hospital course complicated by respiratory failure, requiring intubation. Now, the patient is feeling much better and not in acute distress. Denies any complaints. No chest pain. No palpitation. Awaiting for subacute rehab placement. No shortness of breath. PHYSICAL EXAMINATION: VITAL SIGNS: As follows; blood pressure this evening 161/90, pulse 72, respirations 20, temperature 97.9, and saturation 97%. Height 5 feet 6 inches and weight is 186 pounds. GENERAL: Mr. Flowers is a 67-year-old elderly male, obese, and not in distress. HEENT: Pupils normal reactive to light and accommodation. Conjunctivae pink. Sclerae anicteric. Tongue is moist. Trachea is midline. LUNGS: Symmetric on both sides. Bilateral breath sounds present. Clear on auscultation. CARDIOVASCULAR: [place] at the fifth intercostal space, midclavicular line. S1 and S2 audible. No murmur or gallop. ABDOMEN: Normal in appearance, soft, and tympanic. No guarding. No rigidity. No hepatosplenomegaly. CENTRAL NERVOUS SYSTEM: The patient is alert, awake, and oriented x2-3. Sensory and motor system is grossly within normal limits. EXTREMITIES: No cyanosis. No clubbing. No edema. CURRENT MEDICATIONS: Include as follows: Advair, Amaryl, hydralazine, aspirin, clonidine, Crestor, DuoNeb inhaler, ferrous gluconate, Lasix 40 mg IV daily, metoprolol 75 mg p.o. b.i.d., Nephro-Lc 1 tablet daily, Norvasc 10 mg daily, Pepcid 20 mg p.o, daily, Plavix 75 mg daily, prednisone mg p.o. daily, Procrit 10,000 units 3 times a week, Spiriva, and Xanax. LABORATORY DATA: No new labs are available for today. Accu-Chek, 377, 343, 418, and 416. As of 07/14/2017, H and H 10.2/32.4. As of 07/14/2017; BUN and creatinine 73/2.3. Serum immunofixation positive for IgG kappa monoclonal protein. ASSESSMENT AND PLAN: In summary again, Mr. Flowers is a 67-year-old elderly, obese [place] male with history of longstanding hypertension, diabetes, coronary artery disease, status post coronary artery bypass graft, cerebrovascular accident, intracranial aneurysm, was admitted with hypoglycemia, shortness of breath, status post acute respiratory failure, status post extubation, anemia, on IV iron and also Epogen. Urine protein electrophoresis positive and serum protein electrophoresis positive and serum immunofixation is positive for IgG kappa monoclonal protein. 1. Renal failure, acute on chronic kidney disease. Renal function is back to his baseline. 2. Anemia secondary to renal failure and also iron deficiency, rule out multiple myeloma. 3. Hypertension. 4. Diabetes. 5. Coronary artery disease, status post coronary artery bypass graft. 6. Intracranial aneurysm, now serum immunofixation is positive and rule out multiple myeloma, rule out monoclonal gammopathy for undetermined significance MGUS. Consider Hematology consult. May need a bone marrow biopsy. Repeat BMP in a.m. We will follow with you. Thank you for allowing me to participate in your patient's care. Suasna Jones MD MTDD
--- NOTE | 2017-07-16 08:21 | CP.PCM.PN ---
Subjective - Date & Time of Evaluation Date of Evaluation: 07/16/17 Time of Evaluation: 00:30 - Subjective Subjective: Patient seen , very much awake, conversant very vocal but with some disorientation,and some agitation at times, still on one on one not using oxygen, comfortable Laboratory reviewed SIF positive- discussed with hem- for evaluation Steroid tapered, Insulin adjusted- Sugar still high but getting better no fever no unusual eventr Objective - Vital Signs/Intake and Output Vital Signs (last 24 hours): Temp Pulse Resp BP Pulse Ox 98 F 69 20 163/85 H 96 07/15/17 23:05 07/16/17 06:15 07/15/17 23:05 07/16/17 06:15 07/15/17 23:05 Intake and Output: 07/16/17 07/16/17 06:59 18:59 Intake Total 600 Balance 600 - Medications Medications: Current Medications Acetaminophen (Tylenol 650mg/20.3ml Solution Ud) 650 mg PO Q6 PRN PRN Reason: Fever 100.6 and above Last Admin: 07/06/17 11:58 Dose: 650 mg Albuterol/Ipratropium (Duoneb 3 Mg/0.5 Mg (3 Ml) Ud) 3 ml INH RQ6 [facility] Last Admin: 07/16/17 07:22 Dose: 3 ml Alprazolam (Xanax) 0.25 mg PO BID PRN PRN Reason: Anxiety Stop: 07/19/17 00:01 Last Admin: 07/14/17 21:39 Dose: 0.25 mg Amlodipine Besylate (Norvasc) 10 mg PO DAILY [facility] Last Admin: 07/15/17 09:30 Dose: 10 mg Aspirin (Aspirin Chewable) 81 mg PO DAILY [facility] Last Admin: 07/15/17 09:29 Dose: 81 mg Clonidine HCl (Catapres) 0.1 mg PO QID [facility] Last Admin: 07/15/17 22:24 Dose: 0.1 mg Clopidogrel Bisulfate (Plavix) 75 mg PO DAILY [facility] Last Admin: 07/15/17 09:29 Dose: 75 mg Epoetin Pieter (Procrit) 10,000 unit SC TTS [facility] Last Admin: 07/11/17 10:50 Dose: 10,000 unit Famotidine (Pepcid) 20 mg PO DAILY [facility] Last Admin: 10/25/17 09:29 Dose: 20 mg Furosemide (Lasix) 40 mg IVP DAILY [facility] Last Admin: 07/15/17 09:31 Dose: 40 mg Glimepiride (Amaryl) 1 mg PO BIDAC [facility] Last Admin: 07/15/17 17:00 Dose: 1 mg Hydralazine HCl (Apresoline) 10 mg IVP Q6H [facility] Last Admin: 07/16/17 06:17 Dose: 10 mg Insulin Glargine (Lantus) 24 unit SC HS [facility] Last Admin: 07/15/17 22:25 Dose: 24 units Insulin Human Regular (Novolin R) 0 unit SC Q6H [facility] PRN Reason: Protocol Last Admin: 07/16/17 06:20 Dose: 2 unit Losartan Potassium (Cozaar) 50 mg PO BID [facility] Last Admin: 07/06/17 09:34 Dose: 50 mg Metoprolol Tartrate (Lopressor) 75 mg PO BID [facility] Last Admin: 07/15/17 18:15 Dose: 75 mg Prednisone (Prednisone Tab) 20 mg PO DAILY [facility] Stop: 07/16/17 23:59 Prednisone (Prednisone Tab) 10 mg PO DAILY [facility] Stop: 07/17/17 23:59 Rosuvastatin Calcium (Crestor) 10 mg PO HS [facility] Last Admin: 07/15/17 22:25 Dose: 10 mg Fluticasone/Salmeterol (Advair Diskus 250/50) 1 puff INH RQ12 [facility] Last Admin: 07/15/17 21:17 Dose: 1 puff Tiotropium [place] (Spiriva) 18 mcg INH RQ24 [facility] Last Admin: 07/15/17 09:32 Dose: Not Given Vitamin B Complex/Vit C/Folic Acid (Nephro-Lc) 1 tab PO 0800 [facility] Last Admin: 07/15/17 09:30 Dose: 1 tab - Labs Labs: 07/14/17 07:05 07/14/17 07:05 PT 13.6 SECONDS (9.7-12.2) H 07/06/17 06:28 INR 1.2 07/06/17 06:28 APTT 33 SECONDS (21-34) D 07/06/17 06:28 - Constitutional Appears: Non-toxic, No Acute Distress (disoriented at toimes agitated at times) - Head Exam Head Exam: ATRAUMATIC, NORMOCEPHALIC - Eye Exam Eye Exam: Normal appearance. absent: Nystagmus - ENT Exam ENT Exam: Mucous Membranes Moist - Respiratory Exam Respiratory Exam: Clear to Ausculation Bilateral, NORMAL BREATHING PATTERN - Cardiovascular Exam Cardiovascular Exam: REGULAR RHYTHM - GI/Abdominal Exam GI & Abdominal Exam: Soft, Normal Bowel Sounds. absent: Tenderness - Extremities Exam Extremities Exam: Full ROM, Normal Capillary Refill, Normal Inspection. absent : Pedal Edema - Neurological Exam Neurological Exam: Alert, Awake, Normal Gait, Oriented x3 - Psychiatric Exam Psychiatric exam: Agitated (at times), Normal Affect, Normal Mood - Skin Skin Exam: Intact, Normal Color Assessment and Plan - Assessment and Plan (Free Text) Assessment: Post respiratory failure- improved COPD tapering steroid- improving IDDM2 Post hypoglycemia now on the High side- adjusting insulin dosages, TLC Anemia-improving positive SIF- discussed with heme- further evaluation- discussed with Hypertension - stable monoitoring Cerebral aneurysm- stable- follow up in [place] CAD post CABG years ago- no further cardiac procedure due to aneurysm adjust medication accordingly
[2017-07-16] MEDS: Multivitamin Vitamin B Complex (Nephro-Vite) Tab PO SCH (08:29)
--- NOTE | 2017-07-16 08:45 | CP.PCM.PN ---
<Augusta Madison - Last Filed: 07/16/17 12:09> Subjective - Date & Time of Evaluation Date of Evaluation: 07/16/17 Time of Evaluation: 09:00 - Subjective Subjective: Pulmonology Note for Dr. Alves's Service Patient was seen and examined at bedside. He reports he feels well. No more episodes of VTACH. Denied fever, chills, headache, chest pain, SOB, cough abdominal pain, n/v/d/c, or urinary symptoms. Objective - Vital Signs/Intake and Output Vital Signs (last 24 hours): Temp Pulse Resp BP Pulse Ox 98 F 69 20 163/85 H 96 07/15/17 23:05 07/16/17 06:15 07/15/17 23:05 07/16/17 06:15 07/15/17 23:05 Intake and Output: 07/16/17 07/16/17 06:59 18:59 Intake Total 600 Balance 600 - Medications Medications: Current Medications Acetaminophen (Tylenol 650mg/20.3ml Solution Ud) 650 mg PO Q6 PRN PRN Reason: Fever 100.6 and above Last Admin: 07/06/17 11:58 Dose: 650 mg Albuterol/Ipratropium (Duoneb 3 Mg/0.5 Mg (3 Ml) Ud) 3 ml INH RQ6 [facility] Last Admin: 07/16/17 07:22 Dose: 3 ml Alprazolam (Xanax) 0.25 mg PO BID PRN PRN Reason: Anxiety Stop: 07/19/17 00:01 Last Admin: 07/14/17 21:39 Dose: 0.25 mg Amlodipine Besylate (Norvasc) 10 mg PO DAILY [facility] Last Admin: 07/15/17 09:30 Dose: 10 mg Aspirin (Aspirin Chewable) 81 mg PO DAILY [facility] Last Admin: 07/15/17 09:29 Dose: 81 mg Clonidine HCl (Catapres) 0.1 mg PO QID [facility] Last Admin: 07/15/17 22:24 Dose: 0.1 mg Clopidogrel Bisulfate (Plavix) 75 mg PO DAILY [facility] Last Admin: 07/15/17 09:29 Dose: 75 mg Epoetin Pieter (Procrit) 10,000 unit SC TTS [facility] Last Admin: 07/11/17 10:50 Dose: 10,000 unit Famotidine (Pepcid) 20 mg PO DAILY [facility] Last Admin: 07/15/17 09:29 Dose: 20 mg Furosemide (Lasix) 40 mg IVP DAILY [facility] Last Admin: 07/15/17 09:31 Dose: 40 mg Glimepiride (Amaryl) 1 mg PO BIDAC [facility] Last Admin: 07/16/17 08:29 Dose: 1 mg Hydralazine HCl (Apresoline) 10 mg IVP Q6H [facility] Last Admin: 07/16/17 06:17 Dose: 10 mg Insulin Glargine (Lantus) 24 unit SC HS [facility] Last Admin: 07/15/17 22:25 Dose: 24 units Insulin Human Regular (Novolin R) 0 unit SC Q6H [facility] PRN Reason: Protocol Last Admin: 07/16/17 06:20 Dose: 2 unit Losartan Potassium (Cozaar) 50 mg PO BID [facility] Last Admin: 07/06/17 09:34 Dose: 50 mg Metoprolol Tartrate (Lopressor) 75 mg PO BID [facility] Last Admin: 07/15/17 18:15 Dose: 75 mg Prednisone (Prednisone Tab) 20 mg PO DAILY [facility] Stop: 07/16/17 23:59 Prednisone (Prednisone Tab) 10 mg PO DAILY [facility] Stop: 07/17/17 23:59 Rosuvastatin Calcium (Crestor) 10 mg PO HS [facility] Last Admin: 07/15/17 22:25 Dose: 10 mg Fluticasone/Salmeterol (Advair Diskus 250/50) 1 puff INH RQ12 [facility] Last Admin: 07/15/17 21:17 Dose: 1 puff Tiotropium [place] (Spiriva) 18 mcg INH RQ24 [facility] Last Admin: 07/15/17 09:32 Dose: Not Given Vitamin B Complex/Vit C/Folic Acid (Nephro-Lc) 1 tab PO 0800 [facility] Last Admin: 07/16/17 08:29 Dose: 1 tab - Labs Labs: 07/14/17 07:05 07/14/17 07:05 PT 13.6 SECONDS (9.7-12.2) H 07/06/17 06:28 INR 1.2 07/06/17 06:28 APTT 33 SECONDS (21-34) D 07/06/17 06:28 - Additional Findings Additional findings: - Constitutional Appears: No Acute Distress - Head Exam Head Exam: NORMAL INSPECTION, NORMOCEPHALIC - Eye Exam Eye Exam: EOMI, Normal appearance, PERRL Pupil Exam: NORMAL ACCOMODATION - ENT Exam ENT Exam: Mucous Membranes Moist, Normal Exam, Normal Oropharynx. absent: Mucous Membranes Dry - Neck Exam Neck Exam: Normal Inspection. absent: Lymphadenopathy, Thyromegaly - Respiratory Exam Respiratory Exam: Clear to Ausculation Bilateral, NORMAL BREATHING PATTERN. absent: Rales, Rhonchi, Wheezes - Cardiovascular Exam Cardiovascular Exam: REGULAR RHYTHM, RRR, +S1, +S2 - GI/Abdominal Exam GI & Abdominal Exam: Soft, Normal Bowel Sounds. absent: Distended, Tenderness - Extremities Exam Extremities Exam: Normal Inspection. absent: Pedal Edema, Tenderness - Neurological Exam Neurological Exam: Alert, Awake, Oriented x3 - Psychiatric Exam Psychiatric exam: Normal Affect, Normal Mood - Skin Skin Exam: Dry, Intact, Normal Color, Warm Assessment and Plan - Assessment and Plan (Free Text) Plan: Hypercapnic respiratory failure, chronic On admission patient was hypoglycemic, hypercapnic and hypotensive. Chest x-ray showed pulmonary edema. Patient was placed on BiPAP, repeat ABG improving hypercapnia. Continue current management - recommend outpatient sleep study BiPAP PRN Duonebs Q6H Lasix 40mg IVP daily Prednisone 40mg PO daily --> Continue with taper as per primary Spiriva 18mcg INH QD Advair 250/50 Q12H Episodes of [address] Dr[address] Butler on consult Recommend EP consult - Dr. Wisdom - help appreciated Not a candidate for cath due to Cerebral Aneurysm and Acute on Chronic CKD Increase Lopressor to 75 mg po bid Hx of HTN Current management as per primary team Hx of CHF ECHO 07/02/17: EF 65%, mild calcified thickening of aortic valve. Refer to complete report Acute on Chronic CKD Hx Obstructive sleep apnea/obesity hypoventilation syndrome History of TIA (transient ischemic attack) Family history of cerebral aneurysm AMS 07/[address]- Intracranial arterial calcifications; stable chronic infarcts noted. Refer to full report. Would benefit from MRI of brain. Head CT did not appear to show signs of aneurysmal disease. EEG reviewed by Neuro- Slow wave activity noted w/o paroxysmal activity or focal slowing Neuro on case for AMS -brain MRI and head MRA ordered, noted to have a Cerebral Aneurysm Cont to monitor DW Gricelda Barahona DO, PGY-1 <Atul Alves - Last Filed: 07/16/17 15:13> Subjective - Date & Time of Evaluation Time of Evaluation: 10:00 Objective - Vital Signs/Intake and Output Vital Signs (last 24 hours): Temp Pulse Resp BP Pulse Ox 97.7 F 73 20 155/87 H 95 07/16/17 08:00 07/16/17 08:00 07/16/17 08:00 07/16/17 10:05 07/16/17 08:00 Intake and Output: 07/16/17 07/16/17 06:59 18:59 Intake Total 600 Balance 600 - Medications Medications: Current Medications Acetaminophen (Tylenol 650mg/20.3ml Solution Ud) 650 mg PO Q6 PRN PRN Reason: Fever 100.6 and above Last Admin: 07/06/17 11:58 Dose: 650 mg Albuterol/Ipratropium (Duoneb 3 Mg/0.5 Mg (3 Ml) Ud) 3 ml INH RQ6 [facility] Last Admin: 07/16/17 13:27 Dose: Not Given Alprazolam (Xanax) 0.25 mg PO BID PRN PRN Reason: Anxiety Stop: 07/19/17 00:01 Last Admin: 07/14/17 21:39 Dose: 0.25 mg Amlodipine Besylate (Norvasc) 10 mg PO DAILY [facility] Last Admin: 07/16/17 10:04 Dose: 10 mg Aspirin (Aspirin Chewable) 81 mg PO DAILY [facility] Last Admin: 07/16/17 10:04 Dose: 81 mg Clonidine HCl (Catapres) 0.1 mg PO QID [facility] Last Admin: 07/16/17 14:25 Dose: 0.1 mg Clopidogrel Bisulfate (Plavix) 75 mg PO DAILY [facility] Last Admin: 07/16/17 10:04 Dose: 75 mg Epoetin Pieter (Procrit) 10,000 unit SC TTS [facility] Last Admin: 07/16/17 12:46 Dose: 10,000 unit Famotidine (Pepcid) 20 mg PO DAILY [facility] Last Admin: 07/16/17 10:04 Dose: 20 mg Furosemide (Lasix) 40 mg IVP DAILY [facility] Last Admin: 07/16/17 10:05 Dose: 40 mg Glimepiride (Amaryl) 1 mg PO BIDAC [facility] Last Admin: 07/16/17 08:29 Dose: 1 mg Hydralazine HCl (Apresoline) 10 mg IVP Q6H [facility] Last Admin: 07/16/17 10:05 Dose: 10 mg Insulin Glargine (Lantus) 26 unit SC HS [facility] Insulin Human Regular (Novolin R) 0 unit SC Q6H [facility] PRN Reason: Protocol Last Admin: 07/16/17 12:24 Dose: 2 unit Losartan Potassium (Cozaar) 50 mg PO BID [facility] Last Admin: 07/06/17 09:34 Dose: 50 mg Metoprolol Tartrate (Lopressor) 75 mg PO BID [facility] Last Admin: 07/16/17 10:04 Dose: 75 mg Prednisone (Prednisone Tab) 20 mg PO DAILY [facility] Stop: 07/16/17 23:59 Last Admin: 07/16/17 10:05 Dose: 20 mg Prednisone (Prednisone Tab) 10 mg PO DAILY [facility] Stop: 07/17/17 23:59 Rosuvastatin Calcium (Crestor) 10 mg PO HS [facility] Last Admin: 07/15/17 22:25 Dose: 10 mg Fluticasone/Salmeterol (Advair Diskus 250/50) 1 puff INH RQ12 [facility] Last Admin: 07/16/17 09:55 Dose: Not Given Tiotropium [place] (Spiriva) 18 mcg INH RQ24 [facility] Last Admin: 07/16/17 09:55 Dose: Not Given Vitamin B Complex/Vit C/Folic Acid (Nephro-Lc) 1 tab PO 0800 [facility] Last Admin: 07/16/17 08:29 Dose: 1 tab - Labs Labs: 07/14/17 07:05 07/14/17 07:05 PT 13.6 SECONDS (9.7-12.2) H 07/06/17 06:28 INR 1.2 07/06/17 06:28 APTT 33 SECONDS (21-34) D 07/06/17 06:28 Assessment and Plan (1) Hypercapnic respiratory failure, chronic Status: Acute (2) Elevated troponin Status: Acute (3) Pulmonary edema Status: Acute (4) Hypoglycemia Status: Acute Attending/Attestation - Attestation I have personally seen and examined this patient.: Yes I have fully participated in the care of the patient.: Yes I have reviewed all pertinent clinical information, including history, physical exam and plan: Yes Notes (Text): 07/16/17 15:13 The patient seen and examined. Lying comfortably in no acute distress On BiPAP at night Taper steroids Continue nebulizer treatment Sleep study as outpatient
[2017-07-16] MEDS: Fluticasone-Salmeterol 250-50mcg Diskus INH SCH ×2 (09:55→20:16)
[2017-07-16] MEDS: Tiotropium 18 mcg Cap For Inhalation INH SCH (09:55)
[2017-07-16] MEDS: EPOETIN ALFA 10,000 UNIT/ML ML SC SCH (12:46)
[2017-07-16] MEDS ORDERED: (Lantus) Insulin Glargine, Recombinant SC SCH ×2 (15:03→22:42)
--- NOTE | 2017-07-16 18:05 | CP.PCM.PN ---
Subjective - Date & Time of Evaluation Date of Evaluation: 07/16/17 Time of Evaluation: 18:04 - Subjective Subjective: pt is seen and examined, follow up consult is dictated #[id number] r/o myeloma hematology consult with Bharati huerta Objective - Vital Signs/Intake and Output Vital Signs (last 24 hours): Temp Pulse Resp BP Pulse Ox 98.2 F 70 20 157/84 H 97 07/16/17 15:13 07/16/17 15:13 07/16/17 15:13 07/16/17 15:13 07/16/17 15:13 Intake and Output: 07/16/17 07/16/17 06:59 18:59 Intake Total 600 Balance 600 - Medications Medications: Current Medications Acetaminophen (Tylenol 650mg/20.3ml Solution Ud) 650 mg PO Q6 PRN PRN Reason: Fever 100.6 and above Last Admin: 07/06/17 11:58 Dose: 650 mg Albuterol/Ipratropium (Duoneb 3 Mg/0.5 Mg (3 Ml) Ud) 3 ml INH RQ6 [facility] Last Admin: 07/16/17 13:27 Dose: Not Given Alprazolam (Xanax) 0.25 mg PO BID PRN PRN Reason: Anxiety Stop: 07/19/17 00:01 Last Admin: 07/14/17 21:39 Dose: 0.25 mg Amlodipine Besylate (Norvasc) 10 mg PO DAILY [facility] Last Admin: 07/16/17 10:04 Dose: 10 mg Aspirin (Aspirin Chewable) 81 mg PO DAILY [facility] Last Admin: 07/16/17 10:04 Dose: 81 mg Clonidine HCl (Catapres) 0.1 mg PO QID [facility] Last Admin: 07/16/17 14:25 Dose: 0.1 mg Clopidogrel Bisulfate (Plavix) 75 mg PO DAILY [facility] Last Admin: 07/16/17 10:04 Dose: 75 mg Epoetin Pieter (Procrit) 10,000 unit SC TTS [facility] Last Admin: 07/16/17 12:46 Dose: 10,000 unit Famotidine (Pepcid) 20 mg PO DAILY [facility] Last Admin: 07/16/17 10:04 Dose: 20 mg Furosemide (Lasix) 40 mg IVP DAILY [facility] Last Admin: 07/16/17 10:05 Dose: 40 mg Glimepiride (Amaryl) 1 mg PO BIDAC [facility] Last Admin: 07/16/17 08:29 Dose: 1 mg Hydralazine HCl (Apresoline) 10 mg IVP Q6H [facility] Last Admin: 07/16/17 10:05 Dose: 10 mg Insulin Glargine (Lantus) 26 unit SC HS [facility] Insulin Human Regular (Novolin R) 0 unit SC Q6H [facility] PRN Reason: Protocol Last Admin: 07/16/17 12:24 Dose: 2 unit Losartan Potassium (Cozaar) 50 mg PO BID [facility] Last Admin: 07/06/17 09:34 Dose: 50 mg Metoprolol Tartrate (Lopressor) 75 mg PO BID [facility] Last Admin: 07/16/17 10:04 Dose: 75 mg Prednisone (Prednisone Tab) 20 mg PO DAILY [facility] Stop: 07/16/17 23:59 Last Admin: 07/16/17 10:05 Dose: 20 mg Prednisone (Prednisone Tab) 10 mg PO DAILY [facility] Stop: 07/17/17 23:59 Rosuvastatin Calcium (Crestor) 10 mg PO HS [facility] Last Admin: 07/15/17 22:25 Dose: 10 mg Fluticasone/Salmeterol (Advair Diskus 250/50) 1 puff INH RQ12 [facility] Last Admin: 07/16/17 09:55 Dose: Not Given Tiotropium [place] (Spiriva) 18 mcg INH RQ24 [facility] Last Admin: 07/16/17 09:55 Dose: Not Given Vitamin B Complex/Vit C/Folic Acid (Nephro-Lc) 1 tab PO 0800 [facility] Last Admin: 07/16/17 08:29 Dose: 1 tab - Labs Labs: 07/14/17 07:05 07/14/17 07:05 PT 13.6 SECONDS (9.7-12.2) H 07/06/17 06:28 INR 1.2 07/06/17 06:28 APTT 33 SECONDS (21-34) D 07/06/17 06:28
--- NOTE | 2017-07-16 19:15 | CP.PCM.CON ---
History of Present Illness - History of Present Illness History of Present Illness: 67 yo man admitted with hypoglycemia, found to have SOB, intubated in the ICU, currently extubated, found by renal to have a monoclonal protein, possibly IgG kappa, heme called for further work up. Patient lying in bed, comfortable, still weak, but with better appetite Past Patient History - Infectious Disease Hx of Infectious Diseases: None - Past Medical History & Family History Past Medical History?: Yes - Past Social History Smoking Status: Never Smoked - CARDIAC Hx Cardiac Disorders: Yes (CAD) Hx Congestive Heart Failure: Yes Hx Hypertension: Yes - PULMONARY Hx Respiratory Disorders: No - NEUROLOGICAL HX Cerebrovascular Accident: Yes (5 YEARS BACK) - HEENT Hx HEENT Problems: No - RENAL Hx Chronic Kidney Disease: Yes Other/Comment: CRI - ENDOCRINE/METABOLIC Hx Diabetes Mellitus Type 2: Yes - HEMATOLOGICAL/ONCOLOGICAL Hx Blood Disorders: No - INTEGUMENTARY Hx Dermatological Problems: No - MUSCULOSKELETAL/RHEUMATOLOGICAL Hx Musculoskeletal Disorders: No Hx Falls: Yes - GASTROINTESTINAL Hx Gastrointestinal Disorders: No - GENITOURINARY/GYNECOLOGICAL Hx Genitourinary Disorders: No - PSYCHIATRIC Hx Substance Use: No - SURGICAL HISTORY Other/Comment: triple by pass 2006 - ANESTHESIA Hx Anesthesia: Yes Meds Allergies/Adverse Reactions: Allergies Allergy/AdvReac Type Severity Reaction Status Date / Time No Known Allergies Allergy Verified 07/02/17 14:39 - Medications Medications: Current Medications Acetaminophen (Tylenol 650mg/20.3ml Solution Ud) 650 mg PO Q6 PRN PRN Reason: Fever 100.6 and above Last Admin: 07/06/17 11:58 Dose: 650 mg Albuterol/Ipratropium (Duoneb 3 Mg/0.5 Mg (3 Ml) Ud) 3 ml INH RQ6 [facility] Last Admin: 07/16/17 13:27 Dose: Not Given Alprazolam (Xanax) 0.25 mg PO BID PRN PRN Reason: Anxiety Stop: 07/19/17 00:01 Last Admin: 07/14/17 21:39 Dose: 0.25 mg Amlodipine Besylate (Norvasc) 10 mg PO DAILY [facility] Last Admin: 07/16/17 10:04 Dose: 10 mg Aspirin (Aspirin Chewable) 81 mg PO DAILY [facility] Last Admin: 07/16/17 10:04 Dose: 81 mg Clonidine HCl (Catapres) 0.1 mg PO QID [facility] Last Admin: 07/16/17 18:30 Dose: 0.1 mg Clopidogrel Bisulfate (Plavix) 75 mg PO DAILY [facility] Last Admin: 07/16/17 10:04 Dose: 75 mg Epoetin Pieter (Procrit) 10,000 unit SC TTS [facility] Last Admin: 07/16/17 12:46 Dose: 10,000 unit Famotidine (Pepcid) 20 mg PO DAILY [facility] Last Admin: 07/16/17 10:04 Dose: 20 mg Furosemide (Lasix) 40 mg IVP DAILY [facility] Last Admin: 07/16/17 10:05 Dose: 40 mg Glimepiride (Amaryl) 1 mg PO BIDAC [facility] Last Admin: 07/16/17 18:30 Dose: 1 mg Hydralazine HCl (Apresoline) 10 mg IVP Q6H [facility] Last Admin: 07/16/17 17:30 Dose: 10 mg Insulin Glargine (Lantus) 26 unit SC [facility] Insulin Human Regular (Novolin R) 0 unit SC Q6H [facility] PRN Reason: Protocol Last Admin: 07/16/17 18:32 Dose: 4 unit Losartan Potassium (Cozaar) 50 mg PO BID [facility] Last Admin: 07/06/17 09:34 Dose: 50 mg Metoprolol Tartrate (Lopressor) 75 mg PO BID [facility] Last Admin: 07/16/17 18:31 Dose: 75 mg Prednisone (Prednisone Tab) 20 mg PO DAILY [facility] Stop: 07/16/17 23:59 Last Admin: 07/16/17 10:05 Dose: 20 mg Prednisone (Prednisone Tab) 10 mg PO DAILY [facility] Stop: 07/17/17 23:59 Rosuvastatin Calcium (Crestor) 10 mg PO HS [facility] Last Admin: 07/15/17 22:25 Dose: 10 mg Fluticasone/Salmeterol (Advair Diskus 250/50) 1 puff INH RQ12 [facility] Last Admin: 07/16/17 09:55 Dose: Not Given Tiotropium [place] (Spiriva) 18 mcg INH RQ24 [facility] Last Admin: 07/16/17 09:55 Dose: Not Given Vitamin B Complex/Vit C/Folic Acid (Nephro-Lc) 1 tab PO 0800 [facility] Last Admin: 07/16/17 08:29 Dose: 1 tab Results - Vital Signs Recent Vital Signs: Last Vital Signs Temp 98.2 F 07/16/17 15:13 Pulse 70 07/16/17 15:13 Resp 20 07/16/17 15:13 BP 157/84 H 07/16/17 18:31 Pulse Ox 97 07/16/17 15:13 - Labs Result Diagrams: 07/14/17 07:05 07/14/17 07:05 Labs: Laboratory Results - last 24 hr 07/13/17 07/15/17 07/16/17 21:36 21:36 00:45 POC Glucose (mg/dL) 416 H* 353 H Urine Immunofixation Detected H 07/16/17 07/16/17 07/16/17 05:12 11:19 16:32 POC Glucose (mg/dL) 213 H 236 H 317 H Urine Immunofixation Assessment & Plan (1) Monoclonal gammopathy Assessment and Plan: 67 yo man with paraprotein in blood and urine with anemia and renal failure, will order Mspike, immunoglobulin measurements, free light chain measurement. Depending on the results may need PET scan and bone marrow biopsy Status: Acute
--- NOTE | 2017-07-16 23:35 | CP.PCM.PN ---
Subjective - Date & Time of Evaluation Date of Evaluation: 07/16/17 Time of Evaluation: 20:40 - Subjective Subjective: patient seen and evaluated Hemodynamically stable No further cardiac work up at this time Medical management Physical Examination - Constitutional Appears: Non-toxic, No Acute Distress - Head Exam Head Exam: ATRAUMATIC, NORMAL INSPECTION, NORMOCEPHALIC - Eye Exam Eye Exam: EOMI, PERRL - ENT Exam ENT Exam: Mucous Membranes Moist - Neck Exam Neck Exam: Full ROM - Respiratory Exam Respiratory Exam: absent: Wheezes - Cardiovascular Exam Cardiovascular Exam: +S1, +S2 - GI/Abdominal Exam GI & Abdominal Exam: Soft, Normal Bowel Sounds - Extremities Exam Extremities Exam: Normal Capillary Refill, Pedal Edema (1+ pitting). absent: Tenderness - Psychiatric Exam Psychiatric exam: Flat Affect - Skin Skin Exam: Dry, Normal Color, Warm Objective - Vital Signs/Intake and Output Vital Signs (last 24 hours): Temp Pulse Resp BP Pulse Ox 98.2 F 70 20 157/84 H 97 07/16/17 15:13 07/16/17 15:13 07/16/17 15:13 07/16/17 18:31 07/16/17 15:13 - Medications Medications: Current Medications Acetaminophen (Tylenol 650mg/20.3ml Solution Ud) 650 mg PO Q6 PRN PRN Reason: Fever 100.6 and above Last Admin: 07/06/17 11:58 Dose: 650 mg Albuterol/Ipratropium (Duoneb 3 Mg/0.5 Mg (3 Ml) Ud) 3 ml INH RQ6 [facility] Last Admin: 07/16/17 20:16 Dose: Not Given Alprazolam (Xanax) 0.25 mg PO BID PRN PRN Reason: Anxiety Stop: 07/19/17 00:01 Last Admin: 07/14/17 21:39 Dose: 0.25 mg Amlodipine Besylate (Norvasc) 10 mg PO DAILY [facility] Last Admin: 07/16/17 10:04 Dose: 10 mg Aspirin (Aspirin Chewable) 81 mg PO DAILY [facility] Last Admin: 07/16/17 10:04 Dose: 81 mg Clonidine HCl (Catapres) 0.1 mg PO QID [facility] Last Admin: 07/16/17 22:36 Dose: 0.1 mg Clopidogrel Bisulfate (Plavix) 75 mg PO DAILY [facility] Last Admin: 07/16/17 10:04 Dose: 75 mg Epoetin [place]eter (Procrit) 10,000 unit SC TTS [facility] Last Admin: 07/16/17 12:46 Dose: 10,000 unit Famotidine (Pepcid) 20 mg PO DAILY [facility] Last Admin: 07/16/17 10:04 Dose: 20 mg Furosemide (Lasix) 40 mg IVP DAILY [facility] Last Admin: 07/16/17 10:05 Dose: 40 mg Glimepiride (Amaryl) 1 mg PO BIDAC [facility] Last Admin: 07/16/17 18:30 Dose: 1 mg Hydralazine HCl (Apresoline) 10 mg IVP Q6H [facility] Last Admin: 07/16/17 22:37 Dose: 10 mg Insulin Glargine (Lantus) 28 unit SC HS [facility] Insulin Human Regular (Novolin R) 0 unit SC Q6H [facility] PRN Reason: Protocol Last Admin: 07/16/17 18:32 Dose: 4 unit Losartan Potassium (Cozaar) 50 mg PO BID [facility] Last Admin: 07/06/17 09:34 Dose: 50 mg Metoprolol Tartrate (Lopressor) 75 mg PO BID [facility] Last Admin: 07/16/17 18:31 Dose: 75 mg Prednisone (Prednisone Tab) 20 mg PO DAILY [facility] Stop: 07/16/17 23:59 Last Admin: 07/16/17 10:05 Dose: 20 mg Prednisone (Prednisone Tab) 10 mg PO DAILY [facility] Stop: 07/17/17 23:59 Rosuvastatin Calcium (Crestor) 10 mg PO HS [facility] Last Admin: 07/16/17 22:35 Dose: 10 mg Fluticasone/Salmeterol (Advair Diskus 250/50) 1 puff INH RQ12 [facility] Last Admin: 07/16/17 20:16 Dose: Not Given Tiotropium [place] (Spiriva) 18 mcg INH RQ24 [facility] Last Admin: 07/16/17 09:55 Dose: Not Given Vitamin B Complex/Vit C/Folic Acid (Nephro-Lc) 1 tab PO 0800 [facility] Last Admin: 07/16/17 08:29 Dose: 1 tab - Labs Labs: 07/14/17 07:05 07/14/17 07:05 PT 13.6 SECONDS (9.7-12.2) H 07/06/17 06:28 INR 1.2 07/06/17 06:28 APTT 33 SECONDS (21-34) D 07/06/17 06:28 Assessment and Plan - Assessment and Plan (Free Text) Assessment: Elevated Troponin Assessment and Plan: Mildly elevated but later trended down: It could have been due to ischemic changes but may also be due to CHF exacerbation as well No ST segment changes appreciated on EKG 07/06 Cont to monitor Status: Acute CHF exacerbation Assessment and Plan: S/P intubation due to resp distress on 07/05. Will likely be extubated soon. On IV Lasix 40 IV Q12 ECHO: EF 65%, mild calcified thickening of aortic valve. Refer to complete report Status: Acute Hypertension Assessment and Plan: On Metoprolol, Cozaar and Hydralazine Elevated overnight. Cont to monitor. Avoid IVF Status: Chronic History of coronary artery bypass graft Assessment and Plan: Crestor 10 mg PO HS On Metoprolol BID, ASA daily. Would like Neuro clearance before cardiac cath is performed. Patient would benefit from MRI/MRA to visualize cerebral vasculature. Status: Chronic History of diabetes mellitus Assessment and Plan: Accuchecks Sliding scale Hold Parameters in place A1c 6.8 Status: Chronic History of TIA (transient ischemic attack) Assessment and Plan: 07/[address]- Intracranial arterial calcifications; stable chronic infarcts noted. Refer to full report. Would benefit from MRI of brain. EEG reviewed by Neuro- Slow wave activity noted w/o paroxysmal activity or focal slowing Neuro on the case. See above. Cont to monitor Status: Acute Hypercholesterolemia Assessment and Plan: On Crestor Would benefit from diet and exercise modifications following current hospital course Status: Chronic Family history of cerebral aneurysm Assessment and Plan: Strong family history. Patient's counseled on the importance of imaging for children to rule out aneurysms. Head CT did not appear to show signs of aneurysmal disease. Neuro on case for AMS Status: Acute Prophylactic measure Assessment and Plan: SCDs contraindicated due to swelling Heparin SC Q12 Pepcid 20 mg IV daily Status: Acute
[2017-07-17] MEDS: (Novolin R) Insulin Human Regular 100 units/ml vial SC SCH ×3 (00:15→12:34)
--- NOTE | 2017-07-17 00:24 | CP.PCM.PN ---
Subjective - Date & Time of Evaluation Date of Evaluation: 07/17/17 Time of Evaluation: 00:23 - Subjective Subjective: Patient was seen and examined at bedside. Patient denies chest pain, palpitations or difficulty breathing. Patient had 3 episodes of vtach on tele monitor. 1.)ordered EKG: old left bundle branch block 2.) will inform the day team and educator senior clinical 3.) Previous notes from Dr. Butler (cardiology) is aware of patient's history of vtach Objective - Vital Signs/Intake and Output Vital Signs (last 24 hours): Temp Pulse Resp BP Pulse Ox 98.2 F 70 20 157/84 H 97 07/16/17 15:13 07/16/17 15:13 07/16/17 15:13 07/16/17 18:31 07/16/17 15:13 - Medications Medications: Current Medications Acetaminophen (Tylenol 650mg/20.3ml Solution Ud) 650 mg PO Q6 PRN PRN Reason: Fever 100.6 and above Last Admin: 07/06/17 11:58 Dose: 650 mg Albuterol/Ipratropium (Duoneb 3 Mg/0.5 Mg (3 Ml) Ud) 3 ml INH RQ6 [facility] Last Admin: 07/16/17 20:16 Dose: Not Given Alprazolam (Xanax) 0.25 mg PO BID PRN PRN Reason: Anxiety Stop: 07/19/17 00:01 Last Admin: 07/14/17 21:39 Dose: 0.25 mg Amlodipine Besylate (Norvasc) 10 mg PO DAILY [facility] Last Admin: 07/16/17 10:04 Dose: 10 mg Aspirin (Aspirin Chewable) 81 mg PO DAILY [facility] Last Admin: 07/16/17 10:04 Dose: 81 mg Clonidine HCl (Catapres) 0.1 mg PO QID [facility] Last Admin: 07/16/17 22:36 Dose: 0.1 mg Clopidogrel Bisulfate (Plavix) 75 mg PO DAILY [facility] Last Admin: 07/16/17 10:04 Dose: 75 mg Epoetin Pieter (Procrit) 10,000 unit SC TTS [facility] Last Admin: 07/16/17 12:46 Dose: 10,000 unit Famotidine (Pepcid) 20 mg PO DAILY [facility] Last Admin: 07/16/17 10:04 Dose: 20 mg Furosemide (Lasix) 40 mg IVP DAILY [facility] Last Admin: 07/16/17 10:05 Dose: 40 mg Glimepiride (Amaryl) 1 mg PO BIDAC [facility] Last Admin: 07/16/17 18:30 Dose: 1 mg Hydralazine HCl (Apresoline) 10 mg IVP Q6H [facility] Last Admin: 07/16/17 22:37 Dose: 10 mg Insulin Glargine (Lantus) 28 unit SC HS [facility] Insulin Human Regular (Novolin R) 0 unit SC Q6H [facility] PRN Reason: Protocol Last Admin: 07/16/17 18:32 Dose: 4 unit Losartan Potassium (Cozaar) 50 mg PO BID [facility] Last Admin: 07/06/17 09:34 Dose: 50 mg Metoprolol Tartrate (Lopressor) 75 mg PO BID [facility] Last Admin: 07/16/17 18:31 Dose: 75 mg Prednisone (Prednisone Tab) 10 mg PO DAILY [facility] Stop: 07/17/17 23:59 Rosuvastatin Calcium (Crestor) 10 mg PO HS [facility] Last Admin: 07/16/17 22:35 Dose: 10 mg Fluticasone/Salmeterol (Advair Diskus 250/50) 1 puff INH RQ12 [facility] Last Admin: 07/16/17 20:16 Dose: Not Given Tiotropium [place] (Spiriva) 18 mcg INH RQ24 [facility] Last Admin: 07/16/17 09:55 Dose: Not Given Vitamin B Complex/Vit C/Folic Acid (Nephro-Lc) 1 tab PO 0800 [facility] Last Admin: 07/16/17 08:29 Dose: 1 tab - Labs Labs: 07/14/17 07:05 07/14/17 07:05 PT 13.6 SECONDS (9.7-12.2) H 07/06/17 06:28 INR 1.2 07/06/17 06:28 APTT 33 SECONDS (21-34) D 07/06/17 06:28 - Constitutional Appears: No Acute Distress - Head Exam Head Exam: ATRAUMATIC, NORMAL INSPECTION, NORMOCEPHALIC - Respiratory Exam Respiratory Exam: Clear to Ausculation Bilateral, NORMAL BREATHING PATTERN - Cardiovascular Exam Cardiovascular Exam: REGULAR RHYTHM, RRR, +S1, +S2. absent: Diastolic murmur, Irregular Rhythm
[2017-07-17] MEDS: Albuterol-Ipratrop 3 mg / 0.5 (3 ml) UD INH SCH ×3 (01:17→14:05)
--- NOTE | 2017-07-17 01:53 | PN ---
DATE: 07/16/2017 SUBJECTIVE: The patient seen. The patient is doing much better, seen with his , less anxious, but still not medically cleared. The patient according to the , he was referred to be seen by Dr. Patel because the patient has been ruled out for possible multiple myeloma. The patient was seen today by Dr. Patel. The patient is still hoping that will be going for subacute rehab. His seems to be more interested for the patient to go to [facility] for subacute rehab. The patient is undergoing workup for possible multiple myeloma. PHYSICAL EXAMINATION: VITAL SIGNS: Temperature is 98.2, pulse rate is 70, blood pressure 157/84, respirations 20, oxygen saturation is 97%. GENERAL: The patient is alert and oriented x3, resting comfortably, still close monitoring with his , offers no complaints other than he wants to leave the hospital. SKIN: No diaphoresis. HEENT: No headache. No dizziness. NECK: Supple. RESPIRATORY: No dyspnea. CARDIOVASCULAR: No chest pain. GASTROINTESTINAL: He is eating well. EXTREMITIES: Complaining of pain, but the patient has been bed bound. NEUROLOGIC: Alert and oriented x3. The patient is well related when seen. Confusion seems to be resolving. GENITOURINARY: No dysuria. MENTAL STATUS EXAMINATION: Elderly male of [place] descent, oriented x3. Seen in his room with his and the patient is alert, verbal. Mood is calmer, affect is reactive. Speech spontaneous. Thought process coherent. Thought content, no overt psychosis. The patient, however, still has chronic delusion that his is cheating on him, but seems to be much . He seems to be comfortable that the is always in the hospital. The patient also is amenable to go for subacute rehab. Attention and memory seems to be fair. Insight and judgement fair. Impulse control is fair. LABORATORY DATA: Review of his labs, his blood sugar is still elevated, but much better, last blood sugar is 317. 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 PLAN AND RECOMMENDATIONS: The patient seen. Medications reviewed. Continue Xanax p.r.n. as ordered. The patient has been seen by Dr. Patel for workup to rule out multiple myeloma. Continue treatment plan as outlined. The patient is awaiting medical clearance to go for subacute rehab. Ren Kyle MD
[2017-07-17 07:41] LABS: POTASSIUM 3.4 mmol/L (3.6-5.2)
[2017-07-17 07:45] LABS: CALCIUM 8.2 mg/dl (8.6-10.4)
[2017-07-17 07:53] LABS: HEMATOCRIT 33.3 % (35.0-51.0); MEAN CELL VOLUME 86.7 fL (80.0-94.0); MEAN CORPUSCULAR HEMOGLOBIN 27.7 pg (27.0-31.0); MEAN PLATELET VOLUME 8.6 fL (7.2-11.7); RED CELL DISTRIBUTION WIDTH 19.4 % (11.5-14.5); WHITE BLOOD COUNT 8.7 K/uL (4.8-10.8)
[2017-07-17] MEDS: Multivitamin Vitamin B Complex (Nephro-Vite) Tab PO SCH (08:48)
--- NOTE | 2017-07-17 09:10 | PN ---
DATE: FOLLOWUP RENAL CONSULTATION LOCATION: The patient is located in room 662, bed A. REQUESTED BY: Paola Adams MD. REASON FOR FOLLOWUP: Acute renal failure, chronic kidney disease, anemia, proteinuria, and for further evaluation. HISTORY OF PRESENT ILLNESS: Mr. Flowers is a 67-year-old elderly obese [place] male with a history of longstanding hypertension, diabetes, chronic kidney disease, COPD, CHF, coronary artery disease, status CABG, multiple CVA, and intracranial aneurysm, who was admitted with hypoglycemia after insulin overdose and shortness of breath. Subsequently, his hospital course was complicated by respiratory failure requiring intubation and status post extubation. The patient is feeling much better and not in acute distress. Denies any headache or dizziness. Denies any chest pain or palpitation. Denies any fever or cough. No abdominal pain. No nausea, vomiting or diarrhea. No edema of the legs. PHYSICAL EXAMINATION: VITAL SIGNS: As follows: Blood pressure 157/84, pulse 70, respirations 20, temperature 98.2, and saturation 97%, height 5 feet 6 inches, and weight is 186 pounds. GENERAL: Mr. Flowers is a 67-year-old elderly [place] male, well built, well nourished, not in distress. HEENT: Pupils normal reactive to light and accommodation. Conjunctivae pink. Sclerae anicteric. Tongue is moist. Trachea is midline. LUNGS: Symmetric on both sides. Bilateral breath sounds present. Clear on auscultation. CARDIOVASCULAR: [place] at the fifth intercostal space, midclavicular line. S1 and S2 audible. No murmur or gallop. The patient has a midsternal scar present. ABDOMEN: Soft and tympanic. No guarding. No rigidity. No hepatosplenomegaly. No abdominal bruits. CENTRAL NERVOUS SYSTEM: The patient is alert, awake, and oriented x3. Nonfocal on examination. Cranial nerves II-XII grossly intact. Sensory and motor system is within normal limits. EXTREMITIES: No cyanosis. No clubbing. No edema. CURRENT MEDICATIONS: Include Advair, glimepiride, hydralazine, aspirin, clonidine, Losartan, Crestor, DuoNeb inhaler, Lantus, Lasix, metoprolol, Nephro-Lc, amlodipine, Pepcid, Plavix, prednisone 10 mg daily from starting tomorrow and 20 mg p.o. daily today, Epogen 10,000 units 3 times a week, Spiriva, and Xanax. LABORATORY DATA: No new labs are available for today. His Accu-Chek are 213, 236, and 317. ASSESSMENT AND PLAN: In summary, Mr. Flowers is a 67-year-old elderly male with hypertension, diabetes, coronary artery disease, hyperlipidemia, status post coronary artery bypass graft, multiple cerebrovascular accidents, intracranial aneurysm, was admitted with hypoglycemia, respiratory failure, status post intubation and extubation with lower hemoglobin and hematocrit and proteinuria. Now urine protein electrophoresis positive for monoclonal spike and urine immunofixation and serum immunofixation is also positive for monoclonal spike, IgG kappa: 1. Acute renal failure, chronic kidney disease. Renal function is slowly improving. 2. Anemia secondary to renal failure and iron deficiency, rule out multiple myeloma. 3. Hypertension. Blood pressure is stable. Continue his current medications metoprolol, clonidine, hydralazine, and also amlodipine. 4. Followup with Hematology for possible bone marrow biopsy to rule out multiple myeloma. Repeat CBC and BMP in a.m. Case discussed with Dr. Bharati Patel in rounds this evening. We will follow with you. Thank you for allowing me to participate in your patient's care. Susana Jones MD
[2017-07-17] MEDS: Tiotropium 18 mcg Cap For Inhalation INH SCH (09:44)
[2017-07-17] MEDS: Fluticasone-Salmeterol 250-50mcg Diskus INH SCH (09:44)
--- NOTE | 2017-07-17 09:49 | CP.PCM.PN ---
Subjective - Date & Time of Evaluation Date of Evaluation: 07/17/17 Time of Evaluation: 09:45 - Subjective Subjective: Patient seen, conversant no complaints discussion with heme- can be followed as out patient along with cardio and neuro Monitoring sugar- on last days of prednisone, Insulin adjusted Objective - Vital Signs/Intake and Output Vital Signs (last 24 hours): Temp Pulse Resp BP Pulse Ox 98 F 79 18 156/82 H 98 07/17/17 07:45 07/17/17 07:45 07/17/17 07:45 07/17/17 07:45 07/17/17 07:45 - Medications Medications: Current Medications Acetaminophen (Tylenol 650mg/20.3ml Solution Ud) 650 mg PO Q6 PRN PRN Reason: Fever 100.6 and above Last Admin: 07/06/17 11:58 Dose: 650 mg Albuterol/Ipratropium (Duoneb 3 Mg/0.5 Mg (3 Ml) Ud) 3 ml INH RQ6 [facility] Last Admin: 07/17/17 07:23 Dose: 3 ml Alprazolam (Xanax) 0.25 mg PO BID PRN PRN Reason: Anxiety Stop: 07/19/17 00:01 Last Admin: 07/14/17 21:39 Dose: 0.25 mg Amlodipine Besylate (Norvasc) 10 mg PO DAILY [facility] Last Admin: 07/16/17 10:04 Dose: 10 mg Aspirin (Aspirin Chewable) 81 mg PO DAILY [facility] Last Admin: 07/16/17 10:04 Dose: 81 mg Clonidine HCl (Catapres) 0.1 mg PO QID [facility] Last Admin: 07/16/17 22:36 Dose: 0.1 mg Clopidogrel Bisulfate (Plavix) 75 mg PO DAILY [facility] Last Admin: 07/16/17 10:04 Dose: 75 mg Epoetin Pieter (Procrit) 10,000 unit SC TTS [facility] Last Admin: 07/16/17 12:46 Dose: 10,000 unit Famotidine (Pepcid) 20 mg PO DAILY [facility] Last Admin: 07/16/17 10:04 Dose: 20 mg Furosemide (Lasix) 40 mg IVP DAILY [facility] Last Admin: 07/16/17 10:05 Dose: 40 mg Glimepiride (Amaryl) 1 mg PO BIDAC [facility] Last Admin: 07/17/17 08:49 Dose: 1 mg Hydralazine HCl (Apresoline) 10 mg IVP Q6H [facility] Last Admin: 07/17/17 06:24 Dose: 10 mg Insulin Glargine (Lantus) 28 unit SC HS [facility] Insulin Human Regular (Novolin R) 0 unit SC Q6H [facility] PRN Reason: Protocol Last Admin: 07/17/17 07:07 Dose: 3 unit Losartan Potassium (Cozaar) 50 mg PO BID [facility] Last Admin: 07/06/17 09:34 Dose: 50 mg Metoprolol Tartrate (Lopressor) 75 mg PO BID [facility] Last Admin: 07/16/17 18:31 Dose: 75 mg Prednisone (Prednisone Tab) 10 mg PO DAILY [facility] Stop: 07/17/17 23:59 Rosuvastatin Calcium (Crestor) 10 mg PO HS [facility] Last Admin: 07/16/17 22:35 Dose: 10 mg Fluticasone/Salmeterol (Advair Diskus 250/50) 1 puff INH RQ12 [facility] Last Admin: 07/17/17 09:44 Dose: Not Given Tiotropium [place] (Spiriva) 18 mcg INH RQ24 [facility] Last Admin: 07/17/17 09:44 Dose: Not Given Vitamin B Complex/Vit C/Folic Acid (Nephro-Lc) 1 tab PO 0800 [facility] Last Admin: 07/17/17 08:48 Dose: 1 tab - Labs Labs: 07/17/17 07:15 07/17/17 07:15 PT 13.6 SECONDS (9.7-12.2) H 07/06/17 06:28 INR 1.2 07/06/17 06:28 APTT 33 SECONDS (21-34) D 07/06/17 06:28 - Constitutional Appears: Well, Non-toxic (conversant vocal, some disorientation ) - Head Exam Head Exam: ATRAUMATIC, NORMOCEPHALIC - Eye Exam Eye Exam: Normal appearance. absent: Nystagmus - ENT Exam ENT Exam: Mucous Membranes Moist - Neck Exam Neck Exam: Full ROM. absent: Tenderness - Respiratory Exam Respiratory Exam: Clear to Ausculation Bilateral, NORMAL BREATHING PATTERN - Cardiovascular Exam Cardiovascular Exam: REGULAR RHYTHM - GI/Abdominal Exam GI & Abdominal Exam: Soft, Normal Bowel Sounds. absent: Tenderness - Extremities Exam Extremities Exam: Full ROM, Normal Inspection. absent: Pedal Edema - Back Exam Back Exam: NORMAL INSPECTION - Neurological Exam Neurological Exam: Alert, Awake, Normal Gait - Psychiatric Exam Psychiatric exam: Normal Affect, Normal Mood - Skin Skin Exam: Intact, Normal Color Assessment and Plan - Assessment and Plan (Free Text) Plan: Patient with Respiratory failure resolved Fluid overload- corrected- on lasix CRI stable Anemia- stable IDDM 2 improving curerently on last days of steroid for COPD exacerbation, Insulin been adjusted- to adjust accordingly Hypertension CAD with pulse rate on the 70's BP mildly elevated due to presence of aneurysm- will increase toprol- as discussed with Dr rogers Discussion with neuro- follow up as outpatient and with [place] doctor [place] Discussion with hem- will follow up as outpaetien discussed with and patient
[2017-07-17] MEDS ORDERED: Potassium Chloride 20 mEq ER Tab PO ONE (11:42)
--- NOTE | 2017-07-17 13:59 | CP.PCM.PN ---
Subjective - Date & Time of Evaluation Date of Evaluation: 07/17/17 Time of Evaluation: 09:00 - Subjective Subjective: Pulmonology Note for Dr. Alves's Service Patient was seen and examined at bedside. He reports he feels well. Had another few beats of VTACH last night. Cardiology aware, however due to aneursym- no cardiac cath. Denied fever, chills, headache, chest pain, SOB, cough abdominal pain, n/v/d/c, or urinary symptoms. As per primary team- patient is being discharged today back to [facility]. Objective - Vital Signs/Intake and Output Vital Signs (last 24 hours): Temp Pulse Resp BP Pulse Ox 98 F 79 18 152/86 H 98 07/17/17 07:45 07/17/17 07:45 07/17/17 07:45 07/17/17 10:45 07/17/17 07:45 - Medications Medications: Current Medications Acetaminophen (Tylenol 650mg/20.3ml Solution Ud) 650 mg PO Q6 PRN PRN Reason: Fever 100.6 and above Last Admin: 07/06/17 11:58 Dose: 650 mg Albuterol/Ipratropium (Duoneb 3 Mg/0.5 Mg (3 Ml) Ud) 3 ml INH RQ6 [facility] Last Admin: 07/17/17 07:23 Dose: 3 ml Alprazolam (Xanax) 0.25 mg PO BID PRN PRN Reason: Anxiety Stop: 07/19/17 00:01 Last Admin: 07/14/17 21:39 Dose: 0.25 mg Amlodipine Besylate (Norvasc) 10 mg PO DAILY [facility] Last Admin: 07/17/17 10:46 Dose: 10 mg Aspirin (Aspirin Chewable) 81 mg PO DAILY [facility] Last Admin: 07/17/17 10:45 Dose: 81 mg Clonidine HCl (Catapres) 0.1 mg PO QID [facility] Last Admin: 07/17/17 10:46 Dose: 0.1 mg Clopidogrel Bisulfate (Plavix) 75 mg PO DAILY [facility] Last Admin: 07/17/17 10:46 Dose: 75 mg Epoetin Pieter (Procrit) 10,000 unit SC TTS [facility] Last Admin: 07/16/17 12:46 Dose: 10,000 unit Famotidine (Pepcid) 20 mg PO DAILY [facility] Last Admin: 07/17/17 10:46 Dose: 20 mg Furosemide (Lasix) 40 mg IVP DAILY [facility] Last Admin: 07/17/17 10:45 Dose: 40 mg Glimepiride (Amaryl) 1 mg PO BIDAC [facility] Last Admin: 07/17/17 08:49 Dose: 1 mg Hydralazine HCl (Apresoline) 10 mg IVP Q6H [facility] Last Admin: 07/17/17 12:36 Dose: 10 mg Insulin Glargine (Lantus) 28 unit SC HS [facility] Insulin Human Regular (Novolin R) 0 unit SC Q6H [facility] PRN Reason: Protocol Last Admin: 07/17/17 12:34 Dose: 3 unit Losartan Potassium (Cozaar) 50 mg PO BID [facility] Last Admin: 07/06/17 09:34 Dose: 50 mg Metoprolol Tartrate (Lopressor) 100 mg PO BID [facility] Last Admin: 07/17/17 10:52 Dose: 100 mg Prednisone (Prednisone Tab) 10 mg PO DAILY [facility] Stop: 07/17/17 23:59 Last Admin: 07/17/17 10:52 Dose: 10 mg Rosuvastatin Calcium (Crestor) 10 mg PO HS [facility] Last Admin: 07/16/17 22:35 Dose: 10 mg Fluticasone/Salmeterol (Advair Diskus 250/50) 1 puff INH RQ12 [facility] Last Admin: 07/17/17 09:44 Dose: Not Given Tiotropium [place] (Spiriva) 18 mcg INH RQ24 [facility] Last Admin: 07/17/17 09:44 Dose: Not Given Vitamin B Complex/Vit C/Folic Acid (Nephro-Lc) 1 tab PO 0800 [facility] Last Admin: 07/17/17 08:48 Dose: 1 tab - Labs Labs: 07/17/17 07:15 07/17/17 07:15 PT 13.6 SECONDS (9.7-12.2) H 07/06/17 06:28 INR 1.2 07/06/17 06:28 APTT 33 SECONDS (21-34) D 07/06/17 06:28 - Additional Findings Additional findings: - Constitutional Appears: No Acute Distress - Head Exam Head Exam: NORMAL INSPECTION, NORMOCEPHALIC - Eye Exam Eye Exam: EOMI, Normal appearance, PERRL Pupil Exam: NORMAL ACCOMODATION - ENT Exam ENT Exam: Mucous Membranes Moist, Normal Exam, Normal Oropharynx. absent: Mucous Membranes Dry - Neck Exam Neck Exam: Normal Inspection. absent: Lymphadenopathy, Thyromegaly - Respiratory Exam Respiratory Exam: Clear to Ausculation Bilateral, NORMAL BREATHING PATTERN. absent: Rales, Rhonchi, Wheezes - Cardiovascular Exam Cardiovascular Exam: REGULAR RHYTHM, RRR, +S1, +S2 - GI/Abdominal Exam GI & Abdominal Exam: Soft, Normal Bowel Sounds. absent: Distended, Tenderness - Extremities Exam Extremities Exam: Normal Inspection. absent: Pedal Edema, Tenderness - Neurological Exam Neurological Exam: Alert, Awake, Oriented x3 - Psychiatric Exam Psychiatric exam: Normal Affect, Normal Mood - Skin Skin Exam: Dry, Intact, Normal Color, Warm Assessment and Plan - Assessment and Plan (Free Text) Plan: Hypercapnic respiratory failure, chronic On admission patient was hypoglycemic, hypercapnic and hypotensive. Chest x-ray showed pulmonary edema. Patient was placed on BiPAP, repeat ABG improving hypercapnia. Continue current management - recommend outpatient sleep study - clear from DC from pulmonology standpoint BiPAP PRN Duonebs Q6H Lasix 40mg IVP daily Prednisone 40mg PO daily --> Continue with taper as per primary Spiriva 18mcg INH QD Advair 250/50 Q12H Episodes of VTACH Dr. Butler on consult Recommend EP consult - Dr. Wisdom - help appreciated Not a candidate for cath due to Cerebral Aneurysm and Acute on Chronic CKD Increase Lopressor to 75 mg po bid Hx of HTN Current management as per primary team Hx of CHF ECHO 07/02/17: EF 65%, mild calcified thickening of aortic valve. Refer to complete report Acute on Chronic CKD Hx Obstructive sleep apnea/obesity hypoventilation syndrome History of TIA (transient ischemic attack) Family history of cerebral aneurysm AMS 07/[address]- Intracranial arterial calcifications; stable chronic infarcts noted. Refer to full report. Would benefit from MRI of brain. Head CT did not appear to show signs of aneurysmal disease. EEG reviewed by Neuro- Slow wave activity noted w/o paroxysmal activity or focal slowing Neuro on case for AMS -brain MRI and head MRA ordered, noted to have a Cerebral Aneurysm Cont to monitor DW Gricelda Barahona DO, PGY-1
[2017-07-17 14:18] VITALS: BP 141/72; RESP 20; TEMP 98.6
[2017-07-17 15:44] VITALS: PULSE 79; O2SAT 98
--- NOTE | 2017-07-17 17:49 | CP.PCM.DIS ---
Provider - Provider Date of Admission: 07/02/17 20:53 Attending physician: Paola Adams MD Time Spent in preparation of Discharge (in minutes): 30 Hospital Course - Lab Results Lab Results: Micro Results 07/05/17 16:00 Blood-Venous Blood Culture - Final NO GROWTH AFTER 5 DAYS 07/05/17 16:00 Blood-Venous Gram Stain - Final TEST NOT PERFORMED 07/05/17 15:45 Blood-Venous Blood Culture - Final NO GROWTH AFTER 5 DAYS 07/05/17 15:45 Blood-Venous Gram Stain - Final TEST NOT PERFORMED 07/09/17 Unknown Naris MRSA Culture - Final MRSA NOT DETECTED 07/05/17 16:04 Urine,[place] Urine Culture - Final Coagulase Neg Staphylococcus 07/02/17 23:00 Blood-Venous Blood Culture - Final NO GROWTH AFTER 5 DAYS 07/02/17 23:00 Blood-Venous Gram Stain - Final TEST NOT PERFORMED 07/02/17 22:45 Blood-Venous Blood Culture - Final NO GROWTH AFTER 5 DAYS 07/02/17 22:45 Blood-Venous Gram Stain - Final TEST NOT PERFORMED 07/05/17 16:04 Trachasp Gram Stain - Final 07/05/17 16:04 Trachasp Sputum Culture - Final NORMAL ORAL RICK 07/02/17 08:30 Naris MRSA Culture (Admit) - Final MRSA NOT DETECTED Most Recent Lab Values WBC 8.7 K/uL (4.8-10.8) 07/17/17 07:15 RBC 3.85 Mil/uL (4.40-5.90) L 07/17/17 07:15 Hgb 10.7 g/dL (12.0-18.0) L 07/17/17 07:15 Hct 33.3 % (35.0-51.0) L 07/17/17 07:15 MCV 86.7 fL (80.0-94.0) 07/17/17 07:15 MCH 27.7 pg (27.0-31.0) 07/17/17 07:15 MCHC 32.0 g/dL (33.0-37.0) L 07/17/17 07:15 RDW 19.4 % (11.5-14.5) H 07/17/17 07:15 Plt Count 241 K/uL (130-400) 07/17/17 07:15 MPV 8.6 fL (7.2-11.7) 07/17/17 07:15 Neut % (Auto) 80.5 % (50.0-75.0) H 07/14/17 07:05 Lymph % (Auto) 12.2 % (20.0-40.0) L 07/14/17 07:05 [place] % (Auto) 6.8 % (0.0-10.0) 07/14/17 07:05 Eos % (Auto) 0.4 % (0.0-4.0) 07/14/17 07:05 Baso % (Auto) 0.1 % (0.0-2.0) 07/14/17 07:05 Neut # 7.6 K/uL (1.8-7.0) H 07/14/17 07:05 Lymph # 1.1 K/uL (1.0-4.3) 07/14/17 07:05 [place] # 0.6 K/uL (0.0-0.8) 07/14/17 07:05 Eos # 0.0 K/uL (0.0-0.7) 07/14/17 07:05 Baso # 0.0 K/uL (0.0-0.2) 07/14/17 07:05 Neutrophils % (Manual) 85 % (50-75) H 07/13/17 12:39 Band Neutrophils % 1 % (0-2) 07/13/17 12:39 Lymphocytes % (Manual) 9 % (20-40) L 07/13/17 12:39 Monocytes % (Manual) 4 % (0-10) 07/13/17 12:39 Eosinophils % (Manual) 1 % (0-4) 07/13/17 12:39 Toxic Granulation Present 07/11/17 06:07 Platelet Estimate Normal (NORMAL) 07/13/17 12:39 Large Platelets Present 07/11/17 06:07 Giant Platelets Present 07/03/17 06:04 Polychromasia Slight 07/11/17 06:07 Hypochromasia (manual) Slight 07/13/17 12:39 Poikilocytosis (manual Slight 07/13/17 12:39 Anisocytosis (manual) Slight 07/13/17 12:39 Microcytosis (manual) Slight 07/05/17 06:33 Macrocytosis (manual) Slight 07/05/17 06:33 Target Cells Slight 07/13/17 12:39 Ovalocytes Slight 07/10/17 06:22 PT 13.6 SECONDS (9.7-12.2) H 07/06/17 06:28 INR 1.2 07/06/17 06:28 APTT 33 SECONDS (21-34) D 07/06/17 06:28 Puncture Site Rra 07/10/17 11:37 pCO2 60 mm/Hg (35-45) H 07/10/17 11:37 pO2 157 mm/Hg (80-100) H 07/10/17 11:37 HCO3 31.8 mmol/L (21-28) H 07/10/17 11:37 ABG pH 7.38 (7.35-7.45) 07/10/17 11:37 ABG Total CO2 37.3 mmol/L (22-28) H 07/10/17 11:37 ABG O2 Saturation 99.1 % (95-98) H 07/10/17 11:37 ABG Base Excess 8.8 mmol/L (-2.0-3.0) H 07/10/17 11:37 ABG Hemoglobin 10.2 g/dL (11.7-17.4) L 07/10/17 11:37 ABG Carboxyhemoglobin 2.4 % (0.5-1.5) H 07/10/17 11:37 POC ABG HHb (Measured) 0.9 % (0.0-5.0) 07/10/17 11:37 ABG Methemoglobin 1.2 % (0.0-3.0) 07/10/17 11:37 Luis Carlos Test Pos 07/10/17 11:37 ABG Potassium 4.3 mmol/L (3.6-5.2) 07/03/17 08:07 VBG pH 7.29 (7.32-7.43) L 07/02/17 22:57 VBG pCO2 58 mmHg (40-60) 07/02/17 22:57 VBG HCO3 23.5 mmol/L 07/02/17 22:57 VBG Total CO2 29.7 mmol/L (22-28) H 07/02/17 22:57 VBG O2 Sat (Calc) 58.3 % (40-65) 07/02/17 22:57 VBG Base Excess 0.1 mmol/L (0.0-2.0) 07/02/17 22:57 VBG Potassium 4.1 mmol/L (3.6-5.2) 07/02/17 22:57 A-a O2 Difference 53.0 mm/Hg 07/10/17 11:37 Respiratory Index 0.3 07/10/17 11:37 Hgb O2 Saturation 95.5 % (95.0-98.0) 07/10/17 11:37 Sodium 135.0 mmol/l (132-148) 07/03/17 08:07 Chloride 106.0 mmol/L (98-107) 07/03/17 08:07 Glucose 232 mg/dl (75-110) H 07/03/17 08:07 Lactate 0.5 mmol/L (0.7-2.1) L 07/03/17 08:07 Liter Flow 4.0 07/05/17 11:26 Vent Mode Bipap 07/10/17 11:37 Mechanical Rate 12 07/08/17 04:12 FiO2 40.0 % 07/10/17 11:37 Tidal Volume 400 07/08/17 04:12 PEEP 5 07/08/17 04:12 Inspiratory BiPAP 12 07/10/17 11:37 Expiratory BiPAP 6 07/10/17 11:37 Crit Value Called To Jacklyn mari agriculture intern 07/07/17 05:29 Crit Value Called By Tiffanie benito rt 07/07/17 05:29 Crit Value Read Back Y 07/07/17 05:29 Blood Gas Notified Time 545 07/07/17 05:29 Sodium 134 mmol/L (132-148) 07/17/17 07:15 Potassium 3.4 mmol/L (3.6-5.2) L 07/17/17 07:15 Chloride 95 mmol/L (98-107) L 07/17/17 07:15 Carbon Dioxide 31 mmol/L (22-30) H 07/17/17 07:15 Anion Gap 11 (10-20) 07/17/17 07:15 BUN 45 mg/dL (9-20) H 07/17/17 07:15 Creatinine 1.6 mg/dL (0.8-1.5) H 07/17/17 07:15 Est GFR ( Amer) 53 07/17/17 07:15 Est GFR (Non-Af Amer) 44 07/17/17 07:15 POC Glucose (mg/dL) 269 mg/dL (65-110) H 07/17/17 11:11 Random Glucose 265 mg/dL (75-110) H 07/17/17 07:15 Hemoglobin A1c 6.8 % (4.2-6.5) H 07/02/17 23:22 Calcium 8.2 mg/dl (8.6-10.4) L 07/17/17 07:15 Phosphorus 4.6 mg/dL (2.5-4.5) H 07/14/17 07:05 Magnesium 2.6 mg/dL (1.6-2.3) H 07/14/17 07:05 Iron 12 ug/dL (49-181) L 07/07/17 15:07 TIBC 208 ug/dL (250-450) L 07/07/17 15:07 % Saturation 6 (20-55) L 07/07/17 15:07 Ferritin 368.0 ng/mL 07/07/17 15:07 Total Bilirubin 0.4 mg/dL (0.2-1.3) 07/14/17 07:05 AST 17 U/L (17-59) 07/14/17 07:05 ALT 38 U/L (21-72) 07/14/17 07:05 Alkaline Phosphatase 95 U/L (38-126) 07/14/17 07:05 Total Creatine Kinase 57 U/L (55-170) 07/06/17 06:28 CK-MB (Mass) 0.57 ng/mL (0.0-3.38) 07/06/17 06:28 Troponin I 0.0860 ng/mL (0.00-0.120) 07/13/17 12:39 Troponin I, Quant 0.2560 ng/mL (0.00-0.120) H* 07/06/17 06:28 NT-Pro-B Natriuret Pep 7950 pg/mL (0-900) H 07/13/17 12:39 Total Protein 7.1 g/dL (6.3-8.3) 07/14/17 07:05 Albumin 3.2 g/dL (3.5-5.0) L 07/14/17 07:05 Globulin 4.0 gm/dL (2.2-3.9) H 07/14/17 07:05 Albumin/Globulin Ratio 0.8 (1.0-2.1) L 07/14/17 07:05 Wfyhr-2-Cxhtaeupr 6.4 Relative % 07/05/17 06:26 Ltaav-1-Jfcxgbfqx 7.1 Relative % 07/05/17 06:26 Beta Globulins 12.7 Relative % 07/05/17 06:26 Gamma Globulins 13.8 Relative % 07/05/17 06:26 Vitamin B12 478 pg/mL (239-931) 07/03/17 06:04 Procalcitonin 0.22 NG/ML (0.19-0.49) 07/02/17 23:22 TSH 3rd Generation 0.65 mIU/L (0.46-4.68) 07/03/17 06:04 Prolactin 7.1 ng/mL (3.7-17.9) 07/03/17 08:14 Arterial Blood Potassium 4.3 mmol/L (3.6-5.2) 07/03/17 08:07 Venous Blood Potassium 4.1 mmol/L (3.6-5.2) 07/02/17 22:57 Urine Color Yellow (YELLOW) 07/05/17 19:01 Urine Clarity Hazy (Clear) 07/05/17 19:01 Urine pH 5.0 (5.0-8.0) 07/05/17 19:01 Ur Specific [place] 1.012 (1.003-1.030) 07/05/17 19:01 Urine Protein 2+ mg/dL (NEGATIVE) H 07/05/17 19:01 Urine Glucose (UA) 1+ mg/dL (Normal) H 07/05/17 19:01 Urine Ketones Negative mg/dL (NEGATIVE) 07/05/17 19: Urine Blood 3+ (NEGATIVE) H 07/05/17 19:01 Urine Nitrate Negative (NEGATIVE) 07/05/17 19: Urine Bilirubin Negative (NEGATIVE) 07/05/17 19: Urine Urobilinogen Normal mg/dL (0.2-1.0) 07/05/17 19:01 Ur Leukocyte Esterase Trace Edy/uL (Negative) 07/05/17 19:01 Urine WBC (Auto) 9 /hpf (0-5) H 07/05/17 19:01 Urine RBC (Auto) 621 /hpf (0-3) H 07/05/17 19:01 Ur Squamous Epith Cells < 1 /hpf (0-5) 07/05/17 19:01 Urine Bacteria Mod (<OCC) H 07/05/17 19:01 Hyaline Casts 0-2 /lpf (0-2) 07/02/17 21:12 Urine Osmolality 322 mosm/kg (300-1000) 07/04/17 12:21 Ur Random Creatinine 66 mg/dL (20-370) 07/05/17 06:26 U Random Total Protein 1641 mg/g creat (22-128) H 07/05/17 06:26 Ur Random Sodium 32 mmol/L 07/04/17 12:21 Ur Random Potassium 26.6 mmol/L 07/04/17 12:21 Urine Collection Time 24 HRS 07/05/17 19:01 Urine Total Volume 3700 mL 07/05/17 19:01 Ur Creatinine 24 Hour 1239.5 mg/24hr (800-2800) 07/05/17 19:01 Creatinine Clearance 52.0 mL/min (107-139) L 07/05/17 19:01 Urine Chloride 79 mmol/L (32-290) 07/05/17 06:26 Ur Protein 24 Hr Calc 2553.0 mg/24hr (42-225) H 07/05/17 19:01 Urine Albumin (PEP) 60.1 Relative % 07/05/17 06:26 Ur Protein Fractions See note 07/05/17 06:26 Stool Occult Blood Negative (NEGATIVE) 07/08/17 00:00 Serum Immunofixation Detected (Not Detected) H 07/13/17 20:03 Urine Immunofixation Detected (Not Detected) H 07/13/17 21:36 JOSY 6 Profile Positive (NEGATIVE) H 07/05/17 06:33 JOSY Titer 1:40 H 07/05/17 06:33 JOSY Pattern Homogenous H 07/05/17 06:33 Complement C3 129.0 mg/dL (88.0-165.0) 07/05/17 06:33 Complement C4 22.8 mg/dL (14.0-44.0) 07/05/17 06:33 RPR Nonreactive (NONREACTIVE) 07/03/17 08:14 Hep Bs Antigen Negative (NEGATIVE) 07/05/17 06:33 Hep Bs Antibody Negative (NEGATIVE) 07/05/17 06:33 Hepatitis C Antibody Negative (NEGATIVE) 07/05/17 06:33 Blood Type B POSITIVE 07/07/17 15:07 Antibody Screen Negative 07/07/17 15:07 - Hospital Course Hospital Course: admitted for fluid overload , also was in persistent hypoglycemia dus to insiulin overdose, had respiratory failure and intubated- patient improved with medications adjustments Discharge Exam - Head Exam Head Exam: ATRAUMATIC, NORMOCEPHALIC - Eye Exam Eye Exam: Normal appearance - ENT Exam ENT Exam: Mucous Membranes Moist - Respiratory Exam Respiratory Exam: Clear to PA & Lateral, NORMAL BREATHING PATTERN - GI/Abdominal Exam GI & Abdominal Exam: Normal Bowel Sounds, Soft. absent: Tenderness - Extremities Exam Extremities exam: normal inspection - Back Exam Back exam: absent: rash noted - Neurological Exam Neurological exam: Alert (some disorientation), Normal Gait - Psychiatric Exam Psychiatric exam: Normal Affect, Normal Mood - Skin Skin Exam: Intact, Normal Color Discharge Plan - Follow Up Plan Condition: SERIOUS Disposition: REHAB FACILITY/REHAB UNIT Instructions: Heart Failure (DC), Pulmonary Edema (DC), Diabetic Foot Care (DC) , Diabetic Hypoglycemia (DC), Basic Carbohydrate Counting (DC), Meal Planning with the Plate Method (DC), Meal Planning with Diabetes Exchanges (DC) Referrals: Paola Adams MD [Medical Doctor] -
--- NOTE | 2017-07-17 18:42 | CARD ---
APPROVED REPORT EKG Measurement Heart [id number] CT 176P10 [id number] <Conclusion> Sinus rhythm with PACs. Right bundle branch block Left anterior fascicular block Bifascicular block Abnormal ECG
[2017-07-20 03:01] LABS: FREE KAPPA SERUM 37.4 mg/L (3.3-19.4); FREE LAMBDA SERUM 19.7 mg/L (5.7-26.3)
[2017-07-21 02:12] LABS: IGG,SERUM 1526 mg/dL (694-1618); IGM,SERUM 87 mg/dL (48-271)
== END 2017-07-17 16:52 | DRG 917 ==
LOC: C.ER 14:35 → C.9I 20:53 → C.6T 07-09 19:48
PROVIDERS: ADMIT Internal Medicine; ATTEND Internal Medicine
PROC: 5A09457 Assistance with Respiratory Ventilation, 24-96 Consecutive Hours, Continuous Positive Airway Pressure (ICD-10-PCS; 2017-07-02)
PROC: 5A1945Z Respiratory Ventilation, 24-96 Consecutive Hours (ICD-10-PCS; 2017-07-05)
PROC: 0BH17EZ Insertion of Endotracheal Airway into Trachea, Via Natural or Artificial Opening (ICD-10-PCS; 2017-07-05)
PROC: 02HV33Z Insertion of Infusion Device into Superior Vena Cava, Percutaneous Approach (ICD-10-PCS; principal; 2017-07-10)
DX: T38.3X1A Poisoning by insulin and oral hypoglycemic [antidiabetic] drugs, accidental (unintentional), initial encounter (principal); J96.21 Acute and chronic respiratory failure with hypoxia; I63.9 Cerebral infarction, unspecified; I47.2 Ventricular tachycardia; G93.41 Metabolic encephalopathy; N17.9 Acute kidney failure, unspecified; J18.9 Pneumonia, unspecified organism; N18.3 Chronic kidney disease, stage 3 (moderate); J96.22 Acute and chronic respiratory failure with hypercapnia; E87.3 Alkalosis; J44.0 Chronic obstructive pulmonary disease with (acute) lower respiratory infection; I13.0 Hypertensive heart and chronic kidney disease with heart failure and stage 1 through stage 4 chronic kidney disease, or unspecified chronic kidney disease; I16.0 Hypertensive urgency; E11.649 Type 2 diabetes mellitus with hypoglycemia without coma; E78.00 Pure hypercholesterolemia, unspecified; I27.20 Pulmonary hypertension, unspecified; E16.0 Drug-induced hypoglycemia without coma; I50.9 Heart failure, unspecified; E78.5 Hyperlipidemia, unspecified; E87.6 Hypokalemia; F41.9 Anxiety disorder, unspecified; G47.33 Obstructive sleep apnea (adult) (pediatric); I25.10 Atherosclerotic heart disease of native coronary artery without angina pectoris; I67.1 Cerebral aneurysm, nonruptured; D50.9 Iron deficiency anemia, unspecified; D63.1 Anemia in chronic kidney disease; E11.21 Type 2 diabetes mellitus with diabetic nephropathy; E11.22 Type 2 diabetes mellitus with diabetic chronic kidney disease; Z79.4 Long term (current) use of insulin; Z95.1 Presence of aortocoronary bypass graft; Y92.009 Unspecified place in unspecified non-institutional (private) residence as the place of occurrence of the external cause

== ENCOUNTER 2017-11-02 14:43 | Inpatient (IN) | payer MEDICARE ==
[2017-11-02] MEDS ORDERED: Nitroglycerin 2% Ointment Foilpak UD TOP STA (15:35)
[2017-11-02] MEDS ORDERED: Nitroglycerin 2% Ointment Foilpak UD TOP ONE (15:43)
[2017-11-02 15:56] LABS: BASO % 0.2 % (0.0-2.0); EOS # 0.2 K/uL (0.0-0.7); EOS % 3.3 % (0.0-4.0); HEMOGLOBIN 11.8 g/dL (12.0-18.0); LYMPH # 1.1 K/uL (1.0-4.3); LYMPH % 18.5 % (20.0-40.0); MEAN CELL VOLUME 86.7 fL (80.0-94.0); MEAN CORPUSCULAR HGB CONC 32.3 g/dL (33.0-37.0); MEAN PLATELET VOLUME 8.2 fL (7.2-11.7); MONO # 0.4 K/uL (0.0-0.8); MONO % 6.6 % (0.0-10.0); NEUT # 4.4 K/uL (1.8-7.0); NEUT % 71.4 % (50.0-75.0); RBC 4.22 Mil/uL (4.40-5.90); RED CELL DISTRIBUTION WIDTH 15.5 % (11.5-14.5); WHITE BLOOD COUNT 6.1 K/uL (4.8-10.8)
[2017-11-02 16:04] LABS: INR 1.1; PROTHROMBIN TIME 12.5 SECONDS (9.7-12.2)
[2017-11-02 16:20] LABS: ALB/GLOB RATIO 0.9 (1.0-2.1); ALBUMIN 3.5 g/dL (3.5-5.0); CALCIUM 8.5 mg/dl (8.6-10.4); MAGNESIUM 2.3 mg/dL (1.6-2.3)
[2017-11-02 16:29] LABS: TROPONIN I 0.089 ng/mL (0.00-0.120)
--- NOTE | 2017-11-02 16:46 | RAD ---
PROCEDURE: CHEST RADIOGRAPH, 1 VIEW HISTORY: SOB COMPARISON: 07/10/2017 FINDINGS: LUNGS: Patchy left apical and right basilar opacities. Possible multifocal pneumonia. PLEURA: Blunting of right costophrenic angle. Possible small right pleural effusion. No left pleural effusion. No pneumothorax. CARDIOVASCULAR: Cardiomegaly. CABG. OSSEOUS STRUCTURES: No significant abnormalities. VISUALIZED UPPER ABDOMEN: Normal. OTHER FINDINGS: None. IMPRESSION: Left apical and right basilar opacities. Possible multifocal pneumonia. Small right pleural effusion. CABG. Cardiomegaly.
[2017-11-02 16:47] LABS: ABG ALLEN TEST YES; ARTERIAL BLOOD GAS HCO3 26.3 mmol/L (21-28); ARTERIAL BLOOD GAS O2 SAT 96.6 % (95-98); ARTERIAL BLOOD GAS PCO2 53 mm/Hg (35-45); ARTERIAL BLOOD GAS PH 7.34 (7.35-7.45); ARTERIAL BLOOD GAS PO2 79 mm/Hg (80-100); ARTERIAL BLOOD GAS TCO2 30.2 mmol/L (22-28)
[2017-11-02] MEDS ORDERED: Moxifloxacin IV 400mg/250ml NS 400 MG/250 ML BAG IVPB STA (16:54)
[2017-11-02] MEDS ORDERED: Piperacillin/Tazobact 3.375 gm 100 ML IVPB STA (16:55)
[2017-11-02 17:06] LABS: URINE BACTERIA RARE (<OCC); URINE BILIRUBIN NEGATIVE (NEGATIVE); URINE BLOOD NEGATIVE (NEGATIVE); URINE CLARITY Clear (Clear); URINE COLOR Straw (YELLOW); URINE GLUCOSE (UA) 1+ mg/dL (Normal); URINE LEUKOCYTE ESTERASE NEG Leu/uL (Negative); URINE NITRATE NEGATIVE (NEGATIVE); URINE PROTEIN 3+ mg/dL (NEGATIVE); URINE UROBILINOGEN NORMAL mg/dL (0.2-1.0)
--- NOTE | 2017-11-02 17:14 | C.PDOC ---
Time Seen by Provider: 11/02/17 15:07 Chief Complaint (Nursing): Shortness Of Breath History Per: Patient, Family () History/Exam Limitations: clinical condition Onset/Duration Of Symptoms: Days Current Symptoms Are (Timing): Worse Severity: Severe Reports Recently: Treated By A Physician, Hospitalized Additional History Per: Prior Records Past Medical History Reviewed: Historical Data, Nursing Documentation, Vital Signs Vital Signs: Last Vital Signs Temp Pulse 88 11/02/17 16:25 Resp 24 11/02/17 16:25 BP 166/109 H 11/02/17 16:25 Pulse Ox 95 11/02/17 17:14 - Medical History PMH: CHF, COPD, Diabetes, HTN, Hypercholesterolemia, Chronic Kidney Disease - [facility] Procedures ASSISTANCE WITH RESPIRATORY VENTILATION, 24-96 HRS, CPAP (07/02/17) INSERTION OF ENDOTRACHEAL AIRWAY INTO TRACHEA, VIA OPENING (07/02/17) INSERTION OF INFUSION DEV INTO SUP VENA CAVA, PERC APPROACH (07/02/17) RESPIRATORY VENTILATION, 24-96 CONSECUTIVE HOURS (07/02/17) Family History: States: Unknown Family Hx - Social History Hx Tobacco Use: No Hx Alcohol Use: No Hx Substance Use: No - Immunization History Hx Tetanus Toxoid Vaccination: No Hx Influenza Vaccination: No Hx Pneumococcal Vaccination: Yes Review Of Systems Except As Marked, All Systems Reviewed And Found Negative. Constitutional: Positive for: Malaise Cardiovascular: Positive for: Edema. Negative for: Chest Pain Respiratory: Positive for: Cough, Shortness of Breath Gastrointestinal: Negative for: Vomiting, Abdominal Pain Genitourinary: Negative for: Dysuria Musculoskeletal: Negative for: Neck Pain Neurological: Negative for: Weakness, Numbness, Seizures Physical Exam - Physical Exam Appears: In Acute Distress (mild), Chronically Ill, Other (Drowsy) Skin: Normal Color, Warm, Dry Head: Atraumatic Eye(s): bilateral: PERRL, EOMI Neck: Normal ROM, Supple Cardiovascular: Rhythm Regular Respiratory: Rales, Wheezing Gastrointestinal/Abdominal: Soft, No Tenderness Extremity: Normal ROM, Pedal Edema Neurological/Psych: Normal Motor, Normal Sensation, Eyes Open With Command, Slow To Respond With Command ED Course And Treatment - Laboratory Results Result Diagrams: 11/02/17 15:50 11/02/17 15:50 Lab Interpretation: Abnormal Interpretation Of Abnormal: Renal insufficiency. Elevated BNP. Flu A positive. ECG: Interpreted By Me, Viewed By Me ECG Rhythm: Sinus Rhythm, R BBB, Nonspecific Changes ECG Interpretation: No Changes From Prior Rate From EC Pulse Ox Interpretation: Abnormal Interpretation Of Abnormal: Hypoxia on RA - Radiology CXR: Viewed By Me, Read By Radiologist CXR Interpretation: Yes: Infiltrates, Cardiomegaly Progress Note: Pt was placed on BiPAP and given Nitroglycerine paste with improvement. Progress - Interventions Interventions:: Observation, Oxygen - Medications Administered Oral: Aspirin Intravenous: Diuretic - Data Reviewed Data Reviewed: Lab, Diagnostic imaging, EKG, Old records - Patient Status Patient status: Partially improved - Critical Care Citical Care: Excluding Proc Time Critical Care Time: 60 minutes - Continuity of Care Discussed patient case with:: Patient, Family-HIPPA compliant, ED Nurse, PMD - Patient Plan Patient Plan: Admission, Telemetry Disposition Discussed With : Paola Adams Comment: She accepted pt on her service. Doctor Will See Patient In The: Hospital Counseled Patient/Family Regarding: Studies Performed, Diagnosis - Disposition Disposition: HOSPITALIZED Disposition Time: 17:19 Condition: GUARDED - Clinical Impression Clinical Impression: Influenza A, Pneumonia, CHF exacerbation
[2017-11-02] MEDS ORDERED: Moxifloxacin IV 400mg/250ml NS 400 MG/250 ML BAG IVPB ONE (18:11)
--- NOTE | 2017-11-02 19:31 | CP.PCM.HP ---
History of Present Illness - History of Present Illness History of Present Illness: 67 y.o. male with PMH hypertension cad s/p cabg atrial fibrillation chf copd gout/hyperuricemia back injury s/p fall years agop basilar aneurysm- [place] DELUSIONAL DISORDER admitted for CHF exacerbation reports that patient has been coughing, with JUSTIN and sometimes noted lips turning blue, also reports he is swollen , and falls asleep easily, but patient refuses ER. patient agreed to com to the clinic and with those findings - patient was encouraged to go to the hospital, hence admission Meds Lantus Amlodipine 10 Aspirin Clopidogrel Furosemide Advair Allopurionl Glimiperide Clonidine .1 tid METOPROLOL 50 BID ALPRAZOLAM Present on Admission - Present on Admission Any Indicators Present on Admission: Yes History of DVT/PE: No History of Uncontrolled Diabetes: Yes Urinary Catheter: No Decubitus Ulcer Present: No Review of Systems - Review of Systems Systems not reviewed;Unavailable: Respiratory Distress, Altered Mental Status ( ON AND OFF ) - Constitutional Constitutional: Chills, Fatigue, Lethargy, Snoring, Weight Gain - EENT Eyes: absent: Other Visual Disturbances Ears: absent: Decreased Hearing, Abnormal Hearing, Disequilibrium Nose/Mouth/Throat: absent: Epistaxis, Dysphagia, Sore Throat, Tongue Swelling - Cardiovascular Cardiovascular: Dyspnea on Exertion, Edema, Pedal Edema. absent: Chest Pain, Syncope - Respiratory Respiratory: Cough, Wheezing, Chest Congestion - Gastrointestinal Gastrointestinal: absent: Abdominal Pain, Change in Bowel Habits, Diarrhea, Vomiting - Genitourinary Genitourinary: absent: Difficulty Urinating - Musculoskeletal Musculoskeletal: Joint Swelling. absent: Abnormal Gait, Deformity - Integumentary Integumentary: absent: Bleeding Lesions, Rash, Skin Ulcer, Sores - Neurological Neurological: Behavioral Changes (DELUSIONAL DISOREDER PARANIOA), Memory Loss ( SOME). absent: Abnormal Gait, Abnormal Hearing, Abnormal Movements, Abnormal Speech, Convulsions - Psychiatric Psychiatric: Abnormal Sleep Pattern, Confusion. absent: Auditory Hallucinations Past Patient History - Infectious Disease Hx of Infectious Diseases: None - Past Medical History & Family History Past Medical History?: Yes - Past Social History Smoking Status: Never Smoked - CARDIAC Hx Congestive Heart Failure: Yes Hx Hypercholesterolemia: Yes Hx Hypertension: Yes - PULMONARY Hx Chronic Obstructive Pulmonary Disease (COPD): Yes - NEUROLOGICAL Other/Comment: stroke 2012 - HEENT Hx HEENT Problems: No - RENAL Hx Chronic Kidney Disease: Yes - ENDOCRINE/METABOLIC Hx Diabetes Mellitus Type 2: Yes - HEMATOLOGICAL/ONCOLOGICAL Hx Blood Disorders: No - INTEGUMENTARY Hx Dermatological Problems: No - MUSCULOSKELETAL/RHEUMATOLOGICAL Hx Musculoskeletal Disorders: No Hx Falls: Yes - GASTROINTESTINAL Hx Gastrointestinal Disorders: No - GENITOURINARY/GYNECOLOGICAL Hx Genitourinary Disorders: No - PSYCHIATRIC Hx Substance Use: No - SURGICAL HISTORY Other/Comment: triple by pass 2006 - ANESTHESIA Hx Anesthesia: Yes Meds Allergies/Adverse Reactions: Allergies Allergy/AdvReac Type Severity Reaction Status Date / Time No Known Allergies Allergy Verified 07/02/17 14:39 Physical Exam - Constitutional Appears: Non-toxic (AMBULATORY QUIET , NOTED FALLS ASLEEP EASILY), No Acute Distress - Head Exam Head Exam: ATRAUMATIC, NORMOCEPHALIC - Eye Exam Eye Exam: Normal appearance. absent: Nystagmus, Periorbital swelling - ENT Exam ENT Exam: Mucous Membranes Moist - Neck Exam Neck exam: Positive for: Full Rom. Negative for: Tenderness - Respiratory Exam Respiratory Exam: Rhonchi, Wheezes - Cardiovascular Exam Cardiovascular Exam: Irregular Rhythm - GI/Abdominal Exam GI & Abdominal Exam: Normal Bowel Sounds, Soft. absent: Tenderness - Extremities Exam Extremities exam: Positive for: full ROM, joint swelling, pedal edema. Negative for: tenderness - Neurological Exam Neurological exam: Alert, Normal Gait, Oriented x3 - Psychiatric Exam Psychiatric exam: Normal Affect (BUT SEEMS QUIET, CALM, TALKS LESS) - Skin Skin Exam: Intact, Normal Color Results - Vital Signs Recent Vital Signs: Last Vital Signs Temp Pulse 77 11/02/17 18:06 Resp 20 11/02/17 18:06 BP 155/103 H 11/02/17 18:06 Pulse Ox 96 11/02/17 18:06 - Labs Result Diagrams: 11/02/17 15:50 11/02/17 15:50 Labs: Laboratory Results - last 24 hr 11/02/17 11/02/17 11/02/17 15:50 15:50 15:50 WBC 6.1 RBC 4.22 L Hgb 11.8 L Hct 36.6 MCV 86.7 MCH 28.0 MCHC 32.3 L RDW 15.5 H Plt Count 273 MPV 8.2 Neut % (Auto) 71.4 Lymph % (Auto) 18.5 L [place] % (Auto) 6.6 Eos % (Auto) 3.3 Baso % (Auto) 0.2 Neut # (Auto) 4.4 Lymph # (Auto) 1.1 [place] # (Auto) 0.4 Eos # (Auto) 0.2 Baso # (Auto) 0.0 PT 12.5 H INR 1.1 APTT 38 H Puncture Site pCO2 pO2 HCO3 ABG pH ABG Total CO2 ABG O2 Saturation ABG Base Excess Luis Carlos Test ABG Potassium A-a O2 Difference Respiratory Index Glucose Lactate Vent Mode FiO2 Inspiratory BiPAP Expiratory BiPAP Sodium 139 Potassium 4.0 Chloride 103 Carbon Dioxide 26 Anion Gap 14 BUN 31 H Creatinine 1.8 H Est GFR ( Amer) 46 Est GFR (Non-Af Amer) 38 Random Glucose 139 H Calcium 8.5 L Magnesium 2.3 Total Bilirubin 0.4 AST 31 ALT 26 Alkaline Phosphatase 92 Troponin I 0.0890 NT-Pro-B Natriuret Pep 2630 H Total Protein 7.5 Albumin 3.5 Globulin 4.0 H Albumin/Globulin Ratio 0.9 L Arterial Blood Potassium Urine Color Urine Clarity Urine pH Ur Specific [place] Urine Protein Urine Glucose (UA) Urine Ketones Urine Blood Urine Nitrate Urine Bilirubin Urine Urobilinogen Ur Leukocyte Esterase Urine WBC (Auto) Urine RBC (Auto) Urine Bacteria Influenza Typ A,B (EIA) 11/02/17 11/02/17 11/02/17 16:40 16:50 16:51 WBC RBC Hgb Hct MCV MCH MCHC RDW Plt Count MPV Neut % (Auto) Lymph % (Auto) [place] % (Auto) Eos % (Auto) Baso % (Auto) Neut # (Auto) Lymph # (Auto) [place] # (Auto) Eos # (Auto) Baso # (Auto) PT INR APTT Puncture Site Rra pCO2 53 H pO2 79 L HCO3 26.3 ABG pH 7.34 L ABG Total CO2 30.2 H ABG O2 Saturation 96.6 ABG Base Excess 1.8 Luis Carlos Test Yes ABG Potassium 3.9 A-a O2 Difference 69.0 Respiratory Index 0.9 Glucose 131 H Lactate 0.6 L Vent Mode Bipap FiO2 30.0 Inspiratory BiPAP 10 Expiratory BiPAP 5 Sodium 142.0 Potassium Chloride 111.0 H Carbon Dioxide Anion Gap BUN Creatinine Est GFR ( Amer) Est GFR (Non-Af Amer) Random Glucose Calcium Magnesium Total Bilirubin AST ALT Alkaline Phosphatase Troponin I NT-Pro-B Natriuret Pep Total Protein Albumin Globulin Albumin/Globulin Ratio Arterial Blood Potassium 3.9 Urine Color Straw Urine Clarity Clear Urine pH 5.0 Ur Specific [place] 1.011 Urine Protein 3+ H Urine Glucose (UA) 1+ H Urine Ketones Negative Urine Blood Negative Urine Nitrate Negative Urine Bilirubin Negative Urine Urobilinogen Normal Ur Leukocyte Esterase Neg Urine WBC (Auto) < 1 Urine RBC (Auto) 1 Urine Bacteria Rare Influenza Typ A,B (EIA) Pos for influenza a H Assessment & Plan - Assessment and Plan (Free Text) Assessment: PATIENT WITH MULTIPLE MEDICAL PROBLEMS ADMITTED FOR CHF EXACERBATION /COPD EXACERBATION CHECK ZOFIA, I AND O WEIGHT DAILY , FLUID RESTRICTION CARDIO CONSULT COPD/ POSSIBLE PNEUMONIA COVER WITH ANTIBIOTIC , COUGH MEDS RESPIRATORY TREATMENTS STEROID ,PULMO TO NOTIFY ATRIAL FIB- CONTINUE MEDICATIONS IDDM2 - MONITOR AND INSULIN ACCORDINGLY CRI-WITH PROTEINURIA , TO MONITOR, MEDS FOR DOSE ASDJUSTMENT HYPERTENSION CONTINUE MEDS GI PROPHYLAXIS DVT PROPHYLAXIS
[2017-11-03] MEDS: Piperacill/Tazo 3.375gm in Dex 3.375 GM/50 ML BAG IVPB SCH ×3 (00:33→16:34)
[2017-11-03] MEDS: Fluticasone-Salmeterol 250-50mcg Diskus INH SCH ×2 (08:02→21:14)
[2017-11-03] MEDS: Tiotropium 18 mcg Cap For Inhalation INH SCH (08:02)
--- NOTE | 2017-11-03 09:07 | CP.PCM.PN ---
Subjective - Date & Time of Evaluation Date of Evaluation: 11/03/17 Time of Evaluation: 10:00 - Subjective Subjective: Patient admitted for CHF exacerbation with COPD exacerbation, placed on antibiotic steroid respiratory treatment and IV Lasix, overnight - patient received treatment- has less leg swelling and felt some improvement - still cough and wheezing - Eating very well ambulates with cane no SOB , no fever Objective - Vital Signs/Intake and Output Vital Signs (last 24 hours): Temp Pulse Resp BP Pulse Ox 98.0 F 79 20 143/87 95 11/03/17 07:16 11/03/17 07:16 11/03/17 07:16 11/03/17 07:16 11/03/17 07:16 Intake and Output: 11/03/17 11/03/17 06:59 18:59 Intake Total 440 Output Total 100 Balance 340 - Medications Medications: Current Medications Allopurinol (Zyloprim) 100 mg PO BID [facility] Clopidogrel Bisulfate (Plavix) 75 mg PO DAILY [facility] Famotidine (Pepcid) 20 mg IVP Q12H [facility] Furosemide (Lasix) 40 mg IVP DAILY [facility] Heparin Sodium (Porcine) (Heparin) 5,000 units SC Q8 [facility] Last Admin: 11/03/17 05:09 Dose: 5,000 units Piperacillin Sod/Tazobactam Sod (Zosyn 3.375 Gm Iv Premix) 3.375 gm in 50 mls @ 100 mls/hr IVPB Q8H [facility] Last Admin: 11/03/17 00:33 Dose: 100 mls/hr Insulin Glargine (Lantus) 20 unit SC DAILY [facility] Losartan Potassium (Cozaar) 100 mg PO DAILY [facility] Methylprednisolone (Solu-Medrol) 60 mg IVP Q6 [facility] Last Admin: 11/03/17 05:08 Dose: 60 mg Metoprolol Succinate (Toprol Xl) 50 mg PO DAILY [facility] [id number] Ethyl Esters (Lovaza) 2 gm PO BID [facility] Rosuvastatin Calcium (Crestor) 20 mg PO HS [facility] Last Admin: 11/02/17 21:31 Dose: 20 mg Fluticasone/Salmeterol (Advair Diskus 250/50) 1 puff INH RQ12 [facility] Tiotropium [place] (Spiriva) 18 mcg INH RQ24 [facility] - Labs Labs: 11/02/17 15:50 11/02/17 15:50 PT 12.5 SECONDS (9.7-12.2) H 11/02/17 15:50 INR 1.1 11/02/17 15:50 APTT 38 SECONDS (21-34) H 11/02/17 15:50 - Constitutional Appears: Non-toxic, No Acute Distress - Head Exam Head Exam: ATRAUMATIC, NORMOCEPHALIC - Eye Exam Eye Exam: Normal appearance. absent: Nystagmus - ENT Exam ENT Exam: Mucous Membranes Dry - Neck Exam Neck Exam: Full ROM. absent: Tenderness - Respiratory Exam Respiratory Exam: Rhonchi, Wheezes, NORMAL BREATHING PATTERN - Cardiovascular Exam Cardiovascular Exam: REGULAR RHYTHM (sound regular ) - GI/Abdominal Exam GI & Abdominal Exam: Soft, Normal Bowel Sounds. absent: Distended - Extremities Exam Extremities Exam: Full ROM, Normal Inspection, Pedal Edema (but less than yesterday ) - Back Exam Back Exam: Full ROM. absent: rash noted, tenderness - Neurological Exam Neurological Exam: Alert, Awake, Normal Gait (but uses cane- weak), Oriented x3 - Psychiatric Exam Psychiatric exam: Normal Affect, Normal Mood - Skin Skin Exam: Intact, Normal Color Assessment and Plan - Assessment and Plan (Free Text) Assessment: Patient with multiple medical probems admitted for CHF exacerbation- possibly from non compliance to food and medications- medications reviewed and adjusted- with good diuresis- edema is improving COPD exacerbation- on antibiotic, steroid still coughing and wheezing IDDM2- monitor and continue insulin as steroid will aggravate the levels Hypertension Afib- medications- discussion with cardio History TIA History Basilar Aneurysm History CAD s/p CABG CRI- stable Delusional disorder- currently no complaints discussed with patien, family aware
[2017-11-03] MEDS ORDERED: (Lantus) Insulin Glargine, Recombinant SC SCH (10:00)
[2017-11-03] MEDS ORDERED: Home Med 1 UNIT (Valsartan [Diovan] 320 MG) PO SCH (10:00)
[2017-11-03] MEDS ORDERED: Metoprolol Succinate 50 mg XL Tab PO SCH (10:00)
[2017-11-03] MEDS: Omega-3-Acid Ethyl Esters 1 GM Cap PO SCH ×2 (10:24→17:46)
[2017-11-03] MEDS: Oseltamivir 6 MG/ML PO SCH ×2 (10:49→17:46)
[2017-11-03 12:37] LABS: ALB/GLOB RATIO 0.9 (1.0-2.1); ALBUMIN 3.5 g/dL (3.5-5.0); CALCIUM 8.9 mg/dl (8.6-10.4)
[2017-11-03 14:16] LABS: BASO % 0.2 % (0.0-2.0); HEMOGLOBIN 12.4 g/dL (12.0-18.0); LYMPH # 0.5 K/uL (1.0-4.3); LYMPH % 13.1 % (20.0-40.0); MEAN CELL VOLUME 87.4 fL (80.0-94.0); MEAN CORPUSCULAR HEMOGLOBIN 27.8 pg (27.0-31.0); MEAN CORPUSCULAR HGB CONC 31.9 g/dL (33.0-37.0); MEAN PLATELET VOLUME 8.8 fL (7.2-11.7); MONO # 0.1 K/uL (0.0-0.8); MONO % 2.4 % (0.0-10.0); NEUT # 3.4 K/uL (1.8-7.0); NEUT % 84.3 % (50.0-75.0); NRBC % 0.4 % (0.0-2.0); RBC 4.44 Mil/uL (4.40-5.90); RED CELL DISTRIBUTION WIDTH 15.6 % (11.5-14.5); WHITE BLOOD COUNT 4.1 K/uL (4.8-10.8)
--- NOTE | 2017-11-03 14:38 | CP.PCM.CON ---
History of Present Illness - History of Present Illness History of Present Illness: Patient is a 67 year old male with a PMH of HTN, CAD s/p CABG, atrial fibrillation, CHF, COPD, gout, DM, back injury, basilar aneurysm, delusional disorder. Patient was brought to the ED by his after visiting the clinic. Patient's states he had a cough productive of clear sputum, JUSTIN, lower extremity edema, falling asleep easily, and lips turning blue. Currently, patient is examined sitting in chair. Patient denies shortness of breath but complains of productive cough and lower extremity edema. Patient has rhonchi and wheezing. Home medications: advair, lasix, lantus, amlodipine, ASA, clopidogrel, allopurinol, glimiperide, clonidine, metoprolol, alprazolam. CXR 11/02: left apical and right basilar opacities. possible multifocal pneumonia , small right pleural effusion. CABG. cardiomegaly. EKG 11/02: sinus arrhythmia, RBBB, left anterior fascicular block, possible LVH. Labs - Influenza A positive. - BNP 11/02: 2,630 Urinalysis: clear, straw-colored. pH 5.0. +3 protein, +1 glucose. Negative for ketones, blood, nitrate, bilirubin, urobilogen, leukocyte esterase. WBC <1, RBC= 1, bacteria rare. Assessment/Plan: 1. CHF exacerbation - acute vs Pneumonia - Lasix - Zosyn 2. Influenza - Oseltamivir, supportive care 3. Dyspnea - acute - Solu-medrol - Spiriva Past Patient History - Infectious Disease Hx of Infectious Diseases: None - Past Medical History & Family History Past Medical History?: Yes - Past Social History Smoking Status: Former Smoker - CARDIAC Hx Cardiac Disorders: Yes Hx Congestive Heart Failure: Yes Hx Hypercholesterolemia: Yes Hx Hypertension: Yes - PULMONARY Hx Respiratory Disorders: Yes Hx Chronic Obstructive Pulmonary Disease (COPD): Yes - NEUROLOGICAL Hx Neurological Disorder: No Other/Comment: stroke 2012 - HEENT Hx HEENT Problems: No - RENAL Hx Chronic Kidney Disease: Yes - ENDOCRINE/METABOLIC Hx Endocrine Disorders: Yes Hx Diabetes Mellitus Type 2: Yes - HEMATOLOGICAL/ONCOLOGICAL Hx Blood Disorders: No - INTEGUMENTARY Hx Dermatological Problems: No - MUSCULOSKELETAL/RHEUMATOLOGICAL Hx Musculoskeletal Disorders: Yes Hx Falls: Yes - GASTROINTESTINAL Hx Gastrointestinal Disorders: No - GENITOURINARY/GYNECOLOGICAL Hx Genitourinary Disorders: No - PSYCHIATRIC Hx Psychophysiologic Disorder: No Hx Substance Use: No - SURGICAL HISTORY Hx Coronary Artery Bypass Graft: Yes (2006) Other/Comment: triple by pass 2006 - ANESTHESIA Hx Anesthesia: Yes Meds Allergies/Adverse Reactions: Allergies Allergy/AdvReac Type Severity Reaction Status Date / Time No Known Allergies Allergy Verified 07/02/17 14:39 - Medications Medications: Current Medications Allopurinol (Zyloprim) 100 mg PO BID [facility] Last Admin: 11/03/17 10:25 Dose: 100 mg Clonidine HCl (Catapres) 0.1 mg PO BID [facility] Last Admin: 11/03/17 13:17 Dose: 0.1 mg Clopidogrel Bisulfate (Plavix) 75 mg PO DAILY [facility] Last Admin: 11/03/17 10:25 Dose: 75 mg Famotidine (Pepcid) 20 mg IVP Q12H [facility] Last Admin: 11/03/17 10:24 Dose: 20 mg Furosemide (Lasix) 40 mg IVP DAILY [facility] Last Admin: 11/03/17 10:25 Dose: 40 mg Heparin Sodium (Porcine) (Heparin) 5,000 units SC Q8 [facility] Last Admin: 11/03/17 13:16 Dose: 5,000 units Piperacillin Sod/Tazobactam Sod (Zosyn 3.375 Gm Iv Premix) 3.375 gm in 50 mls @ 100 mls/hr IVPB Q8H [facility] Last Admin: 11/03/17 10:24 Dose: 100 mls/hr Insulin Glargine (Lantus) 20 unit SC DAILY [facility] Last Admin: 11/03/17 10:26 Dose: 20 u Losartan Potassium (Cozaar) 100 mg PO DAILY [facility] Last Admin: 11/03/17 10:25 Dose: 100 mg Methylprednisolone (Solu-Medrol) 60 mg IVP Q6 [facility] Last Admin: 11/03/17 13:15 Dose: 60 mg Metoprolol Succinate (Toprol Xl) 50 mg PO DAILY [facility] Last Admin: 11/03/17 10:24 Dose: 50 mg [id number] Ethyl Esters (Lovaza) 2 gm PO BID [facility] Last Admin: 11/03/17 10:24 Dose: 2 gm Oseltamivir Phosphate (Tamiflu Susp) 30 mg PO BID [facility] Stop: 11/08/17 09:57 Last Admin: 11/03/17 10:49 Dose: 30 mg Rosuvastatin Calcium (Crestor) 20 mg PO HS [facility] Last Admin: 11/02/17 21:31 Dose: 20 mg Fluticasone/Salmeterol (Advair Diskus 250/50) 1 puff INH RQ12 [facility] Last Admin: 11/03/17 08:02 Dose: 3 mg Tiotropium [place] (Spiriva) 18 mcg INH RQ24 [facility] Last Admin: 11/03/17 08:02 Dose: 18 mcg Results - Vital Signs Recent Vital Signs: Last Vital Signs Temp 98.0 F 11/03/17 07:16 Pulse 79 11/03/17 07:16 Resp 20 11/03/17 07:16 BP 175/95 H 11/03/17 10:25 Pulse Ox 95 11/03/17 07:16 - Labs Result Diagrams: 11/03/17 14:06 11/03/17 11:38 Labs: Laboratory Results - last 24 hr 11/02/17 11/02/17 11/02/17 15:50 15:50 15:50 WBC 6.1 RBC 4.22 L Hgb 11.8 L Hct 36.6 MCV 86.7 MCH 28.0 MCHC 32.3 L RDW 15.5 H Plt Count 273 MPV 8.2 Neut % (Auto) 71.4 Lymph % (Auto) 18.5 L [place] % (Auto) 6.6 Eos % (Auto) 3.3 Baso % (Auto) 0.2 Neut # (Auto) 4.4 Lymph # (Auto) 1.1 [place] # (Auto) 0.4 Eos # (Auto) 0.2 Baso # (Auto) 0.0 PT 12.5 H INR 1.1 APTT 38 H Puncture Site pCO2 pO2 HCO3 ABG pH ABG Total CO2 ABG O2 Saturation ABG Base Excess Luis [place] Test ABG Potassium A-a O2 Difference Respiratory Index Glucose Lactate Vent Mode FiO2 Inspiratory BiPAP Expiratory BiPAP Sodium 139 Potassium 4.0 Chloride 103 Carbon Dioxide 26 Anion Gap 14 BUN 31 H Creatinine 1.8 H Est GFR ( Amer) 46 Est GFR (Non-Af Amer) 38 POC Glucose (mg/dL) Random Glucose 139 H Calcium 8.5 L Magnesium 2.3 Total Bilirubin 0.4 AST 31 ALT 26 Alkaline Phosphatase 92 Troponin I 0.0890 NT-Pro-B Natriuret Pep 2630 H Total Protein 7.5 Albumin 3.5 Globulin 4.0 H Albumin/Globulin Ratio 0.9 L Arterial Blood Potassium Urine Color Urine Clarity Urine pH Ur Specific [place] Urine Protein Urine Glucose (UA) Urine Ketones Urine Blood Urine Nitrate Urine Bilirubin Urine Urobilinogen Ur Leukocyte Esterase Urine WBC (Auto) Urine RBC (Auto) Urine Bacteria Influenza Typ A,B (EIA) 11/02/17 11/02/17 11/02/17 16:40 16:50 16:51 WBC RBC Hgb Hct MCV MCH MCHC RDW Plt Count MPV Neut % (Auto) Lymph % (Auto) [place] % (Auto) Eos % (Auto) Baso % (Auto) Neut # (Auto) Lymph # (Auto) [place] # (Auto) Eos # (Auto) Baso # (Auto) PT INR APTT Puncture Site Rra pCO2 53 H pO2 79 L HCO3 26.3 ABG pH 7.34 L ABG Total CO2 30.2 H ABG O2 Saturation 96.6 ABG Base Excess 1.8 Luis [place] Test Yes ABG Potassium 3.9 A-a O2 Difference 69.0 Respiratory Index 0.9 Glucose 131 H Lactate 0.6 L Vent Mode Bipap FiO2 30.0 Inspiratory BiPAP 10 Expiratory BiPAP 5 Sodium 142.0 Potassium Chloride 111.0 H Carbon Dioxide Anion Gap BUN Creatinine Est GFR ( Amer) Est GFR (Non-Af Amer) POC Glucose (mg/dL) Random Glucose Calcium Magnesium Total Bilirubin AST ALT Alkaline Phosphatase Troponin I NT-Pro-B Natriuret Pep Total Protein Albumin Globulin Albumin/Globulin Ratio Arterial Blood Potassium 3.9 Urine Color Straw Urine Clarity Clear Urine pH 5.0 Ur Specific [place] 1.011 Urine Protein 3+ H Urine Glucose (UA) 1+ H Urine Ketones Negative Urine Blood Negative Urine Nitrate Negative Urine Bilirubin Negative Urine Urobilinogen Normal Ur Leukocyte Esterase Neg Urine WBC (Auto) < 1 Urine RBC (Auto) 1 Urine Bacteria Rare Influenza Typ A,B (EIA) Pos for influenza a H 11/02/17 11/03/17 11/03/17 21:00 06:16 11:26 WBC RBC Hgb Hct MCV MCH MCHC RDW Plt Count MPV Neut % (Auto) Lymph % (Auto) [place] % (Auto) Eos % (Auto) Baso % (Auto) Neut # (Auto) Lymph # (Auto) [place] # (Auto) Eos # (Auto) Baso # (Auto) PT INR APTT Puncture Site pCO2 pO2 HCO3 ABG pH ABG Total CO2 ABG O2 Saturation ABG Base Excess Luis [place] Test ABG Potassium A-a O2 Difference Respiratory Index Glucose Lactate Vent Mode FiO2 Inspiratory BiPAP Expiratory BiPAP Sodium Potassium Chloride Carbon Dioxide Anion Gap BUN Creatinine Est GFR ( Amer) Est GFR (Non-Af Amer) POC Glucose (mg/dL) 79 215 H 374 H Random Glucose Calcium Magnesium Total Bilirubin AST ALT Alkaline Phosphatase Troponin I NT-Pro-B Natriuret Pep Total Protein Albumin Globulin Albumin/Globulin Ratio Arterial Blood Potassium Urine Color Urine Clarity Urine pH Ur Specific [place] Urine Protein Urine Glucose (UA) Urine Ketones Urine Blood Urine Nitrate Urine Bilirubin Urine Urobilinogen Ur Leukocyte Esterase Urine WBC (Auto) Urine RBC (Auto) Urine Bacteria Influenza Typ A,B (EIA) 11/03/17 11/03/17 11:38 14:06 WBC 4.1 L RBC 4.44 Hgb 12.4 Hct 38.8 MCV 87.4 MCH 27.8 MCHC 31.9 L RDW 15.6 H Plt Count 280 MPV 8.8 Neut % (Auto) 84.3 H Lymph % (Auto) 13.1 L [place] % (Auto) 2.4 Eos % (Auto) 0.0 Baso % (Auto) 0.2 Neut # (Auto) 3.4 Lymph # (Auto) 0.5 L [place] # (Auto) 0.1 Eos # (Auto) 0.0 Baso # (Auto) 0.0 PT INR APTT Puncture Site pCO2 pO2 HCO3 ABG pH ABG Total CO2 ABG O2 Saturation ABG Base Excess Luis Carlos Test ABG Potassium A-a O2 Difference Respiratory Index Glucose Lactate Vent Mode FiO2 Inspiratory BiPAP Expiratory BiPAP Sodium 138 Potassium 4.7 Chloride 101 Carbon Dioxide 25 Anion Gap 17 BUN 34 H Creatinine 1.9 H Est GFR ( Amer) 43 Est GFR (Non-Af Amer) 36 POC Glucose (mg/dL) Random Glucose 406 H* D Calcium 8.9 Magnesium Total Bilirubin 0.6 AST 37 ALT 19 L D Alkaline Phosphatase 92 Troponin I NT-Pro-B Natriuret Pep Total Protein 7.4 Albumin 3.5 Globulin 4.0 H Albumin/Globulin Ratio 0.9 L Arterial Blood Potassium Urine Color Urine Clarity Urine pH Ur Specific [place] Urine Protein Urine Glucose (UA) Urine Ketones Urine Blood Urine Nitrate Urine Bilirubin Urine Urobilinogen Ur Leukocyte Esterase Urine WBC (Auto) Urine RBC (Auto) Urine Bacteria Influenza Typ A,B (EIA)
[2017-11-03] MEDS ORDERED: (Novolin R) Insulin Human Regular 100 units/ml vial SC SCH (16:30)
[2017-11-03] MEDS ORDERED: (Novolog Mix 70/30) Insulin Aspart/Insulin Aspar 100 units/ml SC SCH (16:30)
[2017-11-03] MEDS: (Novolog) Insulin Aspart, Recombinant 100 u/ml 10 ml vial SC SCH ×2 (18:35→21:40)
[2017-11-04] MEDS: Piperacillin/Tazobact 3.375 GM in Sodium Chloride 100 ML IVPB SCH ×3 (00:40→17:15)
[2017-11-04 07:44] LABS: BASO % 0.1 % (0.0-2.0); HEMOGLOBIN 11.9 g/dL (12.0-18.0); LYMPH # 0.8 K/uL (1.0-4.3); LYMPH % 8.8 % (20.0-40.0); MEAN CELL VOLUME 86.5 fL (80.0-94.0); MEAN CORPUSCULAR HEMOGLOBIN 27.8 pg (27.0-31.0); MEAN CORPUSCULAR HGB CONC 32.2 g/dL (33.0-37.0); MEAN PLATELET VOLUME 8.8 fL (7.2-11.7); MONO # 0.2 K/uL (0.0-0.8); MONO % 1.7 % (0.0-10.0); NEUT # 8.6 K/uL (1.8-7.0); NEUT % 89.4 % (50.0-75.0); PLATELET COUNT 284 K/uL (130-400); RBC 4.28 Mil/uL (4.40-5.90); RED CELL DISTRIBUTION WIDTH 15.9 % (11.5-14.5); WHITE BLOOD COUNT 9.6 K/uL (4.8-10.8)
[2017-11-04 08:06] LABS: ALBUMIN 3.5 g/dL (3.5-5.0); CALCIUM 8.8 mg/dl (8.6-10.4)
[2017-11-04] MEDS: (Novolog) Insulin Aspart, Recombinant 100 u/ml 10 ml vial SC SCH ×4 (09:00→22:47)
--- NOTE | 2017-11-04 09:24 | CP.PCM.PN ---
Subjective - Date & Time of Evaluation Date of Evaluation: 11/04/17 Time of Evaluation: 01:30 - Subjective Subjective: patient had episode of agitation yesterday - discussed with psychiatry- Glucose running high- on Steroid -on Insulin patient is very sleepy ,difficult to arouse, patient is very sensitive to the b benzo given during his agitation currently patient is on one and one , not in distress , breathing normally Objective - Vital Signs/Intake and Output Vital Signs (last 24 hours): Temp Pulse Resp BP Pulse Ox 97.4 F L 74 20 157/97 H 93 L 11/03/17 23:30 11/04/17 08:41 11/03/17 23:30 11/03/17 23:30 11/03/17 23:30 Intake and Output: 11/04/17 11/04/17 06:59 18:59 Intake Total 300 Balance 300 - Medications Medications: Current Medications Allopurinol (Zyloprim) 100 mg PO BID [facility] Last Admin: 11/03/17 17:45 Dose: 100 mg Alprazolam (Xanax) 0.25 mg PO BID PRN PRN Reason: Anxiety Stop: 11/10/17 20:06 Last Admin: 11/03/17 20:26 Dose: 0.25 mg Clonidine HCl (Catapres) 0.1 mg PO BID [facility] Last Admin: 11/03/17 17:45 Dose: 0.1 mg Clopidogrel Bisulfate (Plavix) 75 mg PO DAILY [facility] Last Admin: 11/03/17 10:25 Dose: 75 mg Famotidine (Pepcid) 20 mg IVP Q12H [facility] Last Admin: 11/03/17 21:41 Dose: 20 mg Furosemide (Lasix) 40 mg IVP DAILY [facility] Last Admin: 11/03/17 10:25 Dose: 40 mg Heparin Sodium (Porcine) (Heparin) 5,000 units SC Q8 [facility] Last Admin: 11/04/17 06:22 Dose: 5,000 units Hydralazine HCl (Apresoline) 25 mg PO Q8H [facility] Last Admin: 11/04/17 00:39 Dose: 25 mg Piperacillin Sod/Tazobactam (Sod 3.375 gm/ Sodium Chloride) 100 mls @ 100 mls/ hr IVPB Q8H [facility] Last Admin: 11/04/17 00:40 Dose: 100 mls/hr Insulin Aspart (Novolog) [address] [facility] PRN Reason: Protocol Last Admin: 11/03/17 21:40 Dose: 2 unit Insulin Glargine (Lantus) 28 unit SC DAILY [facility] Insulin Glargine (Lantus) 30 unit SC DAILY [facility] Losartan Potassium (Cozaar) 100 mg PO DAILY [facility] Last Admin: 11/03/17 10:25 Dose: 100 mg Methylprednisolone (Solu-Medrol) 60 mg IVP Q6 [facility] Last Admin: 11/04/17 06:22 Dose: 60 mg Methylprednisolone (Solu-Medrol) 40 mg IVP Q6 [facility] Metoprolol Tartrate (Lopressor) 50 mg PO BID [facility] Last Admin: 11/03/17 17:51 Dose: 50 mg [id number]-6-[id number] Ethyl Esters (Lovaza) 2 gm PO BID [facility] Last Admin: 11/03/17 17:46 Dose: 2 gm Oseltamivir Phosphate (Tamiflu Susp) 30 mg PO BID [facility] Stop: 11/08/17 09:57 Last Admin: 11/03/17 17:46 Dose: 30 mg Rosuvastatin Calcium (Crestor) 20 mg PO HS [facility] Last Admin: 11/03/17 21:44 Dose: 20 mg Fluticasone/Salmeterol (Advair Diskus 250/50) 1 puff INH RQ12 [facility] Last Admin: 11/03/17 21:14 Dose: 1 mg Tiotropium [place] (Spiriva) 18 mcg INH RQ24 [facility] Last Admin: 11/03/17 08:02 Dose: 18 mcg - Labs Labs: 11/04/17 07:11 11/04/17 07:11 PT 12.5 SECONDS (9.7-12.2) H 11/02/17 15:50 INR 1.1 11/02/17 15:50 APTT 38 SECONDS (21-34) H 11/02/17 15:50 - Constitutional Appears: Non-toxic, No Acute Distress ( fifficult to arouse post benzo) - Head Exam Head Exam: ATRAUMATIC, NORMOCEPHALIC - Eye Exam Eye Exam: Normal appearance - ENT Exam ENT Exam: Mucous Membranes Moist - Neck Exam Neck Exam: Full ROM. absent: Tenderness - Respiratory Exam Respiratory Exam: Decreased Breath Sounds, Wheezes (very small ) - Cardiovascular Exam Cardiovascular Exam: REGULAR RHYTHM - GI/Abdominal Exam GI & Abdominal Exam: Soft, Normal Bowel Sounds. absent: Distended, Tenderness - Neurological Exam Neurological Exam: Altered - Skin Skin Exam: Intact, Normal Color Assessment and Plan - Assessment and Plan (Free Text) Assessment: Patient with CAD admitted for CHF and COPD exacerbation , was on antibiotic and steroid, has some im[provemnet , became agitated delusional and was given meds to calm patient down, Drowsiness- post benzo, further monitoring , further evaluation if deterioarte keep one on one keep antibiotic and other medications- BP to monitor
[2017-11-04] MEDS: Oseltamivir 6 MG/ML PO SCH ×2 (09:33→17:15)
[2017-11-04] MEDS: (Lantus) Insulin Glargine, Recombinant SC SCH (09:34)
[2017-11-04] MEDS: Omega-3-Acid Ethyl Esters 1 GM Cap PO SCH ×2 (09:35→17:15)
[2017-11-04] MEDS ORDERED: (Lantus) Insulin Glargine, Recombinant SC SCH (10:00)
--- NOTE | 2017-11-04 10:26 | CT ---
PROCEDURE: CT Chest without contrast HISTORY: sob, hypoxia COMPARISON: 07/02/2017 TECHNIQUE: Contiguous axial images were obtained through the chest without intravenous contrast enhancement. Sagittal and coronal reconstructions were performed. Radiation dose (DLP): 1479.28 mGy-cm. This CT exam was performed using one or more of the following dose reduction techniques: Automated exposure control, adjustment of the mA and/or kV according to patient size, and/or use of iterative reconstruction technique. FINDINGS: LUNGS: Examination technically limited due to respiratory motion artifact. There is patchy opacity in the left upper lobe. There is rounded opacity, likely consolidation in the left apex,l approximately 1.7 cm diameter, new since prior. Rule out neoplasm. Followup to clearing. There is dense consolidation in the apical posterior segment of the left upper lobe. No significant right-sided opacity. MEDIASTINUM: Aneurysmal dilatation of the ascending thoracic aorta to a diameter of 4.6 cm. There is mild dilatation of the main pulmonary artery to a diameter of 3.3 cm. This may correlate with pulmonary arterial hypertension. The heart is moderately to severely enlarged. The patient is status post CABG. There is no pericardial effusion. No lymphadenopathy. PLEURA: Small left pleural effusion. There is pleural fluid within the right major and minor fissures. No pneumothorax. BONES: Anterior wedge compression deformity of the T4 vertebral body, unchanged from 07/02/2017. Postsurgical deformity of the right 5th and 6th ribs. UPPER ABDOMEN: Cholelithiasis without evidence of cholecystitis OTHER FINDINGS: None. IMPRESSION: Multifocal left-sided consolidation. Followup to clearing to rule out underlying neoplasm. Left pleural effusion and pleural fluid within right major and minor fissures. Marked cardiomegaly with evidence of CABG. Aneurysmal dilatation of the ascending thoracic aorta and dilatation of the main pulmonary artery. Old anterior wedge compression deformity of the T4 vertebra. Postsurgical deformity of right 5th and 6th ribs. Cholelithiasis.
[2017-11-04] MEDS: Tiotropium 18 mcg Cap For Inhalation INH SCH (10:37)
[2017-11-04] MEDS: Fluticasone-Salmeterol 250-50mcg Diskus INH SCH ×2 (10:38→20:36)
[2017-11-04 10:57] LABS: LYMPHOCYTE 8 % (20-40); NEUTROPHIL 92 % (50-75); TOTAL CELLS COUNTED 100
[2017-11-04 10:58] LABS: PLATELET ESTIMATE NORMAL (NORMAL)
[2017-11-04 11:00] LABS: HYPOCHROMIC SLIGHT; POLYCHROMIC SLIGHT
--- NOTE | 2017-11-04 12:36 | CARD ---
APPROVED REPORT EKG Measurement Heart [id number] MI [id number] [id number] <Conclusion> Sinus rhythm Right bundle branch block Left anterior fascicular block Bifascicular block Minimal voltage criteria for LVH, may be normal variant Abnormal ECG
[2017-11-04 14:31] LABS: ABG ALLEN TEST POS; ARTERIAL BLOOD GAS HCO3 29.2 mmol/L (21-28); ARTERIAL BLOOD GAS HEMOGLOBIN 11.3 g/dL (11.7-17.4); ARTERIAL BLOOD GAS O2 SAT 95.5 % (95-98); ARTERIAL BLOOD GAS PCO2 59 mm/Hg (35-45); ARTERIAL BLOOD GAS PH 7.35 (7.35-7.45); ARTERIAL BLOOD GAS PO2 70 mm/Hg (80-100); ARTERIAL BLOOD GAS TCO2 34.4 mmol/L (22-28)
--- NOTE | 2017-11-04 15:59 | CP.PCM.PN ---
Subjective - Date & Time of Evaluation Date of Evaluation: 11/04/17 Time of Evaluation: 13:00 - Subjective Subjective: Patient seen and examined today. Patient unresponsive to efforts to wake him up (12pm). As per nursing staff, patient was given ativan at 4am. Patient exhibiting shallow breathing. CT chest 11/04: multifocal left-sided consolidation. Followup to clearning to rule out underlying neoplasm. Left pleural effusion and pleural fluid within right major and minor fissures. Marked cardiomegaly with evidence of CABG. Aneurysmal dilation of the ascending thoracic aorta and dilatation of the main pulmonary artery. Old anterior wedge compression deformity of the T4 vertebra. Postsurgical deformity of right 5th and 6th ribs. Cholelithiasis. Objective - Vital Signs/Intake and Output Vital Signs (last 24 hours): Temp Pulse Resp BP Pulse Ox 97.4 F L 74 20 153/91 H 93 L 11/03/17 23:30 11/04/17 08:41 11/03/17 23:30 11/04/17 09:34 11/03/17 23:30 Intake and Output: 11/04/17 11/04/17 06:59 18:59 Intake Total 300 Balance 300 - Medications Medications: Current Medications Allopurinol (Zyloprim) 100 mg PO BID [facility] Last Admin: 11/04/17 09:35 Dose: 100 mg Alprazolam (Xanax) 0.25 mg PO BID PRN PRN Reason: Anxiety Stop: 11/10/17 20:06 Last Admin: 11/03/17 20:26 Dose: 0.25 mg Clonidine HCl (Catapres) 0.1 mg PO BID [facility] Last Admin: 11/04/17 09:35 Dose: 0.1 mg Clopidogrel Bisulfate (Plavix) 75 mg PO DAILY [facility] Last Admin: 11/04/17 09:35 Dose: 75 mg Famotidine (Pepcid) 20 mg IVP Q12H [facility] Last Admin: 11/04/17 09:34 Dose: 20 mg Furosemide (Lasix) 40 mg IVP DAILY [facility] Last Admin: 11/04/17 09:34 Dose: 40 mg Heparin Sodium (Porcine) (Heparin) 5,000 units SC Q8 [facility] Last Admin: 11/04/17 13:43 Dose: 5,000 units Hydralazine HCl (Apresoline) 25 mg PO Q8H [facility] Last Admin: 11/04/17 09:35 Dose: 25 mg Piperacillin Sod/Tazobactam (Sod 3.375 gm/ Sodium Chloride) 100 mls @ 100 mls/ hr IVPB Q8H [facility] Last Admin: 11/04/17 09:33 Dose: 100 mls/hr Insulin Aspart (Novolog) 0 unit SC ACHS [facility] PRN Reason: Protocol Last Admin: 11/04/17 12:55 Dose: 6 unit Insulin Glargine (Lantus) 28 unit SC DAILY [facility] Last Admin: 11/04/17 09:35 Dose: Not Given Insulin Glargine (Lantus) 30 unit SC DAILY [facility] Last Admin: 11/04/17 09:34 Dose: 30 units Losartan Potassium (Cozaar) 100 mg PO DAILY [facility] Last Admin: 11/04/17 09:35 Dose: 100 mg Methylprednisolone (Solu-Medrol) 60 mg IVP Q6 [facility] Last Admin: 11/04/17 06:22 Dose: 60 mg Methylprednisolone (Solu-Medrol) 40 mg IVP Q6 [facility] Metoprolol Tartrate (Lopressor) 50 mg PO BID [facility] Last Admin: 11/04/17 09:35 Dose: 50 mg Ygfrb-2-Olat Ethyl Esters (Lovaza) 2 gm PO BID [facility] Last Admin: 11/04/17 09:35 Dose: 2 gm Oseltamivir Phosphate (Tamiflu Susp) 30 mg PO BID [facility] Stop: 11/08/17 09:57 Last Admin: 11/04/17 09:33 Dose: 30 mg Rosuvastatin Calcium (Crestor) 20 mg PO HS [facility] Last Admin: 11/03/17 21:44 Dose: 20 mg Fluticasone/Salmeterol (Advair Diskus 250/50) 1 puff INH RQ12 [facility] Last Admin: 11/04/17 10:38 Dose: 1 puff Tiotropium [place] (Spiriva) 18 mcg INH RQ24 [facility] Last Admin: 11/04/17 10:37 Dose: 18 mcg - Labs Labs: 11/04/17 07:11 11/04/17 07:11 PT 12.5 SECONDS (9.7-12.2) H 11/02/17 15:50 INR 1.1 11/02/17 15:50 APTT 38 SECONDS (21-34) H 02/12/18 15:50 - Head Exam Head Exam: ATRAUMATIC, NORMOCEPHALIC - ENT Exam ENT Exam: Mucous Membranes Moist - Neck Exam Neck Exam: Normal Inspection - Respiratory Exam Respiratory Exam: Rales, Rhonchi - Cardiovascular Exam Cardiovascular Exam: REGULAR RHYTHM - GI/Abdominal Exam GI & Abdominal Exam: Soft, Normal Bowel Sounds - Extremities Exam Extremities Exam: Normal Inspection Assessment and Plan (1) Pneumonia Assessment & Plan: 1Pneumonia - Zosyn ?- Follow up to underlying neoplasm 2. Influenza - Oseltamivir, supportive care 3. Dyspnea - acute - Solu-medrol - Spiriva - Advair Status: Acute (2) Influenza A Status: Acute
[2017-11-04] MEDS: MethylPREDNISolone 40 mg Vial IVP SCH (17:17)
[2017-11-04] MEDS: Azithromycin 500 MG in Sodium Chloride 0.9% 250 ML IVPB SCH (18:58)
--- NOTE | 2017-11-04 23:36 | CP.PCM.PN ---
Subjective - Date & Time of Evaluation Date of Evaluation: 11/04/17 Time of Evaluation: 19:40 - Subjective Subjective: Patient seen and evaluated Scheduled for cardiac cath at 3pm tomorrow Physical Examination - Constitutional Appears: Non-toxic, No Acute Distress - Head Exam Head Exam: ATRAUMATIC, NORMAL INSPECTION, NORMOCEPHALIC - Eye Exam Eye Exam: EOMI, PERRL - ENT Exam ENT Exam: Mucous Membranes Moist - Neck Exam Neck Exam: Full ROM - Respiratory Exam Respiratory Exam: absent: Wheezes - Cardiovascular Exam Cardiovascular Exam: +S1, +S2 - GI/Abdominal Exam GI & Abdominal Exam: Soft, Normal Bowel Sounds - Extremities Exam Extremities Exam: Normal Capillary Refill, Pedal Edema (1+ pitting). absent: Tenderness - Psychiatric Exam Psychiatric exam: Flat Affect - Skin Skin Exam: Dry, Normal Color, Warm Objective - Vital Signs/Intake and Output Vital Signs (last 24 hours): Temp Pulse Resp BP Pulse Ox 98.2 F 66 20 129/85 97 11/04/17 20:07 11/04/17 20:07 11/04/17 20:07 11/04/17 20:07 11/04/17 20:07 Intake and Output: 11/04/17 11/05/17 18:59 06:59 Intake Total 600 Balance 600 - Medications Medications: Current Medications Allopurinol (Zyloprim) 100 mg PO BID [facility] Last Admin: 11/04/17 17:15 Dose: 100 mg Clonidine HCl (Catapres) 0.1 mg PO BID [facility] Last Admin: 11/04/17 17:15 Dose: 0.1 mg Clopidogrel Bisulfate (Plavix) 75 mg PO DAILY [facility] Last Admin: 11/04/17 09:35 Dose: 75 mg Famotidine (Pepcid) 20 mg IVP Q12H [facility] Last Admin: 11/04/17 21:36 Dose: 20 mg Furosemide (Lasix) 40 mg IVP DAILY [facility] Last Admin: 11/04/17 09:34 Dose: 40 mg Heparin Sodium (Porcine) (Heparin) 5,000 units SC Q8 [facility] Last Admin: 11/04/17 21:35 Dose: 5,000 units Hydralazine HCl (Apresoline) 25 mg PO Q8H [facility] Last Admin: 11/04/17 17:24 Dose: 25 mg Piperacillin Sod/Tazobactam (Sod 3.375 gm/ Sodium Chloride) 100 mls @ 100 mls/ hr IVPB Q8H [facility] Last Admin: 11/04/17 17:15 Dose: 100 mls/hr Azithromycin 500 mg/ Sodium (Chloride) 250 mls @ 250 mls/hr IVPB Q24H [facility] Last Admin: 11/04/17 18:58 Dose: 250 mls/hr Insulin Aspart (Novolog) 0 unit SC ACHS [facility] PRN Reason: Protocol Last Admin: 11/04/17 22:47 Dose: Not Given Insulin Glargine (Lantus) 28 unit SC DAILY [facility] Last Admin: 11/04/17 09:35 Dose: Not Given Insulin Glargine (Lantus) 30 unit SC DAILY [facility] Last Admin: 11/04/17 09:34 Dose: 30 units Lorazepam (Ativan) 1 mg IVP BID PRN PRN Reason: Agitation Losartan Potassium (Cozaar) 100 mg PO DAILY [facility] Last Admin: 11/04/17 09:35 Dose: 100 mg Methylprednisolone (Solu-Medrol) 60 mg IVP Q6 [facility] Last Admin: 11/04/17 06:22 Dose: 60 mg Methylprednisolone (Solu-Medrol) 40 mg IVP Q6 [facility] Last Admin: 11/04/17 17:17 Dose: 40 mg Metoprolol Tartrate (Lopressor) 50 mg PO BID [facility] Last Admin: 11/04/17 17:15 Dose: 50 mg Ezzpj-6-Axke Ethyl Esters (Lovaza) 2 gm PO BID [facility] Last Admin: 11/04/17 17:15 Dose: 2 gm Oseltamivir Phosphate (Tamiflu Susp) 30 mg PO BID [facility] Stop: 11/08/17 09:57 Last Admin: 11/04/17 17:15 Dose: 30 mg Rosuvastatin Calcium (Crestor) 20 mg PO HS [facility] Last Admin: 11/04/17 21:35 Dose: 20 mg Tiotropium [place] (Spiriva) 18 mcg INH RQ24 [facility] Last Admin: 11/04/17 10:37 Dose: 18 mcg - Labs Labs: 11/04/17 07:11 11/04/17 07:11 PT 12.5 SECONDS (9.7-12.2) H 11/02/17 15:50 INR 1.1 11/02/17 15:50 APTT 38 SECONDS (21-34) H 11/02/17 15:50 Assessment and Plan - Assessment and Plan (Free Text) Assessment: Elevated Troponin Assessment and Plan: Mildly elevated but later trended down: It could have been due to ischemic changes but may also be due to CHF exacerbation as well No ST segment changes appreciated on EKG 07/06 Cont to monitor Status: Acute CHF exacerbation Assessment and Plan: On IV Lasix as nedded ECHO: EF 65%, mild calcified thickening of aortic valve. Refer to complete report Status: Acute Hypertension Assessment and Plan: On Metoprolol, Cozaar and Hydralazine Status: Chronic History of coronary artery bypass graft Assessment and Plan: Crestor 10 mg PO HS On Metoprolol BID, Plavix daily Status: Chronic History of diabetes mellitus Assessment and Plan: Accuchecks Sliding scale Hold Parameters in place Status: Chronic History of TIA (transient ischemic attack) Assessment and Plan: Neuro on the case. See above. Cont to monitor Status: Acute Hypercholesterolemia Assessment and Plan: On Crestor Would benefit from diet and exercise modifications following current hospital course Status: Chronic Family history of cerebral aneurysm Assessment and Plan: Strong family history. Status: Acute Prophylactic measure Assessment and Plan: SCDs contraindicated due to swelling Heparin SC Q12 Pepcid 20 mg IV daily Status: Acute
[2017-11-05] MEDS: MethylPREDNISolone 40 mg Vial IVP SCH ×6 (01:00→23:00)
[2017-11-05] MEDS: Piperacillin/Tazobact 3.375 GM in Sodium Chloride 100 ML IVPB SCH ×3 (02:00→17:52)
--- NOTE | 2017-11-05 02:19 | CON ---
DATE: 11/04/2017 CHIEF COMPLAINT AND REASON FOR CONSULTATION: The patient is referred by Dr. Paola Adams for co-management and medical evaluation of increasing periods of confusion. The patient was very combative yesterday and wants to go home. Also, has history of delusional disorder and anxiety. HISTORY OF PRESENT ILLNESS: This is a 67-year-old male of [place] descent who lives with his family. The patient is admitted here for shortness of breath, dyspnea on exertion, and admitted for diagnosis of exacerbation of CHF. The patient was referred for co-management as yesterday he was having increasing bouts of agitation. According to the nurse, they called 5 times Kana Butts because he wanted to leave. Patient also tried to hit one of the staffs with the oxygen tube. He was given earlier Xanax 0.25 mg p.r.n. and in the banking consultant, he was given Ativan. Today, he is very drowsy, could hardly talk and sleepy. The patient also one-to-one watch. The patient has a history of anxiety disorder secondary to medical problems as well as chronic delusional disorder of morbid jealousy. The patient has a history of Pete syndrome and is currently accusing his of having an affair. Today he is very drowsy, could hardly talks, but not agitated. He is currently looking for his , but today he is somebody watching him. PAST MEDICAL HISTORY: History of anxiety, history of recurrent delirium in the past. Yesterday, he was somewhat hypoxic. His blood sugar was elevated as well as history of delusional disorder. He was taking some psych meds before, but the patient seems to have tolerated best with Xanax. He was seen in my office a few weeks ago. History of hypertension, history of CABG, history of CAD and atrial fibrillation, CHF, COPD, history of gout, history of basilar aneurysm, history of back injury. DRUG AND ALCOHOL HISTORY: Denies any. ALLERGIES: NO KNOWN DRUG ALLERGIES. PSYCHOSOCIAL HISTORY: The patient is retired and lives with his and his children. CURRENT MEDICATIONS: List of current medication includes Advair, Apresoline, Catapres, Cozaar, Crestor, Lantus, Lovaza, Pepcid. The patient is on piperacillin and tazobactam, Solu-Medrol, Plavix, Xanax 0.5 mg p.o. b.i.d. p.r.n., and Zyloprim. REVIEW OF SYSTEMS: The patient is sleepy, arousable, lying in bed on one-to-one watch, could hardly converse. He was earlier agitated, but now very drowsy. He is not in acute respiratory distress. Responds with minimal answers. Review of systems cannot be fully assessed as he is too drowsy. PHYSICAL EXAMINATION VITAL SIGNS: Temperature 97.4, pulse 74, blood pressure 153/91, respirations 20, oxygen saturation 93% on room air. MENTAL STATUS EXAMINATION: Elderly male of [place] descent, very drowsy, but is arousable. Speech is slow. Affect is restricted. Mood dysphoric, oriented x 2. Thought process confused at times. Thought content, no overt psychosis. No suicidal ideation. Attention and memory seems to be limited. Insight and judgment is limited. Impulse control is guarded at this time. The patient has a history of delirium in the past and his mental status seems to be waxing and waning. LABORATORY DATA: On review of his labs; the patient's glucose was elevated yesterday, was 443, now it is 254. Potassium is 4.7, sodium is 139. Liver function tests are within normal limits. IMPRESSION: Delirium, metabolic encephalopathy secondary to his medical problems as well as history of anxiety disorder and history of chronic delusional disorder of morbid jealousy, type also known as Lejunior syndrome. PLAN AND RECOMMENDATIONS: The patient is seen, meds reviewed. Continue present management. We will just keep him on Xanax 0.25 mg p.o. b.i.d. for now. I do suggest that the patient should not be given double benzodiazepines especially as he is very sensitive to psychiatric medications. If we have to give IV Ativan, start with a low dose 0.5 and try not to give Xanax p.r.n. together as he is very drowsy.in the past, he is very sensitive to medication. Continue treatment plan as outlined. We will also keep the one-to-one for closer monitoring. Ren Kyle MD [facility] # [id number] MTDD
--- NOTE | 2017-11-05 07:07 | CP.PCM.CON ---
History of Present Illness - History of Present Illness History of Present Illness: CONSULT DICTATED PATIENT SEDATED LIMITED EXAM MILD RIGHT HEMIPARESIS - NEW /OLD CONTINUE THE PRESENT MANAGEMENT MRI/MRA FOR FOLLOW UP ON ANEURYSM. Past Patient History - Infectious Disease Hx of Infectious Diseases: None - Past Medical History & Family History Past Medical History?: Yes - Past Social History Smoking Status: Former Smoker - CARDIAC Hx Cardiac Disorders: Yes Hx Congestive Heart Failure: Yes Hx Hypercholesterolemia: Yes Hx Hypertension: Yes - PULMONARY Hx Respiratory Disorders: Yes Hx Chronic Obstructive Pulmonary Disease (COPD): Yes - NEUROLOGICAL Hx Neurological Disorder: No Other/Comment: stroke 2012 - HEENT Hx HEENT Problems: No - RENAL Hx Chronic Kidney Disease: Yes - ENDOCRINE/METABOLIC Hx Endocrine Disorders: Yes Hx Diabetes Mellitus Type 2: Yes - HEMATOLOGICAL/ONCOLOGICAL Hx Blood Disorders: No - INTEGUMENTARY Hx Dermatological Problems: No - MUSCULOSKELETAL/RHEUMATOLOGICAL Hx Musculoskeletal Disorders: Yes Hx Falls: Yes - GASTROINTESTINAL Hx Gastrointestinal Disorders: No - GENITOURINARY/GYNECOLOGICAL Hx Genitourinary Disorders: No - PSYCHIATRIC Hx Psychophysiologic Disorder: No Hx Substance Use: No - SURGICAL HISTORY Hx Coronary Artery Bypass Graft: Yes (2005) Other/Comment: triple by pass 2005 - ANESTHESIA Hx Anesthesia: Yes Meds Allergies/Adverse Reactions: Allergies Allergy/AdvReac Type Severity Reaction Status Date / Time No Known Allergies Allergy Verified 07/02/17 14:39 - Medications Medications: Current Medications Allopurinol (Zyloprim) 100 mg PO BID [facility] Last Admin: 11/04/17 17:15 Dose: 100 mg Clonidine HCl (Catapres) 0.1 mg PO BID [facility] Last Admin: 11/04/17 17:15 Dose: 0.1 mg Clopidogrel Bisulfate (Plavix) 75 mg PO DAILY [facility] Last Admin: 11/04/17 09:35 Dose: 75 mg Famotidine (Pepcid) 20 mg IVP Q12H [facility] Last Admin: 11/04/17 21:36 Dose: 20 mg Furosemide (Lasix) 40 mg IVP DAILY [facility] Last Admin: 11/04/17 09:34 Dose: 40 mg Heparin Sodium (Porcine) (Heparin) 5,000 units SC Q8 [facility] Last Admin: 11/05/17 06:07 Dose: 5,000 units Hydralazine HCl (Apresoline) 25 mg PO Q8H [facility] Last Admin: 11/05/17 02:27 Dose: Not Given Piperacillin Sod/Tazobactam (Sod 3.375 gm/ Sodium Chloride) 100 mls @ 100 mls/ hr IVPB Q8H [facility] Last Admin: 11/05/17 02:00 Dose: 100 mls/hr Azithromycin 500 mg/ Sodium (Chloride) 250 mls @ 250 mls/hr IVPB Q24H [facility] Last Admin: 11/04/17 18:58 Dose: 250 mls/hr Insulin Aspart (Novolog) 0 unit SC ACHS [facility] PRN Reason: Protocol Last Admin: 11/04/17 22:47 Dose: Not Given Insulin Glargine (Lantus) 28 unit SC DAILY [facility] Last Admin: 11/04/17 09:35 Dose: Not Given Insulin Glargine (Lantus) 30 unit SC DAILY [facility] Last Admin: 11/04/17 09:34 Dose: 30 units Lorazepam (Ativan) 1 mg IVP Q6H PRN PRN Reason: Anxiety Losartan Potassium (Cozaar) 100 mg PO DAILY [facility] Last Admin: 11/04/17 09:35 Dose: 100 mg Methylprednisolone (Solu-Medrol) 60 mg IVP Q6 [facility] Last Admin: 11/05/17 06:09 Dose: Not Given Methylprednisolone (Solu-Medrol) 40 mg IVP Q6 [facility] Last Admin: 11/05/17 06:07 Dose: 40 mg Metoprolol Tartrate (Lopressor) 50 mg PO BID [facility] Last Admin: 11/04/17 17:15 Dose: 50 mg [id number] Ethyl Esters (Lovaza) 2 gm PO BID [facility] Last Admin: 11/04/17 17:15 Dose: 2 gm Oseltamivir Phosphate (Tamiflu Susp) 30 mg PO BID [facility] Stop: 11/08/17 09:57 Last Admin: 11/04/17 17:15 Dose: 30 mg Rosuvastatin Calcium (Crestor) 20 mg PO HS [facility] Last Admin: 11/04/17 21:35 Dose: 20 mg Tiotropium [place] (Spiriva) 18 mcg INH RQ24 [facility] Last Admin: 11/04/17 10:37 Dose: 18 mcg Results - Vital Signs Recent Vital Signs: Last Vital Signs Temp 98.2 F 11/04/17 20:07 Pulse 88 11/05/17 05:14 Resp 20 11/04/17 20:07 BP 99/85 L 11/05/17 02:26 Pulse Ox 97 11/04/17 20:07 - Labs Result Diagrams: 11/04/17 07:11 11/04/17 07:11 Labs: Laboratory Results - last 24 hr 11/04/17 11/04/17 11/04/17 07:11 07:11 11:29 WBC 9.6 D RBC 4.28 L Hgb 11.9 L Hct 37.0 MCV 86.5 MCH 27.8 MCHC 32.2 L RDW 15.9 H Plt Count 284 MPV 8.8 Neut % (Auto) 89.4 H Lymph % (Auto) 8.8 L [place] % (Auto) 1.7 Eos % (Auto) 0.0 Baso % (Auto) 0.1 Neut # (Auto) 8.6 H Lymph # (Auto) 0.8 L [place] # (Auto) 0.2 Eos # (Auto) 0.0 Baso # (Auto) 0.0 Neutrophils % (Manual) 92 H Lymphocytes % (Manual) 8 L Monocytes % (Manual) TEST NOT PERFORMED Platelet Estimate Normal Polychromasia Slight Hypochromasia (manual) Slight Puncture Site pCO2 pO2 HCO3 ABG pH ABG Total CO2 ABG O2 Saturation ABG Base Excess ABG Hemoglobin ABG Carboxyhemoglobin POC ABG HHb (Measured) ABG Methemoglobin [place] Test Hgb O2 Saturation Liter Flow Sodium 139 Potassium 4.7 Chloride 100 Carbon Dioxide 29 Anion Gap 15 BUN 52 H Creatinine 3.0 H Est GFR ( Amer) 26 Est GFR (Non-Af Amer) 21 POC Glucose (mg/dL) 254 H Random Glucose 300 H Calcium 8.8 Total Bilirubin 0.4 AST 19 ALT 23 Alkaline Phosphatase 73 Total Protein 7.1 Albumin 3.5 Globulin 3.6 Albumin/Globulin Ratio 1.0 11/04/17 11/04/17 11/04/17 14:28 16:31 21:21 WBC RBC Hgb Hct MCV MCH MCHC RDW Plt Count MPV Neut % (Auto) Lymph % (Auto) [place] % (Auto) Eos % (Auto) Baso % (Auto) Neut # (Auto) Lymph # (Auto) [place] # (Auto) Eos # (Auto) Baso # (Auto) Neutrophils % (Manual) Lymphocytes % (Manual) Monocytes % (Manual) Platelet Estimate Polychromasia Hypochromasia (manual) Puncture Site Rra pCO2 59 H pO2 70 L HCO3 29.2 H ABG pH 7.35 ABG Total CO2 34.4 H ABG O2 Saturation 95.5 ABG Base Excess 5.6 H ABG Hemoglobin 11.3 L ABG Carboxyhemoglobin 2.2 H POC ABG HHb (Measured) 4.3 ABG Methemoglobin 1.3 [place] Test Pos Hgb O2 Saturation 92.2 L Liter Flow 2.0 Sodium Potassium Chloride Carbon Dioxide Anion Gap BUN Creatinine Est GFR ( Amer) Est GFR (Non-Af Amer) POC Glucose (mg/dL) 234 H 289 H Random Glucose Calcium Total Bilirubin AST ALT Alkaline Phosphatase Total Protein Albumin Globulin Albumin/Globulin Ratio 11/04/17 11/05/17 23:31 06:23 WBC RBC Hgb Hct MCV MCH MCHC RDW Plt Count MPV Neut % (Auto) Lymph % (Auto) [place] % (Auto) Eos % (Auto) Baso % (Auto) Neut # (Auto) Lymph # (Auto) [place] # (Auto) Eos # (Auto) Baso # (Auto) Neutrophils % (Manual) Lymphocytes % (Manual) Monocytes % (Manual) Platelet Estimate Polychromasia Hypochromasia (manual) Puncture Site pCO2 pO2 HCO3 ABG pH ABG Total CO2 ABG O2 Saturation ABG Base Excess ABG Hemoglobin ABG Carboxyhemoglobin POC ABG HHb (Measured) ABG Methemoglobin [place] Test Hgb O2 Saturation Liter Flow Sodium Potassium Chloride Carbon Dioxide Anion Gap BUN Creatinine Est GFR ( Amer) Est GFR (Non-Af Amer) POC Glucose (mg/dL) 287 H 221 H Random Glucose Calcium Total Bilirubin AST ALT Alkaline Phosphatase Total Protein Albumin Globulin Albumin/Globulin Ratio
[2017-11-05 07:57] LABS: HEMOGLOBIN 11.2 g/dL (12.0-18.0); LYMPH # 0.6 K/uL (1.0-4.3); LYMPH % 5.8 % (20.0-40.0); MEAN CELL VOLUME 87.2 fL (80.0-94.0); MEAN CORPUSCULAR HEMOGLOBIN 27.9 pg (27.0-31.0); MEAN PLATELET VOLUME 8.7 fL (7.2-11.7); MONO # 0.2 K/uL (0.0-0.8); MONO % 1.7 % (0.0-10.0); NEUT # 9.6 K/uL (1.8-7.0); NEUT % 92.5 % (50.0-75.0); NRBC % 0.1 % (0.0-2.0); PLATELET COUNT 259 K/uL (130-400); RBC 4.03 Mil/uL (4.40-5.90); RED CELL DISTRIBUTION WIDTH 15.8 % (11.5-14.5); WHITE BLOOD COUNT 10.4 K/uL (4.8-10.8)
[2017-11-05 08:23] LABS: ALB/GLOB RATIO 0.9 (1.0-2.1); ALBUMIN 3.2 g/dL (3.5-5.0); CALCIUM 8.2 mg/dl (8.6-10.4)
--- NOTE | 2017-11-05 08:59 | CON ---
DATE: 11/05/2017 TIME OF EVALUATION: 7:05 a.m. NEUROLOGICAL PROBLEM: Severe intracranial vascular disease and aneurysm. CHIEF COMPLAINT: The patient was admitted with history of respiratory infection. From neurological point of view was called in to assess his status of his intracranial aneurysm as well as the stenosis. HISTORY OF PRESENT ILLNESS: Mr. Haris Flowers is a 67-year-old right-handed moderately obese [place] male who is known to me from his previous hospitalization in June, been worked up for his stroke as well as aneurysm, been stable at present, admitted with respiratory infection. From the history, there is no documented focal weakness, speech, visual, bulbar dysfunction. The patient has been presenting with productive cough, exertional dyspnea with edema in legs. PAST MEDICAL HISTORY: Significant for hypertension, coronary artery disease, status post bypass surgery, atrial fibrillation, congestive heart failure, COPD, gout, diabetes mellitus, back injuries, stroke, basilar artery aneurysm, significant intracranial atherosclerotic disease. REVIEW OF SYSTEMS: Twelve-point system being reviewed. From neuro, intracranial aneurysm. PERSONAL HISTORY: Denies smoking or alcohol use. MEDICATIONS: Apresoline, Ativan, Catapres, Cozaar, Crestor, heparin, Lantus insulin, metoprolol, furosemide, famotidine, methylprednisolone, Spiriva, Tamiflu, Zyloprim. PHYSICAL EXAMINATION: VITAL SIGNS: Blood pressure 99/85, mean artery pressure of 89, respiratory rate of 16, temperature afebrile with a pulse rate 88. NECK: Supple. No carotid bruit. GENERAL: The patient seems to be sedated. Arousable with noxious stimuli. Moves all four extremities. NEUROLOGIC: Eyes closed. On forcibly opening the eyelid, rolling conjugate gaze. Pupils reactive to light. Extraocular movement intact. No facial sensory deficit. No facial asymmetry. Motor examination: He could able to move upper extremities and lower extremities against the gravity. Right leg is externally rotated which is new. Deep tendon reflexes are absent. Plantars are equivocal response on the right side, left side was upgoing. Sensory examination responded to pain symmetrically on both sides. Coordination: Gait is deferred at this time. BLOOD WORKUP: WBC 9.6, hemoglobin 11.9, hematocrit 37.0, platelet 284. Sodium 139, potassium 4.7, chloride 100, bicarbonate 29, BUN 52, creatinine 3.0, glucose 291. CONCLUSION: 1. Mr. Haris Flowers has been presenting with new right hemiparesis manifesting with right leg externally rotated with equivocal response on Babinski sign. The patient is sedated with limited exam. Considering his significant risk factors, the patient should have MRI of the brain to rule out left new subcortical dysfunction. 2. The patient also carries a significant history of basilar artery aneurysm which should be followed from his previous admission. 3. Significant bilateral distal sensorimotor neuropathy. RECOMMENDATIONS: MRI of the brain and MR angiogram to assess the existing aneurysm. The patient should be on antiplatelets. The patient should be resuming clopidogrel with his current medication. Statin should be continued. The patient will be followed closely with you. Arslan Carl MD [facility]
[2017-11-05 09:12] LABS: HYPOCHROMIC SLIGHT; LYMPHOCYTE 7 % (20-40); MONOCYTE 1 % (0-10); NEUTROPHIL 92 % (50-75); PLATELET ESTIMATE NORMAL (NORMAL); TOTAL CELLS COUNTED 100
[2017-11-05 09:59] LABS: ABG ALLEN TEST POS; ARTERIAL BLOOD GAS HCO3 27.1 mmol/L (21-28); ARTERIAL BLOOD GAS O2 SAT 81.8 % (95-98); ARTERIAL BLOOD GAS PCO2 63 mm/Hg (35-45); ARTERIAL BLOOD GAS PH 7.31 (7.35-7.45); ARTERIAL BLOOD GAS PO2 44 mm/Hg (80-100); ARTERIAL BLOOD GAS TCO2 33.6 mmol/L (22-28)
[2017-11-05] MEDS: Omega-3-Acid Ethyl Esters 1 GM Cap PO SCH ×2 (10:00→19:21)
[2017-11-05] MEDS: Oseltamivir 6 MG/ML PO SCH ×2 (10:00→18:36)
[2017-11-05] MEDS ORDERED: Heparin 0 ML IV ONE (12:25)
[2017-11-05] MEDS ORDERED: Iodixanol 320 MG/ML 100 ML BOTTLE IV ONE (12:26)
[2017-11-05] MEDS: (Novolog) Insulin Aspart, Recombinant 100 u/ml 10 ml vial SC SCH ×4 (12:47→22:00)
[2017-11-05] MEDS: (Lantus) Insulin Glargine, Recombinant SC SCH (12:49)
--- NOTE | 2017-11-05 12:53 | CP.PCM.PN ---
Subjective - Date & Time of Evaluation Date of Evaluation: 11/05/17 Time of Evaluation: 11:30 - Subjective Subjective: patient seen- with desaturation CT scan that was done showed multifocal consolidation was evaluated by Pulmonary- placed on BIPAP- -worsened and decided to transfer to ICU Aneurysm- Neuro on case now, discussed plavix currently patient is conversant , oriented to place , but some disorientation no acute coughing no pain Objective - Vital Signs/Intake and Output Vital Signs (last 24 hours): Temp Pulse Resp BP Pulse Ox 97.4 F L 65 20 166/80 H 97 11/05/17 07:00 11/05/17 07:00 11/05/17 07:00 11/05/17 10:00 11/05/17 07:00 - Medications Medications: Current Medications Allopurinol (Zyloprim) 100 mg PO BID [facility] Last Admin: 11/05/17 10:00 Dose: 100 mg Clonidine HCl (Catapres) 0.1 mg PO BID [facility] Last Admin: 11/05/17 10:00 Dose: Not Given Clopidogrel Bisulfate (Plavix) 75 mg PO DAILY [facility] Last Admin: 11/05/17 10:00 Dose: 75 mg Famotidine (Pepcid) 20 mg IVP Q12H [facility] Last Admin: 11/05/17 10:00 Dose: 20 mg Furosemide (Lasix) 40 mg IVP DAILY [facility] Last Admin: 11/05/17 10:00 Dose: 40 mg Heparin Sodium (Porcine) (Heparin) 5,000 units SC Q8 [facility] Last Admin: 11/05/17 06:07 Dose: 5,000 units Hydralazine HCl (Apresoline) 25 mg PO Q8H [facility] Last Admin: 11/05/17 02:27 Dose: Not Given Piperacillin Sod/Tazobactam (Sod 3.375 gm/ Sodium Chloride) 100 mls @ 100 mls/ hr IVPB Q8H [facility] Last Admin: 11/05/17 09:00 Dose: 100 mls/hr Azithromycin 500 mg/ Sodium (Chloride) 250 mls @ 250 mls/hr IVPB Q24H [facility] Last Admin: 11/04/17 18:58 Dose: 250 mls/hr Insulin Aspart (Novolog) 0 unit SC ACHS [facility] PRN Reason: Protocol Last Admin: 11/05/17 12:47 Dose: 4 unit Insulin Glargine (Lantus) 30 unit SC DAILY [facility] Last Admin: 11/05/17 12:49 Dose: 30 units Losartan Potassium (Cozaar) 100 mg PO DAILY [facility] Last Admin: 11/04/17 09:35 Dose: 100 mg Methylprednisolone (Solu-Medrol) 60 mg IVP Q6 [facility] Last Admin: 11/05/17 06:09 Dose: Not Given Methylprednisolone (Solu-Medrol) 40 mg IVP Q6 [facility] Last Admin: 11/05/17 06:07 Dose: 40 mg Metoprolol Tartrate (Lopressor) 50 mg PO BID [facility] Last Admin: 11/05/17 10:00 Dose: 50 mg Bmori-0-Knla Ethyl Esters (Lovaza) 2 gm PO BID [facility] Last Admin: 11/05/17 10:00 Dose: 2 gm Oseltamivir Phosphate (Tamiflu Susp) 30 mg PO BID [facility] Stop: 11/08/17 09:57 Last Admin: 11/04/17 17:15 Dose: 30 mg Rosuvastatin Calcium (Crestor) 20 mg PO HS [facility] Last Admin: 11/04/17 21:35 Dose: 20 mg Tiotropium [place] (Spiriva) 18 mcg INH RQ24 [facility] Last Admin: 11/04/17 10:37 Dose: 18 mcg - Labs Labs: 11/05/17 07:38 11/05/17 07:38 PT 12.5 SECONDS (9.7-12.2) H 11/02/17 15:50 INR 1.1 11/02/17 15:50 APTT 38 SECONDS (21-34) H 11/02/17 15:50 - Constitutional Appears: Other (on BIpap awake alert conversant ) - Head Exam Head Exam: ATRAUMATIC, NORMOCEPHALIC - Eye Exam Eye Exam: Normal appearance. absent: Nystagmus - ENT Exam ENT Exam: Mucous Membranes Moist - Neck Exam Neck Exam: Full ROM. absent: Tenderness - Respiratory Exam Respiratory Exam: Decreased Breath Sounds, NORMAL BREATHING PATTERN - Cardiovascular Exam Cardiovascular Exam: REGULAR RHYTHM - GI/Abdominal Exam GI & Abdominal Exam: Soft, Normal Bowel Sounds. absent: Distended, Tenderness - Extremities Exam Extremities Exam: Full ROM. absent: Pedal Edema, Tenderness - Back Exam Back Exam: absent: rash noted, tenderness - Neurological Exam Neurological Exam: Alert, Awake, Oriented x3 (x2) - Psychiatric Exam Psychiatric exam: Normal Affect - Skin Skin Exam: Intact, Normal Color Assessment and Plan - Assessment and Plan (Free Text) Assessment: Patient with mutiple medical etelvina;ems CAD A FIB Hypertension IDDM2 admitted for CHF - with fluid overload- with improvemt after diuresis COPD - on antibiotic and steroid History of Delusional disorder with an acute episode of agitation and behavioral changes- was eval and treated now with desaturation, with multifocal pneumonia as per CY chest - transferred to ICU for furher management IDDM- continue to monitor and adjut insulin accordingly as per patient is on steroid Aneurysm- seen on CT a along with histroy of Basilar aneurysm- on toprol- control BP - patient is on Plavix for CAD and Afib CAD s/pCABG- with A fib - on plavix - concern of plavix and aneurysm discussed family discussion done guarded condition
[2017-11-05] MEDS ORDERED: Vancomycin 1 gm/NS 200 ml 1 GM/200 ML BAG IVPB SCH (13:19)
--- NOTE | 2017-11-05 13:49 | CP.PCM.CON ---
<SilvestreObey pichardo Kathi - Last Filed: 11/05/17 13:49> History of Present Illness - History of Present Illness History of Present Illness: 67 year old male with PMHx of DM, HTN, CAD s/p CABG, AFib, CHF, COPD, Gout/ Hyperuricemia, back injury s/p fall years ago, basilar aneurysm, Hx of TIA, delusional disorder, who was admitted for Shortness of breath/CHF exacerbation. Patient was on floors on BiPap when patient became hypoxic thus transferred to ICU. 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 Review of Systems - Review of Systems Systems not reviewed;Unavailable: Uncooperative Past Patient History - Infectious Disease Hx of Infectious Diseases: None - Past Medical History & Family History Past Medical History?: Yes - Past Social History Smoking Status: Former Smoker - CARDIAC Hx Cardiac Disorders: Yes Hx Congestive Heart Failure: Yes Hx Hypercholesterolemia: Yes Hx Hypertension: Yes - PULMONARY Hx Respiratory Disorders: Yes Hx Chronic Obstructive Pulmonary Disease (COPD): Yes - NEUROLOGICAL Hx Neurological Disorder: No Other/Comment: stroke 2012 - HEENT Hx HEENT Problems: No - RENAL Hx Chronic Kidney Disease: Yes - ENDOCRINE/METABOLIC Hx Endocrine Disorders: Yes Hx Diabetes Mellitus Type 2: Yes - HEMATOLOGICAL/ONCOLOGICAL Hx Blood Disorders: No - INTEGUMENTARY Hx Dermatological Problems: No - MUSCULOSKELETAL/RHEUMATOLOGICAL Hx Musculoskeletal Disorders: Yes Hx Falls: Yes - GASTROINTESTINAL Hx Gastrointestinal Disorders: No - GENITOURINARY/GYNECOLOGICAL Hx Genitourinary Disorders: No - PSYCHIATRIC Hx Psychophysiologic Disorder: No Hx Substance Use: No - SURGICAL HISTORY Hx Coronary Artery Bypass Graft: Yes (2005) Other/Comment: triple by pass 2006 - ANESTHESIA Hx Anesthesia: Yes Meds Allergies/Adverse Reactions: Allergies Allergy/AdvReac Type Severity Reaction Status Date / Time No Known Allergies Allergy Verified 07/02/17 14:39 - Medications Medications: Current Medications Allopurinol (Zyloprim) 100 mg PO BID [facility] Last Admin: 11/05/17 10:00 Dose: 100 mg Clonidine HCl (Catapres) 0.1 mg PO BID [facility] Last Admin: 11/05/17 10:00 Dose: Not Given Clopidogrel Bisulfate (Plavix) 75 mg PO DAILY [facility] Last Admin: 11/05/17 10:00 Dose: 75 mg Famotidine (Pepcid) 20 mg IVP Q12H [facility] Last Admin: 11/05/17 10:00 Dose: 20 mg Furosemide (Lasix) 40 mg IVP DAILY [facility] Last Admin: 11/05/17 10:00 Dose: 40 mg Heparin Sodium (Porcine) (Heparin) 5,000 units SC Q8 [facility] Last Admin: 11/05/17 06:07 Dose: 5,000 units Hydralazine HCl (Apresoline) 25 mg PO Q8H [facility] Last Admin: 11/05/17 10:00 Dose: 25 mg Piperacillin Sod/Tazobactam (Sod 3.375 gm/ Sodium Chloride) 100 mls @ 100 mls/ hr IVPB Q8H [facility] Last Admin: 11/05/17 09:00 Dose: 100 mls/hr Azithromycin 500 mg/ Sodium (Chloride) 250 mls @ 250 mls/hr IVPB Q24H [facility] Last Admin: 11/04/17 18:58 Dose: 250 mls/hr Vancomycin/Sodium Chloride (Vancomycin 1 Gm/Ns 200 Ml) 1 gm in 200 mls @ 166.7 mls/hr IVPB Q24H [facility] Stop: 11/10/17 13:20 Insulin Aspart (Novolog) 0 unit SC ACHS [facility] PRN Reason: Protocol Last Admin: 11/05/17 13:41 Dose: Not Given Insulin Glargine (Lantus) 30 unit SC DAILY [facility] Last Admin: 11/05/17 12:49 Dose: 30 units Losartan Potassium (Cozaar) 100 mg PO DAILY [facility] Last Admin: 11/05/17 11:00 Dose: 100 mg Methylprednisolone (Solu-Medrol) 40 mg IVP Q6 [facility] Last Admin: 11/05/17 06:07 Dose: 40 mg Metoprolol Tartrate (Lopressor) 50 mg PO BID [facility] Last Admin: 11/05/17 10:00 Dose: 50 mg Buhmx-3-Elbb Ethyl Esters (Lovaza) 2 gm PO BID [facility] Last Admin: 11/05/17 10:00 Dose: 2 gm Oseltamivir Phosphate (Tamiflu Susp) 30 mg PO BID [facility] Stop: 11/08/17 09:57 Last Admin: 11/05/17 10:00 Dose: 30 mg Rosuvastatin Calcium (Crestor) 20 mg PO HS [facility] Last Admin: 11/04/17 21:35 Dose: 20 mg Tiotropium [place] (Spiriva) 18 mcg INH RQ24 [facility] Last Admin: 11/04/17 10:37 Dose: 18 mcg Physical Exam - Additional Findings Additional findings: - Constitutional Appears: Non-toxic, No Acute Distress - Head Exam Head Exam: ATRAUMATIC, NORMOCEPHALIC - Eye Exam Eye Exam: Normal appearance - ENT Exam ENT Exam: Mucous Membranes Moist - Neck Exam Neck Exam: Full ROM. absent: Tenderness - Respiratory Exam Respiratory Exam: Decreased Breath Sounds, Wheezes - Cardiovascular Exam Cardiovascular Exam: REGULAR RHYTHM - GI/Abdominal Exam GI & Abdominal Exam: Soft, Normal Bowel Sounds. absent: Distended, Tenderness - Neurological Exam Neurological Exam: Altered, Awake, Alert responsive to both verbal and nonverbal stimuli - Skin Skin Exam: Intact, Normal Color Results - Vital Signs Recent Vital Signs: Last Vital Signs Temp 97.4 F L 11/05/17 07:00 Pulse 65 11/05/17 07:00 Resp 20 11/05/17 07:00 BP 166/80 H 11/05/17 10:00 Pulse Ox 97 11/05/17 07:00 - Labs Result Diagrams: 11/05/17 07:38 11/05/17 07:38 Labs: Laboratory Results - last 24 hr 11/04/17 11/04/17 11/04/17 14:28 16:31 21:21 WBC RBC Hgb Hct MCV MCH MCHC RDW Plt Count MPV Neut % (Auto) Lymph % (Auto) Crosby % (Auto) Eos % (Auto) Baso % (Auto) Neut # (Auto) Lymph # (Auto) Crosby # (Auto) Eos # (Auto) Baso # (Auto) Neutrophils % (Manual) Lymphocytes % (Manual) Monocytes % (Manual) Platelet Estimate Hypochromasia (manual) Basophilic Stippling Puncture Site Rra pCO2 59 H pO2 70 L HCO3 29.2 H ABG pH 7.35 ABG Total CO2 34.4 H ABG O2 Saturation 95.5 ABG Base Excess 5.6 H ABG Hemoglobin 11.3 L ABG Carboxyhemoglobin 2.2 H POC ABG HHb (Measured) 4.3 ABG Methemoglobin 1.3 Luis Carlos Test Pos ABG Potassium Hgb O2 Saturation 92.2 L Glucose Lactate Liter Flow 2.0 Crit Value Called To Crit Value Called By Crit Value Read Back Blood Gas Notified Time Sodium Potassium Chloride Carbon Dioxide Anion Gap BUN Creatinine Est GFR ( Amer) Est GFR (Non-Af Amer) POC Glucose (mg/dL) 234 H 289 H Random Glucose Calcium Total Bilirubin AST ALT Alkaline Phosphatase Total Protein Albumin Globulin Albumin/Globulin Ratio Arterial Blood Potassium 11/04/17 11/05/17 11/05/17 23:31 06:23 07:38 WBC 10.4 RBC 4.03 L Hgb 11.2 L Hct 35.1 MCV 87.2 MCH 27.9 MCHC 32.0 L RDW 15.8 H Plt Count 259 MPV 8.7 Neut % (Auto) 92.5 H Lymph % (Auto) 5.8 L Crosby % (Auto) 1.7 Eos % (Auto) 0.0 Baso % (Auto) 0.0 Neut # (Auto) 9.6 H Lymph # (Auto) 0.6 L Crosby # (Auto) 0.2 Eos # (Auto) 0.0 Baso # (Auto) 0.0 Neutrophils % (Manual) 92 H Lymphocytes % (Manual) 7 L Monocytes % (Manual) 1 Platelet Estimate Normal Hypochromasia (manual) Slight Basophilic Stippling Slight Puncture Site pCO2 pO2 HCO3 ABG pH ABG Total CO2 ABG O2 Saturation ABG Base Excess ABG Hemoglobin ABG Carboxyhemoglobin POC ABG HHb (Measured) ABG Methemoglobin Luis Carlos Test ABG Potassium Hgb O2 Saturation Glucose Lactate Liter Flow Crit Value Called To Crit Value Called By Crit Value Read Back Blood Gas Notified Time Sodium Potassium Chloride Carbon Dioxide Anion Gap BUN Creatinine Est GFR ( Amer) Est GFR (Non-Af Amer) POC Glucose (mg/dL) 287 H 221 H Random Glucose Calcium Total Bilirubin AST ALT Alkaline Phosphatase Total Protein Albumin Globulin Albumin/Globulin Ratio Arterial Blood Potassium 11/05/17 11/05/17 11/05/17 07:38 09:55 11:03 WBC RBC Hgb Hct MCV MCH MCHC RDW Plt Count MPV Neut % (Auto) Lymph % (Auto) Crosby % (Auto) Eos % (Auto) Baso % (Auto) Neut # (Auto) Lymph # (Auto) Crosby # (Auto) Eos # (Auto) Baso # (Auto) Neutrophils % (Manual) Lymphocytes % (Manual) Monocytes % (Manual) Platelet Estimate Hypochromasia (manual) Basophilic Stippling Puncture Site Rra pCO2 63 H pO2 44 L* HCO3 27.1 ABG pH 7.31 L ABG Total CO2 33.6 H ABG O2 Saturation 81.8 L ABG Base Excess 3.6 H ABG Hemoglobin ABG Carboxyhemoglobin POC ABG HHb (Measured) ABG Methemoglobin Luis Carlos Test Pos ABG Potassium 4.4 Hgb O2 Saturation Glucose 207 H Lactate 0.8 Liter Flow Crit Value Called To Dr mills Crit Value Called By Medardo mclean efficiency analyst Crit Value Read Back Y Blood Gas Notified Time 959 Sodium 141 143.0 Potassium 4.6 Chloride 101 111.0 H Carbon Dioxide 31 H Anion Gap 13 BUN 58 H Creatinine 3.0 H Est GFR ( Amer) 26 Est GFR (Non-Af Amer) 21 POC Glucose (mg/dL) 212 H Random Glucose 227 H Calcium 8.2 L Total Bilirubin 0.2 AST 15 L D ALT 19 L Alkaline Phosphatase 56 Total Protein 6.7 Albumin 3.2 L Globulin 3.6 Albumin/Globulin Ratio 0.9 L Arterial Blood Potassium 4.4 Assessment & Plan - Assessment and Plan (Free Text) Assessment: 67 year old M with multiple medical problems (as listed below) admitted for shortness of breath/CHF exacerbation found to have multifocal pneumonia and positive for the Flu: ID: Multifocal Pneumonia, Flu CXR 11/02: left apical and right basilar opacities. possible multifocal pneumonia , small right pleural effusion Influenza A positive Azithromycin 500mg IV QD Tamiflu 30mg PO BID Zosyn 3.375g IV TID Vancomycin 1g IV QD Blood Culture 11/02 (+) for Coagulase Negative Staphyloccus, Repeat Blood Culture negative up to date F/U Legionella, Mycoplasma, Procalcitonin, MRSA screen Cardio: CHF exacerbation, CAD s/p CABG, Afib, HTN Cardio Dr Butler on board EKG 11/02: sinus arrhythmia, RBBB, left anterior fascicular block, possible LVH BNP 11/02: 2,630 Scheduled for cardiac cath 11/05 however might have to be postponed due to acute hypoxia Clonidine 0.1mg PO BID Clopidogrel 75mg PO QD Hydralazine 25mg PO TID Losartan 100mg PO QD Crestor 20mg PO HS Pulm: COPD, Multifocal Pneumonia Pulm Dr Alves on board CXR 11/02: left apical and right basilar opacities. possible multifocal pneumonia , small right pleural effusion CT chest 11/04: multifocal left-sided consolidation. Follow-up to rule out underlying neoplasm. Left pleural effusion and pleural fluid within right major and minor fissures. Marked cardiomegaly with evidence of CABG. Aneurysmal dilation of the ascending thoracic aorta and dilatation of the main pulmonary artery. Old anterior wedge compression deformity of the T4 vertebra. Postsurgical deformity of right 5th and 6th ribs. Cholelithiasis. Lasix 40mg IV QD Methylprednisolone 40mg IV Q6 Spiriva 18mcg INH QD Endo: DM ISS Insulin Glargine 30u SC QD Neuro: basilar aneurysm, Hx of TIA Neuro Dr Carl on board Mild right hemiparesis F/U Brain without contrast F/U MRA Head without contrast Renal: Acute Renal Failure Eleavted BUN/Cr Psych: Delusional Disorder Psych Dr Mills on board Agitation seen on this admission - sensitive to Benzo given during agitation 1:1 obs Rheum: Gout/Hyperuricemia Con't home med Allopurinol 100mg PO BID GI: no active issues NPO Prophylatic Measures: Pepcid 20mg IV BID [place]-3 2g PO BID Heparin 5000u SC TID <Hever Dorantes M - Last Filed: 11/05/17 16:48> Meds - Medications Medications: Current Medications Allopurinol (Zyloprim) 100 mg PO BID [facility] Last Admin: 11/05/17 10:00 Dose: 100 mg Clonidine HCl (Catapres) 0.1 mg PO BID [facility] Last Admin: 11/05/17 10:00 Dose: Not Given Clopidogrel Bisulfate (Plavix) 75 mg PO DAILY [facility] Last Admin: 11/05/17 10:00 Dose: 75 mg Famotidine (Pepcid) 20 mg IVP Q12H [facility] Last Admin: 11/05/17 10:00 Dose: 20 mg Furosemide (Lasix) 40 mg IVP DAILY [facility] Last Admin: 11/05/17 10:00 Dose: 40 mg Heparin Sodium (Porcine) (Heparin) 5,000 units SC Q8 [facility] Last Admin: 11/05/17 14:25 Dose: 5,000 units Hydralazine HCl (Apresoline) 25 mg PO Q8H [facility] Last Admin: 11/05/17 10:00 Dose: 25 mg Piperacillin Sod/Tazobactam (Sod 3.375 gm/ Sodium Chloride) 100 mls @ 100 mls/ hr IVPB Q8H [facility] Last Admin: 11/05/17 09:00 Dose: 100 mls/hr Azithromycin 500 mg/ Sodium (Chloride) 250 mls @ 250 mls/hr IVPB Q24H [facility] Last Admin: 11/04/17 18:58 Dose: 250 mls/hr Vancomycin/Sodium Chloride (Vancomycin 1 Gm/Ns 200 Ml) 1 gm in 200 mls @ 166.7 mls/hr IVPB Q24H [facility] Stop: 11/10/17 13:20 Last Admin: 11/05/17 13:30 Dose: 166.7 mls/hr Insulin Aspart (Novolog) 0 unit SC ACHS [facility] PRN Reason: Protocol Last Admin: 11/05/17 13:41 Dose: Not Given Insulin Glargine (Lantus) 30 unit SC DAILY [facility] Last Admin: 11/05/17 12:49 Dose: 30 units Losartan Potassium (Cozaar) 100 mg PO DAILY [facility] Last Admin: 11/05/17 11:00 Dose: 100 mg Methylprednisolone (Solu-Medrol) 40 mg IVP Q6 [facility] Last Admin: 11/05/17 14:27 Dose: 40 mg Metoprolol Tartrate (Lopressor) 50 mg PO BID [facility] Last Admin: 11/05/17 10:00 Dose: 50 mg Wfavv-4-Pdbl Ethyl Esters (Lovaza) 2 gm PO BID [facility] Last Admin: 11/05/17 10:00 Dose: 2 gm Oseltamivir Phosphate (Tamiflu Susp) 30 mg PO BID [facility] Stop: 11/08/17 09:57 Last Admin: 11/05/17 10:00 Dose: 30 mg Rosuvastatin Calcium (Crestor) 20 mg PO HS [facility] Last Admin: 11/04/17 21:35 Dose: 20 mg Tiotropium [place] (Spiriva) 18 mcg INH RQ24 [facility] Last Admin: 11/04/17 10:37 Dose: 18 mcg Results - Vital Signs Recent Vital Signs: Last Vital Signs Temp 98.2 F 11/05/17 13:30 Pulse 82 11/05/17 15:19 Resp 21 11/05/17 15:19 BP 127/91 H 11/05/17 15:19 Pulse Ox 100 11/05/17 15:00 - Labs Result Diagrams: 11/05/17 07:38 11/05/17 07:38 Labs: Laboratory Results - last 24 hr 11/04/17 11/04/17 11/04/17 16:31 21:21 23:31 WBC RBC Hgb Hct MCV MCH MCHC RDW Plt Count MPV Neut % (Auto) Lymph % (Auto) Crosby % (Auto) Eos % (Auto) Baso % (Auto) Neut # (Auto) Lymph # (Auto) Crosby # (Auto) Eos # (Auto) Baso # (Auto) Neutrophils % (Manual) Lymphocytes % (Manual) Monocytes % (Manual) Platelet Estimate Hypochromasia (manual) Basophilic Stippling Puncture Site pCO2 pO2 HCO3 ABG pH ABG Total CO2 ABG O2 Saturation ABG Base Excess Luis Carlos Test ABG Potassium Glucose Lactate Crit Value Called To Crit Value Called By Crit Value Read Back Blood Gas Notified Time Sodium Potassium Chloride Carbon Dioxide Anion Gap BUN Creatinine Est GFR ( Amer) Est GFR (Non-Af Amer) POC Glucose (mg/dL) 234 H 289 H 287 H Random Glucose Calcium Total Bilirubin AST ALT Alkaline Phosphatase Total Protein Albumin Globulin Albumin/Globulin Ratio Arterial Blood Potassium 11/05/17 11/05/17 11/05/17 06:23 07:38 07:38 WBC 10.4 RBC 4.03 L Hgb 11.2 L Hct 35.1 MCV 87.2 MCH 27.9 MCHC 32.0 L RDW 15.8 H Plt Count 259 MPV 8.7 Neut % (Auto) 92.5 H Lymph % (Auto) 5.8 L Crosby % (Auto) 1.7 Eos % (Auto) 0.0 Baso % (Auto) 0.0 Neut # (Auto) 9.6 H Lymph # (Auto) 0.6 L Crosby # (Auto) 0.2 Eos # (Auto) 0.0 Baso # (Auto) 0.0 Neutrophils % (Manual) 92 H Lymphocytes % (Manual) 7 L Monocytes % (Manual) 1 Platelet Estimate Normal Hypochromasia (manual) Slight Basophilic Stippling Slight Puncture Site pCO2 pO2 HCO3 ABG pH ABG Total CO2 ABG O2 Saturation ABG Base Excess Luis Carlos Test ABG Potassium Glucose Lactate Crit Value Called To Crit Value Called By Crit Value Read Back Blood Gas Notified Time Sodium 141 Potassium 4.6 Chloride 101 Carbon Dioxide 31 H Anion Gap 13 BUN 58 H Creatinine 3.0 H Est GFR ( Amer) 26 Est GFR (Non-Af Amer) 21 POC Glucose (mg/dL) 221 H Random Glucose 227 H Calcium 8.2 L Total Bilirubin 0.2 AST 15 L D ALT 19 L Alkaline Phosphatase 56 Total Protein 6.7 Albumin 3.2 L Globulin 3.6 Albumin/Globulin Ratio 0.9 L Arterial Blood Potassium 11/05/17 11/05/17 09:55 11:03 WBC RBC Hgb Hct MCV MCH MCHC RDW Plt Count MPV Neut % (Auto) Lymph % (Auto) Crosby % (Auto) Eos % (Auto) Baso % (Auto) Neut # (Auto) Lymph # (Auto) [place] # (Auto) Eos # (Auto) Baso # (Auto) Neutrophils % (Manual) Lymphocytes % (Manual) Monocytes % (Manual) Platelet Estimate Hypochromasia (manual) Basophilic Stippling Puncture Site Rra pCO2 63 H pO2 44 L* HCO3 27.1 ABG pH 7.31 L ABG Total CO2 33.6 H ABG O2 Saturation 81.8 L ABG Base Excess 3.6 H Luis Carlos Test Pos ABG Potassium 4.4 Glucose 207 H Lactate 0.8 Crit Value Called To Dr mills Crit Value Called By Medardo mclean efficiency analyst Crit Value Read Back Y Blood Gas Notified Time 959 Sodium 143.0 Potassium Chloride 111.0 H Carbon Dioxide Anion Gap BUN Creatinine Est GFR ( Amer) Est GFR (Non-Af Amer) POC Glucose (mg/dL) 212 H Random Glucose Calcium Total Bilirubin AST ALT Alkaline Phosphatase Total Protein Albumin Globulin Albumin/Globulin Ratio Arterial Blood Potassium 4.4 Attending/Attestation - Attestation I have personally seen and examined this patient.: Yes I have fully participated in the care of the patient.: Yes I have reviewed all pertinent clinical information: Yes Notes (Text): 11/05/17 15:49 Today: October The Patient was seen and examined at the bedside, Medical records reviewed, and management issues were discussed and formulated with the house staff. I have reviewed all the relevant clinical, laboratory, hemodynamic, radiographic data and medications Events reviewed Pain issues, skin care, head of the bed elevation, glycemic control were addressed. Agree with above resident's assessment and treatment plans of care as transcribed in Dr. Rivers note. Critically ill patient with acute hypoxemic respiratory failure, Respiratory acidosis from acuter pulmonary edema, acute systolic CHF exacerbation, and bilateral Multifocal pneumonia with pleural effusion in the sitting of positive influenza A infection Critically ill patient with acute hypoxemic respiratory failure, Respiratory acidosis from acuter pulmonary edema, acute systolic CHF exacerbation, and bilateral Multifocal pneumonia with pleural effusion in the sitting of positive influenza A infection Patient transferred to ICU, Will continue Tamiflu, IV Antibiotics with Zosyn, Zithromax, Add Vanco Repeat ABG 7.33/66/141/36/99% Change BIPAP sitting to 15/6 with 30% Fio2 Continue IV antibiotics Follow-up culture and sensitivity Discussed with the family in details diagnosis, treatment plans and alternatives , Code status: Full code Total critical care time 54 minutes
[2017-11-05 16:21] LABS: ABG ALLEN TEST UNABLE; ARTERIAL BLOOD GAS HCO3 30.1 mmol/L (21-28); ARTERIAL BLOOD GAS O2 SAT 99.4 % (95-98); ARTERIAL BLOOD GAS PCO2 66 mm/Hg (35-45); ARTERIAL BLOOD GAS PH 7.33 (7.35-7.45); ARTERIAL BLOOD GAS PO2 141 mm/Hg (80-100); ARTERIAL BLOOD GAS TCO2 36.8 mmol/L (22-28)
[2017-11-05 17:16] LABS: LEGIONELLA AG URINE NEGATIVE (NEGATIVE)
[2017-11-05] MEDS: Azithromycin 500 MG in Sodium Chloride 0.9% 250 ML IVPB SCH (17:52)
--- NOTE | 2017-11-05 17:59 | CP.PCM.PN ---
Subjective - Date & Time of Evaluation Date of Evaluation: 11/05/17 Time of Evaluation: 11:00 - Subjective Subjective: Patient seen and examined And placed on BiPAP for hypoxemia and respiratory distress And transferred to FOR CLOSE MONITORING CAT scan of the chest consistent with a lateral infiltrate Patient being treated for an pneumonia/chf seen by neurology Objective - Vital Signs/Intake and Output Vital Signs (last 24 hours): Temp Pulse Resp BP Pulse Ox 97.8 F 71 21 123/92 H 99 11/05/17 16:00 11/05/17 17:19 11/05/17 17:19 11/05/17 17:19 11/05/17 17:19 Intake and Output: 11/05/17 11/05/17 06:59 18:59 Intake Total 200 Output Total 260 Balance -60 - Medications Medications: Current Medications Allopurinol (Zyloprim) 100 mg PO BID [facility] Last Admin: 11/05/17 10:00 Dose: 100 mg Clonidine HCl (Catapres) 0.1 mg PO BID [facility] Last Admin: 11/05/17 10:00 Dose: Not Given Clopidogrel Bisulfate (Plavix) 75 mg PO DAILY [facility] Last Admin: 11/05/17 10:00 Dose: 75 mg Famotidine (Pepcid) 20 mg IVP Q12H [facility] Last Admin: 11/05/17 10:00 Dose: 20 mg Furosemide (Lasix) 40 mg IVP DAILY [facility] Last Admin: 11/05/17 10:00 Dose: 40 mg Heparin Sodium (Porcine) (Heparin) 5,000 units SC Q8 [facility] Last Admin: 11/05/17 14:25 Dose: 5,000 units Hydralazine HCl (Apresoline) 25 mg PO Q8H [facility] Last Admin: 11/05/17 10:00 Dose: 25 mg Piperacillin Sod/Tazobactam (Sod 3.375 gm/ Sodium Chloride) 100 mls @ 100 mls/ hr IVPB Q8H [facility] Last Admin: 11/05/17 17:52 Dose: 100 mls/hr Azithromycin 500 mg/ Sodium (Chloride) 250 mls @ 250 mls/hr IVPB Q24H [facility] Last Admin: 11/05/17 17:52 Dose: 250 mls/hr Vancomycin/Sodium Chloride (Vancomycin 1 Gm/Ns 200 Ml) 1 gm in 200 mls @ 166.7 mls/hr IVPB Q24H [facility] Stop: 11/10/17 13:20 Last Admin: 11/05/17 13:30 Dose: 166.7 mls/hr Insulin Aspart (Novolog) 0 unit SC ACHS [facility] PRN Reason: Protocol Last Admin: 11/05/17 16:04 Dose: Not Given Insulin Glargine (Lantus) 30 unit SC DAILY [facility] Last Admin: 11/05/17 12:49 Dose: 30 units Losartan Potassium (Cozaar) 100 mg PO DAILY [facility] Last Admin: 11/05/17 11:00 Dose: 100 mg Methylprednisolone (Solu-Medrol) 40 mg IVP Q6 [facility] Last Admin: 11/05/17 17:52 Dose: 40 mg Metoprolol Tartrate (Lopressor) 50 mg PO BID [facility] Last Admin: 11/05/17 10:00 Dose: 50 mg Hisds-0-Mzvi Ethyl Esters (Lovaza) 2 gm PO BID [facility] Last Admin: 11/05/17 10:00 Dose: 2 gm Oseltamivir Phosphate (Tamiflu Susp) 30 mg PO BID [facility] Stop: 11/08/17 09:57 Last Admin: 11/05/17 10:00 Dose: 30 mg Rosuvastatin Calcium (Crestor) 20 mg PO HS [facility] Last Admin: 11/04/17 21:35 Dose: 20 mg Tiotropium [place] (Spiriva) 18 mcg INH RQ24 [facility] Last Admin: 11/04/17 10:37 Dose: 18 mcg - Labs Labs: 11/05/17 07:38 11/05/17 07:38 PT 12.5 SECONDS (9.7-12.2) H 11/02/17 15:50 INR 1.1 11/02/17 15:50 APTT 38 SECONDS (21-34) H 11/02/17 15:50 - Head Exam Head Exam: ATRAUMATIC, NORMOCEPHALIC - ENT Exam ENT Exam: Mucous Membranes Moist - Neck Exam Neck Exam: Normal Inspection - Respiratory Exam Respiratory Exam: Rales - Cardiovascular Exam Cardiovascular Exam: REGULAR RHYTHM - GI/Abdominal Exam GI & Abdominal Exam: Soft, Normal Bowel Sounds Assessment and Plan (1) Pneumonia Assessment & Plan: CONTINUE BiPAP IV antibiotics Monitor renal function and output Cardiology followup Followup chest x-ray and ABG Nebulizer treatment Status: Acute (2) Influenza A Status: Acute
[2017-11-05 20:33] LABS: ABG ALLEN TEST UNABLE; ARTERIAL BLOOD GAS HCO3 30.8 mmol/L (21-28); ARTERIAL BLOOD GAS PCO2 50 mm/Hg (35-45); ARTERIAL BLOOD GAS PH 7.43 (7.35-7.45); ARTERIAL BLOOD GAS PO2 87 mm/Hg (80-100); ARTERIAL BLOOD GAS TCO2 34.7 mmol/L (22-28)
[2017-11-05 21:35] LABS: MYCOPLASMA PNEUMONIAE IGM NEGATIVE (NEGATIVE)
--- NOTE | 2017-11-05 21:42 | CP.PCM.PN ---
Subjective - Date & Time of Evaluation Date of Evaluation: 11/05/17 Time of Evaluation: 18:45 - Subjective Subjective: Patient transferred to ICU for respiratory failure Physical Examination - Constitutional Appears: Non-toxic, No Acute Distress - Head Exam Head Exam: ATRAUMATIC, NORMAL INSPECTION, NORMOCEPHALIC - Eye Exam Eye Exam: EOMI, PERRL - ENT Exam ENT Exam: Mucous Membranes Moist - Neck Exam Neck Exam: Full ROM - Respiratory Exam Respiratory Exam: absent: Wheezes - Cardiovascular Exam Cardiovascular Exam: +S1, +S2 - GI/Abdominal Exam GI & Abdominal Exam: Soft, Normal Bowel Sounds - Extremities Exam Extremities Exam: Normal Capillary Refill, Pedal Edema (1+ pitting). absent: Tenderness - Psychiatric Exam Psychiatric exam: Flat Affect - Skin Skin Exam: Dry, Normal Color, Warm Objective - Vital Signs/Intake and Output Vital Signs (last 24 hours): Temp Pulse Resp BP Pulse Ox 97.9 F 104 H 24 148/88 100 11/05/17 20:00 11/05/17 21:01 11/05/17 21:01 11/05/17 21:01 11/05/17 21:01 Intake and Output: 11/05/17 11/06/17 18:59 06:59 Intake Total 300 280 Output Total 230 170 Balance 70 110 - Medications Medications: Current Medications Allopurinol (Zyloprim) 100 mg PO BID [facility] Last Admin: 11/05/17 18:16 Dose: Not Given Clonidine HCl (Catapres) 0.1 mg PO BID [facility] Last Admin: 11/05/17 18:15 Dose: Not Given Clopidogrel Bisulfate (Plavix) 75 mg PO DAILY [facility] Last Admin: 11/05/17 10:00 Dose: 75 mg Famotidine (Pepcid) 20 mg IVP Q12H [facility] Last Admin: 11/05/17 10:00 Dose: 20 mg Furosemide (Lasix) 40 mg IVP DAILY [facility] Last Admin: 11/05/17 10:00 Dose: 40 mg Heparin Sodium (Porcine) (Heparin) 5,000 units SC Q8 [facility] Last Admin: 11/05/17 14:25 Dose: 5,000 units Hydralazine HCl (Apresoline) 25 mg PO Q8H [facility] Last Admin: 11/05/17 18:15 Dose: Not Given Piperacillin Sod/Tazobactam (Sod 3.375 gm/ Sodium Chloride) 100 mls @ 100 mls/ hr IVPB Q8H [facility] Last Admin: 11/05/17 17:52 Dose: 100 mls/hr Azithromycin 500 mg/ Sodium (Chloride) 250 mls @ 250 mls/hr IVPB Q24H [facility] Last Admin: 11/05/17 17:52 Dose: 250 mls/hr Vancomycin/Sodium Chloride (Vancomycin 1 Gm/Ns 200 Ml) 1 gm in 200 mls @ 166.7 mls/hr IVPB Q24H [facility] Stop: 11/10/17 13:20 Last Admin: 11/05/17 13:30 Dose: 166.7 mls/hr Insulin Aspart (Novolog) 0 unit SC ACHS [facility] PRN Reason: Protocol Last Admin: 11/05/17 16:04 Dose: Not Given Insulin Glargine (Lantus) 30 unit SC DAILY [facility] Last Admin: 11/05/17 12:49 Dose: 30 units Losartan Potassium (Cozaar) 100 mg PO DAILY [facility] Last Admin: 11/05/17 11:00 Dose: 100 mg Methylprednisolone (Solu-Medrol) 40 mg IVP Q6 [facility] Last Admin: 11/05/17 17:52 Dose: 40 mg Metoprolol Tartrate (Lopressor) 50 mg PO BID [facility] Last Admin: 11/05/17 18:15 Dose: Not Given [id number] Ethyl Esters (Lovaza) 2 gm PO BID [facility] Last Admin: 11/05/17 19:21 Dose: Not Given Oseltamivir Phosphate (Tamiflu Susp) 30 mg PO BID [facility] Stop: 11/08/17 09:57 Last Admin: 11/05/17 18:36 Dose: 30 mg Rosuvastatin Calcium (Crestor) 20 mg PO HS [facility] Last Admin: 11/04/17 21:35 Dose: 20 mg Tiotropium [place] (Spiriva) 18 mcg INH RQ24 [facility] Last Admin: 11/04/17 10:37 Dose: 18 mcg - Labs Labs: 11/05/17 07:38 11/05/17 07:38 PT 12.5 SECONDS (9.7-12.2) H 11/02/17 15:50 INR 1.1 11/02/17 15:50 APTT 38 SECONDS (21-34) H 11/02/17 15:50 Assessment and Plan - Assessment and Plan (Free Text) Assessment: Elevated Troponin Assessment and Plan: Mildly elevated but later trended down: It could have been due to ischemic changes but may also be due to CHF exacerbation as well No ST segment changes appreciated on EKG 07/06 Cont to monitor Status: Acute CHF exacerbation Assessment and Plan: On IV Lasix as nedded ECHO: EF 65%, mild calcified thickening of aortic valve. Refer to complete report Status: Acute Hypertension Assessment and Plan: On Metoprolol, Cozaar and Hydralazine Status: Chronic History of coronary artery bypass graft Assessment and Plan: Crestor 10 mg PO HS On Metoprolol BID, Plavix daily Status: Chronic History of diabetes mellitus Assessment and Plan: Accuchecks Sliding scale Hold Parameters in place Status: Chronic History of TIA (transient ischemic attack) Assessment and Plan: Neuro on the case. See above. Cont to monitor Status: Acute Hypercholesterolemia Assessment and Plan: On Crestor Would benefit from diet and exercise modifications following current hospital course Status: Chronic Family history of cerebral aneurysm Assessment and Plan: Strong family history. Status: Acute Prophylactic measure Assessment and Plan: SCDs contraindicated due to swelling Heparin SC Q12 Pepcid 20 mg IV daily Status: Acute
--- NOTE | 2017-11-05 21:49 | PN ---
DATE: 11/05/2017 SUBJECTIVE: The patient is seen. The patient was transferred to ICU this morning. When I saw him early, he was very combative and confused with waxing and waning of his mental status. He was fighting with the staff. He was refusing to eat. Stat ABG was done and showed his oxygen level was 44 and then was referred for evaluation and transferred to ICU. When I saw him later today in the ICU, he seems to be more cooperative. He is using his BiPAP. He was seen with his . The patient seems to do much better when the is around, but clinically he is much better compared to early this morning. The patient was delirious, probably secondary to hypoxia. REVIEW OF SYSTEMS: GENERAL: The patient is still sleepy, but more responsive, conversing and interacting. He is wearing his BiPAP. Seen with his . He is more cooperative, the patient is in ICU. SKIN: No diaphoresis. HEENT: No headache. NECK: Supple. RESPIRATORY: Doing much better, not in acute respiratory distress. CARDIOVASCULAR: No palpitation. GASTROINTESTINAL: No nausea. No vomiting. EXTREMITIES: Moving extremities. MUSCULOSKELETAL: Feels weak. NEURO: Still with periods of confusion, but able to follow direction. He is much calmer in the ICU. PHYSICAL EXAMINATION: VITAL SIGNS: Temperature is 98.2, pulse 74, blood pressure 139/93, oxygen saturation is 100%. The patient has a BiPAP and respiration rate is 20. MENTAL STATUS EXAMINATION: Elderly [place] male, who looks stated age. He still appears to have confusion, but doing much better compared to this morning. Speech is slow. Affect is restricted. Mood is dysphoric. Thought process is less confused. Thought content, no overt psychosis. No suicidal or homicidal ideation. Attention and memory seems to be limited. Insight and judgment limited. Impulse control is improving at this time. ASSESSMENT: Delirium, metabolic encephalopathy secondary to hypoxia, secondary to congestive heart failure as well as history of delusional disorder, known as [place] syndrome. History of delusional morbid jealousy. History of diabetes and hypertension. PLAN AND RECOMMENDATIONS: The patient is seen, medications reviewed. The patient is currently in the ICU. The patient is followed by Neuro and also referred to be seen by Dr. Butler. The patient has CHF. Continue treatment plan as outlined. Ren Kyle MD [facility] # [id number] MTDColleen
[2017-11-06] MEDS: Piperacillin/Tazobact 3.375 GM in Sodium Chloride 100 ML IVPB SCH ×2 (00:45→09:17)
[2017-11-06] MEDS: MethylPREDNISolone 40 mg Vial IVP SCH ×3 (06:15→17:50)
[2017-11-06 06:40] LABS: BASO % 0.1 % (0.0-2.0); LYMPH # 0.6 K/uL (1.0-4.3); LYMPH % 6.8 % (20.0-40.0); MEAN CELL VOLUME 87.7 fL (80.0-94.0); MEAN CORPUSCULAR HEMOGLOBIN 28.2 pg (27.0-31.0); MEAN CORPUSCULAR HGB CONC 32.2 g/dL (33.0-37.0); MEAN PLATELET VOLUME 8.9 fL (7.2-11.7); MONO # 0.1 K/uL (0.0-0.8); MONO % 1.7 % (0.0-10.0); NEUT # 7.6 K/uL (1.8-7.0); NEUT % 91.4 % (50.0-75.0); PLATELET COUNT 227 K/uL (130-400); RBC 4.26 Mil/uL (4.40-5.90); RED CELL DISTRIBUTION WIDTH 15.6 % (11.5-14.5); WHITE BLOOD COUNT 8.4 K/uL (4.8-10.8)
[2017-11-06 07:04] LABS: ALB/GLOB RATIO 0.9 (1.0-2.1); ALBUMIN 3.1 g/dL (3.5-5.0); CALCIUM 8.5 mg/dl (8.6-10.4); MAGNESIUM 3.1 mg/dL (1.6-2.3)
[2017-11-06] MEDS: (Novolog) Insulin Aspart, Recombinant 100 u/ml 10 ml vial SC SCH ×4 (08:03→22:05)
[2017-11-06] MEDS: Tiotropium 18 mcg Cap For Inhalation INH SCH (08:29)
[2017-11-06 08:53] LABS: ANISOCYTOSIS SLIGHT; BANDS 1 % (0-2); LYMPHOCYTE 5 % (20-40); MONOCYTE 2 % (0-10); NEUTROPHIL 92 % (50-75); PLATELET ESTIMATE NORMAL (NORMAL); TOTAL CELLS COUNTED 100
--- NOTE | 2017-11-06 09:53 | PN ---
DATE: 11/06/2017. TIME OF EVALUATION: 6:55 a.m. NEUROLOGICAL PROBLEM: Severe cerebrovascular disease with aneurysm, change in mental status. PHYSICAL EXAMINATION: VITAL SIGNS: Blood pressure 155/90, mean artery pressure of 111, pulse rate is 66, respiratory rate 18 on BiPAP. NEUROLOGIC: The patient is arousable verbally as well as to tactile stimuli. He follows one to two-step command. Slight right and left confusion. Again the right mild hemiparesis noted. The patient was moved to the unit since yesterday because of respiratory failure with new pneumonia as per the CAT scan. The patient is scheduled to have MRI of the brain and MR angiogram which was on hold at present. RECOMMENDATIONS: 1. CT of the head without contrast to rule out any new left subcortical dysfunction which could explain his right mild weakness. The patient should be on antiplatelets. As per his , the patient is supposed to take aspirin and Plavix. However, both were on hold at the time he was admitted and Plavix was resumed yesterday depending on the CAT scan result aspirin will be placed in addition to Plavix. 2. When medically stable, the patient can be sent for MRI for the brain and MR angiogram today. Arslan Carl MD MTDD
--- NOTE | 2017-11-06 09:55 | CP.PCM.PN ---
Subjective - Date & Time of Evaluation Date of Evaluation: 11/06/17 Time of Evaluation: 08:30 - Subjective Subjective: patient seen and examined in the intensive care unit Patient remains on BiPAP FiO2 30% Afebrile No chest pain Seen by neurology Objective - Vital Signs/Intake and Output Vital Signs (last 24 hours): Temp Pulse Resp BP Pulse Ox 97.6 F 70 16 137/78 94 L 11/06/17 08:00 11/06/17 08:01 11/06/17 08:01 11/06/17 08:01 11/06/17 08:01 Intake and Output: 11/06/17 11/06/17 06:59 18:59 Intake Total 380 0 Output Total 830 75 Balance -450 -75 - Medications Medications: Current Medications Albuterol/Ipratropium (Duoneb 3 Mg/0.5 Mg (3 Ml) Ud) 3 ml INH RQ4 [facility] Allopurinol (Zyloprim) 100 mg PO DAILY [facility] Clonidine HCl (Catapres) 0.1 mg PO BID [facility] Last Admin: 11/05/17 18:15 Dose: Not Given Clopidogrel Bisulfate (Plavix) 75 mg PO DAILY [facility] Last Admin: 11/05/17 10:00 Dose: 75 mg Famotidine (Pepcid) 20 mg IVP Q12H [facility] Last Admin: 11/05/17 22:15 Dose: 20 mg Furosemide (Lasix) 40 mg IVP DAILY [facility] Last Admin: 11/05/17 10:00 Dose: 40 mg Heparin Sodium (Porcine) (Heparin) 5,000 units SC Q8 [facility] Last Admin: 11/06/17 06:15 Dose: 5,000 units Hydralazine HCl (Apresoline) 25 mg PO Q8H [facility] Last Admin: 11/06/17 01:00 Dose: Not Given Piperacillin Sod/Tazobactam (Sod 3.375 gm/ Sodium Chloride) 100 mls @ 100 mls/ hr IVPB Q8H [facility] Last Admin: 11/06/17 09:17 Dose: 100 mls/hr Azithromycin 500 mg/ Sodium (Chloride) 250 mls @ 250 mls/hr IVPB Q24H [facility] Last Admin: 11/05/17 17:52 Dose: 250 mls/hr Insulin Aspart (Novolog) 0 unit SC ACHS [facility] PRN Reason: Protocol Last Admin: 11/06/17 08:03 Dose: Not Given Insulin Glargine (Lantus) 30 unit SC DAILY [facility] Last Admin: 11/05/17 12:49 Dose: 30 units Losartan Potassium (Cozaar) 100 mg PO DAILY [facility] Last Admin: 11/05/17 11:00 Dose: 100 mg Methylprednisolone (Solu-Medrol) 40 mg IVP Q6 [facility] Last Admin: 11/06/17 06:15 Dose: 40 mg Metoprolol Tartrate (Lopressor) 50 mg PO BID [facility] Last Admin: 11/05/17 18:15 Dose: Not Given [id number] Ethyl Esters (Lovaza) 2 gm PO BID [facility] Last Admin: 11/05/17 19:21 Dose: Not Given Oseltamivir Phosphate (Tamiflu Susp) 30 mg PO BID [facility] Stop: 11/08/17 09:57 Last Admin: 11/05/17 18:36 Dose: 30 mg Rosuvastatin Calcium (Crestor) 5 mg PO [facility] - Labs Labs: 11/06/17 06:32 11/06/17 06:30 PT 12.5 SECONDS (9.7-12.2) H 11/02/17 15:50 INR 1.1 11/02/17 15:50 APTT 38 SECONDS (21-34) H 11/02/17 15:50 - Head Exam Head Exam: ATRAUMATIC, NORMOCEPHALIC - ENT Exam ENT Exam: Mucous Membranes Moist - Neck Exam Neck Exam: Normal Inspection - Respiratory Exam Respiratory Exam: Decreased Breath Sounds - Cardiovascular Exam Cardiovascular Exam: REGULAR RHYTHM - GI/Abdominal Exam GI & Abdominal Exam: Soft, Normal Bowel Sounds - Extremities Exam Extremities Exam: Pedal Edema Assessment and Plan (1) Respiratory failure with hypercapnia Assessment & Plan: Oxygenation improving With normal pH and pCO2 Continue antibiotics and BiPAP for now Followup chest x-ray Continue IV steroids Cardiac catheter when stable Patient seen by neurology and scheduled for MRI Status: Acute (2) Pneumonia Status: Acute (3) Influenza A Status: Acute
[2017-11-06] MEDS: (Lantus) Insulin Glargine, Recombinant SC SCH (10:44)
[2017-11-06] MEDS: Omega-3-Acid Ethyl Esters 1 GM Cap PO SCH ×2 (10:45→17:47)
[2017-11-06] MEDS: Oseltamivir 6 MG/ML PO SCH ×2 (10:46→17:50)
--- NOTE | 2017-11-06 10:56 | CP.CCUPN ---
<Obey Rivers - Last Filed: 11/06/17 10:53> CCU Subjective - Physician Review Subjective (Free Text): Patient seen and examined. Patient AAOx3. Comfortable, offered no complaints. Put on Nasal cannula today and will attempt out of bed to chair. CCU Objective - Vital Signs / Intake & Output Vital Signs (Last 4 hours): Vital Signs Temp Pulse Resp BP Pulse Ox 11/06/17 10:04 170/100 H 11/06/17 08:01 70 16 137/78 94 L 11/06/17 08:00 97.6 F 71 12 94 L 11/06/17 07:55 76 13 144/92 H 97 11/06/17 07:02 86 13 153/100 H 96 Intake and Output (Last 8hrs): Intake & Output 11/05/17 11/06/17 11/06/17 22:59 06:59 14:59 Intake Total 580 100 0 Output Total 370 590 75 Balance 210 -490 -75 Weight 187 lb 9.814 oz Intake: Intake, IV Amount 550 100 0 Right Antecubital 550 100 0 Oral 30 Output: Urine 370 590 75 Urethral ([place]) 370 590 75 Other: # Bowel Movements 1 1 0 - Medications Active Medications: Active Medications Generic Name Dose Route Start Last Admin Trade Name Freq PRN Reason Stop Dose Admin Albuterol/Ipratropium 3 ml 11/06/17 12:00 Duoneb 3 Mg/0.5 Mg (3 Ml) Ud INH RQ4 R[facility]OLPH Allopurinol 100 mg 11/06/17 10:00 11/06/17 10:06 Zyloprim PO 100 mg DAILY [facility] Administration Clonidine HCl 0.1 mg 11/03/17 11:00 11/06/17 10:04 Catapres PO 0.1 mg BID [facility] Administration Clopidogrel Bisulfate 75 mg 11/03/17 10:00 11/06/17 10:05 Plavix PO 75 mg DAILY [facility] Administration Famotidine 20 mg 11/03/17 10:00 11/06/17 10:05 Pepcid IVP 20 mg Q12H [facility] Administration Furosemide 40 mg 11/03/17 10:00 11/06/17 10:04 Lasix IVP 40 mg DAILY [facility] Administration Heparin Sodium (Porcine) 5,000 units 11/02/17 22:00 11/06/17 06:15 Heparin SC 5,000 units Q8 [facility] Administration Hydralazine HCl 25 mg 11/03/17 17:00 11/06/17 10:04 Apresoline PO 25 mg Q8H [facility] Administration Piperacillin Sod/Tazobactam 100 mls @ 100 mls/hr 11/04/17 01:00 11/06/17 09: 17 Sod 3.375 gm/ Sodium Chloride IVPB 100 mls/hr Q8H [facility] Administration Azithromycin 500 mg/ Sodium 250 mls @ 250 mls/hr 11/04/17 18:00 11/05/17 17: 52 Chloride IVPB 250 mls/hr Q24H [facility] Administration Insulin Aspart 0 unit 11/03/17 16:30 11/06/17 08:03 Novolog SC Not Given [facility] Protocol Insulin Glargine 30 unit 11/04/17 10:00 11/06/17 10:44 Lantus SC 30 units DAILY [facility] Administration Losartan Potassium 100 mg 11/03/17 10:00 11/06/17 10:04 Cozaar PO 100 mg DAILY [facility] Administration Methylprednisolone 40 mg 11/04/17 12:00 11/06/17 06:15 Solu-Medrol IVP 40 mg Q6 [facility] Administration Metoprolol Tartrate 50 mg 11/03/17 18:00 11/06/17 10:05 Lopressor PO 50 mg BID [facility] Administration [id number] Ethyl Esters 2 gm 11/03/17 10:00 11/06/17 10:45 Lovaza PO 2 gm BID [facility] Administration Oseltamivir Phosphate 30 mg 11/03/17 10:00 11/06/17 10:46 Tamiflu Susp PO 11/08/17 09:57 30 mg BID [facility] Administration Rosuvastatin Calcium 5 mg 11/06/17 22:00 Crestor PO HS [facility] - Patient Studies Lab Studies: Microbiology Studies 11/03/17 18:50 Blood Culture - Preliminary Blood NO GROWTH AFTER 48 HOURS 11/03/17 18:50 Blood Culture - Preliminary Blood NO GROWTH AFTER 48 HOURS 11/02/17 18:00 Blood Culture - Preliminary Blood NO GROWTH AFTER 3 DAYS 11/02/17 15:35 S.aureus & Coag-Neg Staph PNA FISH - Final Blood Blood Culture - Final Coagulase Neg Staphylococcus Gram Stain - Final Lab Studies 02/16/18 02/16/18 02/16/18 Range/Units 07:53 06:32 06:30 WBC 8.4 (4.8-10.8) K/uL RBC 4.26 L (4.40-5.90) Mil/uL Hgb 12.0 (12.0-18.0) g/dL Hct 37.4 (35.0-51.0) % MCV 87.7 (80.0-94.0) fL MCH 28.2 (27.0-31.0) pg MCHC 32.2 L (33.0-37.0) g/dL RDW 15.6 H (11.5-14.5) % Plt Count 227 (130-400) K/uL MPV 8.9 (7.2-11.7) fL Neut % (Auto) 91.4 H (50.0-75.0) % Lymph % (Auto) 6.8 L (20.0-40.0) % [place] % (Auto) 1.7 (0.0-10.0) % Eos % (Auto) 0.0 (0.0-4.0) % Baso % (Auto) 0.1 (0.0-2.0) % Neut # (Auto) 7.6 H (1.8-7.0) K/uL Lymph # (Auto) 0.6 L (1.0-4.3) K/uL [place] # (Auto) 0.1 (0.0-0.8) K/uL Eos # (Auto) 0.0 (0.0-0.7) K/uL Baso # (Auto) 0.0 (0.0-0.2) K/uL Neutrophils % (Manual) 92 H (50-75) % Band Neutrophils % 1 (0-2) % Lymphocytes % (Manual) 5 L (20-40) % Monocytes % (Manual) 2 (0-10) % Platelet Estimate Normal (NORMAL) Anisocytosis (manual) Slight Puncture Site pCO2 (35-45) mm/Hg pO2 (80-100) mm/Hg HCO3 (21-28) mmol/L ABG pH (7.35-7.45) ABG Total CO2 (22-28) mmol/L ABG O2 Saturation (95-98) % ABG Base Excess (-2.0-3.0) mmol/L Luis Carlos Test ABG Potassium (3.6-5.2) mmol/L A-a O2 Difference mm/Hg Respiratory Index Sodium 146 (132-148) mmol/l Chloride 104 (98-107) mmol/L Glucose (75-110) mg/dl Lactate (0.7-2.1) mmol/L Vent Mode FiO2 % Inspiratory BiPAP Expiratory BiPAP Potassium 4.5 (3.6-5.2) mmol/L Carbon Dioxide 32 H (22-30) mmol/L Anion Gap 14 (10-20) BUN 61 H (9-20) mg/dL Creatinine 2.6 H (0.8-1.5) mg/dL Est GFR ( Amer) 30 Est GFR (Non-Af Amer) 25 POC Glucose (mg/dL) 163 H (65-110) mg/dL Random Glucose 170 H (75-110) mg/dL Calcium 8.5 L (8.6-10.4) mg/dl Phosphorus 5.7 H (2.5-4.5) mg/dL Magnesium 3.1 H (1.6-2.3) mg/dL Total Bilirubin 0.4 (0.2-1.3) mg/dL AST 14 L (17-59) U/L ALT 19 L (21-72) U/L Alkaline Phosphatase 49 (38-126) U/L Total Protein 6.5 (6.3-8.3) g/dL Albumin 3.1 L (3.5-5.0) g/dL Globulin 3.4 (2.2-3.9) gm/dL Albumin/Globulin Ratio 0.9 L (1.0-2.1) Procalcitonin (0.19-0.49) NG/ML Arterial Blood Potassium (3.6-5.2) mmol/L Ur L.pneumophila Ag (NEGATIVE) Mycoplasma pneumon IgM (NEGATIVE) 11/05/17 11/05/17 11/05/17 Range/Units 20:30 19:50 16:18 WBC (4.8-10.8) K/uL RBC (4.40-5.90) Mil/uL Hgb (12.0-18.0) g/dL Hct (35.0-51.0) % MCV (80.0-94.0) fL MCH (27.0-31.0) pg MCHC (33.0-37.0) g/dL RDW (11.5-14.5) % Plt Count (130-400) K/uL MPV (7.2-11.7) fL Neut % (Auto) (50.0-75.0) % Lymph % (Auto) (20.0-40.0) % [place] % (Auto) (0.0-10.0) % Eos % (Auto) (0.0-4.0) % Baso % (Auto) (0.0-2.0) % Neut # (Auto) (1.8-7.0) K/uL Lymph # (Auto) (1.0-4.3) K/uL [place] # (Auto) (0.0-0.8) K/uL Eos # (Auto) (0.0-0.7) K/uL Baso # (Auto) (0.0-0.2) K/uL Neutrophils % (Manual) (50-75) % Band Neutrophils % (0-2) % Lymphocytes % (Manual) (20-40) % Monocytes % (Manual) (0-10) % Platelet Estimate (NORMAL) Anisocytosis (manual) Puncture Site Rr Rr pCO2 50 H 66 H (35-45) mm/Hg pO2 87 141 H (80-100) mm/Hg HCO3 30.8 H 30.1 H (21-28) mmol/L ABG pH 7.43 7.33 L (7.35-7.45) ABG Total CO2 34.7 H 36.8 H (22-28) mmol/L ABG O2 Saturation 98.0 99.4 H (95-98) % ABG Base Excess 7.5 H 6.6 H (-2.0-3.0) mmol/L Luis Carlos Test Unable Unable ABG Potassium 4.6 4.6 (3.6-5.2) mmol/L A-a O2 Difference 64.0 133.0 mm/Hg Respiratory Index 0.7 0.9 Sodium 144.0 144.0 (132-148) mmol/l Chloride 110.0 H 109.0 H (98-107) mmol/L Glucose 194 H 188 H (75-110) mg/dl Lactate 0.8 0.6 L (0.7-2.1) mmol/L Vent Mode Bipap Bipap FiO2 30.0 50.0 % Inspiratory BiPAP 15 12 Expiratory BiPAP 5 6 Potassium (3.6-5.2) mmol/L Carbon Dioxide (22-30) mmol/L Anion Gap (10-20) BUN (9-20) mg/dL Creatinine (0.8-1.5) mg/dL Est GFR ( Amer) Est GFR (Non-Af Amer) POC Glucose (mg/dL) 176 H (65-110) mg/dL Random Glucose (75-110) mg/dL Calcium (8.6-10.4) mg/dl Phosphorus (2.5-4.5) mg/dL Magnesium (1.6-2.3) mg/dL Total Bilirubin (0.2-1.3) mg/dL AST (17-59) U/L ALT (21-72) U/L Alkaline Phosphatase (38-126) U/L Total Protein (6.3-8.3) g/dL Albumin (3.5-5.0) g/dL Globulin (2.2-3.9) gm/dL Albumin/Globulin Ratio (1.0-2.1) Procalcitonin (0.19-0.49) NG/ML Arterial Blood Potassium 4.6 4.6 (3.6-5.2) mmol/L Ur L.pneumophila Ag (NEGATIVE) Mycoplasma pneumon IgM (NEGATIVE) 11/05/17 11/05/17 11/05/17 Range/Units 15:52 11:03 07:38 WBC (4.8-10.8) K/uL RBC (4.40-5.90) Mil/uL Hgb (12.0-18.0) g/dL Hct (35.0-51.0) % MCV (80.0-94.0) fL MCH (27.0-31.0) pg MCHC (33.0-37.0) g/dL RDW (11.5-14.5) % Plt Count (130-400) K/uL MPV (7.2-11.7) fL Neut % (Auto) (50.0-75.0) % Lymph % (Auto) (20.0-40.0) % [place] % (Auto) (0.0-10.0) % Eos % (Auto) (0.0-4.0) % Baso % (Auto) (0.0-2.0) % Neut # (Auto) (1.8-7.0) K/uL Lymph # (Auto) (1.0-4.3) K/uL [place] # (Auto) (0.0-0.8) K/uL Eos # (Auto) (0.0-0.7) K/uL Baso # (Auto) (0.0-0.2) K/uL Neutrophils % (Manual) (50-75) % Band Neutrophils % (0-2) % Lymphocytes % (Manual) (20-40) % Monocytes % (Manual) (0-10) % Platelet Estimate (NORMAL) Anisocytosis (manual) Puncture Site pCO2 (35-45) mm/Hg pO2 (80-100) mm/Hg HCO3 (21-28) mmol/L ABG pH (7.35-7.45) ABG Total CO2 (22-28) mmol/L ABG O2 Saturation (95-98) % ABG Base Excess (-2.0-3.0) mmol/L Luis Carlos Test ABG Potassium (3.6-5.2) mmol/L A-a O2 Difference mm/Hg Respiratory Index Sodium (132-148) mmol/l Chloride (98-107) mmol/L Glucose (75-110) mg/dl Lactate (0.7-2.1) mmol/L Vent Mode FiO2 % Inspiratory BiPAP Expiratory BiPAP Potassium (3.6-5.2) mmol/L Carbon Dioxide (22-30) mmol/L Anion Gap (10-20) BUN (9-20) mg/dL Creatinine (0.8-1.5) mg/dL Est GFR ( Amer) Est GFR (Non-Af Amer) POC Glucose (mg/dL) 163 H 212 H (65-110) mg/dL Random Glucose (75-110) mg/dL Calcium (8.6-10.4) mg/dl Phosphorus (2.5-4.5) mg/dL Magnesium (1.6-2.3) mg/dL Total Bilirubin (0.2-1.3) mg/dL AST (17-59) U/L ALT (21-72) U/L Alkaline Phosphatase (38-126) U/L Total Protein (6.3-8.3) g/dL Albumin (3.5-5.0) g/dL Globulin (2.2-3.9) gm/dL Albumin/Globulin Ratio (1.0-2.1) Procalcitonin 0.05 L (0.19-0.49) NG/ML Arterial Blood Potassium (3.6-5.2) mmol/L Ur L.pneumophila Ag (NEGATIVE) Mycoplasma pneumon IgM (NEGATIVE) 11/04/17 Range/Units 21:53 WBC (4.8-10.8) K/uL RBC (4.40-5.90) Mil/uL Hgb (12.0-18.0) g/dL Hct (35.0-51.0) % MCV (80.0-94.0) fL MCH (27.0-31.0) pg MCHC (33.0-37.0) g/dL RDW (11.5-14.5) % Plt Count (130-400) K/uL MPV (7.2-11.7) fL Neut % (Auto) (50.0-75.0) % Lymph % (Auto) (20.0-40.0) % [place] % (Auto) (0.0-10.0) % Eos % (Auto) (0.0-4.0) % Baso % (Auto) (0.0-2.0) % Neut # (Auto) (1.8-7.0) K/uL Lymph # (Auto) (1.0-4.3) K/uL [place] # (Auto) (0.0-0.8) K/uL Eos # (Auto) (0.0-0.7) K/uL Baso # (Auto) (0.0-0.2) K/uL Neutrophils % (Manual) (50-75) % Band Neutrophils % (0-2) % Lymphocytes % (Manual) (20-40) % Monocytes % (Manual) (0-10) % Platelet Estimate (NORMAL) Anisocytosis (manual) Puncture Site pCO2 (35-45) mm/Hg pO2 (80-100) mm/Hg HCO3 (21-28) mmol/L ABG pH (7.35-7.45) ABG Total CO2 (22-28) mmol/L ABG O2 Saturation (95-98) % ABG Base Excess (-2.0-3.0) mmol/L Luis Carlos Test ABG Potassium (3.6-5.2) mmol/L A-a O2 Difference mm/Hg Respiratory Index Sodium (132-148) mmol/l Chloride (98-107) mmol/L Glucose (75-110) mg/dl Lactate (0.7-2.1) mmol/L Vent Mode FiO2 % Inspiratory BiPAP Expiratory BiPAP Potassium (3.6-5.2) mmol/L Carbon Dioxide (22-30) mmol/L Anion Gap (10-20) BUN (9-20) mg/dL Creatinine (0.8-1.5) mg/dL Est GFR ( Amer) Est GFR (Non-Af Amer) POC Glucose (mg/dL) (65-110) mg/dL Random Glucose (75-110) mg/dL Calcium (8.6-10.4) mg/dl Phosphorus (2.5-4.5) mg/dL Magnesium (1.6-2.3) mg/dL Total Bilirubin (0.2-1.3) mg/dL AST (17-59) U/L ALT (21-72) U/L Alkaline Phosphatase (38-126) U/L Total Protein (6.3-8.3) g/dL Albumin (3.5-5.0) g/dL Globulin (2.2-3.9) gm/dL Albumin/Globulin Ratio (1.0-2.1) Procalcitonin (0.19-0.49) NG/ML Arterial Blood Potassium (3.6-5.2) mmol/L Ur L.pneumophila Ag Negative (NEGATIVE) Mycoplasma pneumon IgM Negative (NEGATIVE) Laboratory Results - last 24 hr 11/04/17 11/05/17 11/05/17 21:53 07:38 11:03 WBC RBC Hgb Hct MCV MCH MCHC RDW Plt Count MPV Neut % (Auto) Lymph % (Auto) [place] % (Auto) Eos % (Auto) Baso % (Auto) Neut # (Auto) Lymph # (Auto) [place] # (Auto) Eos # (Auto) Baso # (Auto) Neutrophils % (Manual) Band Neutrophils % Lymphocytes % (Manual) Monocytes % (Manual) Platelet Estimate Anisocytosis (manual) Puncture Site pCO2 pO2 HCO3 ABG pH ABG Total CO2 ABG O2 Saturation ABG Base Excess Luis Carlos Test ABG Potassium A-a O2 Difference Respiratory Index Sodium Chloride Glucose Lactate Vent Mode FiO2 Inspiratory BiPAP Expiratory BiPAP Potassium Carbon Dioxide Anion Gap BUN Creatinine Est GFR ( Amer) Est GFR (Non-Af Amer) POC Glucose (mg/dL) 212 H Random Glucose Calcium Phosphorus Magnesium Total Bilirubin AST ALT Alkaline Phosphatase Total Protein Albumin Globulin Albumin/Globulin Ratio Procalcitonin 0.05 L Arterial Blood Potassium Ur L.pneumophila Ag Negative Mycoplasma pneumon IgM Negative 11/05/17 11/05/17 11/05/17 15:52 16:18 19:50 WBC RBC Hgb Hct MCV MCH MCHC RDW Plt Count MPV Neut % (Auto) Lymph % (Auto) [place] % (Auto) Eos % (Auto) Baso % (Auto) Neut # (Auto) Lymph # (Auto) [place] # (Auto) Eos # (Auto) Baso # (Auto) Neutrophils % (Manual) Band Neutrophils % Lymphocytes % (Manual) Monocytes % (Manual) Platelet Estimate Anisocytosis (manual) Puncture Site Rr pCO2 66 H pO2 141 H HCO3 30.1 H ABG pH 7.33 L ABG Total CO2 36.8 H ABG O2 Saturation 99.4 H ABG Base Excess 6.6 H Luis Carlos Test Unable ABG Potassium 4.6 A-a O2 Difference 133.0 Respiratory Index 0.9 Sodium 144.0 Chloride 109.0 H Glucose 188 H Lactate 0.6 L Vent Mode Bipap FiO2 50.0 Inspiratory BiPAP 12 Expiratory BiPAP 6 Potassium Carbon Dioxide Anion Gap BUN Creatinine Est GFR ( Amer) Est GFR (Non-Af Amer) POC Glucose (mg/dL) 163 H 176 H Random Glucose Calcium Phosphorus Magnesium Total Bilirubin AST ALT Alkaline Phosphatase Total Protein Albumin Globulin Albumin/Globulin Ratio Procalcitonin Arterial Blood Potassium 4.6 Ur L.pneumophila Ag Mycoplasma pneumon IgM 11/05/17 11/06/17 11/06/17 20:30 06:30 06:32 WBC 8.4 RBC 4.26 L Hgb 12.0 Hct 37.4 MCV 87.7 MCH 28.2 MCHC 32.2 L RDW 15.6 H Plt Count 227 MPV 8.9 Neut % (Auto) 91.4 H Lymph % (Auto) 6.8 L [place] % (Auto) 1.7 Eos % (Auto) 0.0 Baso % (Auto) 0.1 Neut # (Auto) 7.6 H Lymph # (Auto) 0.6 L [place] # (Auto) 0.1 Eos # (Auto) 0.0 Baso # (Auto) 0.0 Neutrophils % (Manual) 92 H Band Neutrophils % 1 Lymphocytes % (Manual) 5 L Monocytes % (Manual) 2 Platelet Estimate Normal Anisocytosis (manual) Slight Puncture Site Rr pCO2 50 H pO2 87 HCO3 30.8 H ABG pH 7.43 ABG Total CO2 34.7 H ABG O2 Saturation 98.0 ABG Base Excess 7.5 H Luis Carlos Test Unable ABG Potassium 4.6 A-a O2 Difference 64.0 Respiratory Index 0.7 Sodium 144.0 146 Chloride 110.0 H 104 Glucose 194 H Lactate 0.8 Vent Mode Bipap FiO2 30.0 Inspiratory BiPAP 15 Expiratory BiPAP 5 Potassium 4.5 Carbon Dioxide 32 H Anion Gap 14 BUN 61 H Creatinine 2.6 H Est GFR ( Amer) 30 Est GFR (Non-Af Amer) 25 POC Glucose (mg/dL) Random Glucose 170 H Calcium 8.5 L Phosphorus 5.7 H Magnesium 3.1 H Total Bilirubin 0.4 AST 14 L ALT 19 L Alkaline Phosphatase 49 Total Protein 6.5 Albumin 3.1 L Globulin 3.4 Albumin/Globulin Ratio 0.9 L Procalcitonin Arterial Blood Potassium 4.6 Ur L.pneumophila Ag Mycoplasma pneumon IgM 11/06/17 07:53 WBC RBC Hgb Hct MCV MCH MCHC RDW Plt Count MPV Neut % (Auto) Lymph % (Auto) [place] % (Auto) Eos % (Auto) Baso % (Auto) Neut # (Auto) Lymph # (Auto) [place] # (Auto) Eos # (Auto) Baso # (Auto) Neutrophils % (Manual) Band Neutrophils % Lymphocytes % (Manual) Monocytes % (Manual) Platelet Estimate Anisocytosis (manual) Puncture Site pCO2 pO2 HCO3 ABG pH ABG Total CO2 ABG O2 Saturation ABG Base Excess Luis Carlos Test ABG Potassium A-a O2 Difference Respiratory Index Sodium Chloride Glucose Lactate Vent Mode FiO2 Inspiratory BiPAP Expiratory BiPAP Potassium Carbon Dioxide Anion Gap BUN Creatinine Est GFR ( Amer) Est GFR (Non-Af Amer) POC Glucose (mg/dL) 163 H Random Glucose Calcium Phosphorus Magnesium Total Bilirubin AST ALT Alkaline Phosphatase Total Protein Albumin Globulin Albumin/Globulin Ratio Procalcitonin Arterial Blood Potassium Ur L.pneumophila Ag Mycoplasma pneumon IgM Fingerstick Blood Sugar Results: 176 - Procedures Procedures (Free Text): - Constitutional Appears: Non-toxic, No Acute Distress - Head Exam Head Exam: ATRAUMATIC, NORMOCEPHALIC - Eye Exam Eye Exam: Normal appearance - ENT Exam ENT Exam: Mucous Membranes Moist - Neck Exam Neck Exam: Full ROM. absent: Tenderness - Respiratory Exam Respiratory Exam: Decreased Breath Sounds, Wheezes - Cardiovascular Exam Cardiovascular Exam: REGULAR RHYTHM, 2+ pitting edema LE - GI/Abdominal Exam GI & Abdominal Exam: Soft, Normal Bowel Sounds. absent: Distended, Tenderness - Neurological Exam Neurological Exam: AAOx3, Awake, Alert responsive to both verbal and nonverbal stimuli - Skin Skin Exam: Intact, Normal Color Review of Systems - Review of Systems All systems: reviewed and no additional remarkable complaints except (as above) Critical Care Progress Note - Nutrition Nutrition: Nutrition Category Date Time Status Heart Healthy Diet [DIET] Diets 11/06/17 Breakfast Active Assessment/Plan - Assessment and Plan (Free Text) Assessment: 67 year old M with multiple medical problems (as listed below) admitted for shortness of breath/CHF exacerbation found to have multifocal pneumonia and positive for the Flu: ID: Multifocal Pneumonia, Flu CXR 11/02: left apical and right basilar opacities. possible multifocal pneumonia , small right pleural effusion Influenza A positive Azithromycin 500mg IV QD Tamiflu 30mg PO BID Zosyn 3.375g IV TID Discontinued Vancomycin 1g IV QD today 11/06/17 as patient not positive for MRSA Blood Culture 11/02 (+) for Coagulase Negative Staphyloccus, Repeat Blood Culture negative up to date Legionella NEGATIVE, Mycoplasma NEGATIVE, Procalcitonin NEGATIVE, F/U MRSA screen Cardio: CHF exacerbation, CAD s/p CABG, Afib, HTN Cardio Dr Butler on board EKG 11/02: sinus arrhythmia, RBBB, left anterior fascicular block, possible LVH BNP 11/02: 2,630 Scheduled for cardiac cath 11/05 however might have to be postponed due to acute hypoxia Clonidine 0.1mg PO BID Clopidogrel 75mg PO QD Hydralazine 25mg PO TID Losartan 100mg PO QD Crestor 5mg PO HS Pulm: COPD, Multifocal Pneumonia Pulm Dr Alves on board CXR 2/12: left apical and right basilar opacities. possible multifocal pneumonia , small right pleural effusion CT chest 11/04: multifocal left-sided consolidation. Follow-up to rule out underlying neoplasm. Left pleural effusion and pleural fluid within right major and minor fissures. Marked cardiomegaly with evidence of CABG. Aneurysmal dilation of the ascending thoracic aorta and dilatation of the main pulmonary artery. Old anterior wedge compression deformity of the T4 vertebra. Postsurgical deformity of right 5th and 6th ribs. Cholelithiasis. Lasix 40mg IV QD Methylprednisolone 40mg IV Q6 Spiriva 18mcg INH QD Endo: DM ISS Insulin Glargine 30u SC QD Neuro: basilar aneurysm, Hx of TIA Neuro Dr Carl on board Mild right hemiparesis F/U Brain without contrast F/U MRA Head without contrast Renal: Acute Renal Failure Eleavted BUN/Cr Psych: Delusional Disorder Psych Dr Mills on board Agitation seen on this admission - sensitive to Benzo given during agitation 1:1 obs Rheum: Gout/Hyperuricemia Con't home med Allopurinol 100mg PO BID (however will give QD due to poor renal function) GI: no active issues Start heart healthy diet today 11/06 Prophylatic Measures: Pepcid 20mg IV BID [place]-3 2g PO BID Heparin 5000u SC TID <David Villegas M - Last Filed: 11/06/17 17:31> CCU Objective - Vital Signs / Intake & Output Vital Signs (Last 4 hours): Vital Signs Temp Pulse Resp BP Pulse Ox 11/06/17 16:44 97.8 F 69 20 173/92 H 11/06/17 15:02 81 15 158/97 H 97 11/06/17 15:00 71 21 95 11/06/17 14:03 73 11 L 149/93 H 96 11/06/17 14:00 75 13 94 L Intake and Output (Last 8hrs): Intake & Output 11/06/17 11/06/17 11/06/17 06:59 14:59 22:59 Intake Total 100 600 0 Output Total 590 875 75 Balance -490 -275 -75 Weight 187 lb 9.814 oz 187 lb 9.814 oz Intake: Intake, IV Amount 100 100 Right Antecubital 100 100 Oral 500 0 Output: Urine 590 875 75 Urethral ([place]) 590 875 75 Other: # Bowel Movements 1 0 0 - Medications Active Medications: Active Medications Generic Name Dose Route Start Last Admin Trade Name Freq PRN Reason Stop Dose Admin Albuterol/Ipratropium 3 ml 11/06/17 12:00 11/06/17 11:57 Duoneb 3 Mg/0.5 Mg (3 Ml) Ud INH 3 ml RQ4 [facility] Administration Allopurinol 100 mg 11/06/17 10:00 11/06/17 10:06 Zyloprim PO 100 mg DAILY [facility] Administration Amlodipine Besylate 5 mg 11/06/17 14:30 11/06/17 15:07 Norvasc PO 5 mg DAILY [facility] Administration Clonidine HCl 0.1 mg 11/03/17 11:00 11/06/17 10:04 Catapres PO 0.1 mg BID [facility] Administration Clopidogrel Bisulfate 75 mg 11/03/17 10:00 11/06/17 10:05 Plavix PO 75 mg DAILY [facility] Administration Famotidine 20 mg 11/06/17 20:00 Pepcid PO Q12H [facility] Furosemide 40 mg 11/03/17 10:00 11/06/17 10:04 Lasix IVP 40 mg DAILY [facility] Administration Heparin Sodium (Porcine) 5,000 units 11/02/17 22:00 11/06/17 14:26 Heparin SC 5,000 units Q8 [facility] Administration Hydralazine HCl 25 mg 11/03/17 17:00 11/06/17 10:04 Apresoline PO 25 mg Q8H [facility] Administration Azithromycin 500 mg/ Sodium 250 mls @ 250 mls/hr 11/04/17 18:00 11/05/17 17: 52 Chloride IVPB 250 mls/hr Q24H [facility] Administration Piperacillin Sod/Tazobactam Sod 3.375 gm in 50 mls @ 100 mls/hr 11/06/17 17: 00 Zosyn 3.375 Gm Iv Premix IVPB Q8H [facility] Insulin Aspart 0 unit 11/03/17 16:30 11/06/17 12:08 Novolog SC 4 unit ACHS [facility] Administration Protocol Insulin Glargine 32 unit 11/06/17 14:22 Lantus SC DAILY [facility] Losartan Potassium 100 mg 11/03/17 10:00 11/06/17 10:04 Cozaar PO 100 mg DAILY [facility] Administration Methylprednisolone 40 mg 11/04/17 12:00 11/06/17 11:50 Solu-Medrol IVP 40 mg Q6 [facility] Administration Metoprolol Tartrate 50 mg 11/03/17 18:00 11/06/17 10:05 Lopressor PO 50 mg BID [facility] Administration Gjugd-2-Sole Ethyl Esters 2 gm 11/03/17 10:00 11/06/17 10:45 Lovaza PO 2 gm BID [facility] Administration Oseltamivir Phosphate 30 mg 11/03/17 10:00 11/06/17 10:46 Tamiflu Susp PO 11/08/17 09:57 30 mg BID [facility] Administration Rosuvastatin Calcium 5 mg 11/06/17 22:00 Crestor PO HS [facility] - Patient Studies Lab Studies: Microbiology Studies 11/03/17 18:50 Blood Culture - Preliminary Blood NO GROWTH AFTER 48 HOURS 11/03/17 18:50 Blood Culture - Preliminary Blood NO GROWTH AFTER 48 HOURS 11/02/17 18:00 Blood Culture - Preliminary Blood NO GROWTH AFTER 3 DAYS Lab Studies 11/06/17 11/06/17 11/06/17 Range/Units 11:38 07:53 06:32 WBC 8.4 (4.8-10.8) K/uL RBC 4.26 L (4.40-5.90) Mil/uL Hgb 12.0 (12.0-18.0) g/dL Hct 37.4 (35.0-51.0) % MCV 87.7 (80.0-94.0) fL MCH 28.2 (27.0-31.0) pg MCHC 32.2 L (33.0-37.0) g/dL RDW 15.6 H (11.5-14.5) % Plt Count 227 (130-400) K/uL MPV 8.9 (7.2-11.7) fL Neut % (Auto) 91.4 H (50.0-75.0) % Lymph % (Auto) 6.8 L (20.0-40.0) % [place] % (Auto) 1.7 (0.0-10.0) % Eos % (Auto) 0.0 (0.0-4.0) % Baso % (Auto) 0.1 (0.0-2.0) % Neut # (Auto) 7.6 H (1.8-7.0) K/uL Lymph # (Auto) 0.6 L (1.0-4.3) K/uL [place] # (Auto) 0.1 (0.0-0.8) K/uL Eos # (Auto) 0.0 (0.0-0.7) K/uL Baso # (Auto) 0.0 (0.0-0.2) K/uL Neutrophils % (Manual) 92 H (50-75) % Band Neutrophils % 1 (0-2) % Lymphocytes % (Manual) 5 L (20-40) % Monocytes % (Manual) 2 (0-10) % Platelet Estimate Normal (NORMAL) Anisocytosis (manual) Slight Puncture Site pCO2 (35-45) mm/Hg pO2 (80-100) mm/Hg HCO3 (21-28) mmol/L ABG pH (7.35-7.45) ABG Total CO2 (22-28) mmol/L ABG O2 Saturation (95-98) % ABG Base Excess (-2.0-3.0) mmol/L [place] Test ABG Potassium (3.6-5.2) mmol/L A-a O2 Difference mm/Hg Respiratory Index Sodium (132-148) mmol/l Chloride (98-107) mmol/L Glucose (75-110) mg/dl Lactate (0.7-2.1) mmol/L Vent Mode FiO2 % Inspiratory BiPAP Expiratory BiPAP Potassium (3.6-5.2) mmol/L Carbon Dioxide (22-30) mmol/L Anion Gap (10-20) BUN (9-20) mg/dL Creatinine (0.8-1.5) mg/dL Est GFR ( Amer) Est GFR (Non-Af Amer) POC Glucose (mg/dL) 229 H 163 H (65-110) mg/dL Random Glucose (75-110) mg/dL Calcium (8.6-10.4) mg/dl Phosphorus (2.5-4.5) mg/dL Magnesium (1.6-2.3) mg/dL Total Bilirubin (0.2-1.3) mg/dL AST (17-59) U/L ALT (21-72) U/L Alkaline Phosphatase (38-126) U/L Total Protein (6.3-8.3) g/dL Albumin (3.5-5.0) g/dL Globulin (2.2-3.9) gm/dL Albumin/Globulin Ratio (1.0-2.1) Arterial Blood Potassium (3.6-5.2) mmol/L Mycoplasma pneumon IgM (NEGATIVE) 11/06/17 11/05/17 11/05/17 Range/Units 06:30 20:30 19:50 WBC (4.8-10.8) K/uL RBC (4.40-5.90) Mil/uL Hgb (12.0-18.0) g/dL Hct (35.0-51.0) % MCV (80.0-94.0) fL MCH (27.0-31.0) pg MCHC (33.0-37.0) g/dL RDW (11.5-14.5) % Plt Count (130-400) K/uL MPV (7.2-11.7) fL Neut % (Auto) (50.0-75.0) % Lymph % (Auto) (20.0-40.0) % [place] % (Auto) (0.0-10.0) % Eos % (Auto) (0.0-4.0) % Baso % (Auto) (0.0-2.0) % Neut # (Auto) (1.8-7.0) K/uL Lymph # (Auto) (1.0-4.3) K/uL [place] # (Auto) (0.0-0.8) K/uL Eos # (Auto) (0.0-0.7) K/uL Baso # (Auto) (0.0-0.2) K/uL Neutrophils % (Manual) (50-75) % Band Neutrophils % (0-2) % Lymphocytes % (Manual) (20-40) % Monocytes % (Manual) (0-10) % Platelet Estimate (NORMAL) Anisocytosis (manual) Puncture Site Rr pCO2 50 H (35-45) mm/Hg pO2 87 (80-100) mm/Hg HCO3 30.8 H (21-28) mmol/L ABG pH 7.43 (7.35-7.45) ABG Total CO2 34.7 H (22-28) mmol/L ABG O2 Saturation 98.0 (95-98) % ABG Base Excess 7.5 H (-2.0-3.0) mmol/L Luis Carlos Test Unable ABG Potassium 4.6 (3.6-5.2) mmol/L A-a O2 Difference 64.0 mm/Hg Respiratory Index 0.7 Sodium 146 144.0 (132-148) mmol/l Chloride 104 110.0 H (98-107) mmol/L Glucose 194 H (75-110) mg/dl Lactate 0.8 (0.7-2.1) mmol/L Vent Mode Bipap FiO2 30.0 % Inspiratory BiPAP 15 Expiratory BiPAP 5 Potassium 4.5 (3.6-5.2) mmol/L Carbon Dioxide 32 H (22-30) mmol/L Anion Gap 14 (10-20) BUN 61 H (9-20) mg/dL Creatinine 2.6 H (0.8-1.5) mg/dL Est GFR ( Amer) 30 Est GFR (Non-Af Amer) 25 POC Glucose (mg/dL) 176 H (65-110) mg/dL Random Glucose 170 H (75-110) mg/dL Calcium 8.5 L (8.6-10.4) mg/dl Phosphorus 5.7 H (2.5-4.5) mg/dL Magnesium 3.1 H (1.6-2.3) mg/dL Total Bilirubin 0.4 (0.2-1.3) mg/dL AST 14 L (17-59) U/L ALT 19 L (21-72) U/L Alkaline Phosphatase 49 (38-126) U/L Total Protein 6.5 (6.3-8.3) g/dL Albumin 3.1 L (3.5-5.0) g/dL Globulin 3.4 (2.2-3.9) gm/dL Albumin/Globulin Ratio 0.9 L (1.0-2.1) Arterial Blood Potassium 4.6 (3.6-5.2) mmol/L Mycoplasma pneumon IgM (NEGATIVE) 11/04/17 Range/Units 21:53 WBC (4.8-10.8) K/uL RBC (4.40-5.90) Mil/uL Hgb (12.0-18.0) g/dL Hct (35.0-51.0) % MCV (80.0-94.0) fL MCH (27.0-31.0) pg MCHC (33.0-37.0) g/dL RDW (11.5-14.5) % Plt Count (130-400) K/uL MPV (7.2-11.7) fL Neut % (Auto) (50.0-75.0) % Lymph % (Auto) (20.0-40.0) % [place] % (Auto) (0.0-10.0) % Eos % (Auto) (0.0-4.0) % Baso % (Auto) (0.0-2.0) % Neut # (Auto) (1.8-7.0) K/uL Lymph # (Auto) (1.0-4.3) K/uL [place] # (Auto) (0.0-0.8) K/uL Eos # (Auto) (0.0-0.7) K/uL Baso # (Auto) (0.0-0.2) K/uL Neutrophils % (Manual) (50-75) % Band Neutrophils % (0-2) % Lymphocytes % (Manual) (20-40) % Monocytes % (Manual) (0-10) % Platelet Estimate (NORMAL) Anisocytosis (manual) Puncture Site pCO2 (35-45) mm/Hg pO2 (80-100) mm/Hg HCO3 (21-28) mmol/L ABG pH (7.35-7.45) ABG Total CO2 (22-28) mmol/L ABG O2 Saturation (95-98) % ABG Base Excess (-2.0-3.0) mmol/L Luis Carlos Test ABG Potassium (3.6-5.2) mmol/L A-a O2 Difference mm/Hg Respiratory Index Sodium (132-148) mmol/l Chloride (98-107) mmol/L Glucose (75-110) mg/dl Lactate (0.7-2.1) mmol/L Vent Mode FiO2 % Inspiratory BiPAP Expiratory BiPAP Potassium (3.6-5.2) mmol/L Carbon Dioxide (22-30) mmol/L Anion Gap (10-20) BUN (9-20) mg/dL Creatinine (0.8-1.5) mg/dL Est GFR ( Amer) Est GFR (Non-Af Amer) POC Glucose (mg/dL) (65-110) mg/dL Random Glucose (75-110) mg/dL Calcium (8.6-10.4) mg/dl Phosphorus (2.5-4.5) mg/dL Magnesium (1.6-2.3) mg/dL Total Bilirubin (0.2-1.3) mg/dL AST (17-59) U/L ALT (21-72) U/L Alkaline Phosphatase (38-126) U/L Total Protein (6.3-8.3) g/dL Albumin (3.5-5.0) g/dL Globulin (2.2-3.9) gm/dL Albumin/Globulin Ratio (1.0-2.1) Arterial Blood Potassium (3.6-5.2) mmol/L Mycoplasma pneumon IgM Negative (NEGATIVE) Laboratory Results - last 24 hr 11/04/17 11/05/17 11/05/17 21:53 19:50 20:30 WBC RBC Hgb Hct MCV MCH MCHC RDW Plt Count MPV Neut % (Auto) Lymph % (Auto) [place] % (Auto) Eos % (Auto) Baso % (Auto) Neut # (Auto) Lymph # (Auto) [place] # (Auto) Eos # (Auto) Baso # (Auto) Neutrophils % (Manual) Band Neutrophils % Lymphocytes % (Manual) Monocytes % (Manual) Platelet Estimate Anisocytosis (manual) Puncture Site Rr pCO2 50 H pO2 87 HCO3 30.8 H ABG pH 7.43 ABG Total CO2 34.7 H ABG O2 Saturation 98.0 ABG Base Excess 7.5 H Luis Carlos Test Unable ABG Potassium 4.6 A-a O2 Difference 64.0 Respiratory Index 0.7 Sodium 144.0 Chloride 110.0 H Glucose 194 H Lactate 0.8 Vent Mode Bipap FiO2 30.0 Inspiratory BiPAP 15 Expiratory BiPAP 5 Potassium Carbon Dioxide Anion Gap BUN Creatinine Est GFR ( Amer) Est GFR (Non-Af Amer) POC Glucose (mg/dL) 176 H Random Glucose Calcium Phosphorus Magnesium Total Bilirubin AST ALT Alkaline Phosphatase Total Protein Albumin Globulin Albumin/Globulin Ratio Arterial Blood Potassium 4.6 Mycoplasma pneumon IgM Negative 11/06/17 11/06/17 11/06/17 06:30 06:32 07:53 WBC 8.4 RBC 4.26 L Hgb 12.0 Hct 37.4 MCV 87.7 MCH 28.2 MCHC 32.2 L RDW 15.6 H Plt Count 227 MPV 8.9 Neut % (Auto) 91.4 H Lymph % (Auto) 6.8 L [place] % (Auto) 1.7 Eos % (Auto) 0.0 Baso % (Auto) 0.1 Neut # (Auto) 7.6 H Lymph # (Auto) 0.6 L [place] # (Auto) 0.1 Eos # (Auto) 0.0 Baso # (Auto) 0.0 Neutrophils % (Manual) 92 H Band Neutrophils % 1 Lymphocytes % (Manual) 5 L Monocytes % (Manual) 2 Platelet Estimate Normal Anisocytosis (manual) Slight Puncture Site pCO2 pO2 HCO3 ABG pH ABG Total CO2 ABG O2 Saturation ABG Base Excess Luis Carlos Test ABG Potassium A-a O2 Difference Respiratory Index Sodium 146 Chloride 104 Glucose Lactate Vent Mode FiO2 Inspiratory BiPAP Expiratory BiPAP Potassium 4.5 Carbon Dioxide 32 H Anion Gap 14 BUN 61 H Creatinine 2.6 H Est GFR ( Amer) 30 Est GFR (Non-Af Amer) 25 POC Glucose (mg/dL) 163 H Random Glucose 170 H Calcium 8.5 L Phosphorus 5.7 H Magnesium 3.1 H Total Bilirubin 0.4 AST 14 L ALT 19 L Alkaline Phosphatase 49 Total Protein 6.5 Albumin 3.1 L Globulin 3.4 Albumin/Globulin Ratio 0.9 L Arterial Blood Potassium Mycoplasma pneumon IgM 11/06/17 11:38 WBC RBC Hgb Hct MCV MCH MCHC RDW Plt Count MPV Neut % (Auto) Lymph % (Auto) [place] % (Auto) Eos % (Auto) Baso % (Auto) Neut # (Auto) Lymph # (Auto) [place] # (Auto) Eos # (Auto) Baso # (Auto) Neutrophils % (Manual) Band Neutrophils % Lymphocytes % (Manual) Monocytes % (Manual) Platelet Estimate Anisocytosis (manual) Puncture Site pCO2 pO2 HCO3 ABG pH ABG Total CO2 ABG O2 Saturation ABG Base Excess Luis Carlos Test ABG Potassium A-a O2 Difference Respiratory Index Sodium Chloride Glucose Lactate Vent Mode FiO2 Inspiratory BiPAP Expiratory BiPAP Potassium Carbon Dioxide Anion Gap BUN Creatinine Est GFR ( Amer) Est GFR (Non-Af Amer) POC Glucose (mg/dL) 229 H Random Glucose Calcium Phosphorus Magnesium Total Bilirubin AST ALT Alkaline Phosphatase Total Protein Albumin Globulin Albumin/Globulin Ratio Arterial Blood Potassium Mycoplasma pneumon IgM Critical Care Progress Note - Nutrition Nutrition: Nutrition Category Date Time Status Heart Healthy Diet [DIET] Diets 11/06/17 Breakfast Active Assessment/Plan - Assessment and Plan (Free Text) Plan: Patient seen and examined at bedside. Patient remains hemodynamically stable -continue current management - Date & Time Date: 11/06/17 Time: 13:00
--- NOTE | 2017-11-06 11:03 | RAD ---
HISTORY: f/u pneumonia COMPARISON: CT chest dated 11/04/2017. FINDINGS: LUNGS: Grossly stable appearance of patchy left-sided opacities. PLEURA: Fluid in the right minor fissure, stable. No pneumothorax apparent. CARDIOVASCULAR: Prior sternotomy with sternal wires a surgical clips redemonstrated. Atherosclerotic aortic calcifications. Cardiomediastinal silhouette stably enlarged. OSSEOUS STRUCTURES: Unchanged. VISUALIZED UPPER ABDOMEN: Normal. OTHER FINDINGS: None. IMPRESSION: No significant interval change.
--- NOTE | 2017-11-06 11:21 | CT ---
PROCEDURE: CT HEAD WITHOUT CONTRAST. HISTORY: new left sub cortical dysfunction - ??stroke COMPARISON: None available. TECHNIQUE: Axial computed tomography images were obtained through the head/brain without intravenous contrast. Radiation dose: Total exam DLP = 1209.73 mGy-cm. This CT exam was performed using one or more of the following dose reduction techniques: Automated exposure control, adjustment of the mA and/or kV according to patient size, and/or use of iterative reconstruction technique. FINDINGS: HEMORRHAGE: No intracranial hemorrhage. BRAIN: No mass effect or edema. No significant atrophy. No ischemic white matter change. 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 Left external capsule. No evidence of acute infarct. VENTRICLES: Unremarkable. No hydrocephalus. CALVARIUM: Unremarkable. PARANASAL SINUSES: Unremarkable as visualized. No significant inflammatory changes. MASTOID AIR CELLS: Unremarkable as visualized. No inflammatory changes. OTHER FINDINGS: Probable sebaceous cyst/epithelial inclusion cyst of right upper neck subcutaneous/cutaneous, 1.3 x 1.6 cm. IMPRESSION: No evidence of acute infarct. No intracranial hemorrhage.
[2017-11-06] MEDS: Albuterol-Ipratrop 3 mg / 0.5 (3 ml) UD INH SCH ×2 (11:57→19:03)
--- NOTE | 2017-11-06 14:16 | CP.PCM.PN ---
Subjective - Date & Time of Evaluation Date of Evaluation: 11/06/17 Time of Evaluation: 09:00 - Subjective Subjective: Patient seen- remained in ICU- by bedside- patient on BIPAP- arousable with difficulty, conversant , disoriented to place and time , no active sign and symptoms like cough vomiting discussion of condition Objective - Vital Signs/Intake and Output Vital Signs (last 24 hours): Temp Pulse Resp BP Pulse Ox 98.4 F 75 16 150/91 H 100 11/06/17 12:00 11/06/17 12:01 11/06/17 12:01 11/06/17 12:01 11/06/17 12:01 Intake and Output: 11/06/17 11/06/17 06:59 18:59 Intake Total 380 600 Output Total 830 650 Balance -450 -50 - Medications Medications: Current Medications Albuterol/Ipratropium (Duoneb 3 Mg/0.5 Mg (3 Ml) Ud) 3 ml INH RQ4 [facility] Last Admin: 11/06/17 11:57 Dose: 3 ml Allopurinol (Zyloprim) 100 mg PO DAILY [facility] Last Admin: 11/06/17 10:06 Dose: 100 mg Clonidine HCl (Catapres) 0.1 mg PO BID [facility] Last Admin: 11/06/17 10:04 Dose: 0.1 mg Clopidogrel Bisulfate (Plavix) 75 mg PO DAILY [facility] Last Admin: 11/06/17 10:05 Dose: 75 mg Famotidine (Pepcid) 20 mg IVP Q12H [facility] Last Admin: 11/06/17 10:05 Dose: 20 mg Furosemide (Lasix) 40 mg IVP DAILY [facility] Last Admin: 11/06/17 10:04 Dose: 40 mg Heparin Sodium (Porcine) (Heparin) 5,000 units SC Q8 [facility] Last Admin: 11/06/17 06:15 Dose: 5,000 units Hydralazine HCl (Apresoline) 25 mg PO Q8H [facility] Last Admin: 11/06/17 10:04 Dose: 25 mg Piperacillin Sod/Tazobactam (Sod 3.375 gm/ Sodium Chloride) 100 mls @ 100 mls/ hr IVPB Q8H [facility] Last Admin: 11/06/17 09:17 Dose: 100 mls/hr Azithromycin 500 mg/ Sodium (Chloride) 250 mls @ 250 mls/hr IVPB Q24H [facility] Last Admin: 11/05/17 17:52 Dose: 250 mls/hr Insulin Aspart (Novolog) 0 unit SC ACHS [facility] PRN Reason: Protocol Last Admin: 11/06/17 12:08 Dose: 4 unit Insulin Glargine (Lantus) 30 unit SC DAILY [facility] Last Admin: 11/06/17 10:44 Dose: 30 units Losartan Potassium (Cozaar) 100 mg PO DAILY [facility] Last Admin: 11/06/17 10:04 Dose: 100 mg Methylprednisolone (Solu-Medrol) 40 mg IVP Q6 [facility] Last Admin: 11/06/17 11:50 Dose: 40 mg Metoprolol Tartrate (Lopressor) 50 mg PO BID [facility] Last Admin: 11/06/17 10:05 Dose: 50 mg [id number] Ethyl Esters (Lovaza) 2 gm PO BID [facility] Last Admin: 11/06/17 10:45 Dose: 2 gm Oseltamivir Phosphate (Tamiflu Susp) 30 mg PO BID [facility] Stop: 11/08/17 09:57 Last Admin: 11/06/17 10:46 Dose: 30 mg Rosuvastatin Calcium (Crestor) 5 mg PO HS [facility] - Labs Labs: 11/06/17 06:32 11/06/17 06:30 PT 12.5 SECONDS (9.7-12.2) H 11/02/17 15:50 INR 1.1 11/02/17 15:50 APTT 38 SECONDS (21-34) H 11/02/17 15:50 - Constitutional Appears: Non-toxic (on BIPAP , not in distress ) - Eye Exam Eye Exam: Normal appearance. absent: Nystagmus - Neck Exam Neck Exam: Full ROM - Respiratory Exam Respiratory Exam: Decreased Breath Sounds - Cardiovascular Exam Cardiovascular Exam: REGULAR RHYTHM - GI/Abdominal Exam GI & Abdominal Exam: Soft, Normal Bowel Sounds. absent: Tenderness - Extremities Exam Extremities Exam: Full ROM, Normal Inspection. absent: Pedal Edema - Back Exam Back Exam: absent: rash noted, tenderness - Neurological Exam Neurological Exam: Alert, Awake ( but disoriented , quiet , conversant answers questions incorrectly ) - Skin Skin Exam: Intact, Normal Color Assessment and Plan - Assessment and Plan (Free Text) Assessment: Patient with multiple medical problems, \ CAD A FIB , unstable for further procedure IDDM2- monitoring amd insulin adjustment COPD CHF on antibiotic diuretics Pneumonia- as above with hypoxemia- on BIPAP Aneurysm Basila and ascending aorta , currently on beta blockers , BP control further discussion with
--- NOTE | 2017-11-06 16:57 | MRI ---
PROCEDURE: MRI of the brain dated 11/06/17. HISTORY: Left subcortical dysfunction COMPARISON: Correlation made with concurrent MRA brain. Comparison made with prior CT scan earlier same day. TECHNIQUE: Multiplanar, multisequence MR images of the brain were obtained without intravenous contrast enhancement. FINDINGS: HEMORRHAGE: No acute parenchymal, subarachnoid or extra-axial hemorrhage. Questionable small hemosiderin deposit located along the right anteromedial cerebellar hemisphere just posterior to the right middle cerebellar peduncle and adjacent to the right posterolateral 4th ventricle which is less well seen on this exam compared the prior exam. No obvious calcification identified in this location on CT scan. DWI: No evidence of large acute infarct so far as can be seen. BRAIN PARENCHYMA: Mild chronic periventricular white matter ischemic changes. Chronic infarct left anterolateral basal ganglia extending superiorly into the left anterior su radiata. There are also a few scattered small bilateral basal nuclei lacunar type infarcts. Small infarct right inferolateral cerebellar hemisphere. No obvious parenchymal nor extra-axial mass or collection seen on this noncontrast study. . VENTRICLES: No obstructive hydrocephalus. CRANIUM: Calvarium appears grossly unremarkable so far as can be seen. . Small elliptical shaped presumed sebaceous cyst located within the subcutaneous fat right parasagittal upper cervical/ sub occipital region not appreciated on this study. Please refer to prior CT scan of the brain for further details. ORBITS: Orbits and contents appear grossly unremarkable PARANASAL SINUSES/MASTOIDS: Clear VASCULAR SYSTEM: Visualized major vascular flow voids at skull base are patent so far as can be seen. Previously described small aneurysm arising from the proximal basilar and/or distal right vertebral artery not appreciated on this study; please refer to prior MRA brain. OTHER FINDINGS: None. IMPRESSION: Study is significantly limited by an marked motion artifact. The no evidence of acute hemorrhage or infarct. Questionable small hemosiderin deposit within the right cerebellar hemisphere. Mild chronic white matter and basal nuclei ischemic changes. Moderate volume loss.
[2017-11-06] MEDS ORDERED: Piperacill/Tazo 3.375gm in Dex 3.375 GM/50 ML BAG IVPB SCH (17:00)
[2017-11-06] MEDS: Azithromycin 500 MG in Sodium Chloride 0.9% 250 ML IVPB SCH (17:51)
--- NOTE | 2017-11-06 18:06 | MRI ---
PROCEDURE: MRA brain dated 11/06/2017 HISTORY: Basilar artery aneurysm. COMPARISON: Correlation made with concurrent MRI brain as well as CT scan of the brain obtained earlier same day. Comparison also made with prior MRI/MRA brain dated 07/13/2017. TECHNIQUE: 3D time of flight MR angiography of the intracranial arteries was performed. Rotating maximum intensity projection images were generated. . Note that examination is extremely limited due to significant motion artifact and is virtually nondiagnostic and should be repeated with adequate sedation. . . FINDINGS: The cervical segments of internal carotid arteries appear grossly patent although poorly seen. The remaining distal internal carotid cannot be adequately evaluated due to motion The cerebral circulation is not visualized Consider followup CTA of the neck and brain for further evaluation. Previously noted small aneurysm arising from the proximal basilar artery or right vertebral artery is not visualized IMPRESSION: Extremely limited study due to motion artifact. This current exam is virtually nondiagnostic. The cervical segments of internal carotid arteries appear grossly patent although poorly seen. The remaining distal internal carotid cannot be adequately evaluated due to motion The cerebral circulation is not visualized Consider followup CTA of the neck and brain for further evaluation. Previously noted small aneurysm arising from the proximal basilar artery or right vertebral artery is not visualized
[2017-11-06] MEDS: Piperacill/Tazo 3.375gm in Dex 3.375 GM/50 ML BAG IVPB SCH (19:37)
[2017-11-06] MEDS ORDERED: Piperacillin/Tazobact 3.375 GM in Sodium Chloride 100 ML IVPB SCH (20:00)
--- NOTE | 2017-11-06 21:23 | PN ---
DATE: SUBJECTIVE: Today, the patient is more cooperative, less confused and more engageable, but still very worried about his . The patient's slept in the hospital last night to provide him company and the wants to go home today, but he is very reluctant to let his go home. His just wants to go home to change her clothes. Finally, the patient agreed, but the patient wants his to be with him, I put an order that the to stay in the hospital. The patient seems to do much calmer with the is there, especially his delusions of morbid jealousy than giving medication can complicate his medical problems. Right now, the patient is off any psych medications, he was taking of Ativan p.r.n. due to his pulmonary problems. VITAL SIGNS: Temperature is 98.4, pulse is 81, blood pressure 158/97, respirations are 21, and oxygen sats 97%. REVIEW OF SYSTEMS: GENERAL: The patient is seen in his room, more responsive, less confused, he was messy, and not agitated. SKIN: No diaphoresis. HEENT: No headache. No dizziness. NECK: Supple. RESPIRATORY: He is breathing much easier. CARDIOVASCULAR: No chest pain. No palpitations. GASTROINTESTINAL: No nausea. No vomiting. EXTREMITIES: The patient is moving his extremities. MUSCULOSKELETAL: Feels weak. NEURO: The patient's mental status seems to be improving. He knows he is in the hospital for most of the time. The patient is conversing in Tagalog. MENTAL STATUS EXAMINATION: Elderly male who looks stated age, oriented x2. Mood is calmer. Affect is reactive. Speech spontaneous. Thought process, less confused. Thought content, the patient has no suicidal or homicidal ideation, still preoccupied about his 's activities. The patient has chronic delusions of morbid jealousy, also known to have Solgohachia syndrome. Attention and memory seem to be improving. Insight and judgement improving. Impulse control is fair at this time. IMPRESSION: Delirium, metabolic encephalopathy secondary to exacerbation of congestive heart failure, history of diabetes, history of hypertension, history of diabetes, history of respiratory failure. PLAN AND RECOMMENDATIONS: The patient is seen. Continue present management as outlined. I put an order that the to stay in hospital. The patient seems to do much better when the is around. We will hold off any psych medications for now, especially with his medical condition. Ren Kyle MD [facility]
[2017-11-07] MEDS: Albuterol-Ipratrop 3 mg / 0.5 (3 ml) UD INH SCH ×6 (00:31→19:27)
[2017-11-07] MEDS: MethylPREDNISolone 40 mg Vial IVP SCH ×4 (00:32→17:44)
[2017-11-07] MEDS: Piperacill/Tazo 3.375gm in Dex 3.375 GM/50 ML BAG IVPB SCH ×3 (05:00→19:45)
[2017-11-07] MEDS: (Novolog) Insulin Aspart, Recombinant 100 u/ml 10 ml vial SC SCH ×4 (07:41→21:54)
[2017-11-07 08:21] LABS: BASO % 0.1 % (0.0-2.0); HEMOGLOBIN 12.5 g/dL (12.0-18.0); LYMPH # 0.5 K/uL (1.0-4.3); LYMPH % 5.3 % (20.0-40.0); MEAN CELL VOLUME 87.1 fL (80.0-94.0); MEAN CORPUSCULAR HEMOGLOBIN 27.7 pg (27.0-31.0); MEAN CORPUSCULAR HGB CONC 31.8 g/dL (33.0-37.0); MEAN PLATELET VOLUME 8.9 fL (7.2-11.7); MONO # 0.2 K/uL (0.0-0.8); MONO % 1.8 % (0.0-10.0); NEUT # 8.8 K/uL (1.8-7.0); NEUT % 92.8 % (50.0-75.0); NRBC % 0.1 % (0.0-2.0); PLATELET COUNT 240 K/uL (130-400); RBC 4.51 Mil/uL (4.40-5.90); RED CELL DISTRIBUTION WIDTH 15.7 % (11.5-14.5); WHITE BLOOD COUNT 9.5 K/uL (4.8-10.8)
[2017-11-07 08:50] LABS: ALBUMIN 3.1 g/dL (3.5-5.0); CALCIUM 8.7 mg/dl (8.6-10.4); MAGNESIUM 2.9 mg/dL (1.6-2.3)
[2017-11-07 10:03] LABS: ANISOCYTOSIS SLIGHT; BANDS 1 % (0-2); LYMPHOCYTE 5 % (20-40); MONOCYTE 2 % (0-10); NEUTROPHIL 92 % (50-75); PLATELET ESTIMATE NORMAL (NORMAL); TOTAL CELLS COUNTED 100
[2017-11-07 10:04] LABS: LARGE PLATELETS PRESENT
[2017-11-07] MEDS: Oseltamivir 6 MG/ML PO SCH ×2 (10:59→17:41)
[2017-11-07] MEDS: Omega-3-Acid Ethyl Esters 1 GM Cap PO SCH ×2 (10:59→17:40)
[2017-11-07] MEDS: (Lantus) Insulin Glargine, Recombinant SC SCH (11:17)
--- NOTE | 2017-11-07 12:00 | CP.PCM.PN ---
Subjective - Date & Time of Evaluation Date of Evaluation: 11/07/17 Time of Evaluation: 09:00 - Subjective Subjective: patient seen and examined and covering for Dr. Adams Patient is much more awake and responsive Off BiPAP in no respiratory distress Good urine output Afebrile Transferred out off ICU Objective - Vital Signs/Intake and Output Vital Signs (last 24 hours): Temp Pulse Resp BP Pulse Ox 98 F 70 20 181/102 H 95 11/07/17 00:10 11/07/17 00:10 11/07/17 00:10 11/07/17 10:59 11/07/17 00:10 Intake and Output: 11/07/17 11/07/17 06:59 18:59 Intake Total 450 Output Total 1250 Balance -800 - Medications Medications: Current Medications Albuterol/Ipratropium (Duoneb 3 Mg/0.5 Mg (3 Ml) Ud) 3 ml INH RQ4 [facility] Last Admin: 11/07/17 11:27 Dose: 3 ml Allopurinol (Zyloprim) 100 mg PO DAILY [facility] Last Admin: 11/07/17 10:59 Dose: 100 mg Amlodipine Besylate (Norvasc) 5 mg PO DAILY [facility] Last Admin: 11/07/17 11:00 Dose: 5 mg Clonidine HCl (Catapres) 0.1 mg PO BID [facility] Last Admin: 11/07/17 11:00 Dose: 0.1 mg Clopidogrel Bisulfate (Plavix) 75 mg PO DAILY [facility] Last Admin: 11/07/17 10:59 Dose: 75 mg Famotidine (Pepcid) 20 mg PO Q12H [facility] Last Admin: 11/07/17 08:56 Dose: 20 mg Furosemide (Lasix) 40 mg IVP DAILY [facility] Last Admin: 11/07/17 10:59 Dose: 40 mg Heparin Sodium (Porcine) (Heparin) 5,000 units SC Q8 [facility] Last Admin: 11/07/17 05:30 Dose: 5,000 units Hydralazine HCl (Apresoline) 25 mg PO Q8H [facility] Last Admin: 11/07/17 08:56 Dose: 25 mg Azithromycin 500 mg/ Sodium (Chloride) 250 mls @ 250 mls/hr IVPB Q24H [facility] Last Admin: 11/06/17 17:51 Dose: 250 mls/hr Piperacillin Sod/Tazobactam Sod (Zosyn 3.375 Gm Iv Premix) 3.375 gm in 50 mls @ 100 mls/hr IVPB Q8H [facility] Last Admin: 11/07/17 05:00 Dose: 100 mls/hr Insulin Aspart (Novolog) 0 unit SC ACHS [facility] PRN Reason: Protocol Last Admin: 11/07/17 11:18 Dose: Not Given Insulin Glargine (Lantus) 32 unit SC DAILY [facility] Last Admin: 11/07/17 11:17 Dose: Not Given Losartan Potassium (Cozaar) 100 mg PO DAILY [facility] Last Admin: 11/07/17 11:00 Dose: 100 mg Methylprednisolone (Solu-Medrol) 40 mg IVP Q6 [facility] Last Admin: 11/07/17 05:32 Dose: 40 mg Metoprolol Tartrate (Lopressor) 50 mg PO BID [facility] Last Admin: 11/07/17 11:00 Dose: 50 mg Mmroq-[id number] Ethyl Esters (Lovaza) 2 gm PO BID [facility] Last Admin: 11/07/17 10:59 Dose: 2 gm Oseltamivir Phosphate (Tamiflu Susp) 30 mg PO BID [facility] Stop: 11/08/17 09:57 Last Admin: 11/07/17 10:59 Dose: 30 mg Rosuvastatin Calcium (Crestor) 5 mg PO HS [facility] Last Admin: 11/06/17 22:09 Dose: 5 mg - Labs Labs: 11/07/17 08:13 11/07/17 08:13 PT 12.5 SECONDS (9.7-12.2) H 11/02/17 15:50 INR 1.1 11/02/17 15:50 APTT 38 SECONDS (21-34) H 11/02/17 15:50 - Head Exam Head Exam: ATRAUMATIC, NORMOCEPHALIC - Eye Exam Eye Exam: Normal appearance - ENT Exam ENT Exam: Mucous Membranes Moist - Neck Exam Neck Exam: Normal Inspection - Respiratory Exam Respiratory Exam: Clear to Ausculation Bilateral - Cardiovascular Exam Cardiovascular Exam: REGULAR RHYTHM - GI/Abdominal Exam GI & Abdominal Exam: Soft, Normal Bowel Sounds Assessment and Plan (1) Respiratory failure with hypercapnia Assessment & Plan: Breathing much improved Off BiPAP Continue antibiotics for pneumonia Continue Lasix Neurology followup Renal consult for worsening creatinine Status: Acute (2) Pneumonia Status: Acute (3) Influenza A Status: Acute
--- NOTE | 2017-11-07 16:10 | RAD ---
HISTORY: pneumonia COMPARISON: Comparison is made with 11/06/2017 FINDINGS: LUNGS: Interval worsening of heterogeneous opacities at the left lung since the prior exam. Re- demonstration of consolidation overlying the right lung PE PLEURA: Blunting of the right costal nerve ileum angle is again noted. CARDIOVASCULAR: Cardiomegaly is again noted. OSSEOUS STRUCTURES: Right chest wall deformity is again noted. VISUALIZED UPPER ABDOMEN: Normal. OTHER FINDINGS: None. IMPRESSION: Worsening opacities at the left lung.
[2017-11-07] MEDS: Azithromycin 500 MG in Sodium Chloride 0.9% 250 ML IVPB SCH (17:40)
--- NOTE | 2017-11-07 18:14 | CP.PCM.CON ---
History of Present Illness - History of Present Illness History of Present Illness: pt is seen and examined, full consult is dictated # Past Patient History - Infectious Disease Hx of Infectious Diseases: None - Past Medical History & Family History Past Medical History?: Yes - Past Social History Smoking Status: Former Smoker - CARDIAC Hx Cardiac Disorders: Yes Hx Congestive Heart Failure: Yes Hx Hypercholesterolemia: Yes Hx Hypertension: Yes - PULMONARY Hx Respiratory Disorders: Yes Hx Chronic Obstructive Pulmonary Disease (COPD): Yes - NEUROLOGICAL Hx Neurological Disorder: No Other/Comment: stroke 2012 - HEENT Hx HEENT Problems: No - RENAL Hx Chronic Kidney Disease: Yes - ENDOCRINE/METABOLIC Hx Endocrine Disorders: Yes Hx Diabetes Mellitus Type 2: Yes - HEMATOLOGICAL/ONCOLOGICAL Hx Blood Disorders: No - INTEGUMENTARY Hx Dermatological Problems: No - MUSCULOSKELETAL/RHEUMATOLOGICAL Hx Musculoskeletal Disorders: Yes Hx Falls: Yes - GASTROINTESTINAL Hx Gastrointestinal Disorders: No - GENITOURINARY/GYNECOLOGICAL Hx Genitourinary Disorders: No - PSYCHIATRIC Hx Psychophysiologic Disorder: No Hx Substance Use: No - SURGICAL HISTORY Hx Coronary Artery Bypass Graft: Yes (2005) Other/Comment: triple by pass 2005 - ANESTHESIA Hx Anesthesia: Yes Meds Allergies/Adverse Reactions: Allergies Allergy/AdvReac Type Severity Reaction Status Date / Time No Known Allergies Allergy Verified 07/02/17 14:39 - Medications Medications: Current Medications Albuterol/Ipratropium (Duoneb 3 Mg/0.5 Mg (3 Ml) Ud) 3 ml INH RQ4 [facility] Last Admin: 11/07/17 16:15 Dose: 3 ml Allopurinol (Zyloprim) 100 mg PO DAILY [facility] Last Admin: 11/07/17 10:59 Dose: 100 mg Amlodipine Besylate (Norvasc) 5 mg PO DAILY [facility] Last Admin: 11/07/17 11:00 Dose: 5 mg Clonidine HCl (Catapres) 0.1 mg PO BID [facility] Last Admin: 11/07/17 17:39 Dose: 0.1 mg Clopidogrel Bisulfate (Plavix) 75 mg PO DAILY [facility] Last Admin: 11/07/17 10:59 Dose: 75 mg Famotidine (Pepcid) 20 mg PO Q12H [facility] Last Admin: 11/07/17 08:56 Dose: 20 mg Furosemide (Lasix) 40 mg IVP DAILY [facility] Last Admin: 11/07/17 10:59 Dose: 40 mg Heparin Sodium (Porcine) (Heparin) 5,000 units SC Q8 [facility] Last Admin: 11/07/17 13:55 Dose: 5,000 units Hydralazine HCl (Apresoline) 25 mg PO Q8H [facility] Last Admin: 11/07/17 16:37 Dose: 25 mg Azithromycin 500 mg/ Sodium (Chloride) 250 mls @ 250 mls/hr IVPB Q24H [facility] Last Admin: 11/07/17 17:40 Dose: 250 mls/hr Piperacillin Sod/Tazobactam Sod (Zosyn 3.375 Gm Iv Premix) 3.375 gm in 50 mls @ 100 mls/hr IVPB Q8H [facility] Last Admin: 11/07/17 12:31 Dose: 100 mls/hr Insulin Aspart (Novolog) 0 unit SC ACHS [facility] PRN Reason: Protocol Last Admin: 11/07/17 17:38 Dose: 8 unit Insulin Glargine (Lantus) 32 unit SC DAILY [facility] Last Admin: 11/07/17 11:17 Dose: Not Given Losartan Potassium (Cozaar) 100 mg PO DAILY [facility] Last Admin: 11/07/17 11:00 Dose: 100 mg Methylprednisolone (Solu-Medrol) 40 mg IVP Q6 [facility] Last Admin: 11/07/17 17:44 Dose: 40 mg Metoprolol Tartrate (Lopressor) 50 mg PO BID [facility] Last Admin: 11/07/17 17:40 Dose: 50 mg Fkovy-3-Fqdw Ethyl Esters (Lovaza) 2 gm PO BID [facility] Last Admin: 11/07/17 17:40 Dose: 2 gm Oseltamivir Phosphate (Tamiflu Susp) 30 mg PO BID [facility] Stop: 11/08/17 09:57 Last Admin: 11/07/17 17:41 Dose: 30 mg Rosuvastatin Calcium (Crestor) 5 mg PO HS [facility] Last Admin: 11/06/17 22:09 Dose: 5 mg Results - Vital Signs Recent Vital Signs: Last Vital Signs Temp 98 F 11/07/17 16:00 Pulse 60 11/07/17 16:00 Resp 20 11/07/17 16:00 BP 139/87 11/07/17 16:00 Pulse Ox 95 11/07/17 16:00 - Labs Result Diagrams: 11/07/17 08:13 11/07/17 08:13 Labs: Laboratory Results - last 24 hr 11/06/17 11/07/17 11/07/17 20:54 06:49 08:13 WBC 9.5 RBC 4.51 Hgb 12.5 Hct 39.3 MCV 87.1 MCH 27.7 MCHC 31.8 L RDW 15.7 H Plt Count 240 MPV 8.9 Neut % (Auto) 92.8 H Lymph % (Auto) 5.3 L Sargent % (Auto) 1.8 Eos % (Auto) 0.0 Baso % (Auto) 0.1 Neut # (Auto) 8.8 H Lymph # (Auto) 0.5 L Sargent # (Auto) 0.2 Eos # (Auto) 0.0 Baso # (Auto) 0.0 Neutrophils % (Manual) 92 H Band Neutrophils % 1 Lymphocytes % (Manual) 5 L Monocytes % (Manual) 2 Platelet Estimate Normal Large Platelets Present Anisocytosis (manual) Slight Sodium Potassium Chloride Carbon Dioxide Anion Gap BUN Creatinine Est GFR ( Amer) Est GFR (Non-Af Amer) POC Glucose (mg/dL) 278 H 77 Random Glucose Calcium Phosphorus Magnesium Total Bilirubin AST ALT Alkaline Phosphatase Total Protein Albumin Globulin Albumin/Globulin Ratio 11/07/17 11/07/17 08:13 11:07 WBC RBC Hgb Hct MCV MCH MCHC RDW Plt Count MPV Neut % (Auto) Lymph % (Auto) Sargent % (Auto) Eos % (Auto) Baso % (Auto) Neut # (Auto) Lymph # (Auto) Sargent # (Auto) Eos # (Auto) Baso # (Auto) Neutrophils % (Manual) Band Neutrophils % Lymphocytes % (Manual) Monocytes % (Manual) Platelet Estimate Large Platelets Anisocytosis (manual) Sodium 146 Potassium 4.1 Chloride 104 Carbon Dioxide 35 H Anion Gap 12 BUN 60 H Creatinine 2.6 H Est GFR ( Amer) 30 Est GFR (Non-Af Amer) 25 POC Glucose (mg/dL) 118 H Random Glucose 77 Calcium 8.7 Phosphorus 4.1 Magnesium 2.9 H Total Bilirubin 0.3 AST 14 L ALT 18 L Alkaline Phosphatase 45 Total Protein 6.3 Albumin 3.1 L Globulin 3.2 Albumin/Globulin Ratio 1.0
--- NOTE | 2017-11-07 19:19 | PN ---
DATE: 11/07/2017 NEUROLOGICAL PROBLEM: Possible transient ischemic attack and history of cerebral aneurysm. PHYSICAL EXAMINATION: VITAL SIGNS: Blood pressure 174/98, mean arterial pressure 123, respiratory rate 18, temperature afebrile with pulse rate 65. GENERAL: The patient is examined with the presence of his . The patient is awake, alert, he knows he is in the hospital. EXTREMITIES: He moves all four extremities against the gravity. NEUROLOGIC: Mentation is normal. CT of the head had been reviewed. No acute pathology is noted. The repeat MRI of the brain showed no evidence of acute stroke. Evidence of atrophy with old hemosiderin deposit over right cerebellar hemisphere. His MR angiogram showed previously noted small aneurysm arising from the proximal basilar artery or right ventricular artery was not visualized as per the documentation. The patient also showed extensive intracerebral atherosclerotic changes noted. However, the study is limited due to his movement artifact. The patient is clinically stable at this point. No further workup is needed. Probably six months from now, the patient may need MR angiogram again to assess his previous aneurysm to the current status. The patient no need further workup from Neurology. If medically stable, the patient can be discharged and should have followup visit with me as outpatient. Arslan Carl MD
[2017-11-08] MEDS: MethylPREDNISolone 40 mg Vial IVP SCH ×4 (00:06→18:52)
[2017-11-08] MEDS: Albuterol-Ipratrop 3 mg / 0.5 (3 ml) UD INH SCH ×7 (01:23→20:15)
[2017-11-08] MEDS: Piperacill/Tazo 3.375gm in Dex 3.375 GM/50 ML BAG IVPB SCH ×3 (05:09→22:32)
--- NOTE | 2017-11-08 06:16 | CON ---
DATE: 11/07/2017 RENAL CONSULTATION LOCATION: The patient is located in room 555, Bed B. REQUESTED BY: Paola Adams MD REASON FOR FOLLOWUP: Chronic kidney disease for further evaluation. HISTORY OF PRESENT ILLNESS: Mr. Flowers is a 67 years old elderly, very pleasant [place] male with past medical history significant for longstanding hypertension, diabetes, hyperlipidemia, chronic kidney disease, CHF, COPD, proteinuria, anemia, and intracranial aneurysm who was admitted to [facility] few months ago in June for respiratory failure, exacerbation of COPD, status post intubation. Now, the patient was admitted on 11/02/2017 with a chief complaint of shortness of breath. As per the patient's , the patient has been coughing with dyspnea on exertion, sometimes lips were turning blue. Initially, the patient refused to come to the emergency room. Subsequently, the patient agreed and came to the emergency room. Now renal consult is requested for evaluation of increased BUN and creatinine. The patient is not in acute distress, somewhat confused. No chest pain. No palpitation. No fever. Occasional cough. No chest pain. No nausea, vomiting, diarrhea. No urinary symptoms. PAST MEDICAL HISTORY: Significant for hypertension, diabetes, chronic kidney disease, proteinuria, anemia, atrial fibrillation, CHF, COPD, gout, basilar aneurysm, status post fall and back injury many years ago. PAST SURGICAL HISTORY: Status post CABG. ALLERGIES: NO KNOWN DRUG ALLERGIES. SOCIAL HISTORY: Denies any smoking, alcohol, or drugs. At this time, the patient has a very supportive family. MEDICATIONS: His current medications in the hospital include as follows: Hydralazine 25 mg p.o. q.8 hours and azithromycin 500 mg q.24 hours, clonidine 0.1 mg p.o. b.i.d., Cozaar 200 mg p.o. daily, Crestor 5 mg at bedtime, and DuoNeb inhaler, subcu heparin 5000 q.8 hours, Lantus 32 units subcu daily, and Lasix 40 mg IV daily, Lopressor 50 mg p.o. b.i.d., [place]-3 of 2 gm p.o. b.i.d., amlodipine 5 mg daily, NovoLog sliding scale, Pepcid 20 mg p.o. q.12 hours, Plavix 75 mg daily, Solu-Medrol 40 mg IV q.6 hours, Tamiflu 30 mg p.o. b.i.d., Zosyn 3.375 gm IV q.8 hours, allopurinol 100 mg p.o. daily. FAMILY HISTORY: Not significant. REVIEW OF SYSTEMS: Significant for shortness of breath and cough. All other review of systems are reviewed and negative. PHYSICAL EXAMINATION: VITAL SIGNS: As follows: Blood pressure 139/87, pulse 60, respirations 20, temperature 98, saturation 95%. Height 5 feet 6 inches and weight is 187 pounds, on 3 liters nasal cannula. GENERAL: Mr. Flowers is 67 years old obese [place] male, moderately built, moderately nourished, not in distress. HEENT: Pupils normal and reactive to light and accommodation. Conjunctivae pink. Sclerae anicteric. Tongue is moist. Trachea is midline. LUNGS: Symmetric on both sides. Bilateral breath sounds present. No crackles. CVS: [place] at the fifth intercostal space, midclavicular line. S1 and S2 audible. No murmur, no gallop. ABDOMEN: Normal in appearance, soft, tympanic. No guarding. No rigidity. No hepatosplenomegaly. Abdomen is protuberant. [employer]: The patient is alert, awake and oriented times two to three. Sensory and motor system is grossly within normal limits. EXTREMITIES: No cyanosis, no clubbing, no edema. LABORATORY DATA: Include as follows: As of 11/07/2017, WBC 9.5, hemoglobin 12.5, hematocrit 39.3, platelets 240, neutrophils 92, bands 1, lymph 5, monos 2. Sodium 146, potassium 4.1, chloride 104, CO2 of 35, BUN 60, creatinine 2.6, glucose 180, calcium 8.7, total bili 0.3, phosphorus 4.1, magnesium 2.9, AST 14, ALT 18, alkaline phosphatase 45, total protein 6.3, albumin is 3.2. As of 11/02/2017, urine is straw color, clear, pH 5, specific gravity 1.011, protein 3+, glucose 1+, ketones negative, blood negative, nitrites negative, bilirubin negative, urobilinogen normal, leukocyte esterase negative, wbc less than 1, rbc 1, bacteria rare, and influenza A and B antibody is positive for influenza A, and urine for Legionella antigen is negative and mycoplasma antibody is negative. As of 11/04/2017 and as of 11/02/2017, chest x-ray, left apical and right basilar opacity, possible multifocal pneumonia, small right pleural effusion, CABG and cardiomegaly. As of 11/04/2017, CT scan of the chest without contrast, impression, multifocal left-sided consolidation to clearing to rule out underlying neoplasm, left pleural effusion, and pleural fluid within the right major and minor fissures, marked cardiomegaly with evidence of CABG, aneurysmal dilatation of the ascending thoracic aorta and dilatation of the main pulmonary artery, old anterior wedge compression deformity on the T4 vertebra, postsurgical deformity of the right fifth and sixth ribs and cholelithiasis, and ascending thoracic aorta with aneurysmal dilatation to a diameter of 4.6 cm with mild dilatation of the main pulmonary to a diameter of 3.3 cm. There is a rounded opacity, likely consolidation in the left apex, approximately 1.7 cm diameter and new since prior, rule out neoplasm. There is a dense consolidation in the apical posterior segment of the left upper lobe, no significant right-sided opacity. MRI of the brain as of 11/05/2017, study is significantly limited by marked motion artifact, no evidence of acute aneurysm or infarct, questionable small hemosiderin deposits within the right cerebellar hemisphere, mild chronic white matter ischemic changes, moderate volume loss. MRI of the head, previously noted small aneurysm arising from the proximal basilar artery or right vertebral artery is not visualized. The cerebral circulation is not visualized. Consider followup CT of the neck and brain for further evaluation, a extremely limited study due to motion artifact, this current exam is virtually nondiagnostic. A chest x-ray as of 11/07/2017, impression, worsening opacities in the left lung, and the reports from the previous admission, the review of the labs, serology as of 07/03/2017, RPR was negative, hepatitis B surface antigen was negative, hepatitis B surface antibody was negative, hep C antibody was negative, and serum immunofixation is positive, identified IgG kappa, monoclonal protein is present, and urine immunofixation is also positive for free kappa, monoclonal light chain band is present, and free kappa light chains is 37.4, free lambda light chain is 19.7, free kappa lambda ratio is 1.90, C3 is 129, C4 is 22.8, and JOSY is 1:40 homogeneous, and a 24-hour urine volume as of 07/05/2017 volume is 3700, urine creatinine is 1239, creatinine clearance is 52, and 24-hour urine protein is 2.553 grams with creatinine about 2.6. IMPRESSION: In summary, Mr. Flowers is a 67 years old obese elderly male with a history of hypertension, diabetes, coronary artery disease, status post coronary artery bypass graft, basilar aneurysm and proteinuria, uncontrolled diabetes with abnormal urine immunofixation and serum immunofixation for free kappa light chains, was admitted with shortness of breath and found to have positive influenza A antibody with elevated BUN and creatinine and left lung pneumonia. 1. Chronic kidney disease stage III, most likely secondary to diabetic nephropathy, cannot rule out underlying multiple myeloma or monoclonal gammopathy of undetermined significance, MGUS. 2. Pneumonia, influenza A. 3. Hypertension. 4. Diabetes. 5. Coronary artery disease, asymptomatic. Continue Tamiflu as per the pulmonary recommendations and check PTH intact level and phosphorus level and consider to follow with Hematology as an outpatient. If bone marrow biopsy was not done, consider bone marrow biopsy to rule out multiple myeloma versus monoclonal gammopathy of undetermined significance. We will follow up with you. Thank you for allowing me to participate in your patient's care. The patient had a complete workup during his previous admission and also continue low-sodium diet and ADA diet as per the dietary recommendations. Susana Jones MD
--- NOTE | 2017-11-08 08:03 | CP.PCM.PN ---
Subjective - Date & Time of Evaluation Date of Evaluation: 11/06/17 Time of Evaluation: 18:20 - Subjective Subjective: Patient seen and evaluated Sleepy No chest pain or dyspnea Physical Examination - Constitutional Appears: Non-toxic, No Acute Distress - Head Exam Head Exam: ATRAUMATIC, NORMAL INSPECTION, NORMOCEPHALIC - Eye Exam Eye Exam: EOMI, PERRL - ENT Exam ENT Exam: Mucous Membranes Moist - Neck Exam Neck Exam: Full ROM - Respiratory Exam Respiratory Exam: absent: Wheezes - Cardiovascular Exam Cardiovascular Exam: +S1, +S2 - GI/Abdominal Exam GI & Abdominal Exam: Soft, Normal Bowel Sounds - Extremities Exam Extremities Exam: Normal Capillary Refill, Pedal Edema (1+ pitting). absent: Tenderness - Psychiatric Exam Psychiatric exam: Flat Affect - Skin Skin Exam: Dry, Normal Color, Warm Objective - Vital Signs/Intake and Output Vital Signs (last 24 hours): Temp Pulse Resp BP Pulse Ox 98 F 96 H 20 157/95 H 95 11/07/17 16:00 11/07/17 23:00 11/07/17 16:00 11/07/17 20:00 11/07/17 16:00 Intake and Output: 11/08/17 11/08/17 06:59 18:59 Intake Total 350 Output Total 2200 Balance -1850 - Medications Medications: Current Medications Albuterol/Ipratropium (Duoneb 3 Mg/0.5 Mg (3 Ml) Ud) 3 ml INH RQ4 [facility] Last Admin: 11/08/17 07:26 Dose: 3 ml Allopurinol (Zyloprim) 100 mg PO DAILY [facility] Last Admin: 11/07/17 10:59 Dose: 100 mg Amlodipine Besylate (Norvasc) 5 mg PO DAILY [facility] Last Admin: 11/07/17 11:00 Dose: 5 mg Clonidine HCl (Catapres) 0.1 mg PO BID [facility] Last Admin: 11/07/17 17:39 Dose: 0.1 mg Clopidogrel Bisulfate (Plavix) 75 mg PO DAILY [facility] Last Admin: 11/07/17 10:59 Dose: 75 mg Famotidine (Pepcid) 20 mg PO Q12H [facility] Last Admin: 11/07/17 19:42 Dose: 20 mg Furosemide (Lasix) 40 mg IVP DAILY [facility] Last Admin: 11/07/17 10:59 Dose: 40 mg Heparin Sodium (Porcine) (Heparin) 5,000 units SC Q8 [facility] Last Admin: 11/08/17 05:10 Dose: 5,000 units Hydralazine HCl (Apresoline) 25 mg PO Q8H [facility] Last Admin: 11/08/17 00:06 Dose: 25 mg Azithromycin 500 mg/ Sodium (Chloride) 250 mls @ 250 mls/hr IVPB Q24H [facility] Last Admin: 11/07/17 17:40 Dose: 250 mls/hr Piperacillin Sod/Tazobactam Sod (Zosyn 3.375 Gm Iv Premix) 3.375 gm in 50 mls @ 100 mls/hr IVPB Q8H [facility] Last Admin: 11/08/17 05:09 Dose: 100 mls/hr Insulin Aspart (Novolog) 0 unit SC ACHS [facility] PRN Reason: Protocol Last Admin: 11/07/17 21:54 Dose: 3 unit Insulin Glargine (Lantus) 32 unit SC DAILY [facility] Last Admin: 11/07/17 11:17 Dose: Not Given Losartan Potassium (Cozaar) 100 mg PO DAILY [facility] Last Admin: 11/07/17 11:00 Dose: 100 mg Methylprednisolone (Solu-Medrol) 40 mg IVP Q6 [facility] Last Admin: 11/08/17 06:09 Dose: 40 mg Metoprolol Tartrate (Lopressor) 50 mg PO BID [facility] Last Admin: 11/07/17 17:40 Dose: 50 mg Mqydh-7-Rypo Ethyl Esters (Lovaza) 2 gm PO BID [facility] Last Admin: 11/07/17 17:40 Dose: 2 gm Oseltamivir Phosphate (Tamiflu Susp) 30 mg PO BID [facility] Stop: 11/08/17 09:57 Last Admin: 11/07/17 17:41 Dose: 30 mg Rosuvastatin Calcium (Crestor) 5 mg PO HS [facility] Last Admin: 11/07/17 21:58 Dose: 5 mg - Labs Labs: 11/07/17 08:13 11/07/17 08:13 PT 12.5 SECONDS (9.7-12.2) H 11/02/17 15:50 INR 1.1 11/02/17 15:50 APTT 38 SECONDS (21-34) H 11/02/17 15:50 Assessment and Plan - Assessment and Plan (Free Text) Assessment: Elevated Troponin Assessment and Plan: Mildly elevated but later trended down: It could have been due to ischemic changes but may also be due to CHF exacerbation as well No ST segment changes appreciated on EKG 07/06 Cont to monitor Status: Acute CHF exacerbation Assessment and Plan: On IV Lasix as nedded ECHO: EF 65%, mild calcified thickening of aortic valve. Refer to complete report Status: Acute Hypertension Assessment and Plan: On Metoprolol, Cozaar and Hydralazine Status: Chronic History of coronary artery bypass graft Assessment and Plan: Crestor 10 mg PO HS On Metoprolol BID, Plavix daily Status: Chronic History of diabetes mellitus Assessment and Plan: Accuchecks Sliding scale Hold Parameters in place Status: Chronic History of TIA (transient ischemic attack) Assessment and Plan: Neuro on the case. See above. Cont to monitor Status: Acute Hypercholesterolemia Assessment and Plan: On Crestor Would benefit from diet and exercise modifications following current hospital course Status: Chronic Family history of cerebral aneurysm Assessment and Plan: Strong family history. Status: Acute Prophylactic measure Assessment and Plan: SCDs contraindicated due to swelling Heparin SC Q12 Pepcid 20 mg IV daily Status: Acute
--- NOTE | 2017-11-08 08:06 | CP.PCM.PN ---
Subjective - Date & Time of Evaluation Date of Evaluation: 11/07/17 Time of Evaluation: 10:50 - Subjective Subjective: Patient seen and evaluated Denies chest pain and dyspnea Cardiac cath when stable after neuro clearance for ASA and Plavix combo if patient needs a stent Physical Examination - Constitutional Appears: Non-toxic, No Acute Distress - Head Exam Head Exam: ATRAUMATIC, NORMAL INSPECTION, NORMOCEPHALIC - Eye Exam Eye Exam: EOMI, PERRL - ENT Exam ENT Exam: Mucous Membranes Moist - Neck Exam Neck Exam: Full ROM - Respiratory Exam Respiratory Exam: absent: Wheezes - Cardiovascular Exam Cardiovascular Exam: +S1, +S2 - GI/Abdominal Exam GI & Abdominal Exam: Soft, Normal Bowel Sounds - Extremities Exam Extremities Exam: Normal Capillary Refill, Pedal Edema (1+ pitting). absent: Tenderness - Psychiatric Exam Psychiatric exam: Flat Affect - Skin Skin Exam: Dry, Normal Color, Warm Objective - Vital Signs/Intake and Output Vital Signs (last 24 hours): Temp Pulse Resp BP Pulse Ox 98 F 96 H 20 157/95 H 95 11/07/17 16:00 11/07/17 23:00 11/07/17 16:00 11/07/17 20:00 11/07/17 16:00 Intake and Output: 11/08/17 11/08/17 06:59 18:59 Intake Total 350 Output Total 2200 Balance -1850 - Medications Medications: Current Medications Albuterol/Ipratropium (Duoneb 3 Mg/0.5 Mg (3 Ml) Ud) 3 ml INH RQ4 [facility] Last Admin: 11/08/17 07:26 Dose: 3 ml Allopurinol (Zyloprim) 100 mg PO DAILY [facility] Last Admin: 11/07/17 10:59 Dose: 100 mg Amlodipine Besylate (Norvasc) 5 mg PO DAILY [facility] Last Admin: 11/07/17 11:00 Dose: 5 mg Clonidine HCl (Catapres) 0.1 mg PO BID [facility] Last Admin: 11/07/17 17:39 Dose: 0.1 mg Clopidogrel Bisulfate (Plavix) 75 mg PO DAILY [facility] Last Admin: 11/07/17 10:59 Dose: 75 mg Famotidine (Pepcid) 20 mg PO Q12H [facility] Last Admin: 11/07/17 19:42 Dose: 20 mg Furosemide (Lasix) 40 mg IVP DAILY [facility] Last Admin: 11/07/17 10:59 Dose: 40 mg Heparin Sodium (Porcine) (Heparin) 5,000 units SC Q8 [facility] Last Admin: 11/08/17 05:10 Dose: 5,000 units Hydralazine HCl (Apresoline) 25 mg PO Q8H [facility] Last Admin: 11/08/17 00:06 Dose: 25 mg Azithromycin 500 mg/ Sodium (Chloride) 250 mls @ 250 mls/hr IVPB Q24H [facility] Last Admin: 11/07/17 17:40 Dose: 250 mls/hr Piperacillin Sod/Tazobactam Sod (Zosyn 3.375 Gm Iv Premix) 3.375 gm in 50 mls @ 100 mls/hr IVPB Q8H [facility] Last Admin: 11/08/17 05:09 Dose: 100 mls/hr Insulin Aspart (Novolog) 0 unit SC ACHS [facility] PRN Reason: Protocol Last Admin: 11/07/17 21:54 Dose: 3 unit Insulin Glargine (Lantus) 32 unit SC DAILY [facility] Last Admin: 11/07/17 11:17 Dose: Not Given Losartan Potassium (Cozaar) 100 mg PO DAILY [facility] Last Admin: 11/07/17 11:00 Dose: 100 mg Methylprednisolone (Solu-Medrol) 40 mg IVP Q6 [facility] Last Admin: 11/08/17 06:09 Dose: 40 mg Metoprolol Tartrate (Lopressor) 50 mg PO BID [facility] Last Admin: 11/07/17 17:40 Dose: 50 mg Lfieg-[id number] Ethyl Esters (Lovaza) 2 gm PO BID [facility] Last Admin: 11/07/17 17:40 Dose: 2 gm Oseltamivir Phosphate (Tamiflu Susp) 30 mg PO BID [facility] Stop: 11/08/17 09:57 Last Admin: 11/07/17 17:41 Dose: 30 mg Rosuvastatin Calcium (Crestor) 5 mg PO HS [facility] Last Admin: 11/07/17 21:58 Dose: 5 mg - Labs Labs: 11/07/17 08:13 11/07/17 08:13 PT 12.5 SECONDS (9.7-12.2) H 11/02/17 15:50 INR 1.1 11/02/17 15:50 APTT 38 SECONDS (21-34) H 11/02/17 15:50 Assessment and Plan - Assessment and Plan (Free Text) Assessment: Elevated Troponin Assessment and Plan: Mildly elevated but later trended down: It could have been due to ischemic changes but may also be due to CHF exacerbation as well No ST segment changes appreciated on EKG 07/06 Cont to monitor Status: Acute CHF exacerbation Assessment and Plan: On IV Lasix as nedded ECHO: EF 65%, mild calcified thickening of aortic valve. Refer to complete report Status: Acute Hypertension Assessment and Plan: On Metoprolol, Cozaar and Hydralazine Status: Chronic History of coronary artery bypass graft Assessment and Plan: Crestor 10 mg PO HS On Metoprolol BID, Plavix daily Status: Chronic History of diabetes mellitus Assessment and Plan: Accuchecks Sliding scale Hold Parameters in place Status: Chronic History of TIA (transient ischemic attack) Assessment and Plan: Neuro on the case. See above. Cont to monitor Status: Acute Hypercholesterolemia Assessment and Plan: On Crestor Would benefit from diet and exercise modifications following current hospital course Status: Chronic Family history of cerebral aneurysm Assessment and Plan: Strong family history. Status: Acute Prophylactic measure Assessment and Plan: SCDs contraindicated due to swelling Heparin SC Q12 Pepcid 20 mg IV daily Status: Acute
[2017-11-08] MEDS: (Novolog) Insulin Aspart, Recombinant 100 u/ml 10 ml vial SC SCH ×4 (08:31→22:31)
[2017-11-08] MEDS: Omega-3-Acid Ethyl Esters 1 GM Cap PO SCH ×2 (10:40→18:40)
[2017-11-08] MEDS: (Lantus) Insulin Glargine, Recombinant SC SCH (10:41)
--- NOTE | 2017-11-08 15:17 | CP.PCM.PN ---
Subjective - Date & Time of Evaluation Date of Evaluation: 11/08/17 Time of Evaluation: 15:16 - Subjective Subjective: pt is seen and examined, follow up consult is dictated #[id number] increase hydralazine to 50 mg po q 8hrs Objective - Vital Signs/Intake and Output Vital Signs (last 24 hours): Temp Pulse Resp BP Pulse Ox 97.4 F L 67 20 165/74 H 95 11/08/17 07:20 11/08/17 10:41 11/08/17 08:34 11/08/17 10:42 11/08/17 08:34 Intake and Output: 11/08/17 11/08/17 06:59 18:59 Intake Total 350 Output Total 2200 Balance -1850 - Medications Medications: Current Medications Albuterol/Ipratropium (Duoneb 3 Mg/0.5 Mg (3 Ml) Ud) 3 ml INH RQ4 [facility] Last Admin: 11/08/17 11:30 Dose: 3 ml Allopurinol (Zyloprim) 100 mg PO DAILY [facility] Last Admin: 11/08/17 10:40 Dose: 100 mg Amlodipine Besylate (Norvasc) 5 mg PO DAILY [facility] Last Admin: 11/08/17 10:42 Dose: 5 mg Clonidine HCl (Catapres) 0.1 mg PO BID [facility] Last Admin: 11/08/17 10:42 Dose: 0.1 mg Clopidogrel Bisulfate (Plavix) 75 mg PO DAILY [facility] Last Admin: 11/08/17 10:40 Dose: 75 mg Famotidine (Pepcid) 20 mg PO Q12H [facility] Last Admin: 11/08/17 08:30 Dose: 20 mg Furosemide (Lasix) 40 mg IVP DAILY [facility] Last Admin: 11/08/17 10:42 Dose: 40 mg Hydralazine HCl (Apresoline) 25 mg PO Q8H [facility] Last Admin: 11/08/17 08:30 Dose: 25 mg Azithromycin 500 mg/ Sodium (Chloride) 250 mls @ 250 mls/hr IVPB Q24H [facility] Last Admin: 11/07/17 17:40 Dose: 250 mls/hr Piperacillin Sod/Tazobactam Sod (Zosyn 3.375 Gm Iv Premix) 3.375 gm in 50 mls @ 100 mls/hr IVPB Q8H [facility] Last Admin: 11/08/17 11:34 Dose: 100 mls/hr Insulin Aspart (Novolog) 0 unit SC ACHS [facility] PRN Reason: Protocol Last Admin: 11/08/17 12:24 Dose: 8 unit Insulin Glargine (Lantus) 32 unit SC DAILY [facility] Last Admin: 11/08/17 10:41 Dose: 32 units Losartan Potassium (Cozaar) 100 mg PO DAILY [facility] Last Admin: 11/08/17 10:42 Dose: 100 mg Methylprednisolone (Solu-Medrol) 40 mg IVP Q6 [facility] Last Admin: 11/08/17 11:34 Dose: 40 mg Metoprolol Tartrate (Lopressor) 50 mg PO BID [facility] Last Admin: 11/08/17 10:42 Dose: 50 mg Uupyg-6-Wioy Ethyl Esters (Lovaza) 2 gm PO BID [facility] Last Admin: 11/08/17 10:40 Dose: 2 gm Rosuvastatin Calcium (Crestor) 5 mg PO HS [facility] Last Admin: 11/07/17 21:58 Dose: 5 mg - Labs Labs: 11/07/17 08:13 11/07/17 08:13 PT 12.5 SECONDS (9.7-12.2) H 11/02/17 15:50 INR 1.1 11/02/17 15:50 APTT 38 SECONDS (21-34) H 11/02/17 15:50
--- NOTE | 2017-11-08 17:12 | PN ---
DATE: 11/08/2017 SUBJECTIVE: The patient was seen with his . His is assisting in eating. He is more coherent, verbal, cooperative, although he still has one-to-one watch, less confused. The patient is off his psych meds. PHYSICAL EXAMINATION: VITAL SIGNS: Temperature 97.4, pulse 64, blood pressure 165/74, respirations 20, oxygen saturation is 95%. REVIEW OF SYSTEMS: GENERAL: He is more alert, verbal, eating with assistance from his . He still feels weak, less confused. SKIN: No diaphoresis. HEENT: No headache. No dizziness. NECK: Supple. RESPIRATORY: No dyspnea. CARDIOVASCULAR: No chest pain. GASTROINTESTINAL: He is eating. EXTREMITIES: Gait is ambulatory. MUSCULOSKELETAL: Feels weak due to his CHF. NEUROLOGIC: Alert and oriented x3, conversing with doctor in [facility]. He is more coherent, less anxious. MENTAL STATUS EXAMINATION: Elderly male of [place] descent, oriented x2, conversing in [place]. Mood is much calmer. Affect is reactive. Speech is spontaneous. Thought process, less confused. Thought content, less preoccupied about his . His can stay with him while in the hospital, they have been giving him his extra medication. He was given Ativan to control his agitation a few days earlier and had some respiratory problems. The presence of his seems to calm him down. No suicidal ideation. The patient, however, has chronic delusions of morbid jealously. Attention and memory seems to be improving. Insight and judgement improving. Impulse control is fair at this time. IMPRESSION: Delirium, metabolic encephalopathy secondary to chronic heart failure, history of diabetes, history of delusional disorder, morbid jealously; this is chronic. PLAN AND RECOMMENDATIONS. The patient is seen and meds reviewed. Continue present management. The patient also is seen by Neuro and seen by Dr. Butler. We will just keep him off psych meds for now. The can stay with the patient. Continue treatment plan as outlined. The patient has chronic delusions of morbid jealously, but redirectable at this time. Ren Kyle MD [facility] # [id number] MTDD
[2017-11-08] MEDS: Azithromycin 500 MG in Sodium Chloride 0.9% 250 ML IVPB SCH (18:40)
--- NOTE | 2017-11-08 19:03 | CP.PCM.PN ---
Subjective - Date & Time of Evaluation Date of Evaluation: 11/08/17 Time of Evaluation: 15:50 - Subjective Subjective: Patient seen and examined and covering for Dr. miramontes Sitting comfortably in no acute distress Out of bed to chair Off BiPAP Afebrile Alert oriented x3 Good appetite Denies any cough Continue treatment for pneumonia Followup chemistry Objective - Vital Signs/Intake and Output Vital Signs (last 24 hours): Temp Pulse Resp BP Pulse Ox 97.7 F 94 H 20 155/93 H 97 11/08/17 16:48 11/08/17 16:57 11/08/17 16:48 11/08/17 16:48 11/08/17 16:48 Intake and Output: 11/08/17 11/08/17 06:59 18:59 Intake Total 350 810 Output Total 2200 1650 Balance -1850 -840 - Medications Medications: Current Medications Albuterol/Ipratropium (Duoneb 3 Mg/0.5 Mg (3 Ml) Ud) 3 ml INH RQ4 [facility] Last Admin: 11/08/17 16:14 Dose: 3 ml Allopurinol (Zyloprim) 100 mg PO DAILY [facility] Last Admin: 11/08/17 10:40 Dose: 100 mg Amlodipine Besylate (Norvasc) 5 mg PO DAILY [facility] Last Admin: 11/08/17 10:42 Dose: 5 mg Clonidine HCl (Catapres) 0.1 mg PO BID [facility] Last Admin: 11/08/17 18:40 Dose: 0.1 mg Clopidogrel Bisulfate (Plavix) 75 mg PO DAILY [facility] Last Admin: 11/08/17 10:40 Dose: 75 mg Famotidine (Pepcid) 20 mg PO Q12H [facility] Last Admin: 11/08/17 08:30 Dose: 20 mg Furosemide (Lasix) 40 mg IVP DAILY [facility] Last Admin: 11/08/17 10:42 Dose: 40 mg Hydralazine HCl (Apresoline) 25 mg PO Q8H [facility] Last Admin: 11/08/17 18:40 Dose: 25 mg Azithromycin 500 mg/ Sodium (Chloride) 250 mls @ 250 mls/hr IVPB Q24H [facility] Last Admin: 11/08/17 18:40 Dose: 250 mls/hr Piperacillin Sod/Tazobactam Sod (Zosyn 3.375 Gm Iv Premix) 3.375 gm in 50 mls @ 100 mls/hr IVPB Q8H [facility] Last Admin: 11/08/17 11:34 Dose: 100 mls/hr Insulin Aspart (Novolog) 0 unit SC ACHS [facility] PRN Reason: Protocol Last Admin: 11/08/17 17:30 Dose: 10 unit Insulin Glargine (Lantus) 32 unit SC DAILY [facility] Last Admin: 11/08/17 10:41 Dose: 32 units Losartan Potassium (Cozaar) 100 mg PO DAILY [facility] Last Admin: 11/08/17 10:42 Dose: 100 mg Methylprednisolone (Solu-Medrol) 40 mg IVP Q6 [facility] Last Admin: 11/08/17 18:52 Dose: 40 mg Metoprolol Tartrate (Lopressor) 50 mg PO BID [facility] Last Admin: 11/08/17 18:40 Dose: 50 mg Qrmhl-1-Pygz Ethyl Esters (Lovaza) 2 gm PO BID [facility] Last Admin: 11/08/17 18:40 Dose: 2 gm Rosuvastatin Calcium (Crestor) 5 mg PO HS [facility] Last Admin: 11/07/17 21:58 Dose: 5 mg - Labs Labs: 11/07/17 08:13 11/07/17 08:13 PT 12.5 SECONDS (9.7-12.2) H 11/02/17 15:50 INR 1.1 11/02/17 15:50 APTT 38 SECONDS (21-34) H 11/02/17 15:50 - Head Exam Head Exam: ATRAUMATIC, NORMOCEPHALIC - ENT Exam ENT Exam: Mucous Membranes Moist - Neck Exam Neck Exam: Normal Inspection - Respiratory Exam Respiratory Exam: Clear to Ausculation Bilateral - Cardiovascular Exam Cardiovascular Exam: REGULAR RHYTHM - GI/Abdominal Exam GI & Abdominal Exam: Soft, Normal Bowel Sounds Assessment and Plan (1) Respiratory failure with hypercapnia Status: Acute (2) Pneumonia Status: Acute (3) Influenza A Status: Acute
--- NOTE | 2017-11-08 22:52 | CP.PCM.PN ---
Subjective - Date & Time of Evaluation Date of Evaluation: 11/08/17 Time of Evaluation: 12:10 - Subjective Subjective: Patient seen and evaluated denies chest pain and dyspnea Oriented Continue current meds Physical Examination - Constitutional Appears: Non-toxic, No Acute Distress - Head Exam Head Exam: ATRAUMATIC, NORMAL INSPECTION, NORMOCEPHALIC - Eye Exam Eye Exam: EOMI, PERRL - ENT Exam ENT Exam: Mucous Membranes Moist - Neck Exam Neck Exam: Full ROM - Respiratory Exam Respiratory Exam: absent: Wheezes - Cardiovascular Exam Cardiovascular Exam: +S1, +S2 - GI/Abdominal Exam GI & Abdominal Exam: Soft, Normal Bowel Sounds - Extremities Exam Extremities Exam: Normal Capillary Refill, Pedal Edema (1+ pitting). absent: Tenderness - Psychiatric Exam Psychiatric exam: Flat Affect - Skin Skin Exam: Dry, Normal Color, Warm Objective - Vital Signs/Intake and Output Vital Signs (last 24 hours): Temp Pulse Resp BP Pulse Ox 97.7 F 94 H 20 155/93 H 97 11/08/17 16:48 11/08/17 16:57 11/08/17 16:48 11/08/17 16:48 11/08/17 16:48 Intake and Output: 11/08/17 11/09/17 18:59 06:59 Intake Total 810 Output Total 1650 Balance -840 - Medications Medications: Current Medications Albuterol/Ipratropium (Duoneb 3 Mg/0.5 Mg (3 Ml) Ud) 3 ml INH RQ4 [facility] Last Admin: 11/08/17 20:15 Dose: 3 ml Allopurinol (Zyloprim) 100 mg PO DAILY [facility] Last Admin: 11/08/17 10:40 Dose: 100 mg Amlodipine Besylate (Norvasc) 5 mg PO DAILY [facility] Last Admin: 11/08/17 10:42 Dose: 5 mg Clonidine HCl (Catapres) 0.1 mg PO BID [facility] Last Admin: 11/08/17 18:40 Dose: 0.1 mg Clopidogrel Bisulfate (Plavix) 75 mg PO DAILY [facility] Last Admin: 11/08/17 10:40 Dose: 75 mg Famotidine (Pepcid) 20 mg PO Q12H [facility] Last Admin: 11/08/17 22:31 Dose: 20 mg Furosemide (Lasix) 40 mg IVP DAILY [facility] Last Admin: 11/08/17 10:42 Dose: 40 mg Hydralazine HCl (Apresoline) 50 mg PO Q8H [facility] Last Admin: 11/08/17 22:14 Dose: Not Given Azithromycin 500 mg/ Sodium (Chloride) 250 mls @ 250 mls/hr IVPB Q24H [facility] Last Admin: 11/08/17 18:40 Dose: 250 mls/hr Piperacillin Sod/Tazobactam Sod (Zosyn 3.375 Gm Iv Premix) 3.375 gm in 50 mls @ 100 mls/hr IVPB Q8H [facility] Last Admin: 11/08/17 22:32 Dose: 100 mls/hr Insulin Aspart (Novolog) 0 unit SC ACHS [facility] PRN Reason: Protocol Last Admin: 11/08/17 22:31 Dose: 4 unit Insulin Glargine (Lantus) 32 unit SC DAILY [facility] Last Admin: 11/08/17 10:41 Dose: 32 units Losartan Potassium (Cozaar) 100 mg PO DAILY [facility] Last Admin: 11/08/17 10:42 Dose: 100 mg Methylprednisolone (Solu-Medrol) 40 mg IVP Q6 [facility] Last Admin: 11/08/17 18:52 Dose: 40 mg Metoprolol Tartrate (Lopressor) 50 mg PO BID [facility] Last Admin: 11/08/17 18:40 Dose: 50 mg Fpnfe-0-Wyxn Ethyl Esters (Lovaza) 2 gm PO BID [facility] Last Admin: 11/08/17 18:40 Dose: 2 gm Rosuvastatin Calcium (Crestor) 5 mg PO HS [facility] Last Admin: 11/08/17 22:31 Dose: 5 mg - Labs Labs: 11/07/17 08:13 11/07/17 08:13 PT 12.5 SECONDS (9.7-12.2) H 11/02/17 15:50 INR 1.1 11/02/17 15:50 APTT 38 SECONDS (21-34) H 11/02/17 15:50 Assessment and Plan - Assessment and Plan (Free Text) Assessment: Elevated Troponin Assessment and Plan: Mildly elevated but later trended down: It could have been due to ischemic changes but may also be due to CHF exacerbation as well No ST segment changes appreciated on EKG 07/06 Cont to monitor Status: Acute CHF exacerbation Assessment and Plan: On IV Lasix as nedded ECHO: EF 65%, mild calcified thickening of aortic valve. Refer to complete report Status: Acute Hypertension Assessment and Plan: On Metoprolol, Cozaar and Hydralazine Status: Chronic History of coronary artery bypass graft Assessment and Plan: Crestor 10 mg PO HS On Metoprolol BID, Plavix daily Status: Chronic History of diabetes mellitus Assessment and Plan: Accuchecks Sliding scale Hold Parameters in place Status: Chronic History of TIA (transient ischemic attack) Assessment and Plan: Neuro on the case. See above. Cont to monitor Status: Acute Hypercholesterolemia Assessment and Plan: On Crestor Would benefit from diet and exercise modifications following current hospital course Status: Chronic Family history of cerebral aneurysm Assessment and Plan: Strong family history. Status: Acute Prophylactic measure Assessment and Plan: SCDs contraindicated due to swelling Heparin SC Q12 Pepcid 20 mg IV daily Status: Acute
[2017-11-09] MEDS: Albuterol-Ipratrop 3 mg / 0.5 (3 ml) UD INH SCH ×7 (00:03→23:43)
[2017-11-09] MEDS: MethylPREDNISolone 40 mg Vial IVP SCH ×4 (00:13→21:49)
--- NOTE | 2017-11-09 03:48 | PN ---
DATE: 11/08/2017 LOCATION: The patient is located in room 555, bedroom. REQUESTED BY: . REASON FOR FOLLOWUP: Chronic kidney disease for further evaluation. SUBJECTIVE: Mr. Flowers is a 67-year-old obese elderly Citizen Of [place] male with a past medical history significant for longstanding hypertension, diabetes, COPD, CHF, chronic kidney disease, basilar aneurysm, who was admitted with the chief complaints of cough, shortness of breath, and found to have influenza and also lung pneumonia. The patient is feeling better, not in acute distress and denies any chest pain or palpitation. Denies any fever or cough. No abdominal pain. No nausea, vomiting, or diarrhea. The patient is out of bed to chair. PHYSICAL EXAMINATION: VITAL SIGNS: As follows: Blood pressure 165/74, pulse 67, respirations 20, temperature 97.7, saturation 97%. Height 5 feet 6 inches, weight is 187 pounds. GENERAL: Mr. Flowers is a 67-year-old elderly obese Citizen [place] male, moderately built, moderate nourished, not in acute distress. HEENT: Pupils normally equal and reactive to light and accommodation. Conjunctivae pink. Sclerae anicteric. Tongue is moist. Trachea is midline. LUNGS: Symmetric on both sides. Bilateral breath sounds present. Clear on auscultation. CVS: [place] at the fifth intercostal space in midclavicular line. S1, S2 audible. No murmur or gallop. ABDOMEN: Normal in appearance, soft, tympanic. No guarding. No hepatosplenomegaly. 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 Sensory and motor system is grossly within normal limits. EXTREMITIES: No cyanosis, no clubbing, no edema. Cranial nerves II through XII grossly intact. CURRENT MEDICATIONS: Include as follows: Hydralazine 25 mg p.o. q.8 hours a day, azithromycin 500 mg IV piggyback q.24 hours, clonidine 0.1 mg p.o. b.i.d., losartan 100 mg p.o. daily, Crestor 5 mg at bedtime, DuoNeb inhaler q.4 hours, Lantus 32 units subcu daily, Lasix 40 mg IV daily, metoprolol 50 mg p.o. b.i.d., omega-3 fatty acid 2 g p.o. b.i.d., amlodipine 5 mg p.o. daily, NovoLog for sliding scale, Pepcid 20 mg q.12 hours, Plavix 75 mg daily, Solu-Medrol 40 mg IV piggyback q.6 hours, Zosyn 3.375 g IV q.8 hours, allopurinol 100 mg p.o. daily, Accu-Cheks 278 and 348. No new other labs are available for today. Blood culture as of 11/02/2017, positive for staph coag negative x1. Blood culture as of 11/03/2017 x2 negative day 5, and the MRSA screening was negative. ASSESSMENT: In summary, Mr. Flowers is a 67-year-old elderly male, moderately built, moderately nourished, with hypertension, diabetes, chronic obstructive pulmonary disease, congestive heart failure, chronic kidney disease, was admitted with cough, shortness of breath, and positive for pneumonia and left lung infiltrates. 1. Chronic kidney disease, most likely secondary to diabetic nephropathy, cannot rule out underlying . 2. Influenza pneumonia. 3. Chronic obstructive pulmonary disease. 4. Hypertension. Continue his current antihypertensive medication and also go on low-sodium diet. Continue hydralazine, clonidine, losartan, and amlodipine. Try to keep the blood pressure below 130/70. We will increase hydralazine to 50 mg q.8 hours. We will follow with you. Thank you for allowing me to participate in your patient's care. Susana Jones MD
[2017-11-09] MEDS: Piperacill/Tazo 3.375gm in Dex 3.375 GM/50 ML BAG IVPB SCH ×3 (04:28→19:08)
--- NOTE | 2017-11-09 07:11 | PN ---
DATE: 11/07/2017 SUBJECTIVE: The patient is transferred to the regular floor, room 555. The patient is confused. The patient is irritable. The patient's is allowed to stay, but will have to go ome to change her clothes. The patient is still obsessed with his . The patient has been taking off his psych meds because of history of hypoxia, is feeling much easier, but still has periods of confusion, still looking for his . PHYSICAL EXAMINATION: VITAL SIGNS: Temperature is 98, pulse rate is 65, blood pressure 174/98, respirations 20, oxygen saturation 96% with oxygen nasal cannula. The patient has a one-to-one watching him. GENERAL: The patient is alert and verbal, still with periods of confusion, conversing when his doctors came. HEENT: Headache. No dizziness. NECK: Supple. RESPIRATORY: Mild dyspnea. Not coughing. CARDIOVASCULAR: No chest pain. GASTROINTESTINAL: No nausea or vomiting. EXTREMITIES: The patient moving extremities. MUSCULOSKELETAL: Feels weak. NEUROLOGIC: Alert with periods of confusion, but resolving. GENITOURINARY: No dysuria. MENTAL STATUS EXAMINATION: Elderly male, obese, oriented x2. Mood is irritable and anxious. Affect is reactive. Speech is spontaneous. Thought process, confused often. Thought content,states his went home to change her clothes. No suicidal ideation. He has chronic delusions of morbid jealousy. Attention and memory seem to be limited. Insight and judgment are limited. Impulse control is guarded at this time. The patient has history of delirium, metabolic encephalopathy secondary to CHF as well as history of delusional disorder. The patient has a history of delusion and morbid jealousy, history of hypertension, as stated, CHF, CAD, history of CABG. PLAN/RECOMMENDATIONS: The patient is seen, meds reviewed. I agree with the one-to-one watch for now and we will also keep the patient off his psych meds. The patient is more redirectable when his is there. Continue treatment plan as outlined. Ren Kyle MD [facility]
[2017-11-09] MEDS: (Novolog) Insulin Aspart, Recombinant 100 u/ml 10 ml vial SC SCH ×4 (08:52→21:49)
[2017-11-09] MEDS: Omega-3-Acid Ethyl Esters 1 GM Cap PO SCH ×2 (10:52→17:35)
[2017-11-09] MEDS: (Lantus) Insulin Glargine, Recombinant SC SCH (10:53)
[2017-11-09 11:57] LABS: HEMOGLOBIN 11.6 g/dL (12.0-18.0); LYMPH # 0.2 K/uL (1.0-4.3); LYMPH % 2.8 % (20.0-40.0); MEAN CELL VOLUME 87.5 fL (80.0-94.0); MEAN CORPUSCULAR HEMOGLOBIN 27.7 pg (27.0-31.0); MEAN CORPUSCULAR HGB CONC 31.6 g/dL (33.0-37.0); MEAN PLATELET VOLUME 9.2 fL (7.2-11.7); MONO # 0.1 K/uL (0.0-0.8); MONO % 1.7 % (0.0-10.0); NEUT # 5.6 K/uL (1.8-7.0); NEUT % 95.5 % (50.0-75.0); NRBC % 0.1 % (0.0-2.0); PLATELET COUNT 166 K/uL (130-400); RED CELL DISTRIBUTION WIDTH 15.5 % (11.5-14.5); WHITE BLOOD COUNT 5.8 K/uL (4.8-10.8)
[2017-11-09 12:19] LABS: ALB/GLOB RATIO 1.1 (1.0-2.1); ALBUMIN 2.9 g/dL (3.5-5.0); CALCIUM 8.3 mg/dl (8.6-10.4)
[2017-11-09 12:47] LABS: ANISOCYTOSIS SLIGHT; BANDS 1 % (0-2); LYMPHOCYTE 2 % (20-40); MONOCYTE 1 % (0-10); NEUTROPHIL 96 % (50-75); PLATELET ESTIMATE NORMAL (NORMAL); TOTAL CELLS COUNTED 100
--- NOTE | 2017-11-09 13:41 | CP.PCM.PN ---
Subjective - Date & Time of Evaluation Date of Evaluation: 11/09/17 Time of Evaluation: 13:40 - Subjective Subjective: pt is seen and examined, follow up consult is dictated #[id number] Felix on ckd r/o Mgus Objective - Vital Signs/Intake and Output Vital Signs (last 24 hours): Temp Pulse Resp BP Pulse Ox 97.4 F L 85 20 168/89 H 97 11/09/17 07:25 11/09/17 08:27 11/09/17 07:25 11/09/17 10:51 11/09/17 07:25 Intake and Output: 11/09/17 11/09/17 06:59 18:59 Output Total 2100 Balance -2100 - Medications Medications: Current Medications Albuterol/Ipratropium (Duoneb 3 Mg/0.5 Mg (3 Ml) Ud) 3 ml INH RQ4 [facility] Last Admin: 11/09/17 07:27 Dose: 3 ml Allopurinol (Zyloprim) 100 mg PO DAILY [facility] Last Admin: 11/09/17 10:51 Dose: 100 mg Amlodipine Besylate (Norvasc) 5 mg PO DAILY [facility] Last Admin: 11/09/17 10:53 Dose: 5 mg Clonidine HCl (Catapres) 0.1 mg PO BID [facility] Last Admin: 11/09/17 10:51 Dose: 0.1 mg Clopidogrel Bisulfate (Plavix) 75 mg PO DAILY [facility] Last Admin: 11/09/17 10:52 Dose: 75 mg Famotidine (Pepcid) 20 mg PO Q12H [facility] Last Admin: 11/09/17 08:52 Dose: 20 mg Furosemide (Lasix) 40 mg IVP DAILY [facility] Last Admin: 11/09/17 10:51 Dose: 40 mg Hydralazine HCl (Apresoline) 50 mg PO Q8H [facility] Last Admin: 11/09/17 13:29 Dose: 50 mg Azithromycin 500 mg/ Sodium (Chloride) 250 mls @ 250 mls/hr IVPB Q24H [facility] Last Admin: 11/08/17 18:40 Dose: 250 mls/hr Piperacillin Sod/Tazobactam Sod (Zosyn 3.375 Gm Iv Premix) 3.375 gm in 50 mls @ 100 mls/hr IVPB Q8H [facility] Last Admin: 11/09/17 12:58 Dose: 100 mls/hr Insulin Aspart (Novolog) 0 unit SC ACHS [facility] PRN Reason: Protocol Last Admin: 11/09/17 13:27 Dose: 12 unit Insulin Glargine (Lantus) 32 unit SC DAILY [facility] Last Admin: 11/09/17 10:53 Dose: 32 units Losartan Potassium (Cozaar) 100 mg PO DAILY [facility] Last Admin: 11/09/17 10:52 Dose: 100 mg Methylprednisolone (Solu-Medrol) 40 mg IVP Q6 [facility] Last Admin: 11/09/17 12:58 Dose: 40 mg Metoprolol Tartrate (Lopressor) 50 mg PO BID [facility] Last Admin: 11/09/17 10:51 Dose: 50 mg Dgarl-7-Fjvg Ethyl Esters (Lovaza) 2 gm PO BID [facility] Last Admin: 11/09/17 10:52 Dose: 2 gm Rosuvastatin Calcium (Crestor) 5 mg PO HS [facility] Last Admin: 11/08/17 22:31 Dose: 5 mg - Labs Labs: 11/09/17 11:48 11/09/17 11:48 PT 12.5 SECONDS (9.7-12.2) H 11/02/17 15:50 INR 1.1 11/02/17 15:50 APTT 38 SECONDS (21-34) H 11/02/17 15:50
--- NOTE | 2017-11-09 14:21 | CP.PCM.PN ---
Subjective - Date & Time of Evaluation Date of Evaluation: 11/09/17 Time of Evaluation: 12:50 - Subjective Subjective: Patient seen and examined at bedside resting comfortably. No acute distress. Breathing has improved. Off Bipap, on nasal cannula. Creatinine is trending down, 2.5 today. Will continue to treat for pneumonia. Assessment/ Plan 1. Dyspnea - CXR 11/07: Interval worsening of heterogenous opacities at the Left lung since the prior exam. Re-demonstration of consolidation overlying the right lung PE. - Influenza A positive - Azithromycin and Zosyn - methylprednisone, duonebs - nasal cannula -Consider repeat ABG Objective - Vital Signs/Intake and Output Vital Signs (last 24 hours): Temp Pulse Resp BP Pulse Ox 97.4 F L 85 20 168/89 H 97 11/09/17 07:25 11/09/17 08:27 11/09/17 07:25 11/09/17 10:51 11/09/17 07:25 Intake and Output: 11/09/17 11/09/17 06:59 18:59 Output Total 2100 Balance -2100 - Medications Medications: Current Medications Albuterol/Ipratropium (Duoneb 3 Mg/0.5 Mg (3 Ml) Ud) 3 ml INH RQ4 [facility] Last Admin: 11/09/17 14:12 Dose: 3 ml Allopurinol (Zyloprim) 100 mg PO DAILY [facility] Last Admin: 11/09/17 10:51 Dose: 100 mg Amlodipine Besylate (Norvasc) 5 mg PO DAILY [facility] Last Admin: 11/09/17 10:53 Dose: 5 mg Clonidine HCl (Catapres) 0.1 mg PO BID [facility] Last Admin: 11/09/17 10:51 Dose: 0.1 mg Clopidogrel Bisulfate (Plavix) 75 mg PO DAILY [facility] Last Admin: 11/09/17 10:52 Dose: 75 mg Famotidine (Pepcid) 20 mg PO Q12H [facility] Last Admin: 11/09/17 08:52 Dose: 20 mg Furosemide (Lasix) 40 mg IVP DAILY [facility] Last Admin: 11/09/17 10:51 Dose: 40 mg Hydralazine HCl (Apresoline) 50 mg PO Q8H [facility] Last Admin: 11/09/17 13:29 Dose: 50 mg Azithromycin 500 mg/ Sodium (Chloride) 250 mls @ 250 mls/hr IVPB Q24H [facility] Last Admin: 11/08/17 18:40 Dose: 250 mls/hr Piperacillin Sod/Tazobactam Sod (Zosyn 3.375 Gm Iv Premix) 3.375 gm in 50 mls @ 100 mls/hr IVPB Q8H [facility] Last Admin: 11/09/17 12:58 Dose: 100 mls/hr Insulin Aspart (Novolog) 0 unit SC ACHS [facility] PRN Reason: Protocol Last Admin: 11/09/17 13:27 Dose: 12 unit Insulin Glargine (Lantus) 32 unit SC DAILY [facility] Last Admin: 11/09/17 10:53 Dose: 32 units Losartan Potassium (Cozaar) 100 mg PO DAILY [facility] Last Admin: 11/09/17 10:52 Dose: 100 mg Methylprednisolone (Solu-Medrol) 40 mg IVP Q6 [facility] Last Admin: 11/09/17 12:58 Dose: 40 mg Metoprolol Tartrate (Lopressor) 50 mg PO BID [facility] Last Admin: 11/09/17 10:51 Dose: 50 mg Urble-3-Nmhd Ethyl Esters (Lovaza) 2 gm PO BID [facility] Last Admin: 11/09/17 10:52 Dose: 2 gm Rosuvastatin Calcium (Crestor) 5 mg PO HS [facility] Last Admin: 11/08/17 22:31 Dose: 5 mg - Labs Labs: 11/09/17 11:48 11/09/17 11:48 PT 12.5 SECONDS (9.7-12.2) H 11/02/17 15:50 INR 1.1 11/02/17 15:50 APTT 38 SECONDS (21-34) H 11/02/17 15:50 Assessment and Plan (1) Respiratory failure with hypercapnia Status: Acute (2) Pneumonia Status: Acute (3) Influenza A Status: Acute
[2017-11-09] MEDS ORDERED: (Lantus) Insulin Glargine, Recombinant SC SCH (16:58)
[2017-11-09] MEDS: Azithromycin 500 MG in Sodium Chloride 0.9% 250 ML IVPB SCH (17:35)
--- NOTE | 2017-11-09 18:25 | PN ---
DATE: 11/09/2017 SUBJECTIVE: The patient is seen. The patient is much calmer today, less confused, and he has been resting. His went home. No behavioral problems reported by the staff. He has been compliant with meds. The patient, however, is off of his psych meds. Clinically, he is improving and also amenable to go for subacute rehab. PHYSICAL EXAMINATION: VITAL SIGNS: Temperature is 97.4, pulse was 85, blood pressure 168/89, respirations 20, O2 saturations is 97%. The patient seems to do much better with presence of his at the hospital because of his chronic delusion of morbid jealously. REVIEW OF SYSTEMS: GENERAL: He is sleepy but arousable, resting, conversing with doctor in [employer]. He is just feeling okay. SKIN: No diaphoresis. HEENT: No headache. No dizziness. NECK: Supple. RESPIRATORY: No dyspnea. CARDIOVASCULAR: No chest pain. GASTROINTESTINAL: No nausea, no vomiting, no abdominal pain. EXTREMITIES: The patient is moving extremities. MUSCULOSKELETAL: Generalized weakness. NEUROLOGIC: Alert, oriented x3, less confused. VITAL SIGNS: As stated, his vital signs, temperature is 97.4, pulse was 85, blood pressure 168/89, respirations 20, and O2 saturations is 97%. he is much better. MENTAL STATUS EXAMINATION: An elderly male who looks stated age of [place] descent, sleepy but arousable cognitively much improved, conversing in Tag[place]. Mood is calmer. Affect is reactive. Speech is spontaneous. Thought process, less confused. Thought content, less preoccupied about his . He said he is willing to go for subacute rehab. No overt psychosis. No suicidal ideation. Attention and memory seemed to be improving. Insight and judgment are improving. Impulse control is fair at this time. IMPRESSION: History of delirium, metabolic encephalopathy secondary to exacerbation of chronic heart failure, history of delusional disorder. 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 PLAN AND RECOMMENDATION: The patient was seen and meds reviewed. Continue present management. The patient is awaiting medical clearance to go for subacute rehab. We will keep him off psych meds for now, but we will let his stay in the hospital to reassure the patient. The patient still wants to go for subacute rehab as I think it may benefit the patient he go to another rehab that is more accessible for public transportation as the patient's does not drive, possibly [facility] or probably [facility] as public transportation are more accessible. The patient is currently looking for his . Ren Kyle MD
--- NOTE | 2017-11-09 23:06 | CP.PCM.PN ---
Subjective - Date & Time of Evaluation Date of Evaluation: 11/09/17 Time of Evaluation: 10:50 - Subjective Subjective: Patient seen and evaluated No cardiac events noted Physical Examination - Constitutional Appears: Non-toxic, No Acute Distress - Head Exam Head Exam: ATRAUMATIC, NORMAL INSPECTION, NORMOCEPHALIC - Eye Exam Eye Exam: EOMI, PERRL - ENT Exam ENT Exam: Mucous Membranes Moist - Neck Exam Neck Exam: Full ROM - Respiratory Exam Respiratory Exam: absent: Wheezes - Cardiovascular Exam Cardiovascular Exam: +S1, +S2 - GI/Abdominal Exam GI & Abdominal Exam: Soft, Normal Bowel Sounds - Extremities Exam Extremities Exam: Normal Capillary Refill, Pedal Edema (1+ pitting). absent: Tenderness - Psychiatric Exam Psychiatric exam: Flat Affect - Skin Skin Exam: Dry, Normal Color, Warm Objective - Vital Signs/Intake and Output Vital Signs (last 24 hours): Temp Pulse Resp BP Pulse Ox 98 F 74 20 149/74 97 11/09/17 16:38 11/09/17 20:00 11/09/17 16:38 11/09/17 16:38 11/09/17 16:38 Intake and Output: 11/09/17 11/10/17 18:59 06:59 Intake Total 550 800 Output Total 1800 1300 Balance -1250 -500 - Medications Medications: Current Medications Albuterol/Ipratropium (Duoneb 3 Mg/0.5 Mg (3 Ml) Ud) 3 ml INH RQ4 [facility] Last Admin: 11/09/17 20:08 Dose: 3 ml Allopurinol (Zyloprim) 100 mg PO DAILY [facility] Last Admin: 11/09/17 10:51 Dose: 100 mg Amlodipine Besylate (Norvasc) 5 mg PO DAILY [facility] Last Admin: 11/09/17 10:53 Dose: 5 mg Clonidine HCl (Catapres) 0.1 mg PO BID [facility] Last Admin: 11/09/17 17:34 Dose: 0.1 mg Clopidogrel Bisulfate (Plavix) 75 mg PO DAILY [facility] Last Admin: 11/09/17 10:52 Dose: 75 mg Famotidine (Pepcid) 20 mg PO Q12H [facility] Last Admin: 11/09/17 19:08 Dose: 20 mg Furosemide (Lasix) 40 mg IVP DAILY [facility] Last Admin: 11/09/17 10:51 Dose: 40 mg Hydralazine HCl (Apresoline) 50 mg PO Q8H [facility] Last Admin: 11/09/17 21:47 Dose: 50 mg Azithromycin 500 mg/ Sodium (Chloride) 250 mls @ 250 mls/hr IVPB Q24H [facility] Last Admin: 11/09/17 17:35 Dose: 250 mls/hr Piperacillin Sod/Tazobactam Sod (Zosyn 3.375 Gm Iv Premix) 3.375 gm in 50 mls @ 100 mls/hr IVPB Q8H [facility] Last Admin: 11/09/17 19:08 Dose: 100 mls/hr Insulin Aspart (Novolog) 0 unit SC ACHS [facility] PRN Reason: Protocol Last Admin: 11/09/17 21:49 Dose: 2 unit Insulin Glargine (Lantus) 35 unit SC DAILY [facility] Losartan Potassium (Cozaar) 100 mg PO DAILY [facility] Last Admin: 11/09/17 10:52 Dose: 100 mg Methylprednisolone (Solu-Medrol) 20 mg IVP Q8 [facility] Last Admin: 11/09/17 21:49 Dose: 20 mg Metoprolol Tartrate (Lopressor) 50 mg PO BID [facility] Last Admin: 11/09/17 17:35 Dose: 50 mg Evxfz-6-Szqj Ethyl Esters (Lovaza) 2 gm PO BID [facility] Last Admin: 11/09/17 17:35 Dose: 2 gm Rosuvastatin Calcium (Crestor) 5 mg PO HS [facility] Last Admin: 11/09/17 21:49 Dose: 5 mg - Labs Labs: 11/09/17 11:48 11/09/17 11:48 PT 12.5 SECONDS (9.7-12.2) H 11/02/17 15:50 INR 1.1 11/02/17 15:50 APTT 38 SECONDS (21-34) H 11/02/17 15:50 Assessment and Plan - Assessment and Plan (Free Text) Assessment: Elevated Troponin Assessment and Plan: Mildly elevated but later trended down: It could have been due to ischemic changes but may also be due to CHF exacerbation as well No ST segment changes appreciated on EKG 07/06 Cont to monitor Status: Acute CHF exacerbation Assessment and Plan: On IV Lasix as nedded ECHO: EF 65%, mild calcified thickening of aortic valve. Refer to complete report Status: Acute Hypertension Assessment and Plan: On Metoprolol, Cozaar and Hydralazine Status: Chronic History of coronary artery bypass graft Assessment and Plan: Crestor 10 mg PO HS On Metoprolol BID, Plavix daily Status: Chronic History of diabetes mellitus Assessment and Plan: Accuchecks Sliding scale Hold Parameters in place Status: Chronic History of TIA (transient ischemic attack) Assessment and Plan: Neuro on the case. See above. Cont to monitor Status: Acute Hypercholesterolemia Assessment and Plan: On Crestor Would benefit from diet and exercise modifications following current hospital course Status: Chronic Family history of cerebral aneurysm Assessment and Plan: Strong family history. Status: Acute Prophylactic measure Assessment and Plan: SCDs contraindicated due to swelling Heparin SC Q12 Pepcid 20 mg IV daily Status: Acute
[2017-11-10] MEDS: Albuterol-Ipratrop 3 mg / 0.5 (3 ml) UD INH SCH ×6 (03:09→23:48)
[2017-11-10] MEDS: Piperacill/Tazo 3.375gm in Dex 3.375 GM/50 ML BAG IVPB SCH (03:54)
[2017-11-10] MEDS ORDERED: Piperacillin/Tazobact 3.375 GM in Sodium Chloride 0.9% 100 ML IVPB SCH ×2 (06:30→12:00)
[2017-11-10] MEDS: MethylPREDNISolone 40 mg Vial IVP SCH ×3 (06:31→21:44)
[2017-11-10 07:38] LABS: BASO % 0.1 % (0.0-2.0); HEMOGLOBIN 11.6 g/dL (12.0-18.0); LYMPH # 0.7 K/uL (1.0-4.3); MEAN CELL VOLUME 87.3 fL (80.0-94.0); MEAN PLATELET VOLUME 9.3 fL (7.2-11.7); MONO # 0.5 K/uL (0.0-0.8); MONO % 5.2 % (0.0-10.0); NEUT # 8.4 K/uL (1.8-7.0); NEUT % 87.7 % (50.0-75.0); NRBC % 0.1 % (0.0-2.0); PLATELET COUNT 168 K/uL (130-400); RBC 4.16 Mil/uL (4.40-5.90); RED CELL DISTRIBUTION WIDTH 15.9 % (11.5-14.5)
[2017-11-10 07:44] LABS: WHITE BLOOD COUNT 9.6 K/uL (4.8-10.8)
[2017-11-10 07:49] LABS: ALBUMIN 2.8 g/dL (3.5-5.0); CALCIUM 8.5 mg/dl (8.6-10.4)
[2017-11-10] MEDS: (Novolog) Insulin Aspart, Recombinant 100 u/ml 10 ml vial SC SCH ×4 (08:30→21:45)
[2017-11-10] MEDS: Omega-3-Acid Ethyl Esters 1 GM Cap PO SCH ×2 (09:53→17:30)
[2017-11-10 09:58] LABS: LYMPHOCYTE 6 % (20-40); MONOCYTE 5 % (0-10); NEUTROPHIL 89 % (50-75); PLATELET ESTIMATE NORMAL (NORMAL); TOTAL CELLS COUNTED 100
[2017-11-10 09:59] LABS: ANISOCYTOSIS SLIGHT; HYPOCHROMIC SLIGHT; MICROCYTOSIS SLIGHT; OVALOCYTES SLIGHT; POIKILOCYTOSIS SLIGHT
--- NOTE | 2017-11-10 10:21 | PN ---
FOLLOWUP RENAL CONSULTATION DATE: 11/09/2017 LOCATION: The patient is located in room 555. SUBJECTIVE: Mr. Berger is a 67-year-old elderly Turkish male with a past medical history significant for longstanding hypertension, diabetes, proteinuria and basilar aneurysm, COPD, CHF, who was admitted with a cough, shortness of breath and found to have a left lung infiltrates and also influenza positive. The patient was started on Tamiflu. The patient is feeling much better, not in acute distress. Denies any headache or dizziness. Denies any chest pain or palpitation. No fever. No cough. No abdominal pain. No nausea, vomiting or diarrhea. PHYSICAL EXAMINATION: VITAL SIGNS: As follows; as of 11/09/2017, blood pressure 168/89, pulse 76, respirations 20, temperature 98 and saturation 97%. Height 5 feet 6 inches and weight is 187 pounds. GENERAL: Mr. Berger is an 67-year-old elderly male, moderately built, moderately nourished, and not in acute distress. HEENT: Pupils are normal and reactive to light and accommodation. Conjunctivae pink. Sclerae is anicteric. Tongue is moist and trachea is midline. LUNGS: Symmetric on both sides. Bilateral breath sounds present. Clear on auscultation. CARDIOVASCULAR: [place] at the fifth intercostal space, midclavicular line. S1 and S2 audible. No murmur or gallop. ABDOMEN: Normal in appearance, soft and tympanic. No guarding. No rigidity. No hepatosplenomegaly. CENTRAL NERVOUS SYSTEM: The patient is alert, awake, and oriented x2 to 3. Sensory and motor system is grossly within normal limits. EXTREMITIES: No cyanosis. No clubbing. No edema. CURRENT MEDICATIONS: As follows; hydralazine 50 mg p.o. q.8 hours, azithromycin 500 mg q.24 hours, clonidine 0.1 mg p.o. b.i.d., losartan 100 mg p.o. daily, Crestor 5 mg at bedtime, DuoNeb inhaler 3 mL q.4 hours, Lantus insulin 35 units subcutaneous daily, Lasix 40 mg IV daily, metoprolol 50 mg p.o. b.i.d., Lovaza 2 g p.o. b.i.d., Norvasc 5 mg p.o. daily, Novolog insulin for sliding scale, Pepcid 20 mg p.o. q.12 hours, Plavix 75 mg p.o. daily, Solu-Medrol 20 mg IV q.8 hours, digoxin 3.375 g IV q.8 hours and allopurinol 100 mg p.o. daily. LABORATORY DATA: Include as follows; WBC 5.8, hemoglobin 11.6, hematocrit 36.8 and platelets 166. Sodium 136, potassium 4.4, chloride 92, CO2 of 37, BUN 53, creatinine 2.1, glucose 493 and calcium 8.3. Total bili 0.4, AST 12, ALT 17, alkaline phosphate 47, total protein 5.8 and albumin is 2.9. His baseline creatinine on admission as of 11/02/2017 is 1.8 and as of 11/03/2017 creatinine 1.9 and as of 11/04/2017 creatinine 3.0. ASSESSMENT AND PLAN: In summary, Mr. Berger is a 67-year-old obese elderly Turkish male with a history of longstanding hypertension diabetes, proteinuria, congestive heart failure, and chronic obstructive pulmonary disease, who was admitted with a cough, shortness of breath and found to have a left lung infiltrates and also positive for influenza, status post Tamiflu and also increased BUN and creatinine. 1. Acute renal failure on chronic kidney disease stage 3. 2. Influenza. 3. Left lung pneumonia. 4. Hypertension. 5. Uncontrolled diabetes. 6. Proteinuria most likely secondary to diabetic nephropathy, cannot rule out . Continue IV antibiotics as per Pulmonary recommendations and increase p.o. fluid and continue his current antihypertensive medications, hydralazine, losartan and amlodipine and also metoprolol. Consider to increase hydralazine to 50 mg q.6 hours try to hold for systolic blood pressure less than 120. We will follow with you. Thank you for allowing me to participate in your patient's care. Susana Jones MD
--- NOTE | 2017-11-10 12:17 | CP.PCM.PN ---
Subjective - Date & Time of Evaluation Date of Evaluation: 11/10/17 Time of Evaluation: 12:17 - Subjective Subjective: pt is seen and examined, follow up consult is dictated #[id number] Objective - Vital Signs/Intake and Output Vital Signs (last 24 hours): Temp Pulse Resp BP Pulse Ox 98.1 F 68 20 161/93 H 98 11/10/17 07:25 11/10/17 07:25 11/10/17 07:25 11/10/17 09:55 11/10/17 07:25 Intake and Output: 11/10/17 11/10/17 06:59 18:59 Intake Total 800 Output Total 1300 1000 Balance -500 -1000 - Medications Medications: Current Medications Albuterol/Ipratropium (Duoneb 3 Mg/0.5 Mg (3 Ml) Ud) 3 ml INH RQ4 [facility] Last Admin: 11/10/17 07:20 Dose: 3 ml Allopurinol (Zyloprim) 100 mg PO DAILY [facility] Last Admin: 11/10/17 09:54 Dose: 100 mg Amlodipine Besylate (Norvasc) 5 mg PO DAILY [facility] Last Admin: 11/10/17 09:54 Dose: 5 mg Clonidine HCl (Catapres) 0.1 mg PO BID [facility] Last Admin: 11/10/17 09:54 Dose: 0.1 mg Clopidogrel Bisulfate (Plavix) 75 mg PO DAILY [facility] Last Admin: 11/10/17 09:55 Dose: 75 mg Famotidine (Pepcid) 20 mg PO Q12H [facility] Last Admin: 11/10/17 08:33 Dose: 20 mg Furosemide (Lasix) 40 mg IVP DAILY [facility] Last Admin: 11/10/17 09:55 Dose: 40 mg Hydralazine HCl (Apresoline) 50 mg PO Q6H [facility] Last Admin: 11/10/17 06:31 Dose: 50 mg Azithromycin 500 mg/ Sodium (Chloride) 250 mls @ 250 mls/hr IVPB Q24H [facility] Last Admin: 11/09/17 17:35 Dose: 250 mls/hr Piperacillin Sod/Tazobactam (Sod 3.375 gm/ Sodium Chloride) 100 mls @ 100 mls/ hr IVPB Q8H [facility] Last Admin: 11/10/17 11:38 Dose: 100 mls/hr Insulin Aspart (Novolog) 0 unit SC ACHS [facility] PRN Reason: Protocol Last Admin: 11/10/17 08:30 Dose: 6 unit Insulin Glargine (Lantus) 37 unit SC DAILY [facility] Losartan Potassium (Cozaar) 100 mg PO DAILY [facility] Last Admin: 11/10/17 09:55 Dose: 100 mg Methylprednisolone (Solu-Medrol) 20 mg IVP Q8 [facility] Last Admin: 11/10/17 06:31 Dose: 20 mg Metoprolol Tartrate (Lopressor) 50 mg PO BID [facility] Last Admin: 11/10/17 09:54 Dose: 50 mg Svjge-5-Tzft Ethyl Esters (Lovaza) 2 gm PO BID [facility] Last Admin: 11/10/17 09:53 Dose: 2 gm Rosuvastatin Calcium (Crestor) 5 mg PO HS [facility] Last Admin: 11/09/17 21:49 Dose: 5 mg - Labs Labs: 11/10/17 07:16 11/10/17 07:16 PT 12.5 SECONDS (9.7-12.2) H 11/02/17 15:50 INR 1.1 11/02/17 15:50 APTT 38 SECONDS (21-34) H 11/02/17 15:50
--- NOTE | 2017-11-10 12:33 | CARD ---
APPROVED REPORT EKG Measurement Heart [id number] CO P13 [id number] <Conclusion> Sinus tachycardia with 2nd degree AV block (Mobitz I) Right bundle branch block Left anterior fascicular block Bifascicular block Minimal voltage criteria for LVH, may be normal variant Cannot rule out Inferior infarct (masked by fascicular block?), age undetermined Abnormal ECG
--- NOTE | 2017-11-10 15:05 | PN ---
DATE: 11/10/2017 SUBJECTIVE: The patient is seen. The patient is resting today, seen with his . According to , he was agitated last night and was having some visual hallucination. He was seeing some mosquitos in his room. The patient is also refusing to go to subacute rehab. The patient is awaiting medical clearance. According to the , when he went to rehab he was creating some problems because he wants to go home. The patient just wants to go home once he is medically cleared. PHYSICAL EXAMINATION: VITAL SIGNS: Temperature 98.1, pulse 68, blood pressure 161/93, respirations 20, oxygen saturations 98%. GENERAL: The patient was agitated last night but was able to be re-directed and he was given some sleeping pill last night. REVIEW OF SYSTEMS: GENERAL: He is sleepy but arousable, lying in bed, not agitated, less confused. SKIN: No diaphoresis. HEENT: No headache. No dizziness. NECK: Supple. RESPIRATORY: No dyspnea. CARDIOVASCULAR: No chest pain. GASTROINTESTINAL: The patient is eating well. EXTREMITIES: Gait is as stated. MUSCULOSKELETAL: Feels weak. NEUROLOGIC: Sleepy, but arousable, less confused, oriented to place and person. MENTAL STATUS EXAMINATION: Elderly male who looks stated age, oriented x2. Mood is dysphoric. Affect is restricted. Speech is spontaneous. Thought process, less confused. Thought content, the patient does not want to go to subacute rehab. He wants to go home with his . No psychosis. No suicidal ideation. Attention and memory seemed to be limited. Insight and judgment are limited. Impulse control is guarded at this time. 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 PLAN AND RECOMMENDATIONS: The patient was seen and meds reviewed. Continue present management. The patient will take p.r.n. of temazepam to help him sleep. Other than that, we will keep him off from Xanax p.r.n. The patient is awaiting medical clearance to go home. The patient does not want to go for subacute when asked. As stated his vital signs, temperature 98.1, pulse 68, blood pressure 161/93, respirations 20, oxygen saturations 98%. He has been compliant with his meds. Prognosis is guarded at this time. Ren Kyle MD
--- NOTE | 2017-11-10 15:38 | CP.PCM.PN ---
Subjective - Date & Time of Evaluation Date of Evaluation: 11/10/17 Time of Evaluation: 12:30 - Subjective Subjective: Patient seen and examined at bedside resting comfortably. No acute distress. Breathing has improved. Off Bipap, on nasal cannula. Creatinine is trending down , 2.3 today from 2.5 yesterday. Discussing plan for discharge to subacute rehab. Will continue to treat for pneumonia. Assessment/ Plan 1. pneumonia - CXR 11/07: Interval worsening of heterogenous opacities at the Left lung since the prior exam. Re-demonstration of consolidation overlying the right lung PE. - Influenza A positive - Azithromycin and Zosyn - methylprednisone, duonebs - nasal cannula -Consider repeat ABG Objective - Vital Signs/Intake and Output Vital Signs (last 24 hours): Temp Pulse Resp BP Pulse Ox 98.1 F 76 20 161/93 H 98 11/10/17 07:25 11/10/17 08:00 11/10/17 07:25 11/10/17 09:55 11/10/17 07:25 Intake and Output: 11/10/17 11/10/17 06:59 18:59 Intake Total 800 300 Output Total 1300 3000 Balance -500 -2700 - Medications Medications: Current Medications Albuterol/Ipratropium (Duoneb 3 Mg/0.5 Mg (3 Ml) Ud) 3 ml INH RQ4 [facility] Last Admin: 11/10/17 13:26 Dose: 3 ml Allopurinol (Zyloprim) 100 mg PO DAILY [facility] Last Admin: 11/10/17 09:54 Dose: 100 mg Amlodipine Besylate (Norvasc) 5 mg PO DAILY [facility] Last Admin: 11/10/17 09:54 Dose: 5 mg Clonidine HCl (Catapres) 0.1 mg PO BID [facility] Last Admin: 11/10/17 09:54 Dose: 0.1 mg Clopidogrel Bisulfate (Plavix) 75 mg PO DAILY [facility] Last Admin: 11/10/17 09:55 Dose: 75 mg Famotidine (Pepcid) 20 mg PO Q12H [facility] Last Admin: 11/10/17 08:33 Dose: 20 mg Furosemide (Lasix) 40 mg IVP DAILY [facility] Last Admin: 11/10/17 09:55 Dose: 40 mg Hydralazine HCl (Apresoline) 50 mg PO Q6H [facility] Last Admin: 11/10/17 12:39 Dose: 50 mg Azithromycin 500 mg/ Sodium (Chloride) 250 mls @ 250 mls/hr IVPB Q24H [facility] Last Admin: 11/09/17 17:35 Dose: 250 mls/hr Piperacillin Sod/Tazobactam (Sod 3.375 gm/ Sodium Chloride) 100 mls @ 100 mls/ hr IVPB Q8H [facility] Last Admin: 11/10/17 11:38 Dose: 100 mls/hr Insulin Aspart (Novolog) 0 unit SC ACHS [facility] PRN Reason: Protocol Last Admin: 11/10/17 12:30 Dose: 10 unit Insulin Glargine (Lantus) 37 unit SC HS [facility] Losartan Potassium (Cozaar) 100 mg PO DAILY [facility] Last Admin: 11/10/17 09:55 Dose: 100 mg Methylprednisolone (Solu-Medrol) 20 mg IVP Q8 [facility] Last Admin: 11/10/17 14:19 Dose: 20 mg Metoprolol Tartrate (Lopressor) 50 mg PO BID [facility] Last Admin: 11/10/17 09:54 Dose: 50 mg Rlrxl-1-Acpd Ethyl Esters (Lovaza) 2 gm PO BID [facility] Last Admin: 11/10/17 09:53 Dose: 2 gm Rosuvastatin Calcium (Crestor) 5 mg PO HS [facility] Last Admin: 11/09/17 21:49 Dose: 5 mg - Labs Labs: 11/10/17 07:16 11/10/17 07:16 PT 12.5 SECONDS (9.7-12.2) H 11/02/17 15:50 INR 1.1 11/02/17 15:50 APTT 38 SECONDS (21-34) H 11/02/17 15:50 Assessment and Plan (1) Respiratory failure with hypercapnia Status: Acute (2) Pneumonia Status: Acute (3) Influenza A Status: Acute
[2017-11-10] MEDS: Azithromycin 500 MG in Sodium Chloride 0.9% 250 ML IVPB SCH (17:32)
--- NOTE | 2017-11-10 19:18 | CP.PCM.PN ---
Subjective - Date & Time of Evaluation Date of Evaluation: 11/10/17 Time of Evaluation: 00:00 - Subjective Subjective: Patient seen- feeding self- has very good appetite report of agitation last night and patient received benzo and episode of good sleep, this am, patient is very active answers questions correctly Discussion with Pulmonary- no further proceduure discussion with cardio- plan of cath will catch up with neuro Objective - Vital Signs/Intake and Output Vital Signs (last 24 hours): Temp Pulse Resp BP Pulse Ox 97.8 F 75 20 132/73 95 11/10/17 15:51 11/10/17 18:17 11/10/17 15:51 11/10/17 15:51 11/10/17 15:51 Intake and Output: 11/10/17 11/11/17 18:59 06:59 Intake Total 300 Output Total 3000 Balance -2700 - Medications Medications: Current Medications Albuterol/Ipratropium (Duoneb 3 Mg/0.5 Mg (3 Ml) Ud) 3 ml INH RQ4 [facility] Last Admin: 11/10/17 17:00 Dose: 3 ml Allopurinol (Zyloprim) 100 mg PO DAILY [facility] Last Admin: 11/10/17 09:54 Dose: 100 mg Amlodipine Besylate (Norvasc) 5 mg PO DAILY [facility] Last Admin: 11/10/17 09:54 Dose: 5 mg Clonidine HCl (Catapres) 0.1 mg PO BID [facility] Last Admin: 11/10/17 17:30 Dose: 0.1 mg Clopidogrel Bisulfate (Plavix) 75 mg PO DAILY [facility] Last Admin: 11/10/17 09:55 Dose: 75 mg Famotidine (Pepcid) 20 mg PO Q12H [facility] Last Admin: 11/10/17 08:33 Dose: 20 mg Furosemide (Lasix) 40 mg IVP DAILY [facility] Last Admin: 11/10/17 09:55 Dose: 40 mg Hydralazine HCl (Apresoline) 50 mg PO Q6H [facility] Last Admin: 11/10/17 17:30 Dose: 50 mg Piperacillin Sod/Tazobactam Sod (Zosyn 2.25 Gm Iv Premix) 2.25 gm in 50 mls @ 100 mls/hr IVPB Q6H [facility] Insulin Aspart (Novolog) 0 unit SC ACHS [facility] PRN Reason: Protocol Last Admin: 11/10/17 17:28 Dose: 10 unit Insulin Glargine (Lantus) 37 unit SC [facility] Losartan Potassium (Cozaar) 100 mg PO DAILY [facility] Last Admin: 11/10/17 09:55 Dose: 100 mg Methylprednisolone (Solu-Medrol) 20 mg IVP Q8 [facility] Last Admin: 11/10/17 14:19 Dose: 20 mg Metoprolol Tartrate (Lopressor) 50 mg PO BID [facility] Last Admin: 11/10/17 17:30 Dose: 50 mg Imujm-3-Ntts Ethyl Esters (Lovaza) 2 gm PO BID [facility] Last Admin: 11/10/17 17:30 Dose: 2 gm Rosuvastatin Calcium (Crestor) 5 mg PO HS [facility] Last Admin: 11/09/17 21:49 Dose: 5 mg - Labs Labs: 11/10/17 07:16 11/10/17 07:16 PT 12.5 SECONDS (9.7-12.2) H 11/02/17 15:50 INR 1.1 11/02/17 15:50 APTT 38 SECONDS (21-34) H 11/02/17 15:50 - Constitutional Appears: Non-toxic (eating good, active, answers questions correctly ) - Head Exam Head Exam: ATRAUMATIC, NORMOCEPHALIC - Eye Exam Eye Exam: Normal appearance. absent: Nystagmus - ENT Exam ENT Exam: Mucous Membranes Moist - Neck Exam Neck Exam: Full ROM. absent: Tenderness - Respiratory Exam Respiratory Exam: Clear to Ausculation Bilateral, NORMAL BREATHING PATTERN - Cardiovascular Exam Cardiovascular Exam: REGULAR RHYTHM - GI/Abdominal Exam GI & Abdominal Exam: Soft, Normal Bowel Sounds - Extremities Exam Extremities Exam: Full ROM - Neurological Exam Neurological Exam: Alert, Awake, Normal Gait, Oriented x3 - Psychiatric Exam Psychiatric exam: Normal Affect, Normal Mood - Skin Skin Exam: Intact, Normal Color Assessment and Plan - Assessment and Plan (Free Text) Assessment: Patient with CAD with plan for cath- as discussed with cardiology Pulmo- improving Neuro / aneurysm stable History of TIA - on Plavix- discussed issues of plavix and aneurysm IDDM2- with big appetite- will adfjust Insulin and threat monitoring analyst Hypertension controlled now Delusional disorder /agitation on and off , medications accordingly discussion with and patient
[2017-11-10] MEDS: Piperacill/Tazo 2.25gm in Dex 2.25 GM/50 ML BAG IVPB SCH (20:53)
[2017-11-10] MEDS ORDERED: (Lantus) Insulin Glargine, Recombinant SC SCH (22:00)
--- NOTE | 2017-11-10 23:19 | CP.PCM.PN ---
Subjective - Date & Time of Evaluation Date of Evaluation: 11/10/17 Time of Evaluation: 18:05 - Subjective Subjective: Patient seen and evaluated Cardiac Cath priot to discharge Physical Examination - Constitutional Appears: Non-toxic, No Acute Distress - Head Exam Head Exam: ATRAUMATIC, NORMAL INSPECTION, NORMOCEPHALIC - Eye Exam Eye Exam: EOMI, PERRL - ENT Exam ENT Exam: Mucous Membranes Moist - Neck Exam Neck Exam: Full ROM - Respiratory Exam Respiratory Exam: absent: Wheezes - Cardiovascular Exam Cardiovascular Exam: +S1, +S2 - GI/Abdominal Exam GI & Abdominal Exam: Soft, Normal Bowel Sounds - Extremities Exam Extremities Exam: Normal Capillary Refill, Pedal Edema (1+ pitting). absent: Tenderness - Psychiatric Exam Psychiatric exam: Flat Affect - Skin Skin Exam: Dry, Normal Color, Warm Objective - Vital Signs/Intake and Output Vital Signs (last 24 hours): Temp Pulse Resp BP Pulse Ox 97.8 F 72 20 132/73 95 11/10/17 15:51 11/10/17 20:33 11/10/17 15:51 11/10/17 15:51 11/10/17 15:51 Intake and Output: 11/10/17 11/11/17 18:59 06:59 Intake Total 300 900 Output Total 3000 Balance -2700 900 - Medications Medications: Current Medications Albuterol/Ipratropium (Duoneb 3 Mg/0.5 Mg (3 Ml) Ud) 3 ml INH RQ4 [facility] Last Admin: 11/10/17 20:18 Dose: 3 ml Allopurinol (Zyloprim) 100 mg PO DAILY [facility] Last Admin: 11/10/17 09:54 Dose: 100 mg Amlodipine Besylate (Norvasc) 5 mg PO DAILY [facility] Last Admin: 11/10/17 09:54 Dose: 5 mg Clonidine HCl (Catapres) 0.1 mg PO BID [facility] Last Admin: 11/10/17 17:30 Dose: 0.1 mg Clopidogrel Bisulfate (Plavix) 75 mg PO DAILY [facility] Last Admin: 11/10/17 09:55 Dose: 75 mg Famotidine (Pepcid) 20 mg PO Q12H [facility] Last Admin: 11/10/17 19:22 Dose: 20 mg Furosemide (Lasix) 40 mg IVP DAILY [facility] Last Admin: 11/10/17 09:55 Dose: 40 mg Hydralazine HCl (Apresoline) 50 mg PO Q6H [facility] Last Admin: 11/10/17 17:30 Dose: 50 mg Piperacillin Sod/Tazobactam Sod (Zosyn 2.25 Gm Iv Premix) 2.25 gm in 50 mls @ 100 mls/hr IVPB Q6H [facility] Last Admin: 11/10/17 20:53 Dose: 100 mls/hr Insulin Aspart (Novolog) 0 unit SC ACHS [facility] PRN Reason: Protocol Last Admin: 11/10/17 21:45 Dose: 2 unit Insulin Glargine (Lantus) 37 unit SC HS [facility] Last Admin: 11/10/17 21:45 Dose: 37 units Losartan Potassium (Cozaar) 100 mg PO DAILY [facility] Last Admin: 11/10/17 09:55 Dose: 100 mg Methylprednisolone (Solu-Medrol) 20 mg IVP Q8 [facility] Last Admin: 11/10/17 21:44 Dose: 20 mg Metoprolol Tartrate (Lopressor) 50 mg PO BID [facility] Last Admin: 11/10/17 17:30 Dose: 50 mg Vpmnv-3-Hszb Ethyl Esters (Lovaza) 2 gm PO BID [facility] Last Admin: 11/10/17 17:30 Dose: 2 gm Rosuvastatin Calcium (Crestor) 5 mg PO HS [facility] Last Admin: 11/10/17 21:44 Dose: 5 mg - Labs Labs: 11/10/17 07:16 11/10/17 07:16 PT 12.5 SECONDS (9.7-12.2) H 11/02/17 15:50 INR 1.1 11/02/17 15:50 APTT 38 SECONDS (21-34) H 11/02/17 15:50 Assessment and Plan - Assessment and Plan (Free Text) Assessment: Elevated Troponin Assessment and Plan: Mildly elevated but later trended down: It could have been due to ischemic changes but may also be due to CHF exacerbation as well No ST segment changes appreciated on EKG 07/06 Cont to monitor Status: Acute CHF exacerbation Assessment and Plan: On IV Lasix as nedded ECHO: EF 65%, mild calcified thickening of aortic valve. Refer to complete report Status: Acute Hypertension Assessment and Plan: On Metoprolol, Cozaar and Hydralazine Status: Chronic History of coronary artery bypass graft Assessment and Plan: Crestor 10 mg PO HS On Metoprolol BID, Plavix daily Status: Chronic History of diabetes mellitus Assessment and Plan: Accuchecks Sliding scale Hold Parameters in place Status: Chronic History of TIA (transient ischemic attack) Assessment and Plan: Neuro on the case. See above. Cont to monitor Status: Acute Hypercholesterolemia Assessment and Plan: On Crestor Would benefit from diet and exercise modifications following current hospital course Status: Chronic Family history of cerebral aneurysm Assessment and Plan: Strong family history. Status: Acute Prophylactic measure Assessment and Plan: SCDs contraindicated due to swelling Heparin SC Q12 Pepcid 20 mg IV daily Status: Acute
[2017-11-11] MEDS: Piperacill/Tazo 2.25gm in Dex 2.25 GM/50 ML BAG IVPB SCH ×4 (01:59→20:11)
--- NOTE | 2017-11-11 02:56 | PN ---
DATE: 11/10/2017. FOLLOWUP RENAL CONSULTATION LOCATION: Room 555. REASON FOR FOLLOWUP: Acute renal failure, chronic kidney disease. SUBJECTIVE: Mr. Flowers is a 67 years old elderly [place] male with a history of longstanding hypertension, diabetes, hyperlipidemia, CHF, coronary artery disease, basilar aneurysm, and also status post CABG who was admitted initially with chief complaints of shortness of breath and cough and the patient was found to have influenza and started on Tamiflu and also left lung infiltrates. The patient was also found to have worsening renal function. The patient is feeling much better, not in acute distress and the patient also has a good urine output. No chest pain or palpitation. No fever. No cough. No abdominal pain. No nausea, vomiting, diarrhea. PHYSICAL EXAMINATION: VITAL SIGNS: This morning as follows; blood pressure 161/93, pulse 60, respirations 20, temperature 97.8, saturation 95%. Height 5 feet 6 inches and weight is 187 pounds. GENERAL: Mr. Flowers is a 67 years old male, moderately built, moderately nourished, not in distress. HEENT: Pupils normal, reactive to light and accommodation. Conjunctivae pink. Sclerae anicteric. Tongue is moist. Trachea is midline. LUNGS: Symmetric on both sides. Bilateral breath sounds present. Clear on auscultation. CVS: [place] at the fifth intercostal space, midclavicular line. S1 and S1 audible. No murmur or gallop. ABDOMEN: Normal in appearance, soft, tympanic. No guarding, no rigidity. No hepatosplenomegaly. DIRECTOR CORRECTIONAL AGENCY: The patient is alert, awake, oriented x2-3. Sensory and motor system is grossly within normal limits. EXTREMITIES: No cyanosis, no clubbing, no edema. CURRENT MEDICATIONS: Include as follows; hydralazine 50 mg q. 6 hours, clonidine 0.1 mg p.o. b.i.d., losartan 100 mg p.o. daily, Crestor 5 mg at bedtime, DuoNeb inhaler, Lantus 37 units subcu at bedtime, Lasix 40 mg IV daily, metoprolol 50 mg p.o. b.i.d., omega-3 fatty acid 2 gm p.o. b.i.d., amlodipine 5 mg daily, Pepcid 20 mg daily, Plavix 75 mg daily, Solu-Medrol 20 mg IV q. 8 hours, Zosyn 2.25 gm IV q. 6 hours, allopurinol 100 mg p.o. daily. LABORATORY DATA: His current laboratory data include as follows as of 11/10/2017; WBC 9.8, hemoglobin 11.6, hematocrit is 36.3, platelets 168 , sodium 138, potassium is 4, chloride 94, CO2 37, BUN 48, creatinine 2.3, glucose 300, calcium 8.5, total bili 0.3, AST 10, ALT 17, alkaline phosphatase 43, total protein 5.5, albumin is 2.8. ASSESSMENT: In summary, Mr. Flowers is a 67 years old male with a history of hypertension, diabetes, hyperlipidemia, coronary artery disease status post coronary artery bypass graft, congestive heart failure, chronic obstructive pulmonary disease, basilar aneurysm with left lung opacities status post treatment with increased BUN and creatinine on IV antibiotics. 1. Acute renal failure on chronic kidney disease most likely secondary to mild acute tubular necrosis secondary to pneumonia and influenza, renal function is slowly improving. 2. Hypertension. Blood pressure is improving. Continue his current medication, hydralazine 50 mg q. 6 hours, Norvasc 5 mg daily, metoprolol 50 mg b.i.d., clonidine 0.1 mg p.o. b.i.d., Cozaar 100 mg p.o. daily and Lasix 40 IV daily. PLAN: We will follow with you. Also low sodium, low potassium diet. Consider to follow up with escort service attendant to rule out MAGUS. The patient had positive UPEP and SPEP during his previous admission. Case discussed with Dr. Reza Motley and also Dr. Adams. Thank you for allowing me to participate in your patient's care. Susana Jones MD
[2017-11-11] MEDS: Albuterol-Ipratrop 3 mg / 0.5 (3 ml) UD INH SCH ×3 (04:22→13:43)
[2017-11-11] MEDS: MethylPREDNISolone 40 mg Vial IVP SCH (06:32)
[2017-11-11] MEDS: (Novolog) Insulin Aspart, Recombinant 100 u/ml 10 ml vial SC SCH ×4 (08:09→21:58)
[2017-11-11 08:41] LABS: EOS % 0.2 % (0.0-4.0); HEMOGLOBIN 11.9 g/dL (12.0-18.0); LYMPH # 0.5 K/uL (1.0-4.3); MEAN CORPUSCULAR HEMOGLOBIN 27.9 pg (27.0-31.0); MEAN CORPUSCULAR HGB CONC 32.1 g/dL (33.0-37.0); MEAN PLATELET VOLUME 8.2 fL (7.2-11.7); MONO # 0.2 K/uL (0.0-0.8); MONO % 2.6 % (0.0-10.0); NEUT # 8.1 K/uL (1.8-7.0); NEUT % 91.2 % (50.0-75.0); NRBC % 0.1 % (0.0-2.0); PLATELET COUNT 139 K/uL (130-400); RBC 4.25 Mil/uL (4.40-5.90); RED CELL DISTRIBUTION WIDTH 15.9 % (11.5-14.5); WHITE BLOOD COUNT 8.9 K/uL (4.8-10.8)
[2017-11-11] MEDS: Omega-3-Acid Ethyl Esters 1 GM Cap PO SCH ×2 (09:05→17:57)
[2017-11-11 09:13] LABS: ALB/GLOB RATIO 1.1 (1.0-2.1); ALBUMIN 2.8 g/dL (3.5-5.0); CALCIUM 8.3 mg/dl (8.6-10.4)
[2017-11-11 09:14] LABS: LYMPHOCYTE 6 % (20-40); MONOCYTE 1 % (0-10); NEUTROPHIL 93 % (50-75); TOTAL CELLS COUNTED 100
[2017-11-11 09:15] LABS: ANISOCYTOSIS SLIGHT; PLATELET ESTIMATE NORMAL (NORMAL)
[2017-11-11 09:22] LABS: HYPOCHROMIC SLIGHT
--- NOTE | 2017-11-11 12:13 | CP.PCM.PN ---
Subjective - Date & Time of Evaluation Date of Evaluation: 11/11/17 Time of Evaluation: 09:30 - Subjective Subjective: patient seen- sleeping- calm- arousable, responds to call by bedside, no unusual event no cough no fever patient's appetite is good BM is normal patient is calm and cooperative when is around Discussion with cardio and regarding cath plan Objective - Vital Signs/Intake and Output Vital Signs (last 24 hours): Temp Pulse Resp BP Pulse Ox 98.1 F 79 20 139/85 98 11/10/17 23:35 11/11/17 07:10 11/10/17 23:35 11/11/17 09:02 11/10/17 23:35 Intake and Output: 11/11/17 11/11/17 06:59 18:59 Intake Total 900 Balance 900 - Medications Medications: Current Medications Albuterol/Ipratropium (Duoneb 3 Mg/0.5 Mg (3 Ml) Ud) 3 ml INH RQ4 [facility] Last Admin: 11/11/17 04:22 Dose: 3 ml Allopurinol (Zyloprim) 100 mg PO DAILY [facility] Last Admin: 11/11/17 09:05 Dose: 100 mg Amlodipine Besylate (Norvasc) 5 mg PO DAILY [facility] Last Admin: 11/11/17 09:05 Dose: 5 mg Clonidine HCl (Catapres) 0.1 mg PO BID [facility] Last Admin: 11/11/17 09:05 Dose: 0.1 mg Clopidogrel Bisulfate (Plavix) 75 mg PO DAILY [facility] Last Admin: 11/11/17 09:05 Dose: 75 mg Famotidine (Pepcid) 20 mg PO Q12H [facility] Last Admin: 11/11/17 08:10 Dose: 20 mg Furosemide (Lasix) 40 mg IVP DAILY [facility] Last Admin: 11/11/17 09:02 Dose: 40 mg Hydralazine HCl (Apresoline) 50 mg PO Q6H [facility] Last Admin: 11/11/17 11:40 Dose: 50 mg Piperacillin Sod/Tazobactam Sod (Zosyn 2.25 Gm Iv Premix) 2.25 gm in 50 mls @ 100 mls/hr IVPB Q6H [facility] Last Admin: 11/11/17 09:00 Dose: 100 mls/hr Insulin Aspart (Novolog) 0 unit SC ACHS [facility] PRN Reason: Protocol Last Admin: 11/11/17 11:40 Dose: 12 unit Insulin Glargine (Lantus) 40 unit SC [facility] Losartan Potassium (Cozaar) 100 mg PO DAILY [facility] Last Admin: 11/11/17 09:05 Dose: 100 mg Methylprednisolone (Solu-Medrol) 20 mg IVP Q8 [facility] Last Admin: 11/11/17 06:32 Dose: 20 mg Metoprolol Tartrate (Lopressor) 50 mg PO BID [facility] Last Admin: 11/11/17 09:05 Dose: 50 mg Tdnzo-4-Edtn Ethyl Esters (Lovaza) 2 gm PO BID [facility] Last Admin: 11/11/17 09:05 Dose: 2 gm Rosuvastatin Calcium (Crestor) 5 mg PO [facility] Last Admin: 11/10/17 21:44 Dose: 5 mg - Labs Labs: 11/11/17 08:23 11/11/17 08:23 PT 12.5 SECONDS (9.7-12.2) H 11/02/17 15:50 INR 1.1 11/02/17 15:50 APTT 38 SECONDS (21-34) H 11/02/17 15:50 - Constitutional Appears: Non-toxic (calm sleeping arousable ) - Head Exam Head Exam: ATRAUMATIC, NORMOCEPHALIC - Eye Exam Eye Exam: Normal appearance. absent: Nystagmus - ENT Exam ENT Exam: Mucous Membranes Moist - Neck Exam Neck Exam: Full ROM - Respiratory Exam Respiratory Exam: Decreased Breath Sounds, Wheezes (mild ), NORMAL BREATHING PATTERN - Cardiovascular Exam Cardiovascular Exam: REGULAR RHYTHM - GI/Abdominal Exam GI & Abdominal Exam: Soft, Normal Bowel Sounds. absent: Distended, Tenderness - Extremities Exam Extremities Exam: Full ROM. absent: Joint Swelling, Pedal Edema, Tenderness - Back Exam Back Exam: Full ROM. absent: tenderness - Neurological Exam Neurological Exam: Alert, Awake, Normal Gait, Oriented x3 - Psychiatric Exam Psychiatric exam: Normal Affect, Normal Mood - Skin Skin Exam: Intact, Normal Color Assessment and Plan - Assessment and Plan (Free Text) Assessment: Patient admitted for CHF ,COPD with good improvement Pneumonia - with good improvement - still on antibiotic Delusional disorder, dependent emotionally , off benzo- due to side effect CAD history of CABG- with plan of cath as per cardio CRI stable Ascending Aortic aneurysm- to control BP , on Beta niko IDDM2- adjusting insulin accordingly, dietary discussion and referral planning discharge discussion- planned home
[2017-11-11] MEDS ORDERED: (Novolog) Insulin Aspart, Recombinant 100 u/ml 10 ml vial SC ONE (12:23)
[2017-11-11] MEDS ORDERED: (Novolin R) Insulin Human Regular 100 units/ml vial SC ONE (13:00)
--- NOTE | 2017-11-11 17:41 | CP.PCM.PN ---
Subjective - Date & Time of Evaluation Date of Evaluation: 11/11/17 Time of Evaluation: 10:30 - Subjective Subjective: Patient seen and examined at bedside resting comfortably. No acute distress. The patient had no episodes of agitation overnight. Breathing has improved. Off Bipap, on nasal cannula. Creatinine is trending down, 2.2 today from 2.3 yesterday. Discussing plan for discharge to subacute rehab. Cardiology following ; considering cath. Will continue to treat for pneumonia. Assessment/ Plan 1. pneumonia - Influenza A positive - Azithromycin and Zosyn - methylprednisone, duonebs - nasal cannula -Consider repeat ABG - f/u with cardiology Objective - Vital Signs/Intake and Output Vital Signs (last 24 hours): Temp Pulse Resp BP Pulse Ox 97.6 F 71 20 155/78 H 98 11/11/17 16:30 11/11/17 16:30 11/11/17 16:30 11/11/17 16:30 11/11/17 16:30 Intake and Output: 11/11/17 11/11/17 06:59 18:59 Intake Total 900 450 Balance 900 450 - Medications Medications: Current Medications Allopurinol (Zyloprim) 100 mg PO DAILY [facility] Last Admin: 11/11/17 09:05 Dose: 100 mg Amlodipine Besylate (Norvasc) 5 mg PO DAILY [facility] Last Admin: 11/11/17 09:05 Dose: 5 mg Clonidine HCl (Catapres) 0.1 mg PO BID [facility] Last Admin: 11/11/17 09:05 Dose: 0.1 mg Clopidogrel Bisulfate (Plavix) 75 mg PO DAILY [facility] Last Admin: 11/11/17 09:05 Dose: 75 mg Famotidine (Pepcid) 20 mg PO Q12H [facility] Last Admin: 11/11/17 08:10 Dose: 20 mg Furosemide (Lasix) 40 mg IVP DAILY [facility] Last Admin: 11/11/17 09:02 Dose: 40 mg Hydralazine HCl (Apresoline) 50 mg PO Q6H [facility] Last Admin: 11/11/17 11:40 Dose: 50 mg Piperacillin Sod/Tazobactam Sod (Zosyn 2.25 Gm Iv Premix) 2.25 gm in 50 mls @ 100 mls/hr IVPB Q6H [facility] Last Admin: 11/11/17 13:51 Dose: 100 mls/hr Insulin Aspart (Novolog) 0 unit SC ACHS [facility] PRN Reason: Protocol Last Admin: 11/11/17 16:43 Dose: 12 unit Insulin Glargine (Lantus) 45 unit SC HS [facility] Losartan Potassium (Cozaar) 100 mg PO DAILY [facility] Last Admin: 11/11/17 09:05 Dose: 100 mg Metoprolol Tartrate (Lopressor) 50 mg PO BID [facility] Last Admin: 11/11/17 09:05 Dose: 50 mg Xeewt-0-Fbni Ethyl Esters (Lovaza) 2 gm PO BID [facility] Last Admin: 11/11/17 09:05 Dose: 2 gm Rosuvastatin Calcium (Crestor) 5 mg PO HS [facility] Last Admin: 11/10/17 21:44 Dose: 5 mg Temazepam (Restoril) 15 mg PO HS PRN PRN Reason: insomnia - Labs Labs: 11/11/17 08:23 11/11/17 08:23 PT 12.5 SECONDS (9.7-12.2) H 11/02/17 15:50 INR 1.1 11/02/17 15:50 APTT 38 SECONDS (21-34) H 11/02/17 15:50 Assessment and Plan (1) Respiratory failure with hypercapnia Status: Acute (2) Pneumonia Status: Acute (3) Influenza A Status: Acute
--- NOTE | 2017-11-11 18:32 | PN ---
DATE: 11/11/2017 SUBJECTIVE: The patient is seen in his room, resting comfortably. despite that his went home. The patient is reporting hallucinations. According to the nurse, the patient still not medically cleared for subacute rehab but cardiac tran, the patient was told that he might need a cardiac catheterization which he is willing to do so. The patient was complaining of chest pain since last night, no behavior problems noted. He is redirectable. His has been spending most of her time in the hospital with him. The patient seems to do much better when the is there. PHYSICAL EXAMINATION: VITAL SIGNS: Temperature 97.8, pulse is 66, blood pressure 139/85, respirations 20, oxygen saturations 96%. GENERAL: The patient right now is off any psych meds, also he has been getting sleeping pill at night regularly. I will try to give him sleeping pill as the patient seems to be taking his sleeping pill every night. REVIEW OF SYSTEMS: GENERAL: He is alert, currently he is sleepy but arousable, lying in bed, not in acute respiratory distress. SKIN: No diaphoresis. HEENT: No headache. No dizziness. NECK: Supple. RESPIRATORY: No dyspnea. CARDIOVASCULAR: No chest pain. GASTROINTESTINAL: No nausea, no vomiting. EXTREMITIES: Gait is steady. MUSCULOSKELETAL: Feels weak. NEUROLOGIC: Alert and oriented x3. The patient can speak in a soft voice but feeling weak. GENITOURINARY: No dysuria. MENTAL STATUS EXAMINATION: Elderly male, appears to be in no distress, sleepy, but arousable, oriented x3. The patient is resting comfortably. Mood is much calmer, less confused. Affect is reactive. Speech is spontaneous. Thought process is less confused as stated. Thought content, he has chronic delusional, some morbid jealousy with his , but this is chronic. The patient has been more redirectable, has been cooperative. No suicidal or homicidal ideation. No hallucination or paranoia. Attention and memory seemed to be fair. Insight and judgment are fair. Impulse control is fair. IMPRESSION: Delirium as well as metabolic encephalopathy secondary to exacerbation of chronic heart failure as well as history of chronic delusional disorder of morbid jealousy. PLAN AND RECOMMENDATIONS: The patient was seen and meds reviewed. Continue present management. We will try to give Restoril at bedtime as the patient seems to be asking for it every night to help him sleep. He seems to be tolerating the med well and has been given for the last few days. We will keep him off any other psych meds for now. The patient is still awaiting medical clearance for he might need, according to the nurse, a cardiac cath as per Dr. Butler. Once the patient is medically cleared, he can go for subacute rehab. Ren Kyle MD [facility]
--- NOTE | 2017-11-11 19:27 | CP.PCM.PN ---
Subjective - Date & Time of Evaluation Date of Evaluation: 11/11/17 Time of Evaluation: 19:26 - Subjective Subjective: pt is seen and examined, follow up consult is dictated #[id number] Objective - Vital Signs/Intake and Output Vital Signs (last 24 hours): Temp Pulse Resp BP Pulse Ox 97.6 F 71 20 155/78 H 98 11/11/17 16:30 11/11/17 16:30 11/11/17 16:30 11/11/17 16:30 11/11/17 16:30 Intake and Output: 11/11/17 11/12/17 18:59 06:59 Intake Total 450 Balance 450 - Medications Medications: Current Medications Allopurinol (Zyloprim) 100 mg PO DAILY [facility] Last Admin: 11/11/17 09:05 Dose: 100 mg Amlodipine Besylate (Norvasc) 5 mg PO DAILY [facility] Last Admin: 11/11/17 09:05 Dose: 5 mg Clonidine HCl (Catapres) 0.1 mg PO BID [facility] Last Admin: 11/11/17 17:57 Dose: 0.1 mg Clopidogrel Bisulfate (Plavix) 75 mg PO DAILY [facility] Last Admin: 11/11/17 09:05 Dose: 75 mg Famotidine (Pepcid) 20 mg PO Q12H [facility] Last Admin: 11/11/17 08:10 Dose: 20 mg Furosemide (Lasix) 40 mg IVP DAILY [facility] Last Admin: 11/11/17 09:02 Dose: 40 mg Hydralazine HCl (Apresoline) 50 mg PO Q6H [facility] Last Admin: 11/11/17 17:57 Dose: 50 mg Piperacillin Sod/Tazobactam Sod (Zosyn 2.25 Gm Iv Premix) 2.25 gm in 50 mls @ 100 mls/hr IVPB Q6H [facility] Last Admin: 11/11/17 13:51 Dose: 100 mls/hr Insulin Aspart (Novolog) 0 unit SC ACHS [facility] PRN Reason: Protocol Last Admin: 11/11/17 16:43 Dose: 12 unit Insulin Glargine (Lantus) 45 unit SC HS [facility] Losartan Potassium (Cozaar) 100 mg PO DAILY [facility] Last Admin: 11/11/17 09:05 Dose: 100 mg Metoprolol Tartrate (Lopressor) 50 mg PO BID [facility] Last Admin: 11/11/17 17:57 Dose: 50 mg Brkxd-1-Dush Ethyl Esters (Lovaza) 2 gm PO BID [facility] Last Admin: 11/11/17 17:57 Dose: 2 gm Rosuvastatin Calcium (Crestor) 5 mg PO HS [facility] Last Admin: 11/10/17 21:44 Dose: 5 mg Temazepam (Restoril) 15 mg PO HS PRN PRN Reason: insomnia - Labs Labs: 11/11/17 08:23 11/11/17 08:23 PT 12.5 SECONDS (9.7-12.2) H 11/02/17 15:50 INR 1.1 11/02/17 15:50 APTT 38 SECONDS (21-34) H 11/02/17 15:50
[2017-11-11] MEDS: (Lantus) Insulin Glargine, Recombinant SC SCH (21:15)
[2017-11-11] MEDS ORDERED: (Lantus) Insulin Glargine, Recombinant SC SCH (22:00)
--- NOTE | 2017-11-11 23:00 | CP.PCM.PN ---
Subjective - Date & Time of Evaluation Date of Evaluation: 11/11/17 Time of Evaluation: 11:00 - Subjective Subjective: Patient seen and evaluated For cardiac cath Thursday Physical Examination - Constitutional Appears: Non-toxic, No Acute Distress - Head Exam Head Exam: ATRAUMATIC, NORMAL INSPECTION, NORMOCEPHALIC - Eye Exam Eye Exam: EOMI, PERRL - ENT Exam ENT Exam: Mucous Membranes Moist - Neck Exam Neck Exam: Full ROM - Respiratory Exam Respiratory Exam: absent: Wheezes - Cardiovascular Exam Cardiovascular Exam: +S1, +S2 - GI/Abdominal Exam GI & Abdominal Exam: Soft, Normal Bowel Sounds - Extremities Exam Extremities Exam: Normal Capillary Refill, Pedal Edema (1+ pitting). absent: Tenderness - Psychiatric Exam Psychiatric exam: Flat Affect - Skin Skin Exam: Dry, Normal Color, Warm Objective - Vital Signs/Intake and Output Vital Signs (last 24 hours): Temp Pulse Resp BP Pulse Ox 97.6 F 71 20 155/78 H 98 11/11/17 16:30 11/11/17 16:30 11/11/17 16:30 11/11/17 16:30 11/11/17 16:30 Intake and Output: 11/11/17 11/12/17 18:59 06:59 Intake Total 450 350 Output Total 1200 Balance 450 -850 - Medications Medications: Current Medications Allopurinol (Zyloprim) 100 mg PO DAILY [facility] Last Admin: 11/11/17 09:05 Dose: 100 mg Amlodipine Besylate (Norvasc) 5 mg PO DAILY [facility] Last Admin: 11/11/17 09:05 Dose: 5 mg Clonidine HCl (Catapres) 0.1 mg PO BID [facility] Last Admin: 11/11/17 17:57 Dose: 0.1 mg Clopidogrel Bisulfate (Plavix) 75 mg PO DAILY [facility] Last Admin: 11/11/17 09:05 Dose: 75 mg Famotidine (Pepcid) 20 mg PO Q12H [facility] Last Admin: 11/11/17 20:05 Dose: 20 mg Furosemide (Lasix) 40 mg IVP DAILY [facility] Last Admin: 11/11/17 09:02 Dose: 40 mg Hydralazine HCl (Apresoline) 50 mg PO Q6H [facility] Last Admin: 11/11/17 17:57 Dose: 50 mg Piperacillin Sod/Tazobactam Sod (Zosyn 2.25 Gm Iv Premix) 2.25 gm in 50 mls @ 100 mls/hr IVPB Q6H [facility] Last Admin: 11/11/17 20:11 Dose: 100 mls/hr Insulin Aspart (Novolog) 0 unit SC ACHS [facility] PRN Reason: Protocol Last Admin: 11/11/17 21:58 Dose: 4 unit Insulin Glargine (Lantus) 45 unit SC HS [facility] Last Admin: 11/11/17 21:15 Dose: 45 units Losartan Potassium (Cozaar) 100 mg PO DAILY [facility] Last Admin: 11/11/17 09:05 Dose: 100 mg Metoprolol Tartrate (Lopressor) 50 mg PO BID [facility] Last Admin: 11/11/17 17:57 Dose: 50 mg Qwogj-6-Srub Ethyl Esters (Lovaza) 2 gm PO BID [facility] Last Admin: 11/11/17 17:57 Dose: 2 gm Rosuvastatin Calcium (Crestor) 5 mg PO HS [facility] Last Admin: 11/11/17 21:14 Dose: 5 mg Temazepam (Restoril) 15 mg PO HS PRN PRN Reason: insomnia - Labs Labs: 11/11/17 08:23 11/11/17 08:23 PT 12.5 SECONDS (9.7-12.2) H 11/02/17 15:50 INR 1.1 11/02/17 15:50 APTT 38 SECONDS (21-34) H 11/02/17 15:50 Assessment and Plan - Assessment and Plan (Free Text) Assessment: Elevated Troponin Assessment and Plan: Mildly elevated but later trended down: It could have been due to ischemic changes but may also be due to CHF exacerbation as well No ST segment changes appreciated on EKG 07/06 Cont to monitor Status: Acute CHF exacerbation Assessment and Plan: On IV Lasix as nedded ECHO: EF 65%, mild calcified thickening of aortic valve. Refer to complete report Status: Acute Hypertension Assessment and Plan: On Metoprolol, Cozaar and Hydralazine Status: Chronic History of coronary artery bypass graft Assessment and Plan: Crestor 10 mg PO HS On Metoprolol BID, Plavix daily Status: Chronic History of diabetes mellitus Assessment and Plan: Accuchecks Sliding scale Hold Parameters in place Status: Chronic History of TIA (transient ischemic attack) Assessment and Plan: Neuro on the case. See above. Cont to monitor Status: Acute Hypercholesterolemia Assessment and Plan: On Crestor Would benefit from diet and exercise modifications following current hospital course Status: Chronic Family history of cerebral aneurysm Assessment and Plan: Strong family history. Status: Acute Prophylactic measure Assessment and Plan: SCDs contraindicated due to swelling Heparin SC Q12 Pepcid 20 mg IV daily Status: Acute
[2017-11-12] MEDS: Piperacill/Tazo 2.25gm in Dex 2.25 GM/50 ML BAG IVPB SCH ×4 (03:00→20:53)
[2017-11-12] MEDS: (Novolog) Insulin Aspart, Recombinant 100 u/ml 10 ml vial SC SCH ×4 (07:33→21:50)
[2017-11-12 07:55] LABS: BASO % 0.1 % (0.0-2.0); EOS # 0.4 K/uL (0.0-0.7); LYMPH # 1.2 K/uL (1.0-4.3); LYMPH % 11.6 % (20.0-40.0); MEAN CELL VOLUME 86.5 fL (80.0-94.0); MEAN CORPUSCULAR HEMOGLOBIN 28.1 pg (27.0-31.0); MEAN CORPUSCULAR HGB CONC 32.5 g/dL (33.0-37.0); MEAN PLATELET VOLUME 9.3 fL (7.2-11.7); MONO # 0.5 K/uL (0.0-0.8); MONO % 4.9 % (0.0-10.0); NEUT # 8.1 K/uL (1.8-7.0); NEUT % 79.4 % (50.0-75.0); RBC 4.29 Mil/uL (4.40-5.90); RED CELL DISTRIBUTION WIDTH 16.2 % (11.5-14.5); WHITE BLOOD COUNT 10.2 K/uL (4.8-10.8)
[2017-11-12 08:14] LABS: ALB/GLOB RATIO 1.1 (1.0-2.1); ALBUMIN 2.6 g/dL (3.5-5.0); CALCIUM 7.6 mg/dl (8.6-10.4)
--- NOTE | 2017-11-12 09:00 | PN ---
DATE: 11/11/2017 FOLLOWUP RENAL CONSULTATION LOCATION: The patient is located in room 564, Bed A. REQUESTED BY: Paola Adams MD REASON FOR FOLLOWUP: Acute renal failure, chronic kidney disease. HISTORY OF PRESENT ILLNESS: Mr. Flowers is a 67 years old elderly, very pleasant [place]ian male with a past medical history significant for longstanding hypertension, diabetes, hyperlipidemia, proteinuria, chronic kidney disease stage III with a baseline creatinine about 1.8 and basilar aneurysm and intracranial, COPD, CHF, was admitted with chief complaints of cough, shortness of breath, and found to have influenza positive and also left lung infiltrates. The patient is being treated for pneumonia. The patient was also found to have worsening renal function since he was admitted. Baseline creatinine on admission was 1.9 and gradually increased to 3, now renal function is slowly improving. The patient is feeling much better. The patient is out of bed to chair. No complaints but seems confused from time to time. PHYSICAL EXAMINATIONS: VITAL SIGNS: As follows: Blood pressure 155/78, pulse 71, respirations 20, temperature 97.6, saturation 98%. Height 5 feet 6 inches, weight is 187 pounds. GENERAL: Mrs. Flowers is a 67 years old elderly [place]ian male, well built, well nourished, not in acute distress. HEENT: Pupils normal and reactive to light and accommodation. Conjunctivae pink. Sclerae anicteric. Tongue is moist. Trachea is midline. LUNGS: Symmetric on both sides. Bilateral breath sounds present. Clear on auscultation. CVS: [place] at the fifth intercostal space, midclavicular line. S1, S2 audible. No murmur or gallop. ABDOMEN: Normal in appearance, soft, tympanic. No guarding. No rigidity. No hepatosplenomegaly. LUMP MAKER: The patient is alert, awake, and oriented x3. Nonfocal neuro examination. Cranial nerves II through XII grossly intact. Sensory and motor system is within normal limits. EXTREMITIES: No cyanosis, no clubbing, no edema. MEDICATIONS: Current medications include as follows: Hydralazine 50 mg p.o. q.6 hours, clonidine 0.1 mg p.o. b.i.d., losartan 100 mg p.o. daily, Crestor 5 mg at bedtime, Lantus 45 units subcu at bedtime, Lasix 40 mg IV daily, Lopressor 50 mg p.o. b.i.d., Lovaza 2 gm p.o. b.i.d., Norvasc 5 mg daily, Pepcid 20 mg p.o. q.12 hours, Plavix 75 mg daily, Restoril 15 mg p.o. at bedtime, Zosyn 2.25 gm q.6 hours, allopurinol 100 mg p.o. daily. LABORATORY DATA: Include as follows. As of 11/11/2017, WBC 8.9, hemoglobin 11.9, hematocrit is 36.9, platelets of 139. Sodium 135, potassium 4.3, chloride 94, CO2 of 33, BUN 50, creatinine 2.2, glucose is 224, and calcium is 8.3. Total bili 0.3, AST of 10, ALT of 15, alkaline phosphatase 39, total protein 5.4, albumin is 2.8. IMPRESSION: In summary, again, Mr. Flowers is a 67 years old elderly male with hypertension, diabetes, chronic obstructive pulmonary disease, congestive heart failure, influenza, and pneumonia with increased BUN and creatinine and occasional confusion. 1. Renal failure, acute on chronic kidney disease, most likely secondary to acute tubular necrosis secondary to sepsis and pneumonia. Renal function is slowly improving. Creatinine now is 2.2. 2. Hypertension. Blood pressure is stable, improving. Continue his current medications hydralazine, clonidine, losartan, metoprolol, and Norvasc. 3. Anemia. Hemoglobin and hematocrit are stable. 4. Pneumonia. Continue Zosyn as per the PMD. We will follow with you. Thank you for allowing me to participate in your patient's care and followup with academic counselor for abnormal SPEP, UPEP from the previous admissions and rule out MGUS or multiple myeloma, and followup with the retail assistant manager, Corey Butler MD. Susana Jones MD
[2017-11-12] MEDS: Omega-3-Acid Ethyl Esters 1 GM Cap PO SCH ×2 (09:32→18:06)
--- NOTE | 2017-11-12 14:11 | CP.PCM.PN ---
Subjective - Date & Time of Evaluation Date of Evaluation: 11/12/17 Time of Evaluation: 14:11 - Subjective Subjective: pt is seen and examined, follow up consult is dictated #[id number] Objective - Vital Signs/Intake and Output Vital Signs (last 24 hours): Temp Pulse Resp BP Pulse Ox 98.1 F 64 20 141/84 97 11/12/17 07:05 11/12/17 14:01 11/12/17 07:05 11/12/17 13:01 11/12/17 07:05 Intake and Output: 11/12/17 11/12/17 06:59 18:59 Intake Total 350 Output Total 1200 1900 Balance -850 -1900 - Medications Medications: Current Medications Allopurinol (Zyloprim) 100 mg PO DAILY [facility] Last Admin: 11/12/17 09:31 Dose: 100 mg Amlodipine Besylate (Norvasc) 5 mg PO DAILY [facility] Last Admin: 11/12/17 09:33 Dose: 5 mg Clonidine HCl (Catapres) 0.1 mg PO BID [facility] Last Admin: 11/12/17 09:33 Dose: 0.1 mg Clopidogrel Bisulfate (Plavix) 75 mg PO DAILY [facility] Last Admin: 11/12/17 09:31 Dose: 75 mg Famotidine (Pepcid) 20 mg PO Q12H [facility] Last Admin: 11/12/17 09:31 Dose: 20 mg Furosemide (Lasix) 40 mg IVP DAILY [facility] Last Admin: 11/12/17 09:32 Dose: 40 mg Hydralazine HCl (Apresoline) 50 mg PO Q6H [facility] Last Admin: 11/12/17 13:01 Dose: 50 mg Piperacillin Sod/Tazobactam Sod (Zosyn 2.25 Gm Iv Premix) 2.25 gm in 50 mls @ 100 mls/hr IVPB Q6H [facility] Last Admin: 11/12/17 09:31 Dose: 100 mls/hr Insulin Aspart (Novolog) 0 unit SC ACHS [facility] PRN Reason: Protocol Last Admin: 11/12/17 13:00 Dose: 2 unit Insulin Glargine (Lantus) 45 unit SC HS [facility] Last Admin: 11/11/17 21:15 Dose: 45 units Losartan Potassium (Cozaar) 100 mg PO DAILY [facility] Last Admin: 11/12/17 09:33 Dose: 100 mg Metoprolol Tartrate (Lopressor) 50 mg PO BID [facility] Last Admin: 11/12/17 09:34 Dose: Not Given Ffdzp-3-Ioag Ethyl Esters (Lovaza) 2 gm PO BID [facility] Last Admin: 11/12/17 09:32 Dose: 2 gm Rosuvastatin Calcium (Crestor) 5 mg PO HS [facility] Last Admin: 11/11/17 21:14 Dose: 5 mg Temazepam (Restoril) 15 mg PO HS PRN PRN Reason: insomnia - Labs Labs: 11/12/17 07:47 11/12/17 07:47 PT 12.5 SECONDS (9.7-12.2) H 11/02/17 15:50 INR 1.1 11/02/17 15:50 APTT 38 SECONDS (21-34) H 11/02/17 15:50
--- NOTE | 2017-11-12 15:29 | CP.PCM.PN ---
Subjective - Date & Time of Evaluation Date of Evaluation: 11/12/17 Time of Evaluation: 11:30 - Subjective Subjective: patient seen- sleepin but arousable, condition discussed refused BP meds this am emotionally dependent on discussion of BP control and aneuy=rysm no other complaints Sugar on the high side- advised diet- controlled and sugar- normalized Objective - Vital Signs/Intake and Output Vital Signs (last 24 hours): Temp Pulse Resp BP Pulse Ox 98.1 F 64 20 141/84 97 11/12/17 07:05 11/12/17 14:01 11/12/17 07:05 11/12/17 13:01 11/12/17 07:05 Intake and Output: 11/12/17 11/12/17 06:59 18:59 Intake Total 350 Output Total 1200 1900 Balance -850 -1900 - Medications Medications: Current Medications Allopurinol (Zyloprim) 100 mg PO DAILY [facility] Last Admin: 11/12/17 09:31 Dose: 100 mg Amlodipine Besylate (Norvasc) 5 mg PO DAILY [facility] Last Admin: 11/12/17 09:33 Dose: 5 mg Clonidine HCl (Catapres) 0.1 mg PO BID [facility] Last Admin: 11/12/17 09:33 Dose: 0.1 mg Clopidogrel Bisulfate (Plavix) 75 mg PO DAILY [facility] Last Admin: 11/12/17 09:31 Dose: 75 mg Famotidine (Pepcid) 20 mg PO Q12H [facility] Last Admin: 11/12/17 09:31 Dose: 20 mg Furosemide (Lasix) 40 mg IVP DAILY [facility] Last Admin: 11/12/17 09:32 Dose: 40 mg Hydralazine HCl (Apresoline) 50 mg PO Q6H [facility] Last Admin: 11/12/17 13:01 Dose: 50 mg Piperacillin Sod/Tazobactam Sod (Zosyn 2.25 Gm Iv Premix) 2.25 gm in 50 mls @ 100 mls/hr IVPB Q6H [facility] Last Admin: 11/12/17 14:34 Dose: 100 mls/hr Insulin Aspart (Novolog) 0 unit SC ACHS [facility] PRN Reason: Protocol Last Admin: 11/12/17 13:00 Dose: 2 unit Insulin Glargine (Lantus) 45 unit SC HS [facility] Last Admin: 11/11/17 21:15 Dose: 45 units Losartan Potassium (Cozaar) 100 mg PO DAILY [facility] Last Admin: 11/12/17 09:33 Dose: 100 mg Metoprolol Tartrate (Lopressor) 50 mg PO BID [facility] Last Admin: 11/12/17 09:34 Dose: Not Given Yadct-5-Rjtw Ethyl Esters (Lovaza) 2 gm PO BID [facility] Last Admin: 11/12/17 09:32 Dose: 2 gm Rosuvastatin Calcium (Crestor) 5 mg PO HS [facility] Last Admin: 11/11/17 21:14 Dose: 5 mg Temazepam (Restoril) 15 mg PO HS PRN PRN Reason: insomnia - Labs Labs: 11/12/17 07:47 11/12/17 07:47 PT 12.5 SECONDS (9.7-12.2) H 11/02/17 15:50 INR 1.1 11/02/17 15:50 APTT 38 SECONDS (21-34) H 11/02/17 15:50 - Constitutional Appears: Non-toxic, No Acute Distress - Head Exam Head Exam: ATRAUMATIC, NORMOCEPHALIC - Eye Exam Eye Exam: Normal appearance. absent: Nystagmus - ENT Exam ENT Exam: Mucous Membranes Moist - Neck Exam Neck Exam: Full ROM. absent: Tenderness - Respiratory Exam Respiratory Exam: Decreased Breath Sounds, NORMAL BREATHING PATTERN. absent: Wheezes - Cardiovascular Exam Cardiovascular Exam: Clicks, Irregular Rhythm - GI/Abdominal Exam GI & Abdominal Exam: Soft, Normal Bowel Sounds. absent: Distended, Tenderness - Extremities Exam Extremities Exam: Full ROM. absent: Joint Swelling, Pedal Edema, Tenderness - Back Exam Back Exam: absent: rash noted - Psychiatric Exam Psychiatric exam: Normal Affect, Normal Mood - Skin Skin Exam: Intact Assessment and Plan - Assessment and Plan (Free Text) Assessment: Patient with COPD CHF Pneumonia inproving CAD A FIb- with recet fluid overload- plan for cath as per cardio IDDM2- on the high side- secondary to poor food control- further discussion with patient and - with improvement - continue insulin Delusional disorder, emotional dependence on - supportive discusssion- and patient wants home ,
--- NOTE | 2017-11-12 18:43 | CP.PCM.PN ---
Subjective - Date & Time of Evaluation Date of Evaluation: 11/12/17 Time of Evaluation: 09:30 - Subjective Subjective: Patient was seen and examined at the bedside. He was resting comfortably and accompanied by his . Patient is on nasal cannula and his breathing has improved. Creatinine slowly trending down to 2.1 today, yesterday 2.2. He is tolerating his medications. Assessment/Plan Pneumonia -afebrile -on nasal cannula -on zosyn -flu + Influenza -symptomatic management CHF -follow cardio recs Objective - Vital Signs/Intake and Output Vital Signs (last 24 hours): Temp Pulse Resp BP Pulse Ox 97.7 F 73 20 127/71 97 11/12/17 16:00 11/12/17 16:00 11/12/17 16:00 11/12/17 16:00 11/12/17 16:00 Intake and Output: 11/12/17 11/12/17 06:59 18:59 Intake Total 350 740 Output Total 1200 2600 Balance -850 -1860 - Medications Medications: Current Medications Allopurinol (Zyloprim) 100 mg PO DAILY [facility] Last Admin: 11/12/17 09:31 Dose: 100 mg Amlodipine Besylate (Norvasc) 5 mg PO DAILY [facility] Last Admin: 11/12/17 09:33 Dose: 5 mg Clonidine HCl (Catapres) 0.1 mg PO BID [facility] Last Admin: 11/12/17 18:06 Dose: 0.1 mg Clopidogrel Bisulfate (Plavix) 75 mg PO DAILY [facility] Last Admin: 11/12/17 09:31 Dose: 75 mg Famotidine (Pepcid) 20 mg PO Q12H [facility] Last Admin: 11/12/17 09:31 Dose: 20 mg Furosemide (Lasix) 40 mg IVP DAILY [facility] Last Admin: 11/12/17 09:32 Dose: 40 mg Hydralazine HCl (Apresoline) 50 mg PO Q6H [facility] Last Admin: 11/12/17 18:06 Dose: 50 mg Piperacillin Sod/Tazobactam Sod (Zosyn 2.25 Gm Iv Premix) 2.25 gm in 50 mls @ 100 mls/hr IVPB Q6H [facility] Last Admin: 11/12/17 14:34 Dose: 100 mls/hr Insulin Aspart (Novolog) 0 unit SC ACHS [facility] PRN Reason: Protocol Last Admin: 11/12/17 18:08 Dose: 2 unit Insulin Glargine (Lantus) 45 unit SC HS [facility] Last Admin: 11/11/17 21:15 Dose: 45 units Losartan Potassium (Cozaar) 100 mg PO DAILY [facility] Last Admin: 11/12/17 09:33 Dose: 100 mg Metoprolol Tartrate (Lopressor) 50 mg PO BID [facility] Last Admin: 11/12/17 18:06 Dose: 50 mg Vpipv-6-[id number] Ethyl Esters (Lovaza) 2 gm PO BID [facility] Last Admin: 11/12/17 18:06 Dose: 2 gm Rosuvastatin Calcium (Crestor) 5 mg PO HS [facility] Last Admin: 11/11/17 21:14 Dose: 5 mg Temazepam (Restoril) 15 mg PO HS PRN PRN Reason: insomnia - Labs Labs: 11/12/17 07:47 11/12/17 07:47 PT 12.5 SECONDS (9.7-12.2) H 11/02/17 15:50 INR 1.1 11/02/17 15:50 APTT 38 SECONDS (21-34) H 11/02/17 15:50 Assessment and Plan (1) Respiratory failure with hypercapnia Status: Acute (2) Pneumonia Status: Acute (3) Influenza A Status: Acute
[2017-11-12] MEDS: (Lantus) Insulin Glargine, Recombinant SC SCH (21:49)
--- NOTE | 2017-11-13 00:30 | PN ---
DATE: 11/12/2017. SUBJECTIVE: The patient is seen, psych tran he is doing much better, more verbal and cooperative, but still constantly looking for his . According to , the patient called almost 20 to 30 times today. The patient will be going for cardiac cath tomorrow to be done with Dr. Butler. The patient is reluctant to go for subacute rehab and wants to go home, his wants to take him home as patient is obsessed with his . The patient has delusion of morbid jealousy, which is known as [place] syndrome and his was not allowed to stay. If patient's has been allowed to stay in the hospital that seems to keep him calm, but when the is out of sight, the patient goes ballistic and becomes very delusional and paranoid causing him to get anxious. He seems to do much better when the is present. Considering his psychiatric issue, I suggest if the patient could be managed at home, it will be preferable that the patient would go home with the rather than going to the rehab and the will not be able to be with him, which raises the anxiety in the patient and the patient becomes very anxious compounding his medical problems. Last night the patient did not require any sleeping pill. PHYSICAL EXAMINATION VITAL SIGNS: Temperature 97.7, pulse 73, blood pressure 127/71, respirations 20 and oxygen saturation 97%. REVIEW OF SYSTEMS: GENERAL: He is alert and oriented x3, in his room watching TV, calm, cooperative, not confused. He states he is willing to go for cardiac cath to be done in the morning and wants to go home after that was medically cleared. SKIN: No diaphoresis. HEENT: No headache, no dizziness. NECK: Supple. RESPIRATORY: No dyspnea. CARDIOVASCULAR: No chest pain. GASTROINTESTINAL: He is eating fairly well. EXTREMITIES: Moving extremities. MUSCULOSKELETAL: Weakness improving. NEUROLOGIC: Alert and oriented x3. He did not have any new problems. MENTAL STATUS EXAMINATION: Elderly male of [place] descent oriented x3, much clamer. Speech spontaneous. Affect is reactive. Seen with his , the has been staying in the hospital accompanying him. Thought process coherent. Thought content, has chronic illusion, morbid jealousy, but no suicidal thoughts or ideations or psychosis. No hallucinations. The patient recently had visual hallucinations seeing his kids, but denies anything. He has been sleeping well and eating well. Attention and memory seem to be fair. Insight and judgment limited. Impulse control is fair at this time. 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 PLAN AND RECOMMENDATIONS: The patient is seen. Meds reviewed. Continue present management. The patient continue treatment plan as outlined. If the patient will become medically cleared, I would prefer the patient to go home with his as the states she can handle him at home. If he goes to the rehab and the will not be allowed to stay, the patient will have exacerbation of his psychotic symptoms, which might lead him to have relapse with his medical problems. The patient seems to do well when the is around. We will hold off any other medication for now considering the patient has had very significant cardiac problems and antipsychotic to treat the delusion may make his medical condition worse. Other than that this kind of condition is very refractory to treatment especially with medicine, especially this is a chronic problem. Ren Kyle MD MTDColleen
[2017-11-13] MEDS: Piperacill/Tazo 2.25gm in Dex 2.25 GM/50 ML BAG IVPB SCH ×3 (02:30→14:21)
[2017-11-13] MEDS ORDERED: Dextrose 50% SYRINGE Inj (50 ml) IVP PRN (06:28)
[2017-11-13] MEDS ORDERED: Dextrose 50% VIAL Inj (50 ml) IV ONE (06:36)
--- NOTE | 2017-11-13 08:32 | CP.PCM.PN ---
Subjective - Date & Time of Evaluation Date of Evaluation: 11/13/17 Time of Evaluation: 09:00 - Subjective Subjective: Episode of hypoglycemia noted was able to control patients diet- and sugar got controlled there was no other unsusal event further Diabetic control discussed is currently NPO for planned cardiac catheterization no pthet complaints plan for home discussed they want home Objective - Vital Signs/Intake and Output Vital Signs (last 24 hours): Temp Pulse Resp BP Pulse Ox 97.8 F 59 L 20 133/85 100 11/13/17 07:14 11/13/17 07:14 11/13/17 07:14 11/13/17 07:14 11/13/17 07:14 Intake and Output: 11/13/17 11/13/17 06:59 18:59 Output Total 1700 Balance -1700 - Medications Medications: Current Medications Allopurinol (Zyloprim) 100 mg PO DAILY [facility] Last Admin: 11/12/17 09:31 Dose: 100 mg Amlodipine Besylate (Norvasc) 5 mg PO DAILY [facility] Last Admin: 11/12/17 09:33 Dose: 5 mg Clonidine HCl (Catapres) 0.1 mg PO BID [facility] Last Admin: 11/12/17 18:06 Dose: 0.1 mg Clopidogrel Bisulfate (Plavix) 75 mg PO DAILY [facility] Last Admin: 11/12/17 09:31 Dose: 75 mg Dextrose (Dextrose 50% Inj) 0 ml IVP .STAT PRN; Protocol PRN Reason: Hypoglycemia Protocol Famotidine (Pepcid) 20 mg PO Q12H [facility] Last Admin: 11/12/17 21:01 Dose: 20 mg Furosemide (Lasix) 40 mg IVP DAILY [facility] Last Admin: 11/12/17 09:32 Dose: 40 mg Hydralazine HCl (Apresoline) 50 mg PO Q6H [facility] Last Admin: 11/13/17 05:36 Dose: 50 mg Piperacillin Sod/Tazobactam Sod (Zosyn 2.25 Gm Iv Premix) 2.25 gm in 50 mls @ 100 mls/hr IVPB Q6H [facility] Last Admin: 11/13/17 02:30 Dose: 100 mls/hr Insulin Aspart (Novolog) 0 unit SC ACHS [facility] PRN Reason: Protocol Last Admin: 11/12/17 21:50 Dose: Not Given Insulin Glargine (Lantus) 45 unit SC HS [facility] Last Admin: 11/12/17 21:49 Dose: Not Given Losartan Potassium (Cozaar) 100 mg PO DAILY [facility] Last Admin: 11/12/17 09:33 Dose: 100 mg Metoprolol Tartrate (Lopressor) 50 mg PO BID [facility] Last Admin: 11/12/17 18:06 Dose: 50 mg Yaeva-7-Ipde Ethyl Esters (Lovaza) 2 gm PO BID [facility] Last Admin: 11/12/17 18:06 Dose: 2 gm Rosuvastatin Calcium (Crestor) 5 mg PO HS [facility] Last Admin: 11/12/17 22:12 Dose: 5 mg Temazepam (Restoril) 15 mg PO HS PRN PRN Reason: insomnia - Labs Labs: 11/12/17 07:47 11/12/17 07:47 PT 12.5 SECONDS (9.7-12.2) H 11/02/17 15:50 INR 1.1 11/02/17 15:50 APTT 38 SECONDS (21-34) H 11/02/17 15:50 - Constitutional Appears: Non-toxic, No Acute Distress - Head Exam Head Exam: ATRAUMATIC, NORMOCEPHALIC - Eye Exam Eye Exam: Normal appearance. absent: Nystagmus - ENT Exam ENT Exam: Mucous Membranes Moist - Neck Exam Neck Exam: Full ROM. absent: Tenderness - Respiratory Exam Respiratory Exam: Decreased Breath Sounds. absent: Wheezes - Cardiovascular Exam Cardiovascular Exam: Irregular Rhythm - GI/Abdominal Exam GI & Abdominal Exam: Soft, Normal Bowel Sounds. absent: Tenderness - Extremities Exam Extremities Exam: Full ROM. absent: Joint Swelling, Pedal Edema, Tenderness - Neurological Exam Neurological Exam: Alert, Awake, Normal Gait, Oriented x3 - Psychiatric Exam Psychiatric exam: Normal Affect, Normal Mood - Skin Skin Exam: Intact, Normal Color Assessment and Plan - Assessment and Plan (Free Text) Assessment: Patient with multiple medical problem with history of CAD, history of CABG_ schedued for cardiac cath- today - IDDM2- able to control further with diet along with insulin- further DM control discussed CRI- stable Hypertension stable AFib as above History of ascending Aneurysm 4.6 no surgical plan- BP control plan for discharge accordingly
[2017-11-13] MEDS: (Novolog) Insulin Aspart, Recombinant 100 u/ml 10 ml vial SC SCH ×4 (08:40→22:20)
--- NOTE | 2017-11-13 09:57 | CP.PCM.PN ---
Subjective - Date & Time of Evaluation Date of Evaluation: 11/13/17 Time of Evaluation: 07:30 - Subjective Subjective: The patient seen and examined Lying comfortably in no acute distress No shortness of breath Off BiPAP For cardiac catheter today Consider to discontinue antibiotics Objective - Vital Signs/Intake and Output Vital Signs (last 24 hours): Temp Pulse Resp BP Pulse Ox 97.8 F 59 L 20 133/85 100 11/13/17 07:14 11/13/17 07:14 11/13/17 07:14 11/13/17 07:14 11/13/17 07:14 Intake and Output: 11/13/17 11/13/17 06:59 18:59 Output Total 1700 Balance -1700 - Medications Medications: Current Medications Allopurinol (Zyloprim) 100 mg PO DAILY [facility] Last Admin: 11/12/17 09:31 Dose: 100 mg Amlodipine Besylate (Norvasc) 5 mg PO DAILY [facility] Last Admin: 11/12/17 09:33 Dose: 5 mg Clonidine HCl (Catapres) 0.1 mg PO BID [facility] Last Admin: 11/12/17 18:06 Dose: 0.1 mg Clopidogrel Bisulfate (Plavix) 75 mg PO DAILY [facility] Last Admin: 11/13/17 09:40 Dose: Not Given Dextrose (Dextrose 50% Inj) 0 ml IVP .STAT PRN; Protocol PRN Reason: Hypoglycemia Protocol Famotidine (Pepcid) 20 mg PO Q12H [facility] Last Admin: 11/13/17 08:50 Dose: 20 mg Furosemide (Lasix) 40 mg IVP DAILY [facility] Last Admin: 11/12/17 09:32 Dose: 40 mg Hydralazine HCl (Apresoline) 50 mg PO Q6H [facility] Last Admin: 11/13/17 05:36 Dose: 50 mg Piperacillin Sod/Tazobactam Sod (Zosyn 2.25 Gm Iv Premix) 2.25 gm in 50 mls @ 100 mls/hr IVPB Q6H [facility] Last Admin: 11/13/17 08:50 Dose: 100 mls/hr Insulin Aspart (Novolog) 0 unit SC ACHS [facility] PRN Reason: Protocol Last Admin: 11/13/17 08:40 Dose: Not Given Insulin Glargine (Lantus) 45 unit SC HS [facility] Last Admin: 11/12/17 21:49 Dose: Not Given Losartan Potassium (Cozaar) 100 mg PO DAILY [facility] Last Admin: 11/12/17 09:33 Dose: 100 mg Metoprolol Tartrate (Lopressor) 50 mg PO BID [facility] Last Admin: 11/12/17 18:06 Dose: 50 mg Presy-9-Agie Ethyl Esters (Lovaza) 2 gm PO BID [facility] Last Admin: 11/12/17 18:06 Dose: 2 gm Rosuvastatin Calcium (Crestor) 5 mg PO HS [facility] Last Admin: 11/12/17 22:12 Dose: 5 mg Temazepam (Restoril) 15 mg PO HS PRN PRN Reason: insomnia - Labs Labs: 11/12/17 07:47 11/12/17 07:47 PT 12.5 SECONDS (9.7-12.2) H 11/02/17 15:50 INR 1.1 11/02/17 15:50 APTT 38 SECONDS (21-34) H 11/02/17 15:50 Assessment and Plan (1) Respiratory failure with hypercapnia Status: Acute (2) Pneumonia Status: Acute (3) Influenza A Status: Acute
--- NOTE | 2017-11-13 09:58 | PN ---
DATE: 11/12/2017 FOLLOWUP RENAL CONSULTATION LOCATION: Room 564 bed A. REQUESTED BY: Paola Adams MD REASON FOR FOLLOWUP: Acute renal failure, chronic kidney disease. HISTORY OF PRESENT ILLNESS: Mr. Flowers is a 67-year-old male, moderately built, moderately nourished with past medical history significant for longstanding hypertension, diabetes, coronary artery disease status post CABG, COPD, asthma, CHF, basilar aneurysm, proteinuria, who was admitted with initially cough, shortness of breath and subsequently the patient was found to have influenza and being treated for pneumonia. The patient is feeling much better, not in acute distress. Denies any chest pain or palpitation. Denies any cough. No abdominal pain. No nausea, vomiting or diarrhea. The patient is confused on and off. PHYSICAL EXAMINATION: VITAL SIGNS: As follows, blood pressure 141/84, pulse 84, respirations 20, temperature 97.7, saturation 97%. Height 5 feet 6 inches, weight is 187 pounds. GENERAL: Mr. Flowers is 67-year-old elderly [place] male, well-built, well-nourished, not in acute distress. HEENT: Pupils normal and reactive to light and accommodation. Conjunctivae pink. Sclerae anicteric. Tongue is moist. Trachea is midline. LUNGS: Symmetric on both sides. Bilateral breath sounds present. Clear on auscultation. CVS: [place] at the fifth intercostal space, midclavicular line. S1, S2 audible. No murmur. No gallop. ABDOMEN: Normal in appearance, soft, tympanic. No guarding. No striae. No hepatosplenomegaly. API DEVELOPER: The patient is alert, awake, oriented x 2 to 3. Sensory and motor system is grossly within normal limits. EXTREMITIES: No cyanosis, no clubbing, no edema. MEDICATIONS: Current medications include as follows, hydralazine 50 mg p.o. q.6 hours and clonidine 0.1 mg p.o. b.i.d., losartan 100 mg daily, Crestor 5 mg daily, and Lantus 45 units subcu at bedtime, Lasix 40 mg IV b.i.d. daily, metoprolol 50 mg p.o. b.i.d., omega-3 fatty acids 2 gm p.o. b.i.d., Norvasc 5 mg daily, Pepcid 20 mg IV q.12 hours, and Plavix 75 mg p.o. daily and Restoril 15 mg p.o. at bedtime and Zosyn 2.25 gm IV q.6 hours and allopurinol 100 mg p.o. daily. ASSESSMENT: In summary, Mr. Flowers is a 67-year-old elderly male with hypertension, diabetes, hyperlipidemia, coronary artery disease status post CABG, COPD, asthma, CHF, was admitted with shortness of breath and cough and being treated for influenza and also for the pneumonia left lung with increased BUN and creatinine. 1. Acute renal failure on chronic kidney disease stage 3, renal function is improving gradually, most likely secondary to acute tubular necrosis secondary to pneumonia and sepsis. 2. Hypertension. Blood pressure is much better, continue with his current medication low sodium, low potassium diet. 3. Diabetes. 4. Abnormal serum protein electrophoresis, urine protein electrophoresis from the previous admission. Followup with processing specialist as an outpatient if possible to rule out multiple myeloma versus monoclonal gammopathy of undetermined significance. Thank you for allowing me to participate in your patient's care. The patient is stable from the renal standpoint. Susana Jones MD
[2017-11-13] MEDS: Omega-3-Acid Ethyl Esters 1 GM Cap PO SCH ×2 (10:40→17:52)
--- NOTE | 2017-11-13 18:40 | CP.PCM.PN ---
Subjective - Date & Time of Evaluation Date of Evaluation: 11/13/17 Time of Evaluation: 18:40 - Subjective Subjective: pt is seen and examined, follow up consult is dictated #[id number] Objective - Vital Signs/Intake and Output Vital Signs (last 24 hours): Temp Pulse Resp BP Pulse Ox 97.7 F 68 20 116/60 95 11/13/17 15:59 11/13/17 15:59 11/13/17 15:59 11/13/17 15:59 11/13/17 15:59 Intake and Output: 11/13/17 11/13/17 06:59 18:59 Intake Total 410 Output Total 1700 1000 Balance -1700 -590 - Medications Medications: Current Medications Allopurinol (Zyloprim) 100 mg PO DAILY [facility] Last Admin: 11/13/17 10:40 Dose: 100 mg Amlodipine Besylate (Norvasc) 5 mg PO DAILY [facility] Last Admin: 11/13/17 10:40 Dose: 5 mg Clonidine HCl (Catapres) 0.1 mg PO BID [facility] Last Admin: 11/13/17 17:52 Dose: 0.1 mg Clopidogrel Bisulfate (Plavix) 75 mg PO DAILY [facility] Last Admin: 11/13/17 09:40 Dose: Not Given Dextrose (Dextrose 50% Inj) 0 ml IVP .STAT PRN; Protocol PRN Reason: Hypoglycemia Protocol Last Admin: 11/13/17 12:00 Dose: 25 ml Famotidine (Pepcid) 20 mg PO Q12H [facility] Last Admin: 11/13/17 08:50 Dose: 20 mg Furosemide (Lasix) 40 mg IVP DAILY [facility] Last Admin: 11/13/17 10:40 Dose: 40 mg Hydralazine HCl (Apresoline) 50 mg PO Q6H [facility] Last Admin: 11/13/17 17:52 Dose: 50 mg Piperacillin Sod/Tazobactam (Sod 2.25 gm/ Sodium Chloride) 100 mls @ 100 mls/ hr IV Q6H [facility] Last Admin: 11/13/17 17:58 Dose: 100 mls/hr Insulin Aspart (Novolog) 0 unit SC ACHS [facility] PRN Reason: Protocol Last Admin: 11/13/17 17:55 Dose: Not Given Insulin Glargine (Lantus) 45 unit SC HS [facility] Last Admin: 11/12/17 21:49 Dose: Not Given Losartan Potassium (Cozaar) 100 mg PO DAILY [facility] Last Admin: 11/13/17 10:40 Dose: 100 mg Metoprolol Tartrate (Lopressor) 50 mg PO BID [facility] Last Admin: 11/13/17 17:52 Dose: 50 mg Zhgas-4-Jwrh Ethyl Esters (Lovaza) 2 gm PO BID [facility] Last Admin: 11/13/17 17:52 Dose: 2 gm Rosuvastatin Calcium (Crestor) 5 mg PO HS [facility] Last Admin: 11/12/17 22:12 Dose: 5 mg Temazepam (Restoril) 15 mg PO HS PRN PRN Reason: insomnia - Labs Labs: 11/12/17 07:47 11/12/17 07:47 PT 12.5 SECONDS (9.7-12.2) H 11/02/17 15:50 INR 1.1 11/02/17 15:50 APTT 38 SECONDS (21-34) H 11/02/17 15:50
--- NOTE | 2017-11-13 20:48 | PN ---
DATE: 11/13/2017 SUBJECTIVE: The patient is seen, sitting in chair, he according to the nurse the cardiac cath procedure was canceled today. The patient wants to go home. The patient wants to do it as an outpatient, and the patient has been medically cleared. The patient states that he is feeling much better today. The patient has a bout of hypoglycemia because the patient was n.p.o. for too long and was given regular food. Therefore, his procedure was canceled. The patient is technically stable to go home with his . PHYSICAL EXAMINATION: VITAL SIGNS: Temperature 97.8, pulse rate 59, blood pressure 153/62, respirations 20, and oxygen saturations 100%. REVIEW OF SYSTEM: GENERAL: The patient is alert, verbal, conversing in Tagalog, seen sitting in a chair. He is clinically much improved, seen with his . SKIN: No diaphoresis. HEENT: No headache, no dizziness. NECK: Supple. RESPIRATORY: No dyspnea. CARDIOVASCULAR: No chest pain. GASTROINTESTINAL: He is eating. EXTREMITIES: The patient ambulates slowly. MUSCULOSKELETAL: Feels weak. NEUROLOGIC: Alert and oriented x3. GENITOURINARY: No urinary problems. MENTAL STATUS EXAMINATION: Elderly male of [place] descent, oriented x2, conversing in Tagalog. Mood is dysphoric. Affect is reactive. Speech is spontaneous. Thought process not confused. Thought content, wants to go home. The patient wants to do his cardiac catheterization as an outpatient. No paranoia. 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 He stated no suicidal or homicidal ideations. Attention and memory seem to be fair. Insight and judgment is fair. Impulse control is fair at this time. 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 The patient's congestive heart failure much improved. PLAN AND RECOMMENDATION: The patient is seen. Meds reviewed. Continue present management. Psych tran, the patient is stable to go home with his . The patient to follow up as an outpatient if he wants in my office. The patient came to my office once. He needs some psych followup especially with his delusion of chronic jealousy. Ren Kyle MD [facility] # [id number]
[2017-11-13] MEDS: (Lantus) Insulin Glargine, Recombinant SC SCH (22:10)
[2017-11-14 07:39] LABS: HEMOGLOBIN 13.2 g/dL (12.0-18.0); MEAN CELL VOLUME 88.1 fL (80.0-94.0); MEAN CORPUSCULAR HEMOGLOBIN 28.2 pg (27.0-31.0); MEAN PLATELET VOLUME 9.4 fL (7.2-11.7); RBC 4.69 Mil/uL (4.40-5.90); RED CELL DISTRIBUTION WIDTH 16.4 % (11.5-14.5); WHITE BLOOD COUNT 9.4 K/uL (4.8-10.8)
[2017-11-14 07:43] LABS: ALBUMIN 3.2 g/dL (3.5-5.0); CALCIUM 8.6 mg/dl (8.6-10.4)
[2017-11-14] MEDS: (Novolog) Insulin Aspart, Recombinant 100 u/ml 10 ml vial SC SCH (08:30)
--- NOTE | 2017-11-14 08:54 | CP.PCM.PN ---
Subjective - Date & Time of Evaluation Date of Evaluation: 11/14/17 Time of Evaluation: 08:20 - Subjective Subjective: Patient seenstaff report of unable to do cardiac cath-further disciussion with cardiology- plan of discharge agreed patient became emotionally uncooperative, episode of emotional disturbance as reported , today no other complaints duiscussed home today and follow up with cardio as out patient CO2 noted but currently, patient is stable breathing good Objective - Vital Signs/Intake and Output Vital Signs (last 24 hours): Temp Pulse Resp BP Pulse Ox 97.5 F L 60 20 149/90 100 11/14/17 05:52 11/14/17 05:52 11/14/17 05:52 11/14/17 05:52 11/14/17 05:52 Intake and Output: 11/14/17 11/14/17 06:59 18:59 Output Total 1150 Balance -1150 - Medications Medications: Current Medications Allopurinol (Zyloprim) 100 mg PO DAILY [facility] Last Admin: 11/13/17 10:40 Dose: 100 mg Amlodipine Besylate (Norvasc) 5 mg PO DAILY [facility] Last Admin: 11/13/17 10:40 Dose: 5 mg Clonidine HCl (Catapres) 0.1 mg PO BID [facility] Last Admin: 11/13/17 17:52 Dose: 0.1 mg Clopidogrel Bisulfate (Plavix) 75 mg PO DAILY [facility] Last Admin: 11/13/17 09:40 Dose: Not Given Dextrose (Dextrose 50% Inj) 0 ml IVP .STAT PRN; Protocol PRN Reason: Hypoglycemia Protocol Last Admin: 11/13/17 12:00 Dose: 25 ml Famotidine (Pepcid) 20 mg PO Q12H [facility] Last Admin: 11/13/17 20:22 Dose: 20 mg Furosemide (Lasix) 40 mg IVP DAILY [facility] Last Admin: 11/13/17 10:40 Dose: 40 mg Hydralazine HCl (Apresoline) 50 mg PO Q6H [facility] Last Admin: 11/14/17 06:00 Dose: 50 mg Piperacillin Sod/Tazobactam (Sod 2.25 gm/ Sodium Chloride) 100 mls @ 100 mls/ hr IV Q6H [facility] Last Admin: 11/14/17 05:55 Dose: 100 mls/hr Insulin Aspart (Novolog) 0 unit SC ACHS [facility] PRN Reason: Protocol Last Admin: 11/13/17 22:20 Dose: Not Given Insulin Glargine (Lantus) 45 unit SC HS [facility] Last Admin: 11/13/17 22:10 Dose: 15 units Losartan Potassium (Cozaar) 100 mg PO DAILY [facility] Last Admin: 11/13/17 10:40 Dose: 100 mg Metoprolol Tartrate (Lopressor) 50 mg PO BID [facility] Last Admin: 11/13/17 17:52 Dose: 50 mg [id number] Ethyl Esters (Lovaza) 2 gm PO BID [facility] Last Admin: 11/13/17 17:52 Dose: 2 gm Rosuvastatin Calcium (Crestor) 5 mg PO HS [facility] Last Admin: 11/13/17 22:10 Dose: 5 mg Temazepam (Restoril) 15 mg PO HS PRN PRN Reason: insomnia - Labs Labs: 11/14/17 07:06 11/14/17 07:06 PT 12.5 SECONDS (9.7-12.2) H 11/02/17 15:50 INR 1.1 11/02/17 15:50 APTT 38 SECONDS (21-34) H 11/02/17 15:50 - Constitutional Appears: Non-toxic (this am- is cooperative, no respiratory symptoms ) - Head Exam Head Exam: ATRAUMATIC, NORMOCEPHALIC - Eye Exam Eye Exam: Normal appearance - ENT Exam ENT Exam: Mucous Membranes Moist - Neck Exam Neck Exam: Full ROM. absent: Tenderness - Respiratory Exam Respiratory Exam: Decreased Breath Sounds, Clear to Ausculation Bilateral - Cardiovascular Exam Cardiovascular Exam: Irregular Rhythm - GI/Abdominal Exam GI & Abdominal Exam: Soft, Normal Bowel Sounds. absent: Tenderness - Extremities Exam Extremities Exam: Normal Inspection. 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
[2017-11-14 09:11] VITALS: BP 152/82
[2017-11-14] MEDS: Omega-3-Acid Ethyl Esters 1 GM Cap PO SCH (09:12)
[2017-11-14 09:17] VITALS: PULSE 77; RESP 18; TEMP 98.2; O2SAT 96
--- NOTE | 2017-11-14 14:56 | CP.PCM.DIS ---
Provider - Provider Date of Admission: 11/02/17 17:20 Attending physician: Paola Hurt MD Time Spent in preparation of Discharge (in minutes): 30 Hospital Course - Lab Results Lab Results: Micro Results 11/03/17 18:50 Blood Blood Culture - Final NO GROWTH AFTER 5 DAYS 11/03/17 18:50 Blood Gram Stain - Final TEST NOT PERFORMED 11/03/17 18:50 Blood Blood Culture - Final NO GROWTH AFTER 5 DAYS 11/03/17 18:50 Blood Gram Stain - Final TEST NOT PERFORMED 11/02/17 18:00 Blood Blood Culture - Final NO GROWTH AFTER 5 DAYS 11/02/17 18:00 Blood Gram Stain - Final TEST NOT PERFORMED 11/06/17 14:04 Naris MRSA Culture - Final MRSA NOT DETECTED 11/05/17 Unknown Nose MRSA Culture (Admit) - Final MRSA NOT DETECTED 11/02/17 15:35 Blood S.aureus & Coag-Neg Staph PNA FISH - Final 11/02/17 15:35 Blood Blood Culture - Final Coagulase Neg Staphylococcus 11/02/17 15:35 Blood Gram Stain - Final Most Recent Lab Values WBC 9.4 K/uL (4.8-10.8) 11/14/17 07:06 RBC 4.69 Mil/uL (4.40-5.90) 11/14/17 07:06 Hgb 13.2 g/dL (12.0-18.0) 11/14/17 07:06 Hct 41.3 % (35.0-51.0) 11/14/17 07:06 MCV 88.1 fL (80.0-94.0) 11/14/17 07:06 MCH 28.2 pg (27.0-31.0) 11/14/17 07:06 MCHC 32.0 g/dL (33.0-37.0) L 11/14/17 07:06 RDW 16.4 % (11.5-14.5) H 11/14/17 07:06 Plt Count 159 K/uL (130-400) 11/14/17 07:06 MPV 9.4 fL (7.2-11.7) 11/14/17 07:06 Neut % (Auto) 79.4 % (50.0-75.0) H 11/12/17 07:47 Lymph % (Auto) 11.6 % (20.0-40.0) L 11/12/17 07:47 [place] % (Auto) 4.9 % (0.0-10.0) 11/12/17 07:47 Eos % (Auto) 4.0 % (0.0-4.0) 11/12/17 07:47 Baso % (Auto) 0.1 % (0.0-2.0) 11/12/17 07:47 Neut # (Auto) 8.1 K/uL (1.8-7.0) H 11/12/17 07:47 Lymph # (Auto) 1.2 K/uL (1.0-4.3) 11/12/17 07:47 [place] # (Auto) 0.5 K/uL (0.0-0.8) 11/12/17 07:47 Eos # (Auto) 0.4 K/uL (0.0-0.7) 11/12/17 07:47 Baso # (Auto) 0.0 K/uL (0.0-0.2) 11/12/17 07:47 Neutrophils % (Manual) 93 % (50-75) H 11/11/17 08:23 Band Neutrophils % 1 % (0-2) 11/09/17 11:48 Lymphocytes % (Manual) 6 % (20-40) L 11/11/17 08:23 Monocytes % (Manual) 1 % (0-10) 11/11/17 08:23 Platelet Estimate Normal (NORMAL) 11/11/17 08:23 Large Platelets Present 11/07/17 08:13 Polychromasia Slight 11/04/17 07:11 Hypochromasia (manual) Slight 11/11/17 08:23 Poikilocytosis (manual Slight 11/10/17 07:16 Basophilic Stippling Slight 11/09/17 11:48 Anisocytosis (manual) Slight 11/11/17 08:23 Microcytosis (manual) Slight 11/10/17 07:16 Ovalocytes Slight 11/10/17 07:16 PT 12.5 SECONDS (9.7-12.2) H 11/02/17 15:50 INR 1.1 11/02/17 15:50 APTT 38 SECONDS (21-34) H 11/02/17 15:50 Puncture Site Rr 11/05/17 20:30 pCO2 50 mm/Hg (35-45) H 11/05/17 20:30 pO2 87 mm/Hg (80-100) 11/05/17 20:30 HCO3 30.8 mmol/L (21-28) H 11/05/17 20:30 ABG pH 7.43 (7.35-7.45) 11/05/17 20:30 ABG Total CO2 34.7 mmol/L (22-28) H 11/05/17 20:30 ABG O2 Saturation 98.0 % (95-98) 11/05/17 20:30 ABG Base Excess 7.5 mmol/L (-2.0-3.0) H 11/05/17 20:30 ABG Hemoglobin 11.3 g/dL (11.7-17.4) L 11/04/17 14: ABG Carboxyhemoglobin 2.2 % (0.5-1.5) H 11/04/17 14: POC ABG HHb (Measured) 4.3 % (0.0-5.0) 11/04/17 14: ABG Methemoglobin 1.3 % (0.0-3.0) 11/04/17 14: Luis Carlos Test Unable 11/05/17 20: ABG Potassium 4.6 mmol/L (3.6-5.2) 11/05/17 20:30 A-a O2 Difference 64.0 mm/Hg 11/05/17 20:30 Respiratory Index 0.7 11/05/17 20:30 Hgb O2 Saturation 92.2 % (95.0-98.0) L 11/04/17: Sodium 144.0 mmol/l (132-148) 11/05/17 20:30 Chloride 110.0 mmol/L (98-107) H 11/05/17 20:30 Glucose 194 mg/dl (75-110) H 11/05/17 20:30 Lactate 0.8 mmol/L (0.7-2.1) 11/05/17 20:30 Liter Flow 2.0 11/04/17 14: Vent Mode Bipap 11/05/17 20:30 FiO2 30.0 % 11/05/17 20:30 Inspiratory BiPAP 15 11/05/17 20:30 Expiratory BiPAP 5 11/05/17 20:30 Crit Value Called To Dr monreal 11/05/17 09:55 Crit Value Called By Medardo mclean rv service technician 11/05/17 09:55 Crit Value Read Back Y 11/05/17 09:55 Blood Gas Notified Time 959 11/05/17 09:55 Sodium 135 mmol/L (132-148) 11/14/17 07:06 Potassium 3.5 mmol/L (3.6-5.2) L 11/14/17 07:06 Chloride 91 mmol/L (98-107) L 11/14/17 07:06 Carbon Dioxide 40 mmol/L (22-30) H* 11/14/17 07:06 Anion Gap 8 (10-20) L 11/14/17 07:06 BUN 39 mg/dL (9-20) H 11/14/17 07:06 Creatinine 2.2 mg/dL (0.8-1.5) H 11/14/17 07:06 Est GFR ( Amer) 37 11/14/17 07:06 Est GFR (Non-Af Amer) 30 11/14/17 07:06 POC Glucose (mg/dL) 202 mg/dL (65-110) H 11/14/17 11:08 Random Glucose 159 mg/dL (75-110) H 11/14/17 07:06 Calcium 8.6 mg/dl (8.6-10.4) 11/14/17 07:06 Phosphorus 2.8 mg/dL (2.5-4.5) 11/14/17 07:06 Magnesium 2.9 mg/dL (1.6-2.3) H 11/07/17 08:13 Total Bilirubin 0.7 mg/dL (0.2-1.3) 11/14/17 07:06 AST 15 U/L (17-59) L 11/14/17 07:06 ALT 24 U/L (21-72) 11/14/17 07:06 Alkaline Phosphatase 51 U/L (38-126) 11/14/17 07:06 Troponin I 0.0890 ng/mL (0.00-0.120) 11/02/17 15:50 NT-Pro-B Natriuret Pep 2630 pg/mL (0-900) H 11/02/17 15:50 Total Protein 6.3 g/dL (6.3-8.3) 11/14/17 07:06 Albumin 3.2 g/dL (3.5-5.0) L D 11/14/17 07:06 Globulin 3.1 gm/dL (2.2-3.9) 11/14/17 07:06 Albumin/Globulin Ratio 1.0 (1.0-2.1) 11/14/17 07:06 Procalcitonin 0.05 NG/ML (0.19-0.49) L 11/05/17 07:38 Arterial Blood Potassium 4.6 mmol/L (3.6-5.2) 11/05/17 20:30 Urine Color Straw (YELLOW) 11/02/17 16:50 Urine Clarity Clear (Clear) 11/02/17 16:50 Urine pH 5.0 (5.0-8.0) 11/02/17 16:50 Ur Specific [place] 1.011 (1.003-1.030) 11/02/17 16:50 Urine Protein 3+ mg/dL (NEGATIVE) H 11/02/17 16:50 Urine Glucose (UA) 1+ mg/dL (Normal) H 11/02/17 16:50 Urine Ketones Negative mg/dL (NEGATIVE) 11/02/17 16:50 Urine Blood Negative (NEGATIVE) 11/02/17 16:50 Urine Nitrate Negative (NEGATIVE) 11/02/17 16:50 Urine Bilirubin Negative (NEGATIVE) 11/02/17 16:50 Urine Urobilinogen Normal mg/dL (0.2-1.0) 11/02/17 16:50 Ur Leukocyte Esterase Neg Edy/uL (Negative) 11/02/17 16:50 Urine WBC (Auto) < 1 /hpf (0-5) 11/02/17 16:50 Urine RBC (Auto) 1 /hpf (0-3) 11/02/17 16:50 Urine Bacteria Rare (<OCC) 11/02/17 16:50 Influenza Typ A,B (EIA) Pos for influenza a (NEGATIVE) H 11/02/17 16:51 Ur L.pneumophila Ag Negative (NEGATIVE) 11/04/17 21:53 Mycoplasma pneumon IgM Negative (NEGATIVE) 11/04/17 21:53 - Hospital Course Hospital Course: patient admitted for CHF fluid overload COPD pneumonia =with episode of respiratory faili=ure -placed on BIPAP- to CU but no intubation needed- improved with antibiotic had episode of delusional disorder agitation- given sedatives and found to be very sensitive to those medications (was sleeping longer)- anti agitation meds were discontinued- patient continue to improved- then plan for cardiac cath but did no pushtruoug- patient imroved0- w=sent home and will do cath as out patient Discharge Exam - Head Exam Head Exam: ATRAUMATIC, NORMOCEPHALIC - Eye Exam Eye Exam: Normal appearance. absent: Nystagmus - ENT Exam ENT Exam: Mucous Membranes Moist - Neck Exam Neck exam: Full Rom - Respiratory Exam Respiratory Exam: Decreased Breath Sounds, Clear to PA & Lateral, NORMAL BREATHING PATTERN - Cardiovascular Exam Cardiovascular Exam: REGULAR RHYTHM - GI/Abdominal Exam GI & Abdominal Exam: Normal Bowel Sounds, Soft. absent: Tenderness - Neurological Exam Neurological exam: Alert, Normal Gait, Oriented x3, Reflexes Normal - Psychiatric Exam Psychiatric exam: Normal Affect, Normal Mood - Skin Skin Exam: Intact, Normal Color Discharge Plan - Follow Up Plan Condition: GUARDED Disposition: HOME/ ROUTINE Instructions: Pneumonia in Adults, Flu, Type 2 Diabetes, Heart Failure, Adult, Heart Healthy Diet Additional Instructions: As per Dr. Hurt , patient's needs to mixing picker tender all medications prescription in her clinic. Follow up with Dr. Butler in 1 week . Your list of home medications was faxed to Dr. Hurt's office. Seek emergency treatment if SOB, chest pain or fever. Referrals: Paola Hurt MD [Medical Doctor] -
--- NOTE | 2017-11-14 21:43 | CP.PCM.PN ---
Subjective - Date & Time of Evaluation Date of Evaluation: 11/14/17 Time of Evaluation: 14:15 - Subjective Subjective: pt is seen and examined, follow up consult is dictated #[id number] Objective - Vital Signs/Intake and Output Vital Signs (last 24 hours): Temp Pulse Resp BP Pulse Ox 98.2 F 77 18 152/82 H 96 11/14/17 09:10 11/14/17 09:10 11/14/17 09:10 11/14/17 09:10 11/14/17 09:10 - Labs Labs: 11/14/17 07:06 11/14/17 07:06 PT 12.5 SECONDS (9.7-12.2) H 11/02/17 15:50 INR 1.1 11/02/17 15:50 APTT 38 SECONDS (21-34) H 11/02/17 15:50
--- NOTE | 2017-11-15 03:38 | PN ---
DATE: 11/14/2017 LOCATION: The patient is located in room 558, bed A. REQUESTED BY: Dr. Paola Adams REASON FOR RENAL CONSULTATION: Acute renal failure, chronic kidney disease, stage 3. SUBJECTIVE: Mr. Flowers is a 67-year-old elderly [place] male with a past medical history significant for longstanding hypertension, diabetes, hyperlipidemia, coronary artery disease, status post CABG, COPD, CHF, basilar aneurysm, chronic kidney disease, stage 3 with a baseline creatinine about 1.8 to 1.9, was admitted initially with cough, shortness of breath, and fever. The patient was found to have influenza positive, and also found to have a left lung pneumonia. The patient was treated with Tamiflu and also IV antibiotics. The patient is feeling much better, not in acute distress. Denies any headache, dizziness. Denies any chest pain or palpitations. Denies any fever or cough. No abdominal pain. No nausea, no vomiting, no diarrhea. PHYSICAL EXAMINATION: VITAL SIGNS: As follows: Blood pressure 152/82, pulse 77, respirations 18, temperature 98.2, saturation 96%. Height 5 feet 6 inches, weight is 187 pounds. GENERAL: Mr. Flowers is a 67-year-old male, moderately built, moderately nourished, not in acute distress. HEENT: Pupils normal and equal to light and accommodation. Conjunctivae pink. Sclerae anicteric. Tongue is moist and trachea is midline. LUNGS: Symmetric on both sides. Bilateral breath sounds present. Clear on auscultation. CVS: [place] at the fifth intercostal space, in midclavicular line. S1, S2 audible. No murmur, no gallop. ABDOMEN: Normal in appearance, soft, tympanic. No guarding. No guarding. No hepatosplenomegaly. COMPUTER HELP DESK REPRESENTATIVE: The patient is alert, awake, oriented x2 to 3. Sensory and motor system is grossly within normal limits. EXTREMITIES: No cyanosis, no clubbing, no edema. CURRENT MEDICATIONS: Include as follows: Diovan 320 mg p.o. daily, omega-3 fatty acid 2 gm p.o. b.i.d., metoprolol 50 mg p.o. daily, and Plavix 75 mg daily, allopurinol 100 mg p.o. b.i.d., Metformin 500 mg p.o. b.i.d., Lantus, glimepiride, and atorvastatin. LAB DATA: Includes as follows: 11/14/2017, WBC 9.4, hemoglobin 13.2, hematocrit is 41.3, platelets 159. Sodium 135, potassium 3.5, chloride 91, CO2 40, BUN 39, creatinine 2.2, glucose is 159, calcium 8.6, phosphorus 2.8, magnesium 0, total bili 0.7, AST 15, ALT 24, alkaline phosphatase 51, total protein 6.3, albumin is 3.2, and Accu-Cheks 179 and 202. ASSESSMENT AND PLAN: In summary, Mr. Flowers is a 67-year-old male with hypertension, diabetes, chronic kidney disease, and pneumonia, with increased BUN and creatinine. 1. Acute renal failure on chronic kidney disease, most likely secondary to acute tubular necrosis, secondary to sepsis, and secondary to pneumonia. Renal function is slowly improving. 2. Hypertension. Blood pressure is stable. Continue his current medications. 3. Pneumonia. Continue antibiotics as per Dr. Adams. Follow up chest x-ray as an outpatient. Follow up with fleshing machine operator as an outpatient to rule out . Positive UPEP, SPEP on the previous admission. The patient can be followed as an outpatient in the office for CKD. Case discussed with Ian Arias MD in rounds for possible cardiac cath as an outpatient. We will follow with you. Thank you for allowing me to participate in your patient's care. Susana Jones MD cc:
--- NOTE | 2017-11-16 10:15 | PN ---
FOLLOWUP RENAL CONSULTATION DATE: 11/13/2017 LOCATION: The patient is located in room 558, bed A. REQUESTED BY: Paola Adams MD REASON FOR FOLLOWUP: Acute renal failure, chronic kidney disease. SUBJECTIVE: Mr. Tirado is a 67-year-old elderly very pleasant [place]er male with history of longstanding hypertension, diabetes, COPD, CHF, coronary artery disease, status post CABG, bibasilar aneurysm, CKD-3, proteinuria, who was admitted with fever, cough, shortness of breath and found to have a pneumonia and also positive for influenza. The patient was treated for influenza with Tamiflu and also on IV antibiotics. The patient is not in acute distress, resting comfortably. No chest pain. No palpitation. No fever. No cough. No abdominal pain. No nausea, vomiting, or diarrhea. The patient was initially scheduled for cardiac catheterization today and subsequently it was changed status post hypoglycemic episode this morning. PHYSICAL EXAMINATION: VITAL SIGNS: As follows, blood pressure 116/60, pulse 68, saturation 95%, temperature 97.7. Height 5 feet 6 inches and weight is 187 pounds. GENERAL: Mr. Tirado is a 67-year-old elderly male, moderately built, moderately nourished, not in distress. HEENT: Pupils normal and reactive to light and accommodation. Conjunctivae pink. Sclerae anicteric. Tongue is moist. Trachea is midline. LUNGS: Symmetric on both sides. Bilateral breath sounds present. No crackles. CVS: [place] at the fifth intercostal space, midclavicular line. S1 and S2 audible. No murmur or gallop. ABDOMEN: Normal in appearance, soft and tympanic. No guarding. No rigidity. No hepatosplenomegaly. 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 Sensory and motor system is grossly within normal limits. EXTREMITIES: No cyanosis. No clubbing. No edema. MEDICATIONS: Include as follows; hydralazine 50 mg p.o. q.6 hours, clonidine 0.1 mg p.o. b.i.d., Cozaar 100 mg p.o. daily, Crestor 5 mg at bedtime, Lantus 45 units subcutaneous at bedtime, Lasix 40 mg IV daily, metoprolol 50 mg p.o. b.i.d., omega-3 fatty acid 2 g p.o. b.i.d., Norvasc 5 mg p.o. daily, NovoLog for sliding scale, Pepcid 20 mg p.o. q.12 hours, Zosyn 2.25 g q.6 hours, Plavix 75 mg p.o. daily, Restoril 50 mg p.o. at bedtime and allopurinol 100 mg p.o. daily. LABORATORY DATA: Include as follows no new labs available for renal function and his Accu-Cheks 163, 60, 134, 226. As of 11/11/2017, H and H are 11.9/36.9. BUN and creatinine 50/2.2 and potassium 4.3. ASSESSMENT AND PLAN: In summary, Mr. Tirado is a 67-year-old obese elderly [place] male with hypertension, diabetes, coronary artery disease, status post coronary artery bypass graft, basilar aneurysm, chronic kidney disease with proteinuria, who was admitted with fever, cough, shortness of breath with a baseline creatinine about 1.8, subsequently his creatinine raised to 3.0 in the hospital. 1. Acute renal failure, chronic kidney disease, stage 3. Most likely secondary to diabetic nephropathy, cannot rule out underlying monoclonal gammopathy of undetermined significance or chronic glomerulonephritis. 2. Pneumonia. 3. Hypertension. Blood pressure stable. Continue his current medications. Followup with Cardiology for cardiac catheterization scheduling. Thank you for allowing me to participate in your patient's care. Susana Jones MD
== END 2017-11-14 11:45 | disposition home or self-care (01) | DRG 871 ==
LOC: C.ER 14:43 → C.9E 17:20 → C.5S 19:58 → C.9I 11-05 13:15 → C.5S 11-06 16:32
PROVIDERS: ADMIT Internal Medicine; ATTEND Internal Medicine
PROC: 5A09557 Assistance with Respiratory Ventilation, Greater than 96 Consecutive Hours, Continuous Positive Airway Pressure (ICD-10-PCS; principal; 2017-11-02)
PROC: 0T9B70Z Drainage of Bladder with Drainage Device, Via Natural or Artificial Opening (ICD-10-PCS; 2017-11-06)
DX: A41.9 Sepsis, unspecified organism (principal); J96.22 Acute and chronic respiratory failure with hypercapnia; J96.21 Acute and chronic respiratory failure with hypoxia; N17.0 Acute kidney failure with tubular necrosis; I50.21 Acute systolic (congestive) heart failure; G93.41 Metabolic encephalopathy; I28.1 Aneurysm of pulmonary artery; I13.0 Hypertensive heart and chronic kidney disease with heart failure and stage 1 through stage 4 chronic kidney disease, or unspecified chronic kidney disease; J11.00 Influenza due to unidentified influenza virus with unspecified type of pneumonia; J44.0 Chronic obstructive pulmonary disease with (acute) lower respiratory infection; J44.1 Chronic obstructive pulmonary disease with (acute) exacerbation; I45.2 Bifascicular block; G81.91 Hemiplegia, unspecified affecting right dominant side; E87.2 Acidosis; I67.1 Cerebral aneurysm, nonruptured; E11.21 Type 2 diabetes mellitus with diabetic nephropathy; E11.22 Type 2 diabetes mellitus with diabetic chronic kidney disease; E11.65 Type 2 diabetes mellitus with hyperglycemia; E66.9 Obesity, unspecified; Z68.30 Body mass index [BMI] 30.0-30.9, adult; E78.00 Pure hypercholesterolemia, unspecified; N18.3 Chronic kidney disease, stage 3 (moderate); I25.10 Atherosclerotic heart disease of native coronary artery without angina pectoris; Z95.1 Presence of aortocoronary bypass graft; I48.91 Unspecified atrial fibrillation; M10.9 Gout, unspecified; F22 Delusional disorders; Z79.4 Long term (current) use of insulin; Z79.82 Long term (current) use of aspirin; Z79.02 Long term (current) use of antithrombotics/antiplatelets; Z79.84 Long term (current) use of oral hypoglycemic drugs; Z79.899 Other long term (current) drug therapy; Z86.73 Personal history of transient ischemic attack (TIA), and cerebral infarction without residual deficits; Z87.891 Personal history of nicotine dependence; F41.9 Anxiety disorder, unspecified; E11.40 Type 2 diabetes mellitus with diabetic neuropathy, unspecified; K80.20 Calculus of gallbladder without cholecystitis without obstruction; D64.9 Anemia, unspecified; I71.2 Thoracic aortic aneurysm, without rupture; Z82.49 Family history of ischemic heart disease and other diseases of the circulatory system; R45.1 Restlessness and agitation; E11.649 Type 2 diabetes mellitus with hypoglycemia without coma

== ENCOUNTER 2017-11-27 07:06 | Inpatient (IN) | payer MEDICARE ==
[2017-11-25 08:28] VITALS: BMI 29.8
[2017-11-27] MEDS ORDERED: Dextrose 50% SYRINGE Inj (50 ml) ONE ×2 (08:04→09:57)
[2017-11-27] MEDS ORDERED: Dextrose 50% SYRINGE Inj (50 ml) IV STA ×2 (08:06→12:30)
[2017-11-27 08:42] LABS: CALCIUM 8.3 mg/dl (8.6-10.4)
[2017-11-27] MEDS ORDERED: Verapamil 2 ML ONE (10:41)
[2017-11-27] MEDS ORDERED: Midazolam 2 MG/2 ML VIAL ONE (10:42)
[2017-11-27] MEDS ORDERED: Iodixanol 320 MG/ML 200 ML BOTTLE IV ONE (10:43)
[2017-11-27] MEDS ORDERED: Lidocaine 2% Inj (20ml) ONE (11:03)
[2017-11-27] MEDS ORDERED: Iodixanol 320 MG/ML 100 ML BOTTLE IV ONE (11:10)
--- NOTE | 2017-11-27 12:20 | CP.PCM.CON ---
History of Present Illness - History of Present Illness History of Present Illness: Patient s/p cath CAD for medical management only for now Hypoglycemia this am CKD s/p Cath Admit to Dr. Zendejas Nephrology consult: Dr. Jones Past Patient History - Infectious Disease Hx of Infectious Diseases: None - Past Medical History & Family History Past Medical History?: Yes - Past Social History Smoking Status: Former Smoker - CARDIAC Hx Cardiac Disorders: Yes Hx Congestive Heart Failure: Yes Hx Hypercholesterolemia: Yes Hx Hypertension: Yes Hx Peripheral Edema: Yes - PULMONARY Hx Respiratory Disorders: Yes Hx Chronic Obstructive Pulmonary Disease (COPD): Yes Hx Pneumonia: Yes Other/Comment: RESPIRATORY FAILURE. INTUBATED JUNE 2017 - NEUROLOGICAL Hx Neurological Disorder: No Other/Comment: stroke 2011 - HEENT Hx HEENT Problems: No - RENAL Other/Comment: CRI - ENDOCRINE/METABOLIC Hx Endocrine Disorders: Yes Hx Diabetes Mellitus Type 2: Yes - HEMATOLOGICAL/ONCOLOGICAL Hx Blood Disorders: No - INTEGUMENTARY Hx Dermatological Problems: No - MUSCULOSKELETAL/RHEUMATOLOGICAL Hx Falls: Yes - GASTROINTESTINAL Hx Gastrointestinal Disorders: No - GENITOURINARY/GYNECOLOGICAL Hx Genitourinary Disorders: No - PSYCHIATRIC Hx Psychophysiologic Disorder: No Hx Substance Use: No - SURGICAL HISTORY Other/Comment: triple by pass 2005 - ANESTHESIA Hx Anesthesia: Yes Hx Anesthesia Reactions: No Hx Malignant Hyperthermia: No Meds Allergies/Adverse Reactions: Allergies Allergy/AdvReac Type Severity Reaction Status Date / Time No Known Allergies Allergy Verified 07/02/17 14:39 - Medications Medications: Current Medications Acetaminophen (Tylenol 325mg Tab) 650 mg PO Q6 PRN PRN Reason: Pain, Mild (1-3) Allopurinol (Zyloprim) 100 mg PO BID [facility] Amlodipine Besylate (Norvasc) 10 mg PO DAILY [facility] Clopidogrel Bisulfate (Plavix) 75 mg PO DAILY [facility] Docusate Sodium (Colace) 100 mg PO BID PRN PRN Reason: Constipation Famotidine (Pepcid) 20 mg PO BID [facility] Fenofibrate (Tricor) 145 mg PO QPM [facility] Heparin Sodium (Porcine) (Heparin) 5,000 units SC Q8 [facility] Hydralazine HCl (Apresoline) 50 mg PO TID [facility] Dextrose/Sodium Chloride (Dextrose 5%/0.45% Ns 1000 Ml) 1,000 mls @ 70 mls/hr IV .[id number] [facility] Stop: 11/28/17 23:59 Metoprolol Tartrate (Lopressor) 25 mg PO BID [facility] Rosuvastatin Calcium (Crestor) 10 mg PO HS [facility] Results - Labs Result Diagrams: 11/27/17 08:12 Labs: Laboratory Results - last 24 hr 11/27/17 11/27/17 11/27/17 07:59 08:12 08:29 Sodium 143 Potassium 4.8 Chloride 110 H Carbon Dioxide 23 Anion Gap 15 BUN 35 H Creatinine 2.0 H Est GFR ( Amer) 41 Est GFR (Non-Af Amer) 34 POC Glucose (mg/dL) 22 L* 136 H Random Glucose 27 L* D Calcium 8.3 L 11/27/17 11/27/17 09:52 10:09 Sodium Potassium Chloride Carbon Dioxide Anion Gap BUN Creatinine Est GFR ( Amer) Est GFR (Non-Af Amer) POC Glucose (mg/dL) 64 L 180 H Random Glucose Calcium
[2017-11-27] MEDS: Dextrose 5%/0.45% NS 1,000 ML IV SCH (12:25)
--- NOTE | 2017-11-27 17:00 | CP.PCM.CON ---
History of Present Illness - History of Present Illness History of Present Illness: pt is seen and examined, full consult is dictated #[id number] Past Patient History - Infectious Disease Hx of Infectious Diseases: None - Past Medical History & Family History Past Medical History?: Yes - Past Social History Smoking Status: Former Smoker - CARDIAC Hx Cardiac Disorders: Yes Hx Congestive Heart Failure: Yes Hx Hypercholesterolemia: Yes Hx Hypertension: Yes Hx Peripheral Edema: Yes - PULMONARY Hx Respiratory Disorders: Yes Hx Chronic Obstructive Pulmonary Disease (COPD): Yes Hx Pneumonia: Yes Other/Comment: RESPIRATORY FAILURE. INTUBATED JUNE 2017 - NEUROLOGICAL Hx Neurological Disorder: No Other/Comment: stroke 2011 - HEENT Hx HEENT Problems: No - RENAL Other/Comment: CRI - ENDOCRINE/METABOLIC Hx Endocrine Disorders: Yes Hx Diabetes Mellitus Type 2: Yes - HEMATOLOGICAL/ONCOLOGICAL Hx Blood Disorders: No - INTEGUMENTARY Hx Dermatological Problems: No - MUSCULOSKELETAL/RHEUMATOLOGICAL Hx Falls: Yes - GASTROINTESTINAL Hx Gastrointestinal Disorders: No - GENITOURINARY/GYNECOLOGICAL Hx Genitourinary Disorders: No - PSYCHIATRIC Hx Psychophysiologic Disorder: No Hx Substance Use: No - SURGICAL HISTORY Other/Comment: triple by pass 2005 - ANESTHESIA Hx Anesthesia: Yes Hx Anesthesia Reactions: No Hx Malignant Hyperthermia: No Meds Allergies/Adverse Reactions: Allergies Allergy/AdvReac Type Severity Reaction Status Date / Time No Known Allergies Allergy Verified 07/02/17 14:39 - Medications Medications: Current Medications Acetaminophen (Tylenol 325mg Tab) 650 mg PO Q6 PRN PRN Reason: Pain, Mild (1-3) Allopurinol (Zyloprim) 100 mg PO BID [facility] Amlodipine Besylate (Norvasc) 10 mg PO DAILY [facility] Clopidogrel Bisulfate (Plavix) 75 mg PO DAILY [facility] Docusate Sodium (Colace) 100 mg PO BID PRN PRN Reason: Constipation Famotidine (Pepcid) 20 mg PO BID [facility] Fenofibrate (Tricor) 145 mg PO QPM [facility] Heparin Sodium (Porcine) (Heparin) 5,000 units SC Q8 [facility] Hydralazine HCl (Apresoline) 50 mg PO TID [facility] Dextrose/Sodium Chloride (Dextrose 5%/0.45% Ns 1000 Ml) 1,000 mls @ 70 mls/hr IV .[id number] [facility] Stop: 11/28/17 23:59 Last Admin: 11/27/17 12:25 Dose: 70 mls/hr Metoprolol Tartrate (Lopressor) 25 mg PO BID [facility] Rosuvastatin Calcium (Crestor) 10 mg PO HS [facility] Results - Vital Signs Recent Vital Signs: Last Vital Signs Temp 97.7 F 11/27/17 15:40 Pulse 77 11/27/17 15:40 Resp 18 11/27/17 15:40 BP 131/76 11/27/17 15:40 Pulse Ox 98 11/27/17 15:40 - Labs Result Diagrams: 11/27/17 08:12 Labs: Laboratory Results - last 24 hr 11/27/17 11/27/17 11/27/17 07:59 08:12 08:29 Sodium 143 Potassium 4.8 Chloride 110 H Carbon Dioxide 23 Anion Gap 15 BUN 35 H Creatinine 2.0 H Est GFR ( Amer) 41 Est GFR (Non-Af Amer) 34 POC Glucose (mg/dL) 22 L* 136 H Random Glucose 27 L* D Calcium 8.3 L 11/27/17 11/27/17 11/27/17 09:52 10:09 12:26 Sodium Potassium Chloride Carbon Dioxide Anion Gap BUN Creatinine Est GFR ( Amer) Est GFR (Non-Af Amer) POC Glucose (mg/dL) 64 L 180 H 31 L* Random Glucose Calcium 11/27/17 13:03 Sodium Potassium Chloride Carbon Dioxide Anion Gap BUN Creatinine Est GFR ( Amer) Est GFR (Non-Af Amer) POC Glucose (mg/dL) 137 H Random Glucose Calcium
[2017-11-28] MEDS: Dextrose 5%/0.45% NS 1,000 ML IV SCH ×3 (01:06→16:30)
[2017-11-28] MEDS ORDERED: Albuterol-Ipratrop 3 mg / 0.5 (3 ml) UD INH STA (01:47)
[2017-11-28 04:30] VITALS: RESP 20
[2017-11-28 06:14] LABS: BASO % 0.3 % (0.0-2.0); EOS # 0.1 K/uL (0.0-0.7); EOS % 2.3 % (0.0-4.0); HEMOGLOBIN 11.4 g/dL (12.0-18.0); LYMPH % 17.1 % (20.0-40.0); MEAN CORPUSCULAR HEMOGLOBIN 28.3 pg (27.0-31.0); MEAN CORPUSCULAR HGB CONC 31.9 g/dL (33.0-37.0); MEAN PLATELET VOLUME 8.5 fL (7.2-11.7); MONO # 0.3 K/uL (0.0-0.8); MONO % 5.2 % (0.0-10.0); NEUT # 4.3 K/uL (1.8-7.0); NEUT % 75.1 % (50.0-75.0); RBC 4.02 Mil/uL (4.40-5.90); RED CELL DISTRIBUTION WIDTH 17.9 % (11.5-14.5); WHITE BLOOD COUNT 5.8 K/uL (4.8-10.8)
[2017-11-28 06:33] LABS: CALCIUM 8.5 mg/dl (8.6-10.4)
--- NOTE | 2017-11-28 10:52 | CON ---
DATE: LOCATION: The patient is located in room 660, bed B. REQUESTED BY: Paola Adams MD REASON FOR FOLLOWUP AND CONSULTATION: Chronic kidney disease, hypokalemia, status post cardiac cath. HISTORY OF PRESENT ILLNESS: Mr. Lionel harley is a 67-year-old elderly [place] male with a past medical history significant for longstanding hypertension, diabetes, hyperlipidemia, coronary artery disease, proteinuria, anemia, secondary hyperparathyroidism, coronary artery disease, status post CABG, COPD, CHF, cerebral aneurysm, who was recently discharged from the [facility] after treating for possible CHF and pneumonia. Now the patient was admitted after the cardiac cath for persistent hypoglycemia. The patient underwent cardiac cath this morning and started on IV fluids, D5 half normal saline at 70 mL/hour. The patient denies any chest pain or palpitation. Denies any fever or cough. No abdominal pain. No nausea, vomiting, or diarrhea. Status post hypoglycemia this morning. PAST MEDICAL HISTORY: Significant for longstanding hypertension, diabetes, CHF, CKD 3, proteinuria, anemia, COPD. PAST SURGICAL HISTORY: Status post CABG, and also has cerebral aneurysm. ALLERGIES: NO KNOWN DRUG ALLERGIES. SOCIAL HISTORY: No smoking. No alcohol or drugs at this time. FAMILY HISTORY: Not significant. CURRENT MEDICATIONS: Include as follows: Hydralazine 50 mg p.o. t.i.d., Colace 100 mg p.o. b.i.d., Crestor 10 mg at bedtime, D5 half normal saline at 70 mL/hour, subcu heparin 5000 units q.12 hours, metoprolol 25 mg p.o. b.i.d., amlodipine 10 mg daily, Pepcid 20 mg p.o. b.i.d., Plavix 75 mg daily, fenofibrate 145 mg p.o. at bedtime, Tylenol, and allopurinol 100 mg p.o. b.i.d. REVIEW OF SYSTEMS: Significant for hypoglycemia, status post cardiac cath. All other review of systems are reviewed and are negative. PHYSICAL EXAMINATION: VITAL SIGNS: As follows: Blood pressure 131/76, pulse 77, respirations 18, temperature 97.7, saturation 98%, height 5 feet 6 inches, weight is 185 pounds. GENERAL: Mr. Flowers is a 67-year-old elderly [place] male, moderately built, moderately nourished, not in distress. HEENT: Pupils normal and reactive to light and accommodation. Conjunctivae pink. Sclerae anicteric. Tongue is moist. Trachea is midline. LUNGS: Symmetric on both sides. Bilateral breath sounds present. Clear on auscultation. CVS: [place] at the fifth intercostal space, midclavicular line. S1, S2 audible. No murmur or gallop. ABDOMEN: Normal in appearance, soft, tympanic. No guarding. No hepatosplenomegaly. 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 Sensory and motor system is grossly within normal limits. EXTREMITIES: No cyanosis, no clubbing, no edema. CURRENT LABORATORY DATA: Include as follows: Chem-7 as of 11/27/2017, sodium 143, potassium 4.8, chloride 110, CO2 23, BUN 35, creatinine 2.0, glucose 27, and calcium 8.3. His Accu-Cheks 180, 137, 78, and 115. Earlier this morning, his Accu-Chek was 22. ASSESSMENT AND PLAN: In summary, Mr. Lionel FULTON is a 67-year-old elderly [place] male with hypertension, diabetes, hyperlipidemia, coronary artery disease, status post coronary artery bypass graft, and proteinuria, positive serum protein electrophoresis, urine protein electrophoresis. The patient was admitted for status post cardiac cath this morning and persistent hypoglycemia. 1. Chronic kidney disease 3, most likely secondary to diabetic nephropathy, cannot rule out underlying multiple myeloma. 2. Hypertension. Blood pressure is stable. Continue his current medications. 3. Status post cardiac cath this morning. 4. Hypoglycemia. Continue to monitor his Accu-Cheks and try to adjust insulin. Repeat CBC and CMP in a.m. Overall prognosis is guarded. We will follow with you. Thank you for allowing me to participate in your patient's care. Further cardiac management as per Dr. Corey Butler. Susana Jones MD
--- NOTE | 2017-11-28 14:24 | CP.PCM.PN ---
Subjective - Date & Time of Evaluation Date of Evaluation: 11/28/17 Time of Evaluation: 14:23 - Subjective Subjective: pt is seen and examined, follow up consult is dictated #[id number] renal function is stable after cardiac cath Objective - Vital Signs/Intake and Output Vital Signs (last 24 hours): Temp Pulse Resp BP Pulse Ox 98 F 82 20 156/100 H 97 11/28/17 07:00 11/28/17 14:00 11/28/17 07:00 11/28/17 14:00 11/28/17 07:00 Intake and Output: 11/28/17 11/28/17 06:59 18:59 Intake Total 1700 1160 Output Total 600 Balance 1100 1160 - Medications Medications: Current Medications Acetaminophen (Tylenol 325mg Tab) 650 mg PO Q6 PRN PRN Reason: Pain, Mild (1-3) Allopurinol (Zyloprim) 100 mg PO BID [facility] Last Admin: 11/28/17 09:40 Dose: 100 mg Amlodipine Besylate (Norvasc) 10 mg PO DAILY [facility] Last Admin: 11/28/17 09:39 Dose: 10 mg Clopidogrel Bisulfate (Plavix) 75 mg PO DAILY [facility] Last Admin: 11/28/17 09:38 Dose: 75 mg Docusate Sodium (Colace) 100 mg PO BID PRN PRN Reason: Constipation Last Admin: 11/28/17 09:38 Dose: 100 mg Famotidine (Pepcid) 20 mg PO DAILY [facility] Fenofibrate (Tricor) 145 mg PO QPM [facility] Last Admin: 11/27/17 17:28 Dose: 145 mg Heparin Sodium (Porcine) (Heparin) 5,000 units SC Q8 [facility] Last Admin: 11/28/17 13:38 Dose: 5,000 units Hydralazine HCl (Apresoline) 50 mg PO TID [facility] Last Admin: 11/28/17 09:39 Dose: 50 mg Dextrose/Sodium Chloride (Dextrose 5%/0.45% Ns 1000 Ml) 1,000 mls @ 70 mls/hr IV .[id number] [facility] Stop: 11/28/17 23:59 Last Admin: 11/28/17 02:46 Dose: Not Given Metoprolol Tartrate (Lopressor) 25 mg PO BID [facility] Last Admin: 11/28/17 09:38 Dose: 25 mg Pneumococcal Polyvalent Vaccine (Pneumovax 23 Vaccine) 0.5 ml SC .ONCE ONE Stop: 11/29/17 10:01 Rosuvastatin Calcium (Crestor) 10 mg PO [facility] Last Admin: 11/27/17 21:33 Dose: 10 mg - Labs Labs: 11/28/17 06:04 11/28/17 06:04
--- NOTE | 2017-11-28 17:22 | CP.PCM.PN ---
Subjective - Date & Time of Evaluation Date of Evaluation: 11/28/17 Time of Evaluation: 14:00 - Subjective Subjective: Patient seen and evaluated Comfortable Hypoglycemia resolved Possible d/c in am Objective - Vital Signs/Intake and Output Vital Signs (last 24 hours): Temp Pulse Resp BP Pulse Ox 98 F 78 20 156/100 H 97 11/28/17 07:00 11/28/17 16:00 11/28/17 07:00 11/28/17 14:00 11/28/17 07:00 Intake and Output: 11/28/17 11/28/17 06:59 18:59 Intake Total 1700 1160 Output Total 600 Balance 1100 1160 - Medications Medications: Current Medications Acetaminophen (Tylenol 325mg Tab) 650 mg PO Q6 PRN PRN Reason: Pain, Mild (1-3) Allopurinol (Zyloprim) 100 mg PO BID [facility] Last Admin: 11/28/17 09:40 Dose: 100 mg Amlodipine Besylate (Norvasc) 10 mg PO DAILY [facility] Last Admin: 11/28/17 09:39 Dose: 10 mg Clopidogrel Bisulfate (Plavix) 75 mg PO DAILY [facility] Last Admin: 11/28/17 09:38 Dose: 75 mg Docusate Sodium (Colace) 100 mg PO BID PRN PRN Reason: Constipation Last Admin: 11/28/17 09:38 Dose: 100 mg Famotidine (Pepcid) 20 mg PO DAILY [facility] Fenofibrate (Tricor) 145 mg PO QPM [facility] Last Admin: 11/27/17 17:28 Dose: 145 mg Heparin Sodium (Porcine) (Heparin) 5,000 units SC Q8 [facility] Last Admin: 11/28/17 13:38 Dose: 5,000 units Hydralazine HCl (Apresoline) 50 mg PO TID [facility] Last Admin: 11/28/17 14:52 Dose: 50 mg Dextrose/Sodium Chloride (Dextrose 5%/0.45% Ns 1000 Ml) 1,000 mls @ 70 mls/hr IV .[id number] [facility] Stop: 11/28/17 23:59 Last Admin: 11/28/17 02:46 Dose: Not Given Metoprolol Tartrate (Lopressor) 25 mg PO BID [facility] Last Admin: 11/28/17 09:38 Dose: 25 mg Pneumococcal Polyvalent Vaccine (Pneumovax 23 Vaccine) 0.5 ml SC .ONCE ONE Stop: 11/29/17 10:01 Rosuvastatin Calcium (Crestor) 10 mg PO HS [facility] Last Admin: 11/27/17 21:33 Dose: 10 mg - Labs Labs: 11/28/17 06:04 11/28/17 06:04
[2017-11-28] MEDS: (Novolog) Insulin Aspart, Recombinant 100 u/ml 10 ml vial SC SCH (21:47)
[2017-11-29] MEDS: (Novolog) Insulin Aspart, Recombinant 100 u/ml 10 ml vial SC SCH ×2 (07:30→11:52)
[2017-11-29 08:42] VITALS: PULSE 77; TEMP 98.6; O2SAT 95
[2017-11-29] MEDS ORDERED: Pneumococcal 23-Valent Vaccine SC ONE (10:00)
[2017-11-29] MEDS ORDERED: Influenza Vaccine 60 mcg/0.5 mL SYR (4YR UP) IM ONE (10:00)
--- NOTE | 2017-11-29 12:18 | CP.PCM.DIS ---
Provider - Provider Date of Admission: 11/27/17 11:16 Attending physician: Paola Adams MD Primary care physician: Dr. Zendejas Consults: Dr. Butler Time Spent in preparation of Discharge (in minutes): 45 Diagnosis - Discharge Diagnosis (1) CAD (coronary artery disease) Status: Acute (2) Hypoglycemia Status: Acute Hospital Course - Lab Results Lab Results: Most Recent Lab Values WBC 5.8 K/uL (4.8-10.8) 11/28/17 06:04 RBC 4.02 Mil/uL (4.40-5.90) L 11/28/17 06:04 Hgb 11.4 g/dL (12.0-18.0) L 11/28/17 06:04 Hct 35.8 % (35.0-51.0) 11/28/17 06:04 MCV 89.0 fL (80.0-94.0) 11/28/17 06:04 MCH 28.3 pg (27.0-31.0) 11/28/17 06:04 MCHC 31.9 g/dL (33.0-37.0) L 11/28/17 06:04 RDW 17.9 % (11.5-14.5) H 11/28/17 06:04 Plt Count 257 K/uL (130-400) 11/28/17 06:04 MPV 8.5 fL (7.2-11.7) 11/28/17 06:04 Neut % (Auto) 75.1 % (50.0-75.0) H 11/28/17 06:04 Lymph % (Auto) 17.1 % (20.0-40.0) L 11/28/17 06:04 [place] % (Auto) 5.2 % (0.0-10.0) 11/28/17 06:04 Eos % (Auto) 2.3 % (0.0-4.0) 11/28/17 06:04 Baso % (Auto) 0.3 % (0.0-2.0) 11/28/17 06:04 Neut # (Auto) 4.3 K/uL (1.8-7.0) 11/28/17 06:04 Lymph # (Auto) 1.0 K/uL (1.0-4.3) 11/28/17 06:04 [place] # (Auto) 0.3 K/uL (0.0-0.8) 11/28/17 06:04 Eos # (Auto) 0.1 K/uL (0.0-0.7) 11/28/17 06:04 Baso # (Auto) 0.0 K/uL (0.0-0.2) 11/28/17 06:04 Sodium 144 mmol/L (132-148) 11/28/17 06:04 Potassium 5.1 mmol/L (3.6-5.2) 11/28/17 06:04 Chloride 108 mmol/L (98-107) H 11/28/17 06:04 Carbon Dioxide 25 mmol/L (22-30) 11/28/17 06:04 Anion Gap 16 (10-20) 11/28/17 06:04 BUN 31 mg/dL (9-20) H 11/28/17 06:04 Creatinine 2.3 mg/dL (0.8-1.5) H 11/28/17 06:04 Est GFR ( Amer) 35 11/28/17 06:04 Est GFR (Non-Af Amer) 29 11/28/17 06:04 POC Glucose (mg/dL) 177 mg/dL (65-110) H 11/29/17 10:35 Random Glucose 101 mg/dL (75-110) 11/28/17 06:04 Calcium 8.5 mg/dl (8.6-10.4) L 11/28/17 06:04 Discharge Plan - Follow Up Plan Condition: GOOD Disposition: HOME/ ROUTINE Instructions: Type 2 Diabetes, Heart Failure, Adult, Cardiac Catheterization, Heart Healthy Diet, Low Salt Diet, Low Blood Sugar in People With Diabetes, Coronary Heart Disease (DC), Diabetic Meal Planning Additional Instructions: Activity as tolerated, rest in between. Referrals: Corey Butler MD [Staff Provider] - 1 Week Paola Adams MD [Family Provider] - 1 Week
[2017-11-29 13:04] VITALS: BP 130/84
--- NOTE | 2017-11-30 08:01 | PN ---
DATE: 11/28/2017 FOLLOWUP RENAL CONSULTATION LOCATION: Room 660, bed B. REQUESTED BY: Dr. Paola Adams. REASON FOR FOLLOWUP: Chronic kidney disease stage III, status post cardiac cath. HISTORY OF PRESENT ILLNESS: Mr. Flowers is a 67 years old elderly obese Marshallese male with a past medical history significant for longstanding hypertension, diabetes, hyperlipidemia, BPH, CHF, COPD, coronary artery disease status post CABG, aneurysm of the brain was admitted to [facility] after cardiac cath yesterday and hypoglycemia. The patient is feeling much better, not in acute distress. Denies any headache, dizziness. Denies any chest pain or palpitation. Denies any fever or cough. No abdominal pain. No nausea, vomiting, diarrhea. PHYSICAL EXAMINATION: VITAL SIGNS: As follows; blood pressure 156/100, pulse 82, respirations about 20 and temperature 98. Height 5 feet 6 inches, weight is 187 pounds. GENERAL: Mr. Flowers is a 67 years old elderly male, moderately built, moderately nourished, not in distress. HEENT: Pupils normal, reactive to light and accommodation. Conjunctivae pink. Sclerae anicteric. Tongue is moist. Trachea is midline. LUNGS: Symmetric on both sides. Bilateral breath sounds present. Clear on auscultation. CVS: [place] at the fifth intercostal space, midclavicular line. S1 and S2 audible. No murmur or gallop. ABDOMEN: Normal in appearance, soft, tympanic. No guarding, no rigidity. No hepatosplenomegaly. No suprapubic tenderness. 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 Sensory and motor system is grossly within normal limits. EXTREMITIES: No cyanosis, no clubbing. Trace edema in both lower extremities. CURRENT MEDICATIONS: Include as follows; hydralazine 50 mg p.o. t.i.d., Colace 100 mg p.o. b.i.d., Crestor 10 mg at bedtime, IV fluids D5 half normal saline at 70 mL/hour, subcu heparin 5000 q. 8 hours, metoprolol 25 mg p.o. b.i.d., Norvasc 10 mg daily, Pepcid 20 mg daily, Plavix 75 mg p.o. daily, pneumococcal vaccine x1, TriCor 145 mg p.o. q.p.m., Tylenol and allopurinol 100 mg p.o. b.i.d. LABORATORY DATA: His current laboratory data include as follows as of 11/28/2017; WBC 5.8, hemoglobin 11.4, hematocrit is 35.8, platelets 257. Sodium 144, potassium 5.1, chloride BUN 31, creatinine 2.3, glucose 99, calcium 8.5 and GFR is 29. ASSESSMENT: In summary, Mr. Flowers is a 67 years old elderly [place]ese male with history of hypertension, diabetes, hyperlipidemia, coronary artery disease status post coronary artery bypass graft, congestive heart failure, chronic obstructive pulmonary disease, proteinuria and positive urine protein electrophoresis and serum protein electrophoresis and aneurysm of the brain was admitted after cardiac catheterization and hypoglycemia. 1. Status post hypoglycemia. 2. Chronic kidney disease stage IV most likely secondary to diabetic nephropathy, cannot rule out 4:20 ____. 3. Uncontrolled diabetes. 4. Hypertension. Blood pressure is stable. 5. Coronary artery disease status post cardiac catheterization. PLAN: Continue current medical management as per Dr. Corey Butler. DC IV fluids and Lasix 40 mg p.o. daily. We will follow with you. The patient is stable from the renal standpoint. Thank you for allowing me to participate in your patient's care. Susana Jones MD
--- NOTE | 2017-12-02 08:34 | CARDCATH ---
PROCEDURE DATE: 11/27/2017 PROCEDURES: 1. Left heart catheterization. 2. Coronary angiogram. 3. STEVENSON graft angiogram. 4. SVG graft angiogram. 5. Aortogram. REFERRING PHYSICIAN: Paola Adams MD PERFORMING PHYSICIAN: Corey Butler MD CLINICAL INDICATIONS: 1. Angina. 2. Abnormal stress test. 3. History of coronary artery disease, status post CABG x3. 4. Hypertension. 5. CVA. PROCEDURE IN DETAIL: After informed consent, the patient was prepped and draped in the usual sterile fashion, 2% lidocaine was given in the right groin for local anesthesia. Using micropuncture technique, a 6-Guyanese sheath was introduced into right common femoral artery. Using JR4 diagnostic catheter, right coronary angiogram was performed. Using the same catheter, SVG graft angiogram was performed. Using STEVENSON catheter, STEVENSON graft angiogram was performed. Using JL5 6-Guyanese diagnostic catheter, nonselective left coronary angiogram was performed. The patient tolerated the procedure well. FINDINGS: 1. Left main coronary artery is patent. 2. Proximal LAD is 100% occluded. 3. Left circumflex is patent, obtuse marginal branch has 100% occlusion. 4. 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 Proximal right coronary artery has 99% calcific stenosis. PDA has a 70% stenosis. 5. Saphenous vein graft to obtuse marginal artery graft is patent. 6. STEVENSON graft to LAD is patent. 7. SVG graft to RCA is 100% occluded. IMPRESSION: 1. Severe coronary artery disease as described above. 2. High risk right coronary artery interventions versus medical therapy. 3. At present, continue current management. Corey Butler MD
== END 2017-11-29 13:47 | DRG 287 ==
LOC: C.CATHLAB 07:06 → C.6T 11:16
PROVIDERS: ADMIT Internal Medicine; ATTEND Internal Medicine Cardiovascular Disease
PROC: 4A023N7 Measurement of Cardiac Sampling and Pressure, Left Heart, Percutaneous Approach (ICD-10-PCS; principal; 2017-11-27)
PROC: B2111ZZ Fluoroscopy of Multiple Coronary Arteries using Low Osmolar Contrast (ICD-10-PCS; 2017-11-27)
PROC: B2181ZZ Fluoroscopy of Left Internal Mammary Bypass Graft using Low Osmolar Contrast (ICD-10-PCS; 2017-11-27)
PROC: B2131ZZ Fluoroscopy of Multiple Coronary Artery Bypass Grafts using Low Osmolar Contrast (ICD-10-PCS; 2017-11-27)
DX: I25.110 Atherosclerotic heart disease of native coronary artery with unstable angina pectoris (principal); E11.21 Type 2 diabetes mellitus with diabetic nephropathy; E11.649 Type 2 diabetes mellitus with hypoglycemia without coma; N18.4 Chronic kidney disease, stage 4 (severe); I25.82 Chronic total occlusion of coronary artery; I13.0 Hypertensive heart and chronic kidney disease with heart failure and stage 1 through stage 4 chronic kidney disease, or unspecified chronic kidney disease; N25.81 Secondary hyperparathyroidism of renal origin; I50.9 Heart failure, unspecified; R94.39 Abnormal result of other cardiovascular function study; E11.22 Type 2 diabetes mellitus with diabetic chronic kidney disease; E11.65 Type 2 diabetes mellitus with hyperglycemia; E78.5 Hyperlipidemia, unspecified; J44.9 Chronic obstructive pulmonary disease, unspecified; N40.0 Benign prostatic hyperplasia without lower urinary tract symptoms; Z86.73 Personal history of transient ischemic attack (TIA), and cerebral infarction without residual deficits; Z87.891 Personal history of nicotine dependence; Z87.01 Personal history of pneumonia (recurrent); Z95.1 Presence of aortocoronary bypass graft; E66.9 Obesity, unspecified

== ENCOUNTER 2018-02-22 13:15 | Inpatient (IN) | payer MEDICARE ==
[2018-02-22 13:15] VITALS: BMI 29.8
[2018-02-22] MEDS ORDERED: Dextrose 50% SYRINGE Inj (50 ml) ONE (13:47)
[2018-02-22] MEDS ORDERED: Dextrose 50% SYRINGE Inj (50 ml) IV STA (13:51)
[2018-02-22 14:04] LABS: BASO % 0.1 % (0.0-2.0); EOS # 0.1 K/uL (0.0-0.7); EOS % 1.6 % (0.0-4.0); HEMOGLOBIN 11.5 g/dL (12.0-18.0); LYMPH # 0.8 K/uL (1.0-4.3); LYMPH % 9.3 % (20.0-40.0); MEAN CELL VOLUME 86.5 fL (80.0-94.0); MEAN CORPUSCULAR HEMOGLOBIN 28.9 pg (27.0-31.0); MEAN CORPUSCULAR HGB CONC 33.4 g/dL (33.0-37.0); MEAN PLATELET VOLUME 9.1 fL (7.2-11.7); MONO # 0.5 K/uL (0.0-0.8); MONO % 5.4 % (0.0-10.0); NEUT # 7.2 K/uL (1.8-7.0); NEUT % 83.6 % (50.0-75.0); PLATELET COUNT 162 K/uL (130-400); RBC 3.99 Mil/uL (4.40-5.90); WHITE BLOOD COUNT 8.7 K/uL (4.8-10.8)
--- NOTE | 2018-02-22 14:15 | RAD ---
PROCEDURE: CHEST RADIOGRAPH, 1 VIEW HISTORY: Hypoglycemia COMPARISON: 11/02/2017. FINDINGS: LUNGS: There is mild pulmonary venous congestion. There is linear scarring in the right mid lung and probable fibrotic changes in the lower lobe. PLEURA: No pneumothorax or pleural fluid seen. CARDIOVASCULAR: Again seen is severe cardiomegaly. Status post CABG. OSSEOUS STRUCTURES: There are old deformities in the right lower ribs. VISUALIZED UPPER ABDOMEN: Normal. OTHER FINDINGS: None. IMPRESSION: Persistent severe cardiomegaly and mild venous congestion. No active pulmonary disease.
[2018-02-22 14:21] LABS: INR 1.2; PROTHROMBIN TIME 12.6 SECONDS (9.7-12.2)
[2018-02-22 14:34] LABS: ALBUMIN 3.9 g/dL (3.5-5.0); CALCIUM 9.3 mg/dl (8.6-10.4)
[2018-02-22 14:38] LABS: TROPONIN I 0.323 ng/mL (0.00-0.120)
[2018-02-22 14:49] LABS: ANISOCYTOSIS SLIGHT; LYMPHOCYTE 12 % (20-40); MONOCYTE 6 % (0-10); NEUTROPHIL 82 % (50-75); PLATELET ESTIMATE NORMAL (NORMAL); TOTAL CELLS COUNTED 100
[2018-02-22 14:50] LABS: HYPOCHROMIC SLIGHT; POLYCHROMIC SLIGHT
--- NOTE | 2018-02-22 14:54 | CT ---
PROCEDURE: CT HEAD WITHOUT CONTRAST. HISTORY: Fell and hit head today COMPARISON: 11/06/2017. TECHNIQUE: Axial computed tomography images were obtained through the head/brain without intravenous contrast. Radiation dose: Total exam DLP = 2070.79 mGy-cm. This CT exam was performed using one or more of the following dose reduction techniques: Automated exposure control, adjustment of the mA and/or kV according to patient size, and/or use of iterative reconstruction technique. FINDINGS: HEMORRHAGE: No intracranial hemorrhage. BRAIN: There are mild chronic microangiopathic changes. There are old lacunar infarctions in the left frontal periventricular white matter and basal ganglia. There is no mass, mass effect or abnormal extra-axial fluid collection. There are coarse atherosclerotic calcifications in the cavernous carotid and vertebral arteries. VENTRICLES: There is mild age-related global parenchymal volume loss and proportionate enlargement of the ventricles and cortical sulci. CALVARIUM: There is no calvarial fracture. There is a moderate high posterior parietal scalp hematoma. PARANASAL SINUSES: Predominantly clear. MASTOID AIR CELLS: Predominantly clear. OTHER FINDINGS: There is a stable superficial sebaceous cyst in the right upper neck soft tissues. IMPRESSION: No acute intracranial abnormality. Moderate high posterior parietal scalp hematoma. Mild chronic microangiopathic changes and mild age-related global parenchymal volume loss. Old left MCA territory lacunar infarctions.
--- NOTE | 2018-02-22 15:28 | C.PDOC ---
History Of Present Illness Pt has been having hypoglycemia episodes for the past 2 days. He states that she has not been giving him his Insulin or his Glimepiride for the past 2 days. He fell in the park today and hit his head. Time Seen by Provider: 02/22/18 13:36 Chief Complaint (Nursing): Dizziness/Lightheaded History Per: Patient, Family History/Exam Limitations: clinical condition Onset/Duration Of Symptoms: Days (2) Current Symptoms Are (Timing): Still Present Severity: Severe Current Diabetic Medications: Insulin, Oral Medication Treatment Prior To Provider Evaluation: Accucheck Additional History Per: Prior Records Past Medical History Reviewed: Historical Data, Nursing Documentation, Vital Signs Vital Signs: Last Vital Signs Temp 98 F 02/22/18 13:37 Pulse 78 02/22/18 13:37 Resp 18 02/22/18 13:37 BP 180/100 H 02/22/18 13:37 Pulse Ox 94 L 02/22/18 13:37 - Medical History PMH: CAD, CHF, COPD, Diabetes, Fractures (childhood), HTN, Hypercholesterolemia , Peripheral Edema, Pneumonia, Chronic Kidney Disease Surgical History: CABG (2005) - [facility] Procedures ASSISTANCE WITH RESPIRATORY VENTILATION, 24-96 HRS, CPAP (07/02/17) ASSISTANCE WITH RESPIRATORY VENTILATION, >96 HRS, CPAP (11/02/17) DRAINAGE OF BLADDER WITH DRAINAGE DEVICE, VIA OPENING (11/02/17) FLUOROSCOPY OF L INT MAMM GRAFT USING L OSM CONTRAST (11/27/17) FLUOROSCOPY OF MULT COR A GRAFT USING L OSM CONTRAST (11/27/17) FLUOROSCOPY OF MULT COR ART USING L OSM CONTRAST (11/27/17) INSERTION OF ENDOTRACHEAL AIRWAY INTO TRACHEA, VIA OPENING (07/02/17) INSERTION OF INFUSION DEV INTO SUP VENA CAVA, PERC APPROACH (07/02/17) MEASURE OF CARDIAC SAMPL & PRESSURE, L HEART, PERC APPROACH (11/27/17) RESPIRATORY VENTILATION, 24-96 CONSECUTIVE HOURS (07/02/17) Family History: States: Unknown Family Hx - Social History Hx Tobacco Use: No Hx Alcohol Use: No Hx Substance Use: No - Immunization History Hx Tetanus Toxoid Vaccination: No Hx Influenza Vaccination: No Hx Pneumococcal Vaccination: Yes Review Of Systems Constitutional: Positive for: Malaise. Negative for: Fever Cardiovascular: Negative for: Chest Pain Respiratory: Positive for: Shortness of Breath. Negative for: Cough Gastrointestinal: Negative for: Vomiting, Abdominal Pain, Diarrhea Genitourinary: Negative for: Dysuria Musculoskeletal: Negative for: Neck Pain, Back Pain Skin: Negative for: Rash Neurological: Negative for: Weakness, Numbness, Seizures Physical Exam - Physical Exam Appears: Chronically Ill Skin: Normal Color, Warm, Dry Head: Swelling (Occipital scalp hematoma), No Laceration Eye(s): bilateral: PERRL, EOMI Neck: Normal ROM, No Midline Cervical Tenderness, No Step Off Deformity, Supple Cardiovascular: Rhythm Regular Respiratory: No Accessory Muscle Use, Rales (at bases) Gastrointestinal/Abdominal: Soft, No Tenderness Back: No CVA Tenderness Extremity: Normal ROM, Pedal Edema Neurological/Psych: Oriented x3, Normal Motor, Normal Sensation, Slow To Respond With Command ED Course And Treatment - Laboratory Results Result Diagrams: 02/22/18 14:00 02/22/18 14:00 Lab Interpretation: Abnormal Interpretation Of Abnormal: Hypoglycemia. Renal insufficiency. Positive Troponin. Elevated BNP. ECG: Interpreted By Me, Viewed By Me ECG Rhythm: Sinus Rhythm, R BBB, Nonspecific Changes ECG Interpretation: No Changes From Prior Rate From EC O2 Sat by Pulse Oximetry: 94 Pulse Ox Interpretation: Other Interpretation Of Abnormal: Borderline - Radiology CXR: Viewed By Me, Read By Radiologist CXR Interpretation: Yes: Cardiomegaly, Other (CHF) - CT Scan/US CT head Other Rad Studies (CT/US): Read By Radiologist, Radiology Report Reviewed CT/US Interpretation: IMPRESSION: No acute intracranial abnormality. Moderate high posterior parietal scalp hematoma. Mild chronic microangiopathic changes and mild age-related global parenchymal volume loss. Old left MCA territory lacunar infarctions. Progress - Interventions Interventions:: Observation, Oxygen - Medications Administered Oral: Aspirin Intravenous: Other (D50) - Data Reviewed Data Reviewed: Lab, Diagnostic imaging, EKG, Old records - Patient Status Patient status: Partially improved - Critical Care Citical Care: Excluding Proc Time Critical Care Time: 60 minutes - Continuity of Care Discussed patient case with:: Patient, Family-HIPPA compliant, ED Nurse, PMD - Patient Plan Patient Plan: Admission, Telemetry Medical Decision Making Medical Decision Making: Troponin is positive, however pt denies chest pain or discomfort. Disposition Discussed With : Paola Adams Comment: She accepted pt on her service. Doctor Will See Patient In The: Hospital Counseled Patient/Family Regarding: Studies Performed, Diagnosis - Disposition Disposition: HOSPITALIZED Disposition Time: 15:35 Condition: GUARDED - POA Present On Arrival: Poor Glycemic Control - Clinical Impression Clinical Impression: Multiple episodes of hypoglycemia, Head injury, closed, Troponin I above reference range, Renal insufficiency, CHF (congestive heart failure)
[2018-02-22 16:03] LABS: SQUAMOUS EPITHIAL < 1 /hpf (0-5); URINE BILIRUBIN NEGATIVE (NEGATIVE); URINE BLOOD NEGATIVE (NEGATIVE); URINE CLARITY Clear (Clear); URINE COLOR Yellow (YELLOW); URINE GLUCOSE (UA) 1+ mg/dL (Normal); URINE LEUKOCYTE ESTERASE NEG Leu/uL (Negative); URINE PROTEIN 2+ mg/dL (NEGATIVE); URINE UROBILINOGEN NORMAL mg/dL (0.2-1.0)
--- NOTE | 2018-02-22 16:18 | CP.PCM.HP ---
History of Present Illness - History of Present Illness History of Present Illness: 67 y.o. male with PMH IDDM2 with episodes of hypoglycemia Hypertension CHF COPD Memory Imparment /Delusion CAD S/ CABG CRI TIA GOUT Aneurysm basilar artery- with neuro was initially brought to clinic today due to fall few hours to clinic- patient and reports that patient was walking for his daily walk activities- when he reports that he trip and fell- hitting his head - sustaining some bleeding ( PE=skin abraision with swelling ), and reports recent hypoglycemia, , [ patient was ambulatory conversant , but decided to send patient to ER . In ER sugar wa less than 30, CT head was unremarkabe, CXR- CHF patient received gucose , troponin was elevated and patient was subsequently admitted for further observation and management ROS no syncope no fevre no chest pain no cough no diarrhea PMH as above Meds allopurinol 100 BID AMLODIPINE 10 OD ASA CLONIDINE .1 BID CLOPIDOGREL 75 OD FENOFIBRATE 160 OD GLIMIPERIDE 2 BID HYDRALAZINE 50 Q 6 LANTUS FISH OIL CRESTRO 10 LASIX 10 Surgery Immunizations 1. pneumonia 2011 social lives with family, takes care of medications espescially insulin has no C no HVN Present on Admission - Present on Admission Any Indicators Present on Admission: Yes History of DVT/PE: No History of Uncontrolled Diabetes: Yes Urinary Catheter: No Decubitus Ulcer Present: No Review of Systems - Constitutional Constitutional: Other (frequent episodes of hypoglycemia, ) - EENT Eyes: Other (suffered bleeding top of head after todays fall ). absent: Other Visual Disturbances Ears: absent: Ear Discharge, Ear Pain Nose/Mouth/Throat: absent: Epistaxis, Nasal Congestion - Cardiovascular Cardiovascular: Dyspnea on Exertion. absent: Chest Pain, Syncope - Respiratory Respiratory: Dyspnea on Exertion. absent: Cough, Hemoptysis, Wheezing - Gastrointestinal Gastrointestinal: absent: Abdominal Pain, Bloating, Diarrhea, Vomiting - Genitourinary Genitourinary: absent: Difficulty Urinating, Flank Pain, Hematuria - Musculoskeletal Musculoskeletal: absent: Abnormal Gait, Deformity, Joint Swelling - Integumentary Integumentary: Wounds (top of head =abraions from accident ) - Neurological Neurological: Abnormal Movements, Abnormal Speech, Memory Loss, Tremor. absent : Focal Weakness, Syncope - Psychiatric Psychiatric: Memory Loss. absent: Behavioral Changes, Visual Hallucinations, Tactile Hallucinations - Endocrine Endocrine: Polyphagia - Hematologic/Lymphatic Hematologic: absent: Easy Bleeding, Easy Bruising Past Patient History - Infectious Disease Hx of Infectious Diseases: None - Past Medical History & Family History Past Medical History?: Yes - Past Social History Smoking Status: Former Smoker - CARDIAC Hx Congestive Heart Failure: Yes Hx Hypercholesterolemia: Yes Hx Hypertension: Yes Hx Peripheral Edema: Yes - PULMONARY Hx Chronic Obstructive Pulmonary Disease (COPD): Yes Hx Pneumonia: Yes - NEUROLOGICAL Hx Neurological Disorder: Yes - HEENT Hx HEENT Problems: No - RENAL Hx Chronic Kidney Disease: Yes - ENDOCRINE/METABOLIC Hx Endocrine Disorders: Yes Hx Diabetes Mellitus Type 2: Yes - HEMATOLOGICAL/ONCOLOGICAL Hx Blood Disorders: No - INTEGUMENTARY Hx Dermatological Problems: No - MUSCULOSKELETAL/RHEUMATOLOGICAL Hx Fractures: Yes (childhood) - GASTROINTESTINAL Hx Gastrointestinal Disorders: No - GENITOURINARY/GYNECOLOGICAL Hx Genitourinary Disorders: No - PSYCHIATRIC Hx Substance Use: No - SURGICAL HISTORY Hx Coronary Artery Bypass Graft: Yes (2005) - ANESTHESIA Hx Anesthesia: Yes Meds Allergies/Adverse Reactions: Allergies Allergy/AdvReac Type Severity Reaction Status Date / Time alprazolam [From Xanax] AdvReac SHORTNESS Verified 02/22/18 13:25 OF BREATH lorazepam [From Ativan] AdvReac SHORTNESS Verified 02/22/18 13:25 OF BREATH Physical Exam - Constitutional Appears: Non-toxic, No Acute Distress, Other (quiet) - Head Exam Head Exam: NORMAL INSPECTION (abraisions scalp top of head , ). absent: ATRAUMATIC - Eye Exam Eye Exam: Normal appearance. absent: Nystagmus, Periorbital swelling - ENT Exam ENT Exam: Mucous Membranes Moist - Respiratory Exam Respiratory Exam: Decreased Breath Sounds, NORMAL BREATHING PATTERN. absent: Wheezes - Cardiovascular Exam Cardiovascular Exam: REGULAR RHYTHM - GI/Abdominal Exam GI & Abdominal Exam: Normal Bowel Sounds, Soft. absent: Distended, Tenderness - Extremities Exam Extremities exam: Positive for: pedal pulses present. Negative for: joint swelling, pedal edema, tenderness - Back Exam Back exam: FULL ROM - Neurological Exam Neurological exam: Alert, Normal Gait, Oriented x3 - Psychiatric Exam Psychiatric exam: Normal Affect, Normal Mood - Skin Skin Exam: Normal Color (with abrasion top of head) Results - Vital Signs Recent Vital Signs: Last Vital Signs Temp 98 F 02/22/18 13:37 Pulse 78 02/22/18 13:37 Resp 18 02/22/18 13:37 BP 180/100 H 02/22/18 13:37 Pulse Ox 94 L 02/22/18 15:37 - Labs Result Diagrams: 02/22/18 14:00 02/22/18 14:00 Labs: Laboratory Results - last 24 hr 02/22/18 02/22/18 02/22/18 13:38 13:41 13:58 WBC RBC Hgb Hct MCV MCH MCHC RDW Plt Count MPV Neut % (Auto) Lymph % (Auto) [place] % (Auto) Eos % (Auto) Baso % (Auto) Neut # (Auto) Lymph # (Auto) [place] # (Auto) Eos # (Auto) Baso # (Auto) Neutrophils % (Manual) Lymphocytes % (Manual) Monocytes % (Manual) Platelet Estimate Polychromasia Hypochromasia (manual) Anisocytosis (manual) PT INR APTT Sodium Potassium Chloride Carbon Dioxide Anion Gap BUN Creatinine Est GFR ( Amer) Est GFR (Non-Af Amer) POC Glucose (mg/dL) 21 L* 20 L* 120 H Random Glucose Calcium Total Bilirubin AST ALT Alkaline Phosphatase Troponin I NT-Pro-B Natriuret Pep Total Protein Albumin Globulin Albumin/Globulin Ratio Urine Color Urine Clarity Urine pH Ur Specific [place] Urine Protein Urine Glucose (UA) Urine Ketones Urine Blood Urine Nitrate Urine Bilirubin Urine Urobilinogen Ur Leukocyte Esterase Urine WBC (Auto) Urine RBC (Auto) Ur Squamous Epith Cells 02/22/18 02/22/18 02/22/18 14:00 14:00 14:00 WBC 8.7 RBC 3.99 L Hgb 11.5 L Hct 34.5 L MCV 86.5 D MCH 28.9 MCHC 33.4 RDW 17.0 H Plt Count 162 MPV 9.1 Neut % (Auto) 83.6 H Lymph % (Auto) 9.3 L [place] % (Auto) 5.4 Eos % (Auto) 1.6 Baso % (Auto) 0.1 Neut # (Auto) 7.2 H Lymph # (Auto) 0.8 L [place] # (Auto) 0.5 Eos # (Auto) 0.1 Baso # (Auto) 0.0 Neutrophils % (Manual) 82 H Lymphocytes % (Manual) 12 L Monocytes % (Manual) 6 Platelet Estimate Normal Polychromasia Slight Hypochromasia (manual) Slight Anisocytosis (manual) Slight PT 12.6 H INR 1.2 APTT 47 H Sodium 143 Potassium 4.2 Chloride 102 Carbon Dioxide 27 Anion Gap 18 BUN 54 H Creatinine 2.7 H Est GFR ( Amer) 29 Est GFR (Non-Af Amer) 24 POC Glucose (mg/dL) Random Glucose 28 L* D Calcium 9.3 Total Bilirubin 0.5 AST 54 ALT 32 Alkaline Phosphatase 92 Troponin I 0.3230 H* NT-Pro-B Natriuret Pep 5940 H Total Protein 7.8 Albumin 3.9 Globulin 3.9 Albumin/Globulin Ratio 1.0 Urine Color Urine Clarity Urine pH Ur Specific [place] Urine Protein Urine Glucose (UA) Urine Ketones Urine Blood Urine Nitrate Urine Bilirubin Urine Urobilinogen Ur Leukocyte Esterase Urine WBC (Auto) Urine RBC (Auto) Ur Squamous Epith Cells 02/22/18 02/22/18 15:16 15:57 WBC RBC Hgb Hct MCV MCH MCHC RDW Plt Count MPV Neut % (Auto) Lymph % (Auto) [place] % (Auto) Eos % (Auto) Baso % (Auto) Neut # (Auto) Lymph # (Auto) [place] # (Auto) Eos # (Auto) Baso # (Auto) Neutrophils % (Manual) Lymphocytes % (Manual) Monocytes % (Manual) Platelet Estimate Polychromasia Hypochromasia (manual) Anisocytosis (manual) PT INR APTT Sodium Potassium Chloride Carbon Dioxide Anion Gap BUN Creatinine Est GFR ( Amer) Est GFR (Non-Af Amer) POC Glucose (mg/dL) 117 H Random Glucose Calcium Total Bilirubin AST ALT Alkaline Phosphatase Troponin I NT-Pro-B Natriuret Pep Total Protein Albumin Globulin Albumin/Globulin Ratio Urine Color Yellow Urine Clarity Clear Urine pH 5.0 Ur Specific [place] 1.014 Urine Protein 2+ H Urine Glucose (UA) 1+ H Urine Ketones Negative Urine Blood Negative Urine Nitrate Negative Urine Bilirubin Negative Urine Urobilinogen Normal Ur Leukocyte Esterase Neg Urine WBC (Auto) < 1 Urine RBC (Auto) < 1 Ur Squamous Epith Cells < 1 Assessment & Plan - Assessment and Plan (Free Text) Assessment: Patient with multiple medical problems IDDM2 with frequent episodes of hypoglycemia- need education - due to memory impairment - patient need supervison on his medications- discussed with , protective services social worker , further observation accucheck , no insulin coverage for now, TLC diet , Nutrtion referral , Hypertension not on goal- possibly dixon not receive meds for today, will adjust meds accordingly and monitor S/P Fall with abraision injury ,scalp top of head , wound care referral CHF- continue meds CAD - continue meds COPD cont CRI- meds adhusted accordingly GI prophylaxis DVT prophylaxis if there are no further bleeding from the wound Delusional disorder- calm at the moment - Date & Time Date: 02/22/18 Time: 17:13
[2018-02-22 17:05] LABS: CK-MB 2.5 ng/mL (0.0-3.38); TROPONIN I 0.279 ng/mL (0.00-0.120)
[2018-02-22] MEDS: Omega-3-Acid Ethyl Esters 1 GM Cap PO SCH (17:50)
--- NOTE | 2018-02-23 00:06 | CP.PCM.CON ---
History of Present Illness - History of Present Illness History of Present Illness: Patient seen and evaluated admitted for fall Will follow Past Patient History - Infectious Disease Hx of Infectious Diseases: None - Past Medical History & Family History Past Medical History?: Yes - Past Social History Smoking Status: Former Smoker - CARDIAC Hx Congestive Heart Failure: Yes Hx Hypercholesterolemia: Yes Hx Hypertension: Yes Hx Peripheral Edema: Yes - PULMONARY Hx Chronic Obstructive Pulmonary Disease (COPD): Yes Hx Pneumonia: Yes - NEUROLOGICAL Hx Neurological Disorder: Yes - HEENT Hx HEENT Problems: No - RENAL Hx Chronic Kidney Disease: Yes - ENDOCRINE/METABOLIC Hx Endocrine Disorders: Yes Hx Diabetes Mellitus Type 2: Yes - HEMATOLOGICAL/ONCOLOGICAL Hx Blood Disorders: No - INTEGUMENTARY Hx Dermatological Problems: No - MUSCULOSKELETAL/RHEUMATOLOGICAL Hx Fractures: Yes (childhood) - GASTROINTESTINAL Hx Gastrointestinal Disorders: No - GENITOURINARY/GYNECOLOGICAL Hx Genitourinary Disorders: No - PSYCHIATRIC Hx Substance Use: No - SURGICAL HISTORY Hx Coronary Artery Bypass Graft: Yes (2005) - ANESTHESIA Hx Anesthesia: Yes Meds Allergies/Adverse Reactions: Allergies Allergy/AdvReac Type Severity Reaction Status Date / Time alprazolam [From Xanax] AdvReac SHORTNESS Verified 02/22/18 13:25 OF BREATH lorazepam [From Ativan] AdvReac SHORTNESS Verified 02/22/18 13:25 OF BREATH - Medications Medications: Current Medications Allopurinol (Zyloprim) 100 mg PO BID [facility] Last Admin: 02/22/18 17:50 Dose: 100 mg Aspirin (Ecotrin) 81 mg PO DAILY [facility] Clonidine HCl (Catapres) 0.1 mg PO DAILY [facility] Last Admin: 02/22/18 18:54 Dose: 0.1 mg Clopidogrel Bisulfate (Plavix) 75 mg PO DAILY [facility] Fenofibrate (Tricor) 145 mg PO DAILY [facility] Losartan Potassium (Cozaar) 100 mg PO DAILY [facility] Last Admin: 02/22/18 16:57 Dose: 100 mg Metoprolol Succinate (Toprol Xl) 50 mg PO DAILY [facility] Last Admin: 02/22/18 17:58 Dose: 50 mg [id number] Ethyl Esters (Lovaza) 2 gm PO BID [facility] Last Admin: 02/22/18 17:50 Dose: 2 gm Pantoprazole Sodium (Protonix Ec Tab) 40 mg PO DAILY [facility] Rosuvastatin Calcium (Crestor) 10 mg PO [facility] Last Admin: 02/22/18 22:25 Dose: 10 mg Results - Vital Signs Recent Vital Signs: Last Vital Signs Temp 98.0 F 02/22/18 22:30 Pulse 62 02/22/18 22:30 Resp 18 02/22/18 22:30 BP 122/88 02/22/18 22:30 Pulse Ox 100 02/22/18 22:30 - Labs Result Diagrams: 02/22/18 14:00 02/22/18 14:00 Labs: Laboratory Results - last 24 hr 02/22/18 02/22/18 02/22/18 13:38 13:41 13:58 WBC RBC Hgb Hct MCV MCH MCHC RDW Plt Count MPV Neut % (Auto) Lymph % (Auto) [place] % (Auto) Eos % (Auto) Baso % (Auto) Neut # (Auto) Lymph # (Auto) [place] # (Auto) Eos # (Auto) Baso # (Auto) Neutrophils % (Manual) Lymphocytes % (Manual) Monocytes % (Manual) Platelet Estimate Polychromasia Hypochromasia (manual) Anisocytosis (manual) PT INR APTT Sodium Potassium Chloride Carbon Dioxide Anion Gap BUN Creatinine Est GFR ( Amer) Est GFR (Non-Af Amer) POC Glucose (mg/dL) 21 L* 20 L* 120 H Random Glucose Calcium Total Bilirubin AST ALT Alkaline Phosphatase Total Creatine Kinase CK-MB (Mass) Troponin I NT-Pro-B Natriuret Pep Total Protein Albumin Globulin Albumin/Globulin Ratio Urine Color Urine Clarity Urine pH Ur Specific [place] Urine Protein Urine Glucose (UA) Urine Ketones Urine Blood Urine Nitrate Urine Bilirubin Urine Urobilinogen Ur Leukocyte Esterase Urine WBC (Auto) Urine RBC (Auto) Ur Squamous Epith Cells 02/22/18 02/22/18 02/22/18 14:00 14:00 14:00 WBC 8.7 RBC 3.99 L Hgb 11.5 L Hct 34.5 L MCV 86.5 D MCH 28.9 MCHC 33.4 RDW 17.0 H Plt Count 162 MPV 9.1 Neut % (Auto) 83.6 H Lymph % (Auto) 9.3 L [place] % (Auto) 5.4 Eos % (Auto) 1.6 Baso % (Auto) 0.1 Neut # (Auto) 7.2 H Lymph # (Auto) 0.8 L [place] # (Auto) 0.5 Eos # (Auto) 0.1 Baso # (Auto) 0.0 Neutrophils % (Manual) 82 H Lymphocytes % (Manual) 12 L Monocytes % (Manual) 6 Platelet Estimate Normal Polychromasia Slight Hypochromasia (manual) Slight Anisocytosis (manual) Slight PT 12.6 H INR 1.2 APTT 47 H Sodium 143 Potassium 4.2 Chloride 102 Carbon Dioxide 27 Anion Gap 18 BUN 54 H Creatinine 2.7 H Est GFR ( Amer) 29 Est GFR (Non-Af Amer) 24 POC Glucose (mg/dL) Random Glucose 28 L* D Calcium 9.3 Total Bilirubin 0.5 AST 54 ALT 32 Alkaline Phosphatase 92 Total Creatine Kinase CK-MB (Mass) Troponin I 0.3230 H* NT-Pro-B Natriuret Pep 5940 H Total Protein 7.8 Albumin 3.9 Globulin 3.9 Albumin/Globulin Ratio 1.0 Urine Color Urine Clarity Urine pH Ur Specific [place] Urine Protein Urine Glucose (UA) Urine Ketones Urine Blood Urine Nitrate Urine Bilirubin Urine Urobilinogen Ur Leukocyte Esterase Urine WBC (Auto) Urine RBC (Auto) Ur Squamous Epith Cells 02/22/18 02/22/18 02/22/18 15:16 15:43 15:57 WBC RBC Hgb Hct MCV MCH MCHC RDW Plt Count MPV Neut % (Auto) Lymph % (Auto) [place] % (Auto) Eos % (Auto) Baso % (Auto) Neut # (Auto) Lymph # (Auto) [place] # (Auto) Eos # (Auto) Baso # (Auto) Neutrophils % (Manual) Lymphocytes % (Manual) Monocytes % (Manual) Platelet Estimate Polychromasia Hypochromasia (manual) Anisocytosis (manual) PT INR APTT Sodium Potassium Chloride Carbon Dioxide Anion Gap BUN Creatinine Est GFR ( Amer) Est GFR (Non-Af Amer) POC Glucose (mg/dL) 117 H 126 H Random Glucose Calcium Total Bilirubin AST ALT Alkaline Phosphatase Total Creatine Kinase CK-MB (Mass) Troponin I NT-Pro-B Natriuret Pep Total Protein Albumin Globulin Albumin/Globulin Ratio Urine Color Yellow Urine Clarity Clear Urine pH 5.0 Ur Specific [place] 1.014 Urine Protein 2+ H Urine Glucose (UA) 1+ H Urine Ketones Negative Urine Blood Negative Urine Nitrate Negative Urine Bilirubin Negative Urine Urobilinogen Normal Ur Leukocyte Esterase Neg Urine WBC (Auto) < 1 Urine RBC (Auto) < 1 Ur Squamous Epith Cells < 1 02/22/18 02/22/18 16:34 21:51 WBC RBC Hgb Hct MCV MCH MCHC RDW Plt Count MPV Neut % (Auto) Lymph % (Auto) [place] % (Auto) Eos % (Auto) Baso % (Auto) Neut # (Auto) Lymph # (Auto) [place] # (Auto) Eos # (Auto) Baso # (Auto) Neutrophils % (Manual) Lymphocytes % (Manual) Monocytes % (Manual) Platelet Estimate Polychromasia Hypochromasia (manual) Anisocytosis (manual) PT INR APTT Sodium Potassium Chloride Carbon Dioxide Anion Gap BUN Creatinine Est GFR ( Amer) Est GFR (Non-Af Amer) POC Glucose (mg/dL) 90 Random Glucose Calcium Total Bilirubin AST ALT Alkaline Phosphatase Total Creatine Kinase 251 H CK-MB (Mass) 2.50 Troponin I 0.2790 H* NT-Pro-B Natriuret Pep Total Protein Albumin Globulin Albumin/Globulin Ratio Urine Color Urine Clarity Urine pH Ur Specific [place] Urine Protein Urine Glucose (UA) Urine Ketones Urine Blood Urine Nitrate Urine Bilirubin Urine Urobilinogen Ur Leukocyte Esterase Urine WBC (Auto) Urine RBC (Auto) Ur Squamous Epith Cells
[2018-02-23 01:17] LABS: CK-MB 3.02 ng/mL (0.0-3.38); TROPONIN I 0.31 ng/mL (0.00-0.120)
--- NOTE | 2018-02-23 07:59 | CP.PCM.PN ---
Subjective - Date & Time of Evaluation Date of Evaluation: 02/23/18 Time of Evaluation: 09:00 - Subjective Subjective: Todays Bp was callled- on the high side medication review and will adjust patient report no pain, no chest pain no head ache , top of head hematoma with abraisions no active bleeding discussion of condition staff discussion regarding home case management social worker espescially medication / possible errors by patient Objective - Vital Signs/Intake and Output Vital Signs (last 24 hours): Temp Pulse Resp BP Pulse Ox 97.6 F 65 20 164/101 H 100 02/23/18 07:00 02/23/18 07:00 02/23/18 07:00 02/23/18 05:20 02/23/18 07:00 - Medications Medications: Current Medications Allopurinol (Zyloprim) 100 mg PO BID [facility] Last Admin: 02/22/18 17:50 Dose: 100 mg Aspirin (Ecotrin) 81 mg PO DAILY [facility] Clonidine HCl (Catapres) 0.1 mg PO DAILY [facility] Clopidogrel Bisulfate (Plavix) 75 mg PO DAILY [facility] Fenofibrate (Tricor) 145 mg PO DAILY [facility] Losartan Potassium (Cozaar) 100 mg PO DAILY [facility] Last Admin: 02/22/18 16:57 Dose: 100 mg Metoprolol Succinate (Toprol Xl) 50 mg PO DAILY [facility] [id number]-9-[id number] Ethyl Esters (Lovaza) 2 gm PO BID [facility] Last Admin: 02/22/18 17:50 Dose: 2 gm Pantoprazole Sodium (Protonix Ec Tab) 40 mg PO DAILY [facility] Pneumococcal Polyvalent Vaccine (Pneumovax 23 Vaccine) 0.5 ml IM .ONCE ONE Stop: 02/25/18 14:01 Rosuvastatin Calcium (Crestor) 10 mg PO [facility] Last Admin: 02/22/18 22:25 Dose: 10 mg - Labs Labs: 02/22/18 14:00 02/22/18 14:00 PT 12.6 SECONDS (9.7-12.2) H 02/22/18 14:00 INR 1.2 02/22/18 14:00 APTT 47 SECONDS (21-34) H 02/22/18 14:00 - Constitutional Appears: Non-toxic, No Acute Distress - Head Exam Head Exam: NORMAL INSPECTION (other than the abraision injury with hematoma- parietal ) - Eye Exam Eye Exam: Normal appearance. absent: Nystagmus - ENT Exam ENT Exam: Mucous Membranes Moist - Respiratory Exam Respiratory Exam: Clear to Ausculation Bilateral, NORMAL BREATHING PATTERN - Cardiovascular Exam Cardiovascular Exam: REGULAR RHYTHM - GI/Abdominal Exam GI & Abdominal Exam: Soft, Normal Bowel Sounds. absent: Tenderness - Extremities Exam Extremities Exam: Pedal Edema. absent: Tenderness - Back Exam Back Exam: Full ROM. absent: rash noted - Neurological Exam Neurological Exam: Alert, Awake, Normal Gait, Oriented x3 - Psychiatric Exam Psychiatric exam: Normal Affect, Normal Mood - Skin Skin Exam: Intact (other than the scalp), Normal Color Assessment and Plan - Assessment and Plan (Free Text) Assessment: Patient with multiple medical problmes admitted for Fall with hematoma braision injury scalp parietal no active bleeding, holding DVT prophylaxis Hypoglycemia on uncontrolled DM on Insulin, currently holding DM meds, , no change in consciuosness, further observation Uncontrolled hypertension, adjusting dosages CHF - lasix GI prophylaxis DVT drug prophy;axis- contraindicated due to parietal hematoma from fall- do SCD for now Discussion of home services regarding patient's medication- patient has history of frequent hypoglycemia in an uncontrolled DM and high BP readings despite patient reports complaince. CRI- been evaluated -stable COPD stable CAD
[2018-02-23] MEDS: Metoprolol Succinate 50 mg XL Tab PO SCH ×2 (08:10→10:45)
[2018-02-23] MEDS: Omega-3-Acid Ethyl Esters 1 GM Cap PO SCH ×2 (09:15→17:38)
[2018-02-23] MEDS: Pantoprazole 40 mg EC Tab PO SCH (09:15)
[2018-02-23] MEDS ORDERED: Metoprolol Succinate 50 mg XL Tab PO SCH (10:00)
[2018-02-23] MEDS: (Novolog) Insulin Aspart, Recombinant 100 u/ml 10 ml vial SC SCH ×3 (12:16→22:16)
--- NOTE | 2018-02-23 12:38 | CARD ---
APPROVED REPORT EKG Measurement Heart [id number] [id number] <Conclusion> Sinus rhythm with premature atrial complexes Right bundle branch block Left anterior fascicular block Bifascicular block Minimal voltage criteria for LVH, may be normal variant Abnormal ECG
--- NOTE | 2018-02-24 07:49 | CP.PCM.PN ---
Subjective - Date & Time of Evaluation Date of Evaluation: 02/23/18 Time of Evaluation: 16:45 - Subjective Subjective: Patient seen and evaluated Mildly elevated Troponin Denies chest pain Due to complex CAD will manage him medically only for now Objective - Vital Signs/Intake and Output Vital Signs (last 24 hours): Temp Pulse Resp BP Pulse Ox 98 F 69 20 164/100 H 98 02/24/18 04:05 02/24/18 04:05 02/24/18 04:05 02/24/18 04:05 02/24/18 04:05 - Medications Medications: Current Medications Allopurinol (Zyloprim) 100 mg PO BID [facility] Last Admin: 02/23/18 17:38 Dose: 100 mg Aspirin (Ecotrin) 81 mg PO DAILY [facility] Last Admin: 02/23/18 09:15 Dose: 81 mg Clonidine HCl (Catapres) 0.1 mg PO BID [facility] Last Admin: 02/23/18 20:26 Dose: Not Given Clopidogrel Bisulfate (Plavix) 75 mg PO DAILY [facility] Last Admin: 02/23/18 09:15 Dose: 75 mg Fenofibrate (Tricor) 145 mg PO DAILY [facility] Last Admin: 02/23/18 10:45 Dose: Not Given Furosemide (Lasix) 10 mg PO DAILY [facility] Insulin Aspart (Novolog) 0 unit SC [facility] PRN Reason: Protocol Last Admin: 02/23/18 22:16 Dose: Not Given Losartan Potassium (Cozaar) 100 mg PO DAILY [facility] Last Admin: 02/23/18 10:45 Dose: Not Given Metoprolol Succinate (Toprol Xl) 50 mg PO DAILY [facility] Last Admin: 02/23/18 10:45 Dose: Not Given Xyoce-4-Ovcr Ethyl Esters (Lovaza) 2 gm PO BID [facility] Last Admin: 02/23/18 17:38 Dose: 2 gm Pantoprazole Sodium (Protonix Ec Tab) 40 mg PO DAILY [facility] Last Admin: 02/23/18 09:15 Dose: 40 mg Pneumococcal Polyvalent Vaccine (Pneumovax 23 Vaccine) 0.5 ml IM .ONCE ONE Stop: 02/25/18 14:01 Rosuvastatin Calcium (Crestor) 10 mg PO [facility] Last Admin: 02/23/18 22:06 Dose: 10 mg - Labs Labs: 02/22/18 14:00 02/22/18 14:00 PT 12.6 SECONDS (9.7-12.2) H 02/22/18 14:00 INR 1.2 02/22/18 14:00 APTT 47 SECONDS (21-34) H 02/22/18 14:00
[2018-02-24] MEDS: (Novolog) Insulin Aspart, Recombinant 100 u/ml 10 ml vial SC SCH ×4 (08:44→22:11)
[2018-02-24] MEDS: Omega-3-Acid Ethyl Esters 1 GM Cap PO SCH ×2 (09:26→17:45)
[2018-02-24] MEDS: Pantoprazole 40 mg EC Tab PO SCH (09:34)
[2018-02-24] MEDS: Metoprolol Succinate 50 mg XL Tab PO SCH (09:36)
[2018-02-24] MEDS ORDERED: Furosemide 10 mg/mL LIQ (60mL) PO SCH (10:00)
--- NOTE | 2018-02-24 10:35 | CP.PCM.PN ---
Subjective - Date & Time of Evaluation Date of Evaluation: 02/24/18 Time of Evaluation: 10:35 - Subjective Subjective: patient seen awake alert noted BP running high - medication discussion and adjustment with staff and patient still has swelling of feet no chest pain no headache patients ambulates no complaints nurse repprts when patient sleeps- difficult to awake- happens also at home , patient denies any complaints Objective - Vital Signs/Intake and Output Vital Signs (last 24 hours): Temp Pulse Resp BP Pulse Ox 99.4 F 71 18 176/109 H 100 02/24/18 07:05 02/24/18 07:05 02/24/18 07:05 02/24/18 09:35 02/24/18 07:05 - Medications Medications: Current Medications Allopurinol (Zyloprim) 100 mg PO BID [facility] Last Admin: 02/24/18 09:34 Dose: 100 mg Aspirin (Ecotrin) 81 mg PO DAILY [facility] Last Admin: 02/24/18 09:26 Dose: 81 mg Clonidine HCl (Catapres) 0.1 mg PO BID [facility] Last Admin: 02/24/18 09:35 Dose: 0.1 mg Clopidogrel Bisulfate (Plavix) 75 mg PO DAILY [facility] Last Admin: 02/24/18 09:35 Dose: 75 mg Fenofibrate (Tricor) 145 mg PO DAILY [facility] Last Admin: 02/24/18 09:36 Dose: 145 mg Furosemide (Lasix) 10 mg PO DAILY [facility] Last Admin: 02/24/18 09:35 Dose: 10 mg Insulin Aspart (Novolog) 0 unit SC [facility] PRN Reason: Protocol Last Admin: 02/24/18 08:44 Dose: 2 unit Losartan Potassium (Cozaar) 100 mg PO DAILY [facility] Last Admin: 02/24/18 09:34 Dose: 100 mg Metoprolol Succinate (Toprol Xl) 50 mg PO DAILY [facility] Last Admin: 02/24/18 09:36 Dose: 50 mg Kfuti-1-Okvs Ethyl Esters (Lovaza) 2 gm PO BID [facility] Last Admin: 02/24/18 09:26 Dose: 2 gm Pantoprazole Sodium (Protonix Ec Tab) 40 mg PO DAILY [facility] Last Admin: 02/24/18 09:34 Dose: 40 mg Pneumococcal Polyvalent Vaccine (Pneumovax 23 Vaccine) 0.5 ml IM .ONCE ONE Stop: 02/25/18 14:01 Rosuvastatin Calcium (Crestor) 10 mg PO HS [facility] Last Admin: 02/23/18 22:06 Dose: 10 mg - Labs Labs: 02/22/18 14:00 02/22/18 14:00 PT 12.6 SECONDS (9.7-12.2) H 02/22/18 14:00 INR 1.2 02/22/18 14:00 APTT 47 SECONDS (21-34) H 02/22/18 14:00 - Constitutional Appears: Well, Non-toxic - Head Exam Head Exam: ATRAUMATIC (other than parietal abraiosion healing ) - Eye Exam Eye Exam: Normal appearance. absent: Nystagmus - ENT Exam ENT Exam: Mucous Membranes Moist - Neck Exam Neck Exam: Full ROM - Respiratory Exam Respiratory Exam: Clear to Ausculation Bilateral, NORMAL BREATHING PATTERN - Cardiovascular Exam Cardiovascular Exam: REGULAR RHYTHM - GI/Abdominal Exam GI & Abdominal Exam: Soft, Normal Bowel Sounds. absent: Mass - Back Exam Back Exam: absent: rash noted - Neurological Exam Neurological Exam: Alert, Awake, Normal Gait, Oriented x3 - Psychiatric Exam Psychiatric exam: Normal Affect, Normal Mood - Skin Skin Exam: Intact (other than the scalp abraisions which is healing ), Normal Color Assessment and Plan - Assessment and Plan (Free Text) Assessment: Patient with CRI CAD COPD ,t with history of uncontrolled DM on Insulin admitted for hypoglycemia, hypoglycemia improved and sugar rum=nning high agai- will resume Insulin, discussion with family and patient and nursing home social worker regarding help in patients medication abraision injury and hematoma parietal area- s/p fall - healing with nCT head unremarkable Uncontrolled hypertension- will keep on adjusting medications - again patient need supervison on medication when home- discussed patient is ambulatory , with leg sequential avoiding drug dvt prophylaxis due to parietal hematoma sustained from fall continue further monitoring and med adjustment
[2018-02-24] MEDS: (Lantus) Insulin Glargine, Recombinant SC SCH (14:53)
--- NOTE | 2018-02-24 23:17 | CP.PCM.PN ---
Subjective - Date & Time of Evaluation Date of Evaluation: 02/24/18 Time of Evaluation: 17:10 - Subjective Subjective: Patient seen and evaluated Feels better Objective - Vital Signs/Intake and Output Vital Signs (last 24 hours): Temp Pulse Resp BP Pulse Ox 97.2 F L 85 20 185/108 H 96 02/24/18 15:20 02/24/18 22:36 02/24/18 15:20 02/24/18 22:36 02/24/18 15:20 - Medications Medications: Current Medications Allopurinol (Zyloprim) [address] [facility] Last Admin: 02/24/18 17:44 Dose: 100 mg Amlodipine Besylate (Norvasc) [address] [facility] Aspirin (Ecotrin) [address] [facility] Last Admin: 02/24/18 09:26 Dose: 81 mg Clonidine HCl (Catapres) 0.[address] [facility] Last Admin: 02/24/18 17:44 Dose: 0.1 mg Clopidogrel Bisulfate (Plavix) [address] [facility] Last Admin: 02/24/18 09:35 Dose: 75 mg Fenofibrate (Tricor) [address] [facility] Last Admin: 02/24/18 09:36 Dose: 145 mg Furosemide (Lasix) [address] [facility] Hydralazine HCl (Apresoline) [address] [facility] Last Admin: 02/24/18 17:44 Dose: 25 mg Insulin Aspart (Novolog) [address] [facility] PRN Reason: Protocol Last Admin: 02/24/18 22:11 Dose: Not Given Insulin Glargine (Lantus) [address] [facility] Last Admin: 02/24/18 14:53 Dose: 10 unit Losartan Potassium (Cozaar) [address] [facility] Last Admin: 02/24/18 09:34 Dose: 100 mg Metoprolol Succinate (Toprol Xl) [address] [facility] Last Admin: 02/24/18 09:36 Dose: 50 mg Lgouq-5-Xohw Ethyl Esters (Lovaza) [address] [facility] Last Admin: 02/24/18 17:45 Dose: 2 gm Pantoprazole Sodium (Protonix Ec Tab) [address] [facility] Last Admin: 02/24/18 09:34 Dose: 40 mg Pneumococcal Polyvalent Vaccine (Pneumovax 23 Vaccine) 0.5 ml IM .ONCE ONE Stop: 02/25/18 14:01 Rosuvastatin Calcium (Crestor) 10 mg PO HS [facility] Last Admin: 02/24/18 22:09 Dose: 10 mg - Labs Labs: 02/22/18 14:00 02/22/18 14:00 PT 12.6 SECONDS (9.7-12.2) H 02/22/18 14:00 INR 1.2 02/22/18 14:00 APTT 47 SECONDS (21-34) H 02/22/18 14:00
--- NOTE | 2018-02-25 06:19 | CP.PCM.PN ---
Subjective - Date & Time of Evaluation Date of Evaluation: 02/25/18 Time of Evaluation: 09:00 - Subjective Subjective: Review of Blod pressure readings still high despite of another medication adjustment . will again adjust meds- will increase hydralazine patient denies chest pain headache, he is aware of condition, discussed compliance , discussed medication supervison , compliance to diet , TLC legs still edematous but going down on lasix no SOB Objective - Vital Signs/Intake and Output Vital Signs (last 24 hours): Temp Pulse Resp BP Pulse Ox 97.5 F L 95 H 20 166/96 H 99 02/25/18 04:30 02/25/18 04:30 02/25/18 04:30 02/25/18 04:30 02/25/18 04:30 - Medications Medications: Current Medications Allopurinol (Zyloprim) 100 mg PO BID [facility] Last Admin: 02/24/18 17:44 Dose: 100 mg Amlodipine Besylate (Norvasc) 10 mg PO DAILY [facility] Aspirin (Ecotrin) 81 mg PO DAILY [facility] Last Admin: 02/24/18 09:26 Dose: 81 mg Clonidine HCl (Catapres) 0.1 mg PO BID [facility] Last Admin: 02/24/18 17:44 Dose: 0.1 mg Clopidogrel Bisulfate (Plavix) 75 mg PO DAILY [facility] Last Admin: 02/24/18 09:35 Dose: 75 mg Fenofibrate (Tricor) 145 mg PO DAILY [facility] Last Admin: 02/24/18 09:36 Dose: 145 mg Furosemide (Lasix) 20 mg PO DAILY [facility] Hydralazine HCl (Apresoline) 50 mg PO TID [facility] Insulin Aspart (Novolog) 0 unit SC [facility] PRN Reason: Protocol Last Admin: 02/24/18 22:11 Dose: Not Given Insulin Glargine (Lantus) 10 unit SC DAILY [facility] Last Admin: 02/24/18 14:53 Dose: 10 unit Losartan Potassium (Cozaar) 100 mg PO DAILY [facility] Last Admin: 02/24/18 09:34 Dose: 100 mg Metoprolol Succinate (Toprol Xl) 50 mg PO DAILY [facility] Last Admin: 02/24/18 09:36 Dose: 50 mg Xnmqx-3-Kdki Ethyl Esters (Lovaza) 2 gm PO BID [facility] Last Admin: 02/24/18 17:45 Dose: 2 gm Pantoprazole Sodium (Protonix Ec Tab) 40 mg PO DAILY [facility] Last Admin: 02/24/18 09:34 Dose: 40 mg Pneumococcal Polyvalent Vaccine (Pneumovax 23 Vaccine) 0.5 ml IM .ONCE ONE Stop: 02/25/18 14:01 Rosuvastatin Calcium (Crestor) 10 mg PO HS [facility] Last Admin: 02/24/18 22:09 Dose: 10 mg - Labs Labs: 02/22/18 14:00 02/22/18 14:00 PT 12.6 SECONDS (9.7-12.2) H 02/22/18 14:00 INR 1.2 02/22/18 14:00 APTT 47 SECONDS (21-34) H 02/22/18 14:00 - Constitutional Appears: Non-toxic, No Acute Distress - Head Exam Head Exam: ATRAUMATIC, NORMOCEPHALIC - Eye Exam Eye Exam: absent: Nystagmus - ENT Exam ENT Exam: Mucous Membranes Moist - Neck Exam Neck Exam: Full ROM, Normal Inspection. absent: Tenderness - Respiratory Exam Respiratory Exam: Clear to Ausculation Bilateral, NORMAL BREATHING PATTERN - Cardiovascular Exam Cardiovascular Exam: REGULAR RHYTHM - GI/Abdominal Exam GI & Abdominal Exam: Soft, Normal Bowel Sounds. absent: Tenderness - Extremities Exam Extremities Exam: Pedal Edema - Neurological Exam Neurological Exam: Alert, Awake, Normal Gait, Oriented x3 - Psychiatric Exam Psychiatric exam: Normal Affect, Normal Mood - Skin Skin Exam: Intact, Normal Color Assessment and Plan - Assessment and Plan (Free Text) Plan: Patient with history of uncontrolled NIDDM2, admitted for hypglycemia, resolved - now with baseline high sugar levels,on Insulin - with limited pill choices due to abnormal renal function , insulin being adjusted accrdingly uncontrolled Hypertension - , on high levels with ongoing medication adjustment , some changes as per input CAD COPD stable
[2018-02-25] MEDS: (Novolog) Insulin Aspart, Recombinant 100 u/ml 10 ml vial SC SCH ×4 (08:44→22:14)
[2018-02-25] MEDS: Pantoprazole 40 mg EC Tab PO SCH (09:21)
[2018-02-25] MEDS: Omega-3-Acid Ethyl Esters 1 GM Cap PO SCH ×2 (09:21→17:44)
[2018-02-25] MEDS: Metoprolol Succinate 50 mg XL Tab PO SCH (09:22)
[2018-02-25] MEDS: (Lantus) Insulin Glargine, Recombinant SC SCH (09:23)
[2018-02-25] MEDS ORDERED: Pneumococcal 23-Valent Vaccine IM ONE (14:00)
--- NOTE | 2018-02-25 22:18 | CP.PCM.PN ---
Subjective - Date & Time of Evaluation Date of Evaluation: 02/25/18 Time of Evaluation: 13:10 - Subjective Subjective: Patient seen and evaluated Comfortable Denies chest pain and dyspnea Objective - Vital Signs/Intake and Output Vital Signs (last 24 hours): Temp Pulse Resp BP Pulse Ox 97.4 F L 63 20 154/91 H 96 02/25/18 15:00 02/25/18 15:00 02/25/18 15:00 02/25/18 15:00 02/25/18 15:00 - Medications Medications: Current Medications Allopurinol (Zyloprim) 100 mg PO BID [facility] Last Admin: 02/25/18 17:44 Dose: 100 mg Aspirin (Ecotrin) 81 mg PO DAILY [facility] Last Admin: 02/25/18 09:21 Dose: 81 mg Clonidine HCl (Catapres) 0.1 mg PO BID [facility] Last Admin: 02/25/18 17:44 Dose: 0.1 mg Clopidogrel Bisulfate (Plavix) 75 mg PO DAILY [facility] Last Admin: 02/25/18 09:22 Dose: 75 mg Fenofibrate (Tricor) 145 mg PO DAILY [facility] Last Admin: 02/25/18 09:21 Dose: 145 mg Furosemide (Lasix) 20 mg PO DAILY [facility] Last Admin: 02/25/18 09:23 Dose: 20 mg Hydralazine HCl (Apresoline) 100 mg PO TID [facility] Insulin Aspart (Novolog) 0 unit SC [facility] PRN Reason: Protocol Last Admin: 02/25/18 22:14 Dose: Not Given Insulin Glargine (Lantus) 12 unit SC [facility] Losartan Potassium (Cozaar) 100 mg PO DAILY [facility] Last Admin: 02/25/18 09:21 Dose: 100 mg Metoprolol Succinate (Toprol Xl) 50 mg PO DAILY [facility] Last Admin: 02/25/18 09:22 Dose: 50 mg Dphhj-2-Frty Ethyl Esters (Lovaza) 2 gm PO BID [facility] Last Admin: 02/25/18 17:44 Dose: 2 gm Pantoprazole Sodium (Protonix Ec Tab) 40 mg PO DAILY [facility] Last Admin: 02/25/18 09:21 Dose: 40 mg Rosuvastatin Calcium (Crestor) 10 mg PO HS [facility] Last Admin: 02/25/18 21:27 Dose: 10 mg - Labs Labs: 02/22/18 14:00 02/22/18 14:00 PT 12.6 SECONDS (9.7-12.2) H 02/22/18 14:00 INR 1.2 02/22/18 14:00 APTT 47 SECONDS (21-34) H 02/22/18 14:00
--- NOTE | 2018-02-26 05:34 | CP.PCM.PN ---
Subjective - Date & Time of Evaluation Date of Evaluation: 02/26/18 Time of Evaluation: 07:30 - Subjective Subjective: Received a call from floor- BP is still high despite another BP adjustment . Patient is AAAOx3, , conversant denies any complaints I called to bring patients home medication valsartan 320 mg daily to replace current Losartan . patient developed peripheral edema with amlodipine, but will have to give it for now and will discontinue once valsartan is received . Patient seen, quiet but is not happy wants to go home BP accelerated discussion - to be calm - ofelia when BP monitoring denes other complaints discussed valsartan discussion with staff Objective - Vital Signs/Intake and Output Vital Signs (last 24 hours): Temp Pulse Resp BP Pulse Ox 98.1 F 79 20 159/93 H 99 02/25/18 23:30 02/25/18 23:30 02/25/18 23:30 02/25/18 23:30 02/25/18 23:30 - Medications Medications: Current Medications Allopurinol (Zyloprim) 100 mg PO BID [facility] Last Admin: 02/25/18 17:44 Dose: 100 mg Aspirin (Ecotrin) 81 mg PO DAILY [facility] Last Admin: 02/25/18 09:21 Dose: 81 mg Clonidine HCl (Catapres) 0.1 mg PO TID [facility] Clopidogrel Bisulfate (Plavix) 75 mg PO DAILY [facility] Last Admin: 02/25/18 09:22 Dose: 75 mg Fenofibrate (Tricor) 145 mg PO DAILY [facility] Last Admin: 02/25/18 09:21 Dose: 145 mg Furosemide (Lasix) 20 mg PO DAILY [facility] Last Admin: 02/25/18 09:23 Dose: 20 mg Hydralazine HCl (Apresoline) 100 mg PO TID [facility] Insulin Aspart (Novolog) 0 unit SC [facility] PRN Reason: Protocol Last Admin: 02/25/18 22:14 Dose: Not Given Insulin Glargine (Lantus) 12 unit SC [facility] Losartan Potassium (Cozaar) 100 mg PO DAILY [facility] Last Admin: 02/25/18 09:21 Dose: 100 mg Metoprolol Succinate (Toprol Xl) 50 mg PO DAILY [facility] Last Admin: 02/25/18 09:22 Dose: 50 mg Zmzzk-4-Ggvt Ethyl Esters (Lovaza) 2 gm PO BID [facility] Last Admin: 02/25/18 17:44 Dose: 2 gm Pantoprazole Sodium (Protonix Ec Tab) 40 mg PO DAILY [facility] Last Admin: 02/25/18 09:21 Dose: 40 mg Rosuvastatin Calcium (Crestor) 10 mg PO HS [facility] Last Admin: 02/25/18 21:27 Dose: 10 mg - Labs Labs: 02/22/18 14:00 02/22/18 14:00 PT 12.6 SECONDS (9.7-12.2) H 02/22/18 14:00 INR 1.2 02/22/18 14:00 APTT 47 SECONDS (21-34) H 02/22/18 14:00 - Constitutional Appears: Well, Non-toxic, No Acute Distress, Other (quiet but upset) - Head Exam Head Exam: ATRAUMATIC, NORMOCEPHALIC - Eye Exam Eye Exam: Normal appearance - ENT Exam ENT Exam: Mucous Membranes Moist - Neck Exam Neck Exam: Full ROM. absent: Tenderness - Respiratory Exam Respiratory Exam: Clear to Ausculation Bilateral, NORMAL BREATHING PATTERN - Cardiovascular Exam Cardiovascular Exam: REGULAR RHYTHM - GI/Abdominal Exam GI & Abdominal Exam: Soft, Normal Bowel Sounds. absent: Tenderness - Extremities Exam Extremities Exam: Full ROM, Pedal Edema - Neurological Exam Neurological Exam: Alert, Awake, Normal Gait, Oriented x3 - Psychiatric Exam Psychiatric exam: Normal Affect, Normal Mood - Skin Skin Exam: Intact (head is better), Normal Color Assessment and Plan - Assessment and Plan (Free Text) Assessment: Patient with multiple medical problems Parietal hematoma- form fall- no active bleeding , no neurological sign and symptoms Hypoglycemia resolved- Uncontrolled IDDM2- adjusting Insulin CRI- under the care of renal Accelerated Hypertension- very resistant - adjusting medicati COPD stable CAD 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
[2018-02-26] MEDS: (Novolog) Insulin Aspart, Recombinant 100 u/ml 10 ml vial SC SCH ×2 (08:13→13:36)
[2018-02-26 08:27] VITALS: RESP 18; TEMP 97.6; O2SAT 98
[2018-02-26] MEDS: Metoprolol Succinate 50 mg XL Tab PO SCH (09:57)
[2018-02-26] MEDS: Omega-3-Acid Ethyl Esters 1 GM Cap PO SCH (09:57)
[2018-02-26] MEDS: Pantoprazole 40 mg EC Tab PO SCH (09:58)
[2018-02-26] MEDS ORDERED: VALSARTAN 320 MG PO SCH (10:00)
[2018-02-26 13:41] VITALS: BP 148/81; PULSE 81
--- NOTE | 2018-02-26 14:04 | CP.PCM.PN ---
Subjective - Date & Time of Evaluation Date of Evaluation: 02/26/18 Time of Evaluation: 14:01 - Subjective Subjective: PT SEEN BY DR. FOY THIS MORNING AND CLEARED FOR D/C HOME. REQUESTED [employer] OPERATOR TO PROVIDE PT WITH RX FOR NEW MEDS. I DISCUSSED NEW RX WITH PT AND AT BEDSIDE. VERBALIZES UNDERSTANDING. NO FURTHER ORDERS. Objective - Vital Signs/Intake and Output Vital Signs (last 24 hours): Temp Pulse Resp BP Pulse Ox 97.6 F 81 18 148/81 98 02/26/18 07:00 02/26/18 13:40 02/26/18 07:00 02/26/18 13:40 02/26/18 07:00 - Medications Medications: Current Medications Allopurinol (Zyloprim) 100 mg PO BID [facility] Last Admin: 02/26/18 09:58 Dose: 100 mg Aspirin (Ecotrin) 81 mg PO DAILY [facility] Last Admin: 02/26/18 09:58 Dose: 81 mg Clonidine HCl (Catapres) 0.1 mg PO TID [facility] Last Admin: 02/26/18 13:36 Dose: 0.1 mg Clopidogrel Bisulfate (Plavix) 75 mg PO DAILY [facility] Last Admin: 02/26/18 09:57 Dose: 75 mg Fenofibrate (Tricor) 145 mg PO DAILY [facility] Last Admin: 02/26/18 09:57 Dose: 145 mg Furosemide (Lasix) 20 mg PO DAILY [facility] Last Admin: 02/26/18 09:58 Dose: 20 mg Home Med (Patient's Own Medication) 1 tab PO DAILY [facility] Last Admin: 02/26/18 09:58 Dose: 1 tab Hydralazine HCl (Apresoline) 100 mg PO TID [facility] Last Admin: 02/26/18 13:35 Dose: 100 mg Insulin Aspart (Novolog) 0 unit SC ACHS [facility] PRN Reason: Protocol Last Admin: 02/26/18 13:36 Dose: 3 unit Insulin Glargine (Lantus) 15 unit SC HS [facility] Metoprolol Succinate (Toprol Xl) 50 mg PO DAILY [facility] Last Admin: 02/26/18 09:57 Dose: 50 mg Rkthh-4-Xerj Ethyl Esters (Lovaza) 2 gm PO BID [facility] Last Admin: 02/26/18 09:57 Dose: 2 gm Pantoprazole Sodium (Protonix Ec Tab) 40 mg PO DAILY [facility] Last Admin: 02/26/18 09:58 Dose: 40 mg Rosuvastatin Calcium (Crestor) 10 mg PO HS [facility] Last Admin: 02/25/18 21:27 Dose: 10 mg - Labs Labs: 02/22/18 14:00 02/22/18 14:00 PT 12.6 SECONDS (9.7-12.2) H 02/22/18 14:00 INR 1.2 02/22/18 14:00 APTT 47 SECONDS (21-34) H 02/22/18 14:00
--- NOTE | 2018-02-26 17:32 | CP.PCM.DIS ---
Provider - Provider Date of Admission: 02/22/18 15:37 Attending physician: Paola Adams MD Time Spent in preparation of Discharge (in minutes): 30 Hospital Course - Lab Results Lab Results: Most Recent Lab Values WBC 8.7 K/uL (4.8-10.8) 02/22/18 14:00 RBC 3.99 Mil/uL (4.40-5.90) L 02/22/18 14:00 Hgb 11.5 g/dL (12.0-18.0) L 02/22/18 14:00 Hct 34.5 % (35.0-51.0) L 02/22/18 14:00 MCV 86.5 fL (80.0-94.0) D 02/22/18 14:00 MCH 28.9 pg (27.0-31.0) 02/22/18 14:00 MCHC 33.4 g/dL (33.0-37.0) 02/22/18 14:00 RDW 17.0 % (11.5-14.5) H 02/22/18 14:00 Plt Count 162 K/uL (130-400) 02/22/18 14:00 MPV 9.1 fL (7.2-11.7) 02/22/18 14:00 Neut % (Auto) 83.6 % (50.0-75.0) H 02/22/18 14:00 Lymph % (Auto) 9.3 % (20.0-40.0) L 02/22/18 14:00 Toombs % (Auto) 5.4 % (0.0-10.0) 02/22/18 14:00 Eos % (Auto) 1.6 % (0.0-4.0) 02/22/18 14:00 Baso % (Auto) 0.1 % (0.0-2.0) 02/22/18 14:00 Neut # (Auto) 7.2 K/uL (1.8-7.0) H 02/22/18 14:00 Lymph # (Auto) 0.8 K/uL (1.0-4.3) L 02/22/18 14:00 Toombs # (Auto) 0.5 K/uL (0.0-0.8) 02/22/18 14:00 Eos # (Auto) 0.1 K/uL (0.0-0.7) 02/22/18 14:00 Baso # (Auto) 0.0 K/uL (0.0-0.2) 02/22/18 14:00 Neutrophils % (Manual) 82 % (50-75) H 02/22/18 14:00 Lymphocytes % (Manual) 12 % (20-40) L 02/22/18 14:00 Monocytes % (Manual) 6 % (0-10) 02/22/18 14:00 Platelet Estimate Normal (NORMAL) 02/22/18 14:00 Polychromasia Slight 02/22/18 14:00 Hypochromasia (manual) Slight 02/22/18 14:00 Anisocytosis (manual) Slight 02/22/18 14:00 PT 12.6 SECONDS (9.7-12.2) H 02/22/18 14:00 INR 1.2 02/22/18 14:00 APTT 47 SECONDS (21-34) H 02/22/18 14:00 Sodium 143 mmol/L (132-148) 02/22/18 14:00 Potassium 4.2 mmol/L (3.6-5.2) 02/22/18 14:00 Chloride 102 mmol/L (98-107) 02/22/18 14:00 Carbon Dioxide 27 mmol/L (22-30) 02/22/18 14:00 Anion Gap 18 (10-20) 02/22/18 14:00 BUN 54 mg/dL (9-20) H 02/22/18 14:00 Creatinine 2.7 mg/dL (0.8-1.5) H 02/22/18 14:00 Est GFR ( Amer) 29 02/22/18 14:00 Est GFR (Non-Af Amer) 24 02/22/18 14:00 POC Glucose (mg/dL) 264 mg/dL (65-110) H 02/26/18 13:54 Random Glucose 28 mg/dL (75-110) L* D 02/22/18 14:00 Calcium 9.3 mg/dl (8.6-10.4) 02/22/18 14:00 Total Bilirubin 0.5 mg/dL (0.2-1.3) 02/22/18 14:00 AST 54 U/L (17-59) 02/22/18 14:00 ALT 32 U/L (21-72) 02/22/18 14:00 Alkaline Phosphatase 92 U/L (38-126) 02/22/18 14:00 Total Creatine Kinase 229 U/L (55-170) H 02/23/18 00:30 CK-MB (Mass) 3.02 ng/mL (0.0-3.38) 02/23/18 00:30 Troponin I 0.3100 ng/mL (0.00-0.120) H* 02/23/18 00:30 NT-Pro-B Natriuret Pep 5940 pg/mL (0-900) H 02/22/18 14:00 Total Protein 7.8 g/dL (6.3-8.3) 02/22/18 14:00 Albumin 3.9 g/dL (3.5-5.0) 02/22/18 14:00 Globulin 3.9 gm/dL (2.2-3.9) 02/22/18 14:00 Albumin/Globulin Ratio 1.0 (1.0-2.1) 02/22/18 14:00 Urine Color Yellow (YELLOW) 02/22/18 15:57 Urine Clarity Clear (Clear) 02/22/18 15:57 Urine pH 5.0 (5.0-8.0) 02/22/18 15:57 Ur Specific Rosman 1.014 (1.003-1.030) 02/22/18 15:57 Urine Protein 2+ mg/dL (NEGATIVE) H 02/22/18 15:57 Urine Glucose (UA) 1+ mg/dL (Normal) H 02/22/18 15:57 Urine Ketones Negative mg/dL (NEGATIVE) 02/22/18 15:57 Urine Blood Negative (NEGATIVE) 02/22/18 15:57 Urine Nitrate Negative (NEGATIVE) 02/22/18 15:57 Urine Bilirubin Negative (NEGATIVE) 02/22/18 15:57 Urine Urobilinogen Normal mg/dL (0.2-1.0) 02/22/18 15:57 Ur Leukocyte Esterase Neg Edy/uL (Negative) 02/22/18 15:57 Urine WBC (Auto) < 1 /hpf (0-5) 02/22/18 15:57 Urine RBC (Auto) < 1 /hpf (0-3) 02/22/18 15:57 Ur Squamous Epith Cells < 1 /hpf (0-5) 02/22/18 15:57 - Hospital Course Hospital Course: admitted for fall with parietal hematoma,nd found to have hypoglycemia , that was corredted and noted to have runs of high Bp - with medication adjustment - till imoroved - Date & Time of H&P Date of H&P: 02/26/18 Time of H&P: 17:32 Discharge Exam - Head Exam Head Exam: ATRAUMATIC, NORMOCEPHALIC - Eye Exam Eye Exam: absent: Nystagmus - ENT Exam ENT Exam: Mucous Membranes Moist - Respiratory Exam Respiratory Exam: Clear to PA & Lateral, NORMAL BREATHING PATTERN - Cardiovascular Exam Cardiovascular Exam: REGULAR RHYTHM - GI/Abdominal Exam GI & Abdominal Exam: Normal Bowel Sounds, Soft. absent: Tenderness - Extremities Exam Extremities exam: full ROM, pedal edema - Neurological Exam Neurological exam: Alert, Normal Gait, Oriented x3 - Psychiatric Exam Psychiatric exam: Normal Affect, Normal Mood - Skin Skin Exam: Intact, Normal Color Discharge Plan - Discharge Medications Prescriptions: RX: cloNIDine [Catapres] 0.1 mg PO TID #90 tab Insulin Human Regular [HumuLIN R] 0 units SC ACHS #1 vial Lantus Solostar 15 unit SC HS #1 RX: Furosemide [Lasix] 20 mg PO DAILY #30 tab Blood Sugar Diagnostic [Test Strips] 1 each MC ACHS #50 strip - Follow Up Plan Condition: GUARDED Disposition: HOME/ ROUTINE Instructions: Insulin Regular, Heart Healthy Diet, Heart Failure, Adult (DC), Carbohydrate Counting Diet, Diabetes Diet , Furosemide, Insulin Glargine, Renal Failure Diet (DC) Additional Instructions: -FOLLOW UP WITH DR. ADAMS IN THE OFFICE IN 1 WEEK---CALL THE OFFICE TO MAKE AN APPOINTMENT TIME. -CHANGES TO YOUR MEDICATIONS: CLONIDINE 0.1 MG---TAKE 1 TABLET BY MOUTH 3 TIMES A DAY. LASIX (WATER PILL FOR YOUR BLOOD PRESSURE) 20 MG--TAKE 1 TABLET BY MOUTH ONCE A DAY. -CONTINUE OTHER MEDICATIONS USUAL, WELL YOUR INSULIN. Referrals: Paola Adams MD [Medical Doctor] -
[2018-02-26] MEDS ORDERED: (Lantus) Insulin Glargine, Recombinant SC SCH ×2 (22:00)
== END 2018-02-26 15:15 | disposition home or self-care (01) | DRG 638 ==
LOC: C.ER 13:15 → C.9E 15:37 → C.6T 21:55
PROVIDERS: ADMIT Internal Medicine; ATTEND Internal Medicine
DX: E11.649 Type 2 diabetes mellitus with hypoglycemia without coma (principal); I13.0 Hypertensive heart and chronic kidney disease with heart failure and stage 1 through stage 4 chronic kidney disease, or unspecified chronic kidney disease; S00.03XA Contusion of scalp, initial encounter; E11.22 Type 2 diabetes mellitus with diabetic chronic kidney disease; I25.10 Atherosclerotic heart disease of native coronary artery without angina pectoris; I50.9 Heart failure, unspecified; J44.9 Chronic obstructive pulmonary disease, unspecified; M10.9 Gout, unspecified; N18.9 Chronic kidney disease, unspecified; W01.0XXA Fall on same level from slipping, tripping and stumbling without subsequent striking against object, initial encounter; Z87.891 Personal history of nicotine dependence; Z95.1 Presence of aortocoronary bypass graft; R41.3 Other amnesia; F22 Delusional disorders; E11.65 Type 2 diabetes mellitus with hyperglycemia; Z79.4 Long term (current) use of insulin

== ENCOUNTER 2018-11-08 09:12 | Outpatient (CLI) | payer MEDICARE | END 2018-11-08 09:13 | disposition home or self-care (01) | LOC: C.PAT 09:12 ==